=== PATIENT | female | born 1935 | race Two or more races ===

== ENCOUNTER 2022-12-01 | Inpatient (IN) | payer MEDICARE, MEDICAID ==
[~2022-12-01] VITALS: Ht 160 cm; Wt 99.3 kg
[2022-12-03] VITALS (7 sets, daily range): TEMP 98.4; O2SAT 98–99
[2022-12-03] MEDS ORDERED: REMEDY ESSENTIAL ZINC PASTE 113 GM TP PRN (07:15)
[2022-12-03] MEDS ORDERED: POLYVINYL ALCOHOL OPHT DROPS 15 ML BOTTLE EACHEYE PRN (07:15)
[2022-12-03] MEDS ORDERED: MELATONIN 3 MG TABLET PO PRN (07:15)
[2022-12-03] MEDS ORDERED: IPRATROPIUM/ALBUTEROL SULFATE 14.7 GM INHALER INH PRN (07:15)
[2022-12-03] MEDS: IPRATROPIUM/ALBUTEROL SULFATE 3 ML AMPUL.NEB NEB SCH ×3 (07:59→19:15)
[2022-12-03] MEDS: HYDROGEN PEROXIDE 3% 118 ML BOTTLE TP SCH ×2 (07:59→21:08)
[2022-12-03] MEDS: BRINZOLAMIDE EACHEYE SCH ×2 (09:49→17:41)
[2022-12-03] MEDS: FOLIC ACID 1 MG TABLET PO SCH (09:49)
[2022-12-03] MEDS: BRIMONIDINE EACHEYE SCH ×2 (09:49→17:41)
[2022-12-03] MEDS: FERROUS SULFATE 325 MG TABEC PO SCH (09:49)
[2022-12-03] MEDS: TOLTERODINE 1 MG TABLET PO SCH ×2 (09:49→17:41)
[2022-12-03] MEDS: levETIRAcetam 500 MG/5 ML LIQUID UDC PO SCH ×2 (09:50→17:41)
[2022-12-03] MEDS: REMEDY ESSENTIAL ZINC PASTE 113 GM TP SCH ×2 (09:50→21:06)
[2022-12-03] MEDS: VITAMINS A AND D OINT 42 GM TUBE TP SCH ×2 (09:50→21:06)
[2022-12-03] MEDS: MIRALAX 17 GM POWD.PACK PO SCH ×2 (09:50→17:41)
[2022-12-03] MEDS: ASPIRIN 81 MG TAB.CHEW PO SCH (17:41)
[2022-12-03] MEDS: OMEGA-3 FATTY ACIDS/FISH OIL CAPSULE PO SCH (17:41)
[2022-12-03] MEDS: CHOLECALCIFEROL 1,000 UNIT TABLET PO SCH (17:42)
[2022-12-03] MEDS: ATORVASTATIN 20 MG TABLET PO SCH (17:42)
[2022-12-03] MEDS: MULTIVIT, IRON, MIN NO. 8, FA TABLET PO SCH (17:42)
[2022-12-03] MEDS: MAGNESIUM OXIDE 400 MG TABLET PO SCH (17:42)
[2022-12-03] MEDS: LATANOPROST OPHT DROP 2.5 ML BOTTLE EACHEYE SCH (21:06)
[2022-12-04] VITALS (11 sets, daily range): TEMP 98–98.2; O2SAT 97–99
[2022-12-04] MEDS: IPRATROPIUM/ALBUTEROL SULFATE 3 ML AMPUL.NEB NEB SCH ×4 (01:30→19:30)
[2022-12-04] MEDS: LEVOTHYROXINE SODIUM 112 MCG TABLET PO SCH (05:38)
[2022-12-04] MEDS: HYDROGEN PEROXIDE 3% 118 ML BOTTLE TP SCH ×2 (07:31→20:43)
[2022-12-04] MEDS: FOLIC ACID 1 MG TABLET PO SCH (09:40)
[2022-12-04] MEDS: levETIRAcetam 500 MG/5 ML LIQUID UDC PO SCH ×2 (09:40→17:33)
[2022-12-04] MEDS: TOLTERODINE 1 MG TABLET PO SCH ×2 (09:40→17:33)
[2022-12-04] MEDS: MIRALAX 17 GM POWD.PACK PO SCH ×2 (09:40→17:33)
[2022-12-04] MEDS: FERROUS SULFATE 325 MG TABEC PO SCH (09:40)
[2022-12-04] MEDS: BRIMONIDINE EACHEYE SCH ×2 (09:41→17:33)
[2022-12-04] MEDS: VITAMINS A AND D OINT 42 GM TUBE TP SCH ×2 (09:41→21:00)
[2022-12-04] MEDS: REMEDY ESSENTIAL ZINC PASTE 113 GM TP SCH ×2 (09:41→21:00)
[2022-12-04] MEDS: BRINZOLAMIDE EACHEYE SCH ×2 (09:41→17:33)
[2022-12-04] MEDS: ASPIRIN 81 MG TAB.CHEW PO SCH (17:33)
[2022-12-04] MEDS: OMEGA-3 FATTY ACIDS/FISH OIL CAPSULE PO SCH (17:33)
[2022-12-04] MEDS: ATORVASTATIN 20 MG TABLET PO SCH (17:34)
[2022-12-04] MEDS: MULTIVIT, IRON, MIN NO. 8, FA TABLET PO SCH (17:34)
[2022-12-04] MEDS: CHOLECALCIFEROL 1,000 UNIT TABLET PO SCH (17:34)
[2022-12-04] MEDS: MAGNESIUM OXIDE 400 MG TABLET PO SCH (17:34)
[2022-12-04] MEDS: LATANOPROST OPHT DROP 2.5 ML BOTTLE EACHEYE SCH (21:00)
[2022-12-05] VITALS (10 sets, daily range): TEMP 98–98.2; O2SAT 97–99
[2022-12-05] MEDS: IPRATROPIUM/ALBUTEROL SULFATE 3 ML AMPUL.NEB NEB SCH ×4 (01:32→19:09)
[2022-12-05] MEDS: LEVOTHYROXINE SODIUM 112 MCG TABLET PO SCH (06:10)
[2022-12-05] MEDS: HYDROGEN PEROXIDE 3% 118 ML BOTTLE TP SCH ×2 (07:16→21:14)
[2022-12-05] MEDS: TOLTERODINE 1 MG TABLET PO SCH ×2 (09:26→17:05)
[2022-12-05] MEDS: BRIMONIDINE EACHEYE SCH ×2 (09:26→17:00)
[2022-12-05] MEDS: BRINZOLAMIDE EACHEYE SCH ×2 (09:26→17:00)
[2022-12-05] MEDS: FERROUS SULFATE 325 MG TABEC PO SCH (09:26)
[2022-12-05] MEDS: levETIRAcetam 500 MG/5 ML LIQUID UDC PO SCH ×2 (09:27→17:05)
[2022-12-05] MEDS: MIRALAX 17 GM POWD.PACK PO SCH ×2 (09:27→17:06)
[2022-12-05] MEDS: VITAMINS A AND D OINT 42 GM TUBE TP SCH ×2 (09:27→20:28)
[2022-12-05] MEDS: FOLIC ACID 1 MG TABLET PO SCH (09:27)
[2022-12-05] MEDS: REMEDY ESSENTIAL ZINC PASTE 113 GM TP SCH ×2 (09:27→20:28)
[2022-12-05] MEDS: ASPIRIN 81 MG TAB.CHEW PO SCH (17:06)
[2022-12-05] MEDS: OMEGA-3 FATTY ACIDS/FISH OIL CAPSULE PO SCH (17:06)
[2022-12-05] MEDS: ATORVASTATIN 20 MG TABLET PO SCH (17:06)
[2022-12-05] MEDS: CHOLECALCIFEROL 1,000 UNIT TABLET PO SCH (17:07)
[2022-12-05] MEDS: MULTIVIT, IRON, MIN NO. 8, FA TABLET PO SCH (17:07)
[2022-12-05] MEDS: MAGNESIUM OXIDE 400 MG TABLET PO SCH (17:07)
[2022-12-05] MEDS: GUAIFENESIN SUGAR FREE 100 MG/5 ML UDC PO PRN (17:11)
[2022-12-05] MEDS: BENZONATATE 100 MG CAPSULE PO PRN (17:11)
[2022-12-05] MEDS: LATANOPROST OPHT DROP 2.5 ML BOTTLE EACHEYE SCH (20:27)
[2022-12-06] VITALS (11 sets, daily range): TEMP 96.9–97; O2SAT 98–99
[2022-12-06] MEDS: IPRATROPIUM/ALBUTEROL SULFATE 3 ML AMPUL.NEB NEB SCH ×4 (02:22→19:26)
[2022-12-06] MEDS: LEVOTHYROXINE SODIUM 112 MCG TABLET PO SCH (05:51)
[2022-12-06] MEDS: HYDROGEN PEROXIDE 3% 118 ML BOTTLE TP SCH ×2 (07:35→21:00)
[2022-12-06] MEDS: VITAMINS A AND D OINT 42 GM TUBE TP SCH ×2 (09:00→21:36)
[2022-12-06] MEDS: REMEDY ESSENTIAL ZINC PASTE 113 GM TP SCH ×2 (09:00→21:35)
[2022-12-06] MEDS: BRIMONIDINE EACHEYE SCH ×2 (09:50→17:04)
[2022-12-06] MEDS: BRINZOLAMIDE EACHEYE SCH ×2 (09:50→17:04)
[2022-12-06] MEDS: TOLTERODINE 1 MG TABLET PO SCH ×2 (09:52→17:05)
[2022-12-06] MEDS: FERROUS SULFATE 325 MG TABEC PO SCH (09:56)
[2022-12-06] MEDS: FOLIC ACID 1 MG TABLET PO SCH (09:57)
[2022-12-06] MEDS: MIRALAX 17 GM POWD.PACK PO SCH ×2 (09:58→17:06)
[2022-12-06] MEDS: levETIRAcetam 500 MG/5 ML LIQUID UDC PO SCH ×2 (09:58→17:05)
[2022-12-06] MEDS: BENZONATATE 100 MG CAPSULE PO PRN (10:00)
[2022-12-06] MEDS: GUAIFENESIN SUGAR FREE 100 MG/5 ML UDC PO PRN (14:14)
[2022-12-06] MEDS: OMEGA-3 FATTY ACIDS/FISH OIL CAPSULE PO SCH (17:06)
[2022-12-06] MEDS: ASPIRIN 81 MG TAB.CHEW PO SCH (17:06)
[2022-12-06] MEDS: ATORVASTATIN 20 MG TABLET PO SCH (17:07)
[2022-12-06] MEDS: MAGNESIUM OXIDE 400 MG TABLET PO SCH (17:07)
[2022-12-06] MEDS: MULTIVIT, IRON, MIN NO. 8, FA TABLET PO SCH (17:07)
[2022-12-06] MEDS: CHOLECALCIFEROL 1,000 UNIT TABLET PO SCH (17:08)
[2022-12-06] MEDS: HYDROGEN PEROXIDE 3% 118 ML BOTTLE TP PRN (19:27)
[2022-12-06] MEDS: LATANOPROST OPHT DROP 2.5 ML BOTTLE EACHEYE SCH (21:35)
[2022-12-07] VITALS (11 sets, daily range): TEMP 97.6–98.4; O2SAT 98–99
[2022-12-07] MEDS: IPRATROPIUM/ALBUTEROL SULFATE 3 ML AMPUL.NEB NEB SCH ×4 (00:16→19:15)
[2022-12-07] MEDS: LEVOTHYROXINE SODIUM 112 MCG TABLET PO SCH (07:15)
[2022-12-07] MEDS: HYDROGEN PEROXIDE 3% 118 ML BOTTLE TP SCH ×2 (09:00→21:00)
[2022-12-07] MEDS: TOLTERODINE 1 MG TABLET PO SCH ×2 (10:00→17:29)
[2022-12-07] MEDS: MIRALAX 17 GM POWD.PACK PO SCH ×2 (10:00→17:30)
[2022-12-07] MEDS: FERROUS SULFATE 325 MG TABEC PO SCH (10:00)
[2022-12-07] MEDS: FOLIC ACID 1 MG TABLET PO SCH (10:00)
[2022-12-07] MEDS: levETIRAcetam 500 MG/5 ML LIQUID UDC PO SCH ×2 (10:00→17:29)
[2022-12-07] MEDS: VITAMINS A AND D OINT 42 GM TUBE TP SCH ×2 (10:00→20:49)
[2022-12-07] MEDS: REMEDY ESSENTIAL ZINC PASTE 113 GM TP SCH ×2 (10:00→20:49)
[2022-12-07] MEDS: BRINZOLAMIDE EACHEYE SCH ×2 (10:00→17:29)
[2022-12-07] MEDS: GUAIFENESIN SUGAR FREE 100 MG/5 ML UDC PO PRN ×2 (10:00→17:33)
[2022-12-07] MEDS: BRIMONIDINE EACHEYE SCH ×2 (10:00→17:29)
[2022-12-07] MEDS: OMEGA-3 FATTY ACIDS/FISH OIL CAPSULE PO SCH (17:30)
[2022-12-07] MEDS: ASPIRIN 81 MG TAB.CHEW PO SCH (17:30)
[2022-12-07] MEDS: ATORVASTATIN 20 MG TABLET PO SCH (17:32)
[2022-12-07] MEDS: CHOLECALCIFEROL 1,000 UNIT TABLET PO SCH (17:32)
[2022-12-07] MEDS: MAGNESIUM OXIDE 400 MG TABLET PO SCH (17:32)
[2022-12-07] MEDS: MULTIVIT, IRON, MIN NO. 8, FA TABLET PO SCH (17:32)
[2022-12-07] MEDS: BENZONATATE 100 MG CAPSULE PO PRN (17:33)
[2022-12-07] MEDS: LATANOPROST OPHT DROP 2.5 ML BOTTLE EACHEYE SCH (20:49)
[2022-12-08] VITALS (11 sets, daily range): TEMP 98.2–98.5; O2SAT 98–99
[2022-12-08] MEDS: IPRATROPIUM/ALBUTEROL SULFATE 3 ML AMPUL.NEB NEB SCH ×4 (00:45→19:30)
[2022-12-08] MEDS: LEVOTHYROXINE SODIUM 112 MCG TABLET PO SCH (05:05)
[2022-12-08] MEDS: HYDROGEN PEROXIDE 3% 118 ML BOTTLE TP SCH ×2 (08:13→21:50)
[2022-12-08] MEDS: BRINZOLAMIDE EACHEYE SCH ×2 (09:24→16:25)
[2022-12-08] MEDS: BRIMONIDINE EACHEYE SCH ×2 (09:24→16:25)
[2022-12-08] MEDS: TOLTERODINE 1 MG TABLET PO SCH ×2 (09:24→16:25)
[2022-12-08] MEDS: REMEDY ESSENTIAL ZINC PASTE 113 GM TP SCH ×2 (09:26→21:00)
[2022-12-08] MEDS: levETIRAcetam 500 MG/5 ML LIQUID UDC PO SCH ×2 (09:26→16:25)
[2022-12-08] MEDS: VITAMINS A AND D OINT 42 GM TUBE TP SCH ×2 (09:26→21:00)
[2022-12-08] MEDS: FOLIC ACID 1 MG TABLET PO SCH (09:26)
[2022-12-08] MEDS: MIRALAX 17 GM POWD.PACK PO SCH ×2 (09:26→16:25)
[2022-12-08] MEDS: FERROUS SULFATE 325 MG TABEC PO SCH (09:34)
[2022-12-08] MEDS: BENZONATATE 100 MG CAPSULE PO PRN (16:40)
[2022-12-08] MEDS: GUAIFENESIN SUGAR FREE 100 MG/5 ML UDC PO PRN (16:40)
[2022-12-08] MEDS: ATORVASTATIN 20 MG TABLET PO SCH (17:07)
[2022-12-08] MEDS: CHOLECALCIFEROL 1,000 UNIT TABLET PO SCH (17:07)
[2022-12-08] MEDS: ASPIRIN 81 MG TAB.CHEW PO SCH (17:07)
[2022-12-08] MEDS: MULTIVIT, IRON, MIN NO. 8, FA TABLET PO SCH (17:07)
[2022-12-08] MEDS: MAGNESIUM OXIDE 400 MG TABLET PO SCH (17:07)
[2022-12-08] MEDS: OMEGA-3 FATTY ACIDS/FISH OIL CAPSULE PO SCH (17:07)
[2022-12-08] MEDS: LATANOPROST OPHT DROP 2.5 ML BOTTLE EACHEYE SCH (21:00)
[2022-12-09] VITALS (11 sets, daily range): TEMP 97.9–98.7; O2SAT 98–99
[2022-12-09] MEDS: IPRATROPIUM/ALBUTEROL SULFATE 3 ML AMPUL.NEB NEB SCH ×4 (01:15→19:09)
[2022-12-09] MEDS: LEVOTHYROXINE SODIUM 112 MCG TABLET PO SCH (05:31)
[2022-12-09 07:52] LABS: BASOPHILS % (AUTO) 0.4 % (0.0-2.0); EOSINOPHILS # (AUTO) 0.1 K/uL (0.0-0.7); EOSINOPHILS % (AUTO) 2.2 % (0.0-7.0); HEMATOCRIT 32.5 % (31.2-41.9); HEMOGLOBIN 10.6 g/dL (10.9-14.3); LYMPHOCYTES # (AUTO) 1.3 K/uL (0.8-4.8); LYMPHOCYTES % (AUTO) 22.8 % (20.5-51.5); MEAN CORPUSCULAR HEMOGLOBIN 29.3 uug (24.7-32.8); MEAN CORPUSCULAR HGB CONC 33 g/dL (32.3-35.6); MEAN CORPUSCULAR VOLUME 90.1 fL (75.5-95.3); MONOCYTES # (AUTO) 0.6 K/uL (0.1-1.30); MONOCYTES % (AUTO) 11.1 % (0.0-11.0); NEUTROPHILS # (AUTO) 3.6 K/uL (1.8-8.9); NEUTROPHILS % (AUTO) 63.5 % (38.5-71.5); PLATELET COUNT (AUTO) 225 K/uL (179-408); RED CELL DISTRIBUTION WIDTH 15.2 % (12.3-17.7); WHITE BLOOD COUNT (AUTO) 5.7 K/uL (3.8-11.8)
[2022-12-09 08:06] LABS: CALCIUM 8.6 mg/dL (8.5-10.1); CREATININE 0.6 mg/dL (0.6-1.3); MAGNESIUM 1.8 mg/dL (1.8-2.4); PHOSPHOROUS 4.3 mg/dL (2.5-4.9); POTASSIUM 4.4 mmol/L (3.5-5.1)
[2022-12-09 08:08] LABS: DIFFERENTIAL COMMENT 1
[2022-12-09] MEDS: HYDROGEN PEROXIDE 3% 118 ML BOTTLE TP SCH ×2 (08:30→20:54)
[2022-12-09] MEDS: REMEDY ESSENTIAL ZINC PASTE 113 GM TP SCH ×2 (09:00→21:00)
[2022-12-09] MEDS: TOLTERODINE 1 MG TABLET PO SCH ×2 (09:00→16:33)
[2022-12-09] MEDS: FERROUS SULFATE 325 MG TABEC PO SCH (09:00)
[2022-12-09] MEDS: BRIMONIDINE EACHEYE SCH ×2 (09:00→16:33)
[2022-12-09] MEDS: BRINZOLAMIDE EACHEYE SCH ×2 (09:00→16:33)
[2022-12-09] MEDS: levETIRAcetam 500 MG/5 ML LIQUID UDC PO SCH ×2 (09:00→16:33)
[2022-12-09] MEDS: FOLIC ACID 1 MG TABLET PO SCH (09:00)
[2022-12-09] MEDS: MIRALAX 17 GM POWD.PACK PO SCH ×2 (09:00→16:33)
[2022-12-09] MEDS: VITAMINS A AND D OINT 42 GM TUBE TP SCH ×2 (09:00→21:00)
[2022-12-09] MEDS: ASPIRIN 81 MG TAB.CHEW PO SCH (16:33)
[2022-12-09] MEDS: BENZONATATE 100 MG CAPSULE PO PRN (16:34)
[2022-12-09] MEDS: GUAIFENESIN SUGAR FREE 100 MG/5 ML UDC PO PRN (16:34)
[2022-12-09] MEDS: OMEGA-3 FATTY ACIDS/FISH OIL CAPSULE PO SCH (17:02)
[2022-12-09] MEDS: MAGNESIUM OXIDE 400 MG TABLET PO SCH (17:02)
[2022-12-09] MEDS: ATORVASTATIN 20 MG TABLET PO SCH (17:02)
[2022-12-09] MEDS: MULTIVIT, IRON, MIN NO. 8, FA TABLET PO SCH (17:02)
[2022-12-09] MEDS: CHOLECALCIFEROL 1,000 UNIT TABLET PO SCH (17:03)
[2022-12-09] MEDS: LATANOPROST OPHT DROP 2.5 ML BOTTLE EACHEYE SCH (21:00)
[2022-12-10] VITALS (10 sets, daily range): TEMP 97.7–97.8; O2SAT 98–99
[2022-12-10] MEDS: IPRATROPIUM/ALBUTEROL SULFATE 3 ML AMPUL.NEB NEB SCH ×4 (01:04→19:05)
[2022-12-10] MEDS: LEVOTHYROXINE SODIUM 112 MCG TABLET PO SCH ×2 (06:20→06:51)
[2022-12-10] MEDS: HYDROGEN PEROXIDE 3% 118 ML BOTTLE TP SCH ×2 (07:55→21:52)
[2022-12-10] MEDS: levETIRAcetam 500 MG/5 ML LIQUID UDC PO SCH ×2 (08:51→17:08)
[2022-12-10] MEDS: FOLIC ACID 1 MG TABLET PO SCH (08:51)
[2022-12-10] MEDS: FERROUS SULFATE 325 MG TABEC PO SCH (08:51)
[2022-12-10] MEDS: BRINZOLAMIDE EACHEYE SCH ×2 (08:51→17:06)
[2022-12-10] MEDS: TOLTERODINE 1 MG TABLET PO SCH ×2 (08:51→17:07)
[2022-12-10] MEDS: BRIMONIDINE EACHEYE SCH ×2 (08:51→17:06)
[2022-12-10] MEDS: MIRALAX 17 GM POWD.PACK PO SCH ×2 (08:51→17:07)
[2022-12-10] MEDS: GUAIFENESIN SUGAR FREE 100 MG/5 ML UDC PO PRN (08:52)
[2022-12-10] MEDS: BENZONATATE 100 MG CAPSULE PO PRN (08:52)
[2022-12-10] MEDS: REMEDY ESSENTIAL ZINC PASTE 113 GM TP SCH ×2 (08:52→21:03)
[2022-12-10] MEDS: VITAMINS A AND D OINT 42 GM TUBE TP SCH ×2 (08:52→21:03)
[2022-12-10] MEDS: ATORVASTATIN 20 MG TABLET PO SCH (17:07)
[2022-12-10] MEDS: MAGNESIUM OXIDE 400 MG TABLET PO SCH (17:08)
[2022-12-10] MEDS: ASPIRIN 81 MG TAB.CHEW PO SCH (17:08)
[2022-12-10] MEDS: OMEGA-3 FATTY ACIDS/FISH OIL CAPSULE PO SCH (17:08)
[2022-12-10] MEDS: MULTIVIT, IRON, MIN NO. 8, FA TABLET PO SCH (17:10)
[2022-12-10] MEDS: CHOLECALCIFEROL 1,000 UNIT TABLET PO SCH (17:11)
[2022-12-10] MEDS: LATANOPROST OPHT DROP 2.5 ML BOTTLE EACHEYE SCH (21:02)
[2022-12-11] VITALS (10 sets, daily range): TEMP 97.8; O2SAT 98–99
[2022-12-11] MEDS: IPRATROPIUM/ALBUTEROL SULFATE 3 ML AMPUL.NEB NEB SCH ×4 (01:07→19:22)
[2022-12-11] MEDS: HYDROGEN PEROXIDE 3% 118 ML BOTTLE TP SCH ×2 (08:42→19:22)
[2022-12-11] MEDS: BRIMONIDINE EACHEYE SCH ×2 (09:04→17:25)
[2022-12-11] MEDS: BRINZOLAMIDE EACHEYE SCH ×2 (09:04→17:25)
[2022-12-11] MEDS: TOLTERODINE 1 MG TABLET PO SCH ×2 (09:04→17:25)
[2022-12-11] MEDS: FERROUS SULFATE 325 MG TABEC PO SCH (09:05)
[2022-12-11] MEDS: FOLIC ACID 1 MG TABLET PO SCH (09:05)
[2022-12-11] MEDS: MIRALAX 17 GM POWD.PACK PO SCH ×2 (09:06→17:25)
[2022-12-11] MEDS: levETIRAcetam 500 MG/5 ML LIQUID UDC PO SCH ×2 (09:06→17:25)
[2022-12-11] MEDS: REMEDY ESSENTIAL ZINC PASTE 113 GM TP SCH ×2 (09:06→20:55)
[2022-12-11] MEDS: VITAMINS A AND D OINT 42 GM TUBE TP SCH ×2 (09:06→20:55)
[2022-12-11] MEDS: GUAIFENESIN SUGAR FREE 100 MG/5 ML UDC PO PRN (17:24)
[2022-12-11] MEDS: BENZONATATE 100 MG CAPSULE PO PRN (17:24)
[2022-12-11] MEDS: ASPIRIN 81 MG TAB.CHEW PO SCH (17:25)
[2022-12-11] MEDS: ATORVASTATIN 20 MG TABLET PO SCH (17:26)
[2022-12-11] MEDS: OMEGA-3 FATTY ACIDS/FISH OIL CAPSULE PO SCH (17:26)
[2022-12-11] MEDS: MAGNESIUM OXIDE 400 MG TABLET PO SCH (17:27)
[2022-12-11] MEDS: CHOLECALCIFEROL 1,000 UNIT TABLET PO SCH (17:27)
[2022-12-11] MEDS: MULTIVIT, IRON, MIN NO. 8, FA TABLET PO SCH (17:27)
[2022-12-11] MEDS: LATANOPROST OPHT DROP 2.5 ML BOTTLE EACHEYE SCH (20:55)
[2022-12-12] VITALS (10 sets, daily range): TEMP 97.5–98; O2SAT 98–99
[2022-12-12] MEDS: IPRATROPIUM/ALBUTEROL SULFATE 3 ML AMPUL.NEB NEB SCH ×4 (01:34→19:17)
[2022-12-12] MEDS: LEVOTHYROXINE SODIUM 112 MCG TABLET PO SCH (05:33)
[2022-12-12] MEDS: HYDROGEN PEROXIDE 3% 118 ML BOTTLE TP SCH ×2 (09:12→21:00)
[2022-12-12] MEDS: BRIMONIDINE EACHEYE SCH ×2 (09:44→17:20)
[2022-12-12] MEDS: TOLTERODINE 1 MG TABLET PO SCH ×2 (09:44→17:20)
[2022-12-12] MEDS: BRINZOLAMIDE EACHEYE SCH ×2 (09:44→17:20)
[2022-12-12] MEDS: FOLIC ACID 1 MG TABLET PO SCH (09:45)
[2022-12-12] MEDS: FERROUS SULFATE 325 MG TABEC PO SCH (09:45)
[2022-12-12] MEDS: levETIRAcetam 500 MG/5 ML LIQUID UDC PO SCH ×2 (09:46→17:20)
[2022-12-12] MEDS: VITAMINS A AND D OINT 42 GM TUBE TP SCH ×2 (09:47→21:03)
[2022-12-12] MEDS: MIRALAX 17 GM POWD.PACK PO SCH ×2 (09:47→17:20)
[2022-12-12] MEDS: REMEDY ESSENTIAL ZINC PASTE 113 GM TP SCH ×2 (09:47→21:03)
[2022-12-12] MEDS: MAGNESIUM OXIDE 400 MG TABLET PO SCH (17:20)
[2022-12-12] MEDS: ATORVASTATIN 20 MG TABLET PO SCH (17:20)
[2022-12-12] MEDS: CHOLECALCIFEROL 1,000 UNIT TABLET PO SCH (17:20)
[2022-12-12] MEDS: OMEGA-3 FATTY ACIDS/FISH OIL CAPSULE PO SCH (17:20)
[2022-12-12] MEDS: ASPIRIN 81 MG TAB.CHEW PO SCH (17:20)
[2022-12-12] MEDS: MULTIVIT, IRON, MIN NO. 8, FA TABLET PO SCH (17:20)
[2022-12-12] MEDS: GUAIFENESIN SUGAR FREE 100 MG/5 ML UDC PO PRN (17:36)
[2022-12-12] MEDS: LATANOPROST OPHT DROP 2.5 ML BOTTLE EACHEYE SCH (21:03)
[2022-12-13] VITALS (10 sets, daily range): TEMP 97.2–98.5; O2SAT 98–99
[2022-12-13] MEDS: IPRATROPIUM/ALBUTEROL SULFATE 3 ML AMPUL.NEB NEB SCH ×4 (01:24→19:10)
[2022-12-13] MEDS: LEVOTHYROXINE SODIUM 112 MCG TABLET PO SCH (05:52)
[2022-12-13] MEDS: HYDROGEN PEROXIDE 3% 118 ML BOTTLE TP SCH ×2 (09:52→19:10)
[2022-12-13] MEDS: levETIRAcetam 500 MG/5 ML LIQUID UDC PO SCH ×2 (09:53→17:57)
[2022-12-13] MEDS: REMEDY ESSENTIAL ZINC PASTE 113 GM TP SCH ×2 (09:53→20:57)
[2022-12-13] MEDS: MIRALAX 17 GM POWD.PACK PO SCH ×2 (09:53→17:57)
[2022-12-13] MEDS: VITAMINS A AND D OINT 42 GM TUBE TP SCH ×2 (09:53→20:57)
[2022-12-13] MEDS: BRINZOLAMIDE EACHEYE SCH ×2 (09:53→17:57)
[2022-12-13] MEDS: FOLIC ACID 1 MG TABLET PO SCH (09:53)
[2022-12-13] MEDS: FERROUS SULFATE 325 MG TABEC PO SCH (09:53)
[2022-12-13] MEDS: TOLTERODINE 1 MG TABLET PO SCH ×2 (09:53→17:57)
[2022-12-13] MEDS: BRIMONIDINE EACHEYE SCH ×2 (09:53→17:57)
[2022-12-13] MEDS: GUAIFENESIN SUGAR FREE 100 MG/5 ML UDC PO PRN ×2 (09:53→17:58)
[2022-12-13] MEDS: BENZONATATE 100 MG CAPSULE PO PRN ×2 (13:41→17:58)
[2022-12-13] MEDS: OMEGA-3 FATTY ACIDS/FISH OIL CAPSULE PO SCH (17:57)
[2022-12-13] MEDS: MAGNESIUM OXIDE 400 MG TABLET PO SCH (17:57)
[2022-12-13] MEDS: MULTIVIT, IRON, MIN NO. 8, FA TABLET PO SCH (17:57)
[2022-12-13] MEDS: ATORVASTATIN 20 MG TABLET PO SCH (17:57)
[2022-12-13] MEDS: CHOLECALCIFEROL 1,000 UNIT TABLET PO SCH (17:57)
[2022-12-13] MEDS: ASPIRIN 81 MG TAB.CHEW PO SCH (17:57)
[2022-12-13] MEDS: LATANOPROST OPHT DROP 2.5 ML BOTTLE EACHEYE SCH (20:56)
[2022-12-14] VITALS (10 sets, daily range): TEMP 97.7–97.8; O2SAT 97–99
[2022-12-14] MEDS: IPRATROPIUM/ALBUTEROL SULFATE 3 ML AMPUL.NEB NEB SCH ×4 (00:37→19:11)
[2022-12-14] MEDS: LEVOTHYROXINE SODIUM 112 MCG TABLET PO SCH (05:21)
[2022-12-14] MEDS: HYDROGEN PEROXIDE 3% 118 ML BOTTLE TP SCH ×2 (07:44→19:11)
[2022-12-14] MEDS: BRINZOLAMIDE EACHEYE SCH ×2 (09:35→18:00)
[2022-12-14] MEDS: FERROUS SULFATE 325 MG TABEC PO SCH (09:35)
[2022-12-14] MEDS: FOLIC ACID 1 MG TABLET PO SCH (09:35)
[2022-12-14] MEDS: BRIMONIDINE EACHEYE SCH ×2 (09:35→18:00)
[2022-12-14] MEDS: TOLTERODINE 1 MG TABLET PO SCH ×2 (09:35→18:00)
[2022-12-14] MEDS: REMEDY ESSENTIAL ZINC PASTE 113 GM TP SCH ×2 (09:36→20:56)
[2022-12-14] MEDS: MIRALAX 17 GM POWD.PACK PO SCH ×2 (09:36→18:00)
[2022-12-14] MEDS: VITAMINS A AND D OINT 42 GM TUBE TP SCH ×2 (09:36→20:57)
[2022-12-14] MEDS: levETIRAcetam 500 MG/5 ML LIQUID UDC PO SCH ×2 (09:36→18:00)
[2022-12-14] MEDS: GUAIFENESIN SUGAR FREE 100 MG/5 ML UDC PO PRN ×2 (09:36→18:29)
[2022-12-14] MEDS: ATORVASTATIN 20 MG TABLET PO SCH (18:24)
[2022-12-14] MEDS: ASPIRIN 81 MG TAB.CHEW PO SCH (18:24)
[2022-12-14] MEDS: CHOLECALCIFEROL 1,000 UNIT TABLET PO SCH (18:24)
[2022-12-14] MEDS: MULTIVIT, IRON, MIN NO. 8, FA TABLET PO SCH (18:24)
[2022-12-14] MEDS: MAGNESIUM OXIDE 400 MG TABLET PO SCH (18:24)
[2022-12-14] MEDS: OMEGA-3 FATTY ACIDS/FISH OIL CAPSULE PO SCH (18:24)
[2022-12-14] MEDS: LATANOPROST OPHT DROP 2.5 ML BOTTLE EACHEYE SCH (20:56)
[2022-12-15] VITALS (10 sets, daily range): TEMP 97.7–98.8; O2SAT 98–99
[2022-12-15] MEDS: IPRATROPIUM/ALBUTEROL SULFATE 3 ML AMPUL.NEB NEB SCH ×4 (00:30→19:12)
[2022-12-15] MEDS: LEVOTHYROXINE SODIUM 112 MCG TABLET PO SCH (05:36)
[2022-12-15] MEDS: HYDROGEN PEROXIDE 3% 118 ML BOTTLE TP SCH ×2 (07:37→19:12)
[2022-12-15] MEDS: TOLTERODINE 1 MG TABLET PO SCH ×2 (09:28→16:56)
[2022-12-15] MEDS: BRINZOLAMIDE EACHEYE SCH ×2 (09:28→16:53)
[2022-12-15] MEDS: FERROUS SULFATE 325 MG TABEC PO SCH (09:28)
[2022-12-15] MEDS: FOLIC ACID 1 MG TABLET PO SCH (09:28)
[2022-12-15] MEDS: VITAMINS A AND D OINT 42 GM TUBE TP SCH ×2 (09:28→21:04)
[2022-12-15] MEDS: levETIRAcetam 500 MG/5 ML LIQUID UDC PO SCH ×2 (09:28→16:56)
[2022-12-15] MEDS: REMEDY ESSENTIAL ZINC PASTE 113 GM TP SCH ×2 (09:28→21:04)
[2022-12-15] MEDS: BRIMONIDINE EACHEYE SCH ×2 (09:28→16:53)
[2022-12-15] MEDS: MIRALAX 17 GM POWD.PACK PO SCH ×2 (09:28→16:56)
[2022-12-15] MEDS: BENZONATATE 100 MG CAPSULE PO PRN ×2 (09:30→16:59)
[2022-12-15] MEDS: GUAIFENESIN SUGAR FREE 100 MG/5 ML UDC PO PRN ×2 (09:30→16:59)
[2022-12-15] MEDS: MAGNESIUM OXIDE 400 MG TABLET PO SCH (17:06)
[2022-12-15] MEDS: OMEGA-3 FATTY ACIDS/FISH OIL CAPSULE PO SCH (17:06)
[2022-12-15] MEDS: ATORVASTATIN 20 MG TABLET PO SCH (17:06)
[2022-12-15] MEDS: ASPIRIN 81 MG TAB.CHEW PO SCH (17:06)
[2022-12-15] MEDS: CHOLECALCIFEROL 1,000 UNIT TABLET PO SCH (17:07)
[2022-12-15] MEDS: MULTIVIT, IRON, MIN NO. 8, FA TABLET PO SCH (17:07)
[2022-12-15] MEDS: LATANOPROST OPHT DROP 2.5 ML BOTTLE EACHEYE SCH (21:04)
[2022-12-16] VITALS (10 sets, daily range): TEMP 97.8–98.4; O2SAT 98–99
[2022-12-16] MEDS: IPRATROPIUM/ALBUTEROL SULFATE 3 ML AMPUL.NEB NEB SCH ×5 (00:30→19:20)
[2022-12-16] MEDS: LEVOTHYROXINE SODIUM 112 MCG TABLET PO SCH (05:48)
[2022-12-16] MEDS: HYDROGEN PEROXIDE 3% 118 ML BOTTLE TP SCH ×2 (07:17→21:00)
[2022-12-16] MEDS: VITAMINS A AND D OINT 42 GM TUBE TP SCH ×2 (09:25→21:00)
[2022-12-16] MEDS: BRINZOLAMIDE EACHEYE SCH ×2 (09:25→17:00)
[2022-12-16] MEDS: TOLTERODINE 1 MG TABLET PO SCH ×2 (09:25→17:00)
[2022-12-16] MEDS: FOLIC ACID 1 MG TABLET PO SCH (09:25)
[2022-12-16] MEDS: REMEDY ESSENTIAL ZINC PASTE 113 GM TP SCH ×2 (09:25→21:00)
[2022-12-16] MEDS: BRIMONIDINE EACHEYE SCH ×2 (09:25→17:00)
[2022-12-16] MEDS: FERROUS SULFATE 325 MG TABEC PO SCH (09:25)
[2022-12-16] MEDS: MIRALAX 17 GM POWD.PACK PO SCH ×2 (09:25→17:00)
[2022-12-16] MEDS: levETIRAcetam 500 MG/5 ML LIQUID UDC PO SCH ×2 (09:25→17:00)
[2022-12-16] MEDS: MAGNESIUM OXIDE 400 MG TABLET PO SCH (18:10)
[2022-12-16] MEDS: ASPIRIN 81 MG TAB.CHEW PO SCH (18:10)
[2022-12-16] MEDS: OMEGA-3 FATTY ACIDS/FISH OIL CAPSULE PO SCH (18:10)
[2022-12-16] MEDS: MULTIVIT, IRON, MIN NO. 8, FA TABLET PO SCH (18:10)
[2022-12-16] MEDS: ATORVASTATIN 20 MG TABLET PO SCH (18:11)
[2022-12-16] MEDS: CHOLECALCIFEROL 1,000 UNIT TABLET PO SCH (18:11)
[2022-12-16] MEDS: LATANOPROST OPHT DROP 2.5 ML BOTTLE EACHEYE SCH (21:00)
[2022-12-17] VITALS (10 sets, daily range): TEMP 97.7–97.9; O2SAT 97–99
[2022-12-17] MEDS: IPRATROPIUM/ALBUTEROL SULFATE 3 ML AMPUL.NEB NEB SCH ×4 (00:35→19:29)
[2022-12-17] MEDS: LEVOTHYROXINE SODIUM 112 MCG TABLET PO SCH (06:36)
[2022-12-17] MEDS: HYDROGEN PEROXIDE 3% 118 ML BOTTLE TP SCH ×2 (07:25→20:37)
[2022-12-17] MEDS: VITAMINS A AND D OINT 42 GM TUBE TP SCH ×2 (09:18→20:47)
[2022-12-17] MEDS: BRINZOLAMIDE EACHEYE SCH ×2 (09:18→17:41)
[2022-12-17] MEDS: MIRALAX 17 GM POWD.PACK PO SCH ×2 (09:18→17:41)
[2022-12-17] MEDS: REMEDY ESSENTIAL ZINC PASTE 113 GM TP SCH ×2 (09:18→20:47)
[2022-12-17] MEDS: FERROUS SULFATE 325 MG TABEC PO SCH (09:18)
[2022-12-17] MEDS: BRIMONIDINE EACHEYE SCH ×2 (09:18→17:41)
[2022-12-17] MEDS: FOLIC ACID 1 MG TABLET PO SCH (09:18)
[2022-12-17] MEDS: TOLTERODINE 1 MG TABLET PO SCH ×2 (09:18→17:41)
[2022-12-17] MEDS: levETIRAcetam 500 MG/5 ML LIQUID UDC PO SCH ×2 (09:18→17:41)
[2022-12-17] MEDS: ASPIRIN 81 MG TAB.CHEW PO SCH (17:41)
[2022-12-17] MEDS: ATORVASTATIN 20 MG TABLET PO SCH (17:41)
[2022-12-17] MEDS: MULTIVIT, IRON, MIN NO. 8, FA TABLET PO SCH (17:41)
[2022-12-17] MEDS: CHOLECALCIFEROL 1,000 UNIT TABLET PO SCH (17:41)
[2022-12-17] MEDS: MAGNESIUM OXIDE 400 MG TABLET PO SCH (17:41)
[2022-12-17] MEDS: OMEGA-3 FATTY ACIDS/FISH OIL CAPSULE PO SCH (17:41)
[2022-12-17] MEDS: BENZONATATE 100 MG CAPSULE PO PRN (17:42)
[2022-12-17] MEDS: LATANOPROST OPHT DROP 2.5 ML BOTTLE EACHEYE SCH (20:47)
[2022-12-18] VITALS (10 sets, daily range): TEMP 97.8–97.9; O2SAT 97–99
[2022-12-18] MEDS: IPRATROPIUM/ALBUTEROL SULFATE 3 ML AMPUL.NEB NEB SCH ×4 (01:11→19:04)
[2022-12-18] MEDS: LEVOTHYROXINE SODIUM 112 MCG TABLET PO SCH (06:30)
[2022-12-18] MEDS: HYDROGEN PEROXIDE 3% 118 ML BOTTLE TP SCH ×2 (07:22→20:49)
[2022-12-18] MEDS: BRIMONIDINE EACHEYE SCH ×2 (09:18→17:24)
[2022-12-18] MEDS: BRINZOLAMIDE EACHEYE SCH ×2 (09:18→17:24)
[2022-12-18] MEDS: FERROUS SULFATE 325 MG TABEC PO SCH (09:19)
[2022-12-18] MEDS: FOLIC ACID 1 MG TABLET PO SCH (09:19)
[2022-12-18] MEDS: MIRALAX 17 GM POWD.PACK PO SCH ×2 (09:19→17:25)
[2022-12-18] MEDS: TOLTERODINE 1 MG TABLET PO SCH ×2 (09:19→17:25)
[2022-12-18] MEDS: levETIRAcetam 500 MG/5 ML LIQUID UDC PO SCH ×2 (09:19→17:25)
[2022-12-18] MEDS: REMEDY ESSENTIAL ZINC PASTE 113 GM TP SCH ×2 (09:19→21:04)
[2022-12-18] MEDS: VITAMINS A AND D OINT 42 GM TUBE TP SCH ×2 (09:19→21:04)
[2022-12-18] MEDS: OMEGA-3 FATTY ACIDS/FISH OIL CAPSULE PO SCH (17:25)
[2022-12-18] MEDS: ASPIRIN 81 MG TAB.CHEW PO SCH (17:25)
[2022-12-18] MEDS: ATORVASTATIN 20 MG TABLET PO SCH (17:26)
[2022-12-18] MEDS: MAGNESIUM OXIDE 400 MG TABLET PO SCH (17:26)
[2022-12-18] MEDS: MULTIVIT, IRON, MIN NO. 8, FA TABLET PO SCH (17:28)
[2022-12-18] MEDS: CHOLECALCIFEROL 1,000 UNIT TABLET PO SCH (17:28)
[2022-12-18] MEDS: LATANOPROST OPHT DROP 2.5 ML BOTTLE EACHEYE SCH (21:04)
[2022-12-19] VITALS (10 sets, daily range): TEMP 97.7–97.8; O2SAT 97–99
[2022-12-19] MEDS: IPRATROPIUM/ALBUTEROL SULFATE 3 ML AMPUL.NEB NEB SCH ×4 (01:04→19:11)
[2022-12-19] MEDS: LEVOTHYROXINE SODIUM 112 MCG TABLET PO SCH (05:46)
[2022-12-19] MEDS: HYDROGEN PEROXIDE 3% 118 ML BOTTLE TP SCH ×2 (07:31→19:11)
[2022-12-19] MEDS: FERROUS SULFATE 325 MG TABEC PO SCH (08:58)
[2022-12-19] MEDS: REMEDY ESSENTIAL ZINC PASTE 113 GM TP SCH ×2 (08:58→21:34)
[2022-12-19] MEDS: MIRALAX 17 GM POWD.PACK PO SCH ×2 (08:58→17:53)
[2022-12-19] MEDS: levETIRAcetam 500 MG/5 ML LIQUID UDC PO SCH ×2 (08:58→17:53)
[2022-12-19] MEDS: BRINZOLAMIDE EACHEYE SCH ×2 (08:58→17:53)
[2022-12-19] MEDS: FOLIC ACID 1 MG TABLET PO SCH (08:58)
[2022-12-19] MEDS: BRIMONIDINE EACHEYE SCH ×2 (08:58→17:53)
[2022-12-19] MEDS: VITAMINS A AND D OINT 42 GM TUBE TP SCH ×2 (08:58→21:34)
[2022-12-19] MEDS: TOLTERODINE 1 MG TABLET PO SCH ×2 (08:58→17:53)
[2022-12-19] MEDS: ATORVASTATIN 20 MG TABLET PO SCH (17:53)
[2022-12-19] MEDS: MAGNESIUM OXIDE 400 MG TABLET PO SCH (17:53)
[2022-12-19] MEDS: ASPIRIN 81 MG TAB.CHEW PO SCH (17:53)
[2022-12-19] MEDS: OMEGA-3 FATTY ACIDS/FISH OIL CAPSULE PO SCH (17:53)
[2022-12-19] MEDS: CHOLECALCIFEROL 1,000 UNIT TABLET PO SCH (17:54)
[2022-12-19] MEDS: MULTIVIT, IRON, MIN NO. 8, FA TABLET PO SCH (17:54)
[2022-12-19] MEDS: LATANOPROST OPHT DROP 2.5 ML BOTTLE EACHEYE SCH (21:34)
[2022-12-20] VITALS (11 sets, daily range): TEMP 97.4–98.1; O2SAT 97–99
[2022-12-20] MEDS: IPRATROPIUM/ALBUTEROL SULFATE 3 ML AMPUL.NEB NEB SCH ×4 (00:30→19:15)
[2022-12-20] MEDS: BENZONATATE 100 MG CAPSULE PO PRN ×2 (01:25→17:59)
[2022-12-20] MEDS: LEVOTHYROXINE SODIUM 112 MCG TABLET PO SCH (05:56)
[2022-12-20] MEDS: HYDROGEN PEROXIDE 3% 118 ML BOTTLE TP SCH ×2 (07:16→19:15)
[2022-12-20] MEDS: BRIMONIDINE EACHEYE SCH ×2 (09:36→17:58)
[2022-12-20] MEDS: FOLIC ACID 1 MG TABLET PO SCH (09:36)
[2022-12-20] MEDS: FERROUS SULFATE 325 MG TABEC PO SCH (09:36)
[2022-12-20] MEDS: BRINZOLAMIDE EACHEYE SCH ×2 (09:36→17:58)
[2022-12-20] MEDS: TOLTERODINE 1 MG TABLET PO SCH ×2 (09:36→17:58)
[2022-12-20] MEDS: levETIRAcetam 500 MG/5 ML LIQUID UDC PO SCH ×2 (09:36→17:58)
[2022-12-20] MEDS: MIRALAX 17 GM POWD.PACK PO SCH ×2 (09:37→17:58)
[2022-12-20] MEDS: REMEDY ESSENTIAL ZINC PASTE 113 GM TP SCH ×2 (09:38→21:09)
[2022-12-20] MEDS: VITAMINS A AND D OINT 42 GM TUBE TP SCH ×2 (09:40→21:10)
[2022-12-20] MEDS: ASPIRIN 81 MG TAB.CHEW PO SCH (17:58)
[2022-12-20] MEDS: ATORVASTATIN 20 MG TABLET PO SCH (17:59)
[2022-12-20] MEDS: MULTIVIT, IRON, MIN NO. 8, FA TABLET PO SCH (17:59)
[2022-12-20] MEDS: OMEGA-3 FATTY ACIDS/FISH OIL CAPSULE PO SCH (17:59)
[2022-12-20] MEDS: MAGNESIUM OXIDE 400 MG TABLET PO SCH (17:59)
[2022-12-20] MEDS: CHOLECALCIFEROL 1,000 UNIT TABLET PO SCH (17:59)
[2022-12-20] MEDS: LATANOPROST OPHT DROP 2.5 ML BOTTLE EACHEYE SCH (21:08)
[2022-12-21] VITALS (10 sets, daily range): TEMP 98–98.4; O2SAT 97–99
[2022-12-21] MEDS: IPRATROPIUM/ALBUTEROL SULFATE 3 ML AMPUL.NEB NEB SCH ×4 (01:30→19:09)
[2022-12-21] MEDS: LEVOTHYROXINE SODIUM 112 MCG TABLET PO SCH (06:25)
[2022-12-21] MEDS: HYDROGEN PEROXIDE 3% 118 ML BOTTLE TP SCH ×2 (08:22→19:09)
[2022-12-21] MEDS: FERROUS SULFATE 325 MG TABEC PO SCH (09:23)
[2022-12-21] MEDS: BRIMONIDINE EACHEYE SCH ×2 (09:23→17:28)
[2022-12-21] MEDS: BRINZOLAMIDE EACHEYE SCH ×2 (09:23→17:28)
[2022-12-21] MEDS: FOLIC ACID 1 MG TABLET PO SCH (09:23)
[2022-12-21] MEDS: TOLTERODINE 1 MG TABLET PO SCH ×2 (09:23→17:29)
[2022-12-21] MEDS: levETIRAcetam 500 MG/5 ML LIQUID UDC PO SCH ×2 (09:24→17:30)
[2022-12-21] MEDS: VITAMINS A AND D OINT 42 GM TUBE TP SCH ×2 (09:25→20:52)
[2022-12-21] MEDS: REMEDY ESSENTIAL ZINC PASTE 113 GM TP SCH ×2 (09:25→20:52)
[2022-12-21] MEDS: MIRALAX 17 GM POWD.PACK PO SCH ×2 (09:25→17:30)
[2022-12-21] MEDS: BENZONATATE 100 MG CAPSULE PO PRN (09:30)
[2022-12-21] MEDS: GUAIFENESIN SUGAR FREE 100 MG/5 ML UDC PO PRN (09:34)
[2022-12-21] MEDS: ASPIRIN 81 MG TAB.CHEW PO SCH (17:30)
[2022-12-21] MEDS: OMEGA-3 FATTY ACIDS/FISH OIL CAPSULE PO SCH (17:31)
[2022-12-21] MEDS: ATORVASTATIN 20 MG TABLET PO SCH (17:31)
[2022-12-21] MEDS: MAGNESIUM OXIDE 400 MG TABLET PO SCH (17:31)
[2022-12-21] MEDS: MULTIVIT, IRON, MIN NO. 8, FA TABLET PO SCH (17:32)
[2022-12-21] MEDS: CHOLECALCIFEROL 1,000 UNIT TABLET PO SCH (17:33)
[2022-12-21] MEDS: LATANOPROST OPHT DROP 2.5 ML BOTTLE EACHEYE SCH (20:58)
[2022-12-22] VITALS (10 sets, daily range): TEMP 98–98.4; O2SAT 97–99
[2022-12-22] MEDS: IPRATROPIUM/ALBUTEROL SULFATE 3 ML AMPUL.NEB NEB SCH ×4 (01:53→19:02)
[2022-12-22] MEDS: LEVOTHYROXINE SODIUM 112 MCG TABLET PO SCH (06:30)
[2022-12-22] MEDS: FOLIC ACID 1 MG TABLET PO SCH (09:00)
[2022-12-22] MEDS: levETIRAcetam 500 MG/5 ML LIQUID UDC PO SCH ×2 (09:00→17:54)
[2022-12-22] MEDS: REMEDY ESSENTIAL ZINC PASTE 113 GM TP SCH ×2 (09:00→20:44)
[2022-12-22] MEDS: BRINZOLAMIDE EACHEYE SCH ×2 (09:00→17:53)
[2022-12-22] MEDS: TOLTERODINE 1 MG TABLET PO SCH ×2 (09:00→17:54)
[2022-12-22] MEDS: FERROUS SULFATE 325 MG TABEC PO SCH (09:00)
[2022-12-22] MEDS: BRIMONIDINE EACHEYE SCH ×2 (09:00→17:53)
[2022-12-22] MEDS: MIRALAX 17 GM POWD.PACK PO SCH ×2 (09:00→17:54)
[2022-12-22] MEDS: HYDROGEN PEROXIDE 3% 118 ML BOTTLE TP SCH ×2 (09:12→19:02)
[2022-12-22] MEDS: VITAMINS A AND D OINT 42 GM TUBE TP SCH ×2 (10:00→20:44)
[2022-12-22] MEDS: ASPIRIN 81 MG TAB.CHEW PO SCH (17:55)
[2022-12-22] MEDS: OMEGA-3 FATTY ACIDS/FISH OIL CAPSULE PO SCH (17:55)
[2022-12-22] MEDS: ATORVASTATIN 20 MG TABLET PO SCH (17:56)
[2022-12-22] MEDS: MAGNESIUM OXIDE 400 MG TABLET PO SCH (17:56)
[2022-12-22] MEDS: MULTIVIT, IRON, MIN NO. 8, FA TABLET PO SCH (17:56)
[2022-12-22] MEDS: CHOLECALCIFEROL 1,000 UNIT TABLET PO SCH (17:56)
[2022-12-22] MEDS: BENZONATATE 100 MG CAPSULE PO PRN (18:00)
[2022-12-22] MEDS: GUAIFENESIN SUGAR FREE 100 MG/5 ML UDC PO PRN (18:00)
[2022-12-22] MEDS: LATANOPROST OPHT DROP 2.5 ML BOTTLE EACHEYE SCH (20:44)
[2022-12-23] VITALS (10 sets, daily range): TEMP 97.9–98.6; O2SAT 97–99
[2022-12-23] MEDS: IPRATROPIUM/ALBUTEROL SULFATE 3 ML AMPUL.NEB NEB SCH ×4 (01:30→19:15)
[2022-12-23] MEDS: LEVOTHYROXINE SODIUM 112 MCG TABLET PO SCH (05:41)
[2022-12-23] MEDS: HYDROGEN PEROXIDE 3% 118 ML BOTTLE TP SCH ×2 (08:20→21:36)
[2022-12-23] MEDS: FOLIC ACID 1 MG TABLET PO SCH (09:23)
[2022-12-23] MEDS: BRINZOLAMIDE EACHEYE SCH ×2 (09:23→17:19)
[2022-12-23] MEDS: FERROUS SULFATE 325 MG TABEC PO SCH (09:23)
[2022-12-23] MEDS: TOLTERODINE 1 MG TABLET PO SCH ×2 (09:23→17:19)
[2022-12-23] MEDS: BRIMONIDINE EACHEYE SCH ×2 (09:23→17:19)
[2022-12-23] MEDS: MIRALAX 17 GM POWD.PACK PO SCH ×2 (09:24→17:20)
[2022-12-23] MEDS: levETIRAcetam 500 MG/5 ML LIQUID UDC PO SCH ×2 (09:24→17:19)
[2022-12-23] MEDS: REMEDY ESSENTIAL ZINC PASTE 113 GM TP SCH ×2 (09:24→21:56)
[2022-12-23] MEDS: VITAMINS A AND D OINT 42 GM TUBE TP SCH ×2 (09:24→21:56)
[2022-12-23] MEDS: GUAIFENESIN SUGAR FREE 100 MG/5 ML UDC PO PRN ×2 (09:25→17:21)
[2022-12-23] MEDS: BENZONATATE 100 MG CAPSULE PO PRN ×2 (09:25→17:21)
[2022-12-23] MEDS: OMEGA-3 FATTY ACIDS/FISH OIL CAPSULE PO SCH (17:20)
[2022-12-23] MEDS: MAGNESIUM OXIDE 400 MG TABLET PO SCH (17:20)
[2022-12-23] MEDS: ATORVASTATIN 20 MG TABLET PO SCH (17:20)
[2022-12-23] MEDS: ASPIRIN 81 MG TAB.CHEW PO SCH (17:20)
[2022-12-23] MEDS: CHOLECALCIFEROL 1,000 UNIT TABLET PO SCH (17:21)
[2022-12-23] MEDS: MULTIVIT, IRON, MIN NO. 8, FA TABLET PO SCH (17:21)
[2022-12-23] MEDS: LATANOPROST OPHT DROP 2.5 ML BOTTLE EACHEYE SCH (21:56)
[2022-12-24] VITALS (10 sets, daily range): TEMP 97.7–98.6; O2SAT 97–99
[2022-12-24] MEDS: IPRATROPIUM/ALBUTEROL SULFATE 3 ML AMPUL.NEB NEB SCH ×4 (00:50→19:15)
[2022-12-24] MEDS: LEVOTHYROXINE SODIUM 112 MCG TABLET PO SCH (05:34)
[2022-12-24] MEDS: HYDROGEN PEROXIDE 3% 118 ML BOTTLE TP SCH ×2 (07:25→19:16)
[2022-12-24] MEDS: BRINZOLAMIDE EACHEYE SCH ×2 (09:08→17:19)
[2022-12-24] MEDS: BRIMONIDINE EACHEYE SCH ×2 (09:08→17:19)
[2022-12-24] MEDS: FERROUS SULFATE 325 MG TABEC PO SCH (09:09)
[2022-12-24] MEDS: TOLTERODINE 1 MG TABLET PO SCH ×2 (09:09→17:19)
[2022-12-24] MEDS: MIRALAX 17 GM POWD.PACK PO SCH ×2 (09:10→17:19)
[2022-12-24] MEDS: levETIRAcetam 500 MG/5 ML LIQUID UDC PO SCH ×2 (09:10→17:19)
[2022-12-24] MEDS: FOLIC ACID 1 MG TABLET PO SCH (09:10)
[2022-12-24] MEDS: REMEDY ESSENTIAL ZINC PASTE 113 GM TP SCH ×2 (09:11→21:03)
[2022-12-24] MEDS: VITAMINS A AND D OINT 42 GM TUBE TP SCH ×2 (09:11→21:03)
[2022-12-24] MEDS: GUAIFENESIN SUGAR FREE 100 MG/5 ML UDC PO PRN (09:22)
[2022-12-24] MEDS: BENZONATATE 100 MG CAPSULE PO PRN (09:22)
[2022-12-24] MEDS: CHOLECALCIFEROL 1,000 UNIT TABLET PO SCH (17:19)
[2022-12-24] MEDS: ATORVASTATIN 20 MG TABLET PO SCH (17:19)
[2022-12-24] MEDS: OMEGA-3 FATTY ACIDS/FISH OIL CAPSULE PO SCH (17:19)
[2022-12-24] MEDS: MULTIVIT, IRON, MIN NO. 8, FA TABLET PO SCH (17:19)
[2022-12-24] MEDS: ASPIRIN 81 MG TAB.CHEW PO SCH (17:19)
[2022-12-24] MEDS: MAGNESIUM OXIDE 400 MG TABLET PO SCH (17:19)
[2022-12-24] MEDS: LATANOPROST OPHT DROP 2.5 ML BOTTLE EACHEYE SCH (21:02)
[2022-12-25] VITALS (10 sets, daily range): TEMP 97–97.5; O2SAT 97–99
[2022-12-25] MEDS: IPRATROPIUM/ALBUTEROL SULFATE 3 ML AMPUL.NEB NEB SCH ×4 (00:45→19:03)
[2022-12-25] MEDS: LEVOTHYROXINE SODIUM 112 MCG TABLET PO SCH (06:13)
[2022-12-25] MEDS: HYDROGEN PEROXIDE 3% 118 ML BOTTLE TP SCH ×2 (08:52→20:56)
[2022-12-25] MEDS: FOLIC ACID 1 MG TABLET PO SCH (09:04)
[2022-12-25] MEDS: levETIRAcetam 500 MG/5 ML LIQUID UDC PO SCH ×2 (09:04→17:23)
[2022-12-25] MEDS: BRINZOLAMIDE EACHEYE SCH ×2 (09:04→17:23)
[2022-12-25] MEDS: TOLTERODINE 1 MG TABLET PO SCH ×2 (09:04→17:23)
[2022-12-25] MEDS: BRIMONIDINE EACHEYE SCH ×2 (09:04→17:23)
[2022-12-25] MEDS: FERROUS SULFATE 325 MG TABEC PO SCH (09:04)
[2022-12-25] MEDS: MIRALAX 17 GM POWD.PACK PO SCH ×2 (09:05→17:23)
[2022-12-25] MEDS: VITAMINS A AND D OINT 42 GM TUBE TP SCH ×2 (09:05→20:53)
[2022-12-25] MEDS: REMEDY ESSENTIAL ZINC PASTE 113 GM TP SCH ×2 (09:05→20:53)
[2022-12-25] MEDS: BENZONATATE 100 MG CAPSULE PO PRN ×2 (11:00→18:07)
[2022-12-25] MEDS: GUAIFENESIN SUGAR FREE 100 MG/5 ML UDC PO PRN ×2 (11:00→18:07)
[2022-12-25] MEDS: ATORVASTATIN 20 MG TABLET PO SCH (17:24)
[2022-12-25] MEDS: MAGNESIUM OXIDE 400 MG TABLET PO SCH (17:24)
[2022-12-25] MEDS: OMEGA-3 FATTY ACIDS/FISH OIL CAPSULE PO SCH (17:24)
[2022-12-25] MEDS: ASPIRIN 81 MG TAB.CHEW PO SCH (17:24)
[2022-12-25] MEDS: CHOLECALCIFEROL 1,000 UNIT TABLET PO SCH (17:24)
[2022-12-25] MEDS: MULTIVIT, IRON, MIN NO. 8, FA TABLET PO SCH (17:24)
[2022-12-25] MEDS: LATANOPROST OPHT DROP 2.5 ML BOTTLE EACHEYE SCH (20:53)
[2022-12-26] VITALS (10 sets, daily range): TEMP 98–98.1; O2SAT 98–99
[2022-12-26] MEDS: IPRATROPIUM/ALBUTEROL SULFATE 3 ML AMPUL.NEB NEB SCH ×4 (01:43→19:14)
[2022-12-26] MEDS: LEVOTHYROXINE SODIUM 112 MCG TABLET PO SCH (06:01)
[2022-12-26] MEDS: HYDROGEN PEROXIDE 3% 118 ML BOTTLE TP SCH ×2 (09:00→19:14)
[2022-12-26] MEDS: BRINZOLAMIDE EACHEYE SCH ×2 (09:47→17:23)
[2022-12-26] MEDS: TOLTERODINE 1 MG TABLET PO SCH ×2 (09:47→17:23)
[2022-12-26] MEDS: BRIMONIDINE EACHEYE SCH ×2 (09:47→17:23)
[2022-12-26] MEDS: levETIRAcetam 500 MG/5 ML LIQUID UDC PO SCH ×2 (09:48→17:24)
[2022-12-26] MEDS: FERROUS SULFATE 325 MG TABEC PO SCH (09:48)
[2022-12-26] MEDS: FOLIC ACID 1 MG TABLET PO SCH (09:48)
[2022-12-26] MEDS: REMEDY ESSENTIAL ZINC PASTE 113 GM TP SCH ×2 (09:49→21:15)
[2022-12-26] MEDS: VITAMINS A AND D OINT 42 GM TUBE TP SCH ×2 (09:49→21:15)
[2022-12-26] MEDS: MIRALAX 17 GM POWD.PACK PO SCH ×2 (09:49→17:00)
[2022-12-26] MEDS: BENZONATATE 100 MG CAPSULE PO PRN ×2 (09:50→18:28)
[2022-12-26] MEDS: GUAIFENESIN SUGAR FREE 100 MG/5 ML UDC PO PRN ×2 (09:50→18:28)
[2022-12-26] MEDS: ASPIRIN 81 MG TAB.CHEW PO SCH (17:24)
[2022-12-26] MEDS: MAGNESIUM OXIDE 400 MG TABLET PO SCH (17:25)
[2022-12-26] MEDS: OMEGA-3 FATTY ACIDS/FISH OIL CAPSULE PO SCH (17:25)
[2022-12-26] MEDS: MULTIVIT, IRON, MIN NO. 8, FA TABLET PO SCH (17:25)
[2022-12-26] MEDS: ATORVASTATIN 20 MG TABLET PO SCH (17:25)
[2022-12-26] MEDS: CHOLECALCIFEROL 1,000 UNIT TABLET PO SCH (17:26)
[2022-12-26] MEDS: LATANOPROST OPHT DROP 2.5 ML BOTTLE EACHEYE SCH (21:15)
[2022-12-27] VITALS (10 sets, daily range): TEMP 97.7–98; O2SAT 97–100
[2022-12-27] MEDS: IPRATROPIUM/ALBUTEROL SULFATE 3 ML AMPUL.NEB NEB SCH ×4 (00:33→19:22)
[2022-12-27] MEDS: LEVOTHYROXINE SODIUM 112 MCG TABLET PO SCH (05:31)
[2022-12-27] MEDS: TOLTERODINE 1 MG TABLET PO SCH ×2 (08:46→17:25)
[2022-12-27] MEDS: BRINZOLAMIDE EACHEYE SCH ×2 (08:46→17:25)
[2022-12-27] MEDS: BRIMONIDINE EACHEYE SCH ×2 (08:46→17:25)
[2022-12-27] MEDS: levETIRAcetam 500 MG/5 ML LIQUID UDC PO SCH ×2 (08:47→17:25)
[2022-12-27] MEDS: FERROUS SULFATE 325 MG TABEC PO SCH (08:47)
[2022-12-27] MEDS: FOLIC ACID 1 MG TABLET PO SCH (08:47)
[2022-12-27] MEDS: BENZONATATE 100 MG CAPSULE PO PRN ×2 (08:48→18:19)
[2022-12-27] MEDS: MIRALAX 17 GM POWD.PACK PO SCH ×2 (08:48→17:26)
[2022-12-27] MEDS: GUAIFENESIN SUGAR FREE 100 MG/5 ML UDC PO PRN ×2 (08:48→18:19)
[2022-12-27] MEDS: VITAMINS A AND D OINT 42 GM TUBE TP SCH ×2 (09:00→21:00)
[2022-12-27] MEDS: REMEDY ESSENTIAL ZINC PASTE 113 GM TP SCH ×2 (09:00→21:00)
[2022-12-27] MEDS: HYDROGEN PEROXIDE 3% 118 ML BOTTLE TP SCH ×2 (09:17→19:23)
[2022-12-27] MEDS: ASPIRIN 81 MG TAB.CHEW PO SCH (17:26)
[2022-12-27] MEDS: OMEGA-3 FATTY ACIDS/FISH OIL CAPSULE PO SCH (17:27)
[2022-12-27] MEDS: MULTIVIT, IRON, MIN NO. 8, FA TABLET PO SCH (17:27)
[2022-12-27] MEDS: MAGNESIUM OXIDE 400 MG TABLET PO SCH (17:27)
[2022-12-27] MEDS: ATORVASTATIN 20 MG TABLET PO SCH (17:27)
[2022-12-27] MEDS: CHOLECALCIFEROL 1,000 UNIT TABLET PO SCH (17:28)
[2022-12-27] MEDS: LATANOPROST OPHT DROP 2.5 ML BOTTLE EACHEYE SCH (21:00)
[2022-12-28] VITALS (10 sets, daily range): TEMP 97.5; O2SAT 98–99
[2022-12-28] MEDS: IPRATROPIUM/ALBUTEROL SULFATE 3 ML AMPUL.NEB NEB SCH ×4 (00:30→19:10)
[2022-12-28] MEDS: LEVOTHYROXINE SODIUM 112 MCG TABLET PO SCH (05:32)
[2022-12-28] MEDS: HYDROGEN PEROXIDE 3% 118 ML BOTTLE TP SCH ×2 (08:37→19:10)
[2022-12-28] MEDS: BRINZOLAMIDE EACHEYE SCH ×2 (08:59→17:58)
[2022-12-28] MEDS: TOLTERODINE 1 MG TABLET PO SCH ×2 (08:59→17:59)
[2022-12-28] MEDS: BRIMONIDINE EACHEYE SCH ×2 (08:59→17:58)
[2022-12-28] MEDS: FOLIC ACID 1 MG TABLET PO SCH (09:00)
[2022-12-28] MEDS: levETIRAcetam 500 MG/5 ML LIQUID UDC PO SCH ×2 (09:00→17:59)
[2022-12-28] MEDS: FERROUS SULFATE 325 MG TABEC PO SCH (09:00)
[2022-12-28] MEDS: GUAIFENESIN SUGAR FREE 100 MG/5 ML UDC PO PRN ×2 (09:01→18:01)
[2022-12-28] MEDS: BENZONATATE 100 MG CAPSULE PO PRN ×2 (09:01→18:01)
[2022-12-28] MEDS: REMEDY ESSENTIAL ZINC PASTE 113 GM TP SCH ×2 (09:01→21:12)
[2022-12-28] MEDS: VITAMINS A AND D OINT 42 GM TUBE TP SCH ×2 (09:01→21:12)
[2022-12-28] MEDS: MIRALAX 17 GM POWD.PACK PO SCH ×2 (09:01→17:00)
[2022-12-28] MEDS: ATORVASTATIN 20 MG TABLET PO SCH (18:00)
[2022-12-28] MEDS: OMEGA-3 FATTY ACIDS/FISH OIL CAPSULE PO SCH (18:00)
[2022-12-28] MEDS: ASPIRIN 81 MG TAB.CHEW PO SCH (18:00)
[2022-12-28] MEDS: MAGNESIUM OXIDE 400 MG TABLET PO SCH (18:00)
[2022-12-28] MEDS: MULTIVIT, IRON, MIN NO. 8, FA TABLET PO SCH (18:00)
[2022-12-28] MEDS: CHOLECALCIFEROL 1,000 UNIT TABLET PO SCH (18:01)
[2022-12-28] MEDS: LATANOPROST OPHT DROP 2.5 ML BOTTLE EACHEYE SCH (21:12)
[2022-12-29] VITALS (10 sets, daily range): TEMP 97.6–98.5; O2SAT 98–99
[2022-12-29] MEDS: IPRATROPIUM/ALBUTEROL SULFATE 3 ML AMPUL.NEB NEB SCH ×4 (00:30→19:10)
[2022-12-29] MEDS: LEVOTHYROXINE SODIUM 112 MCG TABLET PO SCH (05:41)
[2022-12-29] MEDS: HYDROGEN PEROXIDE 3% 118 ML BOTTLE TP SCH ×2 (06:23→19:10)
[2022-12-29] MEDS: BRINZOLAMIDE EACHEYE SCH ×2 (09:31→16:49)
[2022-12-29] MEDS: BRIMONIDINE EACHEYE SCH ×2 (09:31→16:49)
[2022-12-29] MEDS: FERROUS SULFATE 325 MG TABEC PO SCH (09:32)
[2022-12-29] MEDS: TOLTERODINE 1 MG TABLET PO SCH ×2 (09:32→16:49)
[2022-12-29] MEDS: FOLIC ACID 1 MG TABLET PO SCH (09:32)
[2022-12-29] MEDS: levETIRAcetam 500 MG/5 ML LIQUID UDC PO SCH ×2 (09:32→16:49)
[2022-12-29] MEDS: MIRALAX 17 GM POWD.PACK PO SCH ×2 (09:32→16:49)
[2022-12-29] MEDS: REMEDY ESSENTIAL ZINC PASTE 113 GM TP SCH ×2 (09:33→21:26)
[2022-12-29] MEDS: VITAMINS A AND D OINT 42 GM TUBE TP SCH ×2 (09:33→21:26)
[2022-12-29] MEDS: CHOLECALCIFEROL 1,000 UNIT TABLET PO SCH (17:17)
[2022-12-29] MEDS: OMEGA-3 FATTY ACIDS/FISH OIL CAPSULE PO SCH (17:17)
[2022-12-29] MEDS: MAGNESIUM OXIDE 400 MG TABLET PO SCH (17:17)
[2022-12-29] MEDS: ATORVASTATIN 20 MG TABLET PO SCH (17:17)
[2022-12-29] MEDS: MULTIVIT, IRON, MIN NO. 8, FA TABLET PO SCH (17:17)
[2022-12-29] MEDS: ASPIRIN 81 MG TAB.CHEW PO SCH (17:17)
[2022-12-29] MEDS: LATANOPROST OPHT DROP 2.5 ML BOTTLE EACHEYE SCH (21:26)
[2022-12-30] VITALS (10 sets, daily range): TEMP 98.5–98.7; O2SAT 96–99
[2022-12-30] MEDS: IPRATROPIUM/ALBUTEROL SULFATE 3 ML AMPUL.NEB NEB SCH ×4 (00:30→19:20)
[2022-12-30] MEDS: LEVOTHYROXINE SODIUM 112 MCG TABLET PO SCH (05:33)
[2022-12-30] MEDS: HYDROGEN PEROXIDE 3% 118 ML BOTTLE TP SCH ×2 (09:00→19:20)
[2022-12-30] MEDS: BRIMONIDINE EACHEYE SCH ×2 (09:03→17:35)
[2022-12-30] MEDS: BRINZOLAMIDE EACHEYE SCH ×2 (09:03→17:35)
[2022-12-30] MEDS: TOLTERODINE 1 MG TABLET PO SCH ×2 (09:03→17:35)
[2022-12-30] MEDS: FERROUS SULFATE 325 MG TABEC PO SCH (09:03)
[2022-12-30] MEDS: FOLIC ACID 1 MG TABLET PO SCH (09:03)
[2022-12-30] MEDS: levETIRAcetam 500 MG/5 ML LIQUID UDC PO SCH ×2 (09:05→17:35)
[2022-12-30] MEDS: VITAMINS A AND D OINT 42 GM TUBE TP SCH ×2 (09:05→21:18)
[2022-12-30] MEDS: REMEDY ESSENTIAL ZINC PASTE 113 GM TP SCH ×2 (09:05→21:18)
[2022-12-30] MEDS: MIRALAX 17 GM POWD.PACK PO SCH ×2 (09:05→17:35)
[2022-12-30] MEDS: BENZONATATE 100 MG CAPSULE PO PRN ×2 (09:06→17:35)
[2022-12-30] MEDS: GUAIFENESIN SUGAR FREE 100 MG/5 ML UDC PO PRN ×2 (09:06→17:35)
[2022-12-30] MEDS: MULTIVIT, IRON, MIN NO. 8, FA TABLET PO SCH (17:35)
[2022-12-30] MEDS: OMEGA-3 FATTY ACIDS/FISH OIL CAPSULE PO SCH (17:35)
[2022-12-30] MEDS: MAGNESIUM OXIDE 400 MG TABLET PO SCH (17:35)
[2022-12-30] MEDS: ASPIRIN 81 MG TAB.CHEW PO SCH (17:35)
[2022-12-30] MEDS: CHOLECALCIFEROL 1,000 UNIT TABLET PO SCH (17:35)
[2022-12-30] MEDS: ATORVASTATIN 20 MG TABLET PO SCH (17:35)
[2022-12-30] MEDS: LATANOPROST OPHT DROP 2.5 ML BOTTLE EACHEYE SCH (21:18)
[2022-12-31] VITALS (10 sets, daily range): TEMP 98.5–98.6; O2SAT 97–99
[2022-12-31] MEDS: IPRATROPIUM/ALBUTEROL SULFATE 3 ML AMPUL.NEB NEB SCH ×4 (00:33→19:16)
[2022-12-31] MEDS: LEVOTHYROXINE SODIUM 112 MCG TABLET PO SCH (05:52)
[2022-12-31] MEDS: HYDROGEN PEROXIDE 3% 118 ML BOTTLE TP SCH ×2 (07:24→20:24)
[2022-12-31] MEDS: BENZONATATE 100 MG CAPSULE PO PRN ×2 (09:30→17:01)
[2022-12-31] MEDS: GUAIFENESIN SUGAR FREE 100 MG/5 ML UDC PO PRN ×2 (09:30→17:01)
[2022-12-31] MEDS: FERROUS SULFATE 325 MG TABEC PO SCH (09:44)
[2022-12-31] MEDS: BRIMONIDINE EACHEYE SCH ×2 (09:44→17:00)
[2022-12-31] MEDS: TOLTERODINE 1 MG TABLET PO SCH ×2 (09:44→17:00)
[2022-12-31] MEDS: BRINZOLAMIDE EACHEYE SCH ×2 (09:44→17:00)
[2022-12-31] MEDS: MIRALAX 17 GM POWD.PACK PO SCH ×2 (09:45→17:00)
[2022-12-31] MEDS: REMEDY ESSENTIAL ZINC PASTE 113 GM TP SCH ×2 (09:45→20:26)
[2022-12-31] MEDS: FOLIC ACID 1 MG TABLET PO SCH (09:45)
[2022-12-31] MEDS: VITAMINS A AND D OINT 42 GM TUBE TP SCH ×2 (09:45→20:26)
[2022-12-31] MEDS: levETIRAcetam 500 MG/5 ML LIQUID UDC PO SCH ×2 (09:45→17:00)
[2022-12-31] MEDS: ATORVASTATIN 20 MG TABLET PO SCH (17:00)
[2022-12-31] MEDS: ASPIRIN 81 MG TAB.CHEW PO SCH (17:00)
[2022-12-31] MEDS: MULTIVIT, IRON, MIN NO. 8, FA TABLET PO SCH (17:00)
[2022-12-31] MEDS: MAGNESIUM OXIDE 400 MG TABLET PO SCH (17:00)
[2022-12-31] MEDS: CHOLECALCIFEROL 1,000 UNIT TABLET PO SCH (17:00)
[2022-12-31] MEDS: OMEGA-3 FATTY ACIDS/FISH OIL CAPSULE PO SCH (17:00)
[2022-12-31] MEDS: LATANOPROST OPHT DROP 2.5 ML BOTTLE EACHEYE SCH (20:25)
[2023-01-01] VITALS (9 sets, daily range): TEMP 97.8; O2SAT 96–99
[2023-01-01] MEDS: IPRATROPIUM/ALBUTEROL SULFATE 3 ML AMPUL.NEB NEB SCH ×4 (00:40→19:11)
[2023-01-01] MEDS: LEVOTHYROXINE SODIUM 112 MCG TABLET PO SCH (05:55)
[2023-01-01] MEDS: HYDROGEN PEROXIDE 3% 118 ML BOTTLE TP SCH ×2 (08:10→21:31)
[2023-01-01] MEDS: VITAMINS A AND D OINT 42 GM TUBE TP SCH ×2 (08:24→21:24)
[2023-01-01] MEDS: BENZONATATE 100 MG CAPSULE PO PRN ×2 (08:24→17:01)
[2023-01-01] MEDS: MIRALAX 17 GM POWD.PACK PO SCH ×2 (08:24→17:01)
[2023-01-01] MEDS: BRINZOLAMIDE EACHEYE SCH ×2 (08:24→17:01)
[2023-01-01] MEDS: TOLTERODINE 1 MG TABLET PO SCH ×2 (08:24→17:01)
[2023-01-01] MEDS: GUAIFENESIN SUGAR FREE 100 MG/5 ML UDC PO PRN ×2 (08:24→17:01)
[2023-01-01] MEDS: REMEDY ESSENTIAL ZINC PASTE 113 GM TP SCH ×2 (08:24→21:24)
[2023-01-01] MEDS: FERROUS SULFATE 325 MG TABEC PO SCH (08:24)
[2023-01-01] MEDS: levETIRAcetam 500 MG/5 ML LIQUID UDC PO SCH ×2 (08:24→17:01)
[2023-01-01] MEDS: FOLIC ACID 1 MG TABLET PO SCH (08:24)
[2023-01-01] MEDS: BRIMONIDINE EACHEYE SCH ×2 (08:24→17:01)
[2023-01-01] MEDS: ASPIRIN 81 MG TAB.CHEW PO SCH (17:01)
[2023-01-01] MEDS: OMEGA-3 FATTY ACIDS/FISH OIL CAPSULE PO SCH (17:01)
[2023-01-01] MEDS: MAGNESIUM OXIDE 400 MG TABLET PO SCH (17:01)
[2023-01-01] MEDS: CHOLECALCIFEROL 1,000 UNIT TABLET PO SCH (17:01)
[2023-01-01] MEDS: ATORVASTATIN 20 MG TABLET PO SCH (17:01)
[2023-01-01] MEDS: MULTIVIT, IRON, MIN NO. 8, FA TABLET PO SCH (17:01)
[2023-01-01] MEDS: LATANOPROST OPHT DROP 2.5 ML BOTTLE EACHEYE SCH (21:24)
[2023-01-02] VITALS (10 sets, daily range): TEMP 97.8–98.7; O2SAT 97–99
[2023-01-02] MEDS: IPRATROPIUM/ALBUTEROL SULFATE 3 ML AMPUL.NEB NEB SCH ×4 (01:51→19:09)
[2023-01-02] MEDS: LEVOTHYROXINE SODIUM 112 MCG TABLET PO SCH (05:55)
[2023-01-02 07:32] LABS: BASOPHILS % (AUTO) 0.5 % (0.0-2.0); EOSINOPHILS # (AUTO) 0.1 K/uL (0.0-0.7); EOSINOPHILS % (AUTO) 1.7 % (0.0-7.0); HEMATOCRIT 33.5 % (31.2-41.9); HEMOGLOBIN 11.2 g/dL (10.9-14.3); LYMPHOCYTES # (AUTO) 1.9 K/uL (0.8-4.8); LYMPHOCYTES % (AUTO) 31.3 % (20.5-51.5); MEAN CORPUSCULAR HEMOGLOBIN 29.7 uug (24.7-32.8); MEAN CORPUSCULAR HGB CONC 33 g/dL (32.3-35.6); MEAN CORPUSCULAR VOLUME 88.9 fL (75.5-95.3); MONOCYTES # (AUTO) 0.7 K/uL (0.1-1.30); MONOCYTES % (AUTO) 11.3 % (0.0-11.0); NEUTROPHILS # (AUTO) 3.4 K/uL (1.8-8.9); NEUTROPHILS % (AUTO) 55.2 % (38.5-71.5); PLATELET COUNT (AUTO) 195 K/uL (179-408); RED BLOOD CELL COUNT(AUTO) 3.77 MIL/uL (3.63-4.92); RED CELL DISTRIBUTION WIDTH 15.2 % (12.3-17.7); WHITE BLOOD COUNT (AUTO) 6.2 K/uL (3.8-11.8)
[2023-01-02 07:50] LABS: DIFFERENTIAL COMMENT 1
[2023-01-02 08:11] LABS: CALCIUM 8.5 mg/dL (8.5-10.1); CREATININE 0.7 mg/dL (0.6-1.3); MAGNESIUM 1.8 mg/dL (1.8-2.4); PHOSPHOROUS 4.2 mg/dL (2.5-4.9)
[2023-01-02] MEDS: BRINZOLAMIDE EACHEYE SCH ×2 (08:43→16:48)
[2023-01-02] MEDS: BRIMONIDINE EACHEYE SCH ×2 (08:43→16:48)
[2023-01-02] MEDS: levETIRAcetam 500 MG/5 ML LIQUID UDC PO SCH ×2 (08:44→16:49)
[2023-01-02] MEDS: TOLTERODINE 1 MG TABLET PO SCH ×2 (08:44→16:49)
[2023-01-02] MEDS: FOLIC ACID 1 MG TABLET PO SCH (08:44)
[2023-01-02] MEDS: FERROUS SULFATE 325 MG TABEC PO SCH (08:44)
[2023-01-02] MEDS: REMEDY ESSENTIAL ZINC PASTE 113 GM TP SCH ×2 (08:47→20:18)
[2023-01-02] MEDS: VITAMINS A AND D OINT 42 GM TUBE TP SCH ×2 (08:47→20:19)
[2023-01-02] MEDS: MIRALAX 17 GM POWD.PACK PO SCH ×2 (08:47→16:50)
[2023-01-02] MEDS: BENZONATATE 100 MG CAPSULE PO PRN (08:48)
[2023-01-02] MEDS: HYDROGEN PEROXIDE 3% 118 ML BOTTLE TP SCH ×2 (09:00→19:09)
[2023-01-02] MEDS: ASPIRIN 81 MG TAB.CHEW PO SCH (17:16)
[2023-01-02] MEDS: MAGNESIUM OXIDE 400 MG TABLET PO SCH (17:16)
[2023-01-02] MEDS: OMEGA-3 FATTY ACIDS/FISH OIL CAPSULE PO SCH (17:16)
[2023-01-02] MEDS: ATORVASTATIN 20 MG TABLET PO SCH (17:16)
[2023-01-02] MEDS: MULTIVIT, IRON, MIN NO. 8, FA TABLET PO SCH (17:16)
[2023-01-02] MEDS: CHOLECALCIFEROL 1,000 UNIT TABLET PO SCH (17:16)
[2023-01-02] MEDS: LATANOPROST OPHT DROP 2.5 ML BOTTLE EACHEYE SCH (20:18)
[2023-01-03] VITALS (10 sets, daily range): TEMP 97.7–98; O2SAT 97–99
[2023-01-03] MEDS: IPRATROPIUM/ALBUTEROL SULFATE 3 ML AMPUL.NEB NEB SCH ×4 (00:30→19:05)
[2023-01-03] MEDS: LEVOTHYROXINE SODIUM 112 MCG TABLET PO SCH (05:48)
[2023-01-03] MEDS: HYDROGEN PEROXIDE 3% 118 ML BOTTLE TP SCH ×2 (07:15→21:20)
[2023-01-03] MEDS: levETIRAcetam 500 MG/5 ML LIQUID UDC PO SCH ×2 (09:12→16:34)
[2023-01-03] MEDS: FERROUS SULFATE 325 MG TABEC PO SCH (09:12)
[2023-01-03] MEDS: BRIMONIDINE EACHEYE SCH ×2 (09:12→16:33)
[2023-01-03] MEDS: MIRALAX 17 GM POWD.PACK PO SCH ×2 (09:12→16:34)
[2023-01-03] MEDS: FOLIC ACID 1 MG TABLET PO SCH (09:12)
[2023-01-03] MEDS: BRINZOLAMIDE EACHEYE SCH ×2 (09:12→16:33)
[2023-01-03] MEDS: TOLTERODINE 1 MG TABLET PO SCH ×2 (09:12→16:33)
[2023-01-03] MEDS: VITAMINS A AND D OINT 42 GM TUBE TP SCH ×2 (09:13→20:18)
[2023-01-03] MEDS: REMEDY ESSENTIAL ZINC PASTE 113 GM TP SCH ×2 (09:13→20:17)
[2023-01-03] MEDS: BENZONATATE 100 MG CAPSULE PO PRN (09:14)
[2023-01-03] MEDS: GUAIFENESIN SUGAR FREE 100 MG/5 ML UDC PO PRN (16:35)
[2023-01-03] MEDS: OMEGA-3 FATTY ACIDS/FISH OIL CAPSULE PO SCH (17:13)
[2023-01-03] MEDS: CHOLECALCIFEROL 1,000 UNIT TABLET PO SCH (17:13)
[2023-01-03] MEDS: MULTIVIT, IRON, MIN NO. 8, FA TABLET PO SCH (17:13)
[2023-01-03] MEDS: MAGNESIUM OXIDE 400 MG TABLET PO SCH (17:13)
[2023-01-03] MEDS: ASPIRIN 81 MG TAB.CHEW PO SCH (17:13)
[2023-01-03] MEDS: ATORVASTATIN 20 MG TABLET PO SCH (17:13)
[2023-01-03] MEDS: LATANOPROST OPHT DROP 2.5 ML BOTTLE EACHEYE SCH (20:17)
[2023-01-04] VITALS (10 sets, daily range): TEMP 97.7–98.1; O2SAT 96–99
[2023-01-04] MEDS: IPRATROPIUM/ALBUTEROL SULFATE 3 ML AMPUL.NEB NEB SCH ×4 (01:09→19:15)
[2023-01-04] MEDS: LEVOTHYROXINE SODIUM 112 MCG TABLET PO SCH (05:33)
[2023-01-04] MEDS: HYDROGEN PEROXIDE 3% 118 ML BOTTLE TP SCH ×2 (08:22→19:00)
[2023-01-04] MEDS: BRINZOLAMIDE EACHEYE SCH ×2 (09:32→17:00)
[2023-01-04] MEDS: BRIMONIDINE EACHEYE SCH ×2 (09:32→17:00)
[2023-01-04] MEDS: FERROUS SULFATE 325 MG TABEC PO SCH (09:37)
[2023-01-04] MEDS: TOLTERODINE 1 MG TABLET PO SCH ×2 (09:37→17:00)
[2023-01-04] MEDS: FOLIC ACID 1 MG TABLET PO SCH (09:37)
[2023-01-04] MEDS: MIRALAX 17 GM POWD.PACK PO SCH ×2 (09:38→17:00)
[2023-01-04] MEDS: levETIRAcetam 500 MG/5 ML LIQUID UDC PO SCH ×2 (09:38→17:00)
[2023-01-04] MEDS: VITAMINS A AND D OINT 42 GM TUBE TP SCH ×2 (09:39→20:31)
[2023-01-04] MEDS: REMEDY ESSENTIAL ZINC PASTE 113 GM TP SCH ×2 (09:39→20:31)
[2023-01-04] MEDS: GUAIFENESIN SUGAR FREE 100 MG/5 ML UDC PO PRN ×2 (09:39→18:22)
[2023-01-04] MEDS: BENZONATATE 100 MG CAPSULE PO PRN ×2 (09:40→18:23)
[2023-01-04] MEDS: ASPIRIN 81 MG TAB.CHEW PO SCH (18:18)
[2023-01-04] MEDS: MAGNESIUM OXIDE 400 MG TABLET PO SCH (18:19)
[2023-01-04] MEDS: ATORVASTATIN 20 MG TABLET PO SCH (18:19)
[2023-01-04] MEDS: OMEGA-3 FATTY ACIDS/FISH OIL CAPSULE PO SCH (18:19)
[2023-01-04] MEDS: MULTIVIT, IRON, MIN NO. 8, FA TABLET PO SCH (18:19)
[2023-01-04] MEDS: CHOLECALCIFEROL 1,000 UNIT TABLET PO SCH (18:20)
[2023-01-04] MEDS: LATANOPROST OPHT DROP 2.5 ML BOTTLE EACHEYE SCH (20:31)
[2023-01-05] VITALS (10 sets, daily range): TEMP 98.6; O2SAT 98–99
[2023-01-05] MEDS: IPRATROPIUM/ALBUTEROL SULFATE 3 ML AMPUL.NEB NEB SCH ×4 (01:08→19:15)
[2023-01-05] MEDS: LEVOTHYROXINE SODIUM 112 MCG TABLET PO SCH (06:11)
[2023-01-05] MEDS: HYDROGEN PEROXIDE 3% 118 ML BOTTLE TP SCH ×2 (08:27→21:01)
[2023-01-05] MEDS: BRIMONIDINE EACHEYE SCH ×2 (09:16→17:50)
[2023-01-05] MEDS: TOLTERODINE 1 MG TABLET PO SCH ×2 (09:16→17:50)
[2023-01-05] MEDS: BRINZOLAMIDE EACHEYE SCH ×2 (09:16→17:50)
[2023-01-05] MEDS: FERROUS SULFATE 325 MG TABEC PO SCH (09:17)
[2023-01-05] MEDS: FOLIC ACID 1 MG TABLET PO SCH (09:19)
[2023-01-05] MEDS: levETIRAcetam 500 MG/5 ML LIQUID UDC PO SCH ×2 (09:19→17:50)
[2023-01-05] MEDS: MIRALAX 17 GM POWD.PACK PO SCH ×2 (09:19→17:51)
[2023-01-05] MEDS: REMEDY ESSENTIAL ZINC PASTE 113 GM TP SCH ×2 (09:20→20:59)
[2023-01-05] MEDS: VITAMINS A AND D OINT 42 GM TUBE TP SCH ×2 (09:20→20:59)
[2023-01-05] MEDS: BENZONATATE 100 MG CAPSULE PO PRN (09:23)
[2023-01-05] MEDS: GUAIFENESIN SUGAR FREE 100 MG/5 ML UDC PO PRN (09:23)
[2023-01-05] MEDS: ASPIRIN 81 MG TAB.CHEW PO SCH (17:51)
[2023-01-05] MEDS: ATORVASTATIN 20 MG TABLET PO SCH (17:52)
[2023-01-05] MEDS: OMEGA-3 FATTY ACIDS/FISH OIL CAPSULE PO SCH (17:52)
[2023-01-05] MEDS: MAGNESIUM OXIDE 400 MG TABLET PO SCH (17:52)
[2023-01-05] MEDS: MULTIVIT, IRON, MIN NO. 8, FA TABLET PO SCH (17:53)
[2023-01-05] MEDS: CHOLECALCIFEROL 1,000 UNIT TABLET PO SCH (17:53)
[2023-01-05] MEDS: LATANOPROST OPHT DROP 2.5 ML BOTTLE EACHEYE SCH (20:59)
[2023-01-06] VITALS (10 sets, daily range): TEMP 97.7–98.8; O2SAT 98–99
[2023-01-06] MEDS: IPRATROPIUM/ALBUTEROL SULFATE 3 ML AMPUL.NEB NEB SCH ×4 (01:19→19:23)
[2023-01-06] MEDS: LEVOTHYROXINE SODIUM 112 MCG TABLET PO SCH (05:59)
[2023-01-06 07:49] LABS: BASOPHILS % (AUTO) 0.5 % (0.0-2.0); EOSINOPHILS # (AUTO) 0.1 K/uL (0.0-0.7); HEMATOCRIT 29.6 % (31.2-41.9); HEMOGLOBIN 9.7 g/dL (10.9-14.3); LYMPHOCYTES # (AUTO) 1.3 K/uL (0.8-4.8); LYMPHOCYTES % (AUTO) 22.4 % (20.5-51.5); MEAN CORPUSCULAR HEMOGLOBIN 29.5 uug (24.7-32.8); MEAN CORPUSCULAR HGB CONC 33 g/dL (32.3-35.6); MONOCYTES # (AUTO) 0.7 K/uL (0.1-1.30); MONOCYTES % (AUTO) 11.7 % (0.0-11.0); NEUTROPHILS # (AUTO) 3.7 K/uL (1.8-8.9); NEUTROPHILS % (AUTO) 63.4 % (38.5-71.5); PLATELET COUNT (AUTO) 197 K/uL (179-408); RED BLOOD CELL COUNT(AUTO) 3.29 MIL/uL (3.63-4.92); RED CELL DISTRIBUTION WIDTH 14.9 % (12.3-17.7); WHITE BLOOD COUNT (AUTO) 5.9 K/uL (3.8-11.8)
[2023-01-06] MEDS: HYDROGEN PEROXIDE 3% 118 ML BOTTLE TP SCH ×2 (08:03→21:30)
[2023-01-06 08:04] LABS: DIFFERENTIAL COMMENT 1
[2023-01-06 08:06] LABS: CALCIUM 8.3 mg/dL (8.5-10.1); CREATININE 0.7 mg/dL (0.6-1.3); MAGNESIUM 1.8 mg/dL (1.8-2.4); PHOSPHOROUS 4.5 mg/dL (2.5-4.9)
[2023-01-06] MEDS: FERROUS SULFATE 325 MG TABEC PO SCH (09:07)
[2023-01-06] MEDS: MIRALAX 17 GM POWD.PACK PO SCH ×2 (09:07→17:01)
[2023-01-06] MEDS: REMEDY ESSENTIAL ZINC PASTE 113 GM TP SCH ×2 (09:07→21:53)
[2023-01-06] MEDS: BRINZOLAMIDE EACHEYE SCH ×2 (09:07→17:01)
[2023-01-06] MEDS: BRIMONIDINE EACHEYE SCH ×2 (09:07→17:01)
[2023-01-06] MEDS: levETIRAcetam 500 MG/5 ML LIQUID UDC PO SCH ×2 (09:07→17:01)
[2023-01-06] MEDS: FOLIC ACID 1 MG TABLET PO SCH (09:07)
[2023-01-06] MEDS: TOLTERODINE 1 MG TABLET PO SCH ×2 (09:07→17:01)
[2023-01-06] MEDS: BENZONATATE 100 MG CAPSULE PO PRN ×2 (09:08→17:04)
[2023-01-06] MEDS: VITAMINS A AND D OINT 42 GM TUBE TP SCH ×2 (09:08→21:53)
[2023-01-06] MEDS: MAGNESIUM OXIDE 400 MG TABLET PO SCH (17:02)
[2023-01-06] MEDS: ASPIRIN 81 MG TAB.CHEW PO SCH (17:02)
[2023-01-06] MEDS: ATORVASTATIN 20 MG TABLET PO SCH (17:02)
[2023-01-06] MEDS: OMEGA-3 FATTY ACIDS/FISH OIL CAPSULE PO SCH (17:02)
[2023-01-06] MEDS: MULTIVIT, IRON, MIN NO. 8, FA TABLET PO SCH (17:02)
[2023-01-06] MEDS: CHOLECALCIFEROL 1,000 UNIT TABLET PO SCH (17:03)
[2023-01-06] MEDS: GUAIFENESIN SUGAR FREE 100 MG/5 ML UDC PO PRN (17:04)
[2023-01-06] MEDS: LATANOPROST OPHT DROP 2.5 ML BOTTLE EACHEYE SCH (21:53)
[2023-01-07] VITALS (10 sets, daily range): TEMP 98–98.6; O2SAT 98–99
[2023-01-07] MEDS: IPRATROPIUM/ALBUTEROL SULFATE 3 ML AMPUL.NEB NEB SCH ×4 (01:38→19:12)
[2023-01-07] MEDS: LEVOTHYROXINE SODIUM 112 MCG TABLET PO SCH (05:29)
[2023-01-07] MEDS: HYDROGEN PEROXIDE 3% 118 ML BOTTLE TP SCH ×2 (08:06→19:12)
[2023-01-07] MEDS: GUAIFENESIN SUGAR FREE 100 MG/5 ML UDC PO PRN (09:30)
[2023-01-07] MEDS: BENZONATATE 100 MG CAPSULE PO PRN (09:30)
[2023-01-07] MEDS: BRIMONIDINE EACHEYE SCH ×2 (09:37→16:57)
[2023-01-07] MEDS: BRINZOLAMIDE EACHEYE SCH ×2 (09:37→16:57)
[2023-01-07] MEDS: TOLTERODINE 1 MG TABLET PO SCH ×2 (09:39→16:57)
[2023-01-07] MEDS: FERROUS SULFATE 325 MG TABEC PO SCH (09:39)
[2023-01-07] MEDS: FOLIC ACID 1 MG TABLET PO SCH (09:39)
[2023-01-07] MEDS: levETIRAcetam 500 MG/5 ML LIQUID UDC PO SCH ×2 (09:40→16:57)
[2023-01-07] MEDS: REMEDY ESSENTIAL ZINC PASTE 113 GM TP SCH ×2 (09:40→20:43)
[2023-01-07] MEDS: MIRALAX 17 GM POWD.PACK PO SCH ×2 (09:40→16:57)
[2023-01-07] MEDS: VITAMINS A AND D OINT 42 GM TUBE TP SCH ×2 (09:40→20:43)
[2023-01-07] MEDS: MAGNESIUM OXIDE 400 MG TABLET PO SCH (16:57)
[2023-01-07] MEDS: OMEGA-3 FATTY ACIDS/FISH OIL CAPSULE PO SCH (16:57)
[2023-01-07] MEDS: CHOLECALCIFEROL 1,000 UNIT TABLET PO SCH (16:57)
[2023-01-07] MEDS: ATORVASTATIN 20 MG TABLET PO SCH (16:57)
[2023-01-07] MEDS: MULTIVIT, IRON, MIN NO. 8, FA TABLET PO SCH (16:57)
[2023-01-07] MEDS: ASPIRIN 81 MG TAB.CHEW PO SCH (16:57)
[2023-01-07] MEDS: LATANOPROST OPHT DROP 2.5 ML BOTTLE EACHEYE SCH (20:45)
[2023-01-08] VITALS (10 sets, daily range): TEMP 97.6–98.1; O2SAT 98–99
[2023-01-08] MEDS: IPRATROPIUM/ALBUTEROL SULFATE 3 ML AMPUL.NEB NEB SCH ×4 (00:31→19:19)
[2023-01-08] MEDS: LEVOTHYROXINE SODIUM 112 MCG TABLET PO SCH (05:29)
[2023-01-08] MEDS: HYDROGEN PEROXIDE 3% 118 ML BOTTLE TP SCH ×2 (07:25→19:19)
[2023-01-08] MEDS: BRIMONIDINE EACHEYE SCH ×2 (09:42→16:31)
[2023-01-08] MEDS: BRINZOLAMIDE EACHEYE SCH ×2 (09:42→16:31)
[2023-01-08] MEDS: FOLIC ACID 1 MG TABLET PO SCH (09:42)
[2023-01-08] MEDS: TOLTERODINE 1 MG TABLET PO SCH ×2 (09:42→16:31)
[2023-01-08] MEDS: FERROUS SULFATE 325 MG TABEC PO SCH (09:42)
[2023-01-08] MEDS: MIRALAX 17 GM POWD.PACK PO SCH ×2 (09:43→16:31)
[2023-01-08] MEDS: levETIRAcetam 500 MG/5 ML LIQUID UDC PO SCH ×2 (09:43→16:31)
[2023-01-08] MEDS: REMEDY ESSENTIAL ZINC PASTE 113 GM TP SCH ×2 (09:44→21:26)
[2023-01-08] MEDS: VITAMINS A AND D OINT 42 GM TUBE TP SCH ×2 (09:44→21:26)
[2023-01-08] MEDS: ASPIRIN 81 MG TAB.CHEW PO SCH (17:01)
[2023-01-08] MEDS: OMEGA-3 FATTY ACIDS/FISH OIL CAPSULE PO SCH (17:02)
[2023-01-08] MEDS: MAGNESIUM OXIDE 400 MG TABLET PO SCH (17:02)
[2023-01-08] MEDS: MULTIVIT, IRON, MIN NO. 8, FA TABLET PO SCH (17:02)
[2023-01-08] MEDS: ATORVASTATIN 20 MG TABLET PO SCH (17:02)
[2023-01-08] MEDS: CHOLECALCIFEROL 1,000 UNIT TABLET PO SCH (17:02)
[2023-01-08] MEDS: LATANOPROST OPHT DROP 2.5 ML BOTTLE EACHEYE SCH (20:54)
[2023-01-09] VITALS (11 sets, daily range): TEMP 97.6–98.2; O2SAT 98–99
[2023-01-09] MEDS: IPRATROPIUM/ALBUTEROL SULFATE 3 ML AMPUL.NEB NEB SCH ×4 (01:56→19:19)
[2023-01-09] MEDS: LEVOTHYROXINE SODIUM 112 MCG TABLET PO SCH (06:03)
[2023-01-09] MEDS: HYDROGEN PEROXIDE 3% 118 ML BOTTLE TP SCH ×2 (07:30→20:50)
[2023-01-09] MEDS: BRINZOLAMIDE EACHEYE SCH ×2 (09:32→16:43)
[2023-01-09] MEDS: BRIMONIDINE EACHEYE SCH ×2 (09:32→16:43)
[2023-01-09] MEDS: levETIRAcetam 500 MG/5 ML LIQUID UDC PO SCH ×2 (09:34→16:45)
[2023-01-09] MEDS: TOLTERODINE 1 MG TABLET PO SCH ×2 (09:34→16:45)
[2023-01-09] MEDS: FERROUS SULFATE 325 MG TABEC PO SCH (09:34)
[2023-01-09] MEDS: FOLIC ACID 1 MG TABLET PO SCH (09:34)
[2023-01-09] MEDS: MIRALAX 17 GM POWD.PACK PO SCH ×2 (09:35→16:45)
[2023-01-09] MEDS: REMEDY ESSENTIAL ZINC PASTE 113 GM TP SCH ×2 (09:36→20:34)
[2023-01-09] MEDS: VITAMINS A AND D OINT 42 GM TUBE TP SCH ×2 (09:36→20:34)
[2023-01-09] MEDS: BENZONATATE 100 MG CAPSULE PO PRN ×2 (10:02→17:25)
[2023-01-09] MEDS: ATORVASTATIN 20 MG TABLET PO SCH (17:25)
[2023-01-09] MEDS: MAGNESIUM OXIDE 400 MG TABLET PO SCH (17:25)
[2023-01-09] MEDS: MULTIVIT, IRON, MIN NO. 8, FA TABLET PO SCH (17:25)
[2023-01-09] MEDS: CHOLECALCIFEROL 1,000 UNIT TABLET PO SCH (17:25)
[2023-01-09] MEDS: OMEGA-3 FATTY ACIDS/FISH OIL CAPSULE PO SCH (17:25)
[2023-01-09] MEDS: ASPIRIN 81 MG TAB.CHEW PO SCH (17:25)
[2023-01-09] MEDS: LATANOPROST OPHT DROP 2.5 ML BOTTLE EACHEYE SCH (20:34)
[2023-01-10] VITALS (12 sets, daily range): TEMP 97.6–98; O2SAT 98–99
[2023-01-10] MEDS: IPRATROPIUM/ALBUTEROL SULFATE 3 ML AMPUL.NEB NEB SCH ×4 (00:51→19:16)
[2023-01-10] MEDS: LEVOTHYROXINE SODIUM 112 MCG TABLET PO SCH (05:43)
[2023-01-10] MEDS: HYDROGEN PEROXIDE 3% 118 ML BOTTLE TP SCH ×2 (09:00→19:16)
[2023-01-10] MEDS: BRIMONIDINE EACHEYE SCH ×2 (09:12→17:53)
[2023-01-10] MEDS: FERROUS SULFATE 325 MG TABEC PO SCH (09:12)
[2023-01-10] MEDS: BRINZOLAMIDE EACHEYE SCH ×2 (09:12→17:53)
[2023-01-10] MEDS: TOLTERODINE 1 MG TABLET PO SCH ×2 (09:12→17:53)
[2023-01-10] MEDS: VITAMINS A AND D OINT 42 GM TUBE TP SCH ×2 (09:13→20:52)
[2023-01-10] MEDS: FOLIC ACID 1 MG TABLET PO SCH (09:13)
[2023-01-10] MEDS: levETIRAcetam 500 MG/5 ML LIQUID UDC PO SCH ×2 (09:13→17:53)
[2023-01-10] MEDS: MIRALAX 17 GM POWD.PACK PO SCH ×2 (09:13→17:53)
[2023-01-10] MEDS: REMEDY ESSENTIAL ZINC PASTE 113 GM TP SCH ×2 (09:13→20:51)
[2023-01-10] MEDS: BENZONATATE 100 MG CAPSULE PO PRN (09:13)
[2023-01-10] MEDS: GUAIFENESIN SUGAR FREE 100 MG/5 ML UDC PO PRN (09:13)
[2023-01-10] MEDS: MULTIVIT, IRON, MIN NO. 8, FA TABLET PO SCH (17:53)
[2023-01-10] MEDS: MAGNESIUM OXIDE 400 MG TABLET PO SCH (17:53)
[2023-01-10] MEDS: CHOLECALCIFEROL 1,000 UNIT TABLET PO SCH (17:53)
[2023-01-10] MEDS: ASPIRIN 81 MG TAB.CHEW PO SCH (17:53)
[2023-01-10] MEDS: OMEGA-3 FATTY ACIDS/FISH OIL CAPSULE PO SCH (17:53)
[2023-01-10] MEDS: ATORVASTATIN 20 MG TABLET PO SCH (17:53)
[2023-01-10] MEDS ORDERED: BUDESONIDE 0.5 MG/2 ML NEBU NEB SCH (19:30)
[2023-01-10] MEDS: BUDESONIDE 0.5 MG/2 ML NEBU NEB SCH (19:49)
[2023-01-10] MEDS: LATANOPROST OPHT DROP 2.5 ML BOTTLE EACHEYE SCH (20:51)
[2023-01-11] VITALS (11 sets, daily range): TEMP 97.5–97.8; O2SAT 98–99
[2023-01-11] MEDS: IPRATROPIUM/ALBUTEROL SULFATE 3 ML AMPUL.NEB NEB SCH ×4 (00:30→19:10)
[2023-01-11] MEDS: LEVOTHYROXINE SODIUM 112 MCG TABLET PO SCH (06:01)
[2023-01-11] MEDS: BUDESONIDE 0.5 MG/2 ML NEBU NEB SCH ×2 (08:03→19:46)
[2023-01-11] MEDS: HYDROGEN PEROXIDE 3% 118 ML BOTTLE TP SCH ×3 (09:00→19:46)
[2023-01-11] MEDS: BRINZOLAMIDE EACHEYE SCH ×2 (09:39→17:04)
[2023-01-11] MEDS: levETIRAcetam 500 MG/5 ML LIQUID UDC PO SCH ×2 (09:39→17:04)
[2023-01-11] MEDS: TOLTERODINE 1 MG TABLET PO SCH ×2 (09:39→17:04)
[2023-01-11] MEDS: FERROUS SULFATE 325 MG TABEC PO SCH (09:39)
[2023-01-11] MEDS: MIRALAX 17 GM POWD.PACK PO SCH ×2 (09:39→17:04)
[2023-01-11] MEDS: BRIMONIDINE EACHEYE SCH ×2 (09:39→17:04)
[2023-01-11] MEDS: FOLIC ACID 1 MG TABLET PO SCH (09:39)
[2023-01-11] MEDS: REMEDY ESSENTIAL ZINC PASTE 113 GM TP SCH ×2 (09:40→21:21)
[2023-01-11] MEDS: GUAIFENESIN SUGAR FREE 100 MG/5 ML UDC PO PRN ×2 (09:40→17:06)
[2023-01-11] MEDS: BENZONATATE 100 MG CAPSULE PO PRN ×2 (09:40→17:06)
[2023-01-11] MEDS: VITAMINS A AND D OINT 42 GM TUBE TP SCH ×2 (09:40→21:22)
[2023-01-11] MEDS: ASPIRIN 81 MG TAB.CHEW PO SCH (17:04)
[2023-01-11] MEDS: MAGNESIUM OXIDE 400 MG TABLET PO SCH (17:05)
[2023-01-11] MEDS: ATORVASTATIN 20 MG TABLET PO SCH (17:05)
[2023-01-11] MEDS: OMEGA-3 FATTY ACIDS/FISH OIL CAPSULE PO SCH (17:05)
[2023-01-11] MEDS: CHOLECALCIFEROL 1,000 UNIT TABLET PO SCH (17:06)
[2023-01-11] MEDS: MULTIVIT, IRON, MIN NO. 8, FA TABLET PO SCH (17:06)
[2023-01-11] MEDS: LATANOPROST OPHT DROP 2.5 ML BOTTLE EACHEYE SCH (21:21)
[2023-01-12] VITALS (10 sets, daily range): TEMP 97.9–98.4; O2SAT 98–99
[2023-01-12] MEDS: IPRATROPIUM/ALBUTEROL SULFATE 3 ML AMPUL.NEB NEB SCH ×4 (00:31→19:10)
[2023-01-12] MEDS: LEVOTHYROXINE SODIUM 112 MCG TABLET PO SCH (05:52)
[2023-01-12] MEDS: BUDESONIDE 0.5 MG/2 ML NEBU NEB SCH ×2 (07:55→19:51)
[2023-01-12] MEDS: BRINZOLAMIDE EACHEYE SCH ×2 (09:27→16:31)
[2023-01-12] MEDS: BRIMONIDINE EACHEYE SCH ×2 (09:27→16:31)
[2023-01-12] MEDS: TOLTERODINE 1 MG TABLET PO SCH ×2 (09:27→16:31)
[2023-01-12] MEDS: FOLIC ACID 1 MG TABLET PO SCH (09:28)
[2023-01-12] MEDS: MIRALAX 17 GM POWD.PACK PO SCH ×2 (09:28→16:32)
[2023-01-12] MEDS: levETIRAcetam 500 MG/5 ML LIQUID UDC PO SCH ×2 (09:28→16:32)
[2023-01-12] MEDS: FERROUS SULFATE 325 MG TABEC PO SCH (09:28)
[2023-01-12] MEDS: VITAMINS A AND D OINT 42 GM TUBE TP SCH ×2 (09:29→21:09)
[2023-01-12] MEDS: REMEDY ESSENTIAL ZINC PASTE 113 GM TP SCH ×2 (09:29→21:09)
[2023-01-12] MEDS: GUAIFENESIN SUGAR FREE 100 MG/5 ML UDC PO PRN (09:30)
[2023-01-12] MEDS: BENZONATATE 100 MG CAPSULE PO PRN (09:30)
[2023-01-12] MEDS: OMEGA-3 FATTY ACIDS/FISH OIL CAPSULE PO SCH (17:21)
[2023-01-12] MEDS: MULTIVIT, IRON, MIN NO. 8, FA TABLET PO SCH (17:21)
[2023-01-12] MEDS: CHOLECALCIFEROL 1,000 UNIT TABLET PO SCH (17:21)
[2023-01-12] MEDS: ASPIRIN 81 MG TAB.CHEW PO SCH (17:21)
[2023-01-12] MEDS: ATORVASTATIN 20 MG TABLET PO SCH (17:21)
[2023-01-12] MEDS: MAGNESIUM OXIDE 400 MG TABLET PO SCH (17:21)
[2023-01-12] MEDS: HYDROGEN PEROXIDE 3% 118 ML BOTTLE TP SCH (19:10)
[2023-01-12] MEDS: LATANOPROST OPHT DROP 2.5 ML BOTTLE EACHEYE SCH (21:08)
[2023-01-13] VITALS (10 sets, daily range): TEMP 98.6–98.8; O2SAT 98–99
[2023-01-13] MEDS: IPRATROPIUM/ALBUTEROL SULFATE 3 ML AMPUL.NEB NEB SCH ×4 (00:30→19:03)
[2023-01-13] MEDS: LEVOTHYROXINE SODIUM 112 MCG TABLET PO SCH (06:38)
[2023-01-13] MEDS: BUDESONIDE 0.5 MG/2 ML NEBU NEB SCH ×2 (08:30→19:30)
[2023-01-13] MEDS: TOLTERODINE 1 MG TABLET PO SCH ×2 (08:44→16:29)
[2023-01-13] MEDS: BRINZOLAMIDE EACHEYE SCH ×2 (08:44→16:29)
[2023-01-13] MEDS: BRIMONIDINE EACHEYE SCH ×2 (08:44→16:29)
[2023-01-13] MEDS: FERROUS SULFATE 325 MG TABEC PO SCH (08:45)
[2023-01-13] MEDS: levETIRAcetam 500 MG/5 ML LIQUID UDC PO SCH ×2 (08:45→16:29)
[2023-01-13] MEDS: FOLIC ACID 1 MG TABLET PO SCH (08:45)
[2023-01-13] MEDS: GUAIFENESIN SUGAR FREE 100 MG/5 ML UDC PO PRN (08:46)
[2023-01-13] MEDS: REMEDY ESSENTIAL ZINC PASTE 113 GM TP SCH ×2 (08:46→21:01)
[2023-01-13] MEDS: BENZONATATE 100 MG CAPSULE PO PRN (08:46)
[2023-01-13] MEDS: MIRALAX 17 GM POWD.PACK PO SCH ×2 (08:46→16:29)
[2023-01-13] MEDS: VITAMINS A AND D OINT 42 GM TUBE TP SCH ×2 (08:46→21:01)
[2023-01-13] MEDS: HYDROGEN PEROXIDE 3% 118 ML BOTTLE TP SCH ×2 (09:13→20:57)
[2023-01-13] MEDS: OMEGA-3 FATTY ACIDS/FISH OIL CAPSULE PO SCH (17:02)
[2023-01-13] MEDS: CHOLECALCIFEROL 1,000 UNIT TABLET PO SCH (17:02)
[2023-01-13] MEDS: MAGNESIUM OXIDE 400 MG TABLET PO SCH (17:02)
[2023-01-13] MEDS: MULTIVIT, IRON, MIN NO. 8, FA TABLET PO SCH (17:02)
[2023-01-13] MEDS: ASPIRIN 81 MG TAB.CHEW PO SCH (17:02)
[2023-01-13] MEDS: ATORVASTATIN 20 MG TABLET PO SCH (17:02)
[2023-01-13] MEDS: LATANOPROST OPHT DROP 2.5 ML BOTTLE EACHEYE SCH (21:01)
[2023-01-14] VITALS (10 sets, daily range): TEMP 98–98.4; O2SAT 97–99
[2023-01-14] MEDS: IPRATROPIUM/ALBUTEROL SULFATE 3 ML AMPUL.NEB NEB SCH ×4 (01:29→19:07)
[2023-01-14] MEDS: BUDESONIDE 0.5 MG/2 ML NEBU NEB SCH ×2 (01:33→19:07)
[2023-01-14] MEDS: LEVOTHYROXINE SODIUM 112 MCG TABLET PO SCH (05:32)
[2023-01-14] MEDS: HYDROGEN PEROXIDE 3% 118 ML BOTTLE TP SCH ×2 (08:15→19:19)
[2023-01-14] MEDS: TOLTERODINE 1 MG TABLET PO SCH ×2 (08:50→17:06)
[2023-01-14] MEDS: BRIMONIDINE EACHEYE SCH ×2 (08:50→17:06)
[2023-01-14] MEDS: FERROUS SULFATE 325 MG TABEC PO SCH (08:50)
[2023-01-14] MEDS: BRINZOLAMIDE EACHEYE SCH ×2 (08:50→17:06)
[2023-01-14] MEDS: levETIRAcetam 500 MG/5 ML LIQUID UDC PO SCH ×2 (08:51→17:06)
[2023-01-14] MEDS: FOLIC ACID 1 MG TABLET PO SCH (08:51)
[2023-01-14] MEDS: MIRALAX 17 GM POWD.PACK PO SCH ×2 (08:51→17:06)
[2023-01-14] MEDS: VITAMINS A AND D OINT 42 GM TUBE TP SCH ×2 (08:52→20:26)
[2023-01-14] MEDS: REMEDY ESSENTIAL ZINC PASTE 113 GM TP SCH ×2 (08:52→20:25)
[2023-01-14] MEDS: GUAIFENESIN SUGAR FREE 100 MG/5 ML UDC PO PRN ×2 (09:00→17:07)
[2023-01-14] MEDS: BENZONATATE 100 MG CAPSULE PO PRN ×2 (09:00→17:07)
[2023-01-14] MEDS: ASPIRIN 81 MG TAB.CHEW PO SCH (17:06)
[2023-01-14] MEDS: OMEGA-3 FATTY ACIDS/FISH OIL CAPSULE PO SCH (17:06)
[2023-01-14] MEDS: MAGNESIUM OXIDE 400 MG TABLET PO SCH (17:07)
[2023-01-14] MEDS: ATORVASTATIN 20 MG TABLET PO SCH (17:07)
[2023-01-14] MEDS: CHOLECALCIFEROL 1,000 UNIT TABLET PO SCH (17:07)
[2023-01-14] MEDS: MULTIVIT, IRON, MIN NO. 8, FA TABLET PO SCH (17:07)
[2023-01-14] MEDS: LATANOPROST OPHT DROP 2.5 ML BOTTLE EACHEYE SCH (20:25)
[2023-01-15] VITALS (11 sets, daily range): TEMP 98.2–98.5; O2SAT 97–99
[2023-01-15] MEDS: IPRATROPIUM/ALBUTEROL SULFATE 3 ML AMPUL.NEB NEB SCH ×4 (00:49→19:10)
[2023-01-15] MEDS: LEVOTHYROXINE SODIUM 112 MCG TABLET PO SCH (05:35)
[2023-01-15] MEDS: BUDESONIDE 0.5 MG/2 ML NEBU NEB SCH ×2 (07:34→19:48)
[2023-01-15] MEDS: HYDROGEN PEROXIDE 3% 118 ML BOTTLE TP SCH ×2 (08:14→19:10)
[2023-01-15] MEDS: BRIMONIDINE EACHEYE SCH ×2 (08:39→17:00)
[2023-01-15] MEDS: BRINZOLAMIDE EACHEYE SCH ×2 (08:39→17:00)
[2023-01-15] MEDS: FERROUS SULFATE 325 MG TABEC PO SCH (08:40)
[2023-01-15] MEDS: FOLIC ACID 1 MG TABLET PO SCH (08:40)
[2023-01-15] MEDS: TOLTERODINE 1 MG TABLET PO SCH ×2 (08:40→17:00)
[2023-01-15] MEDS: VITAMINS A AND D OINT 42 GM TUBE TP SCH ×2 (08:41→20:52)
[2023-01-15] MEDS: MIRALAX 17 GM POWD.PACK PO SCH ×2 (08:41→17:00)
[2023-01-15] MEDS: levETIRAcetam 500 MG/5 ML LIQUID UDC PO SCH ×2 (08:41→17:00)
[2023-01-15] MEDS: REMEDY ESSENTIAL ZINC PASTE 113 GM TP SCH ×2 (08:41→20:52)
[2023-01-15] MEDS: GUAIFENESIN SUGAR FREE 100 MG/5 ML UDC PO PRN (08:42)
[2023-01-15] MEDS: BENZONATATE 100 MG CAPSULE PO PRN (08:42)
[2023-01-15] MEDS: OMEGA-3 FATTY ACIDS/FISH OIL CAPSULE PO SCH (18:33)
[2023-01-15] MEDS: MAGNESIUM OXIDE 400 MG TABLET PO SCH (18:33)
[2023-01-15] MEDS: MULTIVIT, IRON, MIN NO. 8, FA TABLET PO SCH (18:33)
[2023-01-15] MEDS: CHOLECALCIFEROL 1,000 UNIT TABLET PO SCH (18:33)
[2023-01-15] MEDS: ATORVASTATIN 20 MG TABLET PO SCH (18:33)
[2023-01-15] MEDS: ASPIRIN 81 MG TAB.CHEW PO SCH (18:33)
[2023-01-15] MEDS: LATANOPROST OPHT DROP 2.5 ML BOTTLE EACHEYE SCH (20:52)
[2023-01-16] VITALS (12 sets, daily range): TEMP 98.2–98.3; O2SAT 97–99
[2023-01-16] MEDS: IPRATROPIUM/ALBUTEROL SULFATE 3 ML AMPUL.NEB NEB SCH ×4 (00:30→19:15)
[2023-01-16] MEDS: LEVOTHYROXINE SODIUM 112 MCG TABLET PO SCH (06:05)
[2023-01-16] MEDS: HYDROGEN PEROXIDE 3% 118 ML BOTTLE TP SCH ×2 (07:10→19:15)
[2023-01-16] MEDS: BUDESONIDE 0.5 MG/2 ML NEBU NEB SCH ×2 (07:10→19:53)
[2023-01-16] MEDS: BRIMONIDINE EACHEYE SCH ×2 (09:33→17:13)
[2023-01-16] MEDS: BRINZOLAMIDE EACHEYE SCH ×2 (09:33→17:13)
[2023-01-16] MEDS: TOLTERODINE 1 MG TABLET PO SCH ×2 (09:33→17:13)
[2023-01-16] MEDS: MIRALAX 17 GM POWD.PACK PO SCH ×2 (09:34→17:14)
[2023-01-16] MEDS: FOLIC ACID 1 MG TABLET PO SCH (09:34)
[2023-01-16] MEDS: levETIRAcetam 500 MG/5 ML LIQUID UDC PO SCH ×2 (09:34→17:13)
[2023-01-16] MEDS: FERROUS SULFATE 325 MG TABEC PO SCH (09:34)
[2023-01-16] MEDS: REMEDY ESSENTIAL ZINC PASTE 113 GM TP SCH ×2 (09:35→20:52)
[2023-01-16] MEDS: VITAMINS A AND D OINT 42 GM TUBE TP SCH ×2 (09:36→20:52)
[2023-01-16] MEDS: BENZONATATE 100 MG CAPSULE PO PRN ×2 (09:41→17:19)
[2023-01-16] MEDS: GUAIFENESIN SUGAR FREE 100 MG/5 ML UDC PO PRN ×2 (09:41→17:18)
[2023-01-16] MEDS: ASPIRIN 81 MG TAB.CHEW PO SCH (17:14)
[2023-01-16] MEDS: ATORVASTATIN 20 MG TABLET PO SCH (17:14)
[2023-01-16] MEDS: OMEGA-3 FATTY ACIDS/FISH OIL CAPSULE PO SCH (17:14)
[2023-01-16] MEDS: MAGNESIUM OXIDE 400 MG TABLET PO SCH (17:15)
[2023-01-16] MEDS: MULTIVIT, IRON, MIN NO. 8, FA TABLET PO SCH (17:15)
[2023-01-16] MEDS: CHOLECALCIFEROL 1,000 UNIT TABLET PO SCH (17:16)
[2023-01-16] MEDS: LATANOPROST OPHT DROP 2.5 ML BOTTLE EACHEYE SCH (20:52)
[2023-01-17] VITALS (10 sets, daily range): TEMP 98; O2SAT 97–99
[2023-01-17] MEDS: IPRATROPIUM/ALBUTEROL SULFATE 3 ML AMPUL.NEB NEB SCH ×4 (00:32→20:09)
[2023-01-17] MEDS: LEVOTHYROXINE SODIUM 112 MCG TABLET PO SCH (05:32)
[2023-01-17] MEDS: BUDESONIDE 0.5 MG/2 ML NEBU NEB SCH ×2 (07:38→20:09)
[2023-01-17] MEDS: HYDROGEN PEROXIDE 3% 118 ML BOTTLE TP SCH ×2 (09:07→20:17)
[2023-01-17] MEDS: FERROUS SULFATE 325 MG TABEC PO SCH (09:31)
[2023-01-17] MEDS: TOLTERODINE 1 MG TABLET PO SCH ×2 (09:31→17:52)
[2023-01-17] MEDS: BRINZOLAMIDE EACHEYE SCH ×2 (09:31→17:52)
[2023-01-17] MEDS: BRIMONIDINE EACHEYE SCH ×2 (09:31→17:52)
[2023-01-17] MEDS: MIRALAX 17 GM POWD.PACK PO SCH ×2 (09:32→17:52)
[2023-01-17] MEDS: FOLIC ACID 1 MG TABLET PO SCH (09:32)
[2023-01-17] MEDS: REMEDY ESSENTIAL ZINC PASTE 113 GM TP SCH ×2 (09:32→21:15)
[2023-01-17] MEDS: levETIRAcetam 500 MG/5 ML LIQUID UDC PO SCH ×2 (09:32→17:52)
[2023-01-17] MEDS: VITAMINS A AND D OINT 42 GM TUBE TP SCH ×2 (09:32→21:15)
[2023-01-17] MEDS: BENZONATATE 100 MG CAPSULE PO PRN ×2 (09:35→17:54)
[2023-01-17] MEDS: GUAIFENESIN SUGAR FREE 100 MG/5 ML UDC PO PRN ×2 (09:35→17:54)
[2023-01-17] MEDS: OMEGA-3 FATTY ACIDS/FISH OIL CAPSULE PO SCH (17:53)
[2023-01-17] MEDS: MAGNESIUM OXIDE 400 MG TABLET PO SCH (17:53)
[2023-01-17] MEDS: ASPIRIN 81 MG TAB.CHEW PO SCH (17:53)
[2023-01-17] MEDS: ATORVASTATIN 20 MG TABLET PO SCH (17:53)
[2023-01-17] MEDS: CHOLECALCIFEROL 1,000 UNIT TABLET PO SCH (17:54)
[2023-01-17] MEDS: MULTIVIT, IRON, MIN NO. 8, FA TABLET PO SCH (17:54)
[2023-01-17] MEDS: LATANOPROST OPHT DROP 2.5 ML BOTTLE EACHEYE SCH (21:15)
[2023-01-18] VITALS (10 sets, daily range): TEMP 97.5–98.2; O2SAT 97–99
[2023-01-18] MEDS: IPRATROPIUM/ALBUTEROL SULFATE 3 ML AMPUL.NEB NEB SCH ×4 (01:30→19:30)
[2023-01-18] MEDS: LEVOTHYROXINE SODIUM 112 MCG TABLET PO SCH (05:50)
[2023-01-18] MEDS: BUDESONIDE 0.5 MG/2 ML NEBU NEB SCH ×2 (07:53→19:30)
[2023-01-18] MEDS: HYDROGEN PEROXIDE 3% 118 ML BOTTLE TP SCH ×2 (08:18→20:46)
[2023-01-18] MEDS: TOLTERODINE 1 MG TABLET PO SCH ×2 (09:35→18:00)
[2023-01-18] MEDS: levETIRAcetam 500 MG/5 ML LIQUID UDC PO SCH ×2 (09:35→18:00)
[2023-01-18] MEDS: FERROUS SULFATE 325 MG TABEC PO SCH (09:35)
[2023-01-18] MEDS: BRINZOLAMIDE EACHEYE SCH ×2 (09:35→18:00)
[2023-01-18] MEDS: FOLIC ACID 1 MG TABLET PO SCH (09:35)
[2023-01-18] MEDS: BRIMONIDINE EACHEYE SCH ×2 (09:35→18:00)
[2023-01-18] MEDS: MIRALAX 17 GM POWD.PACK PO SCH ×2 (09:36→18:00)
[2023-01-18] MEDS: REMEDY ESSENTIAL ZINC PASTE 113 GM TP SCH ×2 (09:36→20:52)
[2023-01-18] MEDS: BENZONATATE 100 MG CAPSULE PO PRN ×2 (09:36→18:05)
[2023-01-18] MEDS: GUAIFENESIN SUGAR FREE 100 MG/5 ML UDC PO PRN ×2 (09:36→18:05)
[2023-01-18] MEDS: VITAMINS A AND D OINT 42 GM TUBE TP SCH ×2 (09:36→20:52)
[2023-01-18] MEDS: ATORVASTATIN 20 MG TABLET PO SCH (18:02)
[2023-01-18] MEDS: OMEGA-3 FATTY ACIDS/FISH OIL CAPSULE PO SCH (18:02)
[2023-01-18] MEDS: CHOLECALCIFEROL 1,000 UNIT TABLET PO SCH (18:02)
[2023-01-18] MEDS: ASPIRIN 81 MG TAB.CHEW PO SCH (18:02)
[2023-01-18] MEDS: MULTIVIT, IRON, MIN NO. 8, FA TABLET PO SCH (18:02)
[2023-01-18] MEDS: MAGNESIUM OXIDE 400 MG TABLET PO SCH (18:02)
[2023-01-18] MEDS: LATANOPROST OPHT DROP 2.5 ML BOTTLE EACHEYE SCH (20:52)
[2023-01-19] VITALS (10 sets, daily range): TEMP 98–99.2; O2SAT 98–99
[2023-01-19] MEDS: IPRATROPIUM/ALBUTEROL SULFATE 3 ML AMPUL.NEB NEB SCH ×4 (01:53→19:15)
[2023-01-19] MEDS: LEVOTHYROXINE SODIUM 112 MCG TABLET PO SCH (05:25)
[2023-01-19] MEDS: BUDESONIDE 0.5 MG/2 ML NEBU NEB SCH ×2 (07:34→19:15)
[2023-01-19] MEDS: HYDROGEN PEROXIDE 3% 118 ML BOTTLE TP SCH ×2 (08:24→19:15)
[2023-01-19] MEDS: TOLTERODINE 1 MG TABLET PO SCH ×2 (09:33→17:34)
[2023-01-19] MEDS: MIRALAX 17 GM POWD.PACK PO SCH ×2 (09:33→17:35)
[2023-01-19] MEDS: BRINZOLAMIDE EACHEYE SCH ×2 (09:33→17:34)
[2023-01-19] MEDS: FOLIC ACID 1 MG TABLET PO SCH (09:33)
[2023-01-19] MEDS: levETIRAcetam 500 MG/5 ML LIQUID UDC PO SCH ×2 (09:33→17:34)
[2023-01-19] MEDS: FERROUS SULFATE 325 MG TABEC PO SCH (09:33)
[2023-01-19] MEDS: BRIMONIDINE EACHEYE SCH ×2 (09:33→17:34)
[2023-01-19] MEDS: GUAIFENESIN SUGAR FREE 100 MG/5 ML UDC PO PRN (09:34)
[2023-01-19] MEDS: BENZONATATE 100 MG CAPSULE PO PRN (09:34)
[2023-01-19] MEDS: REMEDY ESSENTIAL ZINC PASTE 113 GM TP SCH ×2 (09:34→21:59)
[2023-01-19] MEDS: VITAMINS A AND D OINT 42 GM TUBE TP SCH ×2 (09:34→21:59)
[2023-01-19] MEDS: MULTIVIT, IRON, MIN NO. 8, FA TABLET PO SCH (17:35)
[2023-01-19] MEDS: OMEGA-3 FATTY ACIDS/FISH OIL CAPSULE PO SCH (17:35)
[2023-01-19] MEDS: ATORVASTATIN 20 MG TABLET PO SCH (17:35)
[2023-01-19] MEDS: ASPIRIN 81 MG TAB.CHEW PO SCH (17:35)
[2023-01-19] MEDS: MAGNESIUM OXIDE 400 MG TABLET PO SCH (17:35)
[2023-01-19] MEDS: CHOLECALCIFEROL 1,000 UNIT TABLET PO SCH (17:35)
[2023-01-19] MEDS: LATANOPROST OPHT DROP 2.5 ML BOTTLE EACHEYE SCH (22:00)
[2023-01-20] VITALS (10 sets, daily range): TEMP 98.8–99; O2SAT 98–99
[2023-01-20] MEDS: IPRATROPIUM/ALBUTEROL SULFATE 3 ML AMPUL.NEB NEB SCH ×4 (00:48→19:15)
[2023-01-20] MEDS: LEVOTHYROXINE SODIUM 112 MCG TABLET PO SCH (05:26)
[2023-01-20] MEDS: HYDROGEN PEROXIDE 3% 118 ML BOTTLE TP SCH ×2 (07:51→19:16)
[2023-01-20] MEDS: BUDESONIDE 0.5 MG/2 ML NEBU NEB SCH ×2 (07:51→19:16)
[2023-01-20] MEDS: VITAMINS A AND D OINT 42 GM TUBE TP SCH ×2 (09:38→21:01)
[2023-01-20] MEDS: FERROUS SULFATE 325 MG TABEC PO SCH (09:38)
[2023-01-20] MEDS: levETIRAcetam 500 MG/5 ML LIQUID UDC PO SCH ×2 (09:38→17:47)
[2023-01-20] MEDS: REMEDY ESSENTIAL ZINC PASTE 113 GM TP SCH ×2 (09:38→21:01)
[2023-01-20] MEDS: FOLIC ACID 1 MG TABLET PO SCH (09:38)
[2023-01-20] MEDS: BRIMONIDINE EACHEYE SCH ×2 (09:38→17:47)
[2023-01-20] MEDS: BRINZOLAMIDE EACHEYE SCH ×2 (09:38→17:47)
[2023-01-20] MEDS: TOLTERODINE 1 MG TABLET PO SCH ×2 (09:38→17:47)
[2023-01-20] MEDS: MIRALAX 17 GM POWD.PACK PO SCH ×2 (09:38→17:47)
[2023-01-20] MEDS: MULTIVIT, IRON, MIN NO. 8, FA TABLET PO SCH (17:47)
[2023-01-20] MEDS: ASPIRIN 81 MG TAB.CHEW PO SCH (17:47)
[2023-01-20] MEDS: ATORVASTATIN 20 MG TABLET PO SCH (17:47)
[2023-01-20] MEDS: MAGNESIUM OXIDE 400 MG TABLET PO SCH (17:47)
[2023-01-20] MEDS: OMEGA-3 FATTY ACIDS/FISH OIL CAPSULE PO SCH (17:47)
[2023-01-20] MEDS: BENZONATATE 100 MG CAPSULE PO PRN (17:48)
[2023-01-20] MEDS: CHOLECALCIFEROL 1,000 UNIT TABLET PO SCH (17:48)
[2023-01-20] MEDS: GUAIFENESIN SUGAR FREE 100 MG/5 ML UDC PO PRN (17:48)
[2023-01-20] MEDS: LATANOPROST OPHT DROP 2.5 ML BOTTLE EACHEYE SCH (20:59)
[2023-01-21] VITALS (12 sets, daily range): TEMP 98.2–98.3; O2SAT 98–99
[2023-01-21] MEDS: IPRATROPIUM/ALBUTEROL SULFATE 3 ML AMPUL.NEB NEB SCH ×4 (01:58→19:12)
[2023-01-21] MEDS: LEVOTHYROXINE SODIUM 112 MCG TABLET PO SCH (06:04)
[2023-01-21] MEDS: HYDROGEN PEROXIDE 3% 118 ML BOTTLE TP SCH ×2 (07:39→19:12)
[2023-01-21] MEDS: BUDESONIDE 0.5 MG/2 ML NEBU NEB SCH ×2 (07:39→19:30)
[2023-01-21] MEDS ORDERED: DORZOLAMIDE/TIMOLOL OPHT DROP 10 ML BOTTLE RIGHTEYE SCH (09:00)
[2023-01-21] MEDS: TOLTERODINE 1 MG TABLET PO SCH ×2 (09:06→17:52)
[2023-01-21] MEDS: FERROUS SULFATE 325 MG TABEC PO SCH (09:07)
[2023-01-21] MEDS: FOLIC ACID 1 MG TABLET PO SCH (09:07)
[2023-01-21] MEDS: levETIRAcetam 500 MG/5 ML LIQUID UDC PO SCH ×2 (09:08→17:52)
[2023-01-21] MEDS: MIRALAX 17 GM POWD.PACK PO SCH ×2 (09:08→17:53)
[2023-01-21] MEDS: REMEDY ESSENTIAL ZINC PASTE 113 GM TP SCH ×2 (09:08→20:47)
[2023-01-21] MEDS: VITAMINS A AND D OINT 42 GM TUBE TP SCH ×2 (09:08→20:48)
[2023-01-21] MEDS: GUAIFENESIN SUGAR FREE 100 MG/5 ML UDC PO PRN ×2 (09:19→17:55)
[2023-01-21] MEDS: BENZONATATE 100 MG CAPSULE PO PRN ×2 (09:19→17:55)
[2023-01-21] MEDS: DORZOLAMIDE/TIMOLOL OPHT DROP 10 ML BOTTLE EACHEYE SCH ×2 (09:22→17:52)
[2023-01-21] MEDS: NEOMY/BACITRA/POLYMYXIN B OINT UD PACKET TP SCH ×2 (12:04→20:47)
[2023-01-21] MEDS: OMEGA-3 FATTY ACIDS/FISH OIL CAPSULE PO SCH (17:53)
[2023-01-21] MEDS: ASPIRIN 81 MG TAB.CHEW PO SCH (17:53)
[2023-01-21] MEDS: MAGNESIUM OXIDE 400 MG TABLET PO SCH (17:54)
[2023-01-21] MEDS: ATORVASTATIN 20 MG TABLET PO SCH (17:54)
[2023-01-21] MEDS: CHOLECALCIFEROL 1,000 UNIT TABLET PO SCH (17:54)
[2023-01-21] MEDS: MULTIVIT, IRON, MIN NO. 8, FA TABLET PO SCH (17:54)
[2023-01-21] MEDS: LATANOPROST OPHT DROP 2.5 ML BOTTLE EACHEYE SCH (20:47)
[2023-01-22] VITALS (10 sets, daily range): TEMP 97.6–97.8; O2SAT 98–99
[2023-01-22] MEDS: IPRATROPIUM/ALBUTEROL SULFATE 3 ML AMPUL.NEB NEB SCH ×4 (00:30→19:09)
[2023-01-22] MEDS: LEVOTHYROXINE SODIUM 112 MCG TABLET PO SCH (06:06)
[2023-01-22 06:37] LABS: BASOPHILS % (AUTO) 0.5 % (0.0-2.0); DIFFERENTIAL COMMENT 0; EOSINOPHILS # (AUTO) 0.1 K/uL (0.0-0.7); EOSINOPHILS % (AUTO) 2.7 % (0.0-7.0); HEMATOCRIT 32.9 % (31.2-41.9); HEMOGLOBIN 10.7 g/dL (10.9-14.3); LYMPHOCYTES # (AUTO) 1.5 K/uL (0.8-4.8); LYMPHOCYTES % (AUTO) 30.4 % (20.5-51.5); MEAN CORPUSCULAR HEMOGLOBIN 29.2 uug (24.7-32.8); MEAN CORPUSCULAR HGB CONC 33 g/dL (32.3-35.6); MEAN CORPUSCULAR VOLUME 89.5 fL (75.5-95.3); MONOCYTES # (AUTO) 0.6 K/uL (0.1-1.30); MONOCYTES % (AUTO) 12.9 % (0.0-11.0); NEUTROPHILS # (AUTO) 2.6 K/uL (1.8-8.9); NEUTROPHILS % (AUTO) 53.5 % (38.5-71.5); PLATELET COUNT (AUTO) 214 K/uL (179-408); RED BLOOD CELL COUNT(AUTO) 3.68 MIL/uL (3.63-4.92); RED CELL DISTRIBUTION WIDTH 15.1 % (12.3-17.7); WHITE BLOOD COUNT (AUTO) 4.8 K/uL (3.8-11.8)
[2023-01-22] MEDS: BUDESONIDE 0.5 MG/2 ML NEBU NEB SCH ×2 (07:17→19:09)
[2023-01-22 07:21] LABS: CALCIUM 8.7 mg/dL (8.5-10.1); CREATININE 0.6 mg/dL (0.6-1.3); POTASSIUM 4.2 mmol/L (3.5-5.1)
[2023-01-22] MEDS: HYDROGEN PEROXIDE 3% 118 ML BOTTLE TP SCH ×2 (09:00→19:09)
[2023-01-22] MEDS: DORZOLAMIDE/TIMOLOL OPHT DROP 10 ML BOTTLE EACHEYE SCH ×2 (09:50→16:33)
[2023-01-22] MEDS: TOLTERODINE 1 MG TABLET PO SCH ×2 (09:51→16:34)
[2023-01-22] MEDS: FERROUS SULFATE 325 MG TABEC PO SCH (09:51)
[2023-01-22] MEDS: FOLIC ACID 1 MG TABLET PO SCH (09:52)
[2023-01-22] MEDS: MIRALAX 17 GM POWD.PACK PO SCH ×2 (09:52→16:35)
[2023-01-22] MEDS: levETIRAcetam 500 MG/5 ML LIQUID UDC PO SCH ×2 (09:52→16:35)
[2023-01-22] MEDS: BENZONATATE 100 MG CAPSULE PO PRN (09:53)
[2023-01-22] MEDS: VITAMINS A AND D OINT 42 GM TUBE TP SCH ×2 (09:53→20:57)
[2023-01-22] MEDS: REMEDY ESSENTIAL ZINC PASTE 113 GM TP SCH ×2 (09:53→20:57)
[2023-01-22] MEDS: NEOMY/BACITRA/POLYMYXIN B OINT UD PACKET TP SCH ×2 (09:53→20:57)
[2023-01-22] MEDS: MULTIVIT, IRON, MIN NO. 8, FA TABLET PO SCH (17:23)
[2023-01-22] MEDS: MAGNESIUM OXIDE 400 MG TABLET PO SCH (17:23)
[2023-01-22] MEDS: CHOLECALCIFEROL 1,000 UNIT TABLET PO SCH (17:23)
[2023-01-22] MEDS: OMEGA-3 FATTY ACIDS/FISH OIL CAPSULE PO SCH (17:23)
[2023-01-22] MEDS: ASPIRIN 81 MG TAB.CHEW PO SCH (17:23)
[2023-01-22] MEDS: ATORVASTATIN 20 MG TABLET PO SCH (17:23)
[2023-01-22] MEDS: GUAIFENESIN SUGAR FREE 100 MG/5 ML UDC PO PRN (17:24)
[2023-01-22] MEDS: LATANOPROST OPHT DROP 2.5 ML BOTTLE EACHEYE SCH (20:57)
[2023-01-23] VITALS (9 sets, daily range): TEMP 97.8–98; O2SAT 97–99
[2023-01-23] MEDS: IPRATROPIUM/ALBUTEROL SULFATE 3 ML AMPUL.NEB NEB SCH ×4 (01:23→19:15)
[2023-01-23] MEDS: LEVOTHYROXINE SODIUM 112 MCG TABLET PO SCH (05:45)
[2023-01-23] MEDS: HYDROGEN PEROXIDE 3% 118 ML BOTTLE TP SCH ×2 (07:53→20:49)
[2023-01-23] MEDS: BUDESONIDE 0.5 MG/2 ML NEBU NEB SCH ×2 (07:53→19:15)
[2023-01-23] MEDS: DORZOLAMIDE/TIMOLOL OPHT DROP 10 ML BOTTLE EACHEYE SCH ×2 (09:07→17:29)
[2023-01-23] MEDS: FERROUS SULFATE 325 MG TABEC PO SCH (09:09)
[2023-01-23] MEDS: TOLTERODINE 1 MG TABLET PO SCH ×2 (09:09→17:30)
[2023-01-23] MEDS: levETIRAcetam 500 MG/5 ML LIQUID UDC PO SCH ×2 (09:10→17:30)
[2023-01-23] MEDS: FOLIC ACID 1 MG TABLET PO SCH (09:10)
[2023-01-23] MEDS: NEOMY/BACITRA/POLYMYXIN B OINT UD PACKET TP SCH ×2 (09:11→21:20)
[2023-01-23] MEDS: REMEDY ESSENTIAL ZINC PASTE 113 GM TP SCH ×2 (09:11→21:20)
[2023-01-23] MEDS: VITAMINS A AND D OINT 42 GM TUBE TP SCH ×2 (09:11→21:20)
[2023-01-23] MEDS: MIRALAX 17 GM POWD.PACK PO SCH ×2 (09:11→17:30)
[2023-01-23] MEDS: GUAIFENESIN SUGAR FREE 100 MG/5 ML UDC PO PRN (09:12)
[2023-01-23] MEDS: BENZONATATE 100 MG CAPSULE PO PRN (09:14)
[2023-01-23] MEDS: OMEGA-3 FATTY ACIDS/FISH OIL CAPSULE PO SCH (17:31)
[2023-01-23] MEDS: MAGNESIUM OXIDE 400 MG TABLET PO SCH (17:31)
[2023-01-23] MEDS: ASPIRIN 81 MG TAB.CHEW PO SCH (17:31)
[2023-01-23] MEDS: ATORVASTATIN 20 MG TABLET PO SCH (17:31)
[2023-01-23] MEDS: MULTIVIT, IRON, MIN NO. 8, FA TABLET PO SCH (17:32)
[2023-01-23] MEDS: CHOLECALCIFEROL 1,000 UNIT TABLET PO SCH (17:59)
[2023-01-23] MEDS: LATANOPROST OPHT DROP 2.5 ML BOTTLE EACHEYE SCH (21:20)
[2023-01-24] VITALS (15 sets, daily range): TEMP 97.9–98.1; O2SAT 96–99
[2023-01-24] MEDS: IPRATROPIUM/ALBUTEROL SULFATE 3 ML AMPUL.NEB NEB SCH ×4 (01:24→21:42)
[2023-01-24] MEDS: LEVOTHYROXINE SODIUM 112 MCG TABLET PO SCH (06:27)
[2023-01-24] MEDS: BUDESONIDE 0.5 MG/2 ML NEBU NEB SCH ×2 (07:34→21:42)
[2023-01-24] MEDS: HYDROGEN PEROXIDE 3% 118 ML BOTTLE TP SCH ×2 (08:50→21:43)
[2023-01-24] MEDS: DORZOLAMIDE/TIMOLOL OPHT DROP 10 ML BOTTLE EACHEYE SCH ×2 (09:31→17:14)
[2023-01-24] MEDS: FOLIC ACID 1 MG TABLET PO SCH (09:32)
[2023-01-24] MEDS: levETIRAcetam 500 MG/5 ML LIQUID UDC PO SCH ×2 (09:32→17:14)
[2023-01-24] MEDS: MIRALAX 17 GM POWD.PACK PO SCH ×2 (09:32→17:15)
[2023-01-24] MEDS: TOLTERODINE 1 MG TABLET PO SCH ×2 (09:32→17:14)
[2023-01-24] MEDS: FERROUS SULFATE 325 MG TABEC PO SCH (09:32)
[2023-01-24] MEDS: NEOMY/BACITRA/POLYMYXIN B OINT UD PACKET TP SCH ×2 (09:33→20:31)
[2023-01-24] MEDS: VITAMINS A AND D OINT 42 GM TUBE TP SCH ×2 (09:33→20:32)
[2023-01-24] MEDS: REMEDY ESSENTIAL ZINC PASTE 113 GM TP SCH ×2 (09:33→20:31)
[2023-01-24] MEDS: OMEGA-3 FATTY ACIDS/FISH OIL CAPSULE PO SCH (17:15)
[2023-01-24] MEDS: MAGNESIUM OXIDE 400 MG TABLET PO SCH (17:15)
[2023-01-24] MEDS: MULTIVIT, IRON, MIN NO. 8, FA TABLET PO SCH (17:15)
[2023-01-24] MEDS: ASPIRIN 81 MG TAB.CHEW PO SCH (17:15)
[2023-01-24] MEDS: ATORVASTATIN 20 MG TABLET PO SCH (17:15)
[2023-01-24] MEDS: BENZONATATE 100 MG CAPSULE PO PRN (17:16)
[2023-01-24] MEDS: GUAIFENESIN SUGAR FREE 100 MG/5 ML UDC PO PRN (17:16)
[2023-01-24] MEDS: CHOLECALCIFEROL 1,000 UNIT TABLET PO SCH (17:22)
[2023-01-24] MEDS: LATANOPROST OPHT DROP 2.5 ML BOTTLE EACHEYE SCH (20:31)
[2023-01-25] VITALS (8 sets, daily range): TEMP 97.3–98.1; O2SAT 98–100
[2023-01-25] MEDS: IPRATROPIUM/ALBUTEROL SULFATE 3 ML AMPUL.NEB NEB SCH ×4 (00:42→19:17)
[2023-01-25] MEDS: LEVOTHYROXINE SODIUM 112 MCG TABLET PO SCH (06:45)
[2023-01-25] MEDS: BUDESONIDE 0.5 MG/2 ML NEBU NEB SCH ×2 (08:02→19:17)
[2023-01-25] MEDS: HYDROGEN PEROXIDE 3% 118 ML BOTTLE TP SCH ×2 (08:03→22:06)
[2023-01-25] MEDS: FOLIC ACID 1 MG TABLET PO SCH (09:13)
[2023-01-25] MEDS: FERROUS SULFATE 325 MG TABEC PO SCH (09:13)
[2023-01-25] MEDS: TOLTERODINE 1 MG TABLET PO SCH ×2 (09:13→17:13)
[2023-01-25] MEDS: DORZOLAMIDE/TIMOLOL OPHT DROP 10 ML BOTTLE EACHEYE SCH ×2 (09:13→17:13)
[2023-01-25] MEDS: levETIRAcetam 500 MG/5 ML LIQUID UDC PO SCH ×2 (09:18→17:13)
[2023-01-25] MEDS: MIRALAX 17 GM POWD.PACK PO SCH ×2 (09:19→17:13)
[2023-01-25] MEDS: NEOMY/BACITRA/POLYMYXIN B OINT UD PACKET TP SCH ×2 (09:20→20:58)
[2023-01-25] MEDS: REMEDY ESSENTIAL ZINC PASTE 113 GM TP SCH ×2 (09:20→20:58)
[2023-01-25] MEDS: VITAMINS A AND D OINT 42 GM TUBE TP SCH ×2 (09:20→20:58)
[2023-01-25] MEDS: OMEGA-3 FATTY ACIDS/FISH OIL CAPSULE PO SCH (17:13)
[2023-01-25] MEDS: ASPIRIN 81 MG TAB.CHEW PO SCH (17:13)
[2023-01-25] MEDS: ATORVASTATIN 20 MG TABLET PO SCH (17:13)
[2023-01-25] MEDS: CHOLECALCIFEROL 1,000 UNIT TABLET PO SCH (17:14)
[2023-01-25] MEDS: MULTIVIT, IRON, MIN NO. 8, FA TABLET PO SCH (17:14)
[2023-01-25] MEDS: MAGNESIUM OXIDE 400 MG TABLET PO SCH (17:14)
[2023-01-25] MEDS: LATANOPROST OPHT DROP 2.5 ML BOTTLE EACHEYE SCH (20:57)
[2023-01-26] VITALS (10 sets, daily range): TEMP 98–98.5; O2SAT 98–100
[2023-01-26] MEDS: IPRATROPIUM/ALBUTEROL SULFATE 3 ML AMPUL.NEB NEB SCH ×4 (00:44→19:30)
[2023-01-26] MEDS: LEVOTHYROXINE SODIUM 112 MCG TABLET PO SCH (06:03)
[2023-01-26] MEDS: HYDROGEN PEROXIDE 3% 118 ML BOTTLE TP SCH ×2 (08:09→21:00)
[2023-01-26] MEDS: BUDESONIDE 0.5 MG/2 ML NEBU NEB SCH ×2 (08:09→19:50)
[2023-01-26] MEDS: DORZOLAMIDE/TIMOLOL OPHT DROP 10 ML BOTTLE EACHEYE SCH ×2 (09:16→16:09)
[2023-01-26] MEDS: TOLTERODINE 1 MG TABLET PO SCH ×2 (09:16→16:09)
[2023-01-26] MEDS: FERROUS SULFATE 325 MG TABEC PO SCH (09:17)
[2023-01-26] MEDS: FOLIC ACID 1 MG TABLET PO SCH (09:18)
[2023-01-26] MEDS: levETIRAcetam 500 MG/5 ML LIQUID UDC PO SCH ×2 (09:18→16:09)
[2023-01-26] MEDS: VITAMINS A AND D OINT 42 GM TUBE TP SCH ×2 (09:19→20:53)
[2023-01-26] MEDS: REMEDY ESSENTIAL ZINC PASTE 113 GM TP SCH ×2 (09:19→20:53)
[2023-01-26] MEDS: MIRALAX 17 GM POWD.PACK PO SCH ×2 (09:19→16:09)
[2023-01-26] MEDS: NEOMY/BACITRA/POLYMYXIN B OINT UD PACKET TP SCH ×2 (09:19→20:53)
[2023-01-26] MEDS: OMEGA-3 FATTY ACIDS/FISH OIL CAPSULE PO SCH (17:15)
[2023-01-26] MEDS: ASPIRIN 81 MG TAB.CHEW PO SCH (17:15)
[2023-01-26] MEDS: MULTIVIT, IRON, MIN NO. 8, FA TABLET PO SCH (17:15)
[2023-01-26] MEDS: CHOLECALCIFEROL 1,000 UNIT TABLET PO SCH (17:15)
[2023-01-26] MEDS: ATORVASTATIN 20 MG TABLET PO SCH (17:15)
[2023-01-26] MEDS: MAGNESIUM OXIDE 400 MG TABLET PO SCH (17:15)
[2023-01-26] MEDS: LATANOPROST OPHT DROP 2.5 ML BOTTLE EACHEYE SCH (20:53)
[2023-01-27] VITALS (10 sets, daily range): TEMP 97.7–98; O2SAT 98–99
[2023-01-27] MEDS: IPRATROPIUM/ALBUTEROL SULFATE 3 ML AMPUL.NEB NEB SCH ×4 (01:30→19:11)
[2023-01-27] MEDS: LEVOTHYROXINE SODIUM 112 MCG TABLET PO SCH (05:31)
[2023-01-27] MEDS: BUDESONIDE 0.5 MG/2 ML NEBU NEB SCH ×2 (07:52→19:11)
[2023-01-27] MEDS: HYDROGEN PEROXIDE 3% 118 ML BOTTLE TP SCH ×2 (08:08→19:11)
[2023-01-27] MEDS: DORZOLAMIDE/TIMOLOL OPHT DROP 10 ML BOTTLE EACHEYE SCH ×2 (09:15→16:37)
[2023-01-27] MEDS: TOLTERODINE 1 MG TABLET PO SCH ×2 (09:17→16:39)
[2023-01-27] MEDS: FERROUS SULFATE 325 MG TABEC PO SCH (09:17)
[2023-01-27] MEDS: FOLIC ACID 1 MG TABLET PO SCH (09:17)
[2023-01-27] MEDS: levETIRAcetam 500 MG/5 ML LIQUID UDC PO SCH ×2 (09:17→16:45)
[2023-01-27] MEDS: NEOMY/BACITRA/POLYMYXIN B OINT UD PACKET TP SCH ×2 (09:18→21:11)
[2023-01-27] MEDS: MIRALAX 17 GM POWD.PACK PO SCH ×2 (09:18→16:56)
[2023-01-27] MEDS: REMEDY ESSENTIAL ZINC PASTE 113 GM TP SCH ×2 (09:18→21:11)
[2023-01-27] MEDS: VITAMINS A AND D OINT 42 GM TUBE TP SCH ×2 (09:19→21:11)
[2023-01-27] MEDS: BENZONATATE 100 MG CAPSULE PO PRN ×2 (09:21→17:06)
[2023-01-27] MEDS: GUAIFENESIN SUGAR FREE 100 MG/5 ML UDC PO PRN ×2 (09:21→17:06)
[2023-01-27] MEDS: MULTIVIT, IRON, MIN NO. 8, FA TABLET PO SCH (17:07)
[2023-01-27] MEDS: CHOLECALCIFEROL 1,000 UNIT TABLET PO SCH (17:07)
[2023-01-27] MEDS: MAGNESIUM OXIDE 400 MG TABLET PO SCH (17:08)
[2023-01-27] MEDS: OMEGA-3 FATTY ACIDS/FISH OIL CAPSULE PO SCH (17:09)
[2023-01-27] MEDS: ATORVASTATIN 20 MG TABLET PO SCH (17:09)
[2023-01-27] MEDS: ASPIRIN 81 MG TAB.CHEW PO SCH (17:10)
[2023-01-27] MEDS: LATANOPROST OPHT DROP 2.5 ML BOTTLE EACHEYE SCH (21:11)
[2023-01-28] VITALS (10 sets, daily range): TEMP 97.9–98; O2SAT 98–100
[2023-01-28] MEDS: IPRATROPIUM/ALBUTEROL SULFATE 3 ML AMPUL.NEB NEB SCH ×4 (01:30→19:12)
[2023-01-28] MEDS: LEVOTHYROXINE SODIUM 112 MCG TABLET PO SCH (06:01)
[2023-01-28] MEDS: BUDESONIDE 0.5 MG/2 ML NEBU NEB SCH ×2 (07:34→19:30)
[2023-01-28] MEDS: HYDROGEN PEROXIDE 3% 118 ML BOTTLE TP SCH ×2 (09:38→21:18)
[2023-01-28] MEDS: FOLIC ACID 1 MG TABLET PO SCH (09:46)
[2023-01-28] MEDS: TOLTERODINE 1 MG TABLET PO SCH ×2 (09:46→17:03)
[2023-01-28] MEDS: FERROUS SULFATE 325 MG TABEC PO SCH (09:46)
[2023-01-28] MEDS: VITAMINS A AND D OINT 42 GM TUBE TP SCH ×2 (09:47→21:28)
[2023-01-28] MEDS: NEOMY/BACITRA/POLYMYXIN B OINT UD PACKET TP SCH ×2 (09:47→21:28)
[2023-01-28] MEDS: REMEDY ESSENTIAL ZINC PASTE 113 GM TP SCH ×2 (09:47→21:28)
[2023-01-28] MEDS: MIRALAX 17 GM POWD.PACK PO SCH ×2 (09:47→17:03)
[2023-01-28] MEDS: GUAIFENESIN SUGAR FREE 100 MG/5 ML UDC PO PRN (09:47)
[2023-01-28] MEDS: levETIRAcetam 500 MG/5 ML LIQUID UDC PO SCH ×2 (09:47→17:03)
[2023-01-28] MEDS: BENZONATATE 100 MG CAPSULE PO PRN (09:47)
[2023-01-28] MEDS: DORZOLAMIDE/TIMOLOL OPHT DROP 10 ML BOTTLE EACHEYE SCH ×2 (09:48→17:03)
[2023-01-28] MEDS: MULTIVIT, IRON, MIN NO. 8, FA TABLET PO SCH (17:03)
[2023-01-28] MEDS: CHOLECALCIFEROL 1,000 UNIT TABLET PO SCH (17:03)
[2023-01-28] MEDS: ATORVASTATIN 20 MG TABLET PO SCH (17:03)
[2023-01-28] MEDS: OMEGA-3 FATTY ACIDS/FISH OIL CAPSULE PO SCH (17:03)
[2023-01-28] MEDS: ASPIRIN 81 MG TAB.CHEW PO SCH (17:03)
[2023-01-28] MEDS: MAGNESIUM OXIDE 400 MG TABLET PO SCH (17:03)
[2023-01-28] MEDS: LATANOPROST OPHT DROP 2.5 ML BOTTLE EACHEYE SCH (21:28)
[2023-01-29] VITALS (12 sets, daily range): TEMP 97.9–98; O2SAT 98–100
[2023-01-29] MEDS: IPRATROPIUM/ALBUTEROL SULFATE 3 ML AMPUL.NEB NEB SCH ×4 (01:30→19:26)
[2023-01-29] MEDS: LEVOTHYROXINE SODIUM 112 MCG TABLET PO SCH (06:03)
[2023-01-29] MEDS: BUDESONIDE 0.5 MG/2 ML NEBU NEB SCH ×2 (07:25→20:03)
[2023-01-29] MEDS: HYDROGEN PEROXIDE 3% 118 ML BOTTLE TP SCH ×2 (07:25→19:27)
[2023-01-29] MEDS: TOLTERODINE 1 MG TABLET PO SCH ×2 (09:44→18:03)
[2023-01-29] MEDS: FOLIC ACID 1 MG TABLET PO SCH (09:45)
[2023-01-29] MEDS: FERROUS SULFATE 325 MG TABEC PO SCH (09:45)
[2023-01-29] MEDS: levETIRAcetam 500 MG/5 ML LIQUID UDC PO SCH ×2 (09:45→18:03)
[2023-01-29] MEDS: REMEDY ESSENTIAL ZINC PASTE 113 GM TP SCH ×2 (09:46→20:55)
[2023-01-29] MEDS: VITAMINS A AND D OINT 42 GM TUBE TP SCH ×2 (09:46→20:55)
[2023-01-29] MEDS: MIRALAX 17 GM POWD.PACK PO SCH ×2 (09:46→18:03)
[2023-01-29] MEDS: NEOMY/BACITRA/POLYMYXIN B OINT UD PACKET TP SCH ×2 (09:46→20:55)
[2023-01-29] MEDS: GUAIFENESIN SUGAR FREE 100 MG/5 ML UDC PO PRN ×2 (09:49→18:06)
[2023-01-29] MEDS: BENZONATATE 100 MG CAPSULE PO PRN ×2 (09:49→18:06)
[2023-01-29] MEDS: DORZOLAMIDE/TIMOLOL OPHT DROP 10 ML BOTTLE EACHEYE SCH ×2 (09:55→17:00)
[2023-01-29] MEDS: ATORVASTATIN 20 MG TABLET PO SCH (18:03)
[2023-01-29] MEDS: CHOLECALCIFEROL 1,000 UNIT TABLET PO SCH (18:03)
[2023-01-29] MEDS: MULTIVIT, IRON, MIN NO. 8, FA TABLET PO SCH (18:03)
[2023-01-29] MEDS: MAGNESIUM OXIDE 400 MG TABLET PO SCH (18:03)
[2023-01-29] MEDS: OMEGA-3 FATTY ACIDS/FISH OIL CAPSULE PO SCH (18:03)
[2023-01-29] MEDS: ASPIRIN 81 MG TAB.CHEW PO SCH (18:03)
[2023-01-29] MEDS: LATANOPROST OPHT DROP 2.5 ML BOTTLE EACHEYE SCH (20:55)
[2023-01-30] VITALS (12 sets, daily range): TEMP 97.1–98; O2SAT 98–100
[2023-01-30] MEDS: IPRATROPIUM/ALBUTEROL SULFATE 3 ML AMPUL.NEB NEB SCH ×4 (00:30→19:14)
[2023-01-30] MEDS: LEVOTHYROXINE SODIUM 112 MCG TABLET PO SCH (06:00)
[2023-01-30 06:57] LABS: BASOPHILS % (AUTO) 0.4 % (0.0-2.0); EOSINOPHILS # (AUTO) 0.1 K/uL (0.0-0.7); EOSINOPHILS % (AUTO) 2.5 % (0.0-7.0); HEMATOCRIT 34.6 % (31.2-41.9); HEMOGLOBIN 11.5 g/dL (10.9-14.3); LYMPHOCYTES # (AUTO) 1.5 K/uL (0.8-4.8); MEAN CORPUSCULAR HEMOGLOBIN 29.7 uug (24.7-32.8); MEAN CORPUSCULAR HGB CONC 33 g/dL (32.3-35.6); MEAN CORPUSCULAR VOLUME 89.6 fL (75.5-95.3); MONOCYTES # (AUTO) 0.6 K/uL (0.1-1.30); MONOCYTES % (AUTO) 10.8 % (0.0-11.0); NEUTROPHILS # (AUTO) 3.2 K/uL (1.8-8.9); NEUTROPHILS % (AUTO) 58.3 % (38.5-71.5); PLATELET COUNT (AUTO) 225 K/uL (179-408); RED BLOOD CELL COUNT(AUTO) 3.86 MIL/uL (3.63-4.92); RED CELL DISTRIBUTION WIDTH 15.2 % (12.3-17.7); WHITE BLOOD COUNT (AUTO) 5.5 K/uL (3.8-11.8)
[2023-01-30] MEDS: HYDROGEN PEROXIDE 3% 118 ML BOTTLE TP SCH ×2 (07:17→19:14)
[2023-01-30] MEDS: BUDESONIDE 0.5 MG/2 ML NEBU NEB SCH ×2 (07:17→20:01)
[2023-01-30 07:19] LABS: CALCIUM 8.8 mg/dL (8.5-10.1); CARBON DIOXIDE 35 mmol/L (21-32); CHLORIDE 97 mmol/L (98-107); CREATININE 0.6 mg/dL (0.6-1.3); GLUCOSE 87 mg/dL (74-106); MAGNESIUM 1.8 mg/dL (1.8-2.4); PHOSPHOROUS 4.6 mg/dL (2.5-4.9); SODIUM SERUM 136 mmol/L (136-145); UREA NITROGEN, BLOOD 13 mg/dL (7-18)
[2023-01-30 07:59] LABS: DIFFERENTIAL COMMENT 1
[2023-01-30] MEDS: DORZOLAMIDE/TIMOLOL OPHT DROP 10 ML BOTTLE EACHEYE SCH ×2 (09:22→17:53)
[2023-01-30] MEDS: FOLIC ACID 1 MG TABLET PO SCH (09:23)
[2023-01-30] MEDS: TOLTERODINE 1 MG TABLET PO SCH ×2 (09:23→17:53)
[2023-01-30] MEDS: FERROUS SULFATE 325 MG TABEC PO SCH (09:23)
[2023-01-30] MEDS: levETIRAcetam 500 MG/5 ML LIQUID UDC PO SCH ×2 (09:23→17:55)
[2023-01-30] MEDS: MIRALAX 17 GM POWD.PACK PO SCH ×2 (09:24→17:55)
[2023-01-30] MEDS: NYSTATIN CREAM 30 GM TUBE TOP SCH ×2 (09:26→21:05)
[2023-01-30] MEDS: REMEDY ESSENTIAL ZINC PASTE 113 GM TP SCH ×4 (09:26→21:05)
[2023-01-30] MEDS: VITAMINS A AND D OINT 42 GM TUBE TP SCH ×2 (09:27→21:06)
[2023-01-30] MEDS: BENZONATATE 100 MG CAPSULE PO PRN ×2 (09:29→17:58)
[2023-01-30] MEDS: GUAIFENESIN SUGAR FREE 100 MG/5 ML UDC PO PRN ×2 (09:29→17:58)
[2023-01-30] MEDS: NEOMY/BACITRA/POLYMYXIN B OINT UD PACKET TP SCH ×2 (09:33→21:05)
[2023-01-30] MEDS: ATORVASTATIN 20 MG TABLET PO SCH (17:56)
[2023-01-30] MEDS: MAGNESIUM OXIDE 400 MG TABLET PO SCH (17:56)
[2023-01-30] MEDS: OMEGA-3 FATTY ACIDS/FISH OIL CAPSULE PO SCH (17:56)
[2023-01-30] MEDS: ASPIRIN 81 MG TAB.CHEW PO SCH (17:56)
[2023-01-30] MEDS: CHOLECALCIFEROL 1,000 UNIT TABLET PO SCH (17:57)
[2023-01-30] MEDS: MULTIVIT, IRON, MIN NO. 8, FA TABLET PO SCH (17:57)
[2023-01-30] MEDS: LATANOPROST OPHT DROP 2.5 ML BOTTLE EACHEYE SCH (21:05)
[2023-01-31] VITALS (10 sets, daily range): TEMP 97.6–97.7; O2SAT 98–99
[2023-01-31] MEDS: IPRATROPIUM/ALBUTEROL SULFATE 3 ML AMPUL.NEB NEB SCH ×4 (00:33→19:20)
[2023-01-31] MEDS: LEVOTHYROXINE SODIUM 112 MCG TABLET PO SCH (05:32)
[2023-01-31] MEDS: BUDESONIDE 0.5 MG/2 ML NEBU NEB SCH ×2 (08:22→19:20)
[2023-01-31] MEDS: HYDROGEN PEROXIDE 3% 118 ML BOTTLE TP SCH ×2 (09:08→19:20)
[2023-01-31] MEDS: FERROUS SULFATE 325 MG TABEC PO SCH (09:28)
[2023-01-31] MEDS: DORZOLAMIDE/TIMOLOL OPHT DROP 10 ML BOTTLE EACHEYE SCH ×2 (09:28→17:00)
[2023-01-31] MEDS: TOLTERODINE 1 MG TABLET PO SCH ×2 (09:28→17:00)
[2023-01-31] MEDS: FOLIC ACID 1 MG TABLET PO SCH (09:28)
[2023-01-31] MEDS: levETIRAcetam 500 MG/5 ML LIQUID UDC PO SCH ×2 (09:29→17:00)
[2023-01-31] MEDS: MIRALAX 17 GM POWD.PACK PO SCH ×2 (09:31→17:00)
[2023-01-31] MEDS: NYSTATIN CREAM 30 GM TUBE TOP SCH ×2 (09:31→21:21)
[2023-01-31] MEDS: REMEDY ESSENTIAL ZINC PASTE 113 GM TP SCH ×4 (09:32→21:22)
[2023-01-31] MEDS: NEOMY/BACITRA/POLYMYXIN B OINT UD PACKET TP SCH ×2 (09:32→21:22)
[2023-01-31] MEDS: VITAMINS A AND D OINT 42 GM TUBE TP SCH ×2 (09:33→21:22)
[2023-01-31] MEDS: BENZONATATE 100 MG CAPSULE PO PRN ×2 (09:35→18:15)
[2023-01-31] MEDS: GUAIFENESIN SUGAR FREE 100 MG/5 ML UDC PO PRN ×2 (09:35→18:15)
[2023-01-31] MEDS: ASPIRIN 81 MG TAB.CHEW PO SCH (18:12)
[2023-01-31] MEDS: OMEGA-3 FATTY ACIDS/FISH OIL CAPSULE PO SCH (18:13)
[2023-01-31] MEDS: MAGNESIUM OXIDE 400 MG TABLET PO SCH (18:13)
[2023-01-31] MEDS: ATORVASTATIN 20 MG TABLET PO SCH (18:13)
[2023-01-31] MEDS: CHOLECALCIFEROL 1,000 UNIT TABLET PO SCH (18:14)
[2023-01-31] MEDS: MULTIVIT, IRON, MIN NO. 8, FA TABLET PO SCH (18:14)
[2023-01-31] MEDS: LATANOPROST OPHT DROP 2.5 ML BOTTLE EACHEYE SCH (21:21)
[2023-02-01] VITALS (10 sets, daily range): TEMP 97.9–98.1; O2SAT 97–99
[2023-02-01] MEDS: IPRATROPIUM/ALBUTEROL SULFATE 3 ML AMPUL.NEB NEB SCH ×4 (01:04→19:12)
[2023-02-01] MEDS: LEVOTHYROXINE SODIUM 112 MCG TABLET PO SCH (05:31)
[2023-02-01] MEDS: BUDESONIDE 0.5 MG/2 ML NEBU NEB SCH ×2 (08:04→19:12)
[2023-02-01] MEDS: HYDROGEN PEROXIDE 3% 118 ML BOTTLE TP SCH ×2 (08:04→19:12)
[2023-02-01] MEDS: TOLTERODINE 1 MG TABLET PO SCH ×2 (09:35→17:32)
[2023-02-01] MEDS: DORZOLAMIDE/TIMOLOL OPHT DROP 10 ML BOTTLE EACHEYE SCH ×2 (09:35→17:32)
[2023-02-01] MEDS: FERROUS SULFATE 325 MG TABEC PO SCH (09:35)
[2023-02-01] MEDS: FOLIC ACID 1 MG TABLET PO SCH (09:36)
[2023-02-01] MEDS: levETIRAcetam 500 MG/5 ML LIQUID UDC PO SCH ×2 (09:38→17:33)
[2023-02-01] MEDS: VITAMINS A AND D OINT 42 GM TUBE TP SCH ×2 (09:38→20:50)
[2023-02-01] MEDS: REMEDY ESSENTIAL ZINC PASTE 113 GM TP SCH ×4 (09:38→20:50)
[2023-02-01] MEDS: NEOMY/BACITRA/POLYMYXIN B OINT UD PACKET TP SCH ×2 (09:38→20:50)
[2023-02-01] MEDS: MIRALAX 17 GM POWD.PACK PO SCH ×2 (09:38→17:33)
[2023-02-01] MEDS: NYSTATIN CREAM 30 GM TUBE TOP SCH ×2 (09:38→20:49)
[2023-02-01] MEDS: GUAIFENESIN SUGAR FREE 100 MG/5 ML UDC PO PRN ×2 (09:40→17:36)
[2023-02-01] MEDS: BENZONATATE 100 MG CAPSULE PO PRN ×2 (09:40→17:36)
[2023-02-01] MEDS: ASPIRIN 81 MG TAB.CHEW PO SCH (17:34)
[2023-02-01] MEDS: MAGNESIUM OXIDE 400 MG TABLET PO SCH (17:34)
[2023-02-01] MEDS: MULTIVIT, IRON, MIN NO. 8, FA TABLET PO SCH (17:34)
[2023-02-01] MEDS: CHOLECALCIFEROL 1,000 UNIT TABLET PO SCH (17:34)
[2023-02-01] MEDS: ATORVASTATIN 20 MG TABLET PO SCH (17:34)
[2023-02-01] MEDS: OMEGA-3 FATTY ACIDS/FISH OIL CAPSULE PO SCH (17:34)
[2023-02-01] MEDS: LATANOPROST OPHT DROP 2.5 ML BOTTLE EACHEYE SCH (20:49)
[2023-02-02] VITALS (10 sets, daily range): TEMP 97.5–98.3; O2SAT 98–99
[2023-02-02] MEDS: IPRATROPIUM/ALBUTEROL SULFATE 3 ML AMPUL.NEB NEB SCH ×4 (01:43→19:14)
[2023-02-02] MEDS: LEVOTHYROXINE SODIUM 112 MCG TABLET PO SCH (05:33)
[2023-02-02] MEDS: BUDESONIDE 0.5 MG/2 ML NEBU NEB SCH ×2 (08:20→19:14)
[2023-02-02] MEDS: HYDROGEN PEROXIDE 3% 118 ML BOTTLE TP SCH ×2 (08:20→21:32)
[2023-02-02] MEDS: TOLTERODINE 1 MG TABLET PO SCH ×2 (08:43→17:00)
[2023-02-02] MEDS: FERROUS SULFATE 325 MG TABEC PO SCH (08:43)
[2023-02-02] MEDS: DORZOLAMIDE/TIMOLOL OPHT DROP 10 ML BOTTLE EACHEYE SCH ×2 (08:43→17:00)
[2023-02-02] MEDS: FOLIC ACID 1 MG TABLET PO SCH (08:44)
[2023-02-02] MEDS: levETIRAcetam 500 MG/5 ML LIQUID UDC PO SCH ×2 (08:44→17:00)
[2023-02-02] MEDS: MIRALAX 17 GM POWD.PACK PO SCH ×2 (08:45→17:00)
[2023-02-02] MEDS: NYSTATIN CREAM 30 GM TUBE TOP SCH ×2 (08:45→20:35)
[2023-02-02] MEDS: NEOMY/BACITRA/POLYMYXIN B OINT UD PACKET TP SCH ×2 (08:46→20:35)
[2023-02-02] MEDS: VITAMINS A AND D OINT 42 GM TUBE TP SCH ×2 (08:46→20:35)
[2023-02-02] MEDS: REMEDY ESSENTIAL ZINC PASTE 113 GM TP SCH ×4 (08:46→20:35)
[2023-02-02] MEDS: ATORVASTATIN 20 MG TABLET PO SCH (18:20)
[2023-02-02] MEDS: MAGNESIUM OXIDE 400 MG TABLET PO SCH (18:20)
[2023-02-02] MEDS: ASPIRIN 81 MG TAB.CHEW PO SCH (18:20)
[2023-02-02] MEDS: MULTIVIT, IRON, MIN NO. 8, FA TABLET PO SCH (18:20)
[2023-02-02] MEDS: OMEGA-3 FATTY ACIDS/FISH OIL CAPSULE PO SCH (18:20)
[2023-02-02] MEDS: CHOLECALCIFEROL 1,000 UNIT TABLET PO SCH (18:22)
[2023-02-02] MEDS: LATANOPROST OPHT DROP 2.5 ML BOTTLE EACHEYE SCH (20:35)
[2023-02-03] VITALS (10 sets, daily range): TEMP 97.7–98.6; O2SAT 98–99
[2023-02-03] MEDS: IPRATROPIUM/ALBUTEROL SULFATE 3 ML AMPUL.NEB NEB SCH ×4 (01:02→19:15)
[2023-02-03] MEDS: LEVOTHYROXINE SODIUM 112 MCG TABLET PO SCH (05:36)
[2023-02-03] MEDS: GUAIFENESIN SUGAR FREE 100 MG/5 ML UDC PO PRN (05:38)
[2023-02-03] MEDS: BENZONATATE 100 MG CAPSULE PO PRN ×2 (05:40→18:00)
[2023-02-03] MEDS: BUDESONIDE 0.5 MG/2 ML NEBU NEB SCH ×2 (06:39→19:15)
[2023-02-03] MEDS: HYDROGEN PEROXIDE 3% 118 ML BOTTLE TP SCH ×2 (09:00→19:15)
[2023-02-03] MEDS: DORZOLAMIDE/TIMOLOL OPHT DROP 10 ML BOTTLE EACHEYE SCH ×2 (09:47→17:33)
[2023-02-03] MEDS: TOLTERODINE 1 MG TABLET PO SCH ×2 (09:47→17:33)
[2023-02-03] MEDS: levETIRAcetam 500 MG/5 ML LIQUID UDC PO SCH ×2 (09:47→17:33)
[2023-02-03] MEDS: NEOMY/BACITRA/POLYMYXIN B OINT UD PACKET TP SCH ×2 (09:47→21:09)
[2023-02-03] MEDS: REMEDY ESSENTIAL ZINC PASTE 113 GM TP SCH ×4 (09:47→21:09)
[2023-02-03] MEDS: FOLIC ACID 1 MG TABLET PO SCH (09:47)
[2023-02-03] MEDS: MIRALAX 17 GM POWD.PACK PO SCH ×2 (09:47→17:33)
[2023-02-03] MEDS: NYSTATIN CREAM 30 GM TUBE TOP SCH ×2 (09:47→21:09)
[2023-02-03] MEDS: FERROUS SULFATE 325 MG TABEC PO SCH (09:47)
[2023-02-03] MEDS: VITAMINS A AND D OINT 42 GM TUBE TP SCH ×2 (09:48→21:09)
[2023-02-03] MEDS: ASPIRIN 81 MG TAB.CHEW PO SCH (17:33)
[2023-02-03] MEDS: MULTIVIT, IRON, MIN NO. 8, FA TABLET PO SCH (17:33)
[2023-02-03] MEDS: OMEGA-3 FATTY ACIDS/FISH OIL CAPSULE PO SCH (17:33)
[2023-02-03] MEDS: ATORVASTATIN 20 MG TABLET PO SCH (17:33)
[2023-02-03] MEDS: CHOLECALCIFEROL 1,000 UNIT TABLET PO SCH (17:33)
[2023-02-03] MEDS: MAGNESIUM OXIDE 400 MG TABLET PO SCH (17:33)
[2023-02-03] MEDS: LATANOPROST OPHT DROP 2.5 ML BOTTLE EACHEYE SCH (21:09)
[2023-02-04] VITALS (12 sets, daily range): TEMP 97.9; O2SAT 98–99
[2023-02-04] MEDS: IPRATROPIUM/ALBUTEROL SULFATE 3 ML AMPUL.NEB NEB SCH ×4 (01:08→19:17)
[2023-02-04] MEDS: LEVOTHYROXINE SODIUM 112 MCG TABLET PO SCH (06:31)
[2023-02-04] MEDS: BUDESONIDE 0.5 MG/2 ML NEBU NEB SCH ×2 (07:34→19:52)
[2023-02-04] MEDS: HYDROGEN PEROXIDE 3% 118 ML BOTTLE TP SCH ×2 (07:34→19:17)
[2023-02-04] MEDS: NEOMY/BACITRA/POLYMYXIN B OINT UD PACKET TP SCH ×2 (09:00→20:32)
[2023-02-04] MEDS: TOLTERODINE 1 MG TABLET PO SCH ×2 (09:00→17:00)
[2023-02-04] MEDS: FERROUS SULFATE 325 MG TABEC PO SCH (09:01)
[2023-02-04] MEDS: FOLIC ACID 1 MG TABLET PO SCH (09:01)
[2023-02-04] MEDS: levETIRAcetam 500 MG/5 ML LIQUID UDC PO SCH ×2 (09:01→17:00)
[2023-02-04] MEDS: DORZOLAMIDE/TIMOLOL OPHT DROP 10 ML BOTTLE EACHEYE SCH ×2 (09:04→17:00)
[2023-02-04] MEDS: REMEDY ESSENTIAL ZINC PASTE 113 GM TP SCH ×4 (09:04→20:27)
[2023-02-04] MEDS: MIRALAX 17 GM POWD.PACK PO SCH ×2 (09:04→17:00)
[2023-02-04] MEDS: NYSTATIN CREAM 30 GM TUBE TOP SCH ×2 (09:04→20:34)
[2023-02-04] MEDS: VITAMINS A AND D OINT 42 GM TUBE TP SCH ×2 (09:05→20:32)
[2023-02-04] MEDS: GUAIFENESIN SUGAR FREE 100 MG/5 ML UDC PO PRN ×2 (09:06→17:00)
[2023-02-04] MEDS: BENZONATATE 100 MG CAPSULE PO PRN ×2 (09:06→17:00)
[2023-02-04] MEDS: MAGNESIUM OXIDE 400 MG TABLET PO SCH (17:00)
[2023-02-04] MEDS: ASPIRIN 81 MG TAB.CHEW PO SCH (17:00)
[2023-02-04] MEDS: MULTIVIT, IRON, MIN NO. 8, FA TABLET PO SCH (17:00)
[2023-02-04] MEDS: ATORVASTATIN 20 MG TABLET PO SCH (17:00)
[2023-02-04] MEDS: CHOLECALCIFEROL 1,000 UNIT TABLET PO SCH (17:00)
[2023-02-04] MEDS: OMEGA-3 FATTY ACIDS/FISH OIL CAPSULE PO SCH (17:00)
[2023-02-04] MEDS: LATANOPROST OPHT DROP 2.5 ML BOTTLE EACHEYE SCH (20:23)
[2023-02-05] VITALS (9 sets, daily range): TEMP 98.2; O2SAT 98–99
[2023-02-05] MEDS: IPRATROPIUM/ALBUTEROL SULFATE 3 ML AMPUL.NEB NEB SCH ×4 (00:35→19:13)
[2023-02-05] MEDS: LEVOTHYROXINE SODIUM 112 MCG TABLET PO SCH (05:42)
[2023-02-05] MEDS: BUDESONIDE 0.5 MG/2 ML NEBU NEB SCH ×2 (07:25→19:13)
[2023-02-05] MEDS: HYDROGEN PEROXIDE 3% 118 ML BOTTLE TP SCH ×2 (07:25→19:13)
[2023-02-05] MEDS: NEOMY/BACITRA/POLYMYXIN B OINT UD PACKET TP SCH ×2 (09:00→21:00)
[2023-02-05] MEDS: DORZOLAMIDE/TIMOLOL OPHT DROP 10 ML BOTTLE EACHEYE SCH ×2 (09:00→17:58)
[2023-02-05] MEDS: FERROUS SULFATE 325 MG TABEC PO SCH (09:00)
[2023-02-05] MEDS: VITAMINS A AND D OINT 42 GM TUBE TP SCH ×2 (09:00→21:00)
[2023-02-05] MEDS: FOLIC ACID 1 MG TABLET PO SCH (09:00)
[2023-02-05] MEDS: MIRALAX 17 GM POWD.PACK PO SCH ×2 (09:00→17:58)
[2023-02-05] MEDS: TOLTERODINE 1 MG TABLET PO SCH ×2 (09:00→17:58)
[2023-02-05] MEDS: REMEDY ESSENTIAL ZINC PASTE 113 GM TP SCH ×4 (09:00→21:00)
[2023-02-05] MEDS: NYSTATIN CREAM 30 GM TUBE TOP SCH ×2 (09:00→21:00)
[2023-02-05] MEDS: levETIRAcetam 500 MG/5 ML LIQUID UDC PO SCH ×2 (09:00→17:58)
[2023-02-05] MEDS: GUAIFENESIN SUGAR FREE 100 MG/5 ML UDC PO PRN ×2 (10:15→18:07)
[2023-02-05] MEDS: BENZONATATE 100 MG CAPSULE PO PRN ×2 (10:15→18:07)
[2023-02-05] MEDS: ASPIRIN 81 MG TAB.CHEW PO SCH (18:00)
[2023-02-05] MEDS: OMEGA-3 FATTY ACIDS/FISH OIL CAPSULE PO SCH (18:01)
[2023-02-05] MEDS: MULTIVIT, IRON, MIN NO. 8, FA TABLET PO SCH (18:01)
[2023-02-05] MEDS: ATORVASTATIN 20 MG TABLET PO SCH (18:01)
[2023-02-05] MEDS: MAGNESIUM OXIDE 400 MG TABLET PO SCH (18:01)
[2023-02-05] MEDS: CHOLECALCIFEROL 1,000 UNIT TABLET PO SCH (18:02)
[2023-02-05] MEDS: LATANOPROST OPHT DROP 2.5 ML BOTTLE EACHEYE SCH (21:00)
[2023-02-06] VITALS (14 sets, daily range): TEMP 97.9–98.2; O2SAT 98–99
[2023-02-06] MEDS: IPRATROPIUM/ALBUTEROL SULFATE 3 ML AMPUL.NEB NEB SCH ×4 (01:30→19:12)
[2023-02-06] MEDS: LEVOTHYROXINE SODIUM 112 MCG TABLET PO SCH (07:10)
[2023-02-06] MEDS: BUDESONIDE 0.5 MG/2 ML NEBU NEB SCH ×2 (07:41→19:48)
[2023-02-06] MEDS: HYDROGEN PEROXIDE 3% 118 ML BOTTLE TP SCH ×2 (08:37→19:12)
[2023-02-06] MEDS: VITAMINS A AND D OINT 42 GM TUBE TP SCH ×2 (09:59→20:28)
[2023-02-06] MEDS: REMEDY ESSENTIAL ZINC PASTE 113 GM TP SCH ×4 (09:59→20:28)
[2023-02-06] MEDS: NYSTATIN CREAM 30 GM TUBE TOP SCH ×2 (09:59→20:28)
[2023-02-06] MEDS: MIRALAX 17 GM POWD.PACK PO SCH ×2 (09:59→16:45)
[2023-02-06] MEDS: NEOMY/BACITRA/POLYMYXIN B OINT UD PACKET TP SCH ×2 (09:59→20:28)
[2023-02-06] MEDS: levETIRAcetam 500 MG/5 ML LIQUID UDC PO SCH ×2 (09:59→16:45)
[2023-02-06] MEDS: FERROUS SULFATE 325 MG TABEC PO SCH (09:59)
[2023-02-06] MEDS: DORZOLAMIDE/TIMOLOL OPHT DROP 10 ML BOTTLE EACHEYE SCH ×2 (09:59→16:45)
[2023-02-06] MEDS: TOLTERODINE 1 MG TABLET PO SCH ×2 (09:59→16:45)
[2023-02-06] MEDS: FOLIC ACID 1 MG TABLET PO SCH (09:59)
[2023-02-06] MEDS: BENZONATATE 100 MG CAPSULE PO PRN ×2 (10:08→16:46)
[2023-02-06] MEDS: GUAIFENESIN SUGAR FREE 100 MG/5 ML UDC PO PRN ×2 (10:08→16:46)
[2023-02-06] MEDS: MAGNESIUM OXIDE 400 MG TABLET PO SCH (17:03)
[2023-02-06] MEDS: OMEGA-3 FATTY ACIDS/FISH OIL CAPSULE PO SCH (17:03)
[2023-02-06] MEDS: MULTIVIT, IRON, MIN NO. 8, FA TABLET PO SCH (17:03)
[2023-02-06] MEDS: CHOLECALCIFEROL 1,000 UNIT TABLET PO SCH (17:03)
[2023-02-06] MEDS: ASPIRIN 81 MG TAB.CHEW PO SCH (17:03)
[2023-02-06] MEDS: ATORVASTATIN 20 MG TABLET PO SCH (17:03)
[2023-02-06] MEDS: LATANOPROST OPHT DROP 2.5 ML BOTTLE EACHEYE SCH (20:25)
[2023-02-07] VITALS (14 sets, daily range): TEMP 97.3–97.7; O2SAT 97–99
[2023-02-07] MEDS: IPRATROPIUM/ALBUTEROL SULFATE 3 ML AMPUL.NEB NEB SCH ×4 (00:30→19:11)
[2023-02-07] MEDS: BUDESONIDE 0.5 MG/2 ML NEBU NEB SCH ×2 (06:01→19:52)
[2023-02-07] MEDS: LEVOTHYROXINE SODIUM 112 MCG TABLET PO SCH (06:18)
[2023-02-07] MEDS: HYDROGEN PEROXIDE 3% 118 ML BOTTLE TP SCH ×2 (08:02→19:11)
[2023-02-07] MEDS: DORZOLAMIDE/TIMOLOL OPHT DROP 10 ML BOTTLE EACHEYE SCH ×2 (09:50→17:40)
[2023-02-07] MEDS: TOLTERODINE 1 MG TABLET PO SCH ×2 (09:51→17:40)
[2023-02-07] MEDS: FERROUS SULFATE 325 MG TABEC PO SCH (09:51)
[2023-02-07] MEDS: FOLIC ACID 1 MG TABLET PO SCH (09:52)
[2023-02-07] MEDS: levETIRAcetam 500 MG/5 ML LIQUID UDC PO SCH ×2 (09:52→17:40)
[2023-02-07] MEDS: MIRALAX 17 GM POWD.PACK PO SCH ×2 (09:53→17:41)
[2023-02-07] MEDS: REMEDY ESSENTIAL ZINC PASTE 113 GM TP SCH ×4 (09:54→21:00)
[2023-02-07] MEDS: NEOMY/BACITRA/POLYMYXIN B OINT UD PACKET TP SCH ×2 (09:54→21:00)
[2023-02-07] MEDS: NYSTATIN CREAM 30 GM TUBE TOP SCH ×2 (09:54→21:00)
[2023-02-07] MEDS: VITAMINS A AND D OINT 42 GM TUBE TP SCH ×2 (09:55→21:00)
[2023-02-07] MEDS: ASPIRIN 81 MG TAB.CHEW PO SCH (17:41)
[2023-02-07] MEDS: OMEGA-3 FATTY ACIDS/FISH OIL CAPSULE PO SCH (17:42)
[2023-02-07] MEDS: MAGNESIUM OXIDE 400 MG TABLET PO SCH (17:42)
[2023-02-07] MEDS: MULTIVIT, IRON, MIN NO. 8, FA TABLET PO SCH (17:42)
[2023-02-07] MEDS: ATORVASTATIN 20 MG TABLET PO SCH (17:42)
[2023-02-07] MEDS: CHOLECALCIFEROL 1,000 UNIT TABLET PO SCH (17:42)
[2023-02-07] MEDS: BENZONATATE 100 MG CAPSULE PO PRN (18:09)
[2023-02-07] MEDS: LATANOPROST OPHT DROP 2.5 ML BOTTLE EACHEYE SCH (21:00)
[2023-02-08] VITALS (12 sets, daily range): TEMP 97.6–97.8; O2SAT 98–99
[2023-02-08] MEDS: IPRATROPIUM/ALBUTEROL SULFATE 3 ML AMPUL.NEB NEB SCH ×4 (00:34→19:09)
[2023-02-08] MEDS: LEVOTHYROXINE SODIUM 112 MCG TABLET PO SCH (05:39)
[2023-02-08] MEDS: BUDESONIDE 0.5 MG/2 ML NEBU NEB SCH ×2 (08:03→19:46)
[2023-02-08] MEDS: NEOMY/BACITRA/POLYMYXIN B OINT UD PACKET TP SCH ×2 (09:00→21:45)
[2023-02-08] MEDS: VITAMINS A AND D OINT 42 GM TUBE TP SCH ×2 (09:00→21:45)
[2023-02-08] MEDS: HYDROGEN PEROXIDE 3% 118 ML BOTTLE TP SCH ×2 (09:38→19:09)
[2023-02-08] MEDS: MIRALAX 17 GM POWD.PACK PO SCH ×2 (09:59→17:00)
[2023-02-08] MEDS: levETIRAcetam 500 MG/5 ML LIQUID UDC PO SCH ×2 (09:59→17:00)
[2023-02-08] MEDS: TOLTERODINE 1 MG TABLET PO SCH ×2 (09:59→17:00)
[2023-02-08] MEDS: REMEDY ESSENTIAL ZINC PASTE 113 GM TP SCH ×4 (09:59→21:45)
[2023-02-08] MEDS: FERROUS SULFATE 325 MG TABEC PO SCH (09:59)
[2023-02-08] MEDS: DORZOLAMIDE/TIMOLOL OPHT DROP 10 ML BOTTLE EACHEYE SCH ×2 (09:59→17:00)
[2023-02-08] MEDS: NYSTATIN CREAM 30 GM TUBE TOP SCH ×2 (09:59→21:45)
[2023-02-08] MEDS: FOLIC ACID 1 MG TABLET PO SCH (09:59)
[2023-02-08] MEDS: ASPIRIN 81 MG TAB.CHEW PO SCH (18:23)
[2023-02-08] MEDS: ATORVASTATIN 20 MG TABLET PO SCH (18:23)
[2023-02-08] MEDS: CHOLECALCIFEROL 1,000 UNIT TABLET PO SCH (18:23)
[2023-02-08] MEDS: MULTIVIT, IRON, MIN NO. 8, FA TABLET PO SCH (18:23)
[2023-02-08] MEDS: BENZONATATE 100 MG CAPSULE PO PRN (18:23)
[2023-02-08] MEDS: MAGNESIUM OXIDE 400 MG TABLET PO SCH (18:23)
[2023-02-08] MEDS: OMEGA-3 FATTY ACIDS/FISH OIL CAPSULE PO SCH (18:23)
[2023-02-08] MEDS: GUAIFENESIN SUGAR FREE 100 MG/5 ML UDC PO PRN (18:24)
[2023-02-08] MEDS: LATANOPROST OPHT DROP 2.5 ML BOTTLE EACHEYE SCH (21:44)
[2023-02-09] VITALS (11 sets, daily range): TEMP 98.3–98.5; O2SAT 98–99
[2023-02-09] MEDS: IPRATROPIUM/ALBUTEROL SULFATE 3 ML AMPUL.NEB NEB SCH ×4 (00:30→19:10)
[2023-02-09] MEDS: LEVOTHYROXINE SODIUM 112 MCG TABLET PO SCH (06:03)
[2023-02-09] MEDS: HYDROGEN PEROXIDE 3% 118 ML BOTTLE TP SCH ×2 (07:12→19:10)
[2023-02-09] MEDS: BUDESONIDE 0.5 MG/2 ML NEBU NEB SCH ×3 (07:40→23:51)
[2023-02-09] MEDS: DORZOLAMIDE/TIMOLOL OPHT DROP 10 ML BOTTLE EACHEYE SCH ×2 (09:08→16:35)
[2023-02-09] MEDS: TOLTERODINE 1 MG TABLET PO SCH ×2 (09:09→16:35)
[2023-02-09] MEDS: FERROUS SULFATE 325 MG TABEC PO SCH (09:09)
[2023-02-09] MEDS: FOLIC ACID 1 MG TABLET PO SCH (09:10)
[2023-02-09] MEDS: MIRALAX 17 GM POWD.PACK PO SCH ×2 (09:10→16:36)
[2023-02-09] MEDS: levETIRAcetam 500 MG/5 ML LIQUID UDC PO SCH ×2 (09:10→16:35)
[2023-02-09] MEDS: NYSTATIN CREAM 30 GM TUBE TOP SCH ×2 (09:11→21:09)
[2023-02-09] MEDS: VITAMINS A AND D OINT 42 GM TUBE TP SCH ×2 (09:11→21:09)
[2023-02-09] MEDS: NEOMY/BACITRA/POLYMYXIN B OINT UD PACKET TP SCH ×2 (09:11→21:09)
[2023-02-09] MEDS: REMEDY ESSENTIAL ZINC PASTE 113 GM TP SCH ×4 (09:11→21:09)
[2023-02-09] MEDS: CHOLECALCIFEROL 1,000 UNIT TABLET PO SCH (17:02)
[2023-02-09] MEDS: MAGNESIUM OXIDE 400 MG TABLET PO SCH (17:02)
[2023-02-09] MEDS: ATORVASTATIN 20 MG TABLET PO SCH (17:02)
[2023-02-09] MEDS: OMEGA-3 FATTY ACIDS/FISH OIL CAPSULE PO SCH (17:02)
[2023-02-09] MEDS: ASPIRIN 81 MG TAB.CHEW PO SCH (17:02)
[2023-02-09] MEDS: MULTIVIT, IRON, MIN NO. 8, FA TABLET PO SCH (17:02)
[2023-02-09] MEDS: LATANOPROST OPHT DROP 2.5 ML BOTTLE EACHEYE SCH (21:09)
[2023-02-10] VITALS (11 sets, daily range): TEMP 98.6–98.8; O2SAT 98–99
[2023-02-10] MEDS: IPRATROPIUM/ALBUTEROL SULFATE 3 ML AMPUL.NEB NEB SCH ×4 (00:30→19:22)
[2023-02-10] MEDS: LEVOTHYROXINE SODIUM 112 MCG TABLET PO SCH (05:43)
[2023-02-10] MEDS: BUDESONIDE 0.5 MG/2 ML NEBU NEB SCH ×2 (07:39→19:23)
[2023-02-10] MEDS: HYDROGEN PEROXIDE 3% 118 ML BOTTLE TP SCH ×2 (08:17→21:00)
[2023-02-10] MEDS: DORZOLAMIDE/TIMOLOL OPHT DROP 10 ML BOTTLE EACHEYE SCH ×2 (09:14→16:39)
[2023-02-10] MEDS: TOLTERODINE 1 MG TABLET PO SCH ×2 (09:15→16:39)
[2023-02-10] MEDS: MIRALAX 17 GM POWD.PACK PO SCH ×2 (09:16→16:39)
[2023-02-10] MEDS: FERROUS SULFATE 325 MG TABEC PO SCH (09:16)
[2023-02-10] MEDS: FOLIC ACID 1 MG TABLET PO SCH (09:16)
[2023-02-10] MEDS: levETIRAcetam 500 MG/5 ML LIQUID UDC PO SCH ×2 (09:16→16:39)
[2023-02-10] MEDS: NEOMY/BACITRA/POLYMYXIN B OINT UD PACKET TP SCH ×2 (09:17→20:15)
[2023-02-10] MEDS: VITAMINS A AND D OINT 42 GM TUBE TP SCH ×2 (09:17→20:15)
[2023-02-10] MEDS: REMEDY ESSENTIAL ZINC PASTE 113 GM TP SCH ×4 (09:17→20:15)
[2023-02-10] MEDS: NYSTATIN CREAM 30 GM TUBE TOP SCH ×2 (09:17→20:15)
[2023-02-10] MEDS: GUAIFENESIN SUGAR FREE 100 MG/5 ML UDC PO PRN ×2 (09:17→16:41)
[2023-02-10] MEDS: BENZONATATE 100 MG CAPSULE PO PRN ×2 (09:17→16:41)
[2023-02-10] MEDS: OMEGA-3 FATTY ACIDS/FISH OIL CAPSULE PO SCH (17:05)
[2023-02-10] MEDS: ATORVASTATIN 20 MG TABLET PO SCH (17:05)
[2023-02-10] MEDS: ASPIRIN 81 MG TAB.CHEW PO SCH (17:05)
[2023-02-10] MEDS: CHOLECALCIFEROL 1,000 UNIT TABLET PO SCH (17:06)
[2023-02-10] MEDS: MAGNESIUM OXIDE 400 MG TABLET PO SCH (17:06)
[2023-02-10] MEDS: MULTIVIT, IRON, MIN NO. 8, FA TABLET PO SCH (17:06)
[2023-02-10] MEDS: LATANOPROST OPHT DROP 2.5 ML BOTTLE EACHEYE SCH (20:15)
[2023-02-11] VITALS (10 sets, daily range): TEMP 98–98.3; O2SAT 97–99
[2023-02-11] MEDS: IPRATROPIUM/ALBUTEROL SULFATE 3 ML AMPUL.NEB NEB SCH ×4 (01:07→19:20)
[2023-02-11] MEDS: LEVOTHYROXINE SODIUM 112 MCG TABLET PO SCH (05:52)
[2023-02-11] MEDS: HYDROGEN PEROXIDE 3% 118 ML BOTTLE TP SCH ×2 (08:25→19:20)
[2023-02-11] MEDS: BUDESONIDE 0.5 MG/2 ML NEBU NEB SCH ×2 (08:25→19:20)
[2023-02-11] MEDS: TOLTERODINE 1 MG TABLET PO SCH ×2 (09:36→16:52)
[2023-02-11] MEDS: FERROUS SULFATE 325 MG TABEC PO SCH (09:36)
[2023-02-11] MEDS: DORZOLAMIDE/TIMOLOL OPHT DROP 10 ML BOTTLE EACHEYE SCH ×2 (09:36→16:57)
[2023-02-11] MEDS: MIRALAX 17 GM POWD.PACK PO SCH ×2 (09:37→16:53)
[2023-02-11] MEDS: VITAMINS A AND D OINT 42 GM TUBE TP SCH ×2 (09:37→21:13)
[2023-02-11] MEDS: NYSTATIN CREAM 30 GM TUBE TOP SCH ×2 (09:37→21:13)
[2023-02-11] MEDS: levETIRAcetam 500 MG/5 ML LIQUID UDC PO SCH ×2 (09:37→16:52)
[2023-02-11] MEDS: FOLIC ACID 1 MG TABLET PO SCH (09:37)
[2023-02-11] MEDS: REMEDY ESSENTIAL ZINC PASTE 113 GM TP SCH ×4 (09:37→21:13)
[2023-02-11] MEDS: BENZONATATE 100 MG CAPSULE PO PRN ×2 (09:39→16:55)
[2023-02-11] MEDS: GUAIFENESIN SUGAR FREE 100 MG/5 ML UDC PO PRN ×2 (09:39→16:54)
[2023-02-11] MEDS: MAGNESIUM OXIDE 400 MG TABLET PO SCH (17:02)
[2023-02-11] MEDS: MULTIVIT, IRON, MIN NO. 8, FA TABLET PO SCH (17:02)
[2023-02-11] MEDS: CHOLECALCIFEROL 1,000 UNIT TABLET PO SCH (17:02)
[2023-02-11] MEDS: ATORVASTATIN 20 MG TABLET PO SCH (17:02)
[2023-02-11] MEDS: ASPIRIN 81 MG TAB.CHEW PO SCH (17:02)
[2023-02-11] MEDS: OMEGA-3 FATTY ACIDS/FISH OIL CAPSULE PO SCH (17:02)
[2023-02-11] MEDS: LATANOPROST OPHT DROP 2.5 ML BOTTLE EACHEYE SCH (21:13)
[2023-02-12] VITALS (12 sets, daily range): TEMP 97.8–98; O2SAT 97–99
[2023-02-12] MEDS: IPRATROPIUM/ALBUTEROL SULFATE 3 ML AMPUL.NEB NEB SCH ×4 (01:29→19:10)
[2023-02-12] MEDS: LEVOTHYROXINE SODIUM 112 MCG TABLET PO SCH (05:56)
[2023-02-12] MEDS: BUDESONIDE 0.5 MG/2 ML NEBU NEB SCH ×2 (08:00→19:42)
[2023-02-12] MEDS: DORZOLAMIDE/TIMOLOL OPHT DROP 10 ML BOTTLE EACHEYE SCH ×2 (09:10→16:48)
[2023-02-12] MEDS: TOLTERODINE 1 MG TABLET PO SCH ×2 (09:10→16:50)
[2023-02-12] MEDS: VITAMINS A AND D OINT 42 GM TUBE TP SCH ×2 (09:11→21:18)
[2023-02-12] MEDS: REMEDY ESSENTIAL ZINC PASTE 113 GM TP SCH ×4 (09:11→21:17)
[2023-02-12] MEDS: NYSTATIN CREAM 30 GM TUBE TOP SCH ×2 (09:11→21:17)
[2023-02-12] MEDS: levETIRAcetam 500 MG/5 ML LIQUID UDC PO SCH ×2 (09:11→16:50)
[2023-02-12] MEDS: MIRALAX 17 GM POWD.PACK PO SCH ×2 (09:11→16:51)
[2023-02-12] MEDS: FOLIC ACID 1 MG TABLET PO SCH (09:11)
[2023-02-12] MEDS: FERROUS SULFATE 325 MG TABEC PO SCH (09:11)
[2023-02-12] MEDS: BENZONATATE 100 MG CAPSULE PO PRN (09:12)
[2023-02-12] MEDS: GUAIFENESIN SUGAR FREE 100 MG/5 ML UDC PO PRN (09:12)
[2023-02-12] MEDS: HYDROGEN PEROXIDE 3% 118 ML BOTTLE TP SCH ×2 (09:15→19:10)
[2023-02-12] MEDS: MULTIVIT, IRON, MIN NO. 8, FA TABLET PO SCH (17:01)
[2023-02-12] MEDS: CHOLECALCIFEROL 1,000 UNIT TABLET PO SCH (17:01)
[2023-02-12] MEDS: OMEGA-3 FATTY ACIDS/FISH OIL CAPSULE PO SCH (17:01)
[2023-02-12] MEDS: ATORVASTATIN 20 MG TABLET PO SCH (17:01)
[2023-02-12] MEDS: MAGNESIUM OXIDE 400 MG TABLET PO SCH (17:01)
[2023-02-12] MEDS: ASPIRIN 81 MG TAB.CHEW PO SCH (17:01)
[2023-02-12] MEDS: LATANOPROST OPHT DROP 2.5 ML BOTTLE EACHEYE SCH (21:17)
[2023-02-13] VITALS (11 sets, daily range): TEMP 97.7; O2SAT 97–99
[2023-02-13] MEDS: BENZONATATE 100 MG CAPSULE PO PRN ×3 (00:30→23:00)
[2023-02-13] MEDS: IPRATROPIUM/ALBUTEROL SULFATE 3 ML AMPUL.NEB NEB SCH ×4 (00:32→19:10)
[2023-02-13] MEDS: LEVOTHYROXINE SODIUM 112 MCG TABLET PO SCH (05:51)
[2023-02-13] MEDS: HYDROGEN PEROXIDE 3% 118 ML BOTTLE TP SCH ×2 (07:17→19:10)
[2023-02-13] MEDS: BUDESONIDE 0.5 MG/2 ML NEBU NEB SCH ×2 (07:17→20:11)
[2023-02-13] MEDS: DORZOLAMIDE/TIMOLOL OPHT DROP 10 ML BOTTLE EACHEYE SCH ×2 (09:27→16:34)
[2023-02-13] MEDS: MIRALAX 17 GM POWD.PACK PO SCH ×2 (09:29→16:35)
[2023-02-13] MEDS: FOLIC ACID 1 MG TABLET PO SCH (09:29)
[2023-02-13] MEDS: levETIRAcetam 500 MG/5 ML LIQUID UDC PO SCH ×2 (09:29→16:35)
[2023-02-13] MEDS: TOLTERODINE 1 MG TABLET PO SCH ×2 (09:29→16:35)
[2023-02-13] MEDS: FERROUS SULFATE 325 MG TABEC PO SCH (09:29)
[2023-02-13] MEDS: NYSTATIN CREAM 30 GM TUBE TOP SCH ×2 (09:30→21:20)
[2023-02-13] MEDS: REMEDY ESSENTIAL ZINC PASTE 113 GM TP SCH ×4 (09:31→21:21)
[2023-02-13] MEDS: VITAMINS A AND D OINT 42 GM TUBE TP SCH ×2 (09:31→21:21)
[2023-02-13] MEDS: OMEGA-3 FATTY ACIDS/FISH OIL CAPSULE PO SCH (17:11)
[2023-02-13] MEDS: CHOLECALCIFEROL 1,000 UNIT TABLET PO SCH (17:11)
[2023-02-13] MEDS: ATORVASTATIN 20 MG TABLET PO SCH (17:11)
[2023-02-13] MEDS: MAGNESIUM OXIDE 400 MG TABLET PO SCH (17:11)
[2023-02-13] MEDS: ASPIRIN 81 MG TAB.CHEW PO SCH (17:11)
[2023-02-13] MEDS: MULTIVIT, IRON, MIN NO. 8, FA TABLET PO SCH (17:11)
[2023-02-13] MEDS: LATANOPROST OPHT DROP 2.5 ML BOTTLE EACHEYE SCH (21:20)
[2023-02-14] VITALS (10 sets, daily range): TEMP 97.5–97.9; O2SAT 97–99
[2023-02-14] MEDS: IPRATROPIUM/ALBUTEROL SULFATE 3 ML AMPUL.NEB NEB SCH ×4 (00:30→19:07)
[2023-02-14] MEDS: LEVOTHYROXINE SODIUM 112 MCG TABLET PO SCH (05:46)
[2023-02-14] MEDS: HYDROGEN PEROXIDE 3% 118 ML BOTTLE TP SCH ×2 (07:56→21:04)
[2023-02-14] MEDS: BUDESONIDE 0.5 MG/2 ML NEBU NEB SCH ×2 (07:56→19:07)
[2023-02-14] MEDS: DORZOLAMIDE/TIMOLOL OPHT DROP 10 ML BOTTLE EACHEYE SCH ×2 (09:30→17:23)
[2023-02-14] MEDS: FOLIC ACID 1 MG TABLET PO SCH (09:31)
[2023-02-14] MEDS: TOLTERODINE 1 MG TABLET PO SCH ×2 (09:31→17:23)
[2023-02-14] MEDS: FERROUS SULFATE 325 MG TABEC PO SCH (09:31)
[2023-02-14] MEDS: levETIRAcetam 500 MG/5 ML LIQUID UDC PO SCH ×2 (09:32→17:23)
[2023-02-14] MEDS: MIRALAX 17 GM POWD.PACK PO SCH ×2 (09:33→17:23)
[2023-02-14] MEDS: NYSTATIN CREAM 30 GM TUBE TOP SCH ×2 (09:34→20:52)
[2023-02-14] MEDS: VITAMINS A AND D OINT 42 GM TUBE TP SCH ×2 (09:34→20:53)
[2023-02-14] MEDS: REMEDY ESSENTIAL ZINC PASTE 113 GM TP SCH ×4 (09:34→20:52)
[2023-02-14] MEDS: BENZONATATE 100 MG CAPSULE PO PRN (09:35)
[2023-02-14] MEDS: OMEGA-3 FATTY ACIDS/FISH OIL CAPSULE PO SCH (17:23)
[2023-02-14] MEDS: ATORVASTATIN 20 MG TABLET PO SCH (17:23)
[2023-02-14] MEDS: ASPIRIN 81 MG TAB.CHEW PO SCH (17:23)
[2023-02-14] MEDS: MULTIVIT, IRON, MIN NO. 8, FA TABLET PO SCH (17:23)
[2023-02-14] MEDS: MAGNESIUM OXIDE 400 MG TABLET PO SCH (17:23)
[2023-02-14] MEDS: CHOLECALCIFEROL 1,000 UNIT TABLET PO SCH (17:23)
[2023-02-14] MEDS: LATANOPROST OPHT DROP 2.5 ML BOTTLE EACHEYE SCH (20:52)
[2023-02-15] VITALS (10 sets, daily range): TEMP 98–98.4; O2SAT 97–99
[2023-02-15] MEDS: IPRATROPIUM/ALBUTEROL SULFATE 3 ML AMPUL.NEB NEB SCH ×4 (02:02→19:07)
[2023-02-15] MEDS: LEVOTHYROXINE SODIUM 112 MCG TABLET PO SCH (05:48)
[2023-02-15] MEDS: BUDESONIDE 0.5 MG/2 ML NEBU NEB SCH ×2 (07:39→19:07)
[2023-02-15] MEDS: HYDROGEN PEROXIDE 3% 118 ML BOTTLE TP SCH ×2 (08:34→21:03)
[2023-02-15] MEDS: DORZOLAMIDE/TIMOLOL OPHT DROP 10 ML BOTTLE EACHEYE SCH ×2 (09:21→16:51)
[2023-02-15] MEDS: FERROUS SULFATE 325 MG TABEC PO SCH (09:24)
[2023-02-15] MEDS: TOLTERODINE 1 MG TABLET PO SCH ×2 (09:24→16:51)
[2023-02-15] MEDS: levETIRAcetam 500 MG/5 ML LIQUID UDC PO SCH ×2 (09:24→16:51)
[2023-02-15] MEDS: FOLIC ACID 1 MG TABLET PO SCH (09:24)
[2023-02-15] MEDS: VITAMINS A AND D OINT 42 GM TUBE TP SCH ×2 (09:26→20:59)
[2023-02-15] MEDS: REMEDY ESSENTIAL ZINC PASTE 113 GM TP SCH ×4 (09:26→20:58)
[2023-02-15] MEDS: NYSTATIN CREAM 30 GM TUBE TOP SCH ×2 (09:26→20:58)
[2023-02-15] MEDS: MIRALAX 17 GM POWD.PACK PO SCH ×2 (09:26→16:53)
[2023-02-15] MEDS: BENZONATATE 100 MG CAPSULE PO PRN (16:56)
[2023-02-15] MEDS: ATORVASTATIN 20 MG TABLET PO SCH (17:24)
[2023-02-15] MEDS: MAGNESIUM OXIDE 400 MG TABLET PO SCH (17:24)
[2023-02-15] MEDS: CHOLECALCIFEROL 1,000 UNIT TABLET PO SCH (17:24)
[2023-02-15] MEDS: OMEGA-3 FATTY ACIDS/FISH OIL CAPSULE PO SCH (17:24)
[2023-02-15] MEDS: ASPIRIN 81 MG TAB.CHEW PO SCH (17:24)
[2023-02-15] MEDS: MULTIVIT, IRON, MIN NO. 8, FA TABLET PO SCH (17:24)
[2023-02-15] MEDS: LATANOPROST OPHT DROP 2.5 ML BOTTLE EACHEYE SCH (20:58)
[2023-02-16] VITALS (10 sets, daily range): BP systolic 119; BP diastolic 53; TEMP 98.4–98.8; O2SAT 97–100
[2023-02-16] MEDS: IPRATROPIUM/ALBUTEROL SULFATE 3 ML AMPUL.NEB NEB SCH ×4 (00:54→19:54)
[2023-02-16] MEDS: LEVOTHYROXINE SODIUM 112 MCG TABLET PO SCH (05:36)
[2023-02-16] MEDS: BUDESONIDE 0.5 MG/2 ML NEBU NEB SCH ×2 (07:37→19:56)
[2023-02-16] MEDS: HYDROGEN PEROXIDE 3% 118 ML BOTTLE TP SCH ×2 (08:20→19:55)
[2023-02-16] MEDS: FERROUS SULFATE 325 MG TABEC PO SCH (09:17)
[2023-02-16] MEDS: levETIRAcetam 500 MG/5 ML LIQUID UDC PO SCH ×2 (09:17→17:15)
[2023-02-16] MEDS: BENZONATATE 100 MG CAPSULE PO PRN (09:17)
[2023-02-16] MEDS: GUAIFENESIN SUGAR FREE 100 MG/5 ML UDC PO PRN (09:17)
[2023-02-16] MEDS: MIRALAX 17 GM POWD.PACK PO SCH ×2 (09:17→17:15)
[2023-02-16] MEDS: TOLTERODINE 1 MG TABLET PO SCH ×2 (09:17→17:10)
[2023-02-16] MEDS: FOLIC ACID 1 MG TABLET PO SCH (09:17)
[2023-02-16] MEDS: DORZOLAMIDE/TIMOLOL OPHT DROP 10 ML BOTTLE EACHEYE SCH ×2 (09:17→17:10)
[2023-02-16] MEDS: NYSTATIN CREAM 30 GM TUBE TOP SCH ×2 (09:17→20:18)
[2023-02-16] MEDS: REMEDY ESSENTIAL ZINC PASTE 113 GM TP SCH ×4 (09:17→20:18)
[2023-02-16] MEDS: VITAMINS A AND D OINT 42 GM TUBE TP SCH ×2 (09:17→20:18)
[2023-02-16] MEDS: OMEGA-3 FATTY ACIDS/FISH OIL CAPSULE PO SCH (17:15)
[2023-02-16] MEDS: CHOLECALCIFEROL 1,000 UNIT TABLET PO SCH (17:15)
[2023-02-16] MEDS: MULTIVIT, IRON, MIN NO. 8, FA TABLET PO SCH (17:15)
[2023-02-16] MEDS: ASPIRIN 81 MG TAB.CHEW PO SCH (17:15)
[2023-02-16] MEDS: MAGNESIUM OXIDE 400 MG TABLET PO SCH (17:15)
[2023-02-16] MEDS: ATORVASTATIN 20 MG TABLET PO SCH (17:15)
[2023-02-16] MEDS: LATANOPROST OPHT DROP 2.5 ML BOTTLE EACHEYE SCH (20:17)
[2023-02-17] VITALS (10 sets, daily range): TEMP 97.5–98.2; O2SAT 97–99
[2023-02-17] MEDS: IPRATROPIUM/ALBUTEROL SULFATE 3 ML AMPUL.NEB NEB SCH ×4 (01:12→19:25)
[2023-02-17] MEDS: LEVOTHYROXINE SODIUM 112 MCG TABLET PO SCH (05:35)
[2023-02-17] MEDS: BUDESONIDE 0.5 MG/2 ML NEBU NEB SCH ×2 (07:42→19:25)
[2023-02-17] MEDS: HYDROGEN PEROXIDE 3% 118 ML BOTTLE TP SCH ×2 (08:41→19:25)
[2023-02-17] MEDS: TOLTERODINE 1 MG TABLET PO SCH ×2 (09:21→17:36)
[2023-02-17] MEDS: MIRALAX 17 GM POWD.PACK PO SCH ×2 (09:21→17:37)
[2023-02-17] MEDS: DORZOLAMIDE/TIMOLOL OPHT DROP 10 ML BOTTLE EACHEYE SCH ×2 (09:21→17:36)
[2023-02-17] MEDS: FERROUS SULFATE 325 MG TABEC PO SCH (09:21)
[2023-02-17] MEDS: NYSTATIN CREAM 30 GM TUBE TOP SCH ×2 (09:21→20:49)
[2023-02-17] MEDS: VITAMINS A AND D OINT 42 GM TUBE TP SCH ×2 (09:21→20:49)
[2023-02-17] MEDS: FOLIC ACID 1 MG TABLET PO SCH (09:21)
[2023-02-17] MEDS: REMEDY ESSENTIAL ZINC PASTE 113 GM TP SCH ×4 (09:21→20:49)
[2023-02-17] MEDS: levETIRAcetam 500 MG/5 ML LIQUID UDC PO SCH ×2 (09:21→17:36)
[2023-02-17] MEDS: OMEGA-3 FATTY ACIDS/FISH OIL CAPSULE PO SCH (17:37)
[2023-02-17] MEDS: MAGNESIUM OXIDE 400 MG TABLET PO SCH (17:37)
[2023-02-17] MEDS: ATORVASTATIN 20 MG TABLET PO SCH (17:37)
[2023-02-17] MEDS: MULTIVIT, IRON, MIN NO. 8, FA TABLET PO SCH (17:37)
[2023-02-17] MEDS: CHOLECALCIFEROL 1,000 UNIT TABLET PO SCH (17:37)
[2023-02-17] MEDS: ASPIRIN 81 MG TAB.CHEW PO SCH (17:37)
[2023-02-17] MEDS: LATANOPROST OPHT DROP 2.5 ML BOTTLE EACHEYE SCH (20:49)
[2023-02-18] VITALS (10 sets, daily range): TEMP 97.8–98.2; O2SAT 97–99
[2023-02-18] MEDS: IPRATROPIUM/ALBUTEROL SULFATE 3 ML AMPUL.NEB NEB SCH ×4 (01:39→19:11)
[2023-02-18] MEDS: LEVOTHYROXINE SODIUM 112 MCG TABLET PO SCH (06:08)
[2023-02-18] MEDS: HYDROGEN PEROXIDE 3% 118 ML BOTTLE TP SCH ×2 (08:03→19:11)
[2023-02-18] MEDS: BUDESONIDE 0.5 MG/2 ML NEBU NEB SCH ×2 (08:03→19:11)
[2023-02-18] MEDS: DORZOLAMIDE/TIMOLOL OPHT DROP 10 ML BOTTLE EACHEYE SCH ×2 (09:17→17:25)
[2023-02-18] MEDS: TOLTERODINE 1 MG TABLET PO SCH ×2 (09:18→17:25)
[2023-02-18] MEDS: FERROUS SULFATE 325 MG TABEC PO SCH (09:19)
[2023-02-18] MEDS: FOLIC ACID 1 MG TABLET PO SCH (09:19)
[2023-02-18] MEDS: MIRALAX 17 GM POWD.PACK PO SCH ×2 (09:20→17:26)
[2023-02-18] MEDS: levETIRAcetam 500 MG/5 ML LIQUID UDC PO SCH ×2 (09:20→17:25)
[2023-02-18] MEDS: VITAMINS A AND D OINT 42 GM TUBE TP SCH ×2 (09:21→21:11)
[2023-02-18] MEDS: REMEDY ESSENTIAL ZINC PASTE 113 GM TP SCH ×4 (09:21→21:11)
[2023-02-18] MEDS: GUAIFENESIN SUGAR FREE 100 MG/5 ML UDC PO PRN ×2 (09:21→17:33)
[2023-02-18] MEDS: NYSTATIN CREAM 30 GM TUBE TOP SCH ×2 (09:21→21:11)
[2023-02-18] MEDS: BENZONATATE 100 MG CAPSULE PO PRN (09:22)
[2023-02-18] MEDS: ASPIRIN 81 MG TAB.CHEW PO SCH (17:26)
[2023-02-18] MEDS: OMEGA-3 FATTY ACIDS/FISH OIL CAPSULE PO SCH (17:30)
[2023-02-18] MEDS: MAGNESIUM OXIDE 400 MG TABLET PO SCH (17:30)
[2023-02-18] MEDS: ATORVASTATIN 20 MG TABLET PO SCH (17:30)
[2023-02-18] MEDS: MULTIVIT, IRON, MIN NO. 8, FA TABLET PO SCH (17:31)
[2023-02-18] MEDS: CHOLECALCIFEROL 1,000 UNIT TABLET PO SCH (17:31)
[2023-02-18] MEDS: LATANOPROST OPHT DROP 2.5 ML BOTTLE EACHEYE SCH (21:00)
[2023-02-19] VITALS (10 sets, daily range): TEMP 98.2–98.5; O2SAT 97–99
[2023-02-19] MEDS: IPRATROPIUM/ALBUTEROL SULFATE 3 ML AMPUL.NEB NEB SCH ×4 (01:03→19:00)
[2023-02-19] MEDS: LEVOTHYROXINE SODIUM 112 MCG TABLET PO SCH (06:11)
[2023-02-19] MEDS: BUDESONIDE 0.5 MG/2 ML NEBU NEB SCH ×2 (07:21→19:00)
[2023-02-19] MEDS: HYDROGEN PEROXIDE 3% 118 ML BOTTLE TP SCH ×2 (07:21→19:00)
[2023-02-19] MEDS: REMEDY ESSENTIAL ZINC PASTE 113 GM TP SCH ×4 (09:00→20:48)
[2023-02-19] MEDS: VITAMINS A AND D OINT 42 GM TUBE TP SCH ×2 (09:00→20:48)
[2023-02-19] MEDS: NYSTATIN CREAM 30 GM TUBE TOP SCH ×2 (09:00→20:48)
[2023-02-19] MEDS: DORZOLAMIDE/TIMOLOL OPHT DROP 10 ML BOTTLE EACHEYE SCH ×2 (09:01→17:59)
[2023-02-19] MEDS: FERROUS SULFATE 325 MG TABEC PO SCH (09:02)
[2023-02-19] MEDS: TOLTERODINE 1 MG TABLET PO SCH ×2 (09:02→17:00)
[2023-02-19] MEDS: FOLIC ACID 1 MG TABLET PO SCH (09:03)
[2023-02-19] MEDS: levETIRAcetam 500 MG/5 ML LIQUID UDC PO SCH ×2 (09:03→17:00)
[2023-02-19] MEDS: MIRALAX 17 GM POWD.PACK PO SCH ×2 (09:04→17:00)
[2023-02-19] MEDS: GUAIFENESIN SUGAR FREE 100 MG/5 ML UDC PO PRN ×2 (09:07→18:11)
[2023-02-19] MEDS: BENZONATATE 100 MG CAPSULE PO PRN ×2 (09:07→18:12)
[2023-02-19] MEDS: ASPIRIN 81 MG TAB.CHEW PO SCH (18:04)
[2023-02-19] MEDS: OMEGA-3 FATTY ACIDS/FISH OIL CAPSULE PO SCH (18:05)
[2023-02-19] MEDS: MAGNESIUM OXIDE 400 MG TABLET PO SCH (18:06)
[2023-02-19] MEDS: ATORVASTATIN 20 MG TABLET PO SCH (18:06)
[2023-02-19] MEDS: MULTIVIT, IRON, MIN NO. 8, FA TABLET PO SCH (18:07)
[2023-02-19] MEDS: CHOLECALCIFEROL 1,000 UNIT TABLET PO SCH (18:08)
[2023-02-19] MEDS: LATANOPROST OPHT DROP 2.5 ML BOTTLE EACHEYE SCH (20:47)
[2023-02-20] VITALS (10 sets, daily range): TEMP 97.8–97.9; O2SAT 97–99
[2023-02-20] MEDS: IPRATROPIUM/ALBUTEROL SULFATE 3 ML AMPUL.NEB NEB SCH ×4 (00:57→19:18)
[2023-02-20] MEDS: LEVOTHYROXINE SODIUM 112 MCG TABLET PO SCH (06:17)
[2023-02-20] MEDS: BUDESONIDE 0.5 MG/2 ML NEBU NEB SCH ×2 (07:44→19:18)
[2023-02-20] MEDS: HYDROGEN PEROXIDE 3% 118 ML BOTTLE TP SCH ×2 (08:31→19:18)
[2023-02-20] MEDS: DORZOLAMIDE/TIMOLOL OPHT DROP 10 ML BOTTLE EACHEYE SCH ×2 (09:37→17:00)
[2023-02-20] MEDS: FERROUS SULFATE 325 MG TABEC PO SCH (09:38)
[2023-02-20] MEDS: TOLTERODINE 1 MG TABLET PO SCH ×2 (09:38→17:56)
[2023-02-20] MEDS: levETIRAcetam 500 MG/5 ML LIQUID UDC PO SCH ×2 (09:39→17:58)
[2023-02-20] MEDS: FOLIC ACID 1 MG TABLET PO SCH (09:39)
[2023-02-20] MEDS: REMEDY ESSENTIAL ZINC PASTE 113 GM TP SCH ×2 (09:40→20:57)
[2023-02-20] MEDS: VITAMINS A AND D OINT 42 GM TUBE TP SCH ×2 (09:40→20:57)
[2023-02-20] MEDS: MIRALAX 17 GM POWD.PACK PO SCH ×2 (09:40→17:59)
[2023-02-20] MEDS: GUAIFENESIN SUGAR FREE 100 MG/5 ML UDC PO PRN ×2 (09:41→18:02)
[2023-02-20] MEDS: BENZONATATE 100 MG CAPSULE PO PRN (09:42)
[2023-02-20] MEDS: ASPIRIN 81 MG TAB.CHEW PO SCH (17:59)
[2023-02-20] MEDS: MAGNESIUM OXIDE 400 MG TABLET PO SCH (18:00)
[2023-02-20] MEDS: ATORVASTATIN 20 MG TABLET PO SCH (18:00)
[2023-02-20] MEDS: OMEGA-3 FATTY ACIDS/FISH OIL CAPSULE PO SCH (18:00)
[2023-02-20] MEDS: MULTIVIT, IRON, MIN NO. 8, FA TABLET PO SCH (18:01)
[2023-02-20] MEDS: CHOLECALCIFEROL 1,000 UNIT TABLET PO SCH (18:01)
[2023-02-20] MEDS: LATANOPROST OPHT DROP 2.5 ML BOTTLE EACHEYE SCH (20:56)
[2023-02-21] VITALS (10 sets, daily range): TEMP 97.8; O2SAT 97–99
[2023-02-21] MEDS: IPRATROPIUM/ALBUTEROL SULFATE 3 ML AMPUL.NEB NEB SCH ×4 (00:54→19:10)
[2023-02-21] MEDS: LEVOTHYROXINE SODIUM 112 MCG TABLET PO SCH (06:05)
[2023-02-21] MEDS: HYDROGEN PEROXIDE 3% 118 ML BOTTLE TP SCH ×2 (08:04→21:20)
[2023-02-21] MEDS: BUDESONIDE 0.5 MG/2 ML NEBU NEB SCH ×2 (08:04→19:10)
[2023-02-21] MEDS: DORZOLAMIDE/TIMOLOL OPHT DROP 10 ML BOTTLE EACHEYE SCH ×2 (09:16→17:18)
[2023-02-21] MEDS: TOLTERODINE 1 MG TABLET PO SCH ×2 (09:16→17:21)
[2023-02-21] MEDS: FERROUS SULFATE 325 MG TABEC PO SCH (09:16)
[2023-02-21] MEDS: levETIRAcetam 500 MG/5 ML LIQUID UDC PO SCH ×2 (09:17→17:21)
[2023-02-21] MEDS: FOLIC ACID 1 MG TABLET PO SCH (09:17)
[2023-02-21] MEDS: VITAMINS A AND D OINT 42 GM TUBE TP SCH ×2 (09:18→21:16)
[2023-02-21] MEDS: REMEDY ESSENTIAL ZINC PASTE 113 GM TP SCH ×2 (09:18→21:16)
[2023-02-21] MEDS: MIRALAX 17 GM POWD.PACK PO SCH ×2 (09:18→17:21)
[2023-02-21] MEDS: BENZONATATE 100 MG CAPSULE PO PRN ×2 (09:19→17:50)
[2023-02-21] MEDS: GUAIFENESIN SUGAR FREE 100 MG/5 ML UDC PO PRN ×2 (09:19→17:50)
[2023-02-21] MEDS: ASPIRIN 81 MG TAB.CHEW PO SCH (17:22)
[2023-02-21] MEDS: MAGNESIUM OXIDE 400 MG TABLET PO SCH (17:23)
[2023-02-21] MEDS: ATORVASTATIN 20 MG TABLET PO SCH (17:23)
[2023-02-21] MEDS: CHOLECALCIFEROL 1,000 UNIT TABLET PO SCH (17:24)
[2023-02-21] MEDS: MULTIVIT, IRON, MIN NO. 8, FA TABLET PO SCH (17:24)
[2023-02-21] MEDS: OMEGA-3 FATTY ACIDS/FISH OIL CAPSULE PO SCH (17:27)
[2023-02-21] MEDS: LATANOPROST OPHT DROP 2.5 ML BOTTLE EACHEYE SCH (21:16)
[2023-02-22] VITALS (10 sets, daily range): TEMP 97.7–98.7; O2SAT 97–99
[2023-02-22] MEDS: IPRATROPIUM/ALBUTEROL SULFATE 3 ML AMPUL.NEB NEB SCH ×4 (00:52→18:33)
[2023-02-22] MEDS: LEVOTHYROXINE SODIUM 112 MCG TABLET PO SCH (05:22)
[2023-02-22] MEDS: BUDESONIDE 0.5 MG/2 ML NEBU NEB SCH ×2 (07:46→18:33)
[2023-02-22] MEDS: HYDROGEN PEROXIDE 3% 118 ML BOTTLE TP SCH ×2 (07:46→20:54)
[2023-02-22] MEDS: DORZOLAMIDE/TIMOLOL OPHT DROP 10 ML BOTTLE EACHEYE SCH ×2 (09:21→17:00)
[2023-02-22] MEDS: TOLTERODINE 1 MG TABLET PO SCH ×2 (09:21→17:00)
[2023-02-22] MEDS: FERROUS SULFATE 325 MG TABEC PO SCH (09:22)
[2023-02-22] MEDS: FOLIC ACID 1 MG TABLET PO SCH (09:22)
[2023-02-22] MEDS: levETIRAcetam 500 MG/5 ML LIQUID UDC PO SCH ×2 (09:23→17:00)
[2023-02-22] MEDS: REMEDY ESSENTIAL ZINC PASTE 113 GM TP SCH ×2 (09:24→20:33)
[2023-02-22] MEDS: MIRALAX 17 GM POWD.PACK PO SCH ×2 (09:24→17:00)
[2023-02-22] MEDS: VITAMINS A AND D OINT 42 GM TUBE TP SCH ×2 (09:25→20:32)
[2023-02-22] MEDS: GUAIFENESIN SUGAR FREE 100 MG/5 ML UDC PO PRN ×2 (09:26→18:42)
[2023-02-22] MEDS: BENZONATATE 100 MG CAPSULE PO PRN ×2 (09:27→18:42)
[2023-02-22] MEDS: ASPIRIN 81 MG TAB.CHEW PO SCH (18:03)
[2023-02-22] MEDS: MAGNESIUM OXIDE 400 MG TABLET PO SCH (18:04)
[2023-02-22] MEDS: MULTIVIT, IRON, MIN NO. 8, FA TABLET PO SCH (18:04)
[2023-02-22] MEDS: ATORVASTATIN 20 MG TABLET PO SCH (18:04)
[2023-02-22] MEDS: OMEGA-3 FATTY ACIDS/FISH OIL CAPSULE PO SCH (18:04)
[2023-02-22] MEDS: CHOLECALCIFEROL 1,000 UNIT TABLET PO SCH (18:05)
[2023-02-22] MEDS: LATANOPROST OPHT DROP 2.5 ML BOTTLE EACHEYE SCH (20:32)
[2023-02-23] VITALS (10 sets, daily range): TEMP 97.1–97.6; O2SAT 97–99
[2023-02-23] MEDS: IPRATROPIUM/ALBUTEROL SULFATE 3 ML AMPUL.NEB NEB SCH ×4 (00:35→20:27)
[2023-02-23] MEDS: LEVOTHYROXINE SODIUM 112 MCG TABLET PO SCH (05:53)
[2023-02-23] MEDS: BUDESONIDE 0.5 MG/2 ML NEBU NEB SCH ×2 (07:35→20:27)
[2023-02-23] MEDS: HYDROGEN PEROXIDE 3% 118 ML BOTTLE TP SCH ×2 (07:35→20:27)
[2023-02-23] MEDS: REMEDY ESSENTIAL ZINC PASTE 113 GM TP SCH ×2 (09:38→20:19)
[2023-02-23] MEDS: MIRALAX 17 GM POWD.PACK PO SCH ×2 (09:38→17:24)
[2023-02-23] MEDS: FERROUS SULFATE 325 MG TABEC PO SCH (09:38)
[2023-02-23] MEDS: levETIRAcetam 500 MG/5 ML LIQUID UDC PO SCH ×2 (09:38→17:24)
[2023-02-23] MEDS: DORZOLAMIDE/TIMOLOL OPHT DROP 10 ML BOTTLE EACHEYE SCH ×2 (09:38→17:24)
[2023-02-23] MEDS: VITAMINS A AND D OINT 42 GM TUBE TP SCH ×2 (09:38→20:19)
[2023-02-23] MEDS: FOLIC ACID 1 MG TABLET PO SCH (09:38)
[2023-02-23] MEDS: TOLTERODINE 1 MG TABLET PO SCH ×2 (09:38→17:24)
[2023-02-23] MEDS: MAGNESIUM OXIDE 400 MG TABLET PO SCH (17:24)
[2023-02-23] MEDS: ATORVASTATIN 20 MG TABLET PO SCH (17:24)
[2023-02-23] MEDS: ASPIRIN 81 MG TAB.CHEW PO SCH (17:24)
[2023-02-23] MEDS: CHOLECALCIFEROL 1,000 UNIT TABLET PO SCH (17:24)
[2023-02-23] MEDS: MULTIVIT, IRON, MIN NO. 8, FA TABLET PO SCH (17:24)
[2023-02-23] MEDS: OMEGA-3 FATTY ACIDS/FISH OIL CAPSULE PO SCH (17:24)
[2023-02-23] MEDS: BENZONATATE 100 MG CAPSULE PO PRN (17:57)
[2023-02-23] MEDS: GUAIFENESIN SUGAR FREE 100 MG/5 ML UDC PO PRN (17:57)
[2023-02-23] MEDS: LATANOPROST OPHT DROP 2.5 ML BOTTLE EACHEYE SCH (20:19)
[2023-02-24] VITALS (10 sets, daily range): TEMP 98.1–98.2; O2SAT 98–99
[2023-02-24] MEDS: IPRATROPIUM/ALBUTEROL SULFATE 3 ML AMPUL.NEB NEB SCH ×4 (00:53→19:18)
[2023-02-24] MEDS: LEVOTHYROXINE SODIUM 112 MCG TABLET PO SCH (05:49)
[2023-02-24] MEDS: BUDESONIDE 0.5 MG/2 ML NEBU NEB SCH ×2 (07:44→19:18)
[2023-02-24] MEDS: HYDROGEN PEROXIDE 3% 118 ML BOTTLE TP SCH ×2 (08:19→19:18)
[2023-02-24] MEDS: REMEDY ESSENTIAL ZINC PASTE 113 GM TP SCH ×2 (09:15→20:41)
[2023-02-24] MEDS: FERROUS SULFATE 325 MG TABEC PO SCH (09:15)
[2023-02-24] MEDS: VITAMINS A AND D OINT 42 GM TUBE TP SCH ×2 (09:15→20:41)
[2023-02-24] MEDS: TOLTERODINE 1 MG TABLET PO SCH ×2 (09:15→17:00)
[2023-02-24] MEDS: FOLIC ACID 1 MG TABLET PO SCH (09:15)
[2023-02-24] MEDS: DORZOLAMIDE/TIMOLOL OPHT DROP 10 ML BOTTLE EACHEYE SCH ×2 (09:15→17:00)
[2023-02-24] MEDS: levETIRAcetam 500 MG/5 ML LIQUID UDC PO SCH ×2 (09:15→17:00)
[2023-02-24] MEDS: MIRALAX 17 GM POWD.PACK PO SCH ×2 (09:15→17:00)
[2023-02-24] MEDS: BENZONATATE 100 MG CAPSULE PO PRN (09:42)
[2023-02-24] MEDS: GUAIFENESIN SUGAR FREE 100 MG/5 ML UDC PO PRN (09:42)
[2023-02-24] MEDS: ATORVASTATIN 20 MG TABLET PO SCH (18:11)
[2023-02-24] MEDS: ASPIRIN 81 MG TAB.CHEW PO SCH (18:11)
[2023-02-24] MEDS: OMEGA-3 FATTY ACIDS/FISH OIL CAPSULE PO SCH (18:11)
[2023-02-24] MEDS: MULTIVIT, IRON, MIN NO. 8, FA TABLET PO SCH (18:11)
[2023-02-24] MEDS: CHOLECALCIFEROL 1,000 UNIT TABLET PO SCH (18:11)
[2023-02-24] MEDS: MAGNESIUM OXIDE 400 MG TABLET PO SCH (18:11)
[2023-02-24] MEDS: LATANOPROST OPHT DROP 2.5 ML BOTTLE EACHEYE SCH (20:41)
[2023-02-25] VITALS (10 sets, daily range): TEMP 97.6–98.1; O2SAT 98–99
[2023-02-25] MEDS: IPRATROPIUM/ALBUTEROL SULFATE 3 ML AMPUL.NEB NEB SCH ×4 (00:57→19:17)
[2023-02-25] MEDS: LEVOTHYROXINE SODIUM 112 MCG TABLET PO SCH (05:48)
[2023-02-25] MEDS: BUDESONIDE 0.5 MG/2 ML NEBU NEB SCH ×2 (07:47→19:17)
[2023-02-25] MEDS: HYDROGEN PEROXIDE 3% 118 ML BOTTLE TP SCH ×2 (09:14→19:17)
[2023-02-25] MEDS: VITAMINS A AND D OINT 42 GM TUBE TP SCH ×2 (09:35→21:00)
[2023-02-25] MEDS: DORZOLAMIDE/TIMOLOL OPHT DROP 10 ML BOTTLE EACHEYE SCH ×2 (09:35→17:00)
[2023-02-25] MEDS: REMEDY ESSENTIAL ZINC PASTE 113 GM TP SCH ×2 (09:35→21:00)
[2023-02-25] MEDS: FOLIC ACID 1 MG TABLET PO SCH (09:35)
[2023-02-25] MEDS: FERROUS SULFATE 325 MG TABEC PO SCH (09:35)
[2023-02-25] MEDS: levETIRAcetam 500 MG/5 ML LIQUID UDC PO SCH ×2 (09:35→17:00)
[2023-02-25] MEDS: TOLTERODINE 1 MG TABLET PO SCH ×2 (09:35→17:00)
[2023-02-25] MEDS: MIRALAX 17 GM POWD.PACK PO SCH ×2 (09:35→17:00)
[2023-02-25] MEDS: OMEGA-3 FATTY ACIDS/FISH OIL CAPSULE PO SCH (18:27)
[2023-02-25] MEDS: MULTIVIT, IRON, MIN NO. 8, FA TABLET PO SCH (18:27)
[2023-02-25] MEDS: ATORVASTATIN 20 MG TABLET PO SCH (18:27)
[2023-02-25] MEDS: CHOLECALCIFEROL 1,000 UNIT TABLET PO SCH (18:27)
[2023-02-25] MEDS: ASPIRIN 81 MG TAB.CHEW PO SCH (18:27)
[2023-02-25] MEDS: MAGNESIUM OXIDE 400 MG TABLET PO SCH (18:27)
[2023-02-25] MEDS: LATANOPROST OPHT DROP 2.5 ML BOTTLE EACHEYE SCH (21:00)
[2023-02-26] VITALS (10 sets, daily range): TEMP 98.1–98.3; O2SAT 98–99
[2023-02-26] MEDS: IPRATROPIUM/ALBUTEROL SULFATE 3 ML AMPUL.NEB NEB SCH ×4 (00:47→19:16)
[2023-02-26] MEDS: LEVOTHYROXINE SODIUM 112 MCG TABLET PO SCH (05:30)
[2023-02-26] MEDS: BUDESONIDE 0.5 MG/2 ML NEBU NEB SCH ×2 (07:41→19:16)
[2023-02-26] MEDS: HYDROGEN PEROXIDE 3% 118 ML BOTTLE TP SCH ×2 (08:08→19:16)
[2023-02-26] MEDS: levETIRAcetam 500 MG/5 ML LIQUID UDC PO SCH ×2 (09:36→17:00)
[2023-02-26] MEDS: FERROUS SULFATE 325 MG TABEC PO SCH (09:36)
[2023-02-26] MEDS: FOLIC ACID 1 MG TABLET PO SCH (09:36)
[2023-02-26] MEDS: TOLTERODINE 1 MG TABLET PO SCH ×2 (09:36→17:00)
[2023-02-26] MEDS: DORZOLAMIDE/TIMOLOL OPHT DROP 10 ML BOTTLE EACHEYE SCH ×2 (09:36→17:00)
[2023-02-26] MEDS: REMEDY ESSENTIAL ZINC PASTE 113 GM TP SCH ×2 (09:36→20:43)
[2023-02-26] MEDS: MIRALAX 17 GM POWD.PACK PO SCH ×2 (09:36→17:00)
[2023-02-26] MEDS: VITAMINS A AND D OINT 42 GM TUBE TP SCH ×2 (09:36→20:43)
[2023-02-26] MEDS: MULTIVIT, IRON, MIN NO. 8, FA TABLET PO SCH (18:14)
[2023-02-26] MEDS: ATORVASTATIN 20 MG TABLET PO SCH (18:14)
[2023-02-26] MEDS: ASPIRIN 81 MG TAB.CHEW PO SCH (18:14)
[2023-02-26] MEDS: OMEGA-3 FATTY ACIDS/FISH OIL CAPSULE PO SCH (18:14)
[2023-02-26] MEDS: MAGNESIUM OXIDE 400 MG TABLET PO SCH (18:14)
[2023-02-26] MEDS: CHOLECALCIFEROL 1,000 UNIT TABLET PO SCH (18:15)
[2023-02-26] MEDS: GUAIFENESIN SUGAR FREE 100 MG/5 ML UDC PO PRN (18:23)
[2023-02-26] MEDS: BENZONATATE 100 MG CAPSULE PO PRN (18:23)
[2023-02-26] MEDS: LATANOPROST OPHT DROP 2.5 ML BOTTLE EACHEYE SCH (20:43)
[2023-02-27] VITALS (10 sets, daily range): TEMP 98–98.8; O2SAT 97–99
[2023-02-27] MEDS: IPRATROPIUM/ALBUTEROL SULFATE 3 ML AMPUL.NEB NEB SCH ×4 (01:01→19:13)
[2023-02-27] MEDS: LEVOTHYROXINE SODIUM 112 MCG TABLET PO SCH (05:43)
[2023-02-27] MEDS: BUDESONIDE 0.5 MG/2 ML NEBU NEB SCH ×2 (07:47→19:13)
[2023-02-27] MEDS: HYDROGEN PEROXIDE 3% 118 ML BOTTLE TP SCH ×2 (07:47→19:13)
[2023-02-27] MEDS: TOLTERODINE 1 MG TABLET PO SCH ×2 (09:00→17:12)
[2023-02-27] MEDS: FERROUS SULFATE 325 MG TABEC PO SCH (09:00)
[2023-02-27] MEDS: DORZOLAMIDE/TIMOLOL OPHT DROP 10 ML BOTTLE EACHEYE SCH ×2 (09:00→17:09)
[2023-02-27] MEDS: MIRALAX 17 GM POWD.PACK PO SCH ×2 (09:01→17:12)
[2023-02-27] MEDS: levETIRAcetam 500 MG/5 ML LIQUID UDC PO SCH ×2 (09:01→17:12)
[2023-02-27] MEDS: FOLIC ACID 1 MG TABLET PO SCH (09:01)
[2023-02-27] MEDS: REMEDY ESSENTIAL ZINC PASTE 113 GM TP SCH ×2 (09:02→20:50)
[2023-02-27] MEDS: VITAMINS A AND D OINT 42 GM TUBE TP SCH ×2 (09:02→20:50)
[2023-02-27] MEDS: ATORVASTATIN 20 MG TABLET PO SCH (17:12)
[2023-02-27] MEDS: ASPIRIN 81 MG TAB.CHEW PO SCH (17:12)
[2023-02-27] MEDS: MAGNESIUM OXIDE 400 MG TABLET PO SCH (17:12)
[2023-02-27] MEDS: OMEGA-3 FATTY ACIDS/FISH OIL CAPSULE PO SCH (17:12)
[2023-02-27] MEDS: MULTIVIT, IRON, MIN NO. 8, FA TABLET PO SCH (17:13)
[2023-02-27] MEDS: CHOLECALCIFEROL 1,000 UNIT TABLET PO SCH (17:14)
[2023-02-27] MEDS: BENZONATATE 100 MG CAPSULE PO PRN (17:18)
[2023-02-27] MEDS: LATANOPROST OPHT DROP 2.5 ML BOTTLE EACHEYE SCH (20:50)
[2023-02-28] VITALS (10 sets, daily range): TEMP 97.8–98; O2SAT 97–99
[2023-02-28] MEDS: IPRATROPIUM/ALBUTEROL SULFATE 3 ML AMPUL.NEB NEB SCH ×4 (01:29→19:15)
[2023-02-28] MEDS: LEVOTHYROXINE SODIUM 112 MCG TABLET PO SCH (05:50)
[2023-02-28] MEDS: BUDESONIDE 0.5 MG/2 ML NEBU NEB SCH ×2 (07:41→19:15)
[2023-02-28] MEDS: HYDROGEN PEROXIDE 3% 118 ML BOTTLE TP SCH ×2 (07:41→19:15)
[2023-02-28] MEDS: MIRALAX 17 GM POWD.PACK PO SCH ×2 (09:14→17:46)
[2023-02-28] MEDS: DORZOLAMIDE/TIMOLOL OPHT DROP 10 ML BOTTLE EACHEYE SCH ×2 (09:14→17:43)
[2023-02-28] MEDS: levETIRAcetam 500 MG/5 ML LIQUID UDC PO SCH ×2 (09:14→17:43)
[2023-02-28] MEDS: FOLIC ACID 1 MG TABLET PO SCH (09:14)
[2023-02-28] MEDS: TOLTERODINE 1 MG TABLET PO SCH ×2 (09:14→17:43)
[2023-02-28] MEDS: FERROUS SULFATE 325 MG TABEC PO SCH (09:14)
[2023-02-28] MEDS: VITAMINS A AND D OINT 42 GM TUBE TP SCH ×2 (09:15→20:51)
[2023-02-28] MEDS: REMEDY ESSENTIAL ZINC PASTE 113 GM TP SCH ×2 (09:15→20:51)
[2023-02-28] MEDS: OMEGA-3 FATTY ACIDS/FISH OIL CAPSULE PO SCH (17:48)
[2023-02-28] MEDS: MULTIVIT, IRON, MIN NO. 8, FA TABLET PO SCH (17:48)
[2023-02-28] MEDS: MAGNESIUM OXIDE 400 MG TABLET PO SCH (17:48)
[2023-02-28] MEDS: ATORVASTATIN 20 MG TABLET PO SCH (17:48)
[2023-02-28] MEDS: ASPIRIN 81 MG TAB.CHEW PO SCH (17:48)
[2023-02-28] MEDS: CHOLECALCIFEROL 1,000 UNIT TABLET PO SCH (17:49)
[2023-02-28] MEDS: BENZONATATE 100 MG CAPSULE PO PRN (17:49)
[2023-02-28] MEDS: LATANOPROST OPHT DROP 2.5 ML BOTTLE EACHEYE SCH (20:51)
[2023-03-01] VITALS (10 sets, daily range): TEMP 97.5–97.8; O2SAT 97–99
[2023-03-01] MEDS: IPRATROPIUM/ALBUTEROL SULFATE 3 ML AMPUL.NEB NEB SCH ×4 (01:46→19:16)
[2023-03-01] MEDS: LEVOTHYROXINE SODIUM 112 MCG TABLET PO SCH (05:45)
[2023-03-01] MEDS: HYDROGEN PEROXIDE 3% 118 ML BOTTLE TP SCH ×2 (07:06→19:16)
[2023-03-01] MEDS: BUDESONIDE 0.5 MG/2 ML NEBU NEB SCH ×2 (07:06→19:16)
[2023-03-01] MEDS: DORZOLAMIDE/TIMOLOL OPHT DROP 10 ML BOTTLE EACHEYE SCH ×2 (09:52→17:22)
[2023-03-01] MEDS: TOLTERODINE 1 MG TABLET PO SCH ×2 (09:52→17:22)
[2023-03-01] MEDS: BENZONATATE 100 MG CAPSULE PO PRN ×2 (09:55→18:19)
[2023-03-01] MEDS: REMEDY ESSENTIAL ZINC PASTE 113 GM TP SCH ×2 (09:55→20:50)
[2023-03-01] MEDS: levETIRAcetam 500 MG/5 ML LIQUID UDC PO SCH ×2 (09:55→17:22)
[2023-03-01] MEDS: VITAMINS A AND D OINT 42 GM TUBE TP SCH ×2 (09:55→20:51)
[2023-03-01] MEDS: FOLIC ACID 1 MG TABLET PO SCH (09:55)
[2023-03-01] MEDS: MIRALAX 17 GM POWD.PACK PO SCH ×2 (09:55→17:22)
[2023-03-01] MEDS: FERROUS SULFATE 325 MG TABEC PO SCH (09:55)
[2023-03-01] MEDS: GUAIFENESIN SUGAR FREE 100 MG/5 ML UDC PO PRN (14:00)
[2023-03-01] MEDS: ATORVASTATIN 20 MG TABLET PO SCH (17:22)
[2023-03-01] MEDS: MAGNESIUM OXIDE 400 MG TABLET PO SCH (17:22)
[2023-03-01] MEDS: ASPIRIN 81 MG TAB.CHEW PO SCH (17:22)
[2023-03-01] MEDS: OMEGA-3 FATTY ACIDS/FISH OIL CAPSULE PO SCH (17:22)
[2023-03-01] MEDS: CHOLECALCIFEROL 1,000 UNIT TABLET PO SCH (17:22)
[2023-03-01] MEDS: MULTIVIT, IRON, MIN NO. 8, FA TABLET PO SCH (17:22)
[2023-03-01] MEDS: LATANOPROST OPHT DROP 2.5 ML BOTTLE EACHEYE SCH (20:50)
[2023-03-02] VITALS (10 sets, daily range): TEMP 97.8–97.9; O2SAT 97–99
[2023-03-02] MEDS: IPRATROPIUM/ALBUTEROL SULFATE 3 ML AMPUL.NEB NEB SCH ×4 (01:39→19:12)
[2023-03-02] MEDS: LEVOTHYROXINE SODIUM 112 MCG TABLET PO SCH (05:58)
[2023-03-02] MEDS: HYDROGEN PEROXIDE 3% 118 ML BOTTLE TP SCH ×2 (07:38→19:12)
[2023-03-02] MEDS: BUDESONIDE 0.5 MG/2 ML NEBU NEB SCH ×2 (07:38→19:13)
[2023-03-02] MEDS: TOLTERODINE 1 MG TABLET PO SCH ×2 (09:26→16:27)
[2023-03-02] MEDS: DORZOLAMIDE/TIMOLOL OPHT DROP 10 ML BOTTLE EACHEYE SCH ×2 (09:26→16:27)
[2023-03-02] MEDS: MIRALAX 17 GM POWD.PACK PO SCH ×2 (09:28→16:27)
[2023-03-02] MEDS: FOLIC ACID 1 MG TABLET PO SCH (09:28)
[2023-03-02] MEDS: REMEDY ESSENTIAL ZINC PASTE 113 GM TP SCH ×2 (09:28→20:59)
[2023-03-02] MEDS: levETIRAcetam 500 MG/5 ML LIQUID UDC PO SCH ×2 (09:28→16:27)
[2023-03-02] MEDS: VITAMINS A AND D OINT 42 GM TUBE TP SCH ×2 (09:28→20:59)
[2023-03-02] MEDS: FERROUS SULFATE 325 MG TABEC PO SCH (09:28)
[2023-03-02] MEDS: GUAIFENESIN SUGAR FREE 100 MG/5 ML UDC PO PRN (09:29)
[2023-03-02] MEDS: BENZONATATE 100 MG CAPSULE PO PRN (09:29)
[2023-03-02] MEDS: OMEGA-3 FATTY ACIDS/FISH OIL CAPSULE PO SCH (17:33)
[2023-03-02] MEDS: ATORVASTATIN 20 MG TABLET PO SCH (17:33)
[2023-03-02] MEDS: MULTIVIT, IRON, MIN NO. 8, FA TABLET PO SCH (17:33)
[2023-03-02] MEDS: MAGNESIUM OXIDE 400 MG TABLET PO SCH (17:33)
[2023-03-02] MEDS: CHOLECALCIFEROL 1,000 UNIT TABLET PO SCH (17:33)
[2023-03-02] MEDS: ASPIRIN 81 MG TAB.CHEW PO SCH (17:33)
[2023-03-02] MEDS: LATANOPROST OPHT DROP 2.5 ML BOTTLE EACHEYE SCH (20:58)
[2023-03-03] VITALS (10 sets, daily range): TEMP 98–98.8; O2SAT 97–99
[2023-03-03] MEDS: IPRATROPIUM/ALBUTEROL SULFATE 3 ML AMPUL.NEB NEB SCH ×4 (01:07→19:20)
[2023-03-03] MEDS: LEVOTHYROXINE SODIUM 112 MCG TABLET PO SCH (05:32)
[2023-03-03 07:27] LABS: BASOPHILS % (AUTO) 0.6 % (0.0-2.0); EOSINOPHILS # (AUTO) 0.1 K/uL (0.0-0.7); EOSINOPHILS % (AUTO) 2.2 % (0.0-7.0); HEMATOCRIT 31.6 % (31.2-41.9); HEMOGLOBIN 10.6 g/dL (10.9-14.3); LYMPHOCYTES # (AUTO) 1.4 K/uL (0.8-4.8); LYMPHOCYTES % (AUTO) 26.1 % (20.5-51.5); MEAN CORPUSCULAR HEMOGLOBIN 29.6 uug (24.7-32.8); MEAN CORPUSCULAR HGB CONC 33 g/dL (32.3-35.6); MEAN CORPUSCULAR VOLUME 88.4 fL (75.5-95.3); MONOCYTES # (AUTO) 0.6 K/uL (0.1-1.30); MONOCYTES % (AUTO) 11.4 % (0.0-11.0); NEUTROPHILS # (AUTO) 3.3 K/uL (1.8-8.9); NEUTROPHILS % (AUTO) 59.7 % (38.5-71.5); PLATELET COUNT (AUTO) 206 K/uL (179-408); RED BLOOD CELL COUNT(AUTO) 3.58 MIL/uL (3.63-4.92); RED CELL DISTRIBUTION WIDTH 14.5 % (12.3-17.7); WHITE BLOOD COUNT (AUTO) 5.5 K/uL (3.8-11.8)
[2023-03-03 07:36] LABS: CALCIUM 8.5 mg/dL (8.5-10.1); CARBON DIOXIDE 33 mmol/L (21-32); CHLORIDE 97 mmol/L (98-107); CREATININE 0.6 mg/dL (0.6-1.3); GLUCOSE 88 mg/dL (74-106); MAGNESIUM 1.7 mg/dL (1.8-2.4); PHOSPHOROUS 4.3 mg/dL (2.5-4.9); POTASSIUM 4.1 mmol/L (3.5-5.1); SODIUM SERUM 135 mmol/L (136-145); UREA NITROGEN, BLOOD 16 mg/dL (7-18)
[2023-03-03] MEDS: BUDESONIDE 0.5 MG/2 ML NEBU NEB SCH ×2 (07:48→19:20)
[2023-03-03 08:49] LABS: DIFFERENTIAL COMMENT 1
[2023-03-03] MEDS: HYDROGEN PEROXIDE 3% 118 ML BOTTLE TP SCH ×2 (09:21→19:20)
[2023-03-03] MEDS: FERROUS SULFATE 325 MG TABEC PO SCH (09:46)
[2023-03-03] MEDS: TOLTERODINE 1 MG TABLET PO SCH ×2 (09:46→17:00)
[2023-03-03] MEDS: DORZOLAMIDE/TIMOLOL OPHT DROP 10 ML BOTTLE EACHEYE SCH ×2 (09:46→17:00)
[2023-03-03] MEDS: FOLIC ACID 1 MG TABLET PO SCH (09:47)
[2023-03-03] MEDS: levETIRAcetam 500 MG/5 ML LIQUID UDC PO SCH ×2 (09:48→17:00)
[2023-03-03] MEDS: REMEDY ESSENTIAL ZINC PASTE 113 GM TP SCH ×2 (09:48→21:20)
[2023-03-03] MEDS: VITAMINS A AND D OINT 42 GM TUBE TP SCH ×2 (09:48→21:20)
[2023-03-03] MEDS: MIRALAX 17 GM POWD.PACK PO SCH ×2 (09:48→17:00)
[2023-03-03] MEDS: GUAIFENESIN SUGAR FREE 100 MG/5 ML UDC PO PRN (09:52)
[2023-03-03] MEDS: BENZONATATE 100 MG CAPSULE PO PRN (09:52)
[2023-03-03] MEDS ORDERED: MAGNESIUM OXIDE 400 MG TABLET PO ONE (11:30)
[2023-03-03] MEDS: ASPIRIN 81 MG TAB.CHEW PO SCH (18:17)
[2023-03-03] MEDS: OMEGA-3 FATTY ACIDS/FISH OIL CAPSULE PO SCH (18:18)
[2023-03-03] MEDS: MAGNESIUM OXIDE 400 MG TABLET PO SCH (18:19)
[2023-03-03] MEDS: ATORVASTATIN 20 MG TABLET PO SCH (18:19)
[2023-03-03] MEDS: MULTIVIT, IRON, MIN NO. 8, FA TABLET PO SCH (18:19)
[2023-03-03] MEDS: CHOLECALCIFEROL 1,000 UNIT TABLET PO SCH (18:20)
[2023-03-03] MEDS: LATANOPROST OPHT DROP 2.5 ML BOTTLE EACHEYE SCH (21:20)
[2023-03-04] VITALS (9 sets, daily range): TEMP 98.6; O2SAT 98–99
[2023-03-04] MEDS: IPRATROPIUM/ALBUTEROL SULFATE 3 ML AMPUL.NEB NEB SCH ×4 (01:06→19:15)
[2023-03-04] MEDS: LEVOTHYROXINE SODIUM 112 MCG TABLET PO SCH (05:42)
[2023-03-04] MEDS: BUDESONIDE 0.5 MG/2 ML NEBU NEB SCH ×2 (07:21→19:15)
[2023-03-04] MEDS: HYDROGEN PEROXIDE 3% 118 ML BOTTLE TP SCH ×2 (07:21→19:15)
[2023-03-04] MEDS: GUAIFENESIN SUGAR FREE 100 MG/5 ML UDC PO PRN (09:00)
[2023-03-04] MEDS: BENZONATATE 100 MG CAPSULE PO PRN (09:00)
[2023-03-04] MEDS: TOLTERODINE 1 MG TABLET PO SCH ×2 (09:03→16:46)
[2023-03-04] MEDS: DORZOLAMIDE/TIMOLOL OPHT DROP 10 ML BOTTLE EACHEYE SCH ×2 (09:03→16:46)
[2023-03-04] MEDS: VITAMINS A AND D OINT 42 GM TUBE TP SCH ×2 (09:04→20:26)
[2023-03-04] MEDS: levETIRAcetam 500 MG/5 ML LIQUID UDC PO SCH ×2 (09:04→16:46)
[2023-03-04] MEDS: MIRALAX 17 GM POWD.PACK PO SCH ×2 (09:04→16:46)
[2023-03-04] MEDS: REMEDY ESSENTIAL ZINC PASTE 113 GM TP SCH ×2 (09:04→20:26)
[2023-03-04] MEDS: FERROUS SULFATE 325 MG TABEC PO SCH (09:04)
[2023-03-04] MEDS: FOLIC ACID 1 MG TABLET PO SCH (09:04)
[2023-03-04] MEDS: MAGNESIUM OXIDE 400 MG TABLET PO SCH (17:19)
[2023-03-04] MEDS: ASPIRIN 81 MG TAB.CHEW PO SCH (17:19)
[2023-03-04] MEDS: OMEGA-3 FATTY ACIDS/FISH OIL CAPSULE PO SCH (17:19)
[2023-03-04] MEDS: MULTIVIT, IRON, MIN NO. 8, FA TABLET PO SCH (17:19)
[2023-03-04] MEDS: CHOLECALCIFEROL 1,000 UNIT TABLET PO SCH (17:19)
[2023-03-04] MEDS: ATORVASTATIN 20 MG TABLET PO SCH (17:19)
[2023-03-04] MEDS: LATANOPROST OPHT DROP 2.5 ML BOTTLE EACHEYE SCH (20:23)
[2023-03-05] VITALS (10 sets, daily range): TEMP 97.7–98; O2SAT 97–99
[2023-03-05] MEDS: IPRATROPIUM/ALBUTEROL SULFATE 3 ML AMPUL.NEB NEB SCH ×4 (00:47→19:07)
[2023-03-05] MEDS: LEVOTHYROXINE SODIUM 112 MCG TABLET PO SCH (06:27)
[2023-03-05] MEDS: HYDROGEN PEROXIDE 3% 118 ML BOTTLE TP SCH ×2 (07:31→19:07)
[2023-03-05] MEDS: BUDESONIDE 0.5 MG/2 ML NEBU NEB SCH ×2 (07:31→19:07)
[2023-03-05] MEDS: FERROUS SULFATE 325 MG TABEC PO SCH (09:15)
[2023-03-05] MEDS: DORZOLAMIDE/TIMOLOL OPHT DROP 10 ML BOTTLE EACHEYE SCH ×2 (09:15→17:18)
[2023-03-05] MEDS: FOLIC ACID 1 MG TABLET PO SCH (09:15)
[2023-03-05] MEDS: TOLTERODINE 1 MG TABLET PO SCH ×2 (09:15→17:18)
[2023-03-05] MEDS: MIRALAX 17 GM POWD.PACK PO SCH ×2 (09:16→17:20)
[2023-03-05] MEDS: levETIRAcetam 500 MG/5 ML LIQUID UDC PO SCH ×2 (09:16→17:19)
[2023-03-05] MEDS: BENZONATATE 100 MG CAPSULE PO PRN (09:17)
[2023-03-05] MEDS: GUAIFENESIN SUGAR FREE 100 MG/5 ML UDC PO PRN (09:17)
[2023-03-05] MEDS: REMEDY ESSENTIAL ZINC PASTE 113 GM TP SCH ×2 (09:17→21:29)
[2023-03-05] MEDS: NEOMY/BACITRA/POLYMYXIN B OINT UD PACKET TP SCH ×2 (09:17→21:29)
[2023-03-05] MEDS: VITAMINS A AND D OINT 42 GM TUBE TP SCH ×2 (09:17→21:29)
[2023-03-05] MEDS: ASPIRIN 81 MG TAB.CHEW PO SCH (17:20)
[2023-03-05] MEDS: OMEGA-3 FATTY ACIDS/FISH OIL CAPSULE PO SCH (17:20)
[2023-03-05] MEDS: ATORVASTATIN 20 MG TABLET PO SCH (17:22)
[2023-03-05] MEDS: CHOLECALCIFEROL 1,000 UNIT TABLET PO SCH (17:22)
[2023-03-05] MEDS: MULTIVIT, IRON, MIN NO. 8, FA TABLET PO SCH (17:22)
[2023-03-05] MEDS: MAGNESIUM OXIDE 400 MG TABLET PO SCH (17:22)
[2023-03-05] MEDS: LATANOPROST OPHT DROP 2.5 ML BOTTLE EACHEYE SCH (21:29)
[2023-03-06] VITALS (10 sets, daily range): TEMP 97.4–97.8; O2SAT 97–100
[2023-03-06] MEDS: IPRATROPIUM/ALBUTEROL SULFATE 3 ML AMPUL.NEB NEB SCH ×4 (01:49→19:08)
[2023-03-06] MEDS: LEVOTHYROXINE SODIUM 112 MCG TABLET PO SCH (06:22)
[2023-03-06] MEDS: BUDESONIDE 0.5 MG/2 ML NEBU NEB SCH ×2 (07:44→19:08)
[2023-03-06] MEDS: HYDROGEN PEROXIDE 3% 118 ML BOTTLE TP SCH ×2 (08:01→21:19)
[2023-03-06] MEDS: TOLTERODINE 1 MG TABLET PO SCH ×2 (08:52→16:09)
[2023-03-06] MEDS: FOLIC ACID 1 MG TABLET PO SCH (08:52)
[2023-03-06] MEDS: DORZOLAMIDE/TIMOLOL OPHT DROP 10 ML BOTTLE EACHEYE SCH ×2 (08:52→16:08)
[2023-03-06] MEDS: FERROUS SULFATE 325 MG TABEC PO SCH (08:53)
[2023-03-06] MEDS: NEOMY/BACITRA/POLYMYXIN B OINT UD PACKET TP SCH ×2 (08:55→21:00)
[2023-03-06] MEDS: REMEDY ESSENTIAL ZINC PASTE 113 GM TP SCH ×2 (08:55→21:00)
[2023-03-06] MEDS: VITAMINS A AND D OINT 42 GM TUBE TP SCH ×2 (08:55→21:00)
[2023-03-06] MEDS: MIRALAX 17 GM POWD.PACK PO SCH ×2 (08:56→16:11)
[2023-03-06] MEDS: levETIRAcetam 500 MG/5 ML LIQUID UDC PO SCH ×2 (08:57→16:09)
[2023-03-06] MEDS: BENZONATATE 100 MG CAPSULE PO PRN ×2 (09:28→17:16)
[2023-03-06] MEDS: GUAIFENESIN SUGAR FREE 100 MG/5 ML UDC PO PRN (09:28)
[2023-03-06] MEDS: OMEGA-3 FATTY ACIDS/FISH OIL CAPSULE PO SCH (17:13)
[2023-03-06] MEDS: CHOLECALCIFEROL 1,000 UNIT TABLET PO SCH (17:13)
[2023-03-06] MEDS: MULTIVIT, IRON, MIN NO. 8, FA TABLET PO SCH (17:13)
[2023-03-06] MEDS: ASPIRIN 81 MG TAB.CHEW PO SCH (17:13)
[2023-03-06] MEDS: ATORVASTATIN 20 MG TABLET PO SCH (17:13)
[2023-03-06] MEDS: MAGNESIUM OXIDE 400 MG TABLET PO SCH (17:13)
[2023-03-06] MEDS: LATANOPROST OPHT DROP 2.5 ML BOTTLE EACHEYE SCH (21:00)
[2023-03-07] VITALS (10 sets, daily range): TEMP 97.6–97.8; O2SAT 97–100
[2023-03-07] MEDS: IPRATROPIUM/ALBUTEROL SULFATE 3 ML AMPUL.NEB NEB SCH ×4 (02:29→19:10)
[2023-03-07] MEDS: LEVOTHYROXINE SODIUM 112 MCG TABLET PO SCH (05:52)
[2023-03-07] MEDS: BUDESONIDE 0.5 MG/2 ML NEBU NEB SCH ×2 (07:44→19:10)
[2023-03-07] MEDS: HYDROGEN PEROXIDE 3% 118 ML BOTTLE TP SCH ×2 (08:28→20:57)
[2023-03-07] MEDS: TOLTERODINE 1 MG TABLET PO SCH ×2 (09:09→17:03)
[2023-03-07] MEDS: DORZOLAMIDE/TIMOLOL OPHT DROP 10 ML BOTTLE EACHEYE SCH ×2 (09:09→17:01)
[2023-03-07] MEDS: FOLIC ACID 1 MG TABLET PO SCH (09:10)
[2023-03-07] MEDS: levETIRAcetam 500 MG/5 ML LIQUID UDC PO SCH ×2 (09:11→17:04)
[2023-03-07] MEDS: REMEDY ESSENTIAL ZINC PASTE 113 GM TP SCH ×2 (09:11→21:03)
[2023-03-07] MEDS: NEOMY/BACITRA/POLYMYXIN B OINT UD PACKET TP SCH ×2 (09:11→21:03)
[2023-03-07] MEDS: VITAMINS A AND D OINT 42 GM TUBE TP SCH ×2 (09:12→21:04)
[2023-03-07] MEDS: MIRALAX 17 GM POWD.PACK PO SCH ×2 (09:17→17:06)
[2023-03-07] MEDS: FERROUS SULFATE 325 MG TABEC PO SCH (09:17)
[2023-03-07] MEDS: BENZONATATE 100 MG CAPSULE PO PRN (09:23)
[2023-03-07] MEDS: MULTIVIT, IRON, MIN NO. 8, FA TABLET PO SCH (17:15)
[2023-03-07] MEDS: ATORVASTATIN 20 MG TABLET PO SCH (17:15)
[2023-03-07] MEDS: OMEGA-3 FATTY ACIDS/FISH OIL CAPSULE PO SCH (17:15)
[2023-03-07] MEDS: MAGNESIUM OXIDE 400 MG TABLET PO SCH (17:15)
[2023-03-07] MEDS: ASPIRIN 81 MG TAB.CHEW PO SCH (17:15)
[2023-03-07] MEDS: CHOLECALCIFEROL 1,000 UNIT TABLET PO SCH (17:15)
[2023-03-07] MEDS: LATANOPROST OPHT DROP 2.5 ML BOTTLE EACHEYE SCH (21:03)
[2023-03-08] VITALS (10 sets, daily range): TEMP 98.3–98.7; O2SAT 97–99
[2023-03-08] MEDS: IPRATROPIUM/ALBUTEROL SULFATE 3 ML AMPUL.NEB NEB SCH ×4 (00:50→19:15)
[2023-03-08] MEDS: LEVOTHYROXINE SODIUM 112 MCG TABLET PO SCH (06:07)
[2023-03-08] MEDS: BUDESONIDE 0.5 MG/2 ML NEBU NEB SCH ×2 (07:47→19:15)
[2023-03-08] MEDS: HYDROGEN PEROXIDE 3% 118 ML BOTTLE TP SCH ×2 (07:48→21:02)
[2023-03-08] MEDS: NEOMY/BACITRA/POLYMYXIN B OINT UD PACKET TP SCH ×2 (09:00→21:11)
[2023-03-08] MEDS: FERROUS SULFATE 325 MG TABEC PO SCH (09:14)
[2023-03-08] MEDS: DORZOLAMIDE/TIMOLOL OPHT DROP 10 ML BOTTLE EACHEYE SCH ×2 (09:14→17:34)
[2023-03-08] MEDS: TOLTERODINE 1 MG TABLET PO SCH ×2 (09:14→17:34)
[2023-03-08] MEDS: FOLIC ACID 1 MG TABLET PO SCH (09:14)
[2023-03-08] MEDS: levETIRAcetam 500 MG/5 ML LIQUID UDC PO SCH ×2 (09:15→17:34)
[2023-03-08] MEDS: VITAMINS A AND D OINT 42 GM TUBE TP SCH ×2 (09:16→21:11)
[2023-03-08] MEDS: REMEDY ESSENTIAL ZINC PASTE 113 GM TP SCH ×2 (09:16→21:11)
[2023-03-08] MEDS: MIRALAX 17 GM POWD.PACK PO SCH ×2 (09:16→17:35)
[2023-03-08] MEDS: BENZONATATE 100 MG CAPSULE PO PRN ×2 (09:38→18:18)
[2023-03-08] MEDS: GUAIFENESIN SUGAR FREE 100 MG/5 ML UDC PO PRN ×2 (09:38→18:18)
[2023-03-08] MEDS: ATORVASTATIN 20 MG TABLET PO SCH (17:36)
[2023-03-08] MEDS: ASPIRIN 81 MG TAB.CHEW PO SCH (17:36)
[2023-03-08] MEDS: OMEGA-3 FATTY ACIDS/FISH OIL CAPSULE PO SCH (17:36)
[2023-03-08] MEDS: MAGNESIUM OXIDE 400 MG TABLET PO SCH (17:36)
[2023-03-08] MEDS: CHOLECALCIFEROL 1,000 UNIT TABLET PO SCH (17:38)
[2023-03-08] MEDS: MULTIVIT, IRON, MIN NO. 8, FA TABLET PO SCH (17:38)
[2023-03-08] MEDS: LATANOPROST OPHT DROP 2.5 ML BOTTLE EACHEYE SCH (21:11)
[2023-03-09] VITALS (10 sets, daily range): BP systolic 100; BP diastolic 75; TEMP 97.5–99; O2SAT 97–99
[2023-03-09] MEDS: IPRATROPIUM/ALBUTEROL SULFATE 3 ML AMPUL.NEB NEB SCH ×4 (01:17→19:15)
[2023-03-09] MEDS: LEVOTHYROXINE SODIUM 112 MCG TABLET PO SCH (05:40)
[2023-03-09] MEDS: BUDESONIDE 0.5 MG/2 ML NEBU NEB SCH ×2 (05:52→19:16)
[2023-03-09] MEDS: HYDROGEN PEROXIDE 3% 118 ML BOTTLE TP SCH ×2 (07:40→20:53)
[2023-03-09] MEDS: DORZOLAMIDE/TIMOLOL OPHT DROP 10 ML BOTTLE EACHEYE SCH ×2 (09:47→17:07)
[2023-03-09] MEDS: MIRALAX 17 GM POWD.PACK PO SCH ×2 (09:48→17:07)
[2023-03-09] MEDS: TOLTERODINE 1 MG TABLET PO SCH ×2 (09:48→17:07)
[2023-03-09] MEDS: FERROUS SULFATE 325 MG TABEC PO SCH (09:48)
[2023-03-09] MEDS: FOLIC ACID 1 MG TABLET PO SCH (09:48)
[2023-03-09] MEDS: levETIRAcetam 500 MG/5 ML LIQUID UDC PO SCH ×2 (09:48→17:07)
[2023-03-09] MEDS: NEOMY/BACITRA/POLYMYXIN B OINT UD PACKET TP SCH ×2 (09:48→21:00)
[2023-03-09] MEDS: REMEDY ESSENTIAL ZINC PASTE 113 GM TP SCH ×2 (09:48→21:00)
[2023-03-09] MEDS: VITAMINS A AND D OINT 42 GM TUBE TP SCH ×2 (09:48→21:00)
[2023-03-09] MEDS: GUAIFENESIN SUGAR FREE 100 MG/5 ML UDC PO PRN ×2 (10:20→17:07)
[2023-03-09] MEDS: BENZONATATE 100 MG CAPSULE PO PRN ×2 (10:20→17:07)
[2023-03-09] MEDS: MAGNESIUM OXIDE 400 MG TABLET PO SCH (17:07)
[2023-03-09] MEDS: OMEGA-3 FATTY ACIDS/FISH OIL CAPSULE PO SCH (17:07)
[2023-03-09] MEDS: ASPIRIN 81 MG TAB.CHEW PO SCH (17:07)
[2023-03-09] MEDS: CHOLECALCIFEROL 1,000 UNIT TABLET PO SCH (17:07)
[2023-03-09] MEDS: ATORVASTATIN 20 MG TABLET PO SCH (17:07)
[2023-03-09] MEDS: MULTIVIT, IRON, MIN NO. 8, FA TABLET PO SCH (17:07)
[2023-03-09] MEDS: LATANOPROST OPHT DROP 2.5 ML BOTTLE EACHEYE SCH (21:00)
[2023-03-10] VITALS (10 sets, daily range): TEMP 98–98.8; O2SAT 98–99
[2023-03-10] MEDS: IPRATROPIUM/ALBUTEROL SULFATE 3 ML AMPUL.NEB NEB SCH ×4 (00:35→19:03)
[2023-03-10] MEDS: LEVOTHYROXINE SODIUM 112 MCG TABLET PO SCH (06:06)
[2023-03-10] MEDS: BUDESONIDE 0.5 MG/2 ML NEBU NEB SCH ×2 (07:58→19:03)
[2023-03-10] MEDS: DORZOLAMIDE/TIMOLOL OPHT DROP 10 ML BOTTLE EACHEYE SCH ×2 (09:25→16:33)
[2023-03-10] MEDS: TOLTERODINE 1 MG TABLET PO SCH ×2 (09:25→16:33)
[2023-03-10] MEDS: FERROUS SULFATE 325 MG TABEC PO SCH (09:25)
[2023-03-10] MEDS: FOLIC ACID 1 MG TABLET PO SCH (09:26)
[2023-03-10] MEDS: levETIRAcetam 500 MG/5 ML LIQUID UDC PO SCH ×2 (09:26→16:33)
[2023-03-10] MEDS: NEOMY/BACITRA/POLYMYXIN B OINT UD PACKET TP SCH ×2 (09:28→20:50)
[2023-03-10] MEDS: VITAMINS A AND D OINT 42 GM TUBE TP SCH ×2 (09:28→20:50)
[2023-03-10] MEDS: MIRALAX 17 GM POWD.PACK PO SCH ×2 (09:28→16:34)
[2023-03-10] MEDS: REMEDY ESSENTIAL ZINC PASTE 113 GM TP SCH ×2 (09:28→20:49)
[2023-03-10] MEDS: GUAIFENESIN SUGAR FREE 100 MG/5 ML UDC PO PRN (09:29)
[2023-03-10] MEDS: BENZONATATE 100 MG CAPSULE PO PRN (09:29)
[2023-03-10] MEDS: HYDROGEN PEROXIDE 3% 118 ML BOTTLE TP SCH ×2 (09:47→19:03)
[2023-03-10] MEDS: MAGNESIUM OXIDE 400 MG TABLET PO SCH (17:10)
[2023-03-10] MEDS: CHOLECALCIFEROL 1,000 UNIT TABLET PO SCH (17:10)
[2023-03-10] MEDS: ASPIRIN 81 MG TAB.CHEW PO SCH (17:10)
[2023-03-10] MEDS: ATORVASTATIN 20 MG TABLET PO SCH (17:10)
[2023-03-10] MEDS: OMEGA-3 FATTY ACIDS/FISH OIL CAPSULE PO SCH (17:10)
[2023-03-10] MEDS: MULTIVIT, IRON, MIN NO. 8, FA TABLET PO SCH (17:10)
[2023-03-10] MEDS: LATANOPROST OPHT DROP 2.5 ML BOTTLE EACHEYE SCH (20:49)
[2023-03-11] VITALS (10 sets, daily range): TEMP 97.6–99; O2SAT 96–99
[2023-03-11] MEDS: IPRATROPIUM/ALBUTEROL SULFATE 3 ML AMPUL.NEB NEB SCH ×4 (02:18→19:10)
[2023-03-11] MEDS: LEVOTHYROXINE SODIUM 112 MCG TABLET PO SCH (05:30)
[2023-03-11] MEDS: BUDESONIDE 0.5 MG/2 ML NEBU NEB SCH ×2 (07:29→19:10)
[2023-03-11] MEDS: HYDROGEN PEROXIDE 3% 118 ML BOTTLE TP SCH ×2 (08:06→20:41)
[2023-03-11] MEDS: TOLTERODINE 1 MG TABLET PO SCH ×2 (09:02→16:54)
[2023-03-11] MEDS: DORZOLAMIDE/TIMOLOL OPHT DROP 10 ML BOTTLE EACHEYE SCH ×2 (09:02→16:54)
[2023-03-11] MEDS: FERROUS SULFATE 325 MG TABEC PO SCH (09:03)
[2023-03-11] MEDS: levETIRAcetam 500 MG/5 ML LIQUID UDC PO SCH ×2 (09:04→16:54)
[2023-03-11] MEDS: FOLIC ACID 1 MG TABLET PO SCH (09:04)
[2023-03-11] MEDS: REMEDY ESSENTIAL ZINC PASTE 113 GM TP SCH ×2 (09:05→21:01)
[2023-03-11] MEDS: GUAIFENESIN SUGAR FREE 100 MG/5 ML UDC PO PRN ×2 (09:05→16:58)
[2023-03-11] MEDS: BENZONATATE 100 MG CAPSULE PO PRN ×2 (09:05→16:58)
[2023-03-11] MEDS: MIRALAX 17 GM POWD.PACK PO SCH ×2 (09:05→16:56)
[2023-03-11] MEDS: NEOMY/BACITRA/POLYMYXIN B OINT UD PACKET TP SCH ×2 (09:05→21:01)
[2023-03-11] MEDS: VITAMINS A AND D OINT 42 GM TUBE TP SCH ×2 (09:05→21:01)
[2023-03-11] MEDS: ATORVASTATIN 20 MG TABLET PO SCH (17:18)
[2023-03-11] MEDS: CHOLECALCIFEROL 1,000 UNIT TABLET PO SCH (17:18)
[2023-03-11] MEDS: MAGNESIUM OXIDE 400 MG TABLET PO SCH (17:18)
[2023-03-11] MEDS: OMEGA-3 FATTY ACIDS/FISH OIL CAPSULE PO SCH (17:18)
[2023-03-11] MEDS: MULTIVIT, IRON, MIN NO. 8, FA TABLET PO SCH (17:18)
[2023-03-11] MEDS: ASPIRIN 81 MG TAB.CHEW PO SCH (17:18)
[2023-03-11] MEDS: LATANOPROST OPHT DROP 2.5 ML BOTTLE EACHEYE SCH (21:01)
[2023-03-12] VITALS (10 sets, daily range): TEMP 97.9–98.2; O2SAT 96–99
[2023-03-12] MEDS: IPRATROPIUM/ALBUTEROL SULFATE 3 ML AMPUL.NEB NEB SCH ×4 (01:39→19:06)
[2023-03-12] MEDS: LEVOTHYROXINE SODIUM 112 MCG TABLET PO SCH (05:31)
[2023-03-12] MEDS: BUDESONIDE 0.5 MG/2 ML NEBU NEB SCH ×2 (07:50→19:06)
[2023-03-12] MEDS: HYDROGEN PEROXIDE 3% 118 ML BOTTLE TP SCH ×2 (08:03→19:06)
[2023-03-12] MEDS: DORZOLAMIDE/TIMOLOL OPHT DROP 10 ML BOTTLE EACHEYE SCH ×2 (09:41→17:08)
[2023-03-12] MEDS: FOLIC ACID 1 MG TABLET PO SCH (09:43)
[2023-03-12] MEDS: FERROUS SULFATE 325 MG TABEC PO SCH (09:44)
[2023-03-12] MEDS: TOLTERODINE 1 MG TABLET PO SCH ×2 (09:45→17:10)
[2023-03-12] MEDS: levETIRAcetam 500 MG/5 ML LIQUID UDC PO SCH ×2 (09:47→17:12)
[2023-03-12] MEDS: MIRALAX 17 GM POWD.PACK PO SCH ×2 (09:49→17:12)
[2023-03-12] MEDS: REMEDY ESSENTIAL ZINC PASTE 113 GM TP SCH ×2 (09:49→21:21)
[2023-03-12] MEDS: VITAMINS A AND D OINT 42 GM TUBE TP SCH ×2 (09:50→21:21)
[2023-03-12] MEDS: NEOMY/BACITRA/POLYMYXIN B OINT UD PACKET TP SCH ×2 (09:50→21:21)
[2023-03-12] MEDS: GUAIFENESIN SUGAR FREE 100 MG/5 ML UDC PO PRN ×2 (09:51→17:17)
[2023-03-12] MEDS: BENZONATATE 100 MG CAPSULE PO PRN ×2 (09:51→17:16)
[2023-03-12] MEDS: ASPIRIN 81 MG TAB.CHEW PO SCH (17:13)
[2023-03-12] MEDS: OMEGA-3 FATTY ACIDS/FISH OIL CAPSULE PO SCH (17:14)
[2023-03-12] MEDS: ATORVASTATIN 20 MG TABLET PO SCH (17:14)
[2023-03-12] MEDS: MULTIVIT, IRON, MIN NO. 8, FA TABLET PO SCH (17:15)
[2023-03-12] MEDS: MAGNESIUM OXIDE 400 MG TABLET PO SCH (17:15)
[2023-03-12] MEDS: CHOLECALCIFEROL 1,000 UNIT TABLET PO SCH (17:16)
[2023-03-12] MEDS: LATANOPROST OPHT DROP 2.5 ML BOTTLE EACHEYE SCH (21:21)
[2023-03-13] VITALS (10 sets, daily range): TEMP 98–98.6; O2SAT 97–99
[2023-03-13] MEDS: IPRATROPIUM/ALBUTEROL SULFATE 3 ML AMPUL.NEB NEB SCH ×4 (01:21→19:15)
[2023-03-13] MEDS: LEVOTHYROXINE SODIUM 112 MCG TABLET PO SCH (05:49)
[2023-03-13] MEDS: BUDESONIDE 0.5 MG/2 ML NEBU NEB SCH ×2 (08:03→19:15)
[2023-03-13] MEDS: HYDROGEN PEROXIDE 3% 118 ML BOTTLE TP SCH ×2 (08:03→19:15)
[2023-03-13] MEDS: BENZONATATE 100 MG CAPSULE PO PRN (09:30)
[2023-03-13] MEDS: GUAIFENESIN SUGAR FREE 100 MG/5 ML UDC PO PRN (09:30)
[2023-03-13] MEDS: VITAMINS A AND D OINT 42 GM TUBE TP SCH ×2 (09:55→20:39)
[2023-03-13] MEDS: FERROUS SULFATE 325 MG TABEC PO SCH (09:55)
[2023-03-13] MEDS: DORZOLAMIDE/TIMOLOL OPHT DROP 10 ML BOTTLE EACHEYE SCH ×2 (09:55→17:30)
[2023-03-13] MEDS: REMEDY ESSENTIAL ZINC PASTE 113 GM TP SCH ×2 (09:55→20:39)
[2023-03-13] MEDS: TOLTERODINE 1 MG TABLET PO SCH ×2 (09:55→17:30)
[2023-03-13] MEDS: levETIRAcetam 500 MG/5 ML LIQUID UDC PO SCH ×2 (09:55→17:30)
[2023-03-13] MEDS: MIRALAX 17 GM POWD.PACK PO SCH ×2 (09:55→17:30)
[2023-03-13] MEDS: FOLIC ACID 1 MG TABLET PO SCH (09:55)
[2023-03-13] MEDS: NEOMY/BACITRA/POLYMYXIN B OINT UD PACKET TP SCH ×2 (09:55→20:39)
[2023-03-13] MEDS: ASPIRIN 81 MG TAB.CHEW PO SCH (17:30)
[2023-03-13] MEDS: OMEGA-3 FATTY ACIDS/FISH OIL CAPSULE PO SCH (17:31)
[2023-03-13] MEDS: MAGNESIUM OXIDE 400 MG TABLET PO SCH (17:31)
[2023-03-13] MEDS: CHOLECALCIFEROL 1,000 UNIT TABLET PO SCH (17:31)
[2023-03-13] MEDS: ATORVASTATIN 20 MG TABLET PO SCH (17:31)
[2023-03-13] MEDS: MULTIVIT, IRON, MIN NO. 8, FA TABLET PO SCH (17:31)
[2023-03-13] MEDS: LATANOPROST OPHT DROP 2.5 ML BOTTLE EACHEYE SCH (20:39)
[2023-03-14] VITALS (10 sets, daily range): TEMP 98.3–98.6; O2SAT 98–99
[2023-03-14] MEDS: IPRATROPIUM/ALBUTEROL SULFATE 3 ML AMPUL.NEB NEB SCH ×4 (01:04→19:12)
[2023-03-14] MEDS: LEVOTHYROXINE SODIUM 112 MCG TABLET PO SCH (05:57)
[2023-03-14] MEDS: HYDROGEN PEROXIDE 3% 118 ML BOTTLE TP SCH ×2 (07:01→19:12)
[2023-03-14] MEDS: BUDESONIDE 0.5 MG/2 ML NEBU NEB SCH ×2 (07:01→19:12)
[2023-03-14] MEDS: DORZOLAMIDE/TIMOLOL OPHT DROP 10 ML BOTTLE EACHEYE SCH ×2 (09:56→16:59)
[2023-03-14] MEDS: FOLIC ACID 1 MG TABLET PO SCH (09:56)
[2023-03-14] MEDS: TOLTERODINE 1 MG TABLET PO SCH ×2 (09:56→16:59)
[2023-03-14] MEDS: FERROUS SULFATE 325 MG TABEC PO SCH (09:56)
[2023-03-14] MEDS: levETIRAcetam 500 MG/5 ML LIQUID UDC PO SCH ×2 (09:57→17:00)
[2023-03-14] MEDS: MIRALAX 17 GM POWD.PACK PO SCH ×2 (09:57→17:00)
[2023-03-14] MEDS: REMEDY ESSENTIAL ZINC PASTE 113 GM TP SCH ×2 (09:58→20:25)
[2023-03-14] MEDS: NEOMY/BACITRA/POLYMYXIN B OINT UD PACKET TP SCH ×2 (09:58→20:25)
[2023-03-14] MEDS: VITAMINS A AND D OINT 42 GM TUBE TP SCH ×2 (09:58→20:25)
[2023-03-14] MEDS: BENZONATATE 100 MG CAPSULE PO PRN (09:59)
[2023-03-14] MEDS: MAGNESIUM OXIDE 400 MG TABLET PO SCH (17:00)
[2023-03-14] MEDS: ASPIRIN 81 MG TAB.CHEW PO SCH (17:00)
[2023-03-14] MEDS: OMEGA-3 FATTY ACIDS/FISH OIL CAPSULE PO SCH (17:00)
[2023-03-14] MEDS: ATORVASTATIN 20 MG TABLET PO SCH (17:00)
[2023-03-14] MEDS: CHOLECALCIFEROL 1,000 UNIT TABLET PO SCH (17:00)
[2023-03-14] MEDS: MULTIVIT, IRON, MIN NO. 8, FA TABLET PO SCH (17:00)
[2023-03-14] MEDS: LATANOPROST OPHT DROP 2.5 ML BOTTLE EACHEYE SCH (20:25)
[2023-03-15] VITALS (11 sets, daily range): TEMP 97.8–98.8; O2SAT 97–100
[2023-03-15] MEDS: IPRATROPIUM/ALBUTEROL SULFATE 3 ML AMPUL.NEB NEB SCH ×4 (01:25→19:14)
[2023-03-15] MEDS: LEVOTHYROXINE SODIUM 112 MCG TABLET PO SCH (06:12)
[2023-03-15] MEDS: BUDESONIDE 0.5 MG/2 ML NEBU NEB SCH ×2 (07:40→19:14)
[2023-03-15] MEDS: NEOMY/BACITRA/POLYMYXIN B OINT UD PACKET TP SCH ×2 (09:00→20:51)
[2023-03-15] MEDS: HYDROGEN PEROXIDE 3% 118 ML BOTTLE TP SCH ×2 (09:35→19:14)
[2023-03-15] MEDS: DORZOLAMIDE/TIMOLOL OPHT DROP 10 ML BOTTLE EACHEYE SCH ×2 (09:43→17:55)
[2023-03-15] MEDS: TOLTERODINE 1 MG TABLET PO SCH ×2 (09:44→17:55)
[2023-03-15] MEDS: FERROUS SULFATE 325 MG TABEC PO SCH (09:48)
[2023-03-15] MEDS: levETIRAcetam 500 MG/5 ML LIQUID UDC PO SCH ×2 (09:48→17:55)
[2023-03-15] MEDS: FOLIC ACID 1 MG TABLET PO SCH (09:48)
[2023-03-15] MEDS: REMEDY ESSENTIAL ZINC PASTE 113 GM TP SCH ×2 (09:49→20:51)
[2023-03-15] MEDS: BENZONATATE 100 MG CAPSULE PO PRN ×2 (09:49→17:58)
[2023-03-15] MEDS: GUAIFENESIN SUGAR FREE 100 MG/5 ML UDC PO PRN ×2 (09:49→17:58)
[2023-03-15] MEDS: MIRALAX 17 GM POWD.PACK PO SCH ×2 (09:49→17:56)
[2023-03-15] MEDS: VITAMINS A AND D OINT 42 GM TUBE TP SCH ×2 (09:49→20:51)
[2023-03-15] MEDS: ATORVASTATIN 20 MG TABLET PO SCH (17:56)
[2023-03-15] MEDS: OMEGA-3 FATTY ACIDS/FISH OIL CAPSULE PO SCH (17:56)
[2023-03-15] MEDS: ASPIRIN 81 MG TAB.CHEW PO SCH (17:56)
[2023-03-15] MEDS: CHOLECALCIFEROL 1,000 UNIT TABLET PO SCH (17:57)
[2023-03-15] MEDS: MULTIVIT, IRON, MIN NO. 8, FA TABLET PO SCH (17:57)
[2023-03-15] MEDS: MAGNESIUM OXIDE 400 MG TABLET PO SCH (17:57)
[2023-03-15] MEDS: LATANOPROST OPHT DROP 2.5 ML BOTTLE EACHEYE SCH (20:51)
[2023-03-16] VITALS (11 sets, daily range): TEMP 97.1–98.6; O2SAT 97–100
[2023-03-16] MEDS: IPRATROPIUM/ALBUTEROL SULFATE 3 ML AMPUL.NEB NEB SCH ×4 (01:02→19:03)
[2023-03-16] MEDS: LEVOTHYROXINE SODIUM 112 MCG TABLET PO SCH (06:27)
[2023-03-16] MEDS: BUDESONIDE 0.5 MG/2 ML NEBU NEB SCH ×2 (07:44→19:03)
[2023-03-16] MEDS: HYDROGEN PEROXIDE 3% 118 ML BOTTLE TP SCH ×2 (09:19→19:03)
[2023-03-16] MEDS: DORZOLAMIDE/TIMOLOL OPHT DROP 10 ML BOTTLE EACHEYE SCH ×2 (09:24→16:00)
[2023-03-16] MEDS: TOLTERODINE 1 MG TABLET PO SCH ×2 (09:25→16:00)
[2023-03-16] MEDS: FERROUS SULFATE 325 MG TABEC PO SCH (09:25)
[2023-03-16] MEDS: levETIRAcetam 500 MG/5 ML LIQUID UDC PO SCH ×2 (09:27→16:01)
[2023-03-16] MEDS: FOLIC ACID 1 MG TABLET PO SCH (09:27)
[2023-03-16] MEDS: MIRALAX 17 GM POWD.PACK PO SCH ×2 (09:28→16:01)
[2023-03-16] MEDS: VITAMINS A AND D OINT 42 GM TUBE TP SCH ×2 (09:29→20:12)
[2023-03-16] MEDS: NEOMY/BACITRA/POLYMYXIN B OINT UD PACKET TP SCH ×2 (09:29→20:11)
[2023-03-16] MEDS: REMEDY ESSENTIAL ZINC PASTE 113 GM TP SCH ×2 (09:29→20:11)
[2023-03-16] MEDS: BENZONATATE 100 MG CAPSULE PO PRN (16:03)
[2023-03-16] MEDS: GUAIFENESIN SUGAR FREE 100 MG/5 ML UDC PO PRN (16:03)
[2023-03-16] MEDS: ATORVASTATIN 20 MG TABLET PO SCH (17:05)
[2023-03-16] MEDS: OMEGA-3 FATTY ACIDS/FISH OIL CAPSULE PO SCH (17:05)
[2023-03-16] MEDS: ASPIRIN 81 MG TAB.CHEW PO SCH (17:05)
[2023-03-16] MEDS: MAGNESIUM OXIDE 400 MG TABLET PO SCH (17:06)
[2023-03-16] MEDS: MULTIVIT, IRON, MIN NO. 8, FA TABLET PO SCH (17:06)
[2023-03-16] MEDS: CHOLECALCIFEROL 1,000 UNIT TABLET PO SCH (17:06)
[2023-03-16] MEDS: LATANOPROST OPHT DROP 2.5 ML BOTTLE EACHEYE SCH (20:11)
[2023-03-17] VITALS (9 sets, daily range): TEMP 97.8–98.4; O2SAT 98–100
[2023-03-17] MEDS: IPRATROPIUM/ALBUTEROL SULFATE 3 ML AMPUL.NEB NEB SCH ×4 (01:08→19:10)
[2023-03-17] MEDS: LEVOTHYROXINE SODIUM 112 MCG TABLET PO SCH (05:36)
[2023-03-17] MEDS: HYDROGEN PEROXIDE 3% 118 ML BOTTLE TP SCH ×2 (07:28→19:10)
[2023-03-17] MEDS: BUDESONIDE 0.5 MG/2 ML NEBU NEB SCH ×2 (07:28→19:10)
[2023-03-17] MEDS: MIRALAX 17 GM POWD.PACK PO SCH ×2 (09:00→17:34)
[2023-03-17] MEDS: REMEDY ESSENTIAL ZINC PASTE 113 GM TP SCH ×2 (09:00→21:00)
[2023-03-17] MEDS: TOLTERODINE 1 MG TABLET PO SCH ×2 (09:00→17:36)
[2023-03-17] MEDS: FERROUS SULFATE 325 MG TABEC PO SCH (09:00)
[2023-03-17] MEDS: NEOMY/BACITRA/POLYMYXIN B OINT UD PACKET TP SCH ×2 (09:00→21:00)
[2023-03-17] MEDS: VITAMINS A AND D OINT 42 GM TUBE TP SCH ×2 (09:00→21:00)
[2023-03-17] MEDS: levETIRAcetam 500 MG/5 ML LIQUID UDC PO SCH ×2 (09:00→17:37)
[2023-03-17] MEDS: FOLIC ACID 1 MG TABLET PO SCH (09:00)
[2023-03-17] MEDS: DORZOLAMIDE/TIMOLOL OPHT DROP 10 ML BOTTLE EACHEYE SCH ×2 (09:00→17:33)
[2023-03-17] MEDS: BENZONATATE 100 MG CAPSULE PO PRN ×2 (10:59→17:47)
[2023-03-17] MEDS: GUAIFENESIN SUGAR FREE 100 MG/5 ML UDC PO PRN ×2 (10:59→17:47)
[2023-03-17] MEDS: ASPIRIN 81 MG TAB.CHEW PO SCH (17:38)
[2023-03-17] MEDS: MAGNESIUM OXIDE 400 MG TABLET PO SCH (17:39)
[2023-03-17] MEDS: MULTIVIT, IRON, MIN NO. 8, FA TABLET PO SCH (17:40)
[2023-03-17] MEDS: CHOLECALCIFEROL 1,000 UNIT TABLET PO SCH (17:40)
[2023-03-17] MEDS: ATORVASTATIN 20 MG TABLET PO SCH (17:42)
[2023-03-17] MEDS: OMEGA-3 FATTY ACIDS/FISH OIL CAPSULE PO SCH (17:43)
[2023-03-17] MEDS: LATANOPROST OPHT DROP 2.5 ML BOTTLE EACHEYE SCH (21:00)
[2023-03-18] VITALS (10 sets, daily range): TEMP 97.6–98.6; O2SAT 97–99
[2023-03-18] MEDS: IPRATROPIUM/ALBUTEROL SULFATE 3 ML AMPUL.NEB NEB SCH ×4 (01:17→19:25)
[2023-03-18] MEDS: LEVOTHYROXINE SODIUM 112 MCG TABLET PO SCH (06:16)
[2023-03-18] MEDS: BUDESONIDE 0.5 MG/2 ML NEBU NEB SCH ×2 (07:30→19:25)
[2023-03-18] MEDS: HYDROGEN PEROXIDE 3% 118 ML BOTTLE TP SCH ×2 (08:47→19:25)
[2023-03-18] MEDS: TOLTERODINE 1 MG TABLET PO SCH ×2 (09:52→17:00)
[2023-03-18] MEDS: DORZOLAMIDE/TIMOLOL OPHT DROP 10 ML BOTTLE EACHEYE SCH ×2 (09:52→17:00)
[2023-03-18] MEDS: REMEDY ESSENTIAL ZINC PASTE 113 GM TP SCH ×2 (09:52→21:12)
[2023-03-18] MEDS: FERROUS SULFATE 325 MG TABEC PO SCH (09:52)
[2023-03-18] MEDS: levETIRAcetam 500 MG/5 ML LIQUID UDC PO SCH ×2 (09:52→17:00)
[2023-03-18] MEDS: FOLIC ACID 1 MG TABLET PO SCH (09:52)
[2023-03-18] MEDS: MIRALAX 17 GM POWD.PACK PO SCH ×2 (09:52→17:56)
[2023-03-18] MEDS: NEOMY/BACITRA/POLYMYXIN B OINT UD PACKET TP SCH ×2 (09:53→21:12)
[2023-03-18] MEDS: VITAMINS A AND D OINT 42 GM TUBE TP SCH ×2 (09:53→21:13)
[2023-03-18] MEDS: CHOLECALCIFEROL 1,000 UNIT TABLET PO SCH (17:52)
[2023-03-18] MEDS: MAGNESIUM OXIDE 400 MG TABLET PO SCH (17:53)
[2023-03-18] MEDS: ASPIRIN 81 MG TAB.CHEW PO SCH (17:58)
[2023-03-18] MEDS: OMEGA-3 FATTY ACIDS/FISH OIL CAPSULE PO SCH (17:59)
[2023-03-18] MEDS: ATORVASTATIN 20 MG TABLET PO SCH (18:00)
[2023-03-18] MEDS: MULTIVIT, IRON, MIN NO. 8, FA TABLET PO SCH (18:08)
[2023-03-18] MEDS: BENZONATATE 100 MG CAPSULE PO PRN (18:10)
[2023-03-18] MEDS: GUAIFENESIN SUGAR FREE 100 MG/5 ML UDC PO PRN (18:13)
[2023-03-18] MEDS: LATANOPROST OPHT DROP 2.5 ML BOTTLE EACHEYE SCH (21:12)
[2023-03-19] VITALS (10 sets, daily range): TEMP 97.5–98.3; O2SAT 97–99
[2023-03-19] MEDS: IPRATROPIUM/ALBUTEROL SULFATE 3 ML AMPUL.NEB NEB SCH ×4 (01:18→19:15)
[2023-03-19] MEDS: LEVOTHYROXINE SODIUM 112 MCG TABLET PO SCH (05:48)
[2023-03-19] MEDS: HYDROGEN PEROXIDE 3% 118 ML BOTTLE TP SCH ×2 (07:37→19:15)
[2023-03-19] MEDS: BUDESONIDE 0.5 MG/2 ML NEBU NEB SCH ×2 (07:37→19:15)
[2023-03-19] MEDS: levETIRAcetam 500 MG/5 ML LIQUID UDC PO SCH ×2 (09:00→17:24)
[2023-03-19] MEDS: DORZOLAMIDE/TIMOLOL OPHT DROP 10 ML BOTTLE EACHEYE SCH ×2 (09:00→17:24)
[2023-03-19] MEDS: TOLTERODINE 1 MG TABLET PO SCH ×2 (09:00→17:24)
[2023-03-19] MEDS: REMEDY ESSENTIAL ZINC PASTE 113 GM TP SCH ×2 (09:00→21:13)
[2023-03-19] MEDS: MIRALAX 17 GM POWD.PACK PO SCH ×2 (09:00→17:24)
[2023-03-19] MEDS: FOLIC ACID 1 MG TABLET PO SCH (09:00)
[2023-03-19] MEDS: FERROUS SULFATE 325 MG TABEC PO SCH (09:00)
[2023-03-19] MEDS: VITAMINS A AND D OINT 42 GM TUBE TP SCH ×2 (09:00→21:13)
[2023-03-19] MEDS: BENZONATATE 100 MG CAPSULE PO PRN (16:23)
[2023-03-19] MEDS: MAGNESIUM OXIDE 400 MG TABLET PO SCH (17:24)
[2023-03-19] MEDS: MULTIVIT, IRON, MIN NO. 8, FA TABLET PO SCH (17:24)
[2023-03-19] MEDS: ATORVASTATIN 20 MG TABLET PO SCH (17:24)
[2023-03-19] MEDS: ASPIRIN 81 MG TAB.CHEW PO SCH (17:24)
[2023-03-19] MEDS: OMEGA-3 FATTY ACIDS/FISH OIL CAPSULE PO SCH (17:24)
[2023-03-19] MEDS: CHOLECALCIFEROL 1,000 UNIT TABLET PO SCH (17:24)
[2023-03-19] MEDS: LATANOPROST OPHT DROP 2.5 ML BOTTLE EACHEYE SCH (21:00)
[2023-03-20] VITALS (10 sets, daily range): TEMP 97.8–98.1; O2SAT 97–99
[2023-03-20] MEDS: IPRATROPIUM/ALBUTEROL SULFATE 3 ML AMPUL.NEB NEB SCH ×4 (01:39→19:11)
[2023-03-20] MEDS: LEVOTHYROXINE SODIUM 112 MCG TABLET PO SCH (05:49)
[2023-03-20] MEDS: BUDESONIDE 0.5 MG/2 ML NEBU NEB SCH ×2 (07:57→19:12)
[2023-03-20] MEDS: HYDROGEN PEROXIDE 3% 118 ML BOTTLE TP SCH ×2 (07:57→19:12)
[2023-03-20] MEDS: FERROUS SULFATE 325 MG TABEC PO SCH (09:17)
[2023-03-20] MEDS: DORZOLAMIDE/TIMOLOL OPHT DROP 10 ML BOTTLE EACHEYE SCH ×2 (09:17→16:36)
[2023-03-20] MEDS: TOLTERODINE 1 MG TABLET PO SCH ×2 (09:17→16:38)
[2023-03-20] MEDS: FOLIC ACID 1 MG TABLET PO SCH (09:19)
[2023-03-20] MEDS: MIRALAX 17 GM POWD.PACK PO SCH ×2 (09:19→16:39)
[2023-03-20] MEDS: levETIRAcetam 500 MG/5 ML LIQUID UDC PO SCH ×2 (09:19→16:38)
[2023-03-20] MEDS: BENZONATATE 100 MG CAPSULE PO PRN ×2 (09:20→17:14)
[2023-03-20] MEDS: VITAMINS A AND D OINT 42 GM TUBE TP SCH ×2 (09:20→21:00)
[2023-03-20] MEDS: REMEDY ESSENTIAL ZINC PASTE 113 GM TP SCH ×2 (09:20→21:00)
[2023-03-20] MEDS: GUAIFENESIN SUGAR FREE 100 MG/5 ML UDC PO PRN (09:21)
[2023-03-20] MEDS: ASPIRIN 81 MG TAB.CHEW PO SCH (17:14)
[2023-03-20] MEDS: CHOLECALCIFEROL 1,000 UNIT TABLET PO SCH (17:14)
[2023-03-20] MEDS: MAGNESIUM OXIDE 400 MG TABLET PO SCH (17:14)
[2023-03-20] MEDS: MULTIVIT, IRON, MIN NO. 8, FA TABLET PO SCH (17:14)
[2023-03-20] MEDS: OMEGA-3 FATTY ACIDS/FISH OIL CAPSULE PO SCH (17:14)
[2023-03-20] MEDS: ATORVASTATIN 20 MG TABLET PO SCH (17:14)
[2023-03-20] MEDS: LATANOPROST OPHT DROP 2.5 ML BOTTLE EACHEYE SCH (21:00)
[2023-03-21] VITALS (10 sets, daily range): TEMP 97.4–98.3; O2SAT 98–99
[2023-03-21] MEDS: IPRATROPIUM/ALBUTEROL SULFATE 3 ML AMPUL.NEB NEB SCH ×4 (01:35→19:58)
[2023-03-21] MEDS: LEVOTHYROXINE SODIUM 112 MCG TABLET PO SCH (06:00)
[2023-03-21] MEDS: BUDESONIDE 0.5 MG/2 ML NEBU NEB SCH ×2 (08:04→19:58)
[2023-03-21] MEDS: HYDROGEN PEROXIDE 3% 118 ML BOTTLE TP SCH ×2 (09:24→19:58)
[2023-03-21] MEDS: FOLIC ACID 1 MG TABLET PO SCH (09:27)
[2023-03-21] MEDS: TOLTERODINE 1 MG TABLET PO SCH ×2 (09:27→17:05)
[2023-03-21] MEDS: FERROUS SULFATE 325 MG TABEC PO SCH (09:27)
[2023-03-21] MEDS: MIRALAX 17 GM POWD.PACK PO SCH ×2 (09:27→17:06)
[2023-03-21] MEDS: DORZOLAMIDE/TIMOLOL OPHT DROP 10 ML BOTTLE EACHEYE SCH ×2 (09:27→17:05)
[2023-03-21] MEDS: levETIRAcetam 500 MG/5 ML LIQUID UDC PO SCH ×2 (09:27→17:06)
[2023-03-21] MEDS: REMEDY ESSENTIAL ZINC PASTE 113 GM TP SCH ×2 (09:28→21:01)
[2023-03-21] MEDS: VITAMINS A AND D OINT 42 GM TUBE TP SCH ×2 (09:28→21:01)
[2023-03-21] MEDS: CHOLECALCIFEROL 1,000 UNIT TABLET PO SCH (17:06)
[2023-03-21] MEDS: ATORVASTATIN 20 MG TABLET PO SCH (17:06)
[2023-03-21] MEDS: OMEGA-3 FATTY ACIDS/FISH OIL CAPSULE PO SCH (17:06)
[2023-03-21] MEDS: MAGNESIUM OXIDE 400 MG TABLET PO SCH (17:06)
[2023-03-21] MEDS: MULTIVIT, IRON, MIN NO. 8, FA TABLET PO SCH (17:06)
[2023-03-21] MEDS: ASPIRIN 81 MG TAB.CHEW PO SCH (17:06)
[2023-03-21] MEDS: GUAIFENESIN SUGAR FREE 100 MG/5 ML UDC PO PRN (17:07)
[2023-03-21] MEDS: BENZONATATE 100 MG CAPSULE PO PRN (17:07)
[2023-03-21] MEDS: LATANOPROST OPHT DROP 2.5 ML BOTTLE EACHEYE SCH (21:01)
[2023-03-22] VITALS (10 sets, daily range): TEMP 97.2–97.8; O2SAT 98–99
[2023-03-22] MEDS: IPRATROPIUM/ALBUTEROL SULFATE 3 ML AMPUL.NEB NEB SCH ×4 (01:29→19:10)
[2023-03-22] MEDS: LEVOTHYROXINE SODIUM 112 MCG TABLET PO SCH (05:42)
[2023-03-22] MEDS: BUDESONIDE 0.5 MG/2 ML NEBU NEB SCH ×2 (08:21→19:10)
[2023-03-22] MEDS: HYDROGEN PEROXIDE 3% 118 ML BOTTLE TP SCH ×2 (09:00→20:55)
[2023-03-22] MEDS: REMEDY ESSENTIAL ZINC PASTE 113 GM TP SCH ×2 (09:13→21:00)
[2023-03-22] MEDS: VITAMINS A AND D OINT 42 GM TUBE TP SCH ×2 (09:13→21:00)
[2023-03-22] MEDS: FERROUS SULFATE 325 MG TABEC PO SCH (09:13)
[2023-03-22] MEDS: levETIRAcetam 500 MG/5 ML LIQUID UDC PO SCH ×2 (09:13→17:06)
[2023-03-22] MEDS: MIRALAX 17 GM POWD.PACK PO SCH ×2 (09:13→17:07)
[2023-03-22] MEDS: TOLTERODINE 1 MG TABLET PO SCH ×2 (09:13→17:06)
[2023-03-22] MEDS: DORZOLAMIDE/TIMOLOL OPHT DROP 10 ML BOTTLE EACHEYE SCH ×2 (09:13→17:05)
[2023-03-22] MEDS: FOLIC ACID 1 MG TABLET PO SCH (09:13)
[2023-03-22] MEDS: ASPIRIN 81 MG TAB.CHEW PO SCH (17:09)
[2023-03-22] MEDS: ATORVASTATIN 20 MG TABLET PO SCH (17:10)
[2023-03-22] MEDS: OMEGA-3 FATTY ACIDS/FISH OIL CAPSULE PO SCH (17:10)
[2023-03-22] MEDS: CHOLECALCIFEROL 1,000 UNIT TABLET PO SCH (17:11)
[2023-03-22] MEDS: MULTIVIT, IRON, MIN NO. 8, FA TABLET PO SCH (17:11)
[2023-03-22] MEDS: MAGNESIUM OXIDE 400 MG TABLET PO SCH (17:11)
[2023-03-22] MEDS: GUAIFENESIN SUGAR FREE 100 MG/5 ML UDC PO PRN (17:25)
[2023-03-22] MEDS: BENZONATATE 100 MG CAPSULE PO PRN (17:25)
[2023-03-22] MEDS: LATANOPROST OPHT DROP 2.5 ML BOTTLE EACHEYE SCH (21:00)
[2023-03-23] VITALS (10 sets, daily range): TEMP 98.4–98.8; O2SAT 98–99
[2023-03-23] MEDS: IPRATROPIUM/ALBUTEROL SULFATE 3 ML AMPUL.NEB NEB SCH ×4 (00:30→19:46)
[2023-03-23] MEDS: LEVOTHYROXINE SODIUM 112 MCG TABLET PO SCH (05:40)
[2023-03-23] MEDS: BUDESONIDE 0.5 MG/2 ML NEBU NEB SCH ×2 (07:46→19:47)
[2023-03-23] MEDS: HYDROGEN PEROXIDE 3% 118 ML BOTTLE TP SCH ×2 (07:46→19:47)
[2023-03-23] MEDS: DORZOLAMIDE/TIMOLOL OPHT DROP 10 ML BOTTLE EACHEYE SCH ×2 (09:32→17:07)
[2023-03-23] MEDS: TOLTERODINE 1 MG TABLET PO SCH ×2 (09:33→17:08)
[2023-03-23] MEDS: FERROUS SULFATE 325 MG TABEC PO SCH (09:33)
[2023-03-23] MEDS: levETIRAcetam 500 MG/5 ML LIQUID UDC PO SCH ×2 (09:35→17:09)
[2023-03-23] MEDS: FOLIC ACID 1 MG TABLET PO SCH (09:35)
[2023-03-23] MEDS: MIRALAX 17 GM POWD.PACK PO SCH ×2 (09:35→17:09)
[2023-03-23] MEDS: BENZONATATE 100 MG CAPSULE PO PRN ×2 (09:36→17:13)
[2023-03-23] MEDS: REMEDY ESSENTIAL ZINC PASTE 113 GM TP SCH ×2 (09:36→20:37)
[2023-03-23] MEDS: VITAMINS A AND D OINT 42 GM TUBE TP SCH ×2 (09:36→20:37)
[2023-03-23] MEDS: GUAIFENESIN SUGAR FREE 100 MG/5 ML UDC PO PRN ×2 (09:36→17:13)
[2023-03-23] MEDS: OMEGA-3 FATTY ACIDS/FISH OIL CAPSULE PO SCH (17:11)
[2023-03-23] MEDS: ATORVASTATIN 20 MG TABLET PO SCH (17:11)
[2023-03-23] MEDS: ASPIRIN 81 MG TAB.CHEW PO SCH (17:11)
[2023-03-23] MEDS: MULTIVIT, IRON, MIN NO. 8, FA TABLET PO SCH (17:12)
[2023-03-23] MEDS: MAGNESIUM OXIDE 400 MG TABLET PO SCH (17:12)
[2023-03-23] MEDS: CHOLECALCIFEROL 1,000 UNIT TABLET PO SCH (17:13)
[2023-03-23] MEDS: LATANOPROST OPHT DROP 2.5 ML BOTTLE EACHEYE SCH (20:37)
[2023-03-24] VITALS (10 sets, daily range): TEMP 98.4–98.5; O2SAT 98–99
[2023-03-24] MEDS: IPRATROPIUM/ALBUTEROL SULFATE 3 ML AMPUL.NEB NEB SCH ×4 (01:32→19:05)
[2023-03-24] MEDS: LEVOTHYROXINE SODIUM 112 MCG TABLET PO SCH (05:45)
[2023-03-24] MEDS: BUDESONIDE 0.5 MG/2 ML NEBU NEB SCH ×2 (07:28→19:06)
[2023-03-24] MEDS: HYDROGEN PEROXIDE 3% 118 ML BOTTLE TP SCH ×2 (08:01→21:03)
[2023-03-24] MEDS: DORZOLAMIDE/TIMOLOL OPHT DROP 10 ML BOTTLE EACHEYE SCH ×2 (09:30→18:00)
[2023-03-24] MEDS: FERROUS SULFATE 325 MG TABEC PO SCH (09:30)
[2023-03-24] MEDS: TOLTERODINE 1 MG TABLET PO SCH ×2 (09:30→18:00)
[2023-03-24] MEDS: VITAMINS A AND D OINT 42 GM TUBE TP SCH ×2 (09:31→20:37)
[2023-03-24] MEDS: FOLIC ACID 1 MG TABLET PO SCH (09:31)
[2023-03-24] MEDS: REMEDY ESSENTIAL ZINC PASTE 113 GM TP SCH ×2 (09:31→20:37)
[2023-03-24] MEDS: levETIRAcetam 500 MG/5 ML LIQUID UDC PO SCH ×2 (09:31→18:00)
[2023-03-24] MEDS: MIRALAX 17 GM POWD.PACK PO SCH ×2 (09:31→18:00)
[2023-03-24] MEDS: BENZONATATE 100 MG CAPSULE PO PRN ×2 (09:41→18:12)
[2023-03-24] MEDS: OMEGA-3 FATTY ACIDS/FISH OIL CAPSULE PO SCH (18:08)
[2023-03-24] MEDS: ASPIRIN 81 MG TAB.CHEW PO SCH (18:08)
[2023-03-24] MEDS: ATORVASTATIN 20 MG TABLET PO SCH (18:08)
[2023-03-24] MEDS: MULTIVIT, IRON, MIN NO. 8, FA TABLET PO SCH (18:09)
[2023-03-24] MEDS: MAGNESIUM OXIDE 400 MG TABLET PO SCH (18:09)
[2023-03-24] MEDS: CHOLECALCIFEROL 1,000 UNIT TABLET PO SCH (18:11)
[2023-03-24] MEDS: GUAIFENESIN SUGAR FREE 100 MG/5 ML UDC PO PRN (18:12)
[2023-03-24] MEDS: LATANOPROST OPHT DROP 2.5 ML BOTTLE EACHEYE SCH (20:37)
[2023-03-25] VITALS (10 sets, daily range): TEMP 98–98.1; O2SAT 98–99
[2023-03-25] MEDS: IPRATROPIUM/ALBUTEROL SULFATE 3 ML AMPUL.NEB NEB SCH ×4 (02:13→20:02)
[2023-03-25] MEDS: LEVOTHYROXINE SODIUM 112 MCG TABLET PO SCH (05:32)
[2023-03-25] MEDS: BUDESONIDE 0.5 MG/2 ML NEBU NEB SCH ×2 (07:57→20:02)
[2023-03-25] MEDS: TOLTERODINE 1 MG TABLET PO SCH ×2 (08:35→16:47)
[2023-03-25] MEDS: FERROUS SULFATE 325 MG TABEC PO SCH (08:35)
[2023-03-25] MEDS: DORZOLAMIDE/TIMOLOL OPHT DROP 10 ML BOTTLE EACHEYE SCH ×2 (08:35→16:47)
[2023-03-25] MEDS: levETIRAcetam 500 MG/5 ML LIQUID UDC PO SCH ×2 (08:35→16:47)
[2023-03-25] MEDS: FOLIC ACID 1 MG TABLET PO SCH (08:35)
[2023-03-25] MEDS: MIRALAX 17 GM POWD.PACK PO SCH ×2 (08:35→16:47)
[2023-03-25] MEDS: REMEDY ESSENTIAL ZINC PASTE 113 GM TP SCH ×2 (08:35→21:22)
[2023-03-25] MEDS: BENZONATATE 100 MG CAPSULE PO PRN ×2 (08:36→17:31)
[2023-03-25] MEDS: VITAMINS A AND D OINT 42 GM TUBE TP SCH ×2 (08:36→21:22)
[2023-03-25] MEDS: GUAIFENESIN SUGAR FREE 100 MG/5 ML UDC PO PRN ×2 (08:36→17:31)
[2023-03-25] MEDS: HYDROGEN PEROXIDE 3% 118 ML BOTTLE TP SCH ×2 (09:15→20:02)
[2023-03-25] MEDS: CHOLECALCIFEROL 1,000 UNIT TABLET PO SCH (17:31)
[2023-03-25] MEDS: ASPIRIN 81 MG TAB.CHEW PO SCH (17:31)
[2023-03-25] MEDS: OMEGA-3 FATTY ACIDS/FISH OIL CAPSULE PO SCH (17:31)
[2023-03-25] MEDS: MAGNESIUM OXIDE 400 MG TABLET PO SCH (17:31)
[2023-03-25] MEDS: MULTIVIT, IRON, MIN NO. 8, FA TABLET PO SCH (17:31)
[2023-03-25] MEDS: ATORVASTATIN 20 MG TABLET PO SCH (17:31)
[2023-03-25] MEDS: LATANOPROST OPHT DROP 2.5 ML BOTTLE EACHEYE SCH (21:22)
[2023-03-26] VITALS (10 sets, daily range): TEMP 97.9–98.3; O2SAT 97–99
[2023-03-26] MEDS: IPRATROPIUM/ALBUTEROL SULFATE 3 ML AMPUL.NEB NEB SCH ×4 (01:11→19:21)
[2023-03-26] MEDS: LEVOTHYROXINE SODIUM 112 MCG TABLET PO SCH (05:35)
[2023-03-26] MEDS: BUDESONIDE 0.5 MG/2 ML NEBU NEB SCH ×2 (07:28→19:21)
[2023-03-26] MEDS: HYDROGEN PEROXIDE 3% 118 ML BOTTLE TP SCH ×2 (08:02→19:22)
[2023-03-26] MEDS: DORZOLAMIDE/TIMOLOL OPHT DROP 10 ML BOTTLE EACHEYE SCH ×2 (08:35→17:01)
[2023-03-26] MEDS: FERROUS SULFATE 325 MG TABEC PO SCH (08:35)
[2023-03-26] MEDS: BENZONATATE 100 MG CAPSULE PO PRN ×2 (08:35→17:11)
[2023-03-26] MEDS: FOLIC ACID 1 MG TABLET PO SCH (08:35)
[2023-03-26] MEDS: GUAIFENESIN SUGAR FREE 100 MG/5 ML UDC PO PRN ×2 (08:35→17:11)
[2023-03-26] MEDS: MIRALAX 17 GM POWD.PACK PO SCH ×2 (08:35→17:01)
[2023-03-26] MEDS: VITAMINS A AND D OINT 42 GM TUBE TP SCH ×2 (08:35→21:36)
[2023-03-26] MEDS: levETIRAcetam 500 MG/5 ML LIQUID UDC PO SCH ×2 (08:35→17:01)
[2023-03-26] MEDS: REMEDY ESSENTIAL ZINC PASTE 113 GM TP SCH ×2 (08:35→21:36)
[2023-03-26] MEDS: TOLTERODINE 1 MG TABLET PO SCH ×2 (08:35→17:01)
[2023-03-26] MEDS: OMEGA-3 FATTY ACIDS/FISH OIL CAPSULE PO SCH (17:11)
[2023-03-26] MEDS: MULTIVIT, IRON, MIN NO. 8, FA TABLET PO SCH (17:11)
[2023-03-26] MEDS: MAGNESIUM OXIDE 400 MG TABLET PO SCH (17:11)
[2023-03-26] MEDS: ATORVASTATIN 20 MG TABLET PO SCH (17:11)
[2023-03-26] MEDS: ASPIRIN 81 MG TAB.CHEW PO SCH (17:11)
[2023-03-26] MEDS: CHOLECALCIFEROL 1,000 UNIT TABLET PO SCH (17:11)
[2023-03-26] MEDS: LATANOPROST OPHT DROP 2.5 ML BOTTLE EACHEYE SCH (21:36)
[2023-03-27] VITALS (10 sets, daily range): TEMP 98.4–98.6; O2SAT 97–99
[2023-03-27] MEDS: IPRATROPIUM/ALBUTEROL SULFATE 3 ML AMPUL.NEB NEB SCH ×4 (01:19→19:14)
[2023-03-27] MEDS: LEVOTHYROXINE SODIUM 112 MCG TABLET PO SCH (05:48)
[2023-03-27] MEDS: HYDROGEN PEROXIDE 3% 118 ML BOTTLE TP SCH ×2 (07:38→19:14)
[2023-03-27] MEDS: BUDESONIDE 0.5 MG/2 ML NEBU NEB SCH ×2 (07:38→19:14)
[2023-03-27] MEDS: TOLTERODINE 1 MG TABLET PO SCH ×2 (09:32→17:14)
[2023-03-27] MEDS: FOLIC ACID 1 MG TABLET PO SCH (09:32)
[2023-03-27] MEDS: MIRALAX 17 GM POWD.PACK PO SCH ×2 (09:32→17:15)
[2023-03-27] MEDS: DORZOLAMIDE/TIMOLOL OPHT DROP 10 ML BOTTLE EACHEYE SCH ×2 (09:32→17:14)
[2023-03-27] MEDS: levETIRAcetam 500 MG/5 ML LIQUID UDC PO SCH ×2 (09:32→17:15)
[2023-03-27] MEDS: VITAMINS A AND D OINT 42 GM TUBE TP SCH ×2 (09:33→21:18)
[2023-03-27] MEDS: REMEDY ESSENTIAL ZINC PASTE 113 GM TP SCH ×2 (09:33→21:18)
[2023-03-27] MEDS: FERROUS SULFATE 325 MG TABEC PO SCH (09:35)
[2023-03-27] MEDS: ASPIRIN 81 MG TAB.CHEW PO SCH (17:16)
[2023-03-27] MEDS: ATORVASTATIN 20 MG TABLET PO SCH (17:17)
[2023-03-27] MEDS: OMEGA-3 FATTY ACIDS/FISH OIL CAPSULE PO SCH (17:17)
[2023-03-27] MEDS: MULTIVIT, IRON, MIN NO. 8, FA TABLET PO SCH (17:18)
[2023-03-27] MEDS: MAGNESIUM OXIDE 400 MG TABLET PO SCH (17:18)
[2023-03-27] MEDS: CHOLECALCIFEROL 1,000 UNIT TABLET PO SCH (17:20)
[2023-03-27] MEDS: LATANOPROST OPHT DROP 2.5 ML BOTTLE EACHEYE SCH (21:18)
[2023-03-27] MEDS: BENZONATATE 100 MG CAPSULE PO PRN (22:37)
[2023-03-28] VITALS (10 sets, daily range): TEMP 97.6–98.4; O2SAT 97–99
[2023-03-28] MEDS: IPRATROPIUM/ALBUTEROL SULFATE 3 ML AMPUL.NEB NEB SCH ×4 (01:14→19:20)
[2023-03-28] MEDS: LEVOTHYROXINE SODIUM 112 MCG TABLET PO SCH (05:40)
[2023-03-28] MEDS: BUDESONIDE 0.5 MG/2 ML NEBU NEB SCH ×2 (07:11→19:20)
[2023-03-28] MEDS: HYDROGEN PEROXIDE 3% 118 ML BOTTLE TP SCH ×2 (07:11→19:20)
[2023-03-28] MEDS: DORZOLAMIDE/TIMOLOL OPHT DROP 10 ML BOTTLE EACHEYE SCH ×2 (09:38→17:28)
[2023-03-28] MEDS: levETIRAcetam 500 MG/5 ML LIQUID UDC PO SCH ×2 (09:41→17:29)
[2023-03-28] MEDS: FOLIC ACID 1 MG TABLET PO SCH (09:41)
[2023-03-28] MEDS: TOLTERODINE 1 MG TABLET PO SCH ×2 (09:41→17:29)
[2023-03-28] MEDS: REMEDY ESSENTIAL ZINC PASTE 113 GM TP SCH ×2 (09:42→21:16)
[2023-03-28] MEDS: MIRALAX 17 GM POWD.PACK PO SCH ×2 (09:42→17:29)
[2023-03-28] MEDS: VITAMINS A AND D OINT 42 GM TUBE TP SCH ×2 (09:42→21:18)
[2023-03-28] MEDS: GUAIFENESIN SUGAR FREE 100 MG/5 ML UDC PO PRN ×2 (09:45→17:33)
[2023-03-28] MEDS: BENZONATATE 100 MG CAPSULE PO PRN ×2 (09:45→17:34)
[2023-03-28] MEDS: FERROUS SULFATE 325 MG TABEC PO SCH (09:48)
[2023-03-28] MEDS: OMEGA-3 FATTY ACIDS/FISH OIL CAPSULE PO SCH (17:30)
[2023-03-28] MEDS: ASPIRIN 81 MG TAB.CHEW PO SCH (17:30)
[2023-03-28] MEDS: MAGNESIUM OXIDE 400 MG TABLET PO SCH (17:32)
[2023-03-28] MEDS: MULTIVIT, IRON, MIN NO. 8, FA TABLET PO SCH (17:32)
[2023-03-28] MEDS: ATORVASTATIN 20 MG TABLET PO SCH (17:32)
[2023-03-28] MEDS: CHOLECALCIFEROL 1,000 UNIT TABLET PO SCH (17:33)
[2023-03-28] MEDS: LATANOPROST OPHT DROP 2.5 ML BOTTLE EACHEYE SCH (21:16)
[2023-03-29] VITALS (10 sets, daily range): TEMP 98–98.4; O2SAT 97–99
[2023-03-29] MEDS: IPRATROPIUM/ALBUTEROL SULFATE 3 ML AMPUL.NEB NEB SCH ×4 (01:02→19:26)
[2023-03-29] MEDS: LEVOTHYROXINE SODIUM 112 MCG TABLET PO SCH (05:36)
[2023-03-29] MEDS: BUDESONIDE 0.5 MG/2 ML NEBU NEB SCH ×2 (07:35→19:26)
[2023-03-29] MEDS: HYDROGEN PEROXIDE 3% 118 ML BOTTLE TP SCH ×2 (08:08→19:26)
[2023-03-29] MEDS: DORZOLAMIDE/TIMOLOL OPHT DROP 10 ML BOTTLE EACHEYE SCH ×2 (09:32→17:09)
[2023-03-29] MEDS: FERROUS SULFATE 325 MG TABEC PO SCH (09:33)
[2023-03-29] MEDS: TOLTERODINE 1 MG TABLET PO SCH ×2 (09:33→17:11)
[2023-03-29] MEDS: FOLIC ACID 1 MG TABLET PO SCH (09:34)
[2023-03-29] MEDS: levETIRAcetam 500 MG/5 ML LIQUID UDC PO SCH ×2 (09:34→17:12)
[2023-03-29] MEDS: REMEDY ESSENTIAL ZINC PASTE 113 GM TP SCH ×2 (09:35→21:23)
[2023-03-29] MEDS: MIRALAX 17 GM POWD.PACK PO SCH ×2 (09:35→17:12)
[2023-03-29] MEDS: VITAMINS A AND D OINT 42 GM TUBE TP SCH ×2 (09:36→21:23)
[2023-03-29] MEDS: ASPIRIN 81 MG TAB.CHEW PO SCH (17:12)
[2023-03-29] MEDS: MULTIVIT, IRON, MIN NO. 8, FA TABLET PO SCH (17:13)
[2023-03-29] MEDS: OMEGA-3 FATTY ACIDS/FISH OIL CAPSULE PO SCH (17:13)
[2023-03-29] MEDS: MAGNESIUM OXIDE 400 MG TABLET PO SCH (17:13)
[2023-03-29] MEDS: ATORVASTATIN 20 MG TABLET PO SCH (17:13)
[2023-03-29] MEDS: CHOLECALCIFEROL 1,000 UNIT TABLET PO SCH (17:14)
[2023-03-29] MEDS: LATANOPROST OPHT DROP 2.5 ML BOTTLE EACHEYE SCH (21:23)
[2023-03-30] VITALS (9 sets, daily range): BP systolic 124; BP diastolic 63; TEMP 97.8–98.4; O2SAT 98–100
[2023-03-30] MEDS: IPRATROPIUM/ALBUTEROL SULFATE 3 ML AMPUL.NEB NEB SCH ×4 (01:13→19:14)
[2023-03-30] MEDS: BENZONATATE 100 MG CAPSULE PO PRN ×2 (01:58→17:43)
[2023-03-30] MEDS: LEVOTHYROXINE SODIUM 112 MCG TABLET PO SCH (06:34)
[2023-03-30] MEDS: BUDESONIDE 0.5 MG/2 ML NEBU NEB SCH ×2 (07:29→19:14)
[2023-03-30] MEDS: HYDROGEN PEROXIDE 3% 118 ML BOTTLE TP SCH ×2 (08:17→19:14)
[2023-03-30] MEDS: DORZOLAMIDE/TIMOLOL OPHT DROP 10 ML BOTTLE EACHEYE SCH ×2 (09:11→17:39)
[2023-03-30] MEDS: FERROUS SULFATE 325 MG TABEC PO SCH (09:11)
[2023-03-30] MEDS: TOLTERODINE 1 MG TABLET PO SCH ×2 (09:11→17:40)
[2023-03-30] MEDS: FOLIC ACID 1 MG TABLET PO SCH (09:12)
[2023-03-30] MEDS: levETIRAcetam 500 MG/5 ML LIQUID UDC PO SCH ×2 (09:13→17:40)
[2023-03-30] MEDS: MIRALAX 17 GM POWD.PACK PO SCH ×2 (09:13→17:40)
[2023-03-30] MEDS: VITAMINS A AND D OINT 42 GM TUBE TP SCH ×2 (09:14→20:40)
[2023-03-30] MEDS: REMEDY ESSENTIAL ZINC PASTE 113 GM TP SCH ×2 (09:14→20:40)
[2023-03-30] MEDS: OMEGA-3 FATTY ACIDS/FISH OIL CAPSULE PO SCH (17:41)
[2023-03-30] MEDS: ASPIRIN 81 MG TAB.CHEW PO SCH (17:41)
[2023-03-30] MEDS: ATORVASTATIN 20 MG TABLET PO SCH (17:41)
[2023-03-30] MEDS: MAGNESIUM OXIDE 400 MG TABLET PO SCH (17:42)
[2023-03-30] MEDS: CHOLECALCIFEROL 1,000 UNIT TABLET PO SCH (17:42)
[2023-03-30] MEDS: MULTIVIT, IRON, MIN NO. 8, FA TABLET PO SCH (17:42)
[2023-03-30] MEDS: GUAIFENESIN SUGAR FREE 100 MG/5 ML UDC PO PRN (17:43)
[2023-03-30] MEDS: LATANOPROST OPHT DROP 2.5 ML BOTTLE EACHEYE SCH (20:40)
[2023-03-31] VITALS (10 sets, daily range): TEMP 98.2–98.3; O2SAT 98–99
[2023-03-31] MEDS: IPRATROPIUM/ALBUTEROL SULFATE 3 ML AMPUL.NEB NEB SCH ×4 (01:50→19:21)
[2023-03-31] MEDS: LEVOTHYROXINE SODIUM 112 MCG TABLET PO SCH (05:32)
[2023-03-31] MEDS: BUDESONIDE 0.5 MG/2 ML NEBU NEB SCH ×2 (07:40→19:21)
[2023-03-31] MEDS: HYDROGEN PEROXIDE 3% 118 ML BOTTLE TP SCH ×2 (08:46→19:21)
[2023-03-31] MEDS: FERROUS SULFATE 325 MG TABEC PO SCH (09:11)
[2023-03-31] MEDS: MIRALAX 17 GM POWD.PACK PO SCH ×2 (09:11→16:41)
[2023-03-31] MEDS: TOLTERODINE 1 MG TABLET PO SCH ×2 (09:11→16:41)
[2023-03-31] MEDS: VITAMINS A AND D OINT 42 GM TUBE TP SCH ×2 (09:11→20:08)
[2023-03-31] MEDS: DORZOLAMIDE/TIMOLOL OPHT DROP 10 ML BOTTLE EACHEYE SCH ×2 (09:11→16:41)
[2023-03-31] MEDS: REMEDY ESSENTIAL ZINC PASTE 113 GM TP SCH ×2 (09:11→20:08)
[2023-03-31] MEDS: FOLIC ACID 1 MG TABLET PO SCH (09:11)
[2023-03-31] MEDS: levETIRAcetam 500 MG/5 ML LIQUID UDC PO SCH ×2 (09:11→16:41)
[2023-03-31] MEDS: BENZONATATE 100 MG CAPSULE PO PRN (09:13)
[2023-03-31] MEDS: GUAIFENESIN SUGAR FREE 100 MG/5 ML UDC PO PRN (09:13)
[2023-03-31] MEDS: OMEGA-3 FATTY ACIDS/FISH OIL CAPSULE PO SCH (17:16)
[2023-03-31] MEDS: ASPIRIN 81 MG TAB.CHEW PO SCH (17:16)
[2023-03-31] MEDS: MULTIVIT, IRON, MIN NO. 8, FA TABLET PO SCH (17:16)
[2023-03-31] MEDS: MAGNESIUM OXIDE 400 MG TABLET PO SCH (17:16)
[2023-03-31] MEDS: ATORVASTATIN 20 MG TABLET PO SCH (17:16)
[2023-03-31] MEDS: CHOLECALCIFEROL 1,000 UNIT TABLET PO SCH (17:16)
[2023-03-31] MEDS: LATANOPROST OPHT DROP 2.5 ML BOTTLE EACHEYE SCH (20:08)
[2023-04-01] VITALS (10 sets, daily range): BP systolic 124; BP diastolic 58; TEMP 97.4–98.3; O2SAT 97–100
[2023-04-01] MEDS: IPRATROPIUM/ALBUTEROL SULFATE 3 ML AMPUL.NEB NEB SCH ×4 (01:01→20:14)
[2023-04-01] MEDS: LEVOTHYROXINE SODIUM 112 MCG TABLET PO SCH (05:40)
[2023-04-01] MEDS: BUDESONIDE 0.5 MG/2 ML NEBU NEB SCH ×2 (08:10→20:14)
[2023-04-01] MEDS: HYDROGEN PEROXIDE 3% 118 ML BOTTLE TP SCH ×2 (08:11→18:51)
[2023-04-01] MEDS: DORZOLAMIDE/TIMOLOL OPHT DROP 10 ML BOTTLE EACHEYE SCH ×2 (09:23→16:46)
[2023-04-01] MEDS: FERROUS SULFATE 325 MG TABEC PO SCH (09:23)
[2023-04-01] MEDS: TOLTERODINE 1 MG TABLET PO SCH ×2 (09:23→16:42)
[2023-04-01] MEDS: BENZONATATE 100 MG CAPSULE PO PRN ×2 (09:24→16:44)
[2023-04-01] MEDS: MIRALAX 17 GM POWD.PACK PO SCH ×2 (09:24→16:43)
[2023-04-01] MEDS: levETIRAcetam 500 MG/5 ML LIQUID UDC PO SCH ×2 (09:24→16:43)
[2023-04-01] MEDS: REMEDY ESSENTIAL ZINC PASTE 113 GM TP SCH ×2 (09:24→20:36)
[2023-04-01] MEDS: VITAMINS A AND D OINT 42 GM TUBE TP SCH ×2 (09:24→20:36)
[2023-04-01] MEDS: FOLIC ACID 1 MG TABLET PO SCH (09:24)
[2023-04-01] MEDS: GUAIFENESIN SUGAR FREE 100 MG/5 ML UDC PO PRN ×2 (09:24→16:44)
[2023-04-01] MEDS: CHOLECALCIFEROL 1,000 UNIT TABLET PO SCH (17:13)
[2023-04-01] MEDS: ATORVASTATIN 20 MG TABLET PO SCH (17:13)
[2023-04-01] MEDS: MAGNESIUM OXIDE 400 MG TABLET PO SCH (17:13)
[2023-04-01] MEDS: MULTIVIT, IRON, MIN NO. 8, FA TABLET PO SCH (17:13)
[2023-04-01] MEDS: OMEGA-3 FATTY ACIDS/FISH OIL CAPSULE PO SCH (17:13)
[2023-04-01] MEDS: ASPIRIN 81 MG TAB.CHEW PO SCH (17:13)
[2023-04-01] MEDS: LATANOPROST OPHT DROP 2.5 ML BOTTLE EACHEYE SCH (20:36)
[2023-04-02] VITALS (9 sets, daily range): TEMP 97.8; O2SAT 97–99
[2023-04-02] MEDS: IPRATROPIUM/ALBUTEROL SULFATE 3 ML AMPUL.NEB NEB SCH ×4 (01:31→19:04)
[2023-04-02] MEDS: LEVOTHYROXINE SODIUM 112 MCG TABLET PO SCH (05:43)
[2023-04-02] MEDS: BUDESONIDE 0.5 MG/2 ML NEBU NEB SCH ×2 (07:30→19:04)
[2023-04-02] MEDS: HYDROGEN PEROXIDE 3% 118 ML BOTTLE TP SCH ×2 (09:02→19:04)
[2023-04-02] MEDS: DORZOLAMIDE/TIMOLOL OPHT DROP 10 ML BOTTLE EACHEYE SCH ×2 (09:29→16:46)
[2023-04-02] MEDS: FERROUS SULFATE 325 MG TABEC PO SCH (09:29)
[2023-04-02] MEDS: FOLIC ACID 1 MG TABLET PO SCH (09:29)
[2023-04-02] MEDS: TOLTERODINE 1 MG TABLET PO SCH ×2 (09:29→16:46)
[2023-04-02] MEDS: MIRALAX 17 GM POWD.PACK PO SCH ×2 (09:31→16:48)
[2023-04-02] MEDS: levETIRAcetam 500 MG/5 ML LIQUID UDC PO SCH ×2 (09:31→16:46)
[2023-04-02] MEDS: GUAIFENESIN SUGAR FREE 100 MG/5 ML UDC PO PRN (09:32)
[2023-04-02] MEDS: BENZONATATE 100 MG CAPSULE PO PRN (09:32)
[2023-04-02] MEDS: VITAMINS A AND D OINT 42 GM TUBE TP SCH ×2 (09:33→20:46)
[2023-04-02] MEDS: REMEDY ESSENTIAL ZINC PASTE 113 GM TP SCH ×2 (09:33→20:46)
[2023-04-02] MEDS: MULTIVIT, IRON, MIN NO. 8, FA TABLET PO SCH (17:20)
[2023-04-02] MEDS: ASPIRIN 81 MG TAB.CHEW PO SCH (17:20)
[2023-04-02] MEDS: CHOLECALCIFEROL 1,000 UNIT TABLET PO SCH (17:20)
[2023-04-02] MEDS: ATORVASTATIN 20 MG TABLET PO SCH (17:20)
[2023-04-02] MEDS: MAGNESIUM OXIDE 400 MG TABLET PO SCH (17:20)
[2023-04-02] MEDS: OMEGA-3 FATTY ACIDS/FISH OIL CAPSULE PO SCH (17:20)
[2023-04-02] MEDS: LATANOPROST OPHT DROP 2.5 ML BOTTLE EACHEYE SCH (20:46)
[2023-04-03] VITALS (11 sets, daily range): TEMP 97.7–98; O2SAT 98–99
[2023-04-03] MEDS: IPRATROPIUM/ALBUTEROL SULFATE 3 ML AMPUL.NEB NEB SCH ×4 (01:06→19:08)
[2023-04-03] MEDS: LEVOTHYROXINE SODIUM 112 MCG TABLET PO SCH (05:30)
[2023-04-03] MEDS: BUDESONIDE 0.5 MG/2 ML NEBU NEB SCH ×2 (07:37→19:08)
[2023-04-03] MEDS: HYDROGEN PEROXIDE 3% 118 ML BOTTLE TP SCH ×2 (07:37→19:08)
[2023-04-03] MEDS: TOLTERODINE 1 MG TABLET PO SCH ×2 (09:44→17:00)
[2023-04-03] MEDS: FOLIC ACID 1 MG TABLET PO SCH (09:46)
[2023-04-03] MEDS: levETIRAcetam 500 MG/5 ML LIQUID UDC PO SCH ×2 (09:48→17:01)
[2023-04-03] MEDS: MIRALAX 17 GM POWD.PACK PO SCH ×2 (09:50→17:02)
[2023-04-03] MEDS: REMEDY ESSENTIAL ZINC PASTE 113 GM TP SCH ×2 (09:50→20:09)
[2023-04-03] MEDS: VITAMINS A AND D OINT 42 GM TUBE TP SCH ×2 (09:51→20:09)
[2023-04-03] MEDS: DORZOLAMIDE/TIMOLOL OPHT DROP 10 ML BOTTLE EACHEYE SCH ×2 (09:52→16:59)
[2023-04-03] MEDS: FERROUS SULFATE 325 MG TABEC PO SCH (09:52)
[2023-04-03] MEDS: BENZONATATE 100 MG CAPSULE PO PRN ×2 (09:54→17:06)
[2023-04-03] MEDS: ASPIRIN 81 MG TAB.CHEW PO SCH (17:02)
[2023-04-03] MEDS: OMEGA-3 FATTY ACIDS/FISH OIL CAPSULE PO SCH (17:02)
[2023-04-03] MEDS: MAGNESIUM OXIDE 400 MG TABLET PO SCH (17:03)
[2023-04-03] MEDS: ATORVASTATIN 20 MG TABLET PO SCH (17:03)
[2023-04-03] MEDS: CHOLECALCIFEROL 1,000 UNIT TABLET PO SCH (17:04)
[2023-04-03] MEDS: MULTIVIT, IRON, MIN NO. 8, FA TABLET PO SCH (17:04)
[2023-04-03] MEDS: GUAIFENESIN SUGAR FREE 100 MG/5 ML UDC PO PRN (17:07)
[2023-04-03] MEDS: LATANOPROST OPHT DROP 2.5 ML BOTTLE EACHEYE SCH (20:09)
[2023-04-04] VITALS (10 sets, daily range): TEMP 97.6–97.9; O2SAT 98–99
[2023-04-04] MEDS: IPRATROPIUM/ALBUTEROL SULFATE 3 ML AMPUL.NEB NEB SCH ×4 (01:16→19:17)
[2023-04-04] MEDS: LEVOTHYROXINE SODIUM 112 MCG TABLET PO SCH (05:53)
[2023-04-04] MEDS: BUDESONIDE 0.5 MG/2 ML NEBU NEB SCH ×2 (07:15→19:17)
[2023-04-04] MEDS: HYDROGEN PEROXIDE 3% 118 ML BOTTLE TP SCH ×2 (07:15→19:17)
[2023-04-04] MEDS: DORZOLAMIDE/TIMOLOL OPHT DROP 10 ML BOTTLE EACHEYE SCH ×2 (09:42→16:55)
[2023-04-04] MEDS: TOLTERODINE 1 MG TABLET PO SCH ×2 (09:42→16:57)
[2023-04-04] MEDS: FERROUS SULFATE 325 MG TABEC PO SCH (09:42)
[2023-04-04] MEDS: levETIRAcetam 500 MG/5 ML LIQUID UDC PO SCH ×2 (09:44→16:57)
[2023-04-04] MEDS: MIRALAX 17 GM POWD.PACK PO SCH ×2 (09:44→16:58)
[2023-04-04] MEDS: REMEDY ESSENTIAL ZINC PASTE 113 GM TP SCH ×2 (09:44→20:33)
[2023-04-04] MEDS: FOLIC ACID 1 MG TABLET PO SCH (09:44)
[2023-04-04] MEDS: VITAMINS A AND D OINT 42 GM TUBE TP SCH ×2 (09:44→20:33)
[2023-04-04] MEDS: GUAIFENESIN SUGAR FREE 100 MG/5 ML UDC PO PRN (10:25)
[2023-04-04] MEDS: BENZONATATE 100 MG CAPSULE PO PRN ×2 (10:25→18:08)
[2023-04-04] MEDS: OMEGA-3 FATTY ACIDS/FISH OIL CAPSULE PO SCH (17:00)
[2023-04-04] MEDS: ATORVASTATIN 20 MG TABLET PO SCH (17:00)
[2023-04-04] MEDS: CHOLECALCIFEROL 1,000 UNIT TABLET PO SCH (17:00)
[2023-04-04] MEDS: MULTIVIT, IRON, MIN NO. 8, FA TABLET PO SCH (17:00)
[2023-04-04] MEDS: MAGNESIUM OXIDE 400 MG TABLET PO SCH (17:00)
[2023-04-04] MEDS: ASPIRIN 81 MG TAB.CHEW PO SCH (17:00)
[2023-04-04] MEDS: LATANOPROST OPHT DROP 2.5 ML BOTTLE EACHEYE SCH (20:33)
[2023-04-05] VITALS (10 sets, daily range): TEMP 98; O2SAT 98–99
[2023-04-05] MEDS: IPRATROPIUM/ALBUTEROL SULFATE 3 ML AMPUL.NEB NEB SCH ×4 (01:03→19:01)
[2023-04-05] MEDS: LEVOTHYROXINE SODIUM 112 MCG TABLET PO SCH (06:04)
[2023-04-05] MEDS: BUDESONIDE 0.5 MG/2 ML NEBU NEB SCH ×2 (07:30→19:01)
[2023-04-05] MEDS: HYDROGEN PEROXIDE 3% 118 ML BOTTLE TP SCH ×2 (08:53→19:02)
[2023-04-05] MEDS: DORZOLAMIDE/TIMOLOL OPHT DROP 10 ML BOTTLE EACHEYE SCH ×2 (09:37→16:44)
[2023-04-05] MEDS: TOLTERODINE 1 MG TABLET PO SCH ×2 (09:38→16:44)
[2023-04-05] MEDS: FERROUS SULFATE 325 MG TABEC PO SCH (09:41)
[2023-04-05] MEDS: levETIRAcetam 500 MG/5 ML LIQUID UDC PO SCH ×2 (09:41→16:45)
[2023-04-05] MEDS: FOLIC ACID 1 MG TABLET PO SCH (09:41)
[2023-04-05] MEDS: MIRALAX 17 GM POWD.PACK PO SCH ×2 (09:42→16:45)
[2023-04-05] MEDS: REMEDY ESSENTIAL ZINC PASTE 113 GM TP SCH ×2 (09:42→20:41)
[2023-04-05] MEDS: VITAMINS A AND D OINT 42 GM TUBE TP SCH ×2 (09:42→20:41)
[2023-04-05] MEDS: BENZONATATE 100 MG CAPSULE PO PRN ×2 (09:43→17:27)
[2023-04-05] MEDS: MAGNESIUM OXIDE 400 MG TABLET PO SCH (17:27)
[2023-04-05] MEDS: ATORVASTATIN 20 MG TABLET PO SCH (17:27)
[2023-04-05] MEDS: OMEGA-3 FATTY ACIDS/FISH OIL CAPSULE PO SCH (17:27)
[2023-04-05] MEDS: CHOLECALCIFEROL 1,000 UNIT TABLET PO SCH (17:27)
[2023-04-05] MEDS: ASPIRIN 81 MG TAB.CHEW PO SCH (17:27)
[2023-04-05] MEDS: MULTIVIT, IRON, MIN NO. 8, FA TABLET PO SCH (17:27)
[2023-04-05] MEDS: GUAIFENESIN SUGAR FREE 100 MG/5 ML UDC PO PRN (17:27)
[2023-04-05] MEDS: LATANOPROST OPHT DROP 2.5 ML BOTTLE EACHEYE SCH (20:41)
[2023-04-06] VITALS (10 sets, daily range): TEMP 97.5–98.2; O2SAT 98–99
[2023-04-06] MEDS: IPRATROPIUM/ALBUTEROL SULFATE 3 ML AMPUL.NEB NEB SCH ×4 (01:30→20:00)
[2023-04-06] MEDS: LEVOTHYROXINE SODIUM 112 MCG TABLET PO SCH (06:07)
[2023-04-06] MEDS: HYDROGEN PEROXIDE 3% 118 ML BOTTLE TP SCH ×2 (07:25→21:01)
[2023-04-06] MEDS: BUDESONIDE 0.5 MG/2 ML NEBU NEB SCH ×2 (07:25→20:00)
[2023-04-06] MEDS: DORZOLAMIDE/TIMOLOL OPHT DROP 10 ML BOTTLE EACHEYE SCH ×2 (08:54→17:38)
[2023-04-06] MEDS: TOLTERODINE 1 MG TABLET PO SCH ×2 (08:54→17:38)
[2023-04-06] MEDS: FERROUS SULFATE 325 MG TABEC PO SCH (08:54)
[2023-04-06] MEDS: FOLIC ACID 1 MG TABLET PO SCH (08:54)
[2023-04-06] MEDS: levETIRAcetam 500 MG/5 ML LIQUID UDC PO SCH ×2 (08:55→17:38)
[2023-04-06] MEDS: REMEDY ESSENTIAL ZINC PASTE 113 GM TP SCH ×2 (08:56→20:50)
[2023-04-06] MEDS: MIRALAX 17 GM POWD.PACK PO SCH ×2 (08:56→17:38)
[2023-04-06] MEDS: VITAMINS A AND D OINT 42 GM TUBE TP SCH ×2 (08:56→20:50)
[2023-04-06] MEDS: ASPIRIN 81 MG TAB.CHEW PO SCH (17:38)
[2023-04-06] MEDS: MULTIVIT, IRON, MIN NO. 8, FA TABLET PO SCH (17:39)
[2023-04-06] MEDS: CHOLECALCIFEROL 1,000 UNIT TABLET PO SCH (17:39)
[2023-04-06] MEDS: ATORVASTATIN 20 MG TABLET PO SCH (17:39)
[2023-04-06] MEDS: MAGNESIUM OXIDE 400 MG TABLET PO SCH (17:39)
[2023-04-06] MEDS: OMEGA-3 FATTY ACIDS/FISH OIL CAPSULE PO SCH (17:39)
[2023-04-06] MEDS: NYSTATIN CREAM 30 GM TUBE TP SCH (20:50)
[2023-04-06] MEDS: LATANOPROST OPHT DROP 2.5 ML BOTTLE EACHEYE SCH (20:50)
[2023-04-07] VITALS (10 sets, daily range): TEMP 97.9–98; O2SAT 98–99
[2023-04-07] MEDS: IPRATROPIUM/ALBUTEROL SULFATE 3 ML AMPUL.NEB NEB SCH ×4 (01:45→19:03)
[2023-04-07] MEDS: BENZONATATE 100 MG CAPSULE PO PRN (01:52)
[2023-04-07] MEDS: LEVOTHYROXINE SODIUM 112 MCG TABLET PO SCH (06:13)
[2023-04-07] MEDS: BUDESONIDE 0.5 MG/2 ML NEBU NEB SCH ×2 (07:38→19:03)
[2023-04-07] MEDS: HYDROGEN PEROXIDE 3% 118 ML BOTTLE TP SCH ×2 (09:00→19:03)
[2023-04-07] MEDS: TOLTERODINE 1 MG TABLET PO SCH ×2 (09:46→16:46)
[2023-04-07] MEDS: DORZOLAMIDE/TIMOLOL OPHT DROP 10 ML BOTTLE EACHEYE SCH ×2 (09:46→16:46)
[2023-04-07] MEDS: FOLIC ACID 1 MG TABLET PO SCH (09:47)
[2023-04-07] MEDS: FERROUS SULFATE 325 MG TABEC PO SCH (09:47)
[2023-04-07] MEDS: REMEDY ESSENTIAL ZINC PASTE 113 GM TP SCH ×2 (09:50→20:57)
[2023-04-07] MEDS: levETIRAcetam 500 MG/5 ML LIQUID UDC PO SCH ×2 (09:50→16:46)
[2023-04-07] MEDS: VITAMINS A AND D OINT 42 GM TUBE TP SCH ×2 (09:50→20:57)
[2023-04-07] MEDS: MIRALAX 17 GM POWD.PACK PO SCH ×2 (09:50→16:47)
[2023-04-07] MEDS: NYSTATIN CREAM 30 GM TUBE TP SCH ×2 (09:50→20:57)
[2023-04-07] MEDS: ATORVASTATIN 20 MG TABLET PO SCH (17:48)
[2023-04-07] MEDS: OMEGA-3 FATTY ACIDS/FISH OIL CAPSULE PO SCH (17:48)
[2023-04-07] MEDS: MULTIVIT, IRON, MIN NO. 8, FA TABLET PO SCH (17:48)
[2023-04-07] MEDS: ASPIRIN 81 MG TAB.CHEW PO SCH (17:48)
[2023-04-07] MEDS: MAGNESIUM OXIDE 400 MG TABLET PO SCH (17:48)
[2023-04-07] MEDS: CHOLECALCIFEROL 1,000 UNIT TABLET PO SCH (17:48)
[2023-04-07] MEDS: LATANOPROST OPHT DROP 2.5 ML BOTTLE EACHEYE SCH (20:57)
[2023-04-08] VITALS (11 sets, daily range): TEMP 97.7–98.2; O2SAT 98–99
[2023-04-08] MEDS: IPRATROPIUM/ALBUTEROL SULFATE 3 ML AMPUL.NEB NEB SCH ×4 (00:55→19:13)
[2023-04-08] MEDS: LEVOTHYROXINE SODIUM 112 MCG TABLET PO SCH (06:11)
[2023-04-08] MEDS: BUDESONIDE 0.5 MG/2 ML NEBU NEB SCH ×2 (07:35→19:13)
[2023-04-08] MEDS: HYDROGEN PEROXIDE 3% 118 ML BOTTLE TP SCH ×2 (07:36→19:13)
[2023-04-08] MEDS: DORZOLAMIDE/TIMOLOL OPHT DROP 10 ML BOTTLE EACHEYE SCH ×2 (09:14→17:35)
[2023-04-08] MEDS: FERROUS SULFATE 325 MG TABEC PO SCH (09:15)
[2023-04-08] MEDS: TOLTERODINE 1 MG TABLET PO SCH ×2 (09:15→17:35)
[2023-04-08] MEDS: FOLIC ACID 1 MG TABLET PO SCH (09:15)
[2023-04-08] MEDS: levETIRAcetam 500 MG/5 ML LIQUID UDC PO SCH ×2 (09:16→17:35)
[2023-04-08] MEDS: NYSTATIN CREAM 30 GM TUBE TP SCH ×2 (09:16→20:46)
[2023-04-08] MEDS: MIRALAX 17 GM POWD.PACK PO SCH ×2 (09:16→17:35)
[2023-04-08] MEDS: GUAIFENESIN SUGAR FREE 100 MG/5 ML UDC PO PRN ×2 (09:17→17:36)
[2023-04-08] MEDS: VITAMINS A AND D OINT 42 GM TUBE TP SCH ×2 (09:17→20:46)
[2023-04-08] MEDS: BENZONATATE 100 MG CAPSULE PO PRN ×2 (09:17→17:36)
[2023-04-08] MEDS: REMEDY ESSENTIAL ZINC PASTE 113 GM TP SCH ×2 (09:17→20:46)
[2023-04-08] MEDS: ATORVASTATIN 20 MG TABLET PO SCH (17:35)
[2023-04-08] MEDS: ASPIRIN 81 MG TAB.CHEW PO SCH (17:35)
[2023-04-08] MEDS: MAGNESIUM OXIDE 400 MG TABLET PO SCH (17:35)
[2023-04-08] MEDS: OMEGA-3 FATTY ACIDS/FISH OIL CAPSULE PO SCH (17:35)
[2023-04-08] MEDS: CHOLECALCIFEROL 1,000 UNIT TABLET PO SCH (17:36)
[2023-04-08] MEDS: MULTIVIT, IRON, MIN NO. 8, FA TABLET PO SCH (17:36)
[2023-04-08] MEDS: LATANOPROST OPHT DROP 2.5 ML BOTTLE EACHEYE SCH (20:46)
[2023-04-09] VITALS (10 sets, daily range): TEMP 97.8–98.4; O2SAT 97–99
[2023-04-09] MEDS: IPRATROPIUM/ALBUTEROL SULFATE 3 ML AMPUL.NEB NEB SCH ×4 (01:30→19:12)
[2023-04-09] MEDS: LEVOTHYROXINE SODIUM 112 MCG TABLET PO SCH (05:43)
[2023-04-09 07:00] LABS: BASOPHILS % (AUTO) 0.5 % (0.0-2.0); EOSINOPHILS # (AUTO) 0.2 K/uL (0.0-0.7); EOSINOPHILS % (AUTO) 2.8 % (0.0-7.0); HEMATOCRIT 33.3 % (31.2-41.9); LYMPHOCYTES # (AUTO) 1.5 K/uL (0.8-4.8); LYMPHOCYTES % (AUTO) 26.7 % (20.5-51.5); MEAN CORPUSCULAR HGB CONC 33 g/dL (32.3-35.6); MEAN CORPUSCULAR VOLUME 87.9 fL (75.5-95.3); MONOCYTES # (AUTO) 0.7 K/uL (0.1-1.30); MONOCYTES % (AUTO) 12.8 % (0.0-11.0); NEUTROPHILS # (AUTO) 3.2 K/uL (1.8-8.9); NEUTROPHILS % (AUTO) 57.2 % (38.5-71.5); PLATELET COUNT (AUTO) 198 K/uL (179-408); RED BLOOD CELL COUNT(AUTO) 3.78 MIL/uL (3.63-4.92); RED CELL DISTRIBUTION WIDTH 15.2 % (12.3-17.7); WHITE BLOOD COUNT (AUTO) 5.5 K/uL (3.8-11.8)
[2023-04-09 07:04] LABS: DIFFERENTIAL COMMENT 1
[2023-04-09] MEDS: BUDESONIDE 0.5 MG/2 ML NEBU NEB SCH ×2 (07:26→19:12)
[2023-04-09] MEDS: HYDROGEN PEROXIDE 3% 118 ML BOTTLE TP SCH ×2 (08:09→19:12)
[2023-04-09 08:13] LABS: CALCIUM 8.7 mg/dL (8.5-10.1); CARBON DIOXIDE 32 mmol/L (21-32); CHLORIDE 96 mmol/L (98-107); CREATININE 0.6 mg/dL (0.6-1.3); GLUCOSE 95 mg/dL (74-106); MAGNESIUM 1.8 mg/dL (1.8-2.4); PHOSPHOROUS 4.5 mg/dL (2.5-4.9); SODIUM SERUM 134 mmol/L (136-145); UREA NITROGEN, BLOOD 17 mg/dL (7-18)
[2023-04-09] MEDS: GUAIFENESIN SUGAR FREE 100 MG/5 ML UDC PO PRN ×2 (09:05→17:07)
[2023-04-09] MEDS: DORZOLAMIDE/TIMOLOL OPHT DROP 10 ML BOTTLE EACHEYE SCH ×2 (09:05→17:06)
[2023-04-09] MEDS: BENZONATATE 100 MG CAPSULE PO PRN ×2 (09:05→17:07)
[2023-04-09] MEDS: TOLTERODINE 1 MG TABLET PO SCH ×2 (09:06→17:06)
[2023-04-09] MEDS: FERROUS SULFATE 325 MG TABEC PO SCH (09:06)
[2023-04-09] MEDS: MIRALAX 17 GM POWD.PACK PO SCH ×2 (09:07→17:06)
[2023-04-09] MEDS: NYSTATIN CREAM 30 GM TUBE TP SCH ×2 (09:07→21:20)
[2023-04-09] MEDS: REMEDY ESSENTIAL ZINC PASTE 113 GM TP SCH ×2 (09:07→21:20)
[2023-04-09] MEDS: levETIRAcetam 500 MG/5 ML LIQUID UDC PO SCH ×2 (09:07→17:06)
[2023-04-09] MEDS: VITAMINS A AND D OINT 42 GM TUBE TP SCH ×2 (09:07→21:20)
[2023-04-09] MEDS: FOLIC ACID 1 MG TABLET PO SCH (09:07)
[2023-04-09] MEDS: MULTIVIT, IRON, MIN NO. 8, FA TABLET PO SCH (17:06)
[2023-04-09] MEDS: MAGNESIUM OXIDE 400 MG TABLET PO SCH (17:06)
[2023-04-09] MEDS: OMEGA-3 FATTY ACIDS/FISH OIL CAPSULE PO SCH (17:06)
[2023-04-09] MEDS: CHOLECALCIFEROL 1,000 UNIT TABLET PO SCH (17:06)
[2023-04-09] MEDS: ATORVASTATIN 20 MG TABLET PO SCH (17:06)
[2023-04-09] MEDS: ASPIRIN 81 MG TAB.CHEW PO SCH (17:06)
[2023-04-09] MEDS: LATANOPROST OPHT DROP 2.5 ML BOTTLE EACHEYE SCH (21:21)
[2023-04-10] VITALS (10 sets, daily range): TEMP 98.1–98.8; O2SAT 97–99
[2023-04-10] MEDS: IPRATROPIUM/ALBUTEROL SULFATE 3 ML AMPUL.NEB NEB SCH ×4 (00:31→19:21)
[2023-04-10] MEDS: LEVOTHYROXINE SODIUM 112 MCG TABLET PO SCH (05:27)
[2023-04-10] MEDS: BUDESONIDE 0.5 MG/2 ML NEBU NEB SCH ×2 (07:36→19:21)
[2023-04-10] MEDS: HYDROGEN PEROXIDE 3% 118 ML BOTTLE TP SCH ×2 (07:36→19:21)
[2023-04-10] MEDS: TOLTERODINE 1 MG TABLET PO SCH ×2 (08:54→17:54)
[2023-04-10] MEDS: FOLIC ACID 1 MG TABLET PO SCH (08:54)
[2023-04-10] MEDS: FERROUS SULFATE 325 MG TABEC PO SCH (08:55)
[2023-04-10] MEDS: REMEDY ESSENTIAL ZINC PASTE 113 GM TP SCH ×2 (08:55→20:25)
[2023-04-10] MEDS: NYSTATIN CREAM 30 GM TUBE TP SCH ×2 (08:55→20:25)
[2023-04-10] MEDS: VITAMINS A AND D OINT 42 GM TUBE TP SCH ×2 (08:56→20:26)
[2023-04-10] MEDS: MIRALAX 17 GM POWD.PACK PO SCH ×2 (08:57→17:55)
[2023-04-10] MEDS: BENZONATATE 100 MG CAPSULE PO PRN ×2 (08:57→18:15)
[2023-04-10] MEDS: levETIRAcetam 500 MG/5 ML LIQUID UDC PO SCH ×2 (08:58→17:00)
[2023-04-10] MEDS: GUAIFENESIN SUGAR FREE 100 MG/5 ML UDC PO PRN ×2 (08:58→18:15)
[2023-04-10] MEDS: DORZOLAMIDE/TIMOLOL OPHT DROP 10 ML BOTTLE EACHEYE SCH ×2 (08:59→17:54)
[2023-04-10] MEDS: ATORVASTATIN 20 MG TABLET PO SCH (17:54)
[2023-04-10] MEDS: OMEGA-3 FATTY ACIDS/FISH OIL CAPSULE PO SCH (17:55)
[2023-04-10] MEDS: ASPIRIN 81 MG TAB.CHEW PO SCH (17:55)
[2023-04-10] MEDS: MULTIVIT, IRON, MIN NO. 8, FA TABLET PO SCH (17:56)
[2023-04-10] MEDS: MAGNESIUM OXIDE 400 MG TABLET PO SCH (17:56)
[2023-04-10] MEDS: CHOLECALCIFEROL 1,000 UNIT TABLET PO SCH (17:56)
[2023-04-10] MEDS: LATANOPROST OPHT DROP 2.5 ML BOTTLE EACHEYE SCH (20:21)
[2023-04-11] VITALS (10 sets, daily range): TEMP 98.1; O2SAT 98–99
[2023-04-11] MEDS: IPRATROPIUM/ALBUTEROL SULFATE 3 ML AMPUL.NEB NEB SCH ×4 (01:31→18:59)
[2023-04-11] MEDS: LEVOTHYROXINE SODIUM 112 MCG TABLET PO SCH (06:17)
[2023-04-11] MEDS: BUDESONIDE 0.5 MG/2 ML NEBU NEB SCH ×2 (08:26→18:59)
[2023-04-11] MEDS: HYDROGEN PEROXIDE 3% 118 ML BOTTLE TP SCH ×2 (08:26→18:59)
[2023-04-11] MEDS: levETIRAcetam 500 MG/5 ML LIQUID UDC PO SCH ×2 (09:00→17:35)
[2023-04-11] MEDS: NYSTATIN CREAM 30 GM TUBE TP SCH ×2 (09:00→21:04)
[2023-04-11] MEDS: MIRALAX 17 GM POWD.PACK PO SCH ×2 (09:00→17:35)
[2023-04-11] MEDS: FOLIC ACID 1 MG TABLET PO SCH (09:00)
[2023-04-11] MEDS: FERROUS SULFATE 325 MG TABEC PO SCH (09:00)
[2023-04-11] MEDS: VITAMINS A AND D OINT 42 GM TUBE TP SCH ×2 (09:00→21:04)
[2023-04-11] MEDS: DORZOLAMIDE/TIMOLOL OPHT DROP 10 ML BOTTLE EACHEYE SCH ×2 (09:00→17:35)
[2023-04-11] MEDS: TOLTERODINE 1 MG TABLET PO SCH ×2 (09:00→17:35)
[2023-04-11] MEDS: REMEDY ESSENTIAL ZINC PASTE 113 GM TP SCH ×2 (09:00→21:04)
[2023-04-11] MEDS: OMEGA-3 FATTY ACIDS/FISH OIL CAPSULE PO SCH (17:35)
[2023-04-11] MEDS: MULTIVIT, IRON, MIN NO. 8, FA TABLET PO SCH (17:35)
[2023-04-11] MEDS: BENZONATATE 100 MG CAPSULE PO PRN (17:35)
[2023-04-11] MEDS: MAGNESIUM OXIDE 400 MG TABLET PO SCH (17:35)
[2023-04-11] MEDS: GUAIFENESIN SUGAR FREE 100 MG/5 ML UDC PO PRN (17:35)
[2023-04-11] MEDS: ASPIRIN 81 MG TAB.CHEW PO SCH (17:35)
[2023-04-11] MEDS: CHOLECALCIFEROL 1,000 UNIT TABLET PO SCH (17:35)
[2023-04-11] MEDS: ATORVASTATIN 20 MG TABLET PO SCH (17:35)
[2023-04-11] MEDS: LATANOPROST OPHT DROP 2.5 ML BOTTLE EACHEYE SCH (21:04)
[2023-04-12] VITALS (10 sets, daily range): TEMP 98; O2SAT 98–99
[2023-04-12] MEDS: IPRATROPIUM/ALBUTEROL SULFATE 3 ML AMPUL.NEB NEB SCH ×4 (01:42→19:14)
[2023-04-12] MEDS: BUDESONIDE 0.5 MG/2 ML NEBU NEB SCH ×2 (07:12→19:14)
[2023-04-12] MEDS: LEVOTHYROXINE SODIUM 112 MCG TABLET PO SCH (07:28)
[2023-04-12] MEDS: HYDROGEN PEROXIDE 3% 118 ML BOTTLE TP SCH ×2 (08:21→19:14)
[2023-04-12] MEDS: TOLTERODINE 1 MG TABLET PO SCH ×2 (09:35→17:00)
[2023-04-12] MEDS: DORZOLAMIDE/TIMOLOL OPHT DROP 10 ML BOTTLE EACHEYE SCH ×2 (09:35→17:00)
[2023-04-12] MEDS: FERROUS SULFATE 325 MG TABEC PO SCH (09:36)
[2023-04-12] MEDS: FOLIC ACID 1 MG TABLET PO SCH (09:36)
[2023-04-12] MEDS: REMEDY ESSENTIAL ZINC PASTE 113 GM TP SCH ×2 (09:37→21:00)
[2023-04-12] MEDS: levETIRAcetam 500 MG/5 ML LIQUID UDC PO SCH ×2 (09:37→17:00)
[2023-04-12] MEDS: NYSTATIN CREAM 30 GM TUBE TP SCH ×2 (09:37→21:00)
[2023-04-12] MEDS: MIRALAX 17 GM POWD.PACK PO SCH ×2 (09:37→17:00)
[2023-04-12] MEDS: VITAMINS A AND D OINT 42 GM TUBE TP SCH ×2 (09:38→21:00)
[2023-04-12] MEDS: OMEGA-3 FATTY ACIDS/FISH OIL CAPSULE PO SCH (18:04)
[2023-04-12] MEDS: MULTIVIT, IRON, MIN NO. 8, FA TABLET PO SCH (18:04)
[2023-04-12] MEDS: MAGNESIUM OXIDE 400 MG TABLET PO SCH (18:04)
[2023-04-12] MEDS: ASPIRIN 81 MG TAB.CHEW PO SCH (18:04)
[2023-04-12] MEDS: CHOLECALCIFEROL 1,000 UNIT TABLET PO SCH (18:04)
[2023-04-12] MEDS: ATORVASTATIN 20 MG TABLET PO SCH (18:04)
[2023-04-12] MEDS: LATANOPROST OPHT DROP 2.5 ML BOTTLE EACHEYE SCH (21:00)
[2023-04-13] VITALS (11 sets, daily range): TEMP 97.6–98; O2SAT 98–100
[2023-04-13] MEDS: IPRATROPIUM/ALBUTEROL SULFATE 3 ML AMPUL.NEB NEB SCH ×4 (01:11→19:36)
[2023-04-13] MEDS: LEVOTHYROXINE SODIUM 112 MCG TABLET PO SCH (06:43)
[2023-04-13] MEDS: BUDESONIDE 0.5 MG/2 ML NEBU NEB SCH ×2 (07:57→19:36)
[2023-04-13] MEDS: DORZOLAMIDE/TIMOLOL OPHT DROP 10 ML BOTTLE EACHEYE SCH ×2 (08:06→17:07)
[2023-04-13] MEDS: TOLTERODINE 1 MG TABLET PO SCH ×2 (08:07→17:07)
[2023-04-13] MEDS: FERROUS SULFATE 325 MG TABEC PO SCH (08:07)
[2023-04-13] MEDS: FOLIC ACID 1 MG TABLET PO SCH (08:07)
[2023-04-13] MEDS: levETIRAcetam 500 MG/5 ML LIQUID UDC PO SCH ×2 (08:07→17:07)
[2023-04-13] MEDS: MIRALAX 17 GM POWD.PACK PO SCH ×2 (08:08→17:08)
[2023-04-13] MEDS: VITAMINS A AND D OINT 42 GM TUBE TP SCH ×2 (08:09→20:35)
[2023-04-13] MEDS: NYSTATIN CREAM 30 GM TUBE TP SCH ×2 (08:09→20:35)
[2023-04-13] MEDS: REMEDY ESSENTIAL ZINC PASTE 113 GM TP SCH ×2 (08:09→20:35)
[2023-04-13] MEDS: HYDROGEN PEROXIDE 3% 118 ML BOTTLE TP SCH ×2 (11:21→19:36)
[2023-04-13] MEDS: ATORVASTATIN 20 MG TABLET PO SCH (17:08)
[2023-04-13] MEDS: ASPIRIN 81 MG TAB.CHEW PO SCH (17:08)
[2023-04-13] MEDS: MULTIVIT, IRON, MIN NO. 8, FA TABLET PO SCH (17:08)
[2023-04-13] MEDS: MAGNESIUM OXIDE 400 MG TABLET PO SCH (17:08)
[2023-04-13] MEDS: OMEGA-3 FATTY ACIDS/FISH OIL CAPSULE PO SCH (17:08)
[2023-04-13] MEDS: CHOLECALCIFEROL 1,000 UNIT TABLET PO SCH (17:09)
[2023-04-13] MEDS: GUAIFENESIN SUGAR FREE 100 MG/5 ML UDC PO PRN (17:09)
[2023-04-13] MEDS: BENZONATATE 100 MG CAPSULE PO PRN (17:09)
[2023-04-13] MEDS: LATANOPROST OPHT DROP 2.5 ML BOTTLE EACHEYE SCH (20:35)
[2023-04-14] VITALS (10 sets, daily range): TEMP 98.1–98.4; O2SAT 97–99
[2023-04-14] MEDS: IPRATROPIUM/ALBUTEROL SULFATE 3 ML AMPUL.NEB NEB SCH ×4 (01:46→19:20)
[2023-04-14] MEDS: LEVOTHYROXINE SODIUM 112 MCG TABLET PO SCH (05:30)
[2023-04-14] MEDS: BUDESONIDE 0.5 MG/2 ML NEBU NEB SCH ×2 (07:23→19:20)
[2023-04-14] MEDS: HYDROGEN PEROXIDE 3% 118 ML BOTTLE TP SCH ×2 (07:23→19:20)
[2023-04-14] MEDS: DORZOLAMIDE/TIMOLOL OPHT DROP 10 ML BOTTLE EACHEYE SCH ×2 (09:30→17:00)
[2023-04-14] MEDS: TOLTERODINE 1 MG TABLET PO SCH ×2 (09:30→17:00)
[2023-04-14] MEDS: FOLIC ACID 1 MG TABLET PO SCH (09:31)
[2023-04-14] MEDS: FERROUS SULFATE 325 MG TABEC PO SCH (09:31)
[2023-04-14] MEDS: MIRALAX 17 GM POWD.PACK PO SCH ×2 (09:32→17:00)
[2023-04-14] MEDS: levETIRAcetam 500 MG/5 ML LIQUID UDC PO SCH ×2 (09:32→17:00)
[2023-04-14] MEDS: VITAMINS A AND D OINT 42 GM TUBE TP SCH ×2 (09:33→20:58)
[2023-04-14] MEDS: BENZONATATE 100 MG CAPSULE PO PRN ×2 (09:33→18:29)
[2023-04-14] MEDS: NYSTATIN CREAM 30 GM TUBE TP SCH ×2 (09:33→20:58)
[2023-04-14] MEDS: REMEDY ESSENTIAL ZINC PASTE 113 GM TP SCH ×2 (09:33→20:58)
[2023-04-14] MEDS: GUAIFENESIN SUGAR FREE 100 MG/5 ML UDC PO PRN ×2 (09:34→18:29)
[2023-04-14] MEDS: ASPIRIN 81 MG TAB.CHEW PO SCH (18:26)
[2023-04-14] MEDS: OMEGA-3 FATTY ACIDS/FISH OIL CAPSULE PO SCH (18:27)
[2023-04-14] MEDS: ATORVASTATIN 20 MG TABLET PO SCH (18:27)
[2023-04-14] MEDS: MULTIVIT, IRON, MIN NO. 8, FA TABLET PO SCH (18:27)
[2023-04-14] MEDS: MAGNESIUM OXIDE 400 MG TABLET PO SCH (18:27)
[2023-04-14] MEDS: CHOLECALCIFEROL 1,000 UNIT TABLET PO SCH (18:28)
[2023-04-14] MEDS: LATANOPROST OPHT DROP 2.5 ML BOTTLE EACHEYE SCH (20:58)
[2023-04-15] VITALS (10 sets, daily range): TEMP 98.2–98.4; O2SAT 97–99
[2023-04-15] MEDS: BUDESONIDE 0.5 MG/2 ML NEBU NEB SCH ×2 (00:30→19:15)
[2023-04-15] MEDS: IPRATROPIUM/ALBUTEROL SULFATE 3 ML AMPUL.NEB NEB SCH ×4 (00:37→19:15)
[2023-04-15] MEDS: LEVOTHYROXINE SODIUM 112 MCG TABLET PO SCH (05:36)
[2023-04-15] MEDS: HYDROGEN PEROXIDE 3% 118 ML BOTTLE TP SCH ×2 (07:38→19:16)
[2023-04-15] MEDS: TOLTERODINE 1 MG TABLET PO SCH ×2 (09:25→17:38)
[2023-04-15] MEDS: FERROUS SULFATE 325 MG TABEC PO SCH (09:25)
[2023-04-15] MEDS: DORZOLAMIDE/TIMOLOL OPHT DROP 10 ML BOTTLE EACHEYE SCH ×2 (09:25→17:38)
[2023-04-15] MEDS: FOLIC ACID 1 MG TABLET PO SCH (09:26)
[2023-04-15] MEDS: MIRALAX 17 GM POWD.PACK PO SCH ×2 (09:26→17:38)
[2023-04-15] MEDS: levETIRAcetam 500 MG/5 ML LIQUID UDC PO SCH ×2 (09:26→17:38)
[2023-04-15] MEDS: NYSTATIN CREAM 30 GM TUBE TP SCH ×2 (09:27→21:16)
[2023-04-15] MEDS: REMEDY ESSENTIAL ZINC PASTE 113 GM TP SCH ×2 (09:27→21:16)
[2023-04-15] MEDS: VITAMINS A AND D OINT 42 GM TUBE TP SCH ×2 (09:27→21:17)
[2023-04-15] MEDS: BENZONATATE 100 MG CAPSULE PO PRN ×2 (10:03→17:59)
[2023-04-15] MEDS: GUAIFENESIN SUGAR FREE 100 MG/5 ML UDC PO PRN ×2 (10:03→17:59)
[2023-04-15] MEDS: ASPIRIN 81 MG TAB.CHEW PO SCH (17:39)
[2023-04-15] MEDS: OMEGA-3 FATTY ACIDS/FISH OIL CAPSULE PO SCH (17:40)
[2023-04-15] MEDS: MAGNESIUM OXIDE 400 MG TABLET PO SCH (17:40)
[2023-04-15] MEDS: ATORVASTATIN 20 MG TABLET PO SCH (17:40)
[2023-04-15] MEDS: CHOLECALCIFEROL 1,000 UNIT TABLET PO SCH (17:41)
[2023-04-15] MEDS: MULTIVIT, IRON, MIN NO. 8, FA TABLET PO SCH (17:41)
[2023-04-15] MEDS: LATANOPROST OPHT DROP 2.5 ML BOTTLE EACHEYE SCH (21:16)
[2023-04-16] VITALS (10 sets, daily range): TEMP 97.8–98.3; O2SAT 98–99
[2023-04-16] MEDS: IPRATROPIUM/ALBUTEROL SULFATE 3 ML AMPUL.NEB NEB SCH ×4 (01:14→19:14)
[2023-04-16] MEDS: LEVOTHYROXINE SODIUM 112 MCG TABLET PO SCH (05:46)
[2023-04-16] MEDS: BUDESONIDE 0.5 MG/2 ML NEBU NEB SCH ×2 (07:51→19:14)
[2023-04-16] MEDS: NYSTATIN CREAM 30 GM TUBE TP SCH ×2 (09:00→21:38)
[2023-04-16] MEDS: REMEDY ESSENTIAL ZINC PASTE 113 GM TP SCH ×2 (09:00→21:38)
[2023-04-16] MEDS: VITAMINS A AND D OINT 42 GM TUBE TP SCH ×2 (09:00→21:38)
[2023-04-16] MEDS: HYDROGEN PEROXIDE 3% 118 ML BOTTLE TP SCH ×2 (09:26→19:14)
[2023-04-16] MEDS: TOLTERODINE 1 MG TABLET PO SCH ×2 (09:58→17:05)
[2023-04-16] MEDS: FERROUS SULFATE 325 MG TABEC PO SCH (09:58)
[2023-04-16] MEDS: FOLIC ACID 1 MG TABLET PO SCH (09:58)
[2023-04-16] MEDS: MIRALAX 17 GM POWD.PACK PO SCH ×2 (09:58→17:09)
[2023-04-16] MEDS: DORZOLAMIDE/TIMOLOL OPHT DROP 10 ML BOTTLE EACHEYE SCH ×2 (09:58→17:05)
[2023-04-16] MEDS: levETIRAcetam 500 MG/5 ML LIQUID UDC PO SCH ×2 (09:58→17:07)
[2023-04-16] MEDS: ASPIRIN 81 MG TAB.CHEW PO SCH (17:10)
[2023-04-16] MEDS: OMEGA-3 FATTY ACIDS/FISH OIL CAPSULE PO SCH (17:10)
[2023-04-16] MEDS: ATORVASTATIN 20 MG TABLET PO SCH (17:10)
[2023-04-16] MEDS: CHOLECALCIFEROL 1,000 UNIT TABLET PO SCH (17:11)
[2023-04-16] MEDS: MAGNESIUM OXIDE 400 MG TABLET PO SCH (17:11)
[2023-04-16] MEDS: MULTIVIT, IRON, MIN NO. 8, FA TABLET PO SCH (17:11)
[2023-04-16] MEDS: LATANOPROST OPHT DROP 2.5 ML BOTTLE EACHEYE SCH (21:38)
[2023-04-17] VITALS (10 sets, daily range): TEMP 97.8–98.1; O2SAT 98–99
[2023-04-17] MEDS: IPRATROPIUM/ALBUTEROL SULFATE 3 ML AMPUL.NEB NEB SCH ×4 (01:23→19:13)
[2023-04-17] MEDS: LEVOTHYROXINE SODIUM 112 MCG TABLET PO SCH (05:52)
[2023-04-17] MEDS: BUDESONIDE 0.5 MG/2 ML NEBU NEB SCH ×2 (08:26→19:13)
[2023-04-17] MEDS: HYDROGEN PEROXIDE 3% 118 ML BOTTLE TP SCH ×2 (08:26→19:13)
[2023-04-17] MEDS: NYSTATIN CREAM 30 GM TUBE TP SCH ×2 (09:44→21:17)
[2023-04-17] MEDS: MIRALAX 17 GM POWD.PACK PO SCH ×2 (09:44→17:34)
[2023-04-17] MEDS: VITAMINS A AND D OINT 42 GM TUBE TP SCH ×2 (09:44→21:18)
[2023-04-17] MEDS: GUAIFENESIN SUGAR FREE 100 MG/5 ML UDC PO PRN ×2 (09:44→18:15)
[2023-04-17] MEDS: levETIRAcetam 500 MG/5 ML LIQUID UDC PO SCH ×2 (09:44→17:34)
[2023-04-17] MEDS: FERROUS SULFATE 325 MG TABEC PO SCH (09:44)
[2023-04-17] MEDS: REMEDY ESSENTIAL ZINC PASTE 113 GM TP SCH ×2 (09:44→21:17)
[2023-04-17] MEDS: FOLIC ACID 1 MG TABLET PO SCH (09:44)
[2023-04-17] MEDS: DORZOLAMIDE/TIMOLOL OPHT DROP 10 ML BOTTLE EACHEYE SCH ×2 (09:44→17:33)
[2023-04-17] MEDS: TOLTERODINE 1 MG TABLET PO SCH ×2 (09:44→17:33)
[2023-04-17] MEDS: BENZONATATE 100 MG CAPSULE PO PRN ×2 (09:45→18:15)
[2023-04-17] MEDS: ASPIRIN 81 MG TAB.CHEW PO SCH (17:34)
[2023-04-17] MEDS: ATORVASTATIN 20 MG TABLET PO SCH (17:35)
[2023-04-17] MEDS: MAGNESIUM OXIDE 400 MG TABLET PO SCH (17:35)
[2023-04-17] MEDS: MULTIVIT, IRON, MIN NO. 8, FA TABLET PO SCH (17:35)
[2023-04-17] MEDS: OMEGA-3 FATTY ACIDS/FISH OIL CAPSULE PO SCH (17:35)
[2023-04-17] MEDS: CHOLECALCIFEROL 1,000 UNIT TABLET PO SCH (17:36)
[2023-04-17] MEDS: LATANOPROST OPHT DROP 2.5 ML BOTTLE EACHEYE SCH (21:17)
[2023-04-18] VITALS (10 sets, daily range): TEMP 97.7–97.9; O2SAT 98–99
[2023-04-18] MEDS: IPRATROPIUM/ALBUTEROL SULFATE 3 ML AMPUL.NEB NEB SCH ×4 (01:41→19:30)
[2023-04-18] MEDS: LEVOTHYROXINE SODIUM 112 MCG TABLET PO SCH (06:12)
[2023-04-18] MEDS: BUDESONIDE 0.5 MG/2 ML NEBU NEB SCH ×2 (07:30→19:30)
[2023-04-18] MEDS: HYDROGEN PEROXIDE 3% 118 ML BOTTLE TP SCH ×2 (09:00→21:31)
[2023-04-18] MEDS: NYSTATIN CREAM 30 GM TUBE TP SCH ×2 (09:00→21:00)
[2023-04-18] MEDS: DORZOLAMIDE/TIMOLOL OPHT DROP 10 ML BOTTLE EACHEYE SCH ×2 (09:21→17:49)
[2023-04-18] MEDS: FERROUS SULFATE 325 MG TABEC PO SCH (09:22)
[2023-04-18] MEDS: FOLIC ACID 1 MG TABLET PO SCH (09:22)
[2023-04-18] MEDS: TOLTERODINE 1 MG TABLET PO SCH ×2 (09:22→17:49)
[2023-04-18] MEDS: levETIRAcetam 500 MG/5 ML LIQUID UDC PO SCH ×2 (09:23→17:50)
[2023-04-18] MEDS: MIRALAX 17 GM POWD.PACK PO SCH ×2 (09:23→17:51)
[2023-04-18] MEDS: REMEDY ESSENTIAL ZINC PASTE 113 GM TP SCH ×2 (09:24→21:00)
[2023-04-18] MEDS: GUAIFENESIN SUGAR FREE 100 MG/5 ML UDC PO PRN (09:24)
[2023-04-18] MEDS: VITAMINS A AND D OINT 42 GM TUBE TP SCH ×2 (09:24→20:15)
[2023-04-18] MEDS: BENZONATATE 100 MG CAPSULE PO PRN (09:24)
[2023-04-18] MEDS: ASPIRIN 81 MG TAB.CHEW PO SCH (17:51)
[2023-04-18] MEDS: OMEGA-3 FATTY ACIDS/FISH OIL CAPSULE PO SCH (17:51)
[2023-04-18] MEDS: ATORVASTATIN 20 MG TABLET PO SCH (17:51)
[2023-04-18] MEDS: MAGNESIUM OXIDE 400 MG TABLET PO SCH (17:52)
[2023-04-18] MEDS: MULTIVIT, IRON, MIN NO. 8, FA TABLET PO SCH (17:52)
[2023-04-18] MEDS: CHOLECALCIFEROL 1,000 UNIT TABLET PO SCH (17:53)
[2023-04-18] MEDS: LATANOPROST OPHT DROP 2.5 ML BOTTLE EACHEYE SCH (20:15)
[2023-04-19] VITALS (10 sets, daily range): TEMP 97.7–97.8; O2SAT 98–99
[2023-04-19] MEDS: IPRATROPIUM/ALBUTEROL SULFATE 3 ML AMPUL.NEB NEB SCH ×4 (00:40→19:30)
[2023-04-19] MEDS: LEVOTHYROXINE SODIUM 112 MCG TABLET PO SCH (06:44)
[2023-04-19] MEDS: BUDESONIDE 0.5 MG/2 ML NEBU NEB SCH ×2 (07:39→19:30)
[2023-04-19] MEDS: HYDROGEN PEROXIDE 3% 118 ML BOTTLE TP SCH ×2 (08:46→21:30)
[2023-04-19] MEDS: DORZOLAMIDE/TIMOLOL OPHT DROP 10 ML BOTTLE EACHEYE SCH ×2 (08:50→17:53)
[2023-04-19] MEDS: FERROUS SULFATE 325 MG TABEC PO SCH (08:51)
[2023-04-19] MEDS: TOLTERODINE 1 MG TABLET PO SCH ×2 (08:51→17:53)
[2023-04-19] MEDS: levETIRAcetam 500 MG/5 ML LIQUID UDC PO SCH ×2 (08:52→17:53)
[2023-04-19] MEDS: REMEDY ESSENTIAL ZINC PASTE 113 GM TP SCH ×2 (08:52→21:00)
[2023-04-19] MEDS: MIRALAX 17 GM POWD.PACK PO SCH ×2 (08:52→17:54)
[2023-04-19] MEDS: FOLIC ACID 1 MG TABLET PO SCH (08:52)
[2023-04-19] MEDS: VITAMINS A AND D OINT 42 GM TUBE TP SCH ×2 (08:52→21:00)
[2023-04-19] MEDS: BENZONATATE 100 MG CAPSULE PO PRN ×2 (08:53→17:55)
[2023-04-19] MEDS: GUAIFENESIN SUGAR FREE 100 MG/5 ML UDC PO PRN ×2 (08:53→17:55)
[2023-04-19] MEDS: NYSTATIN CREAM 30 GM TUBE TP SCH ×2 (09:07→21:00)
[2023-04-19] MEDS: ASPIRIN 81 MG TAB.CHEW PO SCH (17:54)
[2023-04-19] MEDS: ATORVASTATIN 20 MG TABLET PO SCH (17:54)
[2023-04-19] MEDS: OMEGA-3 FATTY ACIDS/FISH OIL CAPSULE PO SCH (17:54)
[2023-04-19] MEDS: MULTIVIT, IRON, MIN NO. 8, FA TABLET PO SCH (17:55)
[2023-04-19] MEDS: MAGNESIUM OXIDE 400 MG TABLET PO SCH (17:55)
[2023-04-19] MEDS: CHOLECALCIFEROL 1,000 UNIT TABLET PO SCH (17:55)
[2023-04-19] MEDS: LATANOPROST OPHT DROP 2.5 ML BOTTLE EACHEYE SCH (21:00)
[2023-04-20] VITALS (9 sets, daily range): TEMP 98.2; O2SAT 98–99
[2023-04-20] MEDS: IPRATROPIUM/ALBUTEROL SULFATE 3 ML AMPUL.NEB NEB SCH ×4 (02:25→19:40)
[2023-04-20] MEDS: LEVOTHYROXINE SODIUM 112 MCG TABLET PO SCH (06:13)
[2023-04-20] MEDS: BUDESONIDE 0.5 MG/2 ML NEBU NEB SCH ×2 (08:12→19:40)
[2023-04-20] MEDS: DORZOLAMIDE/TIMOLOL OPHT DROP 10 ML BOTTLE EACHEYE SCH ×2 (08:46→16:42)
[2023-04-20] MEDS: TOLTERODINE 1 MG TABLET PO SCH ×2 (08:46→16:42)
[2023-04-20] MEDS: FERROUS SULFATE 325 MG TABEC PO SCH (08:47)
[2023-04-20] MEDS: FOLIC ACID 1 MG TABLET PO SCH (08:47)
[2023-04-20] MEDS: levETIRAcetam 500 MG/5 ML LIQUID UDC PO SCH ×2 (08:47→16:42)
[2023-04-20] MEDS: MIRALAX 17 GM POWD.PACK PO SCH ×2 (08:48→16:43)
[2023-04-20] MEDS: REMEDY ESSENTIAL ZINC PASTE 113 GM TP SCH ×2 (08:48→20:51)
[2023-04-20] MEDS: VITAMINS A AND D OINT 42 GM TUBE TP SCH ×2 (08:48→20:51)
[2023-04-20] MEDS: NYSTATIN CREAM 30 GM TUBE TP SCH (08:48)
[2023-04-20] MEDS: HYDROGEN PEROXIDE 3% 118 ML BOTTLE TP SCH ×2 (11:21→19:40)
[2023-04-20] MEDS: OMEGA-3 FATTY ACIDS/FISH OIL CAPSULE PO SCH (17:04)
[2023-04-20] MEDS: ATORVASTATIN 20 MG TABLET PO SCH (17:04)
[2023-04-20] MEDS: ASPIRIN 81 MG TAB.CHEW PO SCH (17:04)
[2023-04-20] MEDS: CHOLECALCIFEROL 1,000 UNIT TABLET PO SCH (17:05)
[2023-04-20] MEDS: MAGNESIUM OXIDE 400 MG TABLET PO SCH (17:05)
[2023-04-20] MEDS: MULTIVIT, IRON, MIN NO. 8, FA TABLET PO SCH (17:05)
[2023-04-20] MEDS: LATANOPROST OPHT DROP 2.5 ML BOTTLE EACHEYE SCH (20:51)
[2023-04-21] VITALS (10 sets, daily range): TEMP 97.7–98.3; O2SAT 97–99
[2023-04-21] MEDS: IPRATROPIUM/ALBUTEROL SULFATE 3 ML AMPUL.NEB NEB SCH ×4 (00:35→19:10)
[2023-04-21] MEDS: LEVOTHYROXINE SODIUM 112 MCG TABLET PO SCH (05:50)
[2023-04-21 07:17] LABS: BASOPHILS % (AUTO) 0.4 % (0.0-2.0); EOSINOPHILS # (AUTO) 0.1 K/uL (0.0-0.7); EOSINOPHILS % (AUTO) 2.8 % (0.0-7.0); HEMATOCRIT 32.1 % (31.2-41.9); HEMOGLOBIN 10.7 g/dL (10.9-14.3); LYMPHOCYTES # (AUTO) 1.3 K/uL (0.8-4.8); MEAN CORPUSCULAR HEMOGLOBIN 29.5 uug (24.7-32.8); MEAN CORPUSCULAR HGB CONC 33 g/dL (32.3-35.6); MEAN CORPUSCULAR VOLUME 88.3 fL (75.5-95.3); MONOCYTES # (AUTO) 0.7 K/uL (0.1-1.30); MONOCYTES % (AUTO) 13.1 % (0.0-11.0); NEUTROPHILS % (AUTO) 58.7 % (38.5-71.5); PLATELET COUNT (AUTO) 200 K/uL (179-408); RED BLOOD CELL COUNT(AUTO) 3.64 MIL/uL (3.63-4.92); RED CELL DISTRIBUTION WIDTH 15.5 % (12.3-17.7); WHITE BLOOD COUNT (AUTO) 5.1 K/uL (3.8-11.8)
[2023-04-21 07:27] LABS: DIFFERENTIAL COMMENT 1
[2023-04-21 07:39] LABS: CALCIUM 8.3 mg/dL (8.5-10.1); CREATININE 0.6 mg/dL (0.6-1.3); MAGNESIUM 1.8 mg/dL (1.8-2.4); PHOSPHOROUS 4.3 mg/dL (2.5-4.9); POTASSIUM 4.1 mmol/L (3.5-5.1)
[2023-04-21] MEDS: HYDROGEN PEROXIDE 3% 118 ML BOTTLE TP SCH ×2 (08:26→19:10)
[2023-04-21] MEDS: BUDESONIDE 0.5 MG/2 ML NEBU NEB SCH ×2 (08:26→19:10)
[2023-04-21] MEDS: DORZOLAMIDE/TIMOLOL OPHT DROP 10 ML BOTTLE EACHEYE SCH ×2 (09:25→17:46)
[2023-04-21] MEDS: FERROUS SULFATE 325 MG TABEC PO SCH (09:26)
[2023-04-21] MEDS: TOLTERODINE 1 MG TABLET PO SCH ×2 (09:26→17:46)
[2023-04-21] MEDS: FOLIC ACID 1 MG TABLET PO SCH (09:26)
[2023-04-21] MEDS: levETIRAcetam 500 MG/5 ML LIQUID UDC PO SCH ×2 (09:27→17:47)
[2023-04-21] MEDS: BENZONATATE 100 MG CAPSULE PO PRN ×2 (09:28→17:51)
[2023-04-21] MEDS: VITAMINS A AND D OINT 42 GM TUBE TP SCH ×2 (09:28→21:20)
[2023-04-21] MEDS: MIRALAX 17 GM POWD.PACK PO SCH ×2 (09:28→17:50)
[2023-04-21] MEDS: REMEDY ESSENTIAL ZINC PASTE 113 GM TP SCH ×2 (09:28→21:20)
[2023-04-21] MEDS: ATORVASTATIN 20 MG TABLET PO SCH (17:50)
[2023-04-21] MEDS: OMEGA-3 FATTY ACIDS/FISH OIL CAPSULE PO SCH (17:50)
[2023-04-21] MEDS: ASPIRIN 81 MG TAB.CHEW PO SCH (17:50)
[2023-04-21] MEDS: GUAIFENESIN SUGAR FREE 100 MG/5 ML UDC PO PRN (17:51)
[2023-04-21] MEDS: MAGNESIUM OXIDE 400 MG TABLET PO SCH (17:51)
[2023-04-21] MEDS: MULTIVIT, IRON, MIN NO. 8, FA TABLET PO SCH (17:51)
[2023-04-21] MEDS: CHOLECALCIFEROL 1,000 UNIT TABLET PO SCH (17:51)
[2023-04-21] MEDS: LATANOPROST OPHT DROP 2.5 ML BOTTLE EACHEYE SCH (21:20)
[2023-04-22] VITALS (10 sets, daily range): TEMP 97.8–98.4; O2SAT 98–99
[2023-04-22] MEDS: IPRATROPIUM/ALBUTEROL SULFATE 3 ML AMPUL.NEB NEB SCH ×4 (01:16→19:07)
[2023-04-22] MEDS: LEVOTHYROXINE SODIUM 112 MCG TABLET PO SCH (05:47)
[2023-04-22] MEDS: BUDESONIDE 0.5 MG/2 ML NEBU NEB SCH ×2 (08:00→19:07)
[2023-04-22] MEDS: DORZOLAMIDE/TIMOLOL OPHT DROP 10 ML BOTTLE EACHEYE SCH ×2 (09:05→17:47)
[2023-04-22] MEDS: FERROUS SULFATE 325 MG TABEC PO SCH (09:06)
[2023-04-22] MEDS: TOLTERODINE 1 MG TABLET PO SCH ×2 (09:06→17:47)
[2023-04-22] MEDS: MIRALAX 17 GM POWD.PACK PO SCH ×2 (09:07→17:47)
[2023-04-22] MEDS: levETIRAcetam 500 MG/5 ML LIQUID UDC PO SCH ×2 (09:07→17:47)
[2023-04-22] MEDS: FOLIC ACID 1 MG TABLET PO SCH (09:07)
[2023-04-22] MEDS: BENZONATATE 100 MG CAPSULE PO PRN ×2 (09:08→17:48)
[2023-04-22] MEDS: REMEDY ESSENTIAL ZINC PASTE 113 GM TP SCH ×2 (09:08→21:12)
[2023-04-22] MEDS: VITAMINS A AND D OINT 42 GM TUBE TP SCH ×2 (09:08→21:13)
[2023-04-22] MEDS: HYDROGEN PEROXIDE 3% 118 ML BOTTLE TP SCH ×2 (09:50→21:00)
[2023-04-22] MEDS: MAGNESIUM OXIDE 400 MG TABLET PO SCH (17:47)
[2023-04-22] MEDS: ATORVASTATIN 20 MG TABLET PO SCH (17:47)
[2023-04-22] MEDS: ASPIRIN 81 MG TAB.CHEW PO SCH (17:47)
[2023-04-22] MEDS: OMEGA-3 FATTY ACIDS/FISH OIL CAPSULE PO SCH (17:47)
[2023-04-22] MEDS: CHOLECALCIFEROL 1,000 UNIT TABLET PO SCH (17:48)
[2023-04-22] MEDS: MULTIVIT, IRON, MIN NO. 8, FA TABLET PO SCH (17:48)
[2023-04-22] MEDS: GUAIFENESIN SUGAR FREE 100 MG/5 ML UDC PO PRN (17:49)
[2023-04-22] MEDS: LATANOPROST OPHT DROP 2.5 ML BOTTLE EACHEYE SCH (21:12)
[2023-04-23] VITALS (10 sets, daily range): TEMP 97.5–97.8; O2SAT 97–99
[2023-04-23] MEDS: IPRATROPIUM/ALBUTEROL SULFATE 3 ML AMPUL.NEB NEB SCH ×4 (01:25→19:21)
[2023-04-23] MEDS: LEVOTHYROXINE SODIUM 112 MCG TABLET PO SCH (06:13)
[2023-04-23] MEDS: BUDESONIDE 0.5 MG/2 ML NEBU NEB SCH ×2 (07:12→19:21)
[2023-04-23] MEDS: HYDROGEN PEROXIDE 3% 118 ML BOTTLE TP SCH ×2 (07:12→19:21)
[2023-04-23] MEDS: DORZOLAMIDE/TIMOLOL OPHT DROP 10 ML BOTTLE EACHEYE SCH ×2 (09:10→17:56)
[2023-04-23] MEDS: FERROUS SULFATE 325 MG TABEC PO SCH (09:11)
[2023-04-23] MEDS: TOLTERODINE 1 MG TABLET PO SCH ×2 (09:11→17:56)
[2023-04-23] MEDS: FOLIC ACID 1 MG TABLET PO SCH (09:11)
[2023-04-23] MEDS: levETIRAcetam 500 MG/5 ML LIQUID UDC PO SCH ×2 (09:12→17:56)
[2023-04-23] MEDS: MIRALAX 17 GM POWD.PACK PO SCH ×2 (09:13→17:56)
[2023-04-23] MEDS: REMEDY ESSENTIAL ZINC PASTE 113 GM TP SCH ×2 (09:14→21:22)
[2023-04-23] MEDS: VITAMINS A AND D OINT 42 GM TUBE TP SCH ×2 (09:17→21:22)
[2023-04-23] MEDS: BENZONATATE 100 MG CAPSULE PO PRN ×2 (09:34→17:57)
[2023-04-23] MEDS: GUAIFENESIN SUGAR FREE 100 MG/5 ML UDC PO PRN ×2 (09:34→17:57)
[2023-04-23] MEDS: MULTIVIT, IRON, MIN NO. 8, FA TABLET PO SCH (17:56)
[2023-04-23] MEDS: MAGNESIUM OXIDE 400 MG TABLET PO SCH (17:56)
[2023-04-23] MEDS: CHOLECALCIFEROL 1,000 UNIT TABLET PO SCH (17:56)
[2023-04-23] MEDS: OMEGA-3 FATTY ACIDS/FISH OIL CAPSULE PO SCH (17:56)
[2023-04-23] MEDS: ASPIRIN 81 MG TAB.CHEW PO SCH (17:56)
[2023-04-23] MEDS: ATORVASTATIN 20 MG TABLET PO SCH (17:56)
[2023-04-23] MEDS: LATANOPROST OPHT DROP 2.5 ML BOTTLE EACHEYE SCH (21:22)
[2023-04-24] VITALS (10 sets, daily range): TEMP 98.2–98.4; O2SAT 97–99
[2023-04-24] MEDS: IPRATROPIUM/ALBUTEROL SULFATE 3 ML AMPUL.NEB NEB SCH ×4 (00:58→19:04)
[2023-04-24] MEDS: LEVOTHYROXINE SODIUM 112 MCG TABLET PO SCH (05:37)
[2023-04-24] MEDS: BUDESONIDE 0.5 MG/2 ML NEBU NEB SCH ×2 (07:50→19:04)
[2023-04-24] MEDS: HYDROGEN PEROXIDE 3% 118 ML BOTTLE TP SCH ×2 (07:51→19:04)
[2023-04-24] MEDS: DORZOLAMIDE/TIMOLOL OPHT DROP 10 ML BOTTLE EACHEYE SCH ×2 (09:28→17:59)
[2023-04-24] MEDS: levETIRAcetam 500 MG/5 ML LIQUID UDC PO SCH ×2 (09:29→17:59)
[2023-04-24] MEDS: TOLTERODINE 1 MG TABLET PO SCH ×2 (09:29→17:59)
[2023-04-24] MEDS: VITAMINS A AND D OINT 42 GM TUBE TP SCH ×2 (09:29→20:39)
[2023-04-24] MEDS: MIRALAX 17 GM POWD.PACK PO SCH ×2 (09:29→17:59)
[2023-04-24] MEDS: FOLIC ACID 1 MG TABLET PO SCH (09:29)
[2023-04-24] MEDS: REMEDY ESSENTIAL ZINC PASTE 113 GM TP SCH ×2 (09:29→20:39)
[2023-04-24] MEDS: FERROUS SULFATE 325 MG TABEC PO SCH (09:29)
[2023-04-24] MEDS: ASPIRIN 81 MG TAB.CHEW PO SCH (17:59)
[2023-04-24] MEDS: ATORVASTATIN 20 MG TABLET PO SCH (17:59)
[2023-04-24] MEDS: MULTIVIT, IRON, MIN NO. 8, FA TABLET PO SCH (17:59)
[2023-04-24] MEDS: MAGNESIUM OXIDE 400 MG TABLET PO SCH (17:59)
[2023-04-24] MEDS: CHOLECALCIFEROL 1,000 UNIT TABLET PO SCH (17:59)
[2023-04-24] MEDS: OMEGA-3 FATTY ACIDS/FISH OIL CAPSULE PO SCH (17:59)
[2023-04-24] MEDS: LATANOPROST OPHT DROP 2.5 ML BOTTLE EACHEYE SCH (20:39)
[2023-04-25] VITALS (9 sets, daily range): TEMP 97.2–98.7; O2SAT 97–99
[2023-04-25] MEDS: IPRATROPIUM/ALBUTEROL SULFATE 3 ML AMPUL.NEB NEB SCH ×4 (01:30→19:06)
[2023-04-25] MEDS: LEVOTHYROXINE SODIUM 112 MCG TABLET PO SCH (06:30)
[2023-04-25] MEDS: HYDROGEN PEROXIDE 3% 118 ML BOTTLE TP SCH ×2 (08:07→19:07)
[2023-04-25] MEDS: BUDESONIDE 0.5 MG/2 ML NEBU NEB SCH ×2 (08:07→19:06)
[2023-04-25] MEDS: VITAMINS A AND D OINT 42 GM TUBE TP SCH ×2 (09:00→20:25)
[2023-04-25] MEDS: FOLIC ACID 1 MG TABLET PO SCH (09:29)
[2023-04-25] MEDS: TOLTERODINE 1 MG TABLET PO SCH ×2 (09:29→17:00)
[2023-04-25] MEDS: DORZOLAMIDE/TIMOLOL OPHT DROP 10 ML BOTTLE EACHEYE SCH ×2 (09:29→17:00)
[2023-04-25] MEDS: FERROUS SULFATE 325 MG TABEC PO SCH (09:32)
[2023-04-25] MEDS: levETIRAcetam 500 MG/5 ML LIQUID UDC PO SCH ×2 (09:32→17:00)
[2023-04-25] MEDS: MIRALAX 17 GM POWD.PACK PO SCH ×2 (09:34→17:00)
[2023-04-25] MEDS: REMEDY ESSENTIAL ZINC PASTE 113 GM TP SCH ×2 (09:37→20:25)
[2023-04-25] MEDS: OMEGA-3 FATTY ACIDS/FISH OIL CAPSULE PO SCH (18:06)
[2023-04-25] MEDS: ASPIRIN 81 MG TAB.CHEW PO SCH (18:06)
[2023-04-25] MEDS: MAGNESIUM OXIDE 400 MG TABLET PO SCH (18:07)
[2023-04-25] MEDS: CHOLECALCIFEROL 1,000 UNIT TABLET PO SCH (18:07)
[2023-04-25] MEDS: MULTIVIT, IRON, MIN NO. 8, FA TABLET PO SCH (18:07)
[2023-04-25] MEDS: ATORVASTATIN 20 MG TABLET PO SCH (18:07)
[2023-04-25] MEDS: BENZONATATE 100 MG CAPSULE PO PRN (18:39)
[2023-04-25] MEDS: GUAIFENESIN SUGAR FREE 100 MG/5 ML UDC PO PRN (18:39)
[2023-04-25] MEDS: LATANOPROST OPHT DROP 2.5 ML BOTTLE EACHEYE SCH (20:25)
[2023-04-26] VITALS (10 sets, daily range): TEMP 98.5–98.6; O2SAT 98–99
[2023-04-26] MEDS: IPRATROPIUM/ALBUTEROL SULFATE 3 ML AMPUL.NEB NEB SCH ×4 (01:09→19:17)
[2023-04-26] MEDS: LEVOTHYROXINE SODIUM 112 MCG TABLET PO SCH (06:34)
[2023-04-26] MEDS: BUDESONIDE 0.5 MG/2 ML NEBU NEB SCH ×2 (08:17→19:17)
[2023-04-26] MEDS: REMEDY ESSENTIAL ZINC PASTE 113 GM TP SCH ×2 (09:00→21:28)
[2023-04-26] MEDS: VITAMINS A AND D OINT 42 GM TUBE TP SCH ×2 (09:00→21:28)
[2023-04-26] MEDS: DORZOLAMIDE/TIMOLOL OPHT DROP 10 ML BOTTLE EACHEYE SCH ×2 (09:17→17:55)
[2023-04-26] MEDS: TOLTERODINE 1 MG TABLET PO SCH ×2 (09:17→17:55)
[2023-04-26] MEDS: FERROUS SULFATE 325 MG TABEC PO SCH (09:18)
[2023-04-26] MEDS: MIRALAX 17 GM POWD.PACK PO SCH ×2 (09:19→17:56)
[2023-04-26] MEDS: levETIRAcetam 500 MG/5 ML LIQUID UDC PO SCH ×2 (09:19→17:55)
[2023-04-26] MEDS: FOLIC ACID 1 MG TABLET PO SCH (09:19)
[2023-04-26] MEDS: GUAIFENESIN SUGAR FREE 100 MG/5 ML UDC PO PRN ×2 (09:20→17:58)
[2023-04-26] MEDS: BENZONATATE 100 MG CAPSULE PO PRN ×2 (09:20→17:58)
[2023-04-26] MEDS: HYDROGEN PEROXIDE 3% 118 ML BOTTLE TP SCH ×2 (09:40→21:00)
[2023-04-26] MEDS: OMEGA-3 FATTY ACIDS/FISH OIL CAPSULE PO SCH (17:56)
[2023-04-26] MEDS: ASPIRIN 81 MG TAB.CHEW PO SCH (17:56)
[2023-04-26] MEDS: ATORVASTATIN 20 MG TABLET PO SCH (17:57)
[2023-04-26] MEDS: MAGNESIUM OXIDE 400 MG TABLET PO SCH (17:57)
[2023-04-26] MEDS: MULTIVIT, IRON, MIN NO. 8, FA TABLET PO SCH (17:58)
[2023-04-26] MEDS: CHOLECALCIFEROL 1,000 UNIT TABLET PO SCH (17:58)
[2023-04-26] MEDS: HYDROGEN PEROXIDE 3% 118 ML BOTTLE TP PRN (19:17)
[2023-04-26] MEDS: LATANOPROST OPHT DROP 2.5 ML BOTTLE EACHEYE SCH (21:27)
[2023-04-27] VITALS (12 sets, daily range): TEMP 98–98.8; O2SAT 98–99
[2023-04-27] MEDS: IPRATROPIUM/ALBUTEROL SULFATE 3 ML AMPUL.NEB NEB SCH ×4 (01:02→19:18)
[2023-04-27] MEDS: LEVOTHYROXINE SODIUM 112 MCG TABLET PO SCH (06:03)
[2023-04-27] MEDS: BUDESONIDE 0.5 MG/2 ML NEBU NEB SCH ×2 (07:03→19:19)
[2023-04-27] MEDS: HYDROGEN PEROXIDE 3% 118 ML BOTTLE TP SCH ×2 (08:08→19:19)
[2023-04-27] MEDS: FERROUS SULFATE 325 MG TABEC PO SCH (09:37)
[2023-04-27] MEDS: TOLTERODINE 1 MG TABLET PO SCH ×2 (09:37→17:00)
[2023-04-27] MEDS: DORZOLAMIDE/TIMOLOL OPHT DROP 10 ML BOTTLE EACHEYE SCH ×2 (09:37→17:00)
[2023-04-27] MEDS: levETIRAcetam 500 MG/5 ML LIQUID UDC PO SCH ×2 (09:38→17:00)
[2023-04-27] MEDS: FOLIC ACID 1 MG TABLET PO SCH (09:38)
[2023-04-27] MEDS: VITAMINS A AND D OINT 42 GM TUBE TP SCH ×2 (09:39→21:10)
[2023-04-27] MEDS: MIRALAX 17 GM POWD.PACK PO SCH ×2 (09:39→17:00)
[2023-04-27] MEDS: REMEDY ESSENTIAL ZINC PASTE 113 GM TP SCH ×2 (09:39→20:38)
[2023-04-27] MEDS: OMEGA-3 FATTY ACIDS/FISH OIL CAPSULE PO SCH (18:08)
[2023-04-27] MEDS: ASPIRIN 81 MG TAB.CHEW PO SCH (18:08)
[2023-04-27] MEDS: MAGNESIUM OXIDE 400 MG TABLET PO SCH (18:11)
[2023-04-27] MEDS: ATORVASTATIN 20 MG TABLET PO SCH (18:11)
[2023-04-27] MEDS: CHOLECALCIFEROL 1,000 UNIT TABLET PO SCH (18:13)
[2023-04-27] MEDS: MULTIVIT, IRON, MIN NO. 8, FA TABLET PO SCH (18:13)
[2023-04-27] MEDS: GUAIFENESIN SUGAR FREE 100 MG/5 ML UDC PO PRN (18:15)
[2023-04-27] MEDS: BENZONATATE 100 MG CAPSULE PO PRN (18:15)
[2023-04-27] MEDS: LATANOPROST OPHT DROP 2.5 ML BOTTLE EACHEYE SCH (20:37)
[2023-04-28] VITALS (10 sets, daily range): TEMP 98.2–98.9; O2SAT 98–99
[2023-04-28] MEDS: IPRATROPIUM/ALBUTEROL SULFATE 3 ML AMPUL.NEB NEB SCH ×4 (01:07→19:28)
[2023-04-28] MEDS: LEVOTHYROXINE SODIUM 112 MCG TABLET PO SCH (06:21)
[2023-04-28] MEDS: BUDESONIDE 0.5 MG/2 ML NEBU NEB SCH ×2 (07:33→19:28)
[2023-04-28] MEDS: HYDROGEN PEROXIDE 3% 118 ML BOTTLE TP SCH ×2 (08:08→19:28)
[2023-04-28] MEDS: TOLTERODINE 1 MG TABLET PO SCH ×2 (09:18→16:22)
[2023-04-28] MEDS: FOLIC ACID 1 MG TABLET PO SCH (09:19)
[2023-04-28] MEDS: FERROUS SULFATE 325 MG TABEC PO SCH (09:19)
[2023-04-28] MEDS: MIRALAX 17 GM POWD.PACK PO SCH ×2 (09:20→16:23)
[2023-04-28] MEDS: levETIRAcetam 500 MG/5 ML LIQUID UDC PO SCH ×2 (09:20→16:22)
[2023-04-28] MEDS: REMEDY ESSENTIAL ZINC PASTE 113 GM TP SCH ×2 (09:21→20:56)
[2023-04-28] MEDS: GUAIFENESIN SUGAR FREE 100 MG/5 ML UDC PO PRN (09:23)
[2023-04-28] MEDS: BENZONATATE 100 MG CAPSULE PO PRN (09:24)
[2023-04-28] MEDS: VITAMINS A AND D OINT 42 GM TUBE TP SCH ×2 (09:27→20:56)
[2023-04-28] MEDS: DORZOLAMIDE/TIMOLOL OPHT DROP 10 ML BOTTLE EACHEYE SCH ×2 (09:29→17:10)
[2023-04-28] MEDS: ASPIRIN 81 MG TAB.CHEW PO SCH (17:11)
[2023-04-28] MEDS: ATORVASTATIN 20 MG TABLET PO SCH (17:12)
[2023-04-28] MEDS: OMEGA-3 FATTY ACIDS/FISH OIL CAPSULE PO SCH (17:12)
[2023-04-28] MEDS: MULTIVIT, IRON, MIN NO. 8, FA TABLET PO SCH (17:13)
[2023-04-28] MEDS: MAGNESIUM OXIDE 400 MG TABLET PO SCH (17:13)
[2023-04-28] MEDS: CHOLECALCIFEROL 1,000 UNIT TABLET PO SCH (17:14)
[2023-04-28] MEDS: LATANOPROST OPHT DROP 2.5 ML BOTTLE EACHEYE SCH (20:56)
[2023-04-29] VITALS (10 sets, daily range): TEMP 97.7–97.9; O2SAT 97–99
[2023-04-29] MEDS: IPRATROPIUM/ALBUTEROL SULFATE 3 ML AMPUL.NEB NEB SCH ×4 (00:46→19:27)
[2023-04-29] MEDS: LEVOTHYROXINE SODIUM 112 MCG TABLET PO SCH (06:41)
[2023-04-29] MEDS: HYDROGEN PEROXIDE 3% 118 ML BOTTLE TP SCH ×2 (07:48→19:20)
[2023-04-29] MEDS: BUDESONIDE 0.5 MG/2 ML NEBU NEB SCH ×2 (07:48→19:27)
[2023-04-29] MEDS: REMEDY ESSENTIAL ZINC PASTE 113 GM TP SCH ×2 (09:00→20:37)
[2023-04-29] MEDS: VITAMINS A AND D OINT 42 GM TUBE TP SCH ×2 (09:00→20:37)
[2023-04-29] MEDS: MIRALAX 17 GM POWD.PACK PO SCH ×2 (09:00→17:44)
[2023-04-29] MEDS: FERROUS SULFATE 325 MG TABEC PO SCH (09:00)
[2023-04-29] MEDS: levETIRAcetam 500 MG/5 ML LIQUID UDC PO SCH ×2 (09:00→17:44)
[2023-04-29] MEDS: DORZOLAMIDE/TIMOLOL OPHT DROP 10 ML BOTTLE EACHEYE SCH ×2 (09:57→17:41)
[2023-04-29] MEDS: FOLIC ACID 1 MG TABLET PO SCH (09:58)
[2023-04-29] MEDS: TOLTERODINE 1 MG TABLET PO SCH ×2 (09:59→17:43)
[2023-04-29] MEDS: BENZONATATE 100 MG CAPSULE PO PRN ×2 (10:13→18:05)
[2023-04-29] MEDS: GUAIFENESIN SUGAR FREE 100 MG/5 ML UDC PO PRN ×2 (10:14→18:08)
[2023-04-29] MEDS: ASPIRIN 81 MG TAB.CHEW PO SCH (17:45)
[2023-04-29] MEDS: OMEGA-3 FATTY ACIDS/FISH OIL CAPSULE PO SCH (17:47)
[2023-04-29] MEDS: MAGNESIUM OXIDE 400 MG TABLET PO SCH (17:49)
[2023-04-29] MEDS: ATORVASTATIN 20 MG TABLET PO SCH (17:49)
[2023-04-29] MEDS: CHOLECALCIFEROL 1,000 UNIT TABLET PO SCH (17:55)
[2023-04-29] MEDS: MULTIVIT, IRON, MIN NO. 8, FA TABLET PO SCH (18:01)
[2023-04-29] MEDS: LATANOPROST OPHT DROP 2.5 ML BOTTLE EACHEYE SCH (20:37)
[2023-04-30] VITALS (10 sets, daily range): TEMP 97–97.6; O2SAT 98–99
[2023-04-30] MEDS: IPRATROPIUM/ALBUTEROL SULFATE 3 ML AMPUL.NEB NEB SCH ×4 (01:01→19:20)
[2023-04-30] MEDS: LEVOTHYROXINE SODIUM 112 MCG TABLET PO SCH (06:10)
[2023-04-30] MEDS: HYDROGEN PEROXIDE 3% 118 ML BOTTLE TP SCH ×2 (07:22→19:20)
[2023-04-30] MEDS: BUDESONIDE 0.5 MG/2 ML NEBU NEB SCH ×2 (07:22→19:20)
[2023-04-30] MEDS: DORZOLAMIDE/TIMOLOL OPHT DROP 10 ML BOTTLE EACHEYE SCH ×2 (09:44→17:59)
[2023-04-30] MEDS: FERROUS SULFATE 325 MG TABEC PO SCH (09:45)
[2023-04-30] MEDS: FOLIC ACID 1 MG TABLET PO SCH (09:46)
[2023-04-30] MEDS: levETIRAcetam 500 MG/5 ML LIQUID UDC PO SCH ×2 (09:46→17:59)
[2023-04-30] MEDS: MIRALAX 17 GM POWD.PACK PO SCH ×2 (09:47→17:59)
[2023-04-30] MEDS: REMEDY ESSENTIAL ZINC PASTE 113 GM TP SCH ×2 (09:47→20:57)
[2023-04-30] MEDS: VITAMINS A AND D OINT 42 GM TUBE TP SCH ×2 (09:47→20:57)
[2023-04-30] MEDS: GUAIFENESIN SUGAR FREE 100 MG/5 ML UDC PO PRN ×2 (09:49→18:09)
[2023-04-30] MEDS: BENZONATATE 100 MG CAPSULE PO PRN ×2 (09:49→18:08)
[2023-04-30] MEDS: TOLTERODINE 1 MG TABLET PO SCH ×2 (09:52→17:59)
[2023-04-30] MEDS: ASPIRIN 81 MG TAB.CHEW PO SCH (18:02)
[2023-04-30] MEDS: MAGNESIUM OXIDE 400 MG TABLET PO SCH (18:05)
[2023-04-30] MEDS: ATORVASTATIN 20 MG TABLET PO SCH (18:05)
[2023-04-30] MEDS: OMEGA-3 FATTY ACIDS/FISH OIL CAPSULE PO SCH (18:05)
[2023-04-30] MEDS: MULTIVIT, IRON, MIN NO. 8, FA TABLET PO SCH (18:06)
[2023-04-30] MEDS: CHOLECALCIFEROL 1,000 UNIT TABLET PO SCH (18:07)
[2023-04-30] MEDS: LATANOPROST OPHT DROP 2.5 ML BOTTLE EACHEYE SCH (20:57)
[2023-05-01] VITALS (10 sets, daily range): TEMP 98; O2SAT 98–99
[2023-05-01] MEDS: IPRATROPIUM/ALBUTEROL SULFATE 3 ML AMPUL.NEB NEB SCH ×4 (00:30→19:27)
[2023-05-01] MEDS: LEVOTHYROXINE SODIUM 112 MCG TABLET PO SCH (05:51)
[2023-05-01] MEDS: BUDESONIDE 0.5 MG/2 ML NEBU NEB SCH ×2 (07:48→19:27)
[2023-05-01] MEDS: DORZOLAMIDE/TIMOLOL OPHT DROP 10 ML BOTTLE EACHEYE SCH ×2 (09:26→17:02)
[2023-05-01] MEDS: TOLTERODINE 1 MG TABLET PO SCH ×2 (09:27→17:03)
[2023-05-01] MEDS: FERROUS SULFATE 325 MG TABEC PO SCH (09:29)
[2023-05-01] MEDS: FOLIC ACID 1 MG TABLET PO SCH (09:29)
[2023-05-01] MEDS: levETIRAcetam 500 MG/5 ML LIQUID UDC PO SCH ×2 (09:31→17:03)
[2023-05-01] MEDS: MIRALAX 17 GM POWD.PACK PO SCH ×2 (09:32→17:03)
[2023-05-01] MEDS: REMEDY ESSENTIAL ZINC PASTE 113 GM TP SCH ×2 (09:33→20:38)
[2023-05-01] MEDS: BENZONATATE 100 MG CAPSULE PO PRN ×2 (09:34→17:08)
[2023-05-01] MEDS: GUAIFENESIN SUGAR FREE 100 MG/5 ML UDC PO PRN ×2 (09:34→17:08)
[2023-05-01] MEDS: VITAMINS A AND D OINT 42 GM TUBE TP SCH ×2 (09:37→20:38)
[2023-05-01] MEDS: HYDROGEN PEROXIDE 3% 118 ML BOTTLE TP SCH ×2 (09:42→19:27)
[2023-05-01] MEDS: OMEGA-3 FATTY ACIDS/FISH OIL CAPSULE PO SCH (17:04)
[2023-05-01] MEDS: ASPIRIN 81 MG TAB.CHEW PO SCH (17:04)
[2023-05-01] MEDS: MAGNESIUM OXIDE 400 MG TABLET PO SCH (17:05)
[2023-05-01] MEDS: ATORVASTATIN 20 MG TABLET PO SCH (17:05)
[2023-05-01] MEDS: MULTIVIT, IRON, MIN NO. 8, FA TABLET PO SCH (17:05)
[2023-05-01] MEDS: CHOLECALCIFEROL 1,000 UNIT TABLET PO SCH (17:06)
[2023-05-01] MEDS: LATANOPROST OPHT DROP 2.5 ML BOTTLE EACHEYE SCH (20:38)
[2023-05-02] VITALS (10 sets, daily range): TEMP 98.3–98.4; O2SAT 99
[2023-05-02] MEDS: IPRATROPIUM/ALBUTEROL SULFATE 3 ML AMPUL.NEB NEB SCH ×4 (00:37→19:07)
[2023-05-02] MEDS: BENZONATATE 100 MG CAPSULE PO PRN ×2 (02:00→09:25)
[2023-05-02] MEDS: LEVOTHYROXINE SODIUM 112 MCG TABLET PO SCH (06:17)
[2023-05-02] MEDS: BUDESONIDE 0.5 MG/2 ML NEBU NEB SCH ×2 (07:34→19:07)
[2023-05-02] MEDS: TOLTERODINE 1 MG TABLET PO SCH ×2 (08:47→17:43)
[2023-05-02] MEDS: FOLIC ACID 1 MG TABLET PO SCH (08:47)
[2023-05-02] MEDS: levETIRAcetam 500 MG/5 ML LIQUID UDC PO SCH ×2 (08:51→17:39)
[2023-05-02] MEDS: FERROUS SULFATE 325 MG TABEC PO SCH (08:51)
[2023-05-02] MEDS: REMEDY ESSENTIAL ZINC PASTE 113 GM TP SCH ×2 (08:52→20:45)
[2023-05-02] MEDS: VITAMINS A AND D OINT 42 GM TUBE TP SCH ×2 (08:52→20:45)
[2023-05-02] MEDS: MIRALAX 17 GM POWD.PACK PO SCH ×2 (08:52→17:30)
[2023-05-02] MEDS: HYDROGEN PEROXIDE 3% 118 ML BOTTLE TP SCH ×2 (08:52→19:07)
[2023-05-02] MEDS: DORZOLAMIDE/TIMOLOL OPHT DROP 10 ML BOTTLE EACHEYE SCH ×2 (08:53→17:30)
[2023-05-02] MEDS: GUAIFENESIN SUGAR FREE 100 MG/5 ML UDC PO PRN (09:25)
[2023-05-02] MEDS: ASPIRIN 81 MG TAB.CHEW PO SCH (17:33)
[2023-05-02] MEDS: OMEGA-3 FATTY ACIDS/FISH OIL CAPSULE PO SCH (17:39)
[2023-05-02] MEDS: MULTIVIT, IRON, MIN NO. 8, FA TABLET PO SCH (17:42)
[2023-05-02] MEDS: MAGNESIUM OXIDE 400 MG TABLET PO SCH (17:42)
[2023-05-02] MEDS: ATORVASTATIN 20 MG TABLET PO SCH (17:42)
[2023-05-02] MEDS: CHOLECALCIFEROL 1,000 UNIT TABLET PO SCH (17:43)
[2023-05-02] MEDS: LATANOPROST OPHT DROP 2.5 ML BOTTLE EACHEYE SCH (20:45)
[2023-05-03] VITALS (10 sets, daily range): TEMP 98; O2SAT 98–99
[2023-05-03] MEDS: IPRATROPIUM/ALBUTEROL SULFATE 3 ML AMPUL.NEB NEB SCH ×4 (01:02→19:05)
[2023-05-03] MEDS: LEVOTHYROXINE SODIUM 112 MCG TABLET PO SCH (05:36)
[2023-05-03] MEDS: HYDROGEN PEROXIDE 3% 118 ML BOTTLE TP SCH ×2 (07:33→19:05)
[2023-05-03] MEDS: BUDESONIDE 0.5 MG/2 ML NEBU NEB SCH ×2 (07:33→19:05)
[2023-05-03] MEDS: DORZOLAMIDE/TIMOLOL OPHT DROP 10 ML BOTTLE EACHEYE SCH ×2 (08:21→17:00)
[2023-05-03] MEDS: TOLTERODINE 1 MG TABLET PO SCH ×2 (08:22→17:00)
[2023-05-03] MEDS: FOLIC ACID 1 MG TABLET PO SCH (08:23)
[2023-05-03] MEDS: FERROUS SULFATE 325 MG TABEC PO SCH (08:26)
[2023-05-03] MEDS: levETIRAcetam 500 MG/5 ML LIQUID UDC PO SCH ×2 (08:27→17:00)
[2023-05-03] MEDS: VITAMINS A AND D OINT 42 GM TUBE TP SCH ×2 (08:29→20:29)
[2023-05-03] MEDS: REMEDY ESSENTIAL ZINC PASTE 113 GM TP SCH ×2 (08:29→20:29)
[2023-05-03] MEDS: MIRALAX 17 GM POWD.PACK PO SCH ×2 (08:29→17:00)
[2023-05-03] MEDS: BENZONATATE 100 MG CAPSULE PO PRN ×2 (08:33→18:08)
[2023-05-03] MEDS: GUAIFENESIN SUGAR FREE 100 MG/5 ML UDC PO PRN ×2 (08:35→18:08)
[2023-05-03] MEDS: ASPIRIN 81 MG TAB.CHEW PO SCH (18:01)
[2023-05-03] MEDS: OMEGA-3 FATTY ACIDS/FISH OIL CAPSULE PO SCH (18:02)
[2023-05-03] MEDS: ATORVASTATIN 20 MG TABLET PO SCH (18:02)
[2023-05-03] MEDS: MAGNESIUM OXIDE 400 MG TABLET PO SCH (18:04)
[2023-05-03] MEDS: MULTIVIT, IRON, MIN NO. 8, FA TABLET PO SCH (18:05)
[2023-05-03] MEDS: CHOLECALCIFEROL 1,000 UNIT TABLET PO SCH (18:05)
[2023-05-03] MEDS: LATANOPROST OPHT DROP 2.5 ML BOTTLE EACHEYE SCH (20:28)
[2023-05-04] VITALS (10 sets, daily range): TEMP 98.2–99; O2SAT 98–99
[2023-05-04] MEDS: IPRATROPIUM/ALBUTEROL SULFATE 3 ML AMPUL.NEB NEB SCH ×4 (00:40→19:36)
[2023-05-04] MEDS: LEVOTHYROXINE SODIUM 112 MCG TABLET PO SCH (05:58)
[2023-05-04] MEDS: BUDESONIDE 0.5 MG/2 ML NEBU NEB SCH ×2 (07:51→19:36)
[2023-05-04] MEDS: HYDROGEN PEROXIDE 3% 118 ML BOTTLE TP SCH ×2 (07:51→19:36)
[2023-05-04] MEDS: DORZOLAMIDE/TIMOLOL OPHT DROP 10 ML BOTTLE EACHEYE SCH ×2 (08:41→16:33)
[2023-05-04] MEDS: FOLIC ACID 1 MG TABLET PO SCH (08:51)
[2023-05-04] MEDS: TOLTERODINE 1 MG TABLET PO SCH ×2 (08:51→16:33)
[2023-05-04] MEDS: FERROUS SULFATE 325 MG TABEC PO SCH (08:51)
[2023-05-04] MEDS: levETIRAcetam 500 MG/5 ML LIQUID UDC PO SCH ×2 (08:53→16:34)
[2023-05-04] MEDS: MIRALAX 17 GM POWD.PACK PO SCH ×2 (08:54→16:34)
[2023-05-04] MEDS: REMEDY ESSENTIAL ZINC PASTE 113 GM TP SCH ×2 (08:54→21:56)
[2023-05-04] MEDS: VITAMINS A AND D OINT 42 GM TUBE TP SCH ×2 (08:55→21:56)
[2023-05-04] MEDS: BENZONATATE 100 MG CAPSULE PO PRN ×2 (08:56→16:35)
[2023-05-04] MEDS: GUAIFENESIN SUGAR FREE 100 MG/5 ML UDC PO PRN ×2 (08:57→16:37)
[2023-05-04] MEDS: ASPIRIN 81 MG TAB.CHEW PO SCH (17:09)
[2023-05-04] MEDS: ATORVASTATIN 20 MG TABLET PO SCH (17:10)
[2023-05-04] MEDS: OMEGA-3 FATTY ACIDS/FISH OIL CAPSULE PO SCH (17:10)
[2023-05-04] MEDS: MAGNESIUM OXIDE 400 MG TABLET PO SCH (17:10)
[2023-05-04] MEDS: MULTIVIT, IRON, MIN NO. 8, FA TABLET PO SCH (17:11)
[2023-05-04] MEDS: CHOLECALCIFEROL 1,000 UNIT TABLET PO SCH (17:11)
[2023-05-04] MEDS: LATANOPROST OPHT DROP 2.5 ML BOTTLE EACHEYE SCH (21:56)
[2023-05-05] VITALS (10 sets, daily range): TEMP 98–98.5; O2SAT 98–99
[2023-05-05] MEDS: IPRATROPIUM/ALBUTEROL SULFATE 3 ML AMPUL.NEB NEB SCH ×4 (00:39→19:12)
[2023-05-05] MEDS: LEVOTHYROXINE SODIUM 112 MCG TABLET PO SCH (06:26)
[2023-05-05 06:55] LABS: BASOPHILS % (AUTO) 0.5 % (0.0-2.0); EOSINOPHILS # (AUTO) 0.2 K/uL (0.0-0.7); EOSINOPHILS % (AUTO) 3.1 % (0.0-7.0); HEMATOCRIT 31.1 % (31.2-41.9); HEMOGLOBIN 10.4 g/dL (10.9-14.3); LYMPHOCYTES # (AUTO) 1.5 K/uL (0.8-4.8); LYMPHOCYTES % (AUTO) 28.1 % (20.5-51.5); MEAN CORPUSCULAR HEMOGLOBIN 29.4 uug (24.7-32.8); MEAN CORPUSCULAR HGB CONC 34 g/dL (32.3-35.6); MEAN CORPUSCULAR VOLUME 87.8 fL (75.5-95.3); MONOCYTES # (AUTO) 0.6 K/uL (0.1-1.30); MONOCYTES % (AUTO) 12.1 % (0.0-11.0); NEUTROPHILS % (AUTO) 56.2 % (38.5-71.5); PLATELET COUNT (AUTO) 206 K/uL (179-408); RED BLOOD CELL COUNT(AUTO) 3.54 MIL/uL (3.63-4.92); RED CELL DISTRIBUTION WIDTH 15.1 % (12.3-17.7); WHITE BLOOD COUNT (AUTO) 5.3 K/uL (3.8-11.8)
[2023-05-05 07:07] LABS: DIFFERENTIAL COMMENT 1
[2023-05-05 07:19] LABS: CALCIUM 8.4 mg/dL (8.5-10.1); CREATININE 0.6 mg/dL (0.6-1.3); MAGNESIUM 1.9 mg/dL (1.8-2.4); PHOSPHOROUS 4.2 mg/dL (2.5-4.9)
[2023-05-05] MEDS: BUDESONIDE 0.5 MG/2 ML NEBU NEB SCH ×2 (07:22→19:12)
[2023-05-05] MEDS: HYDROGEN PEROXIDE 3% 118 ML BOTTLE TP SCH ×2 (08:10→19:12)
[2023-05-05] MEDS: TOLTERODINE 1 MG TABLET PO SCH ×2 (09:43→17:41)
[2023-05-05] MEDS: DORZOLAMIDE/TIMOLOL OPHT DROP 10 ML BOTTLE EACHEYE SCH ×2 (09:43→17:40)
[2023-05-05] MEDS: VITAMINS A AND D OINT 42 GM TUBE TP SCH ×2 (09:44→21:56)
[2023-05-05] MEDS: REMEDY ESSENTIAL ZINC PASTE 113 GM TP SCH ×2 (09:44→21:56)
[2023-05-05] MEDS: FOLIC ACID 1 MG TABLET PO SCH (09:44)
[2023-05-05] MEDS: levETIRAcetam 500 MG/5 ML LIQUID UDC PO SCH ×2 (09:45→17:42)
[2023-05-05] MEDS: FERROUS SULFATE 325 MG TABEC PO SCH (09:49)
[2023-05-05] MEDS: MIRALAX 17 GM POWD.PACK PO SCH ×2 (09:49→17:46)
[2023-05-05] MEDS: GUAIFENESIN SUGAR FREE 100 MG/5 ML UDC PO PRN ×2 (09:51→17:47)
[2023-05-05] MEDS: BENZONATATE 100 MG CAPSULE PO PRN ×2 (09:52→17:48)
[2023-05-05] MEDS: ATORVASTATIN 20 MG TABLET PO SCH (17:41)
[2023-05-05] MEDS: ASPIRIN 81 MG TAB.CHEW PO SCH (17:43)
[2023-05-05] MEDS: OMEGA-3 FATTY ACIDS/FISH OIL CAPSULE PO SCH (17:43)
[2023-05-05] MEDS: MULTIVIT, IRON, MIN NO. 8, FA TABLET PO SCH (17:44)
[2023-05-05] MEDS: MAGNESIUM OXIDE 400 MG TABLET PO SCH (17:45)
[2023-05-05] MEDS: CHOLECALCIFEROL 1,000 UNIT TABLET PO SCH (17:46)
[2023-05-05] MEDS: LATANOPROST OPHT DROP 2.5 ML BOTTLE EACHEYE SCH (21:56)
[2023-05-06] VITALS (10 sets, daily range): TEMP 97.8–98.9; O2SAT 98–99
[2023-05-06] MEDS: IPRATROPIUM/ALBUTEROL SULFATE 3 ML AMPUL.NEB NEB SCH ×4 (01:31→19:22)
[2023-05-06] MEDS: LEVOTHYROXINE SODIUM 112 MCG TABLET PO SCH (05:35)
[2023-05-06] MEDS: BUDESONIDE 0.5 MG/2 ML NEBU NEB SCH ×2 (08:08→19:22)
[2023-05-06] MEDS: HYDROGEN PEROXIDE 3% 118 ML BOTTLE TP SCH ×2 (08:08→19:22)
[2023-05-06] MEDS: DORZOLAMIDE/TIMOLOL OPHT DROP 10 ML BOTTLE EACHEYE SCH ×2 (08:52→17:02)
[2023-05-06] MEDS: FOLIC ACID 1 MG TABLET PO SCH (08:53)
[2023-05-06] MEDS: MIRALAX 17 GM POWD.PACK PO SCH ×2 (08:53→17:02)
[2023-05-06] MEDS: TOLTERODINE 1 MG TABLET PO SCH ×2 (08:53→17:02)
[2023-05-06] MEDS: FERROUS SULFATE 325 MG TABEC PO SCH (08:53)
[2023-05-06] MEDS: levETIRAcetam 500 MG/5 ML LIQUID UDC PO SCH ×2 (08:53→17:02)
[2023-05-06] MEDS: REMEDY ESSENTIAL ZINC PASTE 113 GM TP SCH ×2 (08:54→20:58)
[2023-05-06] MEDS: VITAMINS A AND D OINT 42 GM TUBE TP SCH ×2 (08:54→21:00)
[2023-05-06] MEDS: BENZONATATE 100 MG CAPSULE PO PRN ×2 (09:00→17:02)
[2023-05-06] MEDS: GUAIFENESIN SUGAR FREE 100 MG/5 ML UDC PO PRN ×2 (09:00→17:02)
[2023-05-06] MEDS: ASPIRIN 81 MG TAB.CHEW PO SCH (17:02)
[2023-05-06] MEDS: MULTIVIT, IRON, MIN NO. 8, FA TABLET PO SCH (17:02)
[2023-05-06] MEDS: MAGNESIUM OXIDE 400 MG TABLET PO SCH (17:02)
[2023-05-06] MEDS: CHOLECALCIFEROL 1,000 UNIT TABLET PO SCH (17:02)
[2023-05-06] MEDS: OMEGA-3 FATTY ACIDS/FISH OIL CAPSULE PO SCH (17:02)
[2023-05-06] MEDS: ATORVASTATIN 20 MG TABLET PO SCH (17:02)
[2023-05-06] MEDS: LATANOPROST OPHT DROP 2.5 ML BOTTLE EACHEYE SCH (20:58)
[2023-05-07] VITALS (10 sets, daily range): TEMP 97.6–98; O2SAT 98–99
[2023-05-07] MEDS: IPRATROPIUM/ALBUTEROL SULFATE 3 ML AMPUL.NEB NEB SCH ×4 (01:13→19:10)
[2023-05-07] MEDS: LEVOTHYROXINE SODIUM 112 MCG TABLET PO SCH (05:50)
[2023-05-07] MEDS: BUDESONIDE 0.5 MG/2 ML NEBU NEB SCH ×2 (07:36→19:10)
[2023-05-07] MEDS: HYDROGEN PEROXIDE 3% 118 ML BOTTLE TP SCH ×2 (08:13→19:10)
[2023-05-07] MEDS: DORZOLAMIDE/TIMOLOL OPHT DROP 10 ML BOTTLE EACHEYE SCH ×2 (09:24→16:48)
[2023-05-07] MEDS: MIRALAX 17 GM POWD.PACK PO SCH ×2 (09:25→16:50)
[2023-05-07] MEDS: FOLIC ACID 1 MG TABLET PO SCH (09:25)
[2023-05-07] MEDS: levETIRAcetam 500 MG/5 ML LIQUID UDC PO SCH ×2 (09:25→16:50)
[2023-05-07] MEDS: FERROUS SULFATE 325 MG TABEC PO SCH (09:25)
[2023-05-07] MEDS: REMEDY ESSENTIAL ZINC PASTE 113 GM TP SCH ×2 (09:25→21:33)
[2023-05-07] MEDS: VITAMINS A AND D OINT 42 GM TUBE TP SCH ×2 (09:25→21:33)
[2023-05-07] MEDS: TOLTERODINE 1 MG TABLET PO SCH ×2 (09:25→16:50)
[2023-05-07] MEDS: BENZONATATE 100 MG CAPSULE PO PRN ×2 (09:26→17:01)
[2023-05-07] MEDS: GUAIFENESIN SUGAR FREE 100 MG/5 ML UDC PO PRN ×2 (09:26→17:01)
[2023-05-07] MEDS: OMEGA-3 FATTY ACIDS/FISH OIL CAPSULE PO SCH (17:00)
[2023-05-07] MEDS: ATORVASTATIN 20 MG TABLET PO SCH (17:00)
[2023-05-07] MEDS: ASPIRIN 81 MG TAB.CHEW PO SCH (17:00)
[2023-05-07] MEDS: MAGNESIUM OXIDE 400 MG TABLET PO SCH (17:00)
[2023-05-07] MEDS: CHOLECALCIFEROL 1,000 UNIT TABLET PO SCH (17:01)
[2023-05-07] MEDS: MULTIVIT, IRON, MIN NO. 8, FA TABLET PO SCH (17:01)
[2023-05-07] MEDS: LATANOPROST OPHT DROP 2.5 ML BOTTLE EACHEYE SCH (21:32)
[2023-05-08] VITALS (10 sets, daily range): TEMP 97.9–98; O2SAT 98–99
[2023-05-08] MEDS: IPRATROPIUM/ALBUTEROL SULFATE 3 ML AMPUL.NEB NEB SCH ×4 (00:47→19:19)
[2023-05-08] MEDS: LEVOTHYROXINE SODIUM 112 MCG TABLET PO SCH (05:52)
[2023-05-08] MEDS: HYDROGEN PEROXIDE 3% 118 ML BOTTLE TP SCH ×2 (07:59→21:21)
[2023-05-08] MEDS: BUDESONIDE 0.5 MG/2 ML NEBU NEB SCH ×2 (07:59→19:19)
[2023-05-08] MEDS: DORZOLAMIDE/TIMOLOL OPHT DROP 10 ML BOTTLE EACHEYE SCH ×2 (08:58→17:25)
[2023-05-08] MEDS: FERROUS SULFATE 325 MG TABEC PO SCH (08:58)
[2023-05-08] MEDS: TOLTERODINE 1 MG TABLET PO SCH ×2 (08:58→17:25)
[2023-05-08] MEDS: FOLIC ACID 1 MG TABLET PO SCH (08:59)
[2023-05-08] MEDS: levETIRAcetam 500 MG/5 ML LIQUID UDC PO SCH ×2 (08:59→17:25)
[2023-05-08] MEDS: VITAMINS A AND D OINT 42 GM TUBE TP SCH ×2 (09:00→21:17)
[2023-05-08] MEDS: REMEDY ESSENTIAL ZINC PASTE 113 GM TP SCH ×2 (09:00→21:17)
[2023-05-08] MEDS: MIRALAX 17 GM POWD.PACK PO SCH ×2 (09:00→17:26)
[2023-05-08] MEDS: ASPIRIN 81 MG TAB.CHEW PO SCH (17:27)
[2023-05-08] MEDS: OMEGA-3 FATTY ACIDS/FISH OIL CAPSULE PO SCH (17:27)
[2023-05-08] MEDS: ATORVASTATIN 20 MG TABLET PO SCH (17:28)
[2023-05-08] MEDS: MULTIVIT, IRON, MIN NO. 8, FA TABLET PO SCH (17:29)
[2023-05-08] MEDS: MAGNESIUM OXIDE 400 MG TABLET PO SCH (17:29)
[2023-05-08] MEDS: BENZONATATE 100 MG CAPSULE PO PRN (17:30)
[2023-05-08] MEDS: CHOLECALCIFEROL 1,000 UNIT TABLET PO SCH (17:30)
[2023-05-08] MEDS: GUAIFENESIN SUGAR FREE 100 MG/5 ML UDC PO PRN (17:30)
[2023-05-08] MEDS: LATANOPROST OPHT DROP 2.5 ML BOTTLE EACHEYE SCH (21:17)
[2023-05-09] VITALS (10 sets, daily range): TEMP 97.8–98.8; O2SAT 97–99
[2023-05-09] MEDS: IPRATROPIUM/ALBUTEROL SULFATE 3 ML AMPUL.NEB NEB SCH ×4 (01:05→20:26)
[2023-05-09] MEDS: LEVOTHYROXINE SODIUM 112 MCG TABLET PO SCH (05:40)
[2023-05-09] MEDS: BUDESONIDE 0.5 MG/2 ML NEBU NEB SCH ×2 (07:42→20:26)
[2023-05-09] MEDS: HYDROGEN PEROXIDE 3% 118 ML BOTTLE TP SCH ×2 (07:42→20:26)
[2023-05-09] MEDS: FERROUS SULFATE 325 MG TABEC PO SCH (09:03)
[2023-05-09] MEDS: TOLTERODINE 1 MG TABLET PO SCH ×2 (09:03→16:18)
[2023-05-09] MEDS: FOLIC ACID 1 MG TABLET PO SCH (09:03)
[2023-05-09] MEDS: levETIRAcetam 500 MG/5 ML LIQUID UDC PO SCH ×2 (09:04→16:18)
[2023-05-09] MEDS: VITAMINS A AND D OINT 42 GM TUBE TP SCH ×2 (09:05→21:00)
[2023-05-09] MEDS: REMEDY ESSENTIAL ZINC PASTE 113 GM TP SCH ×2 (09:05→21:00)
[2023-05-09] MEDS: MIRALAX 17 GM POWD.PACK PO SCH ×2 (09:05→16:18)
[2023-05-09] MEDS: DORZOLAMIDE/TIMOLOL OPHT DROP 10 ML BOTTLE EACHEYE SCH ×2 (09:06→16:18)
[2023-05-09] MEDS: GUAIFENESIN SUGAR FREE 100 MG/5 ML UDC PO PRN ×2 (09:54→16:21)
[2023-05-09] MEDS: BENZONATATE 100 MG CAPSULE PO PRN (16:23)
[2023-05-09] MEDS: CHOLECALCIFEROL 1,000 UNIT TABLET PO SCH (17:11)
[2023-05-09] MEDS: ASPIRIN 81 MG TAB.CHEW PO SCH (17:11)
[2023-05-09] MEDS: ATORVASTATIN 20 MG TABLET PO SCH (17:11)
[2023-05-09] MEDS: MAGNESIUM OXIDE 400 MG TABLET PO SCH (17:11)
[2023-05-09] MEDS: MULTIVIT, IRON, MIN NO. 8, FA TABLET PO SCH (17:11)
[2023-05-09] MEDS: OMEGA-3 FATTY ACIDS/FISH OIL CAPSULE PO SCH (17:11)
[2023-05-09] MEDS: LATANOPROST OPHT DROP 2.5 ML BOTTLE EACHEYE SCH (20:59)
[2023-05-10] VITALS (10 sets, daily range): TEMP 98–98.7; O2SAT 97–99
[2023-05-10] MEDS: IPRATROPIUM/ALBUTEROL SULFATE 3 ML AMPUL.NEB NEB SCH ×4 (01:00→19:16)
[2023-05-10] MEDS: LEVOTHYROXINE SODIUM 112 MCG TABLET PO SCH (04:28)
[2023-05-10] MEDS: BUDESONIDE 0.5 MG/2 ML NEBU NEB SCH ×2 (07:28→19:16)
[2023-05-10] MEDS: HYDROGEN PEROXIDE 3% 118 ML BOTTLE TP SCH ×2 (07:28→19:16)
[2023-05-10] MEDS: REMEDY ESSENTIAL ZINC PASTE 113 GM TP SCH ×2 (09:29→21:16)
[2023-05-10] MEDS: levETIRAcetam 500 MG/5 ML LIQUID UDC PO SCH ×2 (09:29→17:38)
[2023-05-10] MEDS: FOLIC ACID 1 MG TABLET PO SCH (09:29)
[2023-05-10] MEDS: FERROUS SULFATE 325 MG TABEC PO SCH (09:29)
[2023-05-10] MEDS: DORZOLAMIDE/TIMOLOL OPHT DROP 10 ML BOTTLE EACHEYE SCH ×2 (09:29→17:38)
[2023-05-10] MEDS: VITAMINS A AND D OINT 42 GM TUBE TP SCH ×2 (09:29→21:16)
[2023-05-10] MEDS: TOLTERODINE 1 MG TABLET PO SCH ×2 (09:29→17:38)
[2023-05-10] MEDS: MIRALAX 17 GM POWD.PACK PO SCH ×2 (09:29→17:38)
[2023-05-10] MEDS: BENZONATATE 100 MG CAPSULE PO PRN (09:30)
[2023-05-10] MEDS: GUAIFENESIN SUGAR FREE 100 MG/5 ML UDC PO PRN (09:30)
[2023-05-10] MEDS: ASPIRIN 81 MG TAB.CHEW PO SCH (17:38)
[2023-05-10] MEDS: ATORVASTATIN 20 MG TABLET PO SCH (17:39)
[2023-05-10] MEDS: MULTIVIT, IRON, MIN NO. 8, FA TABLET PO SCH (17:39)
[2023-05-10] MEDS: OMEGA-3 FATTY ACIDS/FISH OIL CAPSULE PO SCH (17:39)
[2023-05-10] MEDS: MAGNESIUM OXIDE 400 MG TABLET PO SCH (17:39)
[2023-05-10] MEDS: CHOLECALCIFEROL 1,000 UNIT TABLET PO SCH (17:39)
[2023-05-10] MEDS: LATANOPROST OPHT DROP 2.5 ML BOTTLE EACHEYE SCH (21:04)
[2023-05-11] VITALS (10 sets, daily range): TEMP 98.4–98.8; O2SAT 97–99
[2023-05-11] MEDS: IPRATROPIUM/ALBUTEROL SULFATE 3 ML AMPUL.NEB NEB SCH ×4 (01:30→19:21)
[2023-05-11] MEDS: LEVOTHYROXINE SODIUM 112 MCG TABLET PO SCH (04:43)
[2023-05-11] MEDS: BUDESONIDE 0.5 MG/2 ML NEBU NEB SCH ×2 (07:28→19:21)
[2023-05-11] MEDS: HYDROGEN PEROXIDE 3% 118 ML BOTTLE TP SCH ×2 (08:04→21:00)
[2023-05-11] MEDS: BENZONATATE 100 MG CAPSULE PO PRN ×2 (09:10→17:54)
[2023-05-11] MEDS: GUAIFENESIN SUGAR FREE 100 MG/5 ML UDC PO PRN ×2 (09:10→17:54)
[2023-05-11] MEDS: MIRALAX 17 GM POWD.PACK PO SCH ×2 (09:16→17:54)
[2023-05-11] MEDS: FERROUS SULFATE 325 MG TABEC PO SCH (09:16)
[2023-05-11] MEDS: VITAMINS A AND D OINT 42 GM TUBE TP SCH ×2 (09:16→21:06)
[2023-05-11] MEDS: FOLIC ACID 1 MG TABLET PO SCH (09:16)
[2023-05-11] MEDS: REMEDY ESSENTIAL ZINC PASTE 113 GM TP SCH ×2 (09:16→21:06)
[2023-05-11] MEDS: DORZOLAMIDE/TIMOLOL OPHT DROP 10 ML BOTTLE EACHEYE SCH ×2 (09:16→17:53)
[2023-05-11] MEDS: TOLTERODINE 1 MG TABLET PO SCH ×2 (09:16→17:54)
[2023-05-11] MEDS: levETIRAcetam 500 MG/5 ML LIQUID UDC PO SCH ×2 (09:16→17:54)
[2023-05-11] MEDS: OMEGA-3 FATTY ACIDS/FISH OIL CAPSULE PO SCH (17:54)
[2023-05-11] MEDS: CHOLECALCIFEROL 1,000 UNIT TABLET PO SCH (17:54)
[2023-05-11] MEDS: ATORVASTATIN 20 MG TABLET PO SCH (17:54)
[2023-05-11] MEDS: MAGNESIUM OXIDE 400 MG TABLET PO SCH (17:54)
[2023-05-11] MEDS: ASPIRIN 81 MG TAB.CHEW PO SCH (17:54)
[2023-05-11] MEDS: MULTIVIT, IRON, MIN NO. 8, FA TABLET PO SCH (17:54)
[2023-05-11] MEDS: LATANOPROST OPHT DROP 2.5 ML BOTTLE EACHEYE SCH (21:06)
[2023-05-12] VITALS (10 sets, daily range): TEMP 97.9–98.3; O2SAT 98–99
[2023-05-12] MEDS: IPRATROPIUM/ALBUTEROL SULFATE 3 ML AMPUL.NEB NEB SCH ×4 (01:15→19:35)
[2023-05-12] MEDS: LEVOTHYROXINE SODIUM 112 MCG TABLET PO SCH (05:32)
[2023-05-12] MEDS: HYDROGEN PEROXIDE 3% 118 ML BOTTLE TP SCH ×2 (07:20→21:00)
[2023-05-12] MEDS: BUDESONIDE 0.5 MG/2 ML NEBU NEB SCH ×2 (07:20→19:36)
[2023-05-12] MEDS: TOLTERODINE 1 MG TABLET PO SCH ×2 (09:47→17:15)
[2023-05-12] MEDS: levETIRAcetam 500 MG/5 ML LIQUID UDC PO SCH ×2 (09:48→17:20)
[2023-05-12] MEDS: FOLIC ACID 1 MG TABLET PO SCH (09:48)
[2023-05-12] MEDS: FERROUS SULFATE 325 MG TABEC PO SCH (09:48)
[2023-05-12] MEDS: VITAMINS A AND D OINT 42 GM TUBE TP SCH ×2 (09:49→20:44)
[2023-05-12] MEDS: MIRALAX 17 GM POWD.PACK PO SCH ×2 (09:49→17:17)
[2023-05-12] MEDS: REMEDY ESSENTIAL ZINC PASTE 113 GM TP SCH ×2 (09:49→20:44)
[2023-05-12] MEDS: GUAIFENESIN SUGAR FREE 100 MG/5 ML UDC PO PRN ×2 (09:51→17:43)
[2023-05-12] MEDS: DORZOLAMIDE/TIMOLOL OPHT DROP 10 ML BOTTLE EACHEYE SCH ×2 (09:51→17:14)
[2023-05-12] MEDS: BENZONATATE 100 MG CAPSULE PO PRN ×2 (09:51→17:43)
[2023-05-12] MEDS: ATORVASTATIN 20 MG TABLET PO SCH (17:15)
[2023-05-12] MEDS: OMEGA-3 FATTY ACIDS/FISH OIL CAPSULE PO SCH (17:16)
[2023-05-12] MEDS: ASPIRIN 81 MG TAB.CHEW PO SCH (17:16)
[2023-05-12] MEDS: MAGNESIUM OXIDE 400 MG TABLET PO SCH (17:17)
[2023-05-12] MEDS: CHOLECALCIFEROL 1,000 UNIT TABLET PO SCH (17:18)
[2023-05-12] MEDS: MULTIVIT, IRON, MIN NO. 8, FA TABLET PO SCH (17:18)
[2023-05-12] MEDS: LATANOPROST OPHT DROP 2.5 ML BOTTLE EACHEYE SCH (20:44)
[2023-05-13] VITALS (10 sets, daily range): TEMP 97.6–98.4; O2SAT 97–99
[2023-05-13] MEDS: IPRATROPIUM/ALBUTEROL SULFATE 3 ML AMPUL.NEB NEB SCH ×4 (01:42→19:16)
[2023-05-13] MEDS: LEVOTHYROXINE SODIUM 112 MCG TABLET PO SCH (05:49)
[2023-05-13] MEDS: BUDESONIDE 0.5 MG/2 ML NEBU NEB SCH ×2 (07:47→19:17)
[2023-05-13] MEDS: HYDROGEN PEROXIDE 3% 118 ML BOTTLE TP SCH ×2 (07:47→19:17)
[2023-05-13] MEDS: DORZOLAMIDE/TIMOLOL OPHT DROP 10 ML BOTTLE EACHEYE SCH ×2 (09:47→17:02)
[2023-05-13] MEDS: TOLTERODINE 1 MG TABLET PO SCH ×2 (09:48→17:02)
[2023-05-13] MEDS: FERROUS SULFATE 325 MG TABEC PO SCH (09:51)
[2023-05-13] MEDS: FOLIC ACID 1 MG TABLET PO SCH (09:51)
[2023-05-13] MEDS: levETIRAcetam 500 MG/5 ML LIQUID UDC PO SCH ×2 (09:51→17:02)
[2023-05-13] MEDS: MIRALAX 17 GM POWD.PACK PO SCH ×2 (09:52→17:02)
[2023-05-13] MEDS: VITAMINS A AND D OINT 42 GM TUBE TP SCH ×2 (09:53→20:59)
[2023-05-13] MEDS: REMEDY ESSENTIAL ZINC PASTE 113 GM TP SCH ×2 (09:53→20:59)
[2023-05-13] MEDS: BENZONATATE 100 MG CAPSULE PO PRN ×2 (09:53→17:02)
[2023-05-13] MEDS: GUAIFENESIN SUGAR FREE 100 MG/5 ML UDC PO PRN ×2 (09:53→17:04)
[2023-05-13] MEDS: CHOLECALCIFEROL 1,000 UNIT TABLET PO SCH (17:02)
[2023-05-13] MEDS: MULTIVIT, IRON, MIN NO. 8, FA TABLET PO SCH (17:02)
[2023-05-13] MEDS: OMEGA-3 FATTY ACIDS/FISH OIL CAPSULE PO SCH (17:02)
[2023-05-13] MEDS: ASPIRIN 81 MG TAB.CHEW PO SCH (17:02)
[2023-05-13] MEDS: ATORVASTATIN 20 MG TABLET PO SCH (17:02)
[2023-05-13] MEDS: MAGNESIUM OXIDE 400 MG TABLET PO SCH (17:02)
[2023-05-13] MEDS: LATANOPROST OPHT DROP 2.5 ML BOTTLE EACHEYE SCH (20:59)
[2023-05-14] VITALS (9 sets, daily range): TEMP 97.9; O2SAT 97–99
[2023-05-14] MEDS: IPRATROPIUM/ALBUTEROL SULFATE 3 ML AMPUL.NEB NEB SCH ×4 (00:49→19:19)
[2023-05-14] MEDS: LEVOTHYROXINE SODIUM 112 MCG TABLET PO SCH (06:14)
[2023-05-14] MEDS: HYDROGEN PEROXIDE 3% 118 ML BOTTLE TP SCH ×2 (07:58→19:19)
[2023-05-14] MEDS: BUDESONIDE 0.5 MG/2 ML NEBU NEB SCH ×2 (07:58→19:19)
[2023-05-14] MEDS: DORZOLAMIDE/TIMOLOL OPHT DROP 10 ML BOTTLE EACHEYE SCH ×2 (09:00→17:39)
[2023-05-14] MEDS: FOLIC ACID 1 MG TABLET PO SCH (09:23)
[2023-05-14] MEDS: FERROUS SULFATE 325 MG TABEC PO SCH (09:23)
[2023-05-14] MEDS: TOLTERODINE 1 MG TABLET PO SCH ×2 (09:23→17:32)
[2023-05-14] MEDS: levETIRAcetam 500 MG/5 ML LIQUID UDC PO SCH ×2 (09:24→17:32)
[2023-05-14] MEDS: MIRALAX 17 GM POWD.PACK PO SCH ×2 (09:24→17:32)
[2023-05-14] MEDS: REMEDY ESSENTIAL ZINC PASTE 113 GM TP SCH ×2 (09:25→20:52)
[2023-05-14] MEDS: VITAMINS A AND D OINT 42 GM TUBE TP SCH ×2 (09:25→20:52)
[2023-05-14] MEDS: MAGNESIUM OXIDE 400 MG TABLET PO SCH (17:32)
[2023-05-14] MEDS: OMEGA-3 FATTY ACIDS/FISH OIL CAPSULE PO SCH (17:32)
[2023-05-14] MEDS: ASPIRIN 81 MG TAB.CHEW PO SCH (17:32)
[2023-05-14] MEDS: MULTIVIT, IRON, MIN NO. 8, FA TABLET PO SCH (17:33)
[2023-05-14] MEDS: CHOLECALCIFEROL 1,000 UNIT TABLET PO SCH (17:33)
[2023-05-14] MEDS: BENZONATATE 100 MG CAPSULE PO PRN (17:34)
[2023-05-14] MEDS: ATORVASTATIN 20 MG TABLET PO SCH (17:36)
[2023-05-14] MEDS: LATANOPROST OPHT DROP 2.5 ML BOTTLE EACHEYE SCH (20:52)
[2023-05-15] VITALS (10 sets, daily range): TEMP 97.9–98; O2SAT 97–99
[2023-05-15] MEDS: IPRATROPIUM/ALBUTEROL SULFATE 3 ML AMPUL.NEB NEB SCH ×4 (01:31→20:27)
[2023-05-15] MEDS: LEVOTHYROXINE SODIUM 112 MCG TABLET PO SCH (05:30)
[2023-05-15] MEDS: BUDESONIDE 0.5 MG/2 ML NEBU NEB SCH ×2 (07:10→20:27)
[2023-05-15] MEDS: DORZOLAMIDE/TIMOLOL OPHT DROP 10 ML BOTTLE EACHEYE SCH ×2 (09:40→17:14)
[2023-05-15] MEDS: TOLTERODINE 1 MG TABLET PO SCH ×2 (09:41→17:14)
[2023-05-15] MEDS: FOLIC ACID 1 MG TABLET PO SCH (09:42)
[2023-05-15] MEDS: FERROUS SULFATE 325 MG TABEC PO SCH (09:42)
[2023-05-15] MEDS: levETIRAcetam 500 MG/5 ML LIQUID UDC PO SCH ×2 (09:43→17:14)
[2023-05-15] MEDS: VITAMINS A AND D OINT 42 GM TUBE TP SCH ×2 (09:44→20:46)
[2023-05-15] MEDS: REMEDY ESSENTIAL ZINC PASTE 113 GM TP SCH ×2 (09:44→20:46)
[2023-05-15] MEDS: MIRALAX 17 GM POWD.PACK PO SCH ×2 (09:44→17:14)
[2023-05-15] MEDS: HYDROGEN PEROXIDE 3% 118 ML BOTTLE TP SCH ×2 (09:47→20:27)
[2023-05-15] MEDS: ATORVASTATIN 20 MG TABLET PO SCH (17:14)
[2023-05-15] MEDS: OMEGA-3 FATTY ACIDS/FISH OIL CAPSULE PO SCH (17:14)
[2023-05-15] MEDS: ASPIRIN 81 MG TAB.CHEW PO SCH (17:14)
[2023-05-15] MEDS: CHOLECALCIFEROL 1,000 UNIT TABLET PO SCH (17:15)
[2023-05-15] MEDS: MAGNESIUM OXIDE 400 MG TABLET PO SCH (17:15)
[2023-05-15] MEDS: BENZONATATE 100 MG CAPSULE PO PRN (17:15)
[2023-05-15] MEDS: GUAIFENESIN SUGAR FREE 100 MG/5 ML UDC PO PRN (17:15)
[2023-05-15] MEDS: MULTIVIT, IRON, MIN NO. 8, FA TABLET PO SCH (17:15)
[2023-05-15] MEDS: LATANOPROST OPHT DROP 2.5 ML BOTTLE EACHEYE SCH (20:46)
[2023-05-16] VITALS (10 sets, daily range): TEMP 98.6–98.7; O2SAT 98–99
[2023-05-16] MEDS: IPRATROPIUM/ALBUTEROL SULFATE 3 ML AMPUL.NEB NEB SCH ×4 (00:57→19:17)
[2023-05-16] MEDS: LEVOTHYROXINE SODIUM 112 MCG TABLET PO SCH (05:55)
[2023-05-16] MEDS: BUDESONIDE 0.5 MG/2 ML NEBU NEB SCH ×2 (07:43→19:17)
[2023-05-16] MEDS: HYDROGEN PEROXIDE 3% 118 ML BOTTLE TP SCH ×2 (07:43→19:17)
[2023-05-16] MEDS: DORZOLAMIDE/TIMOLOL OPHT DROP 10 ML BOTTLE EACHEYE SCH ×2 (08:48→17:00)
[2023-05-16] MEDS: FOLIC ACID 1 MG TABLET PO SCH (08:49)
[2023-05-16] MEDS: TOLTERODINE 1 MG TABLET PO SCH ×2 (08:49→17:00)
[2023-05-16] MEDS: FERROUS SULFATE 325 MG TABEC PO SCH (08:50)
[2023-05-16] MEDS: levETIRAcetam 500 MG/5 ML LIQUID UDC PO SCH ×2 (08:51→17:00)
[2023-05-16] MEDS: VITAMINS A AND D OINT 42 GM TUBE TP SCH ×2 (08:53→21:00)
[2023-05-16] MEDS: REMEDY ESSENTIAL ZINC PASTE 113 GM TP SCH ×2 (08:53→21:00)
[2023-05-16] MEDS: BENZONATATE 100 MG CAPSULE PO PRN ×2 (08:54→18:39)
[2023-05-16] MEDS: GUAIFENESIN SUGAR FREE 100 MG/5 ML UDC PO PRN (08:55)
[2023-05-16] MEDS: MIRALAX 17 GM POWD.PACK PO SCH ×2 (09:00→17:00)
[2023-05-16] MEDS: OMEGA-3 FATTY ACIDS/FISH OIL CAPSULE PO SCH (18:35)
[2023-05-16] MEDS: ASPIRIN 81 MG TAB.CHEW PO SCH (18:35)
[2023-05-16] MEDS: CHOLECALCIFEROL 1,000 UNIT TABLET PO SCH (18:36)
[2023-05-16] MEDS: MULTIVIT, IRON, MIN NO. 8, FA TABLET PO SCH (18:36)
[2023-05-16] MEDS: MAGNESIUM OXIDE 400 MG TABLET PO SCH (18:36)
[2023-05-16] MEDS: ATORVASTATIN 20 MG TABLET PO SCH (18:36)
[2023-05-16] MEDS: LATANOPROST OPHT DROP 2.5 ML BOTTLE EACHEYE SCH (21:00)
[2023-05-17] VITALS (10 sets, daily range): TEMP 97.7–98; O2SAT 98–99
[2023-05-17] MEDS: IPRATROPIUM/ALBUTEROL SULFATE 3 ML AMPUL.NEB NEB SCH ×5 (00:47→19:32)
[2023-05-17] MEDS: LEVOTHYROXINE SODIUM 112 MCG TABLET PO SCH (05:53)
[2023-05-17] MEDS: BUDESONIDE 0.5 MG/2 ML NEBU NEB SCH ×3 (07:29→19:32)
[2023-05-17] MEDS: HYDROGEN PEROXIDE 3% 118 ML BOTTLE TP SCH ×3 (07:29→20:39)
[2023-05-17] MEDS: DORZOLAMIDE/TIMOLOL OPHT DROP 10 ML BOTTLE EACHEYE SCH ×2 (09:32→17:59)
[2023-05-17] MEDS: TOLTERODINE 1 MG TABLET PO SCH ×2 (09:33→17:59)
[2023-05-17] MEDS: FERROUS SULFATE 325 MG TABEC PO SCH (09:33)
[2023-05-17] MEDS: FOLIC ACID 1 MG TABLET PO SCH (09:33)
[2023-05-17] MEDS: levETIRAcetam 500 MG/5 ML LIQUID UDC PO SCH ×2 (09:34→17:59)
[2023-05-17] MEDS: REMEDY ESSENTIAL ZINC PASTE 113 GM TP SCH ×2 (09:34→20:50)
[2023-05-17] MEDS: MIRALAX 17 GM POWD.PACK PO SCH ×2 (09:34→17:00)
[2023-05-17] MEDS: VITAMINS A AND D OINT 42 GM TUBE TP SCH ×2 (09:35→20:50)
[2023-05-17] MEDS: BENZONATATE 100 MG CAPSULE PO PRN ×2 (09:36→18:06)
[2023-05-17] MEDS: GUAIFENESIN SUGAR FREE 100 MG/5 ML UDC PO PRN ×2 (09:36→18:06)
[2023-05-17] MEDS: OMEGA-3 FATTY ACIDS/FISH OIL CAPSULE PO SCH (18:00)
[2023-05-17] MEDS: ASPIRIN 81 MG TAB.CHEW PO SCH (18:00)
[2023-05-17] MEDS: ATORVASTATIN 20 MG TABLET PO SCH (18:01)
[2023-05-17] MEDS: MULTIVIT, IRON, MIN NO. 8, FA TABLET PO SCH (18:01)
[2023-05-17] MEDS: MAGNESIUM OXIDE 400 MG TABLET PO SCH (18:01)
[2023-05-17] MEDS: CHOLECALCIFEROL 1,000 UNIT TABLET PO SCH (18:02)
[2023-05-17] MEDS: LATANOPROST OPHT DROP 2.5 ML BOTTLE EACHEYE SCH (20:50)
[2023-05-18] VITALS (10 sets, daily range): TEMP 97.5–98.8; O2SAT 98–99
[2023-05-18] MEDS: IPRATROPIUM/ALBUTEROL SULFATE 3 ML AMPUL.NEB NEB SCH ×4 (00:40→19:15)
[2023-05-18] MEDS: LEVOTHYROXINE SODIUM 112 MCG TABLET PO SCH (06:06)
[2023-05-18] MEDS: BUDESONIDE 0.5 MG/2 ML NEBU NEB SCH ×2 (07:22→19:15)
[2023-05-18] MEDS: HYDROGEN PEROXIDE 3% 118 ML BOTTLE TP SCH ×2 (09:00→19:15)
[2023-05-18] MEDS: FERROUS SULFATE 325 MG TABEC PO SCH (09:20)
[2023-05-18] MEDS: DORZOLAMIDE/TIMOLOL OPHT DROP 10 ML BOTTLE EACHEYE SCH ×2 (09:20→16:37)
[2023-05-18] MEDS: TOLTERODINE 1 MG TABLET PO SCH ×2 (09:20→16:37)
[2023-05-18] MEDS: FOLIC ACID 1 MG TABLET PO SCH (09:20)
[2023-05-18] MEDS: levETIRAcetam 500 MG/5 ML LIQUID UDC PO SCH ×2 (09:21→16:37)
[2023-05-18] MEDS: REMEDY ESSENTIAL ZINC PASTE 113 GM TP SCH ×2 (09:21→21:20)
[2023-05-18] MEDS: VITAMINS A AND D OINT 42 GM TUBE TP SCH ×2 (09:21→21:20)
[2023-05-18] MEDS: MIRALAX 17 GM POWD.PACK PO SCH ×2 (09:21→16:37)
[2023-05-18] MEDS: MULTIVIT, IRON, MIN NO. 8, FA TABLET PO SCH (17:31)
[2023-05-18] MEDS: OMEGA-3 FATTY ACIDS/FISH OIL CAPSULE PO SCH (17:31)
[2023-05-18] MEDS: ATORVASTATIN 20 MG TABLET PO SCH (17:31)
[2023-05-18] MEDS: ASPIRIN 81 MG TAB.CHEW PO SCH (17:31)
[2023-05-18] MEDS: CHOLECALCIFEROL 1,000 UNIT TABLET PO SCH (17:31)
[2023-05-18] MEDS: MAGNESIUM OXIDE 400 MG TABLET PO SCH (17:31)
[2023-05-18] MEDS: LATANOPROST OPHT DROP 2.5 ML BOTTLE EACHEYE SCH (21:20)
[2023-05-19] VITALS (10 sets, daily range): TEMP 97.9–98.5; O2SAT 97–99
[2023-05-19] MEDS: IPRATROPIUM/ALBUTEROL SULFATE 3 ML AMPUL.NEB NEB SCH ×4 (00:54→19:25)
[2023-05-19] MEDS: LEVOTHYROXINE SODIUM 112 MCG TABLET PO SCH (05:51)
[2023-05-19] MEDS: BUDESONIDE 0.5 MG/2 ML NEBU NEB SCH ×2 (08:07→19:25)
[2023-05-19] MEDS: HYDROGEN PEROXIDE 3% 118 ML BOTTLE TP SCH ×2 (08:07→19:25)
[2023-05-19] MEDS: FERROUS SULFATE 325 MG TABEC PO SCH (09:17)
[2023-05-19] MEDS: DORZOLAMIDE/TIMOLOL OPHT DROP 10 ML BOTTLE EACHEYE SCH ×2 (09:17→17:35)
[2023-05-19] MEDS: TOLTERODINE 1 MG TABLET PO SCH ×2 (09:17→17:35)
[2023-05-19] MEDS: MIRALAX 17 GM POWD.PACK PO SCH ×2 (09:18→17:35)
[2023-05-19] MEDS: FOLIC ACID 1 MG TABLET PO SCH (09:18)
[2023-05-19] MEDS: levETIRAcetam 500 MG/5 ML LIQUID UDC PO SCH ×2 (09:18→17:35)
[2023-05-19] MEDS: REMEDY ESSENTIAL ZINC PASTE 113 GM TP SCH ×2 (09:18→20:43)
[2023-05-19] MEDS: VITAMINS A AND D OINT 42 GM TUBE TP SCH ×2 (09:19→20:43)
[2023-05-19] MEDS: ASPIRIN 81 MG TAB.CHEW PO SCH (17:35)
[2023-05-19] MEDS: MAGNESIUM OXIDE 400 MG TABLET PO SCH (17:35)
[2023-05-19] MEDS: OMEGA-3 FATTY ACIDS/FISH OIL CAPSULE PO SCH (17:35)
[2023-05-19] MEDS: MULTIVIT, IRON, MIN NO. 8, FA TABLET PO SCH (17:35)
[2023-05-19] MEDS: ATORVASTATIN 20 MG TABLET PO SCH (17:35)
[2023-05-19] MEDS: CHOLECALCIFEROL 1,000 UNIT TABLET PO SCH (17:35)
[2023-05-19] MEDS: LATANOPROST OPHT DROP 2.5 ML BOTTLE EACHEYE SCH (20:43)
[2023-05-20] VITALS (10 sets, daily range): TEMP 97.7–98; O2SAT 98–99
[2023-05-20] MEDS: IPRATROPIUM/ALBUTEROL SULFATE 3 ML AMPUL.NEB NEB SCH ×4 (01:27→19:07)
[2023-05-20] MEDS: LEVOTHYROXINE SODIUM 112 MCG TABLET PO SCH (05:43)
[2023-05-20] MEDS: TOLTERODINE 1 MG TABLET PO SCH ×2 (08:26→16:46)
[2023-05-20] MEDS: DORZOLAMIDE/TIMOLOL OPHT DROP 10 ML BOTTLE EACHEYE SCH ×2 (08:26→16:46)
[2023-05-20] MEDS: HYDROGEN PEROXIDE 3% 118 ML BOTTLE TP SCH ×2 (08:27→19:07)
[2023-05-20] MEDS: FERROUS SULFATE 325 MG TABEC PO SCH (08:27)
[2023-05-20] MEDS: BUDESONIDE 0.5 MG/2 ML NEBU NEB SCH ×2 (08:27→19:07)
[2023-05-20] MEDS: levETIRAcetam 500 MG/5 ML LIQUID UDC PO SCH ×2 (08:29→16:46)
[2023-05-20] MEDS: FOLIC ACID 1 MG TABLET PO SCH (08:29)
[2023-05-20] MEDS: MIRALAX 17 GM POWD.PACK PO SCH ×2 (08:30→16:46)
[2023-05-20] MEDS: GUAIFENESIN SUGAR FREE 100 MG/5 ML UDC PO PRN ×2 (08:30→16:46)
[2023-05-20] MEDS: VITAMINS A AND D OINT 42 GM TUBE TP SCH ×2 (08:30→21:35)
[2023-05-20] MEDS: REMEDY ESSENTIAL ZINC PASTE 113 GM TP SCH ×2 (08:30→21:35)
[2023-05-20] MEDS: BENZONATATE 100 MG CAPSULE PO PRN (16:46)
[2023-05-20] MEDS: CHOLECALCIFEROL 1,000 UNIT TABLET PO SCH (17:44)
[2023-05-20] MEDS: MAGNESIUM OXIDE 400 MG TABLET PO SCH (17:44)
[2023-05-20] MEDS: OMEGA-3 FATTY ACIDS/FISH OIL CAPSULE PO SCH (17:44)
[2023-05-20] MEDS: ASPIRIN 81 MG TAB.CHEW PO SCH (17:44)
[2023-05-20] MEDS: ATORVASTATIN 20 MG TABLET PO SCH (17:44)
[2023-05-20] MEDS: MULTIVIT, IRON, MIN NO. 8, FA TABLET PO SCH (17:44)
[2023-05-20] MEDS: LATANOPROST OPHT DROP 2.5 ML BOTTLE EACHEYE SCH (21:34)
[2023-05-21] VITALS (10 sets, daily range): TEMP 97.6–98.6; O2SAT 97–99
[2023-05-21] MEDS: IPRATROPIUM/ALBUTEROL SULFATE 3 ML AMPUL.NEB NEB SCH ×4 (01:11→19:21)
[2023-05-21] MEDS: LEVOTHYROXINE SODIUM 112 MCG TABLET PO SCH (06:10)
[2023-05-21] MEDS: BUDESONIDE 0.5 MG/2 ML NEBU NEB SCH ×2 (07:38→19:21)
[2023-05-21] MEDS: HYDROGEN PEROXIDE 3% 118 ML BOTTLE TP SCH ×2 (07:38→19:21)
[2023-05-21] MEDS: DORZOLAMIDE/TIMOLOL OPHT DROP 10 ML BOTTLE EACHEYE SCH ×2 (09:20→16:56)
[2023-05-21] MEDS: TOLTERODINE 1 MG TABLET PO SCH ×2 (09:21→16:57)
[2023-05-21] MEDS: levETIRAcetam 500 MG/5 ML LIQUID UDC PO SCH ×2 (09:22→16:57)
[2023-05-21] MEDS: FOLIC ACID 1 MG TABLET PO SCH (09:22)
[2023-05-21] MEDS: FERROUS SULFATE 325 MG TABEC PO SCH (09:22)
[2023-05-21] MEDS: MIRALAX 17 GM POWD.PACK PO SCH ×2 (09:23→16:58)
[2023-05-21] MEDS: VITAMINS A AND D OINT 42 GM TUBE TP SCH ×2 (09:23→21:32)
[2023-05-21] MEDS: REMEDY ESSENTIAL ZINC PASTE 113 GM TP SCH ×2 (09:23→21:31)
[2023-05-21] MEDS: GUAIFENESIN SUGAR FREE 100 MG/5 ML UDC PO PRN (09:24)
[2023-05-21] MEDS: BENZONATATE 100 MG CAPSULE PO PRN (17:20)
[2023-05-21] MEDS: ATORVASTATIN 20 MG TABLET PO SCH (17:20)
[2023-05-21] MEDS: OMEGA-3 FATTY ACIDS/FISH OIL CAPSULE PO SCH (17:20)
[2023-05-21] MEDS: CHOLECALCIFEROL 1,000 UNIT TABLET PO SCH (17:20)
[2023-05-21] MEDS: MAGNESIUM OXIDE 400 MG TABLET PO SCH (17:20)
[2023-05-21] MEDS: MULTIVIT, IRON, MIN NO. 8, FA TABLET PO SCH (17:20)
[2023-05-21] MEDS: ASPIRIN 81 MG TAB.CHEW PO SCH (17:20)
[2023-05-21] MEDS: LATANOPROST OPHT DROP 2.5 ML BOTTLE EACHEYE SCH (21:31)
[2023-05-22] VITALS (10 sets, daily range): TEMP 97.7–98.1; O2SAT 97–99
[2023-05-22] MEDS: IPRATROPIUM/ALBUTEROL SULFATE 3 ML AMPUL.NEB NEB SCH ×4 (01:25→19:13)
[2023-05-22] MEDS: LEVOTHYROXINE SODIUM 112 MCG TABLET PO SCH (05:37)
[2023-05-22] MEDS: BUDESONIDE 0.5 MG/2 ML NEBU NEB SCH ×2 (07:06→19:13)
[2023-05-22] MEDS: HYDROGEN PEROXIDE 3% 118 ML BOTTLE TP SCH ×2 (07:06→19:13)
[2023-05-22] MEDS: FOLIC ACID 1 MG TABLET PO SCH (09:56)
[2023-05-22] MEDS: levETIRAcetam 500 MG/5 ML LIQUID UDC PO SCH ×2 (09:56→17:00)
[2023-05-22] MEDS: FERROUS SULFATE 325 MG TABEC PO SCH (09:56)
[2023-05-22] MEDS: REMEDY ESSENTIAL ZINC PASTE 113 GM TP SCH ×2 (09:56→21:18)
[2023-05-22] MEDS: TOLTERODINE 1 MG TABLET PO SCH ×2 (09:56→17:00)
[2023-05-22] MEDS: DORZOLAMIDE/TIMOLOL OPHT DROP 10 ML BOTTLE EACHEYE SCH ×2 (09:56→17:00)
[2023-05-22] MEDS: MIRALAX 17 GM POWD.PACK PO SCH ×2 (09:56→17:00)
[2023-05-22] MEDS: VITAMINS A AND D OINT 42 GM TUBE TP SCH ×2 (09:57→21:18)
[2023-05-22] MEDS: ATORVASTATIN 20 MG TABLET PO SCH (18:34)
[2023-05-22] MEDS: ASPIRIN 81 MG TAB.CHEW PO SCH (18:34)
[2023-05-22] MEDS: OMEGA-3 FATTY ACIDS/FISH OIL CAPSULE PO SCH (18:34)
[2023-05-22] MEDS: CHOLECALCIFEROL 1,000 UNIT TABLET PO SCH (18:34)
[2023-05-22] MEDS: MULTIVIT, IRON, MIN NO. 8, FA TABLET PO SCH (18:34)
[2023-05-22] MEDS: MAGNESIUM OXIDE 400 MG TABLET PO SCH (18:34)
[2023-05-22] MEDS: LATANOPROST OPHT DROP 2.5 ML BOTTLE EACHEYE SCH (21:18)
[2023-05-23] VITALS (10 sets, daily range): TEMP 97.7–98.4; O2SAT 97–99
[2023-05-23] MEDS: IPRATROPIUM/ALBUTEROL SULFATE 3 ML AMPUL.NEB NEB SCH ×4 (00:41→19:03)
[2023-05-23] MEDS: LEVOTHYROXINE SODIUM 112 MCG TABLET PO SCH (06:13)
[2023-05-23] MEDS: BUDESONIDE 0.5 MG/2 ML NEBU NEB SCH ×2 (07:25→19:03)
[2023-05-23] MEDS: HYDROGEN PEROXIDE 3% 118 ML BOTTLE TP SCH ×2 (07:25→19:04)
[2023-05-23] MEDS: VITAMINS A AND D OINT 42 GM TUBE TP SCH ×2 (09:00→20:28)
[2023-05-23] MEDS: FOLIC ACID 1 MG TABLET PO SCH (09:00)
[2023-05-23] MEDS: DORZOLAMIDE/TIMOLOL OPHT DROP 10 ML BOTTLE EACHEYE SCH ×2 (09:40→17:00)
[2023-05-23] MEDS: TOLTERODINE 1 MG TABLET PO SCH ×2 (09:41→17:00)
[2023-05-23] MEDS: FERROUS SULFATE 325 MG TABEC PO SCH (09:42)
[2023-05-23] MEDS: levETIRAcetam 500 MG/5 ML LIQUID UDC PO SCH ×2 (09:42→17:00)
[2023-05-23] MEDS: MIRALAX 17 GM POWD.PACK PO SCH ×2 (09:43→17:00)
[2023-05-23] MEDS: REMEDY ESSENTIAL ZINC PASTE 113 GM TP SCH ×2 (09:44→20:28)
[2023-05-23] MEDS: BENZONATATE 100 MG CAPSULE PO PRN ×2 (09:44→18:07)
[2023-05-23] MEDS: GUAIFENESIN SUGAR FREE 100 MG/5 ML UDC PO PRN ×2 (09:44→18:07)
[2023-05-23] MEDS: ASPIRIN 81 MG TAB.CHEW PO SCH (18:05)
[2023-05-23] MEDS: OMEGA-3 FATTY ACIDS/FISH OIL CAPSULE PO SCH (18:05)
[2023-05-23] MEDS: ATORVASTATIN 20 MG TABLET PO SCH (18:06)
[2023-05-23] MEDS: MULTIVIT, IRON, MIN NO. 8, FA TABLET PO SCH (18:06)
[2023-05-23] MEDS: MAGNESIUM OXIDE 400 MG TABLET PO SCH (18:06)
[2023-05-23] MEDS: CHOLECALCIFEROL 1,000 UNIT TABLET PO SCH (18:06)
[2023-05-23] MEDS: LATANOPROST OPHT DROP 2.5 ML BOTTLE EACHEYE SCH (20:28)
[2023-05-24] VITALS (10 sets, daily range): TEMP 97.8–98.5; O2SAT 97–99
[2023-05-24] MEDS: IPRATROPIUM/ALBUTEROL SULFATE 3 ML AMPUL.NEB NEB SCH ×4 (00:38→19:20)
[2023-05-24] MEDS: LEVOTHYROXINE SODIUM 112 MCG TABLET PO SCH (06:08)
[2023-05-24] MEDS: BUDESONIDE 0.5 MG/2 ML NEBU NEB SCH ×2 (07:41→19:20)
[2023-05-24] MEDS: VITAMINS A AND D OINT 42 GM TUBE TP SCH ×2 (09:00→20:27)
[2023-05-24] MEDS: REMEDY ESSENTIAL ZINC PASTE 113 GM TP SCH ×2 (09:00→20:27)
[2023-05-24] MEDS: DORZOLAMIDE/TIMOLOL OPHT DROP 10 ML BOTTLE EACHEYE SCH ×2 (09:46→17:55)
[2023-05-24] MEDS: TOLTERODINE 1 MG TABLET PO SCH ×2 (09:46→17:55)
[2023-05-24] MEDS: levETIRAcetam 500 MG/5 ML LIQUID UDC PO SCH ×2 (09:47→17:55)
[2023-05-24] MEDS: FERROUS SULFATE 325 MG TABEC PO SCH (09:47)
[2023-05-24] MEDS: FOLIC ACID 1 MG TABLET PO SCH (09:47)
[2023-05-24] MEDS: MIRALAX 17 GM POWD.PACK PO SCH ×2 (09:47→17:55)
[2023-05-24] MEDS: HYDROGEN PEROXIDE 3% 118 ML BOTTLE TP SCH ×2 (09:50→21:25)
[2023-05-24] MEDS: GUAIFENESIN SUGAR FREE 100 MG/5 ML UDC PO PRN (09:51)
[2023-05-24] MEDS: BENZONATATE 100 MG CAPSULE PO PRN (09:51)
[2023-05-24] MEDS: CHOLECALCIFEROL 1,000 UNIT TABLET PO SCH (17:55)
[2023-05-24] MEDS: ASPIRIN 81 MG TAB.CHEW PO SCH (17:55)
[2023-05-24] MEDS: MAGNESIUM OXIDE 400 MG TABLET PO SCH (17:55)
[2023-05-24] MEDS: ATORVASTATIN 20 MG TABLET PO SCH (17:55)
[2023-05-24] MEDS: MULTIVIT, IRON, MIN NO. 8, FA TABLET PO SCH (17:55)
[2023-05-24] MEDS: OMEGA-3 FATTY ACIDS/FISH OIL CAPSULE PO SCH (17:55)
[2023-05-24] MEDS: LATANOPROST OPHT DROP 2.5 ML BOTTLE EACHEYE SCH (20:27)
[2023-05-25] VITALS (10 sets, daily range): TEMP 97.7–98.5; O2SAT 97–99
[2023-05-25] MEDS: IPRATROPIUM/ALBUTEROL SULFATE 3 ML AMPUL.NEB NEB SCH ×4 (00:48→19:05)
[2023-05-25] MEDS: LEVOTHYROXINE SODIUM 112 MCG TABLET PO SCH (07:10)
[2023-05-25] MEDS: BUDESONIDE 0.5 MG/2 ML NEBU NEB SCH ×2 (07:21→19:05)
[2023-05-25] MEDS: HYDROGEN PEROXIDE 3% 118 ML BOTTLE TP SCH ×2 (07:23→21:00)
[2023-05-25] MEDS: DORZOLAMIDE/TIMOLOL OPHT DROP 10 ML BOTTLE EACHEYE SCH ×2 (08:59→17:11)
[2023-05-25] MEDS: TOLTERODINE 1 MG TABLET PO SCH ×2 (08:59→17:11)
[2023-05-25] MEDS: FERROUS SULFATE 325 MG TABEC PO SCH (09:00)
[2023-05-25] MEDS: FOLIC ACID 1 MG TABLET PO SCH (09:00)
[2023-05-25] MEDS: MIRALAX 17 GM POWD.PACK PO SCH ×2 (09:01→17:11)
[2023-05-25] MEDS: REMEDY ESSENTIAL ZINC PASTE 113 GM TP SCH ×2 (09:01→21:32)
[2023-05-25] MEDS: levETIRAcetam 500 MG/5 ML LIQUID UDC PO SCH ×2 (09:01→17:11)
[2023-05-25] MEDS: BENZONATATE 100 MG CAPSULE PO PRN ×2 (09:01→18:31)
[2023-05-25] MEDS: GUAIFENESIN SUGAR FREE 100 MG/5 ML UDC PO PRN ×2 (09:01→18:31)
[2023-05-25] MEDS: VITAMINS A AND D OINT 42 GM TUBE TP SCH ×2 (09:01→21:32)
[2023-05-25] MEDS: ASPIRIN 81 MG TAB.CHEW PO SCH (17:11)
[2023-05-25] MEDS: MAGNESIUM OXIDE 400 MG TABLET PO SCH (17:11)
[2023-05-25] MEDS: ATORVASTATIN 20 MG TABLET PO SCH (17:11)
[2023-05-25] MEDS: OMEGA-3 FATTY ACIDS/FISH OIL CAPSULE PO SCH (17:11)
[2023-05-25] MEDS: MULTIVIT, IRON, MIN NO. 8, FA TABLET PO SCH (17:11)
[2023-05-25] MEDS: CHOLECALCIFEROL 1,000 UNIT TABLET PO SCH (17:11)
[2023-05-25] MEDS: LATANOPROST OPHT DROP 2.5 ML BOTTLE EACHEYE SCH (21:32)
[2023-05-26] VITALS (12 sets, daily range): TEMP 97.9–98; O2SAT 97–99
[2023-05-26] MEDS: IPRATROPIUM/ALBUTEROL SULFATE 3 ML AMPUL.NEB NEB SCH ×4 (01:39→19:01)
[2023-05-26] MEDS: LEVOTHYROXINE SODIUM 112 MCG TABLET PO SCH (05:46)
[2023-05-26] MEDS: BUDESONIDE 0.5 MG/2 ML NEBU NEB SCH ×2 (07:52→19:01)
[2023-05-26] MEDS: HYDROGEN PEROXIDE 3% 118 ML BOTTLE TP SCH ×2 (08:17→19:01)
[2023-05-26] MEDS: TOLTERODINE 1 MG TABLET PO SCH ×2 (09:20→17:16)
[2023-05-26] MEDS: FOLIC ACID 1 MG TABLET PO SCH (09:20)
[2023-05-26] MEDS: FERROUS SULFATE 325 MG TABEC PO SCH (09:20)
[2023-05-26] MEDS: DORZOLAMIDE/TIMOLOL OPHT DROP 10 ML BOTTLE EACHEYE SCH ×2 (09:20→17:15)
[2023-05-26] MEDS: REMEDY ESSENTIAL ZINC PASTE 113 GM TP SCH ×2 (09:21→21:29)
[2023-05-26] MEDS: MIRALAX 17 GM POWD.PACK PO SCH ×2 (09:21→17:16)
[2023-05-26] MEDS: levETIRAcetam 500 MG/5 ML LIQUID UDC PO SCH ×2 (09:21→17:16)
[2023-05-26] MEDS: VITAMINS A AND D OINT 42 GM TUBE TP SCH ×2 (09:21→21:29)
[2023-05-26] MEDS: GUAIFENESIN SUGAR FREE 100 MG/5 ML UDC PO PRN ×2 (09:22→17:25)
[2023-05-26] MEDS: BENZONATATE 100 MG CAPSULE PO PRN ×2 (09:23→17:25)
[2023-05-26] MEDS: ASPIRIN 81 MG TAB.CHEW PO SCH (17:17)
[2023-05-26] MEDS: OMEGA-3 FATTY ACIDS/FISH OIL CAPSULE PO SCH (17:17)
[2023-05-26] MEDS: CHOLECALCIFEROL 1,000 UNIT TABLET PO SCH (17:18)
[2023-05-26] MEDS: MULTIVIT, IRON, MIN NO. 8, FA TABLET PO SCH (17:18)
[2023-05-26] MEDS: ATORVASTATIN 20 MG TABLET PO SCH (17:18)
[2023-05-26] MEDS: MAGNESIUM OXIDE 400 MG TABLET PO SCH (17:18)
[2023-05-26] MEDS: LATANOPROST OPHT DROP 2.5 ML BOTTLE EACHEYE SCH (21:29)
[2023-05-27] VITALS (10 sets, daily range): TEMP 97.8–98; O2SAT 97–99
[2023-05-27] MEDS: IPRATROPIUM/ALBUTEROL SULFATE 3 ML AMPUL.NEB NEB SCH ×4 (01:51→19:20)
[2023-05-27] MEDS: LEVOTHYROXINE SODIUM 112 MCG TABLET PO SCH (05:51)
[2023-05-27] MEDS: HYDROGEN PEROXIDE 3% 118 ML BOTTLE TP SCH ×2 (07:39→19:20)
[2023-05-27] MEDS: BUDESONIDE 0.5 MG/2 ML NEBU NEB SCH ×2 (07:39→19:20)
[2023-05-27] MEDS: TOLTERODINE 1 MG TABLET PO SCH ×2 (09:21→16:46)
[2023-05-27] MEDS: DORZOLAMIDE/TIMOLOL OPHT DROP 10 ML BOTTLE EACHEYE SCH ×2 (09:21→16:46)
[2023-05-27] MEDS: FOLIC ACID 1 MG TABLET PO SCH (09:22)
[2023-05-27] MEDS: MIRALAX 17 GM POWD.PACK PO SCH ×2 (09:22→16:46)
[2023-05-27] MEDS: levETIRAcetam 500 MG/5 ML LIQUID UDC PO SCH ×2 (09:22→16:46)
[2023-05-27] MEDS: FERROUS SULFATE 325 MG TABEC PO SCH (09:22)
[2023-05-27] MEDS: VITAMINS A AND D OINT 42 GM TUBE TP SCH ×2 (09:23→21:55)
[2023-05-27] MEDS: REMEDY ESSENTIAL ZINC PASTE 113 GM TP SCH ×2 (09:23→21:55)
[2023-05-27] MEDS: BENZONATATE 100 MG CAPSULE PO PRN ×2 (09:25→16:52)
[2023-05-27] MEDS: GUAIFENESIN SUGAR FREE 100 MG/5 ML UDC PO PRN ×2 (09:25→16:52)
[2023-05-27] MEDS: OMEGA-3 FATTY ACIDS/FISH OIL CAPSULE PO SCH (17:13)
[2023-05-27] MEDS: MAGNESIUM OXIDE 400 MG TABLET PO SCH (17:13)
[2023-05-27] MEDS: ATORVASTATIN 20 MG TABLET PO SCH (17:13)
[2023-05-27] MEDS: ASPIRIN 81 MG TAB.CHEW PO SCH (17:13)
[2023-05-27] MEDS: CHOLECALCIFEROL 1,000 UNIT TABLET PO SCH (17:14)
[2023-05-27] MEDS: MULTIVIT, IRON, MIN NO. 8, FA TABLET PO SCH (17:14)
[2023-05-27] MEDS: LATANOPROST OPHT DROP 2.5 ML BOTTLE EACHEYE SCH (21:55)
[2023-05-28] VITALS (10 sets, daily range): TEMP 97.9; O2SAT 98–99
[2023-05-28] MEDS: IPRATROPIUM/ALBUTEROL SULFATE 3 ML AMPUL.NEB NEB SCH ×4 (00:30→19:12)
[2023-05-28] MEDS: LEVOTHYROXINE SODIUM 112 MCG TABLET PO SCH (06:04)
[2023-05-28] MEDS: BUDESONIDE 0.5 MG/2 ML NEBU NEB SCH ×2 (07:54→19:13)
[2023-05-28] MEDS: HYDROGEN PEROXIDE 3% 118 ML BOTTLE TP SCH ×2 (08:26→19:13)
[2023-05-28] MEDS: TOLTERODINE 1 MG TABLET PO SCH ×2 (09:19→16:48)
[2023-05-28] MEDS: FOLIC ACID 1 MG TABLET PO SCH (09:19)
[2023-05-28] MEDS: levETIRAcetam 500 MG/5 ML LIQUID UDC PO SCH ×2 (09:19→16:48)
[2023-05-28] MEDS: REMEDY ESSENTIAL ZINC PASTE 113 GM TP SCH ×2 (09:20→21:30)
[2023-05-28] MEDS: MIRALAX 17 GM POWD.PACK PO SCH ×2 (09:20→16:48)
[2023-05-28] MEDS: VITAMINS A AND D OINT 42 GM TUBE TP SCH ×2 (09:21→21:30)
[2023-05-28] MEDS: FERROUS SULFATE 325 MG TABEC PO SCH (09:21)
[2023-05-28] MEDS: BENZONATATE 100 MG CAPSULE PO PRN (09:24)
[2023-05-28] MEDS: DORZOLAMIDE/TIMOLOL OPHT DROP 10 ML BOTTLE EACHEYE SCH ×2 (09:25→16:48)
[2023-05-28] MEDS: CHOLECALCIFEROL 1,000 UNIT TABLET PO SCH (18:01)
[2023-05-28] MEDS: ASPIRIN 81 MG TAB.CHEW PO SCH (18:01)
[2023-05-28] MEDS: ATORVASTATIN 20 MG TABLET PO SCH (18:01)
[2023-05-28] MEDS: MULTIVIT, IRON, MIN NO. 8, FA TABLET PO SCH (18:01)
[2023-05-28] MEDS: MAGNESIUM OXIDE 400 MG TABLET PO SCH (18:01)
[2023-05-28] MEDS: OMEGA-3 FATTY ACIDS/FISH OIL CAPSULE PO SCH (18:01)
[2023-05-28] MEDS: LATANOPROST OPHT DROP 2.5 ML BOTTLE EACHEYE SCH (21:30)
[2023-05-29] VITALS (10 sets, daily range): TEMP 97.6–98; O2SAT 98–99
[2023-05-29] MEDS: BENZONATATE 100 MG CAPSULE PO PRN ×3 (01:00→17:52)
[2023-05-29] MEDS: IPRATROPIUM/ALBUTEROL SULFATE 3 ML AMPUL.NEB NEB SCH ×4 (01:24→19:13)
[2023-05-29] MEDS: LEVOTHYROXINE SODIUM 112 MCG TABLET PO SCH (05:49)
[2023-05-29] MEDS: BUDESONIDE 0.5 MG/2 ML NEBU NEB SCH ×2 (07:50→19:13)
[2023-05-29] MEDS: HYDROGEN PEROXIDE 3% 118 ML BOTTLE TP SCH ×2 (07:50→19:13)
[2023-05-29] MEDS: DORZOLAMIDE/TIMOLOL OPHT DROP 10 ML BOTTLE EACHEYE SCH ×2 (09:22→17:46)
[2023-05-29] MEDS: FERROUS SULFATE 325 MG TABEC PO SCH (09:22)
[2023-05-29] MEDS: TOLTERODINE 1 MG TABLET PO SCH ×2 (09:22→17:46)
[2023-05-29] MEDS: FOLIC ACID 1 MG TABLET PO SCH (09:22)
[2023-05-29] MEDS: levETIRAcetam 500 MG/5 ML LIQUID UDC PO SCH ×2 (09:23→17:46)
[2023-05-29] MEDS: VITAMINS A AND D OINT 42 GM TUBE TP SCH ×2 (09:23→21:50)
[2023-05-29] MEDS: REMEDY ESSENTIAL ZINC PASTE 113 GM TP SCH ×2 (09:23→21:50)
[2023-05-29] MEDS: MIRALAX 17 GM POWD.PACK PO SCH ×2 (09:23→17:46)
[2023-05-29] MEDS: MAGNESIUM OXIDE 400 MG TABLET PO SCH (17:47)
[2023-05-29] MEDS: OMEGA-3 FATTY ACIDS/FISH OIL CAPSULE PO SCH (17:47)
[2023-05-29] MEDS: ATORVASTATIN 20 MG TABLET PO SCH (17:47)
[2023-05-29] MEDS: ASPIRIN 81 MG TAB.CHEW PO SCH (17:47)
[2023-05-29] MEDS: CHOLECALCIFEROL 1,000 UNIT TABLET PO SCH (17:48)
[2023-05-29] MEDS: MULTIVIT, IRON, MIN NO. 8, FA TABLET PO SCH (17:48)
[2023-05-29] MEDS: LATANOPROST OPHT DROP 2.5 ML BOTTLE EACHEYE SCH (21:49)
[2023-05-30] VITALS (10 sets, daily range): TEMP 97.8–98.1; O2SAT 97–99
[2023-05-30] MEDS: IPRATROPIUM/ALBUTEROL SULFATE 3 ML AMPUL.NEB NEB SCH ×4 (01:31→19:02)
[2023-05-30] MEDS: LEVOTHYROXINE SODIUM 112 MCG TABLET PO SCH (06:03)
[2023-05-30] MEDS: BUDESONIDE 0.5 MG/2 ML NEBU NEB SCH ×2 (07:29→19:02)
[2023-05-30] MEDS: HYDROGEN PEROXIDE 3% 118 ML BOTTLE TP SCH ×2 (07:33→19:02)
[2023-05-30] MEDS: TOLTERODINE 1 MG TABLET PO SCH ×2 (09:10→17:45)
[2023-05-30] MEDS: FERROUS SULFATE 325 MG TABEC PO SCH (09:10)
[2023-05-30] MEDS: DORZOLAMIDE/TIMOLOL OPHT DROP 10 ML BOTTLE EACHEYE SCH ×2 (09:10→17:45)
[2023-05-30] MEDS: MIRALAX 17 GM POWD.PACK PO SCH ×2 (09:11→17:46)
[2023-05-30] MEDS: VITAMINS A AND D OINT 42 GM TUBE TP SCH ×2 (09:11→21:00)
[2023-05-30] MEDS: levETIRAcetam 500 MG/5 ML LIQUID UDC PO SCH ×2 (09:11→17:46)
[2023-05-30] MEDS: REMEDY ESSENTIAL ZINC PASTE 113 GM TP SCH ×2 (09:11→21:00)
[2023-05-30] MEDS: FOLIC ACID 1 MG TABLET PO SCH (09:11)
[2023-05-30] MEDS: OMEGA-3 FATTY ACIDS/FISH OIL CAPSULE PO SCH (17:46)
[2023-05-30] MEDS: MAGNESIUM OXIDE 400 MG TABLET PO SCH (17:46)
[2023-05-30] MEDS: ATORVASTATIN 20 MG TABLET PO SCH (17:46)
[2023-05-30] MEDS: ASPIRIN 81 MG TAB.CHEW PO SCH (17:46)
[2023-05-30] MEDS: CHOLECALCIFEROL 1,000 UNIT TABLET PO SCH (17:47)
[2023-05-30] MEDS: MULTIVIT, IRON, MIN NO. 8, FA TABLET PO SCH (17:47)
[2023-05-30] MEDS: LATANOPROST OPHT DROP 2.5 ML BOTTLE EACHEYE SCH (21:00)
[2023-05-31] VITALS (10 sets, daily range): TEMP 98.5–98.7; O2SAT 98–99
[2023-05-31] MEDS: IPRATROPIUM/ALBUTEROL SULFATE 3 ML AMPUL.NEB NEB SCH ×4 (00:33→19:15)
[2023-05-31] MEDS: LEVOTHYROXINE SODIUM 112 MCG TABLET PO SCH (05:12)
[2023-05-31] MEDS: BUDESONIDE 0.5 MG/2 ML NEBU NEB SCH ×2 (07:30→19:15)
[2023-05-31] MEDS: HYDROGEN PEROXIDE 3% 118 ML BOTTLE TP SCH ×2 (07:30→19:15)
[2023-05-31] MEDS: TOLTERODINE 1 MG TABLET PO SCH ×2 (09:31→16:14)
[2023-05-31] MEDS: FERROUS SULFATE 325 MG TABEC PO SCH (09:31)
[2023-05-31] MEDS: DORZOLAMIDE/TIMOLOL OPHT DROP 10 ML BOTTLE EACHEYE SCH ×2 (09:31→16:14)
[2023-05-31] MEDS: FOLIC ACID 1 MG TABLET PO SCH (09:32)
[2023-05-31] MEDS: levETIRAcetam 500 MG/5 ML LIQUID UDC PO SCH ×2 (09:32→16:16)
[2023-05-31] MEDS: REMEDY ESSENTIAL ZINC PASTE 113 GM TP SCH ×2 (09:33→21:45)
[2023-05-31] MEDS: MIRALAX 17 GM POWD.PACK PO SCH ×2 (09:33→16:20)
[2023-05-31] MEDS: VITAMINS A AND D OINT 42 GM TUBE TP SCH ×2 (09:33→21:45)
[2023-05-31] MEDS: GUAIFENESIN SUGAR FREE 100 MG/5 ML UDC PO PRN (16:22)
[2023-05-31] MEDS: BENZONATATE 100 MG CAPSULE PO PRN (16:22)
[2023-05-31] MEDS: MAGNESIUM OXIDE 400 MG TABLET PO SCH (17:52)
[2023-05-31] MEDS: MULTIVIT, IRON, MIN NO. 8, FA TABLET PO SCH (17:52)
[2023-05-31] MEDS: CHOLECALCIFEROL 1,000 UNIT TABLET PO SCH (17:52)
[2023-05-31] MEDS: ATORVASTATIN 20 MG TABLET PO SCH (17:52)
[2023-05-31] MEDS: ASPIRIN 81 MG TAB.CHEW PO SCH (17:52)
[2023-05-31] MEDS: OMEGA-3 FATTY ACIDS/FISH OIL CAPSULE PO SCH (17:52)
[2023-05-31] MEDS: LATANOPROST OPHT DROP 2.5 ML BOTTLE EACHEYE SCH (21:44)
[2023-06-01] VITALS (10 sets, daily range): TEMP 97.8; O2SAT 98–99
[2023-06-01] MEDS: IPRATROPIUM/ALBUTEROL SULFATE 3 ML AMPUL.NEB NEB SCH ×4 (00:34→19:14)
[2023-06-01] MEDS: LEVOTHYROXINE SODIUM 112 MCG TABLET PO SCH (05:04)
[2023-06-01] MEDS: BUDESONIDE 0.5 MG/2 ML NEBU NEB SCH ×2 (08:17→19:14)
[2023-06-01] MEDS: HYDROGEN PEROXIDE 3% 118 ML BOTTLE TP SCH ×2 (08:17→19:14)
[2023-06-01] MEDS: FERROUS SULFATE 325 MG TABEC PO SCH (09:07)
[2023-06-01] MEDS: DORZOLAMIDE/TIMOLOL OPHT DROP 10 ML BOTTLE EACHEYE SCH ×2 (09:07→17:00)
[2023-06-01] MEDS: levETIRAcetam 500 MG/5 ML LIQUID UDC PO SCH ×2 (09:07→17:00)
[2023-06-01] MEDS: FOLIC ACID 1 MG TABLET PO SCH (09:07)
[2023-06-01] MEDS: TOLTERODINE 1 MG TABLET PO SCH ×2 (09:07→17:00)
[2023-06-01] MEDS: VITAMINS A AND D OINT 42 GM TUBE TP SCH ×2 (09:07→21:39)
[2023-06-01] MEDS: MIRALAX 17 GM POWD.PACK PO SCH ×2 (09:07→17:00)
[2023-06-01] MEDS: REMEDY ESSENTIAL ZINC PASTE 113 GM TP SCH ×2 (09:07→21:38)
[2023-06-01] MEDS: ASPIRIN 81 MG TAB.CHEW PO SCH (17:00)
[2023-06-01] MEDS: GUAIFENESIN SUGAR FREE 100 MG/5 ML UDC PO PRN (17:01)
[2023-06-01] MEDS: OMEGA-3 FATTY ACIDS/FISH OIL CAPSULE PO SCH (17:01)
[2023-06-01] MEDS: MAGNESIUM OXIDE 400 MG TABLET PO SCH (17:01)
[2023-06-01] MEDS: ATORVASTATIN 20 MG TABLET PO SCH (17:01)
[2023-06-01] MEDS: BENZONATATE 100 MG CAPSULE PO PRN (17:01)
[2023-06-01] MEDS: CHOLECALCIFEROL 1,000 UNIT TABLET PO SCH (17:01)
[2023-06-01] MEDS: MULTIVIT, IRON, MIN NO. 8, FA TABLET PO SCH (17:01)
[2023-06-01] MEDS: LATANOPROST OPHT DROP 2.5 ML BOTTLE EACHEYE SCH (21:00)
[2023-06-02] VITALS (10 sets, daily range): TEMP 98.1–98.4; O2SAT 98–99
[2023-06-02] MEDS: IPRATROPIUM/ALBUTEROL SULFATE 3 ML AMPUL.NEB NEB SCH ×4 (00:31→19:41)
[2023-06-02] MEDS: LEVOTHYROXINE SODIUM 112 MCG TABLET PO SCH (06:00)
[2023-06-02] MEDS: BUDESONIDE 0.5 MG/2 ML NEBU NEB SCH ×2 (07:33→19:41)
[2023-06-02 07:34] LABS: BASOPHILS % (AUTO) 0.4 % (0.0-2.0); EOSINOPHILS # (AUTO) 0.1 K/uL (0.0-0.7); EOSINOPHILS % (AUTO) 2.8 % (0.0-7.0); HEMATOCRIT 31.9 % (31.2-41.9); HEMOGLOBIN 10.7 g/dL (10.9-14.3); LYMPHOCYTES # (AUTO) 1.2 K/uL (0.8-4.8); LYMPHOCYTES % (AUTO) 26.3 % (20.5-51.5); MEAN CORPUSCULAR HEMOGLOBIN 29.6 uug (24.7-32.8); MEAN CORPUSCULAR HGB CONC 34 g/dL (32.3-35.6); MEAN CORPUSCULAR VOLUME 88.2 fL (75.5-95.3); MONOCYTES # (AUTO) 0.5 K/uL (0.1-1.30); MONOCYTES % (AUTO) 11.5 % (0.0-11.0); NEUTROPHILS # (AUTO) 2.8 K/uL (1.8-8.9); PLATELET COUNT (AUTO) 203 K/uL (179-408); RED BLOOD CELL COUNT(AUTO) 3.62 MIL/uL (3.63-4.92); WHITE BLOOD COUNT (AUTO) 4.7 K/uL (3.8-11.8)
[2023-06-02 07:37] LABS: CALCIUM 8.3 mg/dL (8.5-10.1); CREATININE 0.6 mg/dL (0.6-1.3); MAGNESIUM 1.9 mg/dL (1.8-2.4); PHOSPHOROUS 4.3 mg/dL (2.5-4.9); POTASSIUM 4.7 mmol/L (3.5-5.1)
[2023-06-02 07:58] LABS: DIFFERENTIAL COMMENT 1
[2023-06-02] MEDS: HYDROGEN PEROXIDE 3% 118 ML BOTTLE TP SCH ×2 (08:07→20:53)
[2023-06-02] MEDS: DORZOLAMIDE/TIMOLOL OPHT DROP 10 ML BOTTLE EACHEYE SCH ×2 (09:19→17:45)
[2023-06-02] MEDS: TOLTERODINE 1 MG TABLET PO SCH ×2 (09:20→17:45)
[2023-06-02] MEDS: BENZONATATE 100 MG CAPSULE PO PRN ×2 (09:21→17:46)
[2023-06-02] MEDS: VITAMINS A AND D OINT 42 GM TUBE TP SCH ×2 (09:21→20:54)
[2023-06-02] MEDS: FERROUS SULFATE 325 MG TABEC PO SCH (09:21)
[2023-06-02] MEDS: FOLIC ACID 1 MG TABLET PO SCH (09:21)
[2023-06-02] MEDS: levETIRAcetam 500 MG/5 ML LIQUID UDC PO SCH ×2 (09:21→17:45)
[2023-06-02] MEDS: REMEDY ESSENTIAL ZINC PASTE 113 GM TP SCH ×2 (09:21→20:53)
[2023-06-02] MEDS: MIRALAX 17 GM POWD.PACK PO SCH ×2 (09:21→17:45)
[2023-06-02] MEDS: GUAIFENESIN SUGAR FREE 100 MG/5 ML UDC PO PRN ×2 (09:22→17:46)
[2023-06-02] MEDS: ASPIRIN 81 MG TAB.CHEW PO SCH (17:45)
[2023-06-02] MEDS: ATORVASTATIN 20 MG TABLET PO SCH (17:45)
[2023-06-02] MEDS: MULTIVIT, IRON, MIN NO. 8, FA TABLET PO SCH (17:45)
[2023-06-02] MEDS: CHOLECALCIFEROL 1,000 UNIT TABLET PO SCH (17:45)
[2023-06-02] MEDS: OMEGA-3 FATTY ACIDS/FISH OIL CAPSULE PO SCH (17:45)
[2023-06-02] MEDS: MAGNESIUM OXIDE 400 MG TABLET PO SCH (17:45)
[2023-06-02] MEDS: LATANOPROST OPHT DROP 2.5 ML BOTTLE EACHEYE SCH (20:53)
[2023-06-03] VITALS (9 sets, daily range): TEMP 98–98.1; O2SAT 98–99
[2023-06-03] MEDS: IPRATROPIUM/ALBUTEROL SULFATE 3 ML AMPUL.NEB NEB SCH ×4 (01:15→19:04)
[2023-06-03] MEDS: LEVOTHYROXINE SODIUM 112 MCG TABLET PO SCH (05:40)
[2023-06-03] MEDS: BUDESONIDE 0.5 MG/2 ML NEBU NEB SCH ×2 (07:27→19:04)
[2023-06-03] MEDS: HYDROGEN PEROXIDE 3% 118 ML BOTTLE TP SCH ×2 (08:07→19:04)
[2023-06-03] MEDS: TOLTERODINE 1 MG TABLET PO SCH ×2 (08:46→17:14)
[2023-06-03] MEDS: DORZOLAMIDE/TIMOLOL OPHT DROP 10 ML BOTTLE EACHEYE SCH ×2 (08:46→17:14)
[2023-06-03] MEDS: FOLIC ACID 1 MG TABLET PO SCH (08:46)
[2023-06-03] MEDS: FERROUS SULFATE 325 MG TABEC PO SCH (08:46)
[2023-06-03] MEDS: MIRALAX 17 GM POWD.PACK PO SCH ×2 (08:48→17:15)
[2023-06-03] MEDS: levETIRAcetam 500 MG/5 ML LIQUID UDC PO SCH ×2 (08:48→17:15)
[2023-06-03] MEDS: GUAIFENESIN SUGAR FREE 100 MG/5 ML UDC PO PRN ×2 (08:48→17:20)
[2023-06-03] MEDS: REMEDY ESSENTIAL ZINC PASTE 113 GM TP SCH ×2 (08:48→20:42)
[2023-06-03] MEDS: VITAMINS A AND D OINT 42 GM TUBE TP SCH ×2 (08:48→20:42)
[2023-06-03] MEDS: BENZONATATE 100 MG CAPSULE PO PRN ×2 (08:48→17:20)
[2023-06-03] MEDS: ASPIRIN 81 MG TAB.CHEW PO SCH (17:16)
[2023-06-03] MEDS: OMEGA-3 FATTY ACIDS/FISH OIL CAPSULE PO SCH (17:17)
[2023-06-03] MEDS: ATORVASTATIN 20 MG TABLET PO SCH (17:17)
[2023-06-03] MEDS: MULTIVIT, IRON, MIN NO. 8, FA TABLET PO SCH (17:18)
[2023-06-03] MEDS: CHOLECALCIFEROL 1,000 UNIT TABLET PO SCH (17:18)
[2023-06-03] MEDS: MAGNESIUM OXIDE 400 MG TABLET PO SCH (17:18)
[2023-06-03] MEDS: LATANOPROST OPHT DROP 2.5 ML BOTTLE EACHEYE SCH (20:42)
[2023-06-04] VITALS (10 sets, daily range): TEMP 98.1–98.4; O2SAT 98–99
[2023-06-04] MEDS: IPRATROPIUM/ALBUTEROL SULFATE 3 ML AMPUL.NEB NEB SCH ×4 (00:30→19:06)
[2023-06-04] MEDS: LEVOTHYROXINE SODIUM 112 MCG TABLET PO SCH (06:51)
[2023-06-04] MEDS: BUDESONIDE 0.5 MG/2 ML NEBU NEB SCH ×2 (07:56→19:06)
[2023-06-04] MEDS: HYDROGEN PEROXIDE 3% 118 ML BOTTLE TP SCH ×2 (08:08→19:06)
[2023-06-04] MEDS: VITAMINS A AND D OINT 42 GM TUBE TP SCH ×2 (09:00→20:11)
[2023-06-04] MEDS: DORZOLAMIDE/TIMOLOL OPHT DROP 10 ML BOTTLE EACHEYE SCH ×2 (09:13→17:00)
[2023-06-04] MEDS: FOLIC ACID 1 MG TABLET PO SCH (09:14)
[2023-06-04] MEDS: TOLTERODINE 1 MG TABLET PO SCH ×2 (09:14→17:00)
[2023-06-04] MEDS: FERROUS SULFATE 325 MG TABEC PO SCH (09:14)
[2023-06-04] MEDS: levETIRAcetam 500 MG/5 ML LIQUID UDC PO SCH ×2 (09:14→17:00)
[2023-06-04] MEDS: MIRALAX 17 GM POWD.PACK PO SCH ×2 (09:15→17:00)
[2023-06-04] MEDS: GUAIFENESIN SUGAR FREE 100 MG/5 ML UDC PO PRN ×2 (09:16→18:05)
[2023-06-04] MEDS: BENZONATATE 100 MG CAPSULE PO PRN ×2 (09:16→18:05)
[2023-06-04] MEDS: REMEDY ESSENTIAL ZINC PASTE 113 GM TP SCH ×2 (09:16→20:11)
[2023-06-04] MEDS: ASPIRIN 81 MG TAB.CHEW PO SCH (18:02)
[2023-06-04] MEDS: OMEGA-3 FATTY ACIDS/FISH OIL CAPSULE PO SCH (18:04)
[2023-06-04] MEDS: ATORVASTATIN 20 MG TABLET PO SCH (18:04)
[2023-06-04] MEDS: MAGNESIUM OXIDE 400 MG TABLET PO SCH (18:04)
[2023-06-04] MEDS: MULTIVIT, IRON, MIN NO. 8, FA TABLET PO SCH (18:05)
[2023-06-04] MEDS: CHOLECALCIFEROL 1,000 UNIT TABLET PO SCH (18:05)
[2023-06-04] MEDS: LATANOPROST OPHT DROP 2.5 ML BOTTLE EACHEYE SCH (20:11)
[2023-06-05] VITALS (10 sets, daily range): TEMP 97.9–98.3; O2SAT 98–99
[2023-06-05] MEDS: IPRATROPIUM/ALBUTEROL SULFATE 3 ML AMPUL.NEB NEB SCH ×4 (00:31→19:25)
[2023-06-05] MEDS: LEVOTHYROXINE SODIUM 112 MCG TABLET PO SCH (05:32)
[2023-06-05] MEDS: HYDROGEN PEROXIDE 3% 118 ML BOTTLE TP SCH ×2 (07:59→21:43)
[2023-06-05] MEDS: BUDESONIDE 0.5 MG/2 ML NEBU NEB SCH ×2 (07:59→19:25)
[2023-06-05] MEDS: VITAMINS A AND D OINT 42 GM TUBE TP SCH ×2 (09:00→21:03)
[2023-06-05] MEDS: REMEDY ESSENTIAL ZINC PASTE 113 GM TP SCH ×2 (09:00→21:03)
[2023-06-05] MEDS: DORZOLAMIDE/TIMOLOL OPHT DROP 10 ML BOTTLE EACHEYE SCH ×2 (09:18→17:46)
[2023-06-05] MEDS: TOLTERODINE 1 MG TABLET PO SCH ×2 (09:18→17:46)
[2023-06-05] MEDS: levETIRAcetam 500 MG/5 ML LIQUID UDC PO SCH ×2 (09:19→17:47)
[2023-06-05] MEDS: FOLIC ACID 1 MG TABLET PO SCH (09:19)
[2023-06-05] MEDS: FERROUS SULFATE 325 MG TABEC PO SCH (09:19)
[2023-06-05] MEDS: MIRALAX 17 GM POWD.PACK PO SCH ×2 (09:21→17:48)
[2023-06-05] MEDS: GUAIFENESIN SUGAR FREE 100 MG/5 ML UDC PO PRN ×2 (09:22→17:49)
[2023-06-05] MEDS: BENZONATATE 100 MG CAPSULE PO PRN ×2 (09:22→17:49)
[2023-06-05] MEDS: CHOLECALCIFEROL 1,000 UNIT TABLET PO SCH (17:48)
[2023-06-05] MEDS: ATORVASTATIN 20 MG TABLET PO SCH (17:48)
[2023-06-05] MEDS: OMEGA-3 FATTY ACIDS/FISH OIL CAPSULE PO SCH (17:48)
[2023-06-05] MEDS: MAGNESIUM OXIDE 400 MG TABLET PO SCH (17:48)
[2023-06-05] MEDS: MULTIVIT, IRON, MIN NO. 8, FA TABLET PO SCH (17:48)
[2023-06-05] MEDS: ASPIRIN 81 MG TAB.CHEW PO SCH (17:48)
[2023-06-05] MEDS: LATANOPROST OPHT DROP 2.5 ML BOTTLE EACHEYE SCH (21:03)
[2023-06-06] VITALS (10 sets, daily range): TEMP 97.3–98.7; O2SAT 97–99
[2023-06-06] MEDS: IPRATROPIUM/ALBUTEROL SULFATE 3 ML AMPUL.NEB NEB SCH ×4 (01:20→19:40)
[2023-06-06] MEDS: LEVOTHYROXINE SODIUM 112 MCG TABLET PO SCH (06:30)
[2023-06-06] MEDS: HYDROGEN PEROXIDE 3% 118 ML BOTTLE TP SCH ×2 (07:35→19:40)
[2023-06-06] MEDS: BUDESONIDE 0.5 MG/2 ML NEBU NEB SCH ×2 (07:35→19:40)
[2023-06-06] MEDS: DORZOLAMIDE/TIMOLOL OPHT DROP 10 ML BOTTLE EACHEYE SCH ×2 (09:49→17:51)
[2023-06-06] MEDS: TOLTERODINE 1 MG TABLET PO SCH ×2 (09:49→17:51)
[2023-06-06] MEDS: FERROUS SULFATE 325 MG TABEC PO SCH (09:50)
[2023-06-06] MEDS: FOLIC ACID 1 MG TABLET PO SCH (09:51)
[2023-06-06] MEDS: levETIRAcetam 500 MG/5 ML LIQUID UDC PO SCH ×2 (09:51→17:51)
[2023-06-06] MEDS: REMEDY ESSENTIAL ZINC PASTE 113 GM TP SCH ×2 (09:53→21:14)
[2023-06-06] MEDS: MIRALAX 17 GM POWD.PACK PO SCH ×2 (09:53→17:51)
[2023-06-06] MEDS: VITAMINS A AND D OINT 42 GM TUBE TP SCH ×2 (09:53→21:14)
[2023-06-06] MEDS: GUAIFENESIN SUGAR FREE 100 MG/5 ML UDC PO PRN (09:55)
[2023-06-06] MEDS: BENZONATATE 100 MG CAPSULE PO PRN (09:55)
[2023-06-06] MEDS: ASPIRIN 81 MG TAB.CHEW PO SCH (17:51)
[2023-06-06] MEDS: CHOLECALCIFEROL 1,000 UNIT TABLET PO SCH (17:51)
[2023-06-06] MEDS: OMEGA-3 FATTY ACIDS/FISH OIL CAPSULE PO SCH (17:51)
[2023-06-06] MEDS: ATORVASTATIN 20 MG TABLET PO SCH (17:51)
[2023-06-06] MEDS: MAGNESIUM OXIDE 400 MG TABLET PO SCH (17:51)
[2023-06-06] MEDS: MULTIVIT, IRON, MIN NO. 8, FA TABLET PO SCH (17:51)
[2023-06-06] MEDS: LATANOPROST OPHT DROP 2.5 ML BOTTLE EACHEYE SCH (21:14)
[2023-06-07] VITALS (10 sets, daily range): TEMP 97.9–98; O2SAT 98–99
[2023-06-07] MEDS: IPRATROPIUM/ALBUTEROL SULFATE 3 ML AMPUL.NEB NEB SCH ×4 (01:09→19:17)
[2023-06-07] MEDS: LEVOTHYROXINE SODIUM 112 MCG TABLET PO SCH (05:47)
[2023-06-07] MEDS: BUDESONIDE 0.5 MG/2 ML NEBU NEB SCH ×2 (07:44→19:17)
[2023-06-07] MEDS: HYDROGEN PEROXIDE 3% 118 ML BOTTLE TP SCH ×2 (08:13→19:17)
[2023-06-07] MEDS: DORZOLAMIDE/TIMOLOL OPHT DROP 10 ML BOTTLE EACHEYE SCH ×2 (09:04→17:23)
[2023-06-07] MEDS: TOLTERODINE 1 MG TABLET PO SCH ×2 (09:04→17:23)
[2023-06-07] MEDS: FOLIC ACID 1 MG TABLET PO SCH (09:05)
[2023-06-07] MEDS: FERROUS SULFATE 325 MG TABEC PO SCH (09:05)
[2023-06-07] MEDS: GUAIFENESIN SUGAR FREE 100 MG/5 ML UDC PO PRN (09:14)
[2023-06-07] MEDS: REMEDY ESSENTIAL ZINC PASTE 113 GM TP SCH ×2 (09:14→20:38)
[2023-06-07] MEDS: VITAMINS A AND D OINT 42 GM TUBE TP SCH ×2 (09:14→20:38)
[2023-06-07] MEDS: MIRALAX 17 GM POWD.PACK PO SCH ×2 (09:14→17:23)
[2023-06-07] MEDS: BENZONATATE 100 MG CAPSULE PO PRN (09:14)
[2023-06-07] MEDS: levETIRAcetam 500 MG/5 ML LIQUID UDC PO SCH ×2 (09:14→17:23)
[2023-06-07] MEDS: CHOLECALCIFEROL 1,000 UNIT TABLET PO SCH (17:23)
[2023-06-07] MEDS: MAGNESIUM OXIDE 400 MG TABLET PO SCH (17:23)
[2023-06-07] MEDS: OMEGA-3 FATTY ACIDS/FISH OIL CAPSULE PO SCH (17:23)
[2023-06-07] MEDS: ATORVASTATIN 20 MG TABLET PO SCH (17:23)
[2023-06-07] MEDS: MULTIVIT, IRON, MIN NO. 8, FA TABLET PO SCH (17:23)
[2023-06-07] MEDS: ASPIRIN 81 MG TAB.CHEW PO SCH (17:23)
[2023-06-07] MEDS: LATANOPROST OPHT DROP 2.5 ML BOTTLE EACHEYE SCH (20:38)
[2023-06-08] VITALS (10 sets, daily range): TEMP 97.8–98.3; O2SAT 98–99
[2023-06-08] MEDS: IPRATROPIUM/ALBUTEROL SULFATE 3 ML AMPUL.NEB NEB SCH ×4 (01:29→19:42)
[2023-06-08] MEDS: LEVOTHYROXINE SODIUM 112 MCG TABLET PO SCH (05:32)
[2023-06-08] MEDS: BUDESONIDE 0.5 MG/2 ML NEBU NEB SCH ×2 (07:52→19:42)
[2023-06-08] MEDS: HYDROGEN PEROXIDE 3% 118 ML BOTTLE TP SCH ×2 (08:33→19:42)
[2023-06-08] MEDS: DORZOLAMIDE/TIMOLOL OPHT DROP 10 ML BOTTLE EACHEYE SCH ×2 (09:13→17:09)
[2023-06-08] MEDS: FERROUS SULFATE 325 MG TABEC PO SCH (09:14)
[2023-06-08] MEDS: FOLIC ACID 1 MG TABLET PO SCH (09:14)
[2023-06-08] MEDS: TOLTERODINE 1 MG TABLET PO SCH ×2 (09:14→17:09)
[2023-06-08] MEDS: MIRALAX 17 GM POWD.PACK PO SCH ×2 (09:16→17:09)
[2023-06-08] MEDS: REMEDY ESSENTIAL ZINC PASTE 113 GM TP SCH ×2 (09:16→20:48)
[2023-06-08] MEDS: levETIRAcetam 500 MG/5 ML LIQUID UDC PO SCH ×2 (09:16→17:09)
[2023-06-08] MEDS: VITAMINS A AND D OINT 42 GM TUBE TP SCH ×2 (09:17→20:48)
[2023-06-08] MEDS: BENZONATATE 100 MG CAPSULE PO PRN ×2 (09:17→17:09)
[2023-06-08] MEDS: GUAIFENESIN SUGAR FREE 100 MG/5 ML UDC PO PRN ×2 (09:17→17:09)
[2023-06-08] MEDS: MULTIVIT, IRON, MIN NO. 8, FA TABLET PO SCH (17:09)
[2023-06-08] MEDS: ATORVASTATIN 20 MG TABLET PO SCH (17:09)
[2023-06-08] MEDS: MAGNESIUM OXIDE 400 MG TABLET PO SCH (17:09)
[2023-06-08] MEDS: OMEGA-3 FATTY ACIDS/FISH OIL CAPSULE PO SCH (17:09)
[2023-06-08] MEDS: ASPIRIN 81 MG TAB.CHEW PO SCH (17:09)
[2023-06-08] MEDS: CHOLECALCIFEROL 1,000 UNIT TABLET PO SCH (17:09)
[2023-06-08] MEDS: LATANOPROST OPHT DROP 2.5 ML BOTTLE EACHEYE SCH (20:48)
[2023-06-09] VITALS (10 sets, daily range): TEMP 97.5–98.3; O2SAT 98–99
[2023-06-09] MEDS: IPRATROPIUM/ALBUTEROL SULFATE 3 ML AMPUL.NEB NEB SCH ×4 (01:18→19:15)
[2023-06-09] MEDS: LEVOTHYROXINE SODIUM 112 MCG TABLET PO SCH (06:09)
[2023-06-09] MEDS: BUDESONIDE 0.5 MG/2 ML NEBU NEB SCH ×2 (07:19→19:15)
[2023-06-09] MEDS: HYDROGEN PEROXIDE 3% 118 ML BOTTLE TP SCH ×2 (07:20→20:49)
[2023-06-09] MEDS: DORZOLAMIDE/TIMOLOL OPHT DROP 10 ML BOTTLE EACHEYE SCH ×2 (08:46→17:00)
[2023-06-09] MEDS: TOLTERODINE 1 MG TABLET PO SCH ×2 (08:47→17:00)
[2023-06-09] MEDS: FOLIC ACID 1 MG TABLET PO SCH (08:47)
[2023-06-09] MEDS: FERROUS SULFATE 325 MG TABEC PO SCH (08:47)
[2023-06-09] MEDS: MIRALAX 17 GM POWD.PACK PO SCH ×2 (08:48→17:00)
[2023-06-09] MEDS: levETIRAcetam 500 MG/5 ML LIQUID UDC PO SCH ×2 (08:48→17:00)
[2023-06-09] MEDS: BENZONATATE 100 MG CAPSULE PO PRN (08:49)
[2023-06-09] MEDS: VITAMINS A AND D OINT 42 GM TUBE TP SCH ×2 (08:49→20:20)
[2023-06-09] MEDS: GUAIFENESIN SUGAR FREE 100 MG/5 ML UDC PO PRN (08:49)
[2023-06-09] MEDS: REMEDY ESSENTIAL ZINC PASTE 113 GM TP SCH ×2 (08:49→20:20)
[2023-06-09] MEDS: ASPIRIN 81 MG TAB.CHEW PO SCH (18:18)
[2023-06-09] MEDS: ATORVASTATIN 20 MG TABLET PO SCH (18:18)
[2023-06-09] MEDS: OMEGA-3 FATTY ACIDS/FISH OIL CAPSULE PO SCH (18:18)
[2023-06-09] MEDS: MAGNESIUM OXIDE 400 MG TABLET PO SCH (18:19)
[2023-06-09] MEDS: CHOLECALCIFEROL 1,000 UNIT TABLET PO SCH (18:19)
[2023-06-09] MEDS: MULTIVIT, IRON, MIN NO. 8, FA TABLET PO SCH (18:19)
[2023-06-09] MEDS: LATANOPROST OPHT DROP 2.5 ML BOTTLE EACHEYE SCH (20:20)
[2023-06-10] VITALS (10 sets, daily range): TEMP 97.7–97.8; O2SAT 98–99
[2023-06-10] MEDS: IPRATROPIUM/ALBUTEROL SULFATE 3 ML AMPUL.NEB NEB SCH ×4 (01:15→19:04)
[2023-06-10] MEDS: LEVOTHYROXINE SODIUM 112 MCG TABLET PO SCH (06:32)
[2023-06-10] MEDS: BUDESONIDE 0.5 MG/2 ML NEBU NEB SCH ×2 (07:31→19:05)
[2023-06-10] MEDS: HYDROGEN PEROXIDE 3% 118 ML BOTTLE TP SCH ×2 (07:31→19:04)
[2023-06-10] MEDS: DORZOLAMIDE/TIMOLOL OPHT DROP 10 ML BOTTLE EACHEYE SCH ×2 (08:40→17:08)
[2023-06-10] MEDS: FOLIC ACID 1 MG TABLET PO SCH (08:41)
[2023-06-10] MEDS: TOLTERODINE 1 MG TABLET PO SCH ×2 (08:41→17:08)
[2023-06-10] MEDS: levETIRAcetam 500 MG/5 ML LIQUID UDC PO SCH ×2 (08:41→17:08)
[2023-06-10] MEDS: FERROUS SULFATE 325 MG TABEC PO SCH (08:41)
[2023-06-10] MEDS: VITAMINS A AND D OINT 42 GM TUBE TP SCH ×2 (08:43→21:12)
[2023-06-10] MEDS: REMEDY ESSENTIAL ZINC PASTE 113 GM TP SCH ×2 (08:43→21:12)
[2023-06-10] MEDS: MIRALAX 17 GM POWD.PACK PO SCH ×2 (08:43→17:08)
[2023-06-10] MEDS: ASPIRIN 81 MG TAB.CHEW PO SCH (17:08)
[2023-06-10] MEDS: OMEGA-3 FATTY ACIDS/FISH OIL CAPSULE PO SCH (17:09)
[2023-06-10] MEDS: ATORVASTATIN 20 MG TABLET PO SCH (17:09)
[2023-06-10] MEDS: MAGNESIUM OXIDE 400 MG TABLET PO SCH (17:09)
[2023-06-10] MEDS: CHOLECALCIFEROL 1,000 UNIT TABLET PO SCH (17:09)
[2023-06-10] MEDS: MULTIVIT, IRON, MIN NO. 8, FA TABLET PO SCH (17:09)
[2023-06-10] MEDS: GUAIFENESIN SUGAR FREE 100 MG/5 ML UDC PO PRN (17:10)
[2023-06-10] MEDS: BENZONATATE 100 MG CAPSULE PO PRN (17:10)
[2023-06-10] MEDS: LATANOPROST OPHT DROP 2.5 ML BOTTLE EACHEYE SCH (21:12)
[2023-06-11] VITALS (10 sets, daily range): TEMP 97.6–98.5; O2SAT 98–99
[2023-06-11] MEDS: IPRATROPIUM/ALBUTEROL SULFATE 3 ML AMPUL.NEB NEB SCH ×4 (00:34→19:04)
[2023-06-11] MEDS: LEVOTHYROXINE SODIUM 112 MCG TABLET PO SCH (06:30)
[2023-06-11] MEDS: BUDESONIDE 0.5 MG/2 ML NEBU NEB SCH ×2 (07:06→19:04)
[2023-06-11] MEDS: HYDROGEN PEROXIDE 3% 118 ML BOTTLE TP SCH ×2 (07:06→19:06)
[2023-06-11] MEDS: FOLIC ACID 1 MG TABLET PO SCH (09:04)
[2023-06-11] MEDS: FERROUS SULFATE 325 MG TABEC PO SCH (09:04)
[2023-06-11] MEDS: levETIRAcetam 500 MG/5 ML LIQUID UDC PO SCH ×2 (09:04→17:02)
[2023-06-11] MEDS: TOLTERODINE 1 MG TABLET PO SCH ×2 (09:04→17:02)
[2023-06-11] MEDS: DORZOLAMIDE/TIMOLOL OPHT DROP 10 ML BOTTLE EACHEYE SCH ×2 (09:04→17:02)
[2023-06-11] MEDS: MIRALAX 17 GM POWD.PACK PO SCH ×2 (09:04→17:02)
[2023-06-11] MEDS: VITAMINS A AND D OINT 42 GM TUBE TP SCH ×2 (09:05→21:01)
[2023-06-11] MEDS: REMEDY ESSENTIAL ZINC PASTE 113 GM TP SCH ×2 (09:05→21:01)
[2023-06-11] MEDS: GUAIFENESIN SUGAR FREE 100 MG/5 ML UDC PO PRN (17:02)
[2023-06-11] MEDS: MULTIVIT, IRON, MIN NO. 8, FA TABLET PO SCH (17:02)
[2023-06-11] MEDS: OMEGA-3 FATTY ACIDS/FISH OIL CAPSULE PO SCH (17:02)
[2023-06-11] MEDS: ATORVASTATIN 20 MG TABLET PO SCH (17:02)
[2023-06-11] MEDS: ASPIRIN 81 MG TAB.CHEW PO SCH (17:02)
[2023-06-11] MEDS: BENZONATATE 100 MG CAPSULE PO PRN (17:02)
[2023-06-11] MEDS: CHOLECALCIFEROL 1,000 UNIT TABLET PO SCH (17:02)
[2023-06-11] MEDS: MAGNESIUM OXIDE 400 MG TABLET PO SCH (17:02)
[2023-06-11] MEDS: LATANOPROST OPHT DROP 2.5 ML BOTTLE EACHEYE SCH (21:01)
[2023-06-12] VITALS (10 sets, daily range): TEMP 97.5–98.3; O2SAT 98–99
[2023-06-12] MEDS: IPRATROPIUM/ALBUTEROL SULFATE 3 ML AMPUL.NEB NEB SCH ×4 (01:38→19:07)
[2023-06-12] MEDS: LEVOTHYROXINE SODIUM 112 MCG TABLET PO SCH (06:16)
[2023-06-12] MEDS: BUDESONIDE 0.5 MG/2 ML NEBU NEB SCH ×2 (07:02→19:07)
[2023-06-12] MEDS: DORZOLAMIDE/TIMOLOL OPHT DROP 10 ML BOTTLE EACHEYE SCH ×2 (08:40→17:14)
[2023-06-12] MEDS: BENZONATATE 100 MG CAPSULE PO PRN ×2 (08:41→17:17)
[2023-06-12] MEDS: MIRALAX 17 GM POWD.PACK PO SCH ×2 (08:41→17:15)
[2023-06-12] MEDS: levETIRAcetam 500 MG/5 ML LIQUID UDC PO SCH ×2 (08:41→17:15)
[2023-06-12] MEDS: VITAMINS A AND D OINT 42 GM TUBE TP SCH ×2 (08:41→20:55)
[2023-06-12] MEDS: TOLTERODINE 1 MG TABLET PO SCH ×2 (08:41→17:15)
[2023-06-12] MEDS: FOLIC ACID 1 MG TABLET PO SCH (08:41)
[2023-06-12] MEDS: REMEDY ESSENTIAL ZINC PASTE 113 GM TP SCH ×2 (08:41→20:55)
[2023-06-12] MEDS: GUAIFENESIN SUGAR FREE 100 MG/5 ML UDC PO PRN ×2 (08:41→17:17)
[2023-06-12] MEDS: FERROUS SULFATE 325 MG TABEC PO SCH (08:41)
[2023-06-12] MEDS: HYDROGEN PEROXIDE 3% 118 ML BOTTLE TP SCH ×2 (09:00→19:07)
[2023-06-12] MEDS: CHOLECALCIFEROL 1,000 UNIT TABLET PO SCH (17:15)
[2023-06-12] MEDS: OMEGA-3 FATTY ACIDS/FISH OIL CAPSULE PO SCH (17:15)
[2023-06-12] MEDS: MULTIVIT, IRON, MIN NO. 8, FA TABLET PO SCH (17:15)
[2023-06-12] MEDS: ASPIRIN 81 MG TAB.CHEW PO SCH (17:15)
[2023-06-12] MEDS: MAGNESIUM OXIDE 400 MG TABLET PO SCH (17:15)
[2023-06-12] MEDS: ATORVASTATIN 20 MG TABLET PO SCH (17:15)
[2023-06-12] MEDS: LATANOPROST OPHT DROP 2.5 ML BOTTLE EACHEYE SCH (20:55)
[2023-06-13] VITALS (10 sets, daily range): TEMP 97.6–98.2; O2SAT 97–99
[2023-06-13] MEDS: IPRATROPIUM/ALBUTEROL SULFATE 3 ML AMPUL.NEB NEB SCH ×4 (01:30→19:11)
[2023-06-13] MEDS: LEVOTHYROXINE SODIUM 112 MCG TABLET PO SCH (05:45)
[2023-06-13] MEDS: BUDESONIDE 0.5 MG/2 ML NEBU NEB SCH ×2 (07:15→19:11)
[2023-06-13] MEDS: HYDROGEN PEROXIDE 3% 118 ML BOTTLE TP SCH ×2 (07:16→19:11)
[2023-06-13] MEDS: TOLTERODINE 1 MG TABLET PO SCH ×2 (09:40→17:26)
[2023-06-13] MEDS: DORZOLAMIDE/TIMOLOL OPHT DROP 10 ML BOTTLE EACHEYE SCH ×2 (09:40→17:26)
[2023-06-13] MEDS: FERROUS SULFATE 325 MG TABEC PO SCH (09:40)
[2023-06-13] MEDS: MIRALAX 17 GM POWD.PACK PO SCH ×2 (09:41→17:27)
[2023-06-13] MEDS: FOLIC ACID 1 MG TABLET PO SCH (09:41)
[2023-06-13] MEDS: levETIRAcetam 500 MG/5 ML LIQUID UDC PO SCH ×2 (09:41→17:26)
[2023-06-13] MEDS: VITAMINS A AND D OINT 42 GM TUBE TP SCH ×2 (09:42→21:18)
[2023-06-13] MEDS: REMEDY ESSENTIAL ZINC PASTE 113 GM TP SCH ×2 (09:42→21:18)
[2023-06-13] MEDS: BENZONATATE 100 MG CAPSULE PO PRN ×2 (09:44→17:29)
[2023-06-13] MEDS: GUAIFENESIN SUGAR FREE 100 MG/5 ML UDC PO PRN ×2 (09:44→17:29)
[2023-06-13] MEDS: MAGNESIUM OXIDE 400 MG TABLET PO SCH (17:28)
[2023-06-13] MEDS: ATORVASTATIN 20 MG TABLET PO SCH (17:28)
[2023-06-13] MEDS: OMEGA-3 FATTY ACIDS/FISH OIL CAPSULE PO SCH (17:28)
[2023-06-13] MEDS: MULTIVIT, IRON, MIN NO. 8, FA TABLET PO SCH (17:28)
[2023-06-13] MEDS: ASPIRIN 81 MG TAB.CHEW PO SCH (17:28)
[2023-06-13] MEDS: CHOLECALCIFEROL 1,000 UNIT TABLET PO SCH (17:29)
[2023-06-13] MEDS: LATANOPROST OPHT DROP 2.5 ML BOTTLE EACHEYE SCH (21:17)
[2023-06-14] VITALS (10 sets, daily range): TEMP 98.5–98.8; O2SAT 97–99
[2023-06-14] MEDS: IPRATROPIUM/ALBUTEROL SULFATE 3 ML AMPUL.NEB NEB SCH ×4 (00:31→19:05)
[2023-06-14] MEDS: LEVOTHYROXINE SODIUM 112 MCG TABLET PO SCH (05:40)
[2023-06-14] MEDS: BUDESONIDE 0.5 MG/2 ML NEBU NEB SCH ×2 (07:30→19:05)
[2023-06-14] MEDS: HYDROGEN PEROXIDE 3% 118 ML BOTTLE TP SCH ×2 (09:00→19:05)
[2023-06-14] MEDS: TOLTERODINE 1 MG TABLET PO SCH ×2 (09:51→17:40)
[2023-06-14] MEDS: DORZOLAMIDE/TIMOLOL OPHT DROP 10 ML BOTTLE EACHEYE SCH ×2 (09:51→17:40)
[2023-06-14] MEDS: FERROUS SULFATE 325 MG TABEC PO SCH (09:51)
[2023-06-14] MEDS: levETIRAcetam 500 MG/5 ML LIQUID UDC PO SCH ×2 (09:51→17:40)
[2023-06-14] MEDS: MIRALAX 17 GM POWD.PACK PO SCH ×2 (09:51→17:40)
[2023-06-14] MEDS: FOLIC ACID 1 MG TABLET PO SCH (09:51)
[2023-06-14] MEDS: GUAIFENESIN SUGAR FREE 100 MG/5 ML UDC PO PRN ×2 (09:52→17:53)
[2023-06-14] MEDS: REMEDY ESSENTIAL ZINC PASTE 113 GM TP SCH ×2 (09:52→21:09)
[2023-06-14] MEDS: VITAMINS A AND D OINT 42 GM TUBE TP SCH ×2 (09:52→21:09)
[2023-06-14] MEDS: BENZONATATE 100 MG CAPSULE PO PRN ×2 (09:52→17:53)
[2023-06-14] MEDS: MAGNESIUM OXIDE 400 MG TABLET PO SCH (17:52)
[2023-06-14] MEDS: ATORVASTATIN 20 MG TABLET PO SCH (17:52)
[2023-06-14] MEDS: OMEGA-3 FATTY ACIDS/FISH OIL CAPSULE PO SCH (17:52)
[2023-06-14] MEDS: ASPIRIN 81 MG TAB.CHEW PO SCH (17:52)
[2023-06-14] MEDS: CHOLECALCIFEROL 1,000 UNIT TABLET PO SCH (17:53)
[2023-06-14] MEDS: MULTIVIT, IRON, MIN NO. 8, FA TABLET PO SCH (17:53)
[2023-06-14] MEDS: LATANOPROST OPHT DROP 2.5 ML BOTTLE EACHEYE SCH (21:09)
[2023-06-15] VITALS (10 sets, daily range): TEMP 98.1–98.6; O2SAT 97–99
[2023-06-15] MEDS: IPRATROPIUM/ALBUTEROL SULFATE 3 ML AMPUL.NEB NEB SCH ×4 (00:34→19:02)
[2023-06-15] MEDS: LEVOTHYROXINE SODIUM 112 MCG TABLET PO SCH (05:57)
[2023-06-15] MEDS: BUDESONIDE 0.5 MG/2 ML NEBU NEB SCH ×2 (07:30→19:02)
[2023-06-15] MEDS: HYDROGEN PEROXIDE 3% 118 ML BOTTLE TP SCH ×2 (08:10→19:02)
[2023-06-15] MEDS: DORZOLAMIDE/TIMOLOL OPHT DROP 10 ML BOTTLE EACHEYE SCH ×2 (09:11→17:02)
[2023-06-15] MEDS: TOLTERODINE 1 MG TABLET PO SCH ×2 (09:11→17:03)
[2023-06-15] MEDS: FOLIC ACID 1 MG TABLET PO SCH (09:12)
[2023-06-15] MEDS: FERROUS SULFATE 325 MG TABEC PO SCH (09:12)
[2023-06-15] MEDS: levETIRAcetam 500 MG/5 ML LIQUID UDC PO SCH ×2 (09:12→17:03)
[2023-06-15] MEDS: MIRALAX 17 GM POWD.PACK PO SCH ×2 (09:13→17:03)
[2023-06-15] MEDS: VITAMINS A AND D OINT 42 GM TUBE TP SCH ×2 (09:14→20:36)
[2023-06-15] MEDS: REMEDY ESSENTIAL ZINC PASTE 113 GM TP SCH ×2 (09:14→20:36)
[2023-06-15] MEDS: MAGNESIUM OXIDE 400 MG TABLET PO SCH (17:03)
[2023-06-15] MEDS: CHOLECALCIFEROL 1,000 UNIT TABLET PO SCH (17:03)
[2023-06-15] MEDS: ATORVASTATIN 20 MG TABLET PO SCH (17:03)
[2023-06-15] MEDS: OMEGA-3 FATTY ACIDS/FISH OIL CAPSULE PO SCH (17:03)
[2023-06-15] MEDS: MULTIVIT, IRON, MIN NO. 8, FA TABLET PO SCH (17:03)
[2023-06-15] MEDS: ASPIRIN 81 MG TAB.CHEW PO SCH (17:03)
[2023-06-15] MEDS: LATANOPROST OPHT DROP 2.5 ML BOTTLE EACHEYE SCH (20:36)
[2023-06-16] VITALS (10 sets, daily range): TEMP 98.5–98.7; O2SAT 97–99
[2023-06-16] MEDS: IPRATROPIUM/ALBUTEROL SULFATE 3 ML AMPUL.NEB NEB SCH ×4 (00:31→19:30)
[2023-06-16] MEDS: LEVOTHYROXINE SODIUM 112 MCG TABLET PO SCH (06:14)
[2023-06-16] MEDS: BUDESONIDE 0.5 MG/2 ML NEBU NEB SCH ×2 (07:14→19:30)
[2023-06-16] MEDS: HYDROGEN PEROXIDE 3% 118 ML BOTTLE TP SCH ×2 (07:14→21:50)
[2023-06-16] MEDS: FERROUS SULFATE 325 MG TABEC PO SCH (09:55)
[2023-06-16] MEDS: MIRALAX 17 GM POWD.PACK PO SCH ×2 (09:55→16:47)
[2023-06-16] MEDS: TOLTERODINE 1 MG TABLET PO SCH ×2 (09:55→16:47)
[2023-06-16] MEDS: levETIRAcetam 500 MG/5 ML LIQUID UDC PO SCH ×2 (09:55→16:47)
[2023-06-16] MEDS: FOLIC ACID 1 MG TABLET PO SCH (09:55)
[2023-06-16] MEDS: DORZOLAMIDE/TIMOLOL OPHT DROP 10 ML BOTTLE EACHEYE SCH ×2 (09:55→16:47)
[2023-06-16] MEDS: REMEDY ESSENTIAL ZINC PASTE 113 GM TP SCH ×2 (09:56→20:49)
[2023-06-16] MEDS: VITAMINS A AND D OINT 42 GM TUBE TP SCH ×2 (09:57→20:49)
[2023-06-16] MEDS: ATORVASTATIN 20 MG TABLET PO SCH (17:06)
[2023-06-16] MEDS: CHOLECALCIFEROL 1,000 UNIT TABLET PO SCH (17:06)
[2023-06-16] MEDS: MAGNESIUM OXIDE 400 MG TABLET PO SCH (17:06)
[2023-06-16] MEDS: OMEGA-3 FATTY ACIDS/FISH OIL CAPSULE PO SCH (17:06)
[2023-06-16] MEDS: MULTIVIT, IRON, MIN NO. 8, FA TABLET PO SCH (17:06)
[2023-06-16] MEDS: ASPIRIN 81 MG TAB.CHEW PO SCH (17:06)
[2023-06-16] MEDS: LATANOPROST OPHT DROP 2.5 ML BOTTLE EACHEYE SCH (20:49)
[2023-06-17] VITALS (10 sets, daily range): TEMP 97.4–98.9; O2SAT 97–99
[2023-06-17] MEDS: IPRATROPIUM/ALBUTEROL SULFATE 3 ML AMPUL.NEB NEB SCH ×4 (01:11→19:04)
[2023-06-17] MEDS: LEVOTHYROXINE SODIUM 112 MCG TABLET PO SCH (06:37)
[2023-06-17] MEDS: BUDESONIDE 0.5 MG/2 ML NEBU NEB SCH ×2 (07:30→19:04)
[2023-06-17] MEDS: HYDROGEN PEROXIDE 3% 118 ML BOTTLE TP SCH ×2 (07:33→19:04)
[2023-06-17] MEDS: MIRALAX 17 GM POWD.PACK PO SCH ×2 (09:45→16:59)
[2023-06-17] MEDS: DORZOLAMIDE/TIMOLOL OPHT DROP 10 ML BOTTLE EACHEYE SCH ×2 (09:45→16:59)
[2023-06-17] MEDS: FERROUS SULFATE 325 MG TABEC PO SCH (09:45)
[2023-06-17] MEDS: FOLIC ACID 1 MG TABLET PO SCH (09:45)
[2023-06-17] MEDS: TOLTERODINE 1 MG TABLET PO SCH ×2 (09:45→16:59)
[2023-06-17] MEDS: REMEDY ESSENTIAL ZINC PASTE 113 GM TP SCH ×2 (09:45→20:54)
[2023-06-17] MEDS: levETIRAcetam 500 MG/5 ML LIQUID UDC PO SCH ×2 (09:45→16:59)
[2023-06-17] MEDS: VITAMINS A AND D OINT 42 GM TUBE TP SCH ×2 (09:45→20:54)
[2023-06-17] MEDS: OMEGA-3 FATTY ACIDS/FISH OIL CAPSULE PO SCH (17:00)
[2023-06-17] MEDS: ATORVASTATIN 20 MG TABLET PO SCH (17:00)
[2023-06-17] MEDS: MULTIVIT, IRON, MIN NO. 8, FA TABLET PO SCH (17:00)
[2023-06-17] MEDS: ASPIRIN 81 MG TAB.CHEW PO SCH (17:00)
[2023-06-17] MEDS: MAGNESIUM OXIDE 400 MG TABLET PO SCH (17:00)
[2023-06-17] MEDS: CHOLECALCIFEROL 1,000 UNIT TABLET PO SCH (17:00)
[2023-06-17] MEDS: LATANOPROST OPHT DROP 2.5 ML BOTTLE EACHEYE SCH (20:53)
[2023-06-18] VITALS (10 sets, daily range): TEMP 98.6–98.8; O2SAT 98–99
[2023-06-18] MEDS: IPRATROPIUM/ALBUTEROL SULFATE 3 ML AMPUL.NEB NEB SCH ×4 (00:30→19:13)
[2023-06-18] MEDS: LEVOTHYROXINE SODIUM 112 MCG TABLET PO SCH (05:51)
[2023-06-18] MEDS: BUDESONIDE 0.5 MG/2 ML NEBU NEB SCH ×2 (07:30→19:13)
[2023-06-18] MEDS: HYDROGEN PEROXIDE 3% 118 ML BOTTLE TP SCH ×2 (07:30→19:14)
[2023-06-18] MEDS: TOLTERODINE 1 MG TABLET PO SCH ×2 (09:28→17:00)
[2023-06-18] MEDS: DORZOLAMIDE/TIMOLOL OPHT DROP 10 ML BOTTLE EACHEYE SCH ×2 (09:28→17:00)
[2023-06-18] MEDS: levETIRAcetam 500 MG/5 ML LIQUID UDC PO SCH ×2 (09:28→17:00)
[2023-06-18] MEDS: FOLIC ACID 1 MG TABLET PO SCH (09:28)
[2023-06-18] MEDS: FERROUS SULFATE 325 MG TABEC PO SCH (09:28)
[2023-06-18] MEDS: MIRALAX 17 GM POWD.PACK PO SCH ×2 (09:29→17:00)
[2023-06-18] MEDS: REMEDY ESSENTIAL ZINC PASTE 113 GM TP SCH ×2 (09:29→21:37)
[2023-06-18] MEDS: VITAMINS A AND D OINT 42 GM TUBE TP SCH ×2 (09:29→21:37)
[2023-06-18] MEDS: GUAIFENESIN SUGAR FREE 100 MG/5 ML UDC PO PRN ×2 (09:35→18:09)
[2023-06-18] MEDS: BENZONATATE 100 MG CAPSULE PO PRN ×2 (09:35→18:09)
[2023-06-18] MEDS: CHOLECALCIFEROL 1,000 UNIT TABLET PO SCH (18:09)
[2023-06-18] MEDS: MULTIVIT, IRON, MIN NO. 8, FA TABLET PO SCH (18:09)
[2023-06-18] MEDS: ASPIRIN 81 MG TAB.CHEW PO SCH (18:09)
[2023-06-18] MEDS: ATORVASTATIN 20 MG TABLET PO SCH (18:09)
[2023-06-18] MEDS: OMEGA-3 FATTY ACIDS/FISH OIL CAPSULE PO SCH (18:09)
[2023-06-18] MEDS: MAGNESIUM OXIDE 400 MG TABLET PO SCH (18:09)
[2023-06-18] MEDS: LATANOPROST OPHT DROP 2.5 ML BOTTLE EACHEYE SCH (21:37)
[2023-06-19] VITALS (10 sets, daily range): TEMP 97.2–98.6; O2SAT 98–99
[2023-06-19] MEDS: IPRATROPIUM/ALBUTEROL SULFATE 3 ML AMPUL.NEB NEB SCH ×4 (00:33→19:11)
[2023-06-19] MEDS: LEVOTHYROXINE SODIUM 112 MCG TABLET PO SCH (05:54)
[2023-06-19] MEDS: HYDROGEN PEROXIDE 3% 118 ML BOTTLE TP SCH ×2 (07:19→19:11)
[2023-06-19] MEDS: BUDESONIDE 0.5 MG/2 ML NEBU NEB SCH ×3 (07:19→19:30)
[2023-06-19] MEDS: DORZOLAMIDE/TIMOLOL OPHT DROP 10 ML BOTTLE EACHEYE SCH ×2 (09:29→17:00)
[2023-06-19] MEDS: levETIRAcetam 500 MG/5 ML LIQUID UDC PO SCH ×2 (09:29→17:00)
[2023-06-19] MEDS: TOLTERODINE 1 MG TABLET PO SCH ×2 (09:29→17:00)
[2023-06-19] MEDS: FOLIC ACID 1 MG TABLET PO SCH (09:29)
[2023-06-19] MEDS: FERROUS SULFATE 325 MG TABEC PO SCH (09:29)
[2023-06-19] MEDS: REMEDY ESSENTIAL ZINC PASTE 113 GM TP SCH ×2 (09:30→21:45)
[2023-06-19] MEDS: MIRALAX 17 GM POWD.PACK PO SCH ×2 (09:30→17:00)
[2023-06-19] MEDS: VITAMINS A AND D OINT 42 GM TUBE TP SCH ×2 (09:30→21:45)
[2023-06-19] MEDS: BENZONATATE 100 MG CAPSULE PO PRN (09:34)
[2023-06-19] MEDS: GUAIFENESIN SUGAR FREE 100 MG/5 ML UDC PO PRN (09:34)
[2023-06-19] MEDS: MULTIVIT, IRON, MIN NO. 8, FA TABLET PO SCH (18:05)
[2023-06-19] MEDS: ASPIRIN 81 MG TAB.CHEW PO SCH (18:05)
[2023-06-19] MEDS: MAGNESIUM OXIDE 400 MG TABLET PO SCH (18:05)
[2023-06-19] MEDS: OMEGA-3 FATTY ACIDS/FISH OIL CAPSULE PO SCH (18:05)
[2023-06-19] MEDS: ATORVASTATIN 20 MG TABLET PO SCH (18:05)
[2023-06-19] MEDS: CHOLECALCIFEROL 1,000 UNIT TABLET PO SCH (18:05)
[2023-06-19] MEDS: LATANOPROST OPHT DROP 2.5 ML BOTTLE EACHEYE SCH (21:45)
[2023-06-20] VITALS (9 sets, daily range): TEMP 97.8–97.9; O2SAT 98–99
[2023-06-20] MEDS: IPRATROPIUM/ALBUTEROL SULFATE 3 ML AMPUL.NEB NEB SCH ×4 (00:30→19:21)
[2023-06-20] MEDS: LEVOTHYROXINE SODIUM 112 MCG TABLET PO SCH (05:34)
[2023-06-20] MEDS: BUDESONIDE 0.5 MG/2 ML NEBU NEB SCH ×3 (07:30→19:37)
[2023-06-20] MEDS: VITAMINS A AND D OINT 42 GM TUBE TP SCH ×2 (09:00→20:18)
[2023-06-20] MEDS: HYDROGEN PEROXIDE 3% 118 ML BOTTLE TP SCH ×2 (09:00→19:21)
[2023-06-20] MEDS: levETIRAcetam 500 MG/5 ML LIQUID UDC PO SCH ×2 (09:00→17:00)
[2023-06-20] MEDS: TOLTERODINE 1 MG TABLET PO SCH ×2 (09:00→17:00)
[2023-06-20] MEDS: REMEDY ESSENTIAL ZINC PASTE 113 GM TP SCH ×2 (09:00→20:18)
[2023-06-20] MEDS: FOLIC ACID 1 MG TABLET PO SCH (09:00)
[2023-06-20] MEDS: MIRALAX 17 GM POWD.PACK PO SCH ×2 (09:00→17:00)
[2023-06-20] MEDS: FERROUS SULFATE 325 MG TABEC PO SCH (09:00)
[2023-06-20] MEDS: DORZOLAMIDE/TIMOLOL OPHT DROP 10 ML BOTTLE EACHEYE SCH ×2 (09:00→17:00)
[2023-06-20] MEDS: ASPIRIN 81 MG TAB.CHEW PO SCH (18:04)
[2023-06-20] MEDS: ATORVASTATIN 20 MG TABLET PO SCH (18:05)
[2023-06-20] MEDS: MAGNESIUM OXIDE 400 MG TABLET PO SCH (18:05)
[2023-06-20] MEDS: OMEGA-3 FATTY ACIDS/FISH OIL CAPSULE PO SCH (18:05)
[2023-06-20] MEDS: CHOLECALCIFEROL 1,000 UNIT TABLET PO SCH (18:05)
[2023-06-20] MEDS: MULTIVIT, IRON, MIN NO. 8, FA TABLET PO SCH (18:08)
[2023-06-20] MEDS: GUAIFENESIN SUGAR FREE 100 MG/5 ML UDC PO PRN (18:17)
[2023-06-20] MEDS: BENZONATATE 100 MG CAPSULE PO PRN (18:17)
[2023-06-20] MEDS: LATANOPROST OPHT DROP 2.5 ML BOTTLE EACHEYE SCH (20:21)
[2023-06-21] VITALS (11 sets, daily range): TEMP 98.5–98.8; O2SAT 98–99
[2023-06-21] MEDS: IPRATROPIUM/ALBUTEROL SULFATE 3 ML AMPUL.NEB NEB SCH ×4 (01:37→19:10)
[2023-06-21] MEDS: LEVOTHYROXINE SODIUM 112 MCG TABLET PO SCH (05:26)
[2023-06-21] MEDS: BUDESONIDE 0.5 MG/2 ML NEBU NEB SCH ×2 (07:41→19:10)
[2023-06-21] MEDS: TOLTERODINE 1 MG TABLET PO SCH ×2 (09:02→17:00)
[2023-06-21] MEDS: DORZOLAMIDE/TIMOLOL OPHT DROP 10 ML BOTTLE EACHEYE SCH ×2 (09:02→17:00)
[2023-06-21] MEDS: FERROUS SULFATE 325 MG TABEC PO SCH (09:02)
[2023-06-21] MEDS: FOLIC ACID 1 MG TABLET PO SCH (09:03)
[2023-06-21] MEDS: levETIRAcetam 500 MG/5 ML LIQUID UDC PO SCH ×2 (09:04→17:00)
[2023-06-21] MEDS: MIRALAX 17 GM POWD.PACK PO SCH ×2 (09:04→17:00)
[2023-06-21] MEDS: VITAMINS A AND D OINT 42 GM TUBE TP SCH ×2 (09:05→21:00)
[2023-06-21] MEDS: REMEDY ESSENTIAL ZINC PASTE 113 GM TP SCH ×2 (09:05→21:00)
[2023-06-21] MEDS: HYDROGEN PEROXIDE 3% 118 ML BOTTLE TP SCH ×2 (09:20→19:10)
[2023-06-21] MEDS: ASPIRIN 81 MG TAB.CHEW PO SCH (18:12)
[2023-06-21] MEDS: OMEGA-3 FATTY ACIDS/FISH OIL CAPSULE PO SCH (18:12)
[2023-06-21] MEDS: MAGNESIUM OXIDE 400 MG TABLET PO SCH (18:12)
[2023-06-21] MEDS: MULTIVIT, IRON, MIN NO. 8, FA TABLET PO SCH (18:12)
[2023-06-21] MEDS: ATORVASTATIN 20 MG TABLET PO SCH (18:12)
[2023-06-21] MEDS: CHOLECALCIFEROL 1,000 UNIT TABLET PO SCH (18:13)
[2023-06-21] MEDS: GUAIFENESIN SUGAR FREE 100 MG/5 ML UDC PO PRN (18:14)
[2023-06-21] MEDS: BENZONATATE 100 MG CAPSULE PO PRN (18:14)
[2023-06-21] MEDS: LATANOPROST OPHT DROP 2.5 ML BOTTLE EACHEYE SCH (21:00)
[2023-06-22] VITALS (10 sets, daily range): TEMP 98.7–99.2; O2SAT 99
[2023-06-22] MEDS: IPRATROPIUM/ALBUTEROL SULFATE 3 ML AMPUL.NEB NEB SCH ×4 (01:48→20:20)
[2023-06-22] MEDS: LEVOTHYROXINE SODIUM 112 MCG TABLET PO SCH (05:44)
[2023-06-22] MEDS: BUDESONIDE 0.5 MG/2 ML NEBU NEB SCH ×2 (07:16→20:20)
[2023-06-22] MEDS: HYDROGEN PEROXIDE 3% 118 ML BOTTLE TP SCH ×2 (08:42→20:20)
[2023-06-22] MEDS: FERROUS SULFATE 325 MG TABEC PO SCH (09:02)
[2023-06-22] MEDS: FOLIC ACID 1 MG TABLET PO SCH (09:02)
[2023-06-22] MEDS: levETIRAcetam 500 MG/5 ML LIQUID UDC PO SCH ×2 (09:02→16:36)
[2023-06-22] MEDS: TOLTERODINE 1 MG TABLET PO SCH ×2 (09:02→16:32)
[2023-06-22] MEDS: DORZOLAMIDE/TIMOLOL OPHT DROP 10 ML BOTTLE EACHEYE SCH ×2 (09:02→16:32)
[2023-06-22] MEDS: REMEDY ESSENTIAL ZINC PASTE 113 GM TP SCH ×2 (09:03→20:49)
[2023-06-22] MEDS: MIRALAX 17 GM POWD.PACK PO SCH ×2 (09:03→16:36)
[2023-06-22] MEDS: VITAMINS A AND D OINT 42 GM TUBE TP SCH ×2 (09:03→20:49)
[2023-06-22] MEDS: GUAIFENESIN SUGAR FREE 100 MG/5 ML UDC PO PRN ×2 (09:16→16:44)
[2023-06-22] MEDS: BENZONATATE 100 MG CAPSULE PO PRN ×2 (09:16→16:44)
[2023-06-22] MEDS: CHOLECALCIFEROL 1,000 UNIT TABLET PO SCH (18:07)
[2023-06-22] MEDS: MULTIVIT, IRON, MIN NO. 8, FA TABLET PO SCH (18:07)
[2023-06-22] MEDS: OMEGA-3 FATTY ACIDS/FISH OIL CAPSULE PO SCH (18:07)
[2023-06-22] MEDS: MAGNESIUM OXIDE 400 MG TABLET PO SCH (18:07)
[2023-06-22] MEDS: ATORVASTATIN 20 MG TABLET PO SCH (18:07)
[2023-06-22] MEDS: ASPIRIN 81 MG TAB.CHEW PO SCH (18:07)
[2023-06-22] MEDS: LATANOPROST OPHT DROP 2.5 ML BOTTLE EACHEYE SCH (20:49)
[2023-06-23] VITALS (10 sets, daily range): TEMP 98.8; O2SAT 99
[2023-06-23] MEDS: IPRATROPIUM/ALBUTEROL SULFATE 3 ML AMPUL.NEB NEB SCH ×4 (01:41→19:12)
[2023-06-23] MEDS: LEVOTHYROXINE SODIUM 112 MCG TABLET PO SCH (05:47)
[2023-06-23] MEDS: BUDESONIDE 0.5 MG/2 ML NEBU NEB SCH ×2 (07:43→19:12)
[2023-06-23] MEDS: HYDROGEN PEROXIDE 3% 118 ML BOTTLE TP SCH ×2 (07:44→19:12)
[2023-06-23] MEDS: VITAMINS A AND D OINT 42 GM TUBE TP SCH ×2 (09:24→21:52)
[2023-06-23] MEDS: REMEDY ESSENTIAL ZINC PASTE 113 GM TP SCH ×2 (09:24→21:52)
[2023-06-23] MEDS: levETIRAcetam 500 MG/5 ML LIQUID UDC PO SCH ×2 (09:24→17:07)
[2023-06-23] MEDS: MIRALAX 17 GM POWD.PACK PO SCH ×2 (09:24→17:07)
[2023-06-23] MEDS: DORZOLAMIDE/TIMOLOL OPHT DROP 10 ML BOTTLE EACHEYE SCH ×2 (09:24→17:07)
[2023-06-23] MEDS: FOLIC ACID 1 MG TABLET PO SCH (09:24)
[2023-06-23] MEDS: FERROUS SULFATE 325 MG TABEC PO SCH (09:24)
[2023-06-23] MEDS: TOLTERODINE 1 MG TABLET PO SCH ×2 (09:24→17:07)
[2023-06-23] MEDS: CHOLECALCIFEROL 1,000 UNIT TABLET PO SCH (17:07)
[2023-06-23] MEDS: MULTIVIT, IRON, MIN NO. 8, FA TABLET PO SCH (17:07)
[2023-06-23] MEDS: OMEGA-3 FATTY ACIDS/FISH OIL CAPSULE PO SCH (17:07)
[2023-06-23] MEDS: ASPIRIN 81 MG TAB.CHEW PO SCH (17:07)
[2023-06-23] MEDS: MAGNESIUM OXIDE 400 MG TABLET PO SCH (17:07)
[2023-06-23] MEDS: ATORVASTATIN 20 MG TABLET PO SCH (17:07)
[2023-06-23] MEDS: LATANOPROST OPHT DROP 2.5 ML BOTTLE EACHEYE SCH (21:54)
[2023-06-24] VITALS (11 sets, daily range): BP systolic 111; BP diastolic 60; TEMP 98.4–98.9; O2SAT 97–100
[2023-06-24] MEDS: IPRATROPIUM/ALBUTEROL SULFATE 3 ML AMPUL.NEB NEB SCH ×4 (02:11→19:22)
[2023-06-24] MEDS: LEVOTHYROXINE SODIUM 112 MCG TABLET PO SCH (06:16)
[2023-06-24] MEDS: HYDROGEN PEROXIDE 3% 118 ML BOTTLE TP SCH ×2 (07:48→19:22)
[2023-06-24] MEDS: BUDESONIDE 0.5 MG/2 ML NEBU NEB SCH ×2 (07:48→19:22)
[2023-06-24] MEDS: levETIRAcetam 500 MG/5 ML LIQUID UDC PO SCH ×2 (09:16→17:10)
[2023-06-24] MEDS: FERROUS SULFATE 325 MG TABEC PO SCH (09:16)
[2023-06-24] MEDS: TOLTERODINE 1 MG TABLET PO SCH ×2 (09:16→17:10)
[2023-06-24] MEDS: DORZOLAMIDE/TIMOLOL OPHT DROP 10 ML BOTTLE EACHEYE SCH ×2 (09:16→17:10)
[2023-06-24] MEDS: FOLIC ACID 1 MG TABLET PO SCH (09:16)
[2023-06-24] MEDS: MIRALAX 17 GM POWD.PACK PO SCH ×2 (09:18→17:12)
[2023-06-24] MEDS: REMEDY ESSENTIAL ZINC PASTE 113 GM TP SCH ×2 (09:18→20:51)
[2023-06-24] MEDS: VITAMINS A AND D OINT 42 GM TUBE TP SCH ×2 (09:18→20:51)
[2023-06-24] MEDS: GUAIFENESIN SUGAR FREE 100 MG/5 ML UDC PO PRN ×2 (09:44→17:15)
[2023-06-24] MEDS: BENZONATATE 100 MG CAPSULE PO PRN ×2 (09:44→17:15)
[2023-06-24] MEDS: ACETAMINOPHEN 325 MG TABLET-SA PATIENTS-PAIN ONLY PO PRN ×2 (09:44→17:16)
[2023-06-24] MEDS: ASPIRIN 81 MG TAB.CHEW PO SCH (17:12)
[2023-06-24] MEDS: OMEGA-3 FATTY ACIDS/FISH OIL CAPSULE PO SCH (17:12)
[2023-06-24] MEDS: MAGNESIUM OXIDE 400 MG TABLET PO SCH (17:13)
[2023-06-24] MEDS: ATORVASTATIN 20 MG TABLET PO SCH (17:13)
[2023-06-24] MEDS: MULTIVIT, IRON, MIN NO. 8, FA TABLET PO SCH (17:13)
[2023-06-24] MEDS: CHOLECALCIFEROL 1,000 UNIT TABLET PO SCH (17:14)
[2023-06-24] MEDS: LATANOPROST OPHT DROP 2.5 ML BOTTLE EACHEYE SCH (20:51)
[2023-06-25] VITALS (9 sets, daily range): TEMP 98.5–98.7; O2SAT 96–99
[2023-06-25] MEDS: IPRATROPIUM/ALBUTEROL SULFATE 3 ML AMPUL.NEB NEB SCH ×4 (00:57→19:04)
[2023-06-25] MEDS: LEVOTHYROXINE SODIUM 112 MCG TABLET PO SCH (06:32)
[2023-06-25] MEDS: BUDESONIDE 0.5 MG/2 ML NEBU NEB SCH ×2 (07:19→19:04)
[2023-06-25] MEDS: HYDROGEN PEROXIDE 3% 118 ML BOTTLE TP SCH ×2 (07:26→20:53)
[2023-06-25] MEDS: ACETAMINOPHEN 325 MG TABLET-SA PATIENTS-PAIN ONLY PO PRN ×2 (09:36→17:06)
[2023-06-25] MEDS: FOLIC ACID 1 MG TABLET PO SCH (09:37)
[2023-06-25] MEDS: REMEDY ESSENTIAL ZINC PASTE 113 GM TP SCH ×2 (09:37→21:10)
[2023-06-25] MEDS: GUAIFENESIN SUGAR FREE 100 MG/5 ML UDC PO PRN ×2 (09:37→17:03)
[2023-06-25] MEDS: BENZONATATE 100 MG CAPSULE PO PRN ×2 (09:37→17:03)
[2023-06-25] MEDS: levETIRAcetam 500 MG/5 ML LIQUID UDC PO SCH ×2 (09:37→16:56)
[2023-06-25] MEDS: FERROUS SULFATE 325 MG TABEC PO SCH (09:37)
[2023-06-25] MEDS: VITAMINS A AND D OINT 42 GM TUBE TP SCH ×2 (09:37→21:10)
[2023-06-25] MEDS: TOLTERODINE 1 MG TABLET PO SCH ×2 (09:37→16:56)
[2023-06-25] MEDS: DORZOLAMIDE/TIMOLOL OPHT DROP 10 ML BOTTLE EACHEYE SCH ×2 (09:37→16:56)
[2023-06-25] MEDS: MIRALAX 17 GM POWD.PACK PO SCH ×2 (09:37→16:57)
[2023-06-25] MEDS: ASPIRIN 81 MG TAB.CHEW PO SCH (18:11)
[2023-06-25] MEDS: MULTIVIT, IRON, MIN NO. 8, FA TABLET PO SCH (18:11)
[2023-06-25] MEDS: MAGNESIUM OXIDE 400 MG TABLET PO SCH (18:11)
[2023-06-25] MEDS: OMEGA-3 FATTY ACIDS/FISH OIL CAPSULE PO SCH (18:11)
[2023-06-25] MEDS: CHOLECALCIFEROL 1,000 UNIT TABLET PO SCH (18:11)
[2023-06-25] MEDS: ATORVASTATIN 20 MG TABLET PO SCH (18:11)
[2023-06-25] MEDS: LATANOPROST OPHT DROP 2.5 ML BOTTLE EACHEYE SCH (21:10)
[2023-06-26] VITALS (8 sets, daily range): TEMP 98.3; O2SAT 98–99
[2023-06-26] MEDS: IPRATROPIUM/ALBUTEROL SULFATE 3 ML AMPUL.NEB NEB SCH ×4 (01:09→19:30)
[2023-06-26] MEDS: LEVOTHYROXINE SODIUM 112 MCG TABLET PO SCH (05:50)
[2023-06-26] MEDS: BUDESONIDE 0.5 MG/2 ML NEBU NEB SCH ×2 (07:51→19:30)
[2023-06-26] MEDS: HYDROGEN PEROXIDE 3% 118 ML BOTTLE TP SCH ×2 (07:51→21:00)
[2023-06-26] MEDS: REMEDY ESSENTIAL ZINC PASTE 113 GM TP SCH ×2 (09:00→21:00)
[2023-06-26] MEDS: MIRALAX 17 GM POWD.PACK PO SCH ×2 (09:00→17:29)
[2023-06-26] MEDS: VITAMINS A AND D OINT 42 GM TUBE TP SCH ×2 (09:00→21:00)
[2023-06-26] MEDS: TOLTERODINE 1 MG TABLET PO SCH ×2 (09:00→17:22)
[2023-06-26] MEDS: FOLIC ACID 1 MG TABLET PO SCH (09:00)
[2023-06-26] MEDS: FERROUS SULFATE 325 MG TABEC PO SCH (09:00)
[2023-06-26] MEDS: DORZOLAMIDE/TIMOLOL OPHT DROP 10 ML BOTTLE EACHEYE SCH ×2 (09:00→17:22)
[2023-06-26] MEDS: levETIRAcetam 500 MG/5 ML LIQUID UDC PO SCH ×2 (09:00→17:23)
[2023-06-26] MEDS: GUAIFENESIN SUGAR FREE 100 MG/5 ML UDC PO PRN ×2 (10:12→17:35)
[2023-06-26] MEDS: BENZONATATE 100 MG CAPSULE PO PRN ×2 (10:12→17:36)
[2023-06-26] MEDS: ACETAMINOPHEN 325 MG TABLET-SA PATIENTS-PAIN ONLY PO PRN ×2 (10:23→17:43)
[2023-06-26] MEDS: ASPIRIN 81 MG TAB.CHEW PO SCH (17:32)
[2023-06-26] MEDS: OMEGA-3 FATTY ACIDS/FISH OIL CAPSULE PO SCH (17:32)
[2023-06-26] MEDS: ATORVASTATIN 20 MG TABLET PO SCH (17:33)
[2023-06-26] MEDS: MAGNESIUM OXIDE 400 MG TABLET PO SCH (17:34)
[2023-06-26] MEDS: MULTIVIT, IRON, MIN NO. 8, FA TABLET PO SCH (17:34)
[2023-06-26] MEDS: CHOLECALCIFEROL 1,000 UNIT TABLET PO SCH (17:34)
[2023-06-26] MEDS: LATANOPROST OPHT DROP 2.5 ML BOTTLE EACHEYE SCH (21:00)
[2023-06-27] VITALS (11 sets, daily range): TEMP 98.3–98.5; O2SAT 96–99
[2023-06-27] MEDS: IPRATROPIUM/ALBUTEROL SULFATE 3 ML AMPUL.NEB NEB SCH ×4 (01:01→21:34)
[2023-06-27] MEDS: LEVOTHYROXINE SODIUM 112 MCG TABLET PO SCH (06:25)
[2023-06-27] MEDS: BUDESONIDE 0.5 MG/2 ML NEBU NEB SCH ×2 (08:14→21:35)
[2023-06-27] MEDS: HYDROGEN PEROXIDE 3% 118 ML BOTTLE TP SCH ×2 (08:14→21:35)
[2023-06-27] MEDS: VITAMINS A AND D OINT 42 GM TUBE TP SCH ×2 (09:00→21:00)
[2023-06-27] MEDS: MIRALAX 17 GM POWD.PACK PO SCH ×2 (09:00→17:22)
[2023-06-27] MEDS: FOLIC ACID 1 MG TABLET PO SCH (09:00)
[2023-06-27] MEDS: REMEDY ESSENTIAL ZINC PASTE 113 GM TP SCH ×2 (09:00→21:00)
[2023-06-27] MEDS: TOLTERODINE 1 MG TABLET PO SCH ×2 (09:00→17:20)
[2023-06-27] MEDS: levETIRAcetam 500 MG/5 ML LIQUID UDC PO SCH ×2 (09:00→17:21)
[2023-06-27] MEDS: DORZOLAMIDE/TIMOLOL OPHT DROP 10 ML BOTTLE EACHEYE SCH ×2 (09:00→17:17)
[2023-06-27] MEDS: FERROUS SULFATE 325 MG TABEC PO SCH (09:00)
[2023-06-27] MEDS: BENZONATATE 100 MG CAPSULE PO PRN ×2 (10:05→17:20)
[2023-06-27] MEDS: GUAIFENESIN SUGAR FREE 100 MG/5 ML UDC PO PRN ×2 (10:06→17:20)
[2023-06-27] MEDS: ATORVASTATIN 20 MG TABLET PO SCH (17:20)
[2023-06-27] MEDS: OMEGA-3 FATTY ACIDS/FISH OIL CAPSULE PO SCH (17:23)
[2023-06-27] MEDS: ASPIRIN 81 MG TAB.CHEW PO SCH (17:23)
[2023-06-27] MEDS: MAGNESIUM OXIDE 400 MG TABLET PO SCH (17:24)
[2023-06-27] MEDS: MULTIVIT, IRON, MIN NO. 8, FA TABLET PO SCH (17:24)
[2023-06-27] MEDS: CHOLECALCIFEROL 1,000 UNIT TABLET PO SCH (17:25)
[2023-06-27] MEDS: LATANOPROST OPHT DROP 2.5 ML BOTTLE EACHEYE SCH (21:00)
[2023-06-28] VITALS (11 sets, daily range): TEMP 97.4–98.1; O2SAT 96–99
[2023-06-28] MEDS: IPRATROPIUM/ALBUTEROL SULFATE 3 ML AMPUL.NEB NEB SCH ×4 (01:20→20:20)
[2023-06-28] MEDS: LEVOTHYROXINE SODIUM 112 MCG TABLET PO SCH (06:52)
[2023-06-28] MEDS: BUDESONIDE 0.5 MG/2 ML NEBU NEB SCH ×2 (07:52→20:20)
[2023-06-28] MEDS: HYDROGEN PEROXIDE 3% 118 ML BOTTLE TP SCH ×2 (07:52→22:27)
[2023-06-28] MEDS: DORZOLAMIDE/TIMOLOL OPHT DROP 10 ML BOTTLE EACHEYE SCH ×2 (09:54→17:31)
[2023-06-28] MEDS: FOLIC ACID 1 MG TABLET PO SCH (09:57)
[2023-06-28] MEDS: levETIRAcetam 500 MG/5 ML LIQUID UDC PO SCH ×2 (09:57→17:31)
[2023-06-28] MEDS: FERROUS SULFATE 325 MG TABEC PO SCH (09:57)
[2023-06-28] MEDS: TOLTERODINE 1 MG TABLET PO SCH ×2 (09:57→17:31)
[2023-06-28] MEDS: MIRALAX 17 GM POWD.PACK PO SCH ×2 (09:59→17:33)
[2023-06-28] MEDS: REMEDY ESSENTIAL ZINC PASTE 113 GM TP SCH ×2 (09:59→21:41)
[2023-06-28] MEDS: VITAMINS A AND D OINT 42 GM TUBE TP SCH ×2 (09:59→21:41)
[2023-06-28] MEDS: OMEGA-3 FATTY ACIDS/FISH OIL CAPSULE PO SCH (17:33)
[2023-06-28] MEDS: ASPIRIN 81 MG TAB.CHEW PO SCH (17:33)
[2023-06-28] MEDS: MULTIVIT, IRON, MIN NO. 8, FA TABLET PO SCH (17:34)
[2023-06-28] MEDS: ATORVASTATIN 20 MG TABLET PO SCH (17:34)
[2023-06-28] MEDS: MAGNESIUM OXIDE 400 MG TABLET PO SCH (17:34)
[2023-06-28] MEDS: CHOLECALCIFEROL 1,000 UNIT TABLET PO SCH (17:34)
[2023-06-28] MEDS: BENZONATATE 100 MG CAPSULE PO PRN (17:35)
[2023-06-28] MEDS: GUAIFENESIN SUGAR FREE 100 MG/5 ML UDC PO PRN (17:35)
[2023-06-28] MEDS: LATANOPROST OPHT DROP 2.5 ML BOTTLE EACHEYE SCH (21:41)
[2023-06-29] VITALS (11 sets, daily range): TEMP 97.4–98; O2SAT 98–99
[2023-06-29] MEDS: IPRATROPIUM/ALBUTEROL SULFATE 3 ML AMPUL.NEB NEB SCH ×4 (02:11→20:02)
[2023-06-29] MEDS: LEVOTHYROXINE SODIUM 112 MCG TABLET PO SCH (06:31)
[2023-06-29] MEDS: BUDESONIDE 0.5 MG/2 ML NEBU NEB SCH ×2 (08:27→20:02)
[2023-06-29] MEDS: HYDROGEN PEROXIDE 3% 118 ML BOTTLE TP SCH ×2 (08:34→20:02)
[2023-06-29] MEDS: DORZOLAMIDE/TIMOLOL OPHT DROP 10 ML BOTTLE EACHEYE SCH ×2 (09:38→17:16)
[2023-06-29] MEDS: FOLIC ACID 1 MG TABLET PO SCH (09:39)
[2023-06-29] MEDS: levETIRAcetam 500 MG/5 ML LIQUID UDC PO SCH ×2 (09:39→17:16)
[2023-06-29] MEDS: TOLTERODINE 1 MG TABLET PO SCH ×2 (09:39→17:14)
[2023-06-29] MEDS: REMEDY ESSENTIAL ZINC PASTE 113 GM TP SCH ×2 (09:40→20:12)
[2023-06-29] MEDS: VITAMINS A AND D OINT 42 GM TUBE TP SCH ×2 (09:40→20:12)
[2023-06-29] MEDS: MIRALAX 17 GM POWD.PACK PO SCH ×2 (09:40→17:14)
[2023-06-29] MEDS: BENZONATATE 100 MG CAPSULE PO PRN ×2 (09:41→17:15)
[2023-06-29] MEDS: GUAIFENESIN SUGAR FREE 100 MG/5 ML UDC PO PRN ×2 (09:41→17:15)
[2023-06-29] MEDS: FERROUS SULFATE 325 MG TABEC PO SCH (09:43)
[2023-06-29] MEDS: CHOLECALCIFEROL 1,000 UNIT TABLET PO SCH (17:14)
[2023-06-29] MEDS: MAGNESIUM OXIDE 400 MG TABLET PO SCH (17:14)
[2023-06-29] MEDS: ASPIRIN 81 MG TAB.CHEW PO SCH (17:14)
[2023-06-29] MEDS: MULTIVIT, IRON, MIN NO. 8, FA TABLET PO SCH (17:14)
[2023-06-29] MEDS: OMEGA-3 FATTY ACIDS/FISH OIL CAPSULE PO SCH (17:14)
[2023-06-29] MEDS: ATORVASTATIN 20 MG TABLET PO SCH (17:14)
[2023-06-29] MEDS: LATANOPROST OPHT DROP 2.5 ML BOTTLE EACHEYE SCH (20:12)
[2023-06-30] VITALS (9 sets, daily range): TEMP 97.4–98.5; O2SAT 97–99
[2023-06-30] MEDS: IPRATROPIUM/ALBUTEROL SULFATE 3 ML AMPUL.NEB NEB SCH ×4 (00:34→19:04)
[2023-06-30] MEDS: LEVOTHYROXINE SODIUM 112 MCG TABLET PO SCH (06:24)
[2023-06-30] MEDS: BUDESONIDE 0.5 MG/2 ML NEBU NEB SCH ×2 (07:21→23:19)
[2023-06-30] MEDS: HYDROGEN PEROXIDE 3% 118 ML BOTTLE TP SCH ×2 (07:21→23:19)
[2023-06-30] MEDS: FOLIC ACID 1 MG TABLET PO SCH (09:35)
[2023-06-30] MEDS: TOLTERODINE 1 MG TABLET PO SCH ×2 (09:35→17:09)
[2023-06-30] MEDS: FERROUS SULFATE 325 MG TABEC PO SCH (09:36)
[2023-06-30] MEDS: levETIRAcetam 500 MG/5 ML LIQUID UDC PO SCH ×2 (09:37→17:17)
[2023-06-30] MEDS: MIRALAX 17 GM POWD.PACK PO SCH ×2 (09:37→17:21)
[2023-06-30] MEDS: VITAMINS A AND D OINT 42 GM TUBE TP SCH ×2 (09:39→21:47)
[2023-06-30] MEDS: REMEDY ESSENTIAL ZINC PASTE 113 GM TP SCH ×2 (09:39→21:47)
[2023-06-30] MEDS: GUAIFENESIN SUGAR FREE 100 MG/5 ML UDC PO PRN ×2 (09:40→17:23)
[2023-06-30] MEDS: BENZONATATE 100 MG CAPSULE PO PRN ×2 (09:40→17:23)
[2023-06-30] MEDS: DORZOLAMIDE/TIMOLOL OPHT DROP 10 ML BOTTLE EACHEYE SCH ×2 (09:47→17:00)
[2023-06-30] MEDS: OMEGA-3 FATTY ACIDS/FISH OIL CAPSULE PO SCH (17:21)
[2023-06-30] MEDS: ASPIRIN 81 MG TAB.CHEW PO SCH (17:21)
[2023-06-30] MEDS: ATORVASTATIN 20 MG TABLET PO SCH (17:22)
[2023-06-30] MEDS: CHOLECALCIFEROL 1,000 UNIT TABLET PO SCH (17:23)
[2023-06-30] MEDS: MULTIVIT, IRON, MIN NO. 8, FA TABLET PO SCH (17:23)
[2023-06-30] MEDS: MAGNESIUM OXIDE 400 MG TABLET PO SCH (17:23)
[2023-06-30] MEDS: LATANOPROST OPHT DROP 2.5 ML BOTTLE EACHEYE SCH (21:47)
[2023-07-01] VITALS (10 sets, daily range): TEMP 97.9–98.4; O2SAT 96–99
[2023-07-01] MEDS: IPRATROPIUM/ALBUTEROL SULFATE 3 ML AMPUL.NEB NEB SCH ×4 (01:37→19:40)
[2023-07-01] MEDS: LEVOTHYROXINE SODIUM 112 MCG TABLET PO SCH (06:11)
[2023-07-01] MEDS: HYDROGEN PEROXIDE 3% 118 ML BOTTLE TP SCH ×2 (07:26→20:38)
[2023-07-01] MEDS: BUDESONIDE 0.5 MG/2 ML NEBU NEB SCH ×2 (07:26→19:40)
[2023-07-01] MEDS: FERROUS SULFATE 325 MG TABEC PO SCH (09:35)
[2023-07-01] MEDS: DORZOLAMIDE/TIMOLOL OPHT DROP 10 ML BOTTLE EACHEYE SCH ×2 (09:35→16:29)
[2023-07-01] MEDS: TOLTERODINE 1 MG TABLET PO SCH ×2 (09:35→16:30)
[2023-07-01] MEDS: levETIRAcetam 500 MG/5 ML LIQUID UDC PO SCH ×2 (09:36→16:31)
[2023-07-01] MEDS: FOLIC ACID 1 MG TABLET PO SCH (09:36)
[2023-07-01] MEDS: VITAMINS A AND D OINT 42 GM TUBE TP SCH ×2 (09:40→20:19)
[2023-07-01] MEDS: REMEDY ESSENTIAL ZINC PASTE 113 GM TP SCH ×2 (09:40→20:19)
[2023-07-01] MEDS: MIRALAX 17 GM POWD.PACK PO SCH ×2 (09:40→16:32)
[2023-07-01] MEDS: BENZONATATE 100 MG CAPSULE PO PRN (09:48)
[2023-07-01] MEDS: GUAIFENESIN SUGAR FREE 100 MG/5 ML UDC PO PRN (16:33)
[2023-07-01] MEDS: MAGNESIUM OXIDE 400 MG TABLET PO SCH (17:13)
[2023-07-01] MEDS: OMEGA-3 FATTY ACIDS/FISH OIL CAPSULE PO SCH (17:13)
[2023-07-01] MEDS: MULTIVIT, IRON, MIN NO. 8, FA TABLET PO SCH (17:13)
[2023-07-01] MEDS: CHOLECALCIFEROL 1,000 UNIT TABLET PO SCH (17:13)
[2023-07-01] MEDS: ASPIRIN 81 MG TAB.CHEW PO SCH (17:13)
[2023-07-01] MEDS: ATORVASTATIN 20 MG TABLET PO SCH (17:13)
[2023-07-01] MEDS: LATANOPROST OPHT DROP 2.5 ML BOTTLE EACHEYE SCH (20:19)
[2023-07-02] VITALS (10 sets, daily range): TEMP 98.4–98.8; O2SAT 97–99
[2023-07-02] MEDS: IPRATROPIUM/ALBUTEROL SULFATE 3 ML AMPUL.NEB NEB SCH ×4 (00:30→19:10)
[2023-07-02] MEDS: LEVOTHYROXINE SODIUM 112 MCG TABLET PO SCH (06:18)
[2023-07-02] MEDS: BUDESONIDE 0.5 MG/2 ML NEBU NEB SCH ×2 (07:21→19:10)
[2023-07-02] MEDS: HYDROGEN PEROXIDE 3% 118 ML BOTTLE TP SCH ×2 (07:44→19:10)
[2023-07-02] MEDS: FERROUS SULFATE 325 MG TABEC PO SCH (09:49)
[2023-07-02] MEDS: FOLIC ACID 1 MG TABLET PO SCH (09:49)
[2023-07-02] MEDS: DORZOLAMIDE/TIMOLOL OPHT DROP 10 ML BOTTLE EACHEYE SCH ×2 (09:49→16:41)
[2023-07-02] MEDS: levETIRAcetam 500 MG/5 ML LIQUID UDC PO SCH ×2 (09:49→16:41)
[2023-07-02] MEDS: TOLTERODINE 1 MG TABLET PO SCH ×2 (09:49→16:41)
[2023-07-02] MEDS: MIRALAX 17 GM POWD.PACK PO SCH ×2 (09:49→16:41)
[2023-07-02] MEDS: VITAMINS A AND D OINT 42 GM TUBE TP SCH ×2 (09:50→21:42)
[2023-07-02] MEDS: REMEDY ESSENTIAL ZINC PASTE 113 GM TP SCH ×2 (09:50→21:42)
[2023-07-02] MEDS: GUAIFENESIN SUGAR FREE 100 MG/5 ML UDC PO PRN (16:44)
[2023-07-02] MEDS: ATORVASTATIN 20 MG TABLET PO SCH (17:41)
[2023-07-02] MEDS: MAGNESIUM OXIDE 400 MG TABLET PO SCH (17:41)
[2023-07-02] MEDS: OMEGA-3 FATTY ACIDS/FISH OIL CAPSULE PO SCH (17:41)
[2023-07-02] MEDS: CHOLECALCIFEROL 1,000 UNIT TABLET PO SCH (17:41)
[2023-07-02] MEDS: MULTIVIT, IRON, MIN NO. 8, FA TABLET PO SCH (17:41)
[2023-07-02] MEDS: ASPIRIN 81 MG TAB.CHEW PO SCH (17:41)
[2023-07-02] MEDS: BENZONATATE 100 MG CAPSULE PO PRN (17:42)
[2023-07-02] MEDS: LATANOPROST OPHT DROP 2.5 ML BOTTLE EACHEYE SCH (21:42)
[2023-07-03] VITALS (10 sets, daily range): TEMP 97.9; O2SAT 97–99
[2023-07-03] MEDS: IPRATROPIUM/ALBUTEROL SULFATE 3 ML AMPUL.NEB NEB SCH ×4 (00:33→19:19)
[2023-07-03] MEDS: LEVOTHYROXINE SODIUM 112 MCG TABLET PO SCH (06:33)
[2023-07-03] MEDS: HYDROGEN PEROXIDE 3% 118 ML BOTTLE TP SCH ×2 (07:48→19:19)
[2023-07-03] MEDS: BUDESONIDE 0.5 MG/2 ML NEBU NEB SCH ×2 (07:48→19:19)
[2023-07-03] MEDS: REMEDY ESSENTIAL ZINC PASTE 113 GM TP SCH ×2 (09:00→21:16)
[2023-07-03] MEDS: DORZOLAMIDE/TIMOLOL OPHT DROP 10 ML BOTTLE EACHEYE SCH ×2 (09:00→17:42)
[2023-07-03] MEDS: levETIRAcetam 500 MG/5 ML LIQUID UDC PO SCH ×2 (09:00→17:42)
[2023-07-03] MEDS: FOLIC ACID 1 MG TABLET PO SCH (09:00)
[2023-07-03] MEDS: MIRALAX 17 GM POWD.PACK PO SCH ×2 (09:00→17:42)
[2023-07-03] MEDS: TOLTERODINE 1 MG TABLET PO SCH ×2 (09:00→17:42)
[2023-07-03] MEDS: VITAMINS A AND D OINT 42 GM TUBE TP SCH ×2 (09:00→21:16)
[2023-07-03] MEDS: FERROUS SULFATE 325 MG TABEC PO SCH (09:00)
[2023-07-03] MEDS: MAGNESIUM OXIDE 400 MG TABLET PO SCH (17:42)
[2023-07-03] MEDS: ASPIRIN 81 MG TAB.CHEW PO SCH (17:42)
[2023-07-03] MEDS: OMEGA-3 FATTY ACIDS/FISH OIL CAPSULE PO SCH (17:42)
[2023-07-03] MEDS: ATORVASTATIN 20 MG TABLET PO SCH (17:42)
[2023-07-03] MEDS: MULTIVIT, IRON, MIN NO. 8, FA TABLET PO SCH (17:43)
[2023-07-03] MEDS: CHOLECALCIFEROL 1,000 UNIT TABLET PO SCH (17:43)
[2023-07-03] MEDS: LATANOPROST OPHT DROP 2.5 ML BOTTLE EACHEYE SCH (21:16)
[2023-07-04] VITALS (10 sets, daily range): TEMP 97.6–98.1; O2SAT 97–99
[2023-07-04] MEDS: IPRATROPIUM/ALBUTEROL SULFATE 3 ML AMPUL.NEB NEB SCH ×4 (00:31→19:20)
[2023-07-04] MEDS: LEVOTHYROXINE SODIUM 112 MCG TABLET PO SCH (06:03)
[2023-07-04] MEDS: BUDESONIDE 0.5 MG/2 ML NEBU NEB SCH ×2 (07:45→19:20)
[2023-07-04] MEDS: HYDROGEN PEROXIDE 3% 118 ML BOTTLE TP SCH ×2 (07:46→21:02)
[2023-07-04] MEDS: TOLTERODINE 1 MG TABLET PO SCH ×2 (09:08→17:19)
[2023-07-04] MEDS: FERROUS SULFATE 325 MG TABEC PO SCH (09:08)
[2023-07-04] MEDS: DORZOLAMIDE/TIMOLOL OPHT DROP 10 ML BOTTLE EACHEYE SCH ×2 (09:08→17:19)
[2023-07-04] MEDS: FOLIC ACID 1 MG TABLET PO SCH (09:09)
[2023-07-04] MEDS: MIRALAX 17 GM POWD.PACK PO SCH ×2 (09:10→17:19)
[2023-07-04] MEDS: VITAMINS A AND D OINT 42 GM TUBE TP SCH ×2 (09:10→20:41)
[2023-07-04] MEDS: levETIRAcetam 500 MG/5 ML LIQUID UDC PO SCH ×2 (09:10→17:19)
[2023-07-04] MEDS: REMEDY ESSENTIAL ZINC PASTE 113 GM TP SCH ×2 (09:10→20:41)
[2023-07-04] MEDS: ASPIRIN 81 MG TAB.CHEW PO SCH (17:19)
[2023-07-04] MEDS: MAGNESIUM OXIDE 400 MG TABLET PO SCH (17:19)
[2023-07-04] MEDS: ATORVASTATIN 20 MG TABLET PO SCH (17:19)
[2023-07-04] MEDS: MULTIVIT, IRON, MIN NO. 8, FA TABLET PO SCH (17:19)
[2023-07-04] MEDS: OMEGA-3 FATTY ACIDS/FISH OIL CAPSULE PO SCH (17:19)
[2023-07-04] MEDS: CHOLECALCIFEROL 1,000 UNIT TABLET PO SCH (17:19)
[2023-07-04] MEDS: GUAIFENESIN SUGAR FREE 100 MG/5 ML UDC PO PRN (18:00)
[2023-07-04] MEDS: BENZONATATE 100 MG CAPSULE PO PRN (18:00)
[2023-07-04] MEDS: LATANOPROST OPHT DROP 2.5 ML BOTTLE EACHEYE SCH (20:41)
[2023-07-05] VITALS (10 sets, daily range): TEMP 97.9–98; O2SAT 97–99
[2023-07-05] MEDS: IPRATROPIUM/ALBUTEROL SULFATE 3 ML AMPUL.NEB NEB SCH ×4 (01:14→19:20)
[2023-07-05] MEDS: LEVOTHYROXINE SODIUM 112 MCG TABLET PO SCH (05:43)
[2023-07-05] MEDS: BUDESONIDE 0.5 MG/2 ML NEBU NEB SCH ×2 (07:09→19:20)
[2023-07-05] MEDS: HYDROGEN PEROXIDE 3% 118 ML BOTTLE TP SCH ×2 (08:53→19:20)
[2023-07-05] MEDS: REMEDY ESSENTIAL ZINC PASTE 113 GM TP SCH ×2 (09:00→21:28)
[2023-07-05] MEDS: FERROUS SULFATE 325 MG TABEC PO SCH (09:00)
[2023-07-05] MEDS: levETIRAcetam 500 MG/5 ML LIQUID UDC PO SCH ×2 (09:00→17:22)
[2023-07-05] MEDS: TOLTERODINE 1 MG TABLET PO SCH ×2 (09:00→17:22)
[2023-07-05] MEDS: FOLIC ACID 1 MG TABLET PO SCH (09:00)
[2023-07-05] MEDS: VITAMINS A AND D OINT 42 GM TUBE TP SCH ×2 (09:00→21:28)
[2023-07-05] MEDS: DORZOLAMIDE/TIMOLOL OPHT DROP 10 ML BOTTLE EACHEYE SCH ×2 (09:00→17:20)
[2023-07-05] MEDS: MIRALAX 17 GM POWD.PACK PO SCH ×2 (09:00→17:23)
[2023-07-05] MEDS: BENZONATATE 100 MG CAPSULE PO PRN ×2 (10:10→17:26)
[2023-07-05] MEDS: GUAIFENESIN SUGAR FREE 100 MG/5 ML UDC PO PRN ×2 (10:10→17:26)
[2023-07-05] MEDS: ASPIRIN 81 MG TAB.CHEW PO SCH (17:24)
[2023-07-05] MEDS: OMEGA-3 FATTY ACIDS/FISH OIL CAPSULE PO SCH (17:24)
[2023-07-05] MEDS: ATORVASTATIN 20 MG TABLET PO SCH (17:24)
[2023-07-05] MEDS: MAGNESIUM OXIDE 400 MG TABLET PO SCH (17:25)
[2023-07-05] MEDS: MULTIVIT, IRON, MIN NO. 8, FA TABLET PO SCH (17:25)
[2023-07-05] MEDS: CHOLECALCIFEROL 1,000 UNIT TABLET PO SCH (17:25)
[2023-07-05] MEDS: LATANOPROST OPHT DROP 2.5 ML BOTTLE EACHEYE SCH (21:28)
[2023-07-06] VITALS (9 sets, daily range): TEMP 98.6; O2SAT 98–99
[2023-07-06] MEDS: IPRATROPIUM/ALBUTEROL SULFATE 3 ML AMPUL.NEB NEB SCH ×4 (00:30→19:11)
[2023-07-06] MEDS: LEVOTHYROXINE SODIUM 112 MCG TABLET PO SCH (05:55)
[2023-07-06] MEDS: BUDESONIDE 0.5 MG/2 ML NEBU NEB SCH ×2 (07:23→19:11)
[2023-07-06] MEDS: HYDROGEN PEROXIDE 3% 118 ML BOTTLE TP SCH ×2 (08:56→19:22)
[2023-07-06] MEDS: DORZOLAMIDE/TIMOLOL OPHT DROP 10 ML BOTTLE EACHEYE SCH ×2 (09:45→17:39)
[2023-07-06] MEDS: TOLTERODINE 1 MG TABLET PO SCH ×2 (09:45→17:40)
[2023-07-06] MEDS: FOLIC ACID 1 MG TABLET PO SCH (09:46)
[2023-07-06] MEDS: FERROUS SULFATE 325 MG TABEC PO SCH (09:46)
[2023-07-06] MEDS: MIRALAX 17 GM POWD.PACK PO SCH ×2 (09:47→17:41)
[2023-07-06] MEDS: levETIRAcetam 500 MG/5 ML LIQUID UDC PO SCH ×2 (09:47→17:40)
[2023-07-06] MEDS: REMEDY ESSENTIAL ZINC PASTE 113 GM TP SCH ×2 (09:48→20:29)
[2023-07-06] MEDS: VITAMINS A AND D 5 GM UD PKT TP SCH ×2 (09:48→20:29)
[2023-07-06] MEDS: GUAIFENESIN SUGAR FREE 100 MG/5 ML UDC PO PRN ×2 (09:48→17:44)
[2023-07-06] MEDS: BENZONATATE 100 MG CAPSULE PO PRN ×2 (09:49→17:44)
[2023-07-06] MEDS: ASPIRIN 81 MG TAB.CHEW PO SCH (17:41)
[2023-07-06] MEDS: OMEGA-3 FATTY ACIDS/FISH OIL CAPSULE PO SCH (17:41)
[2023-07-06] MEDS: ATORVASTATIN 20 MG TABLET PO SCH (17:42)
[2023-07-06] MEDS: MAGNESIUM OXIDE 400 MG TABLET PO SCH (17:42)
[2023-07-06] MEDS: CHOLECALCIFEROL 1,000 UNIT TABLET PO SCH (17:43)
[2023-07-06] MEDS: MULTIVIT, IRON, MIN NO. 8, FA TABLET PO SCH (17:43)
[2023-07-06] MEDS: LATANOPROST OPHT DROP 2.5 ML BOTTLE EACHEYE SCH (20:29)
[2023-07-07] VITALS (10 sets, daily range): TEMP 98–98.1; O2SAT 98–99
[2023-07-07] MEDS: IPRATROPIUM/ALBUTEROL SULFATE 3 ML AMPUL.NEB NEB SCH ×4 (01:20→19:18)
[2023-07-07] MEDS: LEVOTHYROXINE SODIUM 112 MCG TABLET PO SCH (05:46)
[2023-07-07 06:41] LABS: BASOPHILS % (AUTO) 0.8 % (0.0-2.0); EOSINOPHILS # (AUTO) 0.1 K/uL (0.0-0.7); EOSINOPHILS % (AUTO) 2.8 % (0.0-7.0); LYMPHOCYTES # (AUTO) 1.3 K/uL (0.8-4.8); MEAN CORPUSCULAR HEMOGLOBIN 29.3 uug (24.7-32.8); MEAN CORPUSCULAR HGB CONC 33 g/dL (32.3-35.6); MEAN CORPUSCULAR VOLUME 88.1 fL (75.5-95.3); MONOCYTES # (AUTO) 0.7 K/uL (0.1-1.30); MONOCYTES % (AUTO) 12.5 % (0.0-11.0); NEUTROPHILS # (AUTO) 3.1 K/uL (1.8-8.9); NEUTROPHILS % (AUTO) 58.9 % (38.5-71.5); PLATELET COUNT (AUTO) 227 K/uL (179-408); RED BLOOD CELL COUNT(AUTO) 3.75 MIL/uL (3.63-4.92); RED CELL DISTRIBUTION WIDTH 14.9 % (12.3-17.7); WHITE BLOOD COUNT (AUTO) 5.2 K/uL (3.8-11.8)
[2023-07-07 06:50] LABS: DIFFERENTIAL COMMENT 1
[2023-07-07 07:04] LABS: CALCIUM 8.5 mg/dL (8.5-10.1); CARBON DIOXIDE 35 mmol/L (21-32); CHLORIDE 98 mmol/L (98-107); CREATININE 0.7 mg/dL (0.6-1.3); GLUCOSE 103 mg/dL (74-106); MAGNESIUM 1.9 mg/dL (1.8-2.4); PHOSPHOROUS 4.3 mg/dL (2.5-4.9); POTASSIUM 4.4 mmol/L (3.5-5.1); SODIUM SERUM 135 mmol/L (136-145); UREA NITROGEN, BLOOD 12 mg/dL (7-18)
[2023-07-07] MEDS: HYDROGEN PEROXIDE 3% 118 ML BOTTLE TP SCH ×2 (08:06→21:33)
[2023-07-07] MEDS: BUDESONIDE 0.5 MG/2 ML NEBU NEB SCH ×2 (08:06→19:18)
[2023-07-07] MEDS: FERROUS SULFATE 325 MG TABEC PO SCH (09:37)
[2023-07-07] MEDS: TOLTERODINE 1 MG TABLET PO SCH ×2 (09:37→16:57)
[2023-07-07] MEDS: DORZOLAMIDE/TIMOLOL OPHT DROP 10 ML BOTTLE EACHEYE SCH ×2 (09:37→16:57)
[2023-07-07] MEDS: FOLIC ACID 1 MG TABLET PO SCH (09:38)
[2023-07-07] MEDS: levETIRAcetam 500 MG/5 ML LIQUID UDC PO SCH ×2 (09:38→16:59)
[2023-07-07] MEDS: MIRALAX 17 GM POWD.PACK PO SCH ×2 (09:39→17:05)
[2023-07-07] MEDS: BENZONATATE 100 MG CAPSULE PO PRN ×2 (09:41→17:10)
[2023-07-07] MEDS: VITAMINS A AND D 5 GM UD PKT TP SCH ×2 (09:41→20:28)
[2023-07-07] MEDS: REMEDY ESSENTIAL ZINC PASTE 113 GM TP SCH ×2 (09:41→20:28)
[2023-07-07] MEDS: GUAIFENESIN SUGAR FREE 100 MG/5 ML UDC PO PRN ×2 (09:42→17:10)
[2023-07-07] MEDS: ATORVASTATIN 20 MG TABLET PO SCH (17:05)
[2023-07-07] MEDS: ASPIRIN 81 MG TAB.CHEW PO SCH (17:05)
[2023-07-07] MEDS: OMEGA-3 FATTY ACIDS/FISH OIL CAPSULE PO SCH (17:05)
[2023-07-07] MEDS: CHOLECALCIFEROL 1,000 UNIT TABLET PO SCH (17:07)
[2023-07-07] MEDS: MULTIVIT, IRON, MIN NO. 8, FA TABLET PO SCH (17:07)
[2023-07-07] MEDS: MAGNESIUM OXIDE 400 MG TABLET PO SCH (17:07)
[2023-07-07] MEDS: LATANOPROST OPHT DROP 2.5 ML BOTTLE EACHEYE SCH (20:28)
[2023-07-08] VITALS (11 sets, daily range): TEMP 97.6–97.9; O2SAT 97–99
[2023-07-08] MEDS: IPRATROPIUM/ALBUTEROL SULFATE 3 ML AMPUL.NEB NEB SCH ×4 (01:47→19:03)
[2023-07-08] MEDS: LEVOTHYROXINE SODIUM 112 MCG TABLET PO SCH (05:58)
[2023-07-08] MEDS: BUDESONIDE 0.5 MG/2 ML NEBU NEB SCH ×2 (08:13→19:03)
[2023-07-08] MEDS: HYDROGEN PEROXIDE 3% 118 ML BOTTLE TP SCH ×2 (08:13→19:03)
[2023-07-08] MEDS: DORZOLAMIDE/TIMOLOL OPHT DROP 10 ML BOTTLE EACHEYE SCH ×2 (09:02→17:42)
[2023-07-08] MEDS: TOLTERODINE 1 MG TABLET PO SCH ×2 (09:03→17:42)
[2023-07-08] MEDS: FOLIC ACID 1 MG TABLET PO SCH (09:03)
[2023-07-08] MEDS: FERROUS SULFATE 325 MG TABEC PO SCH (09:03)
[2023-07-08] MEDS: levETIRAcetam 500 MG/5 ML LIQUID UDC PO SCH ×2 (09:05→17:43)
[2023-07-08] MEDS: MIRALAX 17 GM POWD.PACK PO SCH ×2 (09:06→17:44)
[2023-07-08] MEDS: REMEDY ESSENTIAL ZINC PASTE 113 GM TP SCH ×2 (09:07→21:22)
[2023-07-08] MEDS: VITAMINS A AND D 5 GM UD PKT TP SCH ×2 (09:07→21:22)
[2023-07-08] MEDS: GUAIFENESIN SUGAR FREE 100 MG/5 ML UDC PO PRN ×2 (09:09→17:49)
[2023-07-08] MEDS: ATORVASTATIN 20 MG TABLET PO SCH (17:43)
[2023-07-08] MEDS: MAGNESIUM OXIDE 400 MG TABLET PO SCH (17:45)
[2023-07-08] MEDS: ASPIRIN 81 MG TAB.CHEW PO SCH (17:45)
[2023-07-08] MEDS: OMEGA-3 FATTY ACIDS/FISH OIL CAPSULE PO SCH (17:45)
[2023-07-08] MEDS: MULTIVIT, IRON, MIN NO. 8, FA TABLET PO SCH (17:46)
[2023-07-08] MEDS: BENZONATATE 100 MG CAPSULE PO PRN (17:48)
[2023-07-08] MEDS: CHOLECALCIFEROL 1,000 UNIT TABLET PO SCH (17:48)
[2023-07-08] MEDS: LATANOPROST OPHT DROP 2.5 ML BOTTLE EACHEYE SCH (21:22)
[2023-07-09] VITALS (11 sets, daily range): TEMP 97.9–98.4; O2SAT 99
[2023-07-09] MEDS: IPRATROPIUM/ALBUTEROL SULFATE 3 ML AMPUL.NEB NEB SCH ×4 (01:16→19:03)
[2023-07-09] MEDS: LEVOTHYROXINE SODIUM 112 MCG TABLET PO SCH (05:47)
[2023-07-09] MEDS: HYDROGEN PEROXIDE 3% 118 ML BOTTLE TP SCH ×2 (07:25→20:42)
[2023-07-09] MEDS: BUDESONIDE 0.5 MG/2 ML NEBU NEB SCH ×2 (07:25→19:03)
[2023-07-09] MEDS: DORZOLAMIDE/TIMOLOL OPHT DROP 10 ML BOTTLE EACHEYE SCH ×2 (08:49→16:28)
[2023-07-09] MEDS: FERROUS SULFATE 325 MG TABEC PO SCH (08:49)
[2023-07-09] MEDS: TOLTERODINE 1 MG TABLET PO SCH ×2 (08:49→16:31)
[2023-07-09] MEDS: levETIRAcetam 500 MG/5 ML LIQUID UDC PO SCH ×2 (08:50→16:33)
[2023-07-09] MEDS: FOLIC ACID 1 MG TABLET PO SCH (08:50)
[2023-07-09] MEDS: REMEDY ESSENTIAL ZINC PASTE 113 GM TP SCH ×2 (08:51→21:15)
[2023-07-09] MEDS: VITAMINS A AND D 5 GM UD PKT TP SCH ×2 (08:51→21:15)
[2023-07-09] MEDS: MIRALAX 17 GM POWD.PACK PO SCH ×2 (08:51→16:34)
[2023-07-09] MEDS: ATORVASTATIN 20 MG TABLET PO SCH (17:10)
[2023-07-09] MEDS: BENZONATATE 100 MG CAPSULE PO PRN (17:10)
[2023-07-09] MEDS: CHOLECALCIFEROL 1,000 UNIT TABLET PO SCH (17:10)
[2023-07-09] MEDS: MULTIVIT, IRON, MIN NO. 8, FA TABLET PO SCH (17:10)
[2023-07-09] MEDS: GUAIFENESIN SUGAR FREE 100 MG/5 ML UDC PO PRN (17:10)
[2023-07-09] MEDS: MAGNESIUM OXIDE 400 MG TABLET PO SCH (17:10)
[2023-07-09] MEDS: ASPIRIN 81 MG TAB.CHEW PO SCH (17:10)
[2023-07-09] MEDS: OMEGA-3 FATTY ACIDS/FISH OIL CAPSULE PO SCH (17:10)
[2023-07-09] MEDS: LATANOPROST OPHT DROP 2.5 ML BOTTLE EACHEYE SCH (21:15)
[2023-07-10] VITALS (10 sets, daily range): TEMP 97.4–98.4; O2SAT 98–99
[2023-07-10] MEDS: IPRATROPIUM/ALBUTEROL SULFATE 3 ML AMPUL.NEB NEB SCH ×4 (01:30→19:05)
[2023-07-10] MEDS: LEVOTHYROXINE SODIUM 112 MCG TABLET PO SCH (05:59)
[2023-07-10] MEDS: BUDESONIDE 0.5 MG/2 ML NEBU NEB SCH ×2 (07:30→19:05)
[2023-07-10] MEDS: HYDROGEN PEROXIDE 3% 118 ML BOTTLE TP SCH ×2 (08:37→21:04)
[2023-07-10] MEDS: DORZOLAMIDE/TIMOLOL OPHT DROP 10 ML BOTTLE EACHEYE SCH ×2 (09:41→17:40)
[2023-07-10] MEDS: TOLTERODINE 1 MG TABLET PO SCH ×2 (09:41→17:40)
[2023-07-10] MEDS: FOLIC ACID 1 MG TABLET PO SCH (09:42)
[2023-07-10] MEDS: levETIRAcetam 500 MG/5 ML LIQUID UDC PO SCH ×2 (09:43→17:40)
[2023-07-10] MEDS: MIRALAX 17 GM POWD.PACK PO SCH ×2 (09:43→17:41)
[2023-07-10] MEDS: FERROUS SULFATE 325 MG TABEC PO SCH (09:43)
[2023-07-10] MEDS: REMEDY ESSENTIAL ZINC PASTE 113 GM TP SCH ×2 (09:45→21:42)
[2023-07-10] MEDS: BENZONATATE 100 MG CAPSULE PO PRN ×2 (09:45→17:45)
[2023-07-10] MEDS: VITAMINS A AND D 5 GM UD PKT TP SCH ×2 (09:45→21:42)
[2023-07-10] MEDS: GUAIFENESIN SUGAR FREE 100 MG/5 ML UDC PO PRN ×2 (09:46→17:46)
[2023-07-10] MEDS: ASPIRIN 81 MG TAB.CHEW PO SCH (17:42)
[2023-07-10] MEDS: OMEGA-3 FATTY ACIDS/FISH OIL CAPSULE PO SCH (17:43)
[2023-07-10] MEDS: MAGNESIUM OXIDE 400 MG TABLET PO SCH (17:43)
[2023-07-10] MEDS: ATORVASTATIN 20 MG TABLET PO SCH (17:43)
[2023-07-10] MEDS: CHOLECALCIFEROL 1,000 UNIT TABLET PO SCH (17:44)
[2023-07-10] MEDS: MULTIVIT, IRON, MIN NO. 8, FA TABLET PO SCH (17:44)
[2023-07-10] MEDS: LATANOPROST OPHT DROP 2.5 ML BOTTLE EACHEYE SCH (21:42)
[2023-07-11] VITALS (10 sets, daily range): TEMP 97.8–98.3; O2SAT 98–99
[2023-07-11] MEDS: IPRATROPIUM/ALBUTEROL SULFATE 3 ML AMPUL.NEB NEB SCH ×4 (01:01→19:18)
[2023-07-11] MEDS: LEVOTHYROXINE SODIUM 112 MCG TABLET PO SCH (06:42)
[2023-07-11] MEDS: BUDESONIDE 0.5 MG/2 ML NEBU NEB SCH ×2 (07:29→19:18)
[2023-07-11] MEDS: HYDROGEN PEROXIDE 3% 118 ML BOTTLE TP SCH ×2 (07:29→19:18)
[2023-07-11] MEDS: DORZOLAMIDE/TIMOLOL OPHT DROP 10 ML BOTTLE EACHEYE SCH ×2 (08:49→17:27)
[2023-07-11] MEDS: FERROUS SULFATE 325 MG TABEC PO SCH (08:50)
[2023-07-11] MEDS: FOLIC ACID 1 MG TABLET PO SCH (08:50)
[2023-07-11] MEDS: TOLTERODINE 1 MG TABLET PO SCH ×2 (08:50→17:27)
[2023-07-11] MEDS: MIRALAX 17 GM POWD.PACK PO SCH ×2 (08:51→17:27)
[2023-07-11] MEDS: levETIRAcetam 500 MG/5 ML LIQUID UDC PO SCH ×2 (08:51→17:27)
[2023-07-11] MEDS: REMEDY ESSENTIAL ZINC PASTE 113 GM TP SCH ×2 (08:52→21:59)
[2023-07-11] MEDS: VITAMINS A AND D 5 GM UD PKT TP SCH ×2 (08:53→21:59)
[2023-07-11] MEDS: OMEGA-3 FATTY ACIDS/FISH OIL CAPSULE PO SCH (17:27)
[2023-07-11] MEDS: ATORVASTATIN 20 MG TABLET PO SCH (17:27)
[2023-07-11] MEDS: ASPIRIN 81 MG TAB.CHEW PO SCH (17:27)
[2023-07-11] MEDS: GUAIFENESIN SUGAR FREE 100 MG/5 ML UDC PO PRN (17:28)
[2023-07-11] MEDS: CHOLECALCIFEROL 1,000 UNIT TABLET PO SCH (17:28)
[2023-07-11] MEDS: MULTIVIT, IRON, MIN NO. 8, FA TABLET PO SCH (17:28)
[2023-07-11] MEDS: MAGNESIUM OXIDE 400 MG TABLET PO SCH (17:28)
[2023-07-11] MEDS: BENZONATATE 100 MG CAPSULE PO PRN (17:28)
[2023-07-11] MEDS: LATANOPROST OPHT DROP 2.5 ML BOTTLE EACHEYE SCH (21:59)
[2023-07-12] VITALS (10 sets, daily range): TEMP 98–98.5; O2SAT 98–99
[2023-07-12] MEDS: IPRATROPIUM/ALBUTEROL SULFATE 3 ML AMPUL.NEB NEB SCH ×4 (00:30→19:13)
[2023-07-12] MEDS: LEVOTHYROXINE SODIUM 112 MCG TABLET PO SCH (05:52)
[2023-07-12] MEDS: BUDESONIDE 0.5 MG/2 ML NEBU NEB SCH ×2 (07:12→19:13)
[2023-07-12] MEDS: HYDROGEN PEROXIDE 3% 118 ML BOTTLE TP SCH ×2 (07:13→19:13)
[2023-07-12] MEDS: DORZOLAMIDE/TIMOLOL OPHT DROP 10 ML BOTTLE EACHEYE SCH ×2 (09:28→17:05)
[2023-07-12] MEDS: TOLTERODINE 1 MG TABLET PO SCH ×2 (09:30→17:05)
[2023-07-12] MEDS: FOLIC ACID 1 MG TABLET PO SCH (09:30)
[2023-07-12] MEDS: levETIRAcetam 500 MG/5 ML LIQUID UDC PO SCH ×2 (09:30→17:05)
[2023-07-12] MEDS: FERROUS SULFATE 325 MG TABEC PO SCH (09:30)
[2023-07-12] MEDS: MIRALAX 17 GM POWD.PACK PO SCH ×2 (09:31→17:05)
[2023-07-12] MEDS: VITAMINS A AND D 5 GM UD PKT TP SCH ×2 (09:31→21:00)
[2023-07-12] MEDS: REMEDY ESSENTIAL ZINC PASTE 113 GM TP SCH ×2 (09:31→21:00)
[2023-07-12] MEDS: GUAIFENESIN SUGAR FREE 100 MG/5 ML UDC PO PRN ×2 (09:32→17:05)
[2023-07-12] MEDS: BENZONATATE 100 MG CAPSULE PO PRN ×2 (09:32→17:05)
[2023-07-12] MEDS: CHOLECALCIFEROL 1,000 UNIT TABLET PO SCH (17:05)
[2023-07-12] MEDS: ASPIRIN 81 MG TAB.CHEW PO SCH (17:05)
[2023-07-12] MEDS: OMEGA-3 FATTY ACIDS/FISH OIL CAPSULE PO SCH (17:05)
[2023-07-12] MEDS: ATORVASTATIN 20 MG TABLET PO SCH (17:05)
[2023-07-12] MEDS: MULTIVIT, IRON, MIN NO. 8, FA TABLET PO SCH (17:05)
[2023-07-12] MEDS: MAGNESIUM OXIDE 400 MG TABLET PO SCH (17:05)
[2023-07-12] MEDS: LATANOPROST OPHT DROP 2.5 ML BOTTLE EACHEYE SCH (21:00)
[2023-07-13] VITALS (10 sets, daily range): TEMP 98–98.1; O2SAT 97–99
[2023-07-13] MEDS: IPRATROPIUM/ALBUTEROL SULFATE 3 ML AMPUL.NEB NEB SCH ×4 (00:46→19:18)
[2023-07-13] MEDS: LEVOTHYROXINE SODIUM 112 MCG TABLET PO SCH (05:37)
[2023-07-13] MEDS: HYDROGEN PEROXIDE 3% 118 ML BOTTLE TP SCH ×2 (07:37→19:18)
[2023-07-13] MEDS: BUDESONIDE 0.5 MG/2 ML NEBU NEB SCH ×2 (07:37→19:18)
[2023-07-13] MEDS: FOLIC ACID 1 MG TABLET PO SCH (09:14)
[2023-07-13] MEDS: levETIRAcetam 500 MG/5 ML LIQUID UDC PO SCH ×2 (09:14→17:24)
[2023-07-13] MEDS: FERROUS SULFATE 325 MG TABEC PO SCH (09:14)
[2023-07-13] MEDS: DORZOLAMIDE/TIMOLOL OPHT DROP 10 ML BOTTLE EACHEYE SCH ×2 (09:14→17:24)
[2023-07-13] MEDS: TOLTERODINE 1 MG TABLET PO SCH ×2 (09:14→17:24)
[2023-07-13] MEDS: MIRALAX 17 GM POWD.PACK PO SCH ×2 (09:16→17:24)
[2023-07-13] MEDS: REMEDY ESSENTIAL ZINC PASTE 113 GM TP SCH ×2 (09:16→21:52)
[2023-07-13] MEDS: VITAMINS A AND D 5 GM UD PKT TP SCH ×2 (09:16→21:53)
[2023-07-13] MEDS: BENZONATATE 100 MG CAPSULE PO PRN ×2 (09:17→17:24)
[2023-07-13] MEDS: GUAIFENESIN SUGAR FREE 100 MG/5 ML UDC PO PRN ×2 (09:17→17:24)
[2023-07-13] MEDS: CHOLECALCIFEROL 1,000 UNIT TABLET PO SCH (17:24)
[2023-07-13] MEDS: ATORVASTATIN 20 MG TABLET PO SCH (17:24)
[2023-07-13] MEDS: MAGNESIUM OXIDE 400 MG TABLET PO SCH (17:24)
[2023-07-13] MEDS: OMEGA-3 FATTY ACIDS/FISH OIL CAPSULE PO SCH (17:24)
[2023-07-13] MEDS: ASPIRIN 81 MG TAB.CHEW PO SCH (17:24)
[2023-07-13] MEDS: MULTIVIT, IRON, MIN NO. 8, FA TABLET PO SCH (17:24)
[2023-07-13] MEDS: LATANOPROST OPHT DROP 2.5 ML BOTTLE EACHEYE SCH (21:52)
[2023-07-14] VITALS (10 sets, daily range): TEMP 97.8–98.8; O2SAT 97–99
[2023-07-14] MEDS: IPRATROPIUM/ALBUTEROL SULFATE 3 ML AMPUL.NEB NEB SCH ×4 (00:34→19:13)
[2023-07-14] MEDS: LEVOTHYROXINE SODIUM 112 MCG TABLET PO SCH (06:50)
[2023-07-14] MEDS: BUDESONIDE 0.5 MG/2 ML NEBU NEB SCH ×2 (07:31→19:13)
[2023-07-14] MEDS: HYDROGEN PEROXIDE 3% 118 ML BOTTLE TP SCH ×2 (08:07→19:32)
[2023-07-14] MEDS: DORZOLAMIDE/TIMOLOL OPHT DROP 10 ML BOTTLE EACHEYE SCH ×2 (09:45→17:00)
[2023-07-14] MEDS: FOLIC ACID 1 MG TABLET PO SCH (09:47)
[2023-07-14] MEDS: TOLTERODINE 1 MG TABLET PO SCH ×2 (09:47→17:00)
[2023-07-14] MEDS: FERROUS SULFATE 325 MG TABEC PO SCH (09:47)
[2023-07-14] MEDS: levETIRAcetam 500 MG/5 ML LIQUID UDC PO SCH ×2 (09:48→17:00)
[2023-07-14] MEDS: MIRALAX 17 GM POWD.PACK PO SCH ×2 (09:48→17:00)
[2023-07-14] MEDS: BENZONATATE 100 MG CAPSULE PO PRN ×2 (09:49→18:04)
[2023-07-14] MEDS: GUAIFENESIN SUGAR FREE 100 MG/5 ML UDC PO PRN ×2 (09:49→18:04)
[2023-07-14] MEDS: REMEDY ESSENTIAL ZINC PASTE 113 GM TP SCH ×2 (10:00→20:55)
[2023-07-14] MEDS: VITAMINS A AND D 5 GM UD PKT TP SCH ×2 (10:00→20:55)
[2023-07-14] MEDS: ASPIRIN 81 MG TAB.CHEW PO SCH (18:01)
[2023-07-14] MEDS: OMEGA-3 FATTY ACIDS/FISH OIL CAPSULE PO SCH (18:02)
[2023-07-14] MEDS: ATORVASTATIN 20 MG TABLET PO SCH (18:02)
[2023-07-14] MEDS: CHOLECALCIFEROL 1,000 UNIT TABLET PO SCH (18:04)
[2023-07-14] MEDS: MAGNESIUM OXIDE 400 MG TABLET PO SCH (18:04)
[2023-07-14] MEDS: MULTIVIT, IRON, MIN NO. 8, FA TABLET PO SCH (18:04)
[2023-07-14] MEDS: LATANOPROST OPHT DROP 2.5 ML BOTTLE EACHEYE SCH (20:55)
[2023-07-15] VITALS (11 sets, daily range): TEMP 97.5–98; O2SAT 97–99
[2023-07-15] MEDS: IPRATROPIUM/ALBUTEROL SULFATE 3 ML AMPUL.NEB NEB SCH ×4 (00:49→19:38)
[2023-07-15] MEDS: LEVOTHYROXINE SODIUM 112 MCG TABLET PO SCH (06:42)
[2023-07-15] MEDS: HYDROGEN PEROXIDE 3% 118 ML BOTTLE TP SCH ×2 (07:14→19:38)
[2023-07-15] MEDS: BUDESONIDE 0.5 MG/2 ML NEBU NEB SCH ×2 (07:14→19:38)
[2023-07-15] MEDS: REMEDY ESSENTIAL ZINC PASTE 113 GM TP SCH ×2 (09:00→21:00)
[2023-07-15] MEDS: DORZOLAMIDE/TIMOLOL OPHT DROP 10 ML BOTTLE EACHEYE SCH ×2 (09:00→16:48)
[2023-07-15] MEDS: VITAMINS A AND D 5 GM UD PKT TP SCH ×2 (09:00→21:00)
[2023-07-15] MEDS: FOLIC ACID 1 MG TABLET PO SCH (09:00)
[2023-07-15] MEDS: MIRALAX 17 GM POWD.PACK PO SCH ×2 (09:00→16:50)
[2023-07-15] MEDS: levETIRAcetam 500 MG/5 ML LIQUID UDC PO SCH ×2 (09:00→16:50)
[2023-07-15] MEDS: FERROUS SULFATE 325 MG TABEC PO SCH (09:00)
[2023-07-15] MEDS: TOLTERODINE 1 MG TABLET PO SCH ×2 (09:00→16:49)
[2023-07-15] MEDS: BENZONATATE 100 MG CAPSULE PO PRN (10:15)
[2023-07-15] MEDS: GUAIFENESIN SUGAR FREE 100 MG/5 ML UDC PO PRN (16:53)
[2023-07-15] MEDS: ATORVASTATIN 20 MG TABLET PO SCH (17:06)
[2023-07-15] MEDS: MULTIVIT, IRON, MIN NO. 8, FA TABLET PO SCH (17:06)
[2023-07-15] MEDS: CHOLECALCIFEROL 1,000 UNIT TABLET PO SCH (17:06)
[2023-07-15] MEDS: OMEGA-3 FATTY ACIDS/FISH OIL CAPSULE PO SCH (17:06)
[2023-07-15] MEDS: ASPIRIN 81 MG TAB.CHEW PO SCH (17:06)
[2023-07-15] MEDS: MAGNESIUM OXIDE 400 MG TABLET PO SCH (17:06)
[2023-07-15] MEDS: LATANOPROST OPHT DROP 2.5 ML BOTTLE EACHEYE SCH (21:00)
[2023-07-16] VITALS (10 sets, daily range): TEMP 98.1–98.5; O2SAT 97–99
[2023-07-16] MEDS: IPRATROPIUM/ALBUTEROL SULFATE 3 ML AMPUL.NEB NEB SCH ×4 (01:10→19:12)
[2023-07-16] MEDS: LEVOTHYROXINE SODIUM 112 MCG TABLET PO SCH (06:14)
[2023-07-16] MEDS: BUDESONIDE 0.5 MG/2 ML NEBU NEB SCH ×2 (07:23→19:12)
[2023-07-16] MEDS: HYDROGEN PEROXIDE 3% 118 ML BOTTLE TP SCH ×2 (09:00→19:12)
[2023-07-16] MEDS: FOLIC ACID 1 MG TABLET PO SCH (09:24)
[2023-07-16] MEDS: TOLTERODINE 1 MG TABLET PO SCH ×2 (09:24→17:14)
[2023-07-16] MEDS: FERROUS SULFATE 325 MG TABEC PO SCH (09:24)
[2023-07-16] MEDS: DORZOLAMIDE/TIMOLOL OPHT DROP 10 ML BOTTLE EACHEYE SCH ×2 (09:24→17:13)
[2023-07-16] MEDS: REMEDY ESSENTIAL ZINC PASTE 113 GM TP SCH ×2 (09:25→20:54)
[2023-07-16] MEDS: MIRALAX 17 GM POWD.PACK PO SCH ×2 (09:25→17:14)
[2023-07-16] MEDS: VITAMINS A AND D 5 GM UD PKT TP SCH ×2 (09:25→20:54)
[2023-07-16] MEDS: levETIRAcetam 500 MG/5 ML LIQUID UDC PO SCH ×2 (09:25→17:14)
[2023-07-16] MEDS: MULTIVIT, IRON, MIN NO. 8, FA TABLET PO SCH (17:14)
[2023-07-16] MEDS: MAGNESIUM OXIDE 400 MG TABLET PO SCH (17:14)
[2023-07-16] MEDS: CHOLECALCIFEROL 1,000 UNIT TABLET PO SCH (17:14)
[2023-07-16] MEDS: OMEGA-3 FATTY ACIDS/FISH OIL CAPSULE PO SCH (17:14)
[2023-07-16] MEDS: ATORVASTATIN 20 MG TABLET PO SCH (17:14)
[2023-07-16] MEDS: ASPIRIN 81 MG TAB.CHEW PO SCH (17:14)
[2023-07-16] MEDS: LATANOPROST OPHT DROP 2.5 ML BOTTLE EACHEYE SCH (20:54)
[2023-07-17] VITALS (10 sets, daily range): TEMP 98–98.1; O2SAT 98–99
[2023-07-17] MEDS: IPRATROPIUM/ALBUTEROL SULFATE 3 ML AMPUL.NEB NEB SCH ×4 (00:57→19:12)
[2023-07-17] MEDS: LEVOTHYROXINE SODIUM 112 MCG TABLET PO SCH (05:51)
[2023-07-17] MEDS: BUDESONIDE 0.5 MG/2 ML NEBU NEB SCH ×2 (08:25→19:12)
[2023-07-17] MEDS: HYDROGEN PEROXIDE 3% 118 ML BOTTLE TP SCH ×2 (08:26→19:12)
[2023-07-17] MEDS: DORZOLAMIDE/TIMOLOL OPHT DROP 10 ML BOTTLE EACHEYE SCH ×2 (09:11→17:13)
[2023-07-17] MEDS: levETIRAcetam 500 MG/5 ML LIQUID UDC PO SCH ×2 (09:13→17:13)
[2023-07-17] MEDS: FOLIC ACID 1 MG TABLET PO SCH (09:13)
[2023-07-17] MEDS: TOLTERODINE 1 MG TABLET PO SCH ×2 (09:13→17:13)
[2023-07-17] MEDS: FERROUS SULFATE 325 MG TABEC PO SCH (09:13)
[2023-07-17] MEDS: VITAMINS A AND D 5 GM UD PKT TP SCH ×2 (09:14→20:04)
[2023-07-17] MEDS: REMEDY ESSENTIAL ZINC PASTE 113 GM TP SCH ×2 (09:14→20:04)
[2023-07-17] MEDS: MIRALAX 17 GM POWD.PACK PO SCH ×2 (09:14→17:14)
[2023-07-17] MEDS: BENZONATATE 100 MG CAPSULE PO PRN (09:15)
[2023-07-17] MEDS: ATORVASTATIN 20 MG TABLET PO SCH (17:15)
[2023-07-17] MEDS: MAGNESIUM OXIDE 400 MG TABLET PO SCH (17:15)
[2023-07-17] MEDS: ASPIRIN 81 MG TAB.CHEW PO SCH (17:15)
[2023-07-17] MEDS: OMEGA-3 FATTY ACIDS/FISH OIL CAPSULE PO SCH (17:15)
[2023-07-17] MEDS: MULTIVIT, IRON, MIN NO. 8, FA TABLET PO SCH (17:15)
[2023-07-17] MEDS: CHOLECALCIFEROL 1,000 UNIT TABLET PO SCH (17:16)
[2023-07-17] MEDS: GUAIFENESIN SUGAR FREE 100 MG/5 ML UDC PO PRN (17:17)
[2023-07-17] MEDS: LATANOPROST OPHT DROP 2.5 ML BOTTLE EACHEYE SCH (20:04)
[2023-07-18] VITALS (10 sets, daily range): TEMP 98–98.1; O2SAT 98–99
[2023-07-18] MEDS: IPRATROPIUM/ALBUTEROL SULFATE 3 ML AMPUL.NEB NEB SCH ×4 (01:23→19:15)
[2023-07-18] MEDS: LEVOTHYROXINE SODIUM 112 MCG TABLET PO SCH (05:58)
[2023-07-18] MEDS: HYDROGEN PEROXIDE 3% 118 ML BOTTLE TP SCH ×2 (07:31→19:15)
[2023-07-18] MEDS: BUDESONIDE 0.5 MG/2 ML NEBU NEB SCH ×2 (07:31→19:15)
[2023-07-18] MEDS: TOLTERODINE 1 MG TABLET PO SCH ×2 (09:15→17:16)
[2023-07-18] MEDS: DORZOLAMIDE/TIMOLOL OPHT DROP 10 ML BOTTLE EACHEYE SCH ×2 (09:15→17:17)
[2023-07-18] MEDS: FOLIC ACID 1 MG TABLET PO SCH (09:16)
[2023-07-18] MEDS: FERROUS SULFATE 325 MG TABEC PO SCH (09:16)
[2023-07-18] MEDS: levETIRAcetam 500 MG/5 ML LIQUID UDC PO SCH ×2 (09:16→17:18)
[2023-07-18] MEDS: MIRALAX 17 GM POWD.PACK PO SCH ×2 (09:19→17:20)
[2023-07-18] MEDS: REMEDY ESSENTIAL ZINC PASTE 113 GM TP SCH ×2 (09:19→20:09)
[2023-07-18] MEDS: VITAMINS A AND D 5 GM UD PKT TP SCH ×2 (09:19→20:09)
[2023-07-18] MEDS: GUAIFENESIN SUGAR FREE 100 MG/5 ML UDC PO PRN ×2 (09:20→17:23)
[2023-07-18] MEDS: BENZONATATE 100 MG CAPSULE PO PRN ×2 (09:21→17:24)
[2023-07-18] MEDS: ASPIRIN 81 MG TAB.CHEW PO SCH (17:20)
[2023-07-18] MEDS: ATORVASTATIN 20 MG TABLET PO SCH (17:21)
[2023-07-18] MEDS: OMEGA-3 FATTY ACIDS/FISH OIL CAPSULE PO SCH (17:21)
[2023-07-18] MEDS: MULTIVIT, IRON, MIN NO. 8, FA TABLET PO SCH (17:22)
[2023-07-18] MEDS: MAGNESIUM OXIDE 400 MG TABLET PO SCH (17:22)
[2023-07-18] MEDS: CHOLECALCIFEROL 1,000 UNIT TABLET PO SCH (17:23)
[2023-07-18] MEDS: LATANOPROST OPHT DROP 2.5 ML BOTTLE EACHEYE SCH (20:09)
[2023-07-19] VITALS (10 sets, daily range): TEMP 97.7–98; O2SAT 98–99
[2023-07-19] MEDS: IPRATROPIUM/ALBUTEROL SULFATE 3 ML AMPUL.NEB NEB SCH ×4 (02:14→19:09)
[2023-07-19] MEDS: LEVOTHYROXINE SODIUM 112 MCG TABLET PO SCH (06:30)
[2023-07-19] MEDS: BUDESONIDE 0.5 MG/2 ML NEBU NEB SCH ×2 (07:13→19:09)
[2023-07-19] MEDS: HYDROGEN PEROXIDE 3% 118 ML BOTTLE TP SCH ×2 (07:13→19:10)
[2023-07-19] MEDS: FOLIC ACID 1 MG TABLET PO SCH (09:07)
[2023-07-19] MEDS: FERROUS SULFATE 325 MG TABEC PO SCH (09:07)
[2023-07-19] MEDS: TOLTERODINE 1 MG TABLET PO SCH ×2 (09:07→17:39)
[2023-07-19] MEDS: levETIRAcetam 500 MG/5 ML LIQUID UDC PO SCH ×2 (09:08→17:39)
[2023-07-19] MEDS: MIRALAX 17 GM POWD.PACK PO SCH ×2 (09:08→17:39)
[2023-07-19] MEDS: GUAIFENESIN SUGAR FREE 100 MG/5 ML UDC PO PRN ×2 (09:09→17:40)
[2023-07-19] MEDS: BENZONATATE 100 MG CAPSULE PO PRN ×2 (09:09→17:40)
[2023-07-19] MEDS: DORZOLAMIDE/TIMOLOL OPHT DROP 10 ML BOTTLE EACHEYE SCH ×2 (09:16→17:39)
[2023-07-19] MEDS: VITAMINS A AND D 5 GM UD PKT TP SCH ×2 (09:17→20:23)
[2023-07-19] MEDS: REMEDY ESSENTIAL ZINC PASTE 113 GM TP SCH ×2 (09:17→20:23)
[2023-07-19] MEDS: MAGNESIUM OXIDE 400 MG TABLET PO SCH (17:40)
[2023-07-19] MEDS: OMEGA-3 FATTY ACIDS/FISH OIL CAPSULE PO SCH (17:40)
[2023-07-19] MEDS: ATORVASTATIN 20 MG TABLET PO SCH (17:40)
[2023-07-19] MEDS: ASPIRIN 81 MG TAB.CHEW PO SCH (17:40)
[2023-07-19] MEDS: CHOLECALCIFEROL 1,000 UNIT TABLET PO SCH (17:40)
[2023-07-19] MEDS: MULTIVIT, IRON, MIN NO. 8, FA TABLET PO SCH (17:40)
[2023-07-19] MEDS: LATANOPROST OPHT DROP 2.5 ML BOTTLE EACHEYE SCH (20:23)
[2023-07-20] VITALS (10 sets, daily range): TEMP 98–98.1; O2SAT 98–99
[2023-07-20] MEDS: IPRATROPIUM/ALBUTEROL SULFATE 3 ML AMPUL.NEB NEB SCH ×4 (01:04→19:32)
[2023-07-20] MEDS: LEVOTHYROXINE SODIUM 112 MCG TABLET PO SCH (06:19)
[2023-07-20] MEDS: BUDESONIDE 0.5 MG/2 ML NEBU NEB SCH ×2 (07:29→19:32)
[2023-07-20] MEDS: HYDROGEN PEROXIDE 3% 118 ML BOTTLE TP SCH ×2 (08:18→21:23)
[2023-07-20] MEDS: TOLTERODINE 1 MG TABLET PO SCH ×2 (09:20→16:06)
[2023-07-20] MEDS: DORZOLAMIDE/TIMOLOL OPHT DROP 10 ML BOTTLE EACHEYE SCH ×2 (09:20→16:06)
[2023-07-20] MEDS: FERROUS SULFATE 325 MG TABEC PO SCH (09:20)
[2023-07-20] MEDS: REMEDY ESSENTIAL ZINC PASTE 113 GM TP SCH ×2 (09:21→21:17)
[2023-07-20] MEDS: VITAMINS A AND D 5 GM UD PKT TP SCH ×2 (09:21→21:17)
[2023-07-20] MEDS: FOLIC ACID 1 MG TABLET PO SCH (09:21)
[2023-07-20] MEDS: MIRALAX 17 GM POWD.PACK PO SCH ×2 (09:21→16:07)
[2023-07-20] MEDS: levETIRAcetam 500 MG/5 ML LIQUID UDC PO SCH ×2 (09:21→16:06)
[2023-07-20] MEDS: BENZONATATE 100 MG CAPSULE PO PRN ×2 (09:22→16:09)
[2023-07-20] MEDS: GUAIFENESIN SUGAR FREE 100 MG/5 ML UDC PO PRN ×2 (09:22→16:09)
[2023-07-20] MEDS: MAGNESIUM OXIDE 400 MG TABLET PO SCH (17:53)
[2023-07-20] MEDS: OMEGA-3 FATTY ACIDS/FISH OIL CAPSULE PO SCH (17:53)
[2023-07-20] MEDS: CHOLECALCIFEROL 1,000 UNIT TABLET PO SCH (17:53)
[2023-07-20] MEDS: MULTIVIT, IRON, MIN NO. 8, FA TABLET PO SCH (17:53)
[2023-07-20] MEDS: ATORVASTATIN 20 MG TABLET PO SCH (17:53)
[2023-07-20] MEDS: ASPIRIN 81 MG TAB.CHEW PO SCH (17:53)
[2023-07-20] MEDS: LATANOPROST OPHT DROP 2.5 ML BOTTLE EACHEYE SCH (21:17)
[2023-07-21] VITALS (9 sets, daily range): TEMP 98; O2SAT 97–99
[2023-07-21] MEDS: IPRATROPIUM/ALBUTEROL SULFATE 3 ML AMPUL.NEB NEB SCH ×4 (01:30→19:05)
[2023-07-21] MEDS: LEVOTHYROXINE SODIUM 112 MCG TABLET PO SCH (05:47)
[2023-07-21 07:26] LABS: BASOPHILS % (AUTO) 0.7 % (0.0-2.0); EOSINOPHILS # (AUTO) 0.2 K/uL (0.0-0.7); HEMATOCRIT 33.5 % (31.2-41.9); HEMOGLOBIN 10.9 g/dL (10.9-14.3); LYMPHOCYTES # (AUTO) 1.3 K/uL (0.8-4.8); LYMPHOCYTES % (AUTO) 25.5 % (20.5-51.5); MEAN CORPUSCULAR HGB CONC 33 g/dL (32.3-35.6); MEAN CORPUSCULAR VOLUME 89.2 fL (75.5-95.3); MONOCYTES # (AUTO) 0.7 K/uL (0.1-1.30); MONOCYTES % (AUTO) 12.7 % (0.0-11.0); NEUTROPHILS % (AUTO) 58.1 % (38.5-71.5); PLATELET COUNT (AUTO) 184 K/uL (179-408); RED BLOOD CELL COUNT(AUTO) 3.75 MIL/uL (3.63-4.92); RED CELL DISTRIBUTION WIDTH 15.1 % (12.3-17.7); WHITE BLOOD COUNT (AUTO) 5.2 K/uL (3.8-11.8)
[2023-07-21 07:33] LABS: DIFFERENTIAL COMMENT 1
[2023-07-21 07:45] LABS: CALCIUM 8.4 mg/dL (8.5-10.1); CARBON DIOXIDE 34 mmol/L (21-32); CHLORIDE 98 mmol/L (98-107); CREATININE 0.6 mg/dL (0.6-1.3); GLUCOSE 95 mg/dL (74-106); MAGNESIUM 1.9 mg/dL (1.8-2.4); PHOSPHOROUS 4.1 mg/dL (2.5-4.9); POTASSIUM 4.2 mmol/L (3.5-5.1); SODIUM SERUM 135 mmol/L (136-145); UREA NITROGEN, BLOOD 14 mg/dL (7-18)
[2023-07-21] MEDS: BUDESONIDE 0.5 MG/2 ML NEBU NEB SCH ×2 (07:47→19:05)
[2023-07-21] MEDS: FOLIC ACID 1 MG TABLET PO SCH (09:27)
[2023-07-21] MEDS: levETIRAcetam 500 MG/5 ML LIQUID UDC PO SCH ×2 (09:27→17:02)
[2023-07-21] MEDS: TOLTERODINE 1 MG TABLET PO SCH ×2 (09:27→17:02)
[2023-07-21] MEDS: DORZOLAMIDE/TIMOLOL OPHT DROP 10 ML BOTTLE EACHEYE SCH ×2 (09:27→17:02)
[2023-07-21] MEDS: MIRALAX 17 GM POWD.PACK PO SCH ×2 (09:28→17:02)
[2023-07-21] MEDS: REMEDY ESSENTIAL ZINC PASTE 113 GM TP SCH ×2 (09:29→21:23)
[2023-07-21] MEDS: VITAMINS A AND D 5 GM UD PKT TP SCH ×2 (09:29→21:23)
[2023-07-21] MEDS: HYDROGEN PEROXIDE 3% 118 ML BOTTLE TP SCH ×2 (09:29→19:06)
[2023-07-21] MEDS: FERROUS SULFATE 325 MG TABEC PO SCH (09:30)
[2023-07-21] MEDS: BENZONATATE 100 MG CAPSULE PO PRN ×2 (09:30→17:12)
[2023-07-21] MEDS: GUAIFENESIN SUGAR FREE 100 MG/5 ML UDC PO PRN ×2 (09:31→17:12)
[2023-07-21] MEDS: ASPIRIN 81 MG TAB.CHEW PO SCH (17:02)
[2023-07-21] MEDS: CHOLECALCIFEROL 1,000 UNIT TABLET PO SCH (17:02)
[2023-07-21] MEDS: MULTIVIT, IRON, MIN NO. 8, FA TABLET PO SCH (17:02)
[2023-07-21] MEDS: ATORVASTATIN 20 MG TABLET PO SCH (17:02)
[2023-07-21] MEDS: OMEGA-3 FATTY ACIDS/FISH OIL CAPSULE PO SCH (17:02)
[2023-07-21] MEDS: MAGNESIUM OXIDE 400 MG TABLET PO SCH (17:02)
[2023-07-21] MEDS: LATANOPROST OPHT DROP 2.5 ML BOTTLE EACHEYE SCH (21:23)
[2023-07-22] VITALS (11 sets, daily range): TEMP 97.3–97.8; O2SAT 98–99
[2023-07-22] MEDS: IPRATROPIUM/ALBUTEROL SULFATE 3 ML AMPUL.NEB NEB SCH ×4 (01:39→19:15)
[2023-07-22] MEDS: LEVOTHYROXINE SODIUM 112 MCG TABLET PO SCH (05:31)
[2023-07-22] MEDS: HYDROGEN PEROXIDE 3% 118 ML BOTTLE TP SCH ×2 (08:14→19:15)
[2023-07-22] MEDS: BUDESONIDE 0.5 MG/2 ML NEBU NEB SCH ×2 (08:14→19:15)
[2023-07-22] MEDS: DORZOLAMIDE/TIMOLOL OPHT DROP 10 ML BOTTLE EACHEYE SCH ×2 (08:53→17:10)
[2023-07-22] MEDS: TOLTERODINE 1 MG TABLET PO SCH ×2 (08:53→17:13)
[2023-07-22] MEDS: FERROUS SULFATE 325 MG TABEC PO SCH (08:54)
[2023-07-22] MEDS: FOLIC ACID 1 MG TABLET PO SCH (08:54)
[2023-07-22] MEDS: MIRALAX 17 GM POWD.PACK PO SCH ×2 (08:56→17:13)
[2023-07-22] MEDS: REMEDY ESSENTIAL ZINC PASTE 113 GM TP SCH ×2 (08:56→21:00)
[2023-07-22] MEDS: VITAMINS A AND D 5 GM UD PKT TP SCH ×2 (08:56→21:00)
[2023-07-22] MEDS: levETIRAcetam 500 MG/5 ML LIQUID UDC PO SCH ×2 (08:56→17:13)
[2023-07-22] MEDS: MULTIVIT, IRON, MIN NO. 8, FA TABLET PO SCH (17:13)
[2023-07-22] MEDS: MAGNESIUM OXIDE 400 MG TABLET PO SCH (17:13)
[2023-07-22] MEDS: ASPIRIN 81 MG TAB.CHEW PO SCH (17:13)
[2023-07-22] MEDS: CHOLECALCIFEROL 1,000 UNIT TABLET PO SCH (17:13)
[2023-07-22] MEDS: GUAIFENESIN SUGAR FREE 100 MG/5 ML UDC PO PRN (17:13)
[2023-07-22] MEDS: BENZONATATE 100 MG CAPSULE PO PRN (17:13)
[2023-07-22] MEDS: ATORVASTATIN 20 MG TABLET PO SCH (17:13)
[2023-07-22] MEDS: OMEGA-3 FATTY ACIDS/FISH OIL CAPSULE PO SCH (17:13)
[2023-07-22] MEDS: LATANOPROST OPHT DROP 2.5 ML BOTTLE EACHEYE SCH (21:00)
[2023-07-23] VITALS (10 sets, daily range): TEMP 97.7–97.8; O2SAT 98–99
[2023-07-23] MEDS: IPRATROPIUM/ALBUTEROL SULFATE 3 ML AMPUL.NEB NEB SCH ×4 (01:17→19:13)
[2023-07-23] MEDS: LEVOTHYROXINE SODIUM 112 MCG TABLET PO SCH (05:54)
[2023-07-23] MEDS: HYDROGEN PEROXIDE 3% 118 ML BOTTLE TP SCH ×2 (07:28→21:39)
[2023-07-23] MEDS: BUDESONIDE 0.5 MG/2 ML NEBU NEB SCH ×2 (07:28→19:36)
[2023-07-23] MEDS: VITAMINS A AND D 5 GM UD PKT TP SCH ×2 (09:00→21:28)
[2023-07-23] MEDS: TOLTERODINE 1 MG TABLET PO SCH ×2 (09:03→17:23)
[2023-07-23] MEDS: DORZOLAMIDE/TIMOLOL OPHT DROP 10 ML BOTTLE EACHEYE SCH ×2 (09:03→17:23)
[2023-07-23] MEDS: FOLIC ACID 1 MG TABLET PO SCH (09:04)
[2023-07-23] MEDS: FERROUS SULFATE 325 MG TABEC PO SCH (09:04)
[2023-07-23] MEDS: levETIRAcetam 500 MG/5 ML LIQUID UDC PO SCH ×2 (09:05→17:23)
[2023-07-23] MEDS: MIRALAX 17 GM POWD.PACK PO SCH ×2 (09:05→17:23)
[2023-07-23] MEDS: GUAIFENESIN SUGAR FREE 100 MG/5 ML UDC PO PRN ×2 (09:06→17:23)
[2023-07-23] MEDS: BENZONATATE 100 MG CAPSULE PO PRN ×2 (09:06→17:23)
[2023-07-23] MEDS: REMEDY ESSENTIAL ZINC PASTE 113 GM TP SCH ×2 (09:06→21:28)
[2023-07-23] MEDS: MULTIVIT, IRON, MIN NO. 8, FA TABLET PO SCH (17:23)
[2023-07-23] MEDS: OMEGA-3 FATTY ACIDS/FISH OIL CAPSULE PO SCH (17:23)
[2023-07-23] MEDS: ATORVASTATIN 20 MG TABLET PO SCH (17:23)
[2023-07-23] MEDS: ASPIRIN 81 MG TAB.CHEW PO SCH (17:23)
[2023-07-23] MEDS: CHOLECALCIFEROL 1,000 UNIT TABLET PO SCH (17:23)
[2023-07-23] MEDS: MAGNESIUM OXIDE 400 MG TABLET PO SCH (17:23)
[2023-07-23] MEDS: LATANOPROST OPHT DROP 2.5 ML BOTTLE EACHEYE SCH (21:28)
[2023-07-24] VITALS (10 sets, daily range): TEMP 96.8–97.5; O2SAT 97–99
[2023-07-24] MEDS: IPRATROPIUM/ALBUTEROL SULFATE 3 ML AMPUL.NEB NEB SCH ×4 (01:22→19:11)
[2023-07-24] MEDS: LEVOTHYROXINE SODIUM 112 MCG TABLET PO SCH (06:16)
[2023-07-24] MEDS: BUDESONIDE 0.5 MG/2 ML NEBU NEB SCH ×2 (07:32→19:11)
[2023-07-24] MEDS: TOLTERODINE 1 MG TABLET PO SCH ×2 (08:48→17:18)
[2023-07-24] MEDS: DORZOLAMIDE/TIMOLOL OPHT DROP 10 ML BOTTLE EACHEYE SCH ×2 (08:48→17:18)
[2023-07-24] MEDS: FERROUS SULFATE 325 MG TABEC PO SCH (08:49)
[2023-07-24] MEDS: FOLIC ACID 1 MG TABLET PO SCH (08:49)
[2023-07-24] MEDS: levETIRAcetam 500 MG/5 ML LIQUID UDC PO SCH ×2 (08:49→17:18)
[2023-07-24] MEDS: MIRALAX 17 GM POWD.PACK PO SCH ×2 (08:50→17:18)
[2023-07-24] MEDS: VITAMINS A AND D 5 GM UD PKT TP SCH ×2 (08:50→21:23)
[2023-07-24] MEDS: REMEDY ESSENTIAL ZINC PASTE 113 GM TP SCH ×2 (08:50→21:23)
[2023-07-24] MEDS: HYDROGEN PEROXIDE 3% 118 ML BOTTLE TP SCH ×2 (09:00→19:11)
[2023-07-24] MEDS: BENZONATATE 100 MG CAPSULE PO PRN ×2 (09:38→22:05)
[2023-07-24] MEDS: GUAIFENESIN SUGAR FREE 100 MG/5 ML UDC PO PRN (09:38)
[2023-07-24] MEDS: ASPIRIN 81 MG TAB.CHEW PO SCH (17:19)
[2023-07-24] MEDS: MAGNESIUM OXIDE 400 MG TABLET PO SCH (17:20)
[2023-07-24] MEDS: ATORVASTATIN 20 MG TABLET PO SCH (17:20)
[2023-07-24] MEDS: OMEGA-3 FATTY ACIDS/FISH OIL CAPSULE PO SCH (17:20)
[2023-07-24] MEDS: CHOLECALCIFEROL 1,000 UNIT TABLET PO SCH (17:21)
[2023-07-24] MEDS: MULTIVIT, IRON, MIN NO. 8, FA TABLET PO SCH (17:21)
[2023-07-24] MEDS: LATANOPROST OPHT DROP 2.5 ML BOTTLE EACHEYE SCH (21:23)
[2023-07-25] VITALS (10 sets, daily range): TEMP 97.7–97.8; O2SAT 97–99
[2023-07-25] MEDS: IPRATROPIUM/ALBUTEROL SULFATE 3 ML AMPUL.NEB NEB SCH ×4 (02:12→19:20)
[2023-07-25] MEDS: LEVOTHYROXINE SODIUM 112 MCG TABLET PO SCH (06:20)
[2023-07-25] MEDS: BUDESONIDE 0.5 MG/2 ML NEBU NEB SCH ×2 (08:19→19:20)
[2023-07-25] MEDS: HYDROGEN PEROXIDE 3% 118 ML BOTTLE TP SCH ×2 (08:19→19:20)
[2023-07-25] MEDS: TOLTERODINE 1 MG TABLET PO SCH ×2 (08:36→17:21)
[2023-07-25] MEDS: FOLIC ACID 1 MG TABLET PO SCH (08:36)
[2023-07-25] MEDS: levETIRAcetam 500 MG/5 ML LIQUID UDC PO SCH ×2 (08:36→17:21)
[2023-07-25] MEDS: DORZOLAMIDE/TIMOLOL OPHT DROP 10 ML BOTTLE EACHEYE SCH ×2 (08:36→17:21)
[2023-07-25] MEDS: FERROUS SULFATE 325 MG TABEC PO SCH (08:36)
[2023-07-25] MEDS: REMEDY ESSENTIAL ZINC PASTE 113 GM TP SCH ×2 (08:37→20:06)
[2023-07-25] MEDS: MIRALAX 17 GM POWD.PACK PO SCH ×2 (08:37→17:21)
[2023-07-25] MEDS: VITAMINS A AND D 5 GM UD PKT TP SCH ×2 (08:37→20:06)
[2023-07-25] MEDS: ATORVASTATIN 20 MG TABLET PO SCH (17:21)
[2023-07-25] MEDS: ASPIRIN 81 MG TAB.CHEW PO SCH (17:21)
[2023-07-25] MEDS: BENZONATATE 100 MG CAPSULE PO PRN (17:21)
[2023-07-25] MEDS: GUAIFENESIN SUGAR FREE 100 MG/5 ML UDC PO PRN (17:21)
[2023-07-25] MEDS: CHOLECALCIFEROL 1,000 UNIT TABLET PO SCH (17:21)
[2023-07-25] MEDS: MULTIVIT, IRON, MIN NO. 8, FA TABLET PO SCH (17:21)
[2023-07-25] MEDS: MAGNESIUM OXIDE 400 MG TABLET PO SCH (17:21)
[2023-07-25] MEDS: OMEGA-3 FATTY ACIDS/FISH OIL CAPSULE PO SCH (17:21)
[2023-07-25] MEDS: LATANOPROST OPHT DROP 2.5 ML BOTTLE EACHEYE SCH (20:06)
[2023-07-26] VITALS (10 sets, daily range): TEMP 97.4–97.8; O2SAT 97–99
[2023-07-26] MEDS: IPRATROPIUM/ALBUTEROL SULFATE 3 ML AMPUL.NEB NEB SCH ×4 (01:07→19:07)
[2023-07-26] MEDS: LEVOTHYROXINE SODIUM 112 MCG TABLET PO SCH (06:40)
[2023-07-26] MEDS: BUDESONIDE 0.5 MG/2 ML NEBU NEB SCH ×2 (07:30→19:07)
[2023-07-26] MEDS: HYDROGEN PEROXIDE 3% 118 ML BOTTLE TP SCH ×2 (09:00→19:08)
[2023-07-26] MEDS: DORZOLAMIDE/TIMOLOL OPHT DROP 10 ML BOTTLE EACHEYE SCH ×2 (09:10→17:11)
[2023-07-26] MEDS: TOLTERODINE 1 MG TABLET PO SCH ×2 (09:11→17:11)
[2023-07-26] MEDS: FERROUS SULFATE 325 MG TABEC PO SCH (09:12)
[2023-07-26] MEDS: FOLIC ACID 1 MG TABLET PO SCH (09:12)
[2023-07-26] MEDS: levETIRAcetam 500 MG/5 ML LIQUID UDC PO SCH ×2 (09:13→17:11)
[2023-07-26] MEDS: MIRALAX 17 GM POWD.PACK PO SCH ×2 (09:13→17:12)
[2023-07-26] MEDS: GUAIFENESIN SUGAR FREE 100 MG/5 ML UDC PO PRN ×2 (09:14→17:17)
[2023-07-26] MEDS: BENZONATATE 100 MG CAPSULE PO PRN ×2 (09:14→17:17)
[2023-07-26] MEDS: VITAMINS A AND D 5 GM UD PKT TP SCH ×2 (09:14→21:36)
[2023-07-26] MEDS: REMEDY ESSENTIAL ZINC PASTE 113 GM TP SCH ×2 (09:14→21:36)
[2023-07-26] MEDS: ASPIRIN 81 MG TAB.CHEW PO SCH (17:12)
[2023-07-26] MEDS: OMEGA-3 FATTY ACIDS/FISH OIL CAPSULE PO SCH (17:12)
[2023-07-26] MEDS: MAGNESIUM OXIDE 400 MG TABLET PO SCH (17:12)
[2023-07-26] MEDS: ATORVASTATIN 20 MG TABLET PO SCH (17:12)
[2023-07-26] MEDS: MULTIVIT, IRON, MIN NO. 8, FA TABLET PO SCH (17:14)
[2023-07-26] MEDS: CHOLECALCIFEROL 1,000 UNIT TABLET PO SCH (17:15)
[2023-07-26] MEDS: LATANOPROST OPHT DROP 2.5 ML BOTTLE EACHEYE SCH (21:36)
[2023-07-27] VITALS (10 sets, daily range): TEMP 97.6–98.3; O2SAT 98–99
[2023-07-27] MEDS: IPRATROPIUM/ALBUTEROL SULFATE 3 ML AMPUL.NEB NEB SCH ×4 (00:31→19:03)
[2023-07-27] MEDS: LEVOTHYROXINE SODIUM 112 MCG TABLET PO SCH (06:08)
[2023-07-27] MEDS: HYDROGEN PEROXIDE 3% 118 ML BOTTLE TP SCH ×2 (07:19→19:03)
[2023-07-27] MEDS: BUDESONIDE 0.5 MG/2 ML NEBU NEB SCH ×2 (07:19→19:03)
[2023-07-27] MEDS: VITAMINS A AND D 5 GM UD PKT TP SCH ×2 (09:45→21:51)
[2023-07-27] MEDS: FERROUS SULFATE 325 MG TABEC PO SCH (09:45)
[2023-07-27] MEDS: levETIRAcetam 500 MG/5 ML LIQUID UDC PO SCH ×2 (09:45→17:08)
[2023-07-27] MEDS: MIRALAX 17 GM POWD.PACK PO SCH ×2 (09:45→17:08)
[2023-07-27] MEDS: FOLIC ACID 1 MG TABLET PO SCH (09:45)
[2023-07-27] MEDS: REMEDY ESSENTIAL ZINC PASTE 113 GM TP SCH ×2 (09:45→21:51)
[2023-07-27] MEDS: TOLTERODINE 1 MG TABLET PO SCH ×2 (09:45→17:08)
[2023-07-27] MEDS: DORZOLAMIDE/TIMOLOL OPHT DROP 10 ML BOTTLE EACHEYE SCH ×2 (09:45→17:08)
[2023-07-27] MEDS: MULTIVIT, IRON, MIN NO. 8, FA TABLET PO SCH (17:08)
[2023-07-27] MEDS: MAGNESIUM OXIDE 400 MG TABLET PO SCH (17:08)
[2023-07-27] MEDS: CHOLECALCIFEROL 1,000 UNIT TABLET PO SCH (17:08)
[2023-07-27] MEDS: BENZONATATE 100 MG CAPSULE PO PRN (17:08)
[2023-07-27] MEDS: OMEGA-3 FATTY ACIDS/FISH OIL CAPSULE PO SCH (17:08)
[2023-07-27] MEDS: GUAIFENESIN SUGAR FREE 100 MG/5 ML UDC PO PRN (17:08)
[2023-07-27] MEDS: ASPIRIN 81 MG TAB.CHEW PO SCH (17:08)
[2023-07-27] MEDS: ATORVASTATIN 20 MG TABLET PO SCH (17:08)
[2023-07-27] MEDS: LATANOPROST OPHT DROP 2.5 ML BOTTLE EACHEYE SCH (21:51)
[2023-07-28] VITALS (10 sets, daily range): TEMP 97.7–98.7; O2SAT 98–99
[2023-07-28] MEDS: IPRATROPIUM/ALBUTEROL SULFATE 3 ML AMPUL.NEB NEB SCH ×4 (00:31→18:58)
[2023-07-28] MEDS: LEVOTHYROXINE SODIUM 112 MCG TABLET PO SCH (05:38)
[2023-07-28] MEDS: BUDESONIDE 0.5 MG/2 ML NEBU NEB SCH ×2 (07:04→18:58)
[2023-07-28] MEDS: HYDROGEN PEROXIDE 3% 118 ML BOTTLE TP SCH ×2 (07:05→18:58)
[2023-07-28] MEDS: DORZOLAMIDE/TIMOLOL OPHT DROP 10 ML BOTTLE EACHEYE SCH ×2 (09:58→17:47)
[2023-07-28] MEDS: levETIRAcetam 500 MG/5 ML LIQUID UDC PO SCH ×2 (09:58→17:47)
[2023-07-28] MEDS: REMEDY ESSENTIAL ZINC PASTE 113 GM TP SCH ×2 (09:58→20:11)
[2023-07-28] MEDS: FERROUS SULFATE 325 MG TABEC PO SCH (09:58)
[2023-07-28] MEDS: TOLTERODINE 1 MG TABLET PO SCH ×2 (09:58→17:47)
[2023-07-28] MEDS: MIRALAX 17 GM POWD.PACK PO SCH ×2 (09:58→17:47)
[2023-07-28] MEDS: VITAMINS A AND D 5 GM UD PKT TP SCH ×2 (09:58→20:11)
[2023-07-28] MEDS: FOLIC ACID 1 MG TABLET PO SCH (09:58)
[2023-07-28] MEDS: BENZONATATE 100 MG CAPSULE PO PRN ×2 (09:59→17:52)
[2023-07-28] MEDS: GUAIFENESIN SUGAR FREE 100 MG/5 ML UDC PO PRN ×2 (09:59→17:52)
[2023-07-28] MEDS: OMEGA-3 FATTY ACIDS/FISH OIL CAPSULE PO SCH (17:48)
[2023-07-28] MEDS: ASPIRIN 81 MG TAB.CHEW PO SCH (17:48)
[2023-07-28] MEDS: ATORVASTATIN 20 MG TABLET PO SCH (17:49)
[2023-07-28] MEDS: MAGNESIUM OXIDE 400 MG TABLET PO SCH (17:49)
[2023-07-28] MEDS: CHOLECALCIFEROL 1,000 UNIT TABLET PO SCH (17:49)
[2023-07-28] MEDS: MULTIVIT, IRON, MIN NO. 8, FA TABLET PO SCH (17:49)
[2023-07-28] MEDS: LATANOPROST OPHT DROP 2.5 ML BOTTLE EACHEYE SCH (20:11)
[2023-07-29] VITALS (10 sets, daily range): TEMP 98.2–98.4; O2SAT 96–99
[2023-07-29] MEDS: IPRATROPIUM/ALBUTEROL SULFATE 3 ML AMPUL.NEB NEB SCH ×4 (01:21→19:08)
[2023-07-29] MEDS: LEVOTHYROXINE SODIUM 112 MCG TABLET PO SCH (05:34)
[2023-07-29] MEDS: BUDESONIDE 0.5 MG/2 ML NEBU NEB SCH ×2 (07:09→19:08)
[2023-07-29] MEDS: HYDROGEN PEROXIDE 3% 118 ML BOTTLE TP SCH ×2 (07:09→19:08)
[2023-07-29] MEDS: DORZOLAMIDE/TIMOLOL OPHT DROP 10 ML BOTTLE EACHEYE SCH ×2 (09:11→17:33)
[2023-07-29] MEDS: FOLIC ACID 1 MG TABLET PO SCH (09:13)
[2023-07-29] MEDS: TOLTERODINE 1 MG TABLET PO SCH ×2 (09:14→17:33)
[2023-07-29] MEDS: FERROUS SULFATE 325 MG TABEC PO SCH (09:14)
[2023-07-29] MEDS: levETIRAcetam 500 MG/5 ML LIQUID UDC PO SCH ×2 (09:15→17:34)
[2023-07-29] MEDS: REMEDY ESSENTIAL ZINC PASTE 113 GM TP SCH ×2 (09:15→21:09)
[2023-07-29] MEDS: VITAMINS A AND D 5 GM UD PKT TP SCH ×2 (09:15→21:09)
[2023-07-29] MEDS: MIRALAX 17 GM POWD.PACK PO SCH ×2 (09:15→17:35)
[2023-07-29] MEDS: BENZONATATE 100 MG CAPSULE PO PRN ×2 (09:16→17:49)
[2023-07-29] MEDS: GUAIFENESIN SUGAR FREE 100 MG/5 ML UDC PO PRN ×2 (09:17→17:48)
[2023-07-29] MEDS: ATORVASTATIN 20 MG TABLET PO SCH (17:33)
[2023-07-29] MEDS: ASPIRIN 81 MG TAB.CHEW PO SCH (17:36)
[2023-07-29] MEDS: MAGNESIUM OXIDE 400 MG TABLET PO SCH (17:37)
[2023-07-29] MEDS: OMEGA-3 FATTY ACIDS/FISH OIL CAPSULE PO SCH (17:37)
[2023-07-29] MEDS: MULTIVIT, IRON, MIN NO. 8, FA TABLET PO SCH (17:38)
[2023-07-29] MEDS: CHOLECALCIFEROL 1,000 UNIT TABLET PO SCH (18:01)
[2023-07-29] MEDS: LATANOPROST OPHT DROP 2.5 ML BOTTLE EACHEYE SCH (21:09)
[2023-07-30] VITALS (11 sets, daily range): TEMP 97.6–98.2; O2SAT 96–99
[2023-07-30] MEDS: IPRATROPIUM/ALBUTEROL SULFATE 3 ML AMPUL.NEB NEB SCH ×4 (01:05→20:43)
[2023-07-30] MEDS: LEVOTHYROXINE SODIUM 112 MCG TABLET PO SCH (06:16)
[2023-07-30] MEDS: BUDESONIDE 0.5 MG/2 ML NEBU NEB SCH ×2 (07:31→20:44)
[2023-07-30] MEDS: HYDROGEN PEROXIDE 3% 118 ML BOTTLE TP SCH ×2 (08:50→21:06)
[2023-07-30] MEDS: DORZOLAMIDE/TIMOLOL OPHT DROP 10 ML BOTTLE EACHEYE SCH ×2 (09:09→16:49)
[2023-07-30] MEDS: TOLTERODINE 1 MG TABLET PO SCH ×2 (09:11→16:49)
[2023-07-30] MEDS: FOLIC ACID 1 MG TABLET PO SCH (09:11)
[2023-07-30] MEDS: levETIRAcetam 500 MG/5 ML LIQUID UDC PO SCH ×2 (09:12→16:49)
[2023-07-30] MEDS: FERROUS SULFATE 325 MG TABEC PO SCH (09:12)
[2023-07-30] MEDS: MIRALAX 17 GM POWD.PACK PO SCH ×2 (09:12→16:50)
[2023-07-30] MEDS: REMEDY ESSENTIAL ZINC PASTE 113 GM TP SCH ×2 (09:13→20:53)
[2023-07-30] MEDS: VITAMINS A AND D 5 GM UD PKT TP SCH ×2 (09:13→20:53)
[2023-07-30] MEDS: BENZONATATE 100 MG CAPSULE PO PRN ×2 (09:14→18:27)
[2023-07-30] MEDS: GUAIFENESIN SUGAR FREE 100 MG/5 ML UDC PO PRN ×2 (09:14→18:27)
[2023-07-30] MEDS: MAGNESIUM OXIDE 400 MG TABLET PO SCH (18:26)
[2023-07-30] MEDS: ATORVASTATIN 20 MG TABLET PO SCH (18:26)
[2023-07-30] MEDS: ASPIRIN 81 MG TAB.CHEW PO SCH (18:26)
[2023-07-30] MEDS: OMEGA-3 FATTY ACIDS/FISH OIL CAPSULE PO SCH (18:26)
[2023-07-30] MEDS: MULTIVIT, IRON, MIN NO. 8, FA TABLET PO SCH (18:26)
[2023-07-30] MEDS: CHOLECALCIFEROL 1,000 UNIT TABLET PO SCH (18:27)
[2023-07-30] MEDS: LATANOPROST OPHT DROP 2.5 ML BOTTLE EACHEYE SCH (20:53)
[2023-07-31] VITALS (10 sets, daily range): BP systolic 115; BP diastolic 53; TEMP 98–98.6; O2SAT 98–99
[2023-07-31] MEDS: IPRATROPIUM/ALBUTEROL SULFATE 3 ML AMPUL.NEB NEB SCH ×4 (00:29→19:15)
[2023-07-31] MEDS: LEVOTHYROXINE SODIUM 112 MCG TABLET PO SCH (06:30)
[2023-07-31] MEDS: HYDROGEN PEROXIDE 3% 118 ML BOTTLE TP SCH ×2 (08:11→19:15)
[2023-07-31] MEDS: BUDESONIDE 0.5 MG/2 ML NEBU NEB SCH ×2 (08:11→19:15)
[2023-07-31] MEDS: levETIRAcetam 500 MG/5 ML LIQUID UDC PO SCH ×2 (09:00→17:00)
[2023-07-31] MEDS: VITAMINS A AND D 5 GM UD PKT TP SCH ×2 (09:00→21:12)
[2023-07-31] MEDS: REMEDY ESSENTIAL ZINC PASTE 113 GM TP SCH ×2 (09:00→21:12)
[2023-07-31] MEDS: TOLTERODINE 1 MG TABLET PO SCH ×2 (09:00→17:00)
[2023-07-31] MEDS: FOLIC ACID 1 MG TABLET PO SCH (09:00)
[2023-07-31] MEDS: FERROUS SULFATE 325 MG TABEC PO SCH (09:00)
[2023-07-31] MEDS: DORZOLAMIDE/TIMOLOL OPHT DROP 10 ML BOTTLE EACHEYE SCH ×2 (09:00→17:00)
[2023-07-31] MEDS: MIRALAX 17 GM POWD.PACK PO SCH ×2 (09:00→17:00)
[2023-07-31] MEDS: MULTIVIT, IRON, MIN NO. 8, FA TABLET PO SCH (18:15)
[2023-07-31] MEDS: BENZONATATE 100 MG CAPSULE PO PRN (18:15)
[2023-07-31] MEDS: OMEGA-3 FATTY ACIDS/FISH OIL CAPSULE PO SCH (18:15)
[2023-07-31] MEDS: ASPIRIN 81 MG TAB.CHEW PO SCH (18:15)
[2023-07-31] MEDS: ATORVASTATIN 20 MG TABLET PO SCH (18:15)
[2023-07-31] MEDS: GUAIFENESIN SUGAR FREE 100 MG/5 ML UDC PO PRN (18:15)
[2023-07-31] MEDS: CHOLECALCIFEROL 1,000 UNIT TABLET PO SCH (18:15)
[2023-07-31] MEDS: MAGNESIUM OXIDE 400 MG TABLET PO SCH (18:15)
[2023-07-31] MEDS: LATANOPROST OPHT DROP 2.5 ML BOTTLE EACHEYE SCH (21:12)
[2023-08-01] VITALS (10 sets, daily range): TEMP 97.6–97.8; O2SAT 96–99
[2023-08-01] MEDS: IPRATROPIUM/ALBUTEROL SULFATE 3 ML AMPUL.NEB NEB SCH ×4 (01:07→19:28)
[2023-08-01] MEDS: LEVOTHYROXINE SODIUM 112 MCG TABLET PO SCH (05:55)
[2023-08-01] MEDS: BUDESONIDE 0.5 MG/2 ML NEBU NEB SCH ×2 (07:30→19:28)
[2023-08-01] MEDS: HYDROGEN PEROXIDE 3% 118 ML BOTTLE TP SCH ×2 (08:34→19:28)
[2023-08-01] MEDS: FOLIC ACID 1 MG TABLET PO SCH (09:38)
[2023-08-01] MEDS: levETIRAcetam 500 MG/5 ML LIQUID UDC PO SCH ×2 (09:38→16:51)
[2023-08-01] MEDS: TOLTERODINE 1 MG TABLET PO SCH ×2 (09:38→16:51)
[2023-08-01] MEDS: MIRALAX 17 GM POWD.PACK PO SCH ×2 (09:38→16:53)
[2023-08-01] MEDS: DORZOLAMIDE/TIMOLOL OPHT DROP 10 ML BOTTLE EACHEYE SCH ×2 (09:38→16:51)
[2023-08-01] MEDS: FERROUS SULFATE 325 MG TABEC PO SCH (09:38)
[2023-08-01] MEDS: VITAMINS A AND D 5 GM UD PKT TP SCH ×2 (09:39→20:45)
[2023-08-01] MEDS: REMEDY ESSENTIAL ZINC PASTE 113 GM TP SCH ×2 (09:39→20:45)
[2023-08-01] MEDS: BENZONATATE 100 MG CAPSULE PO PRN (09:40)
[2023-08-01] MEDS: GUAIFENESIN SUGAR FREE 100 MG/5 ML UDC PO PRN (09:40)
[2023-08-01] MEDS: CHOLECALCIFEROL 1,000 UNIT TABLET PO SCH (17:00)
[2023-08-01] MEDS: ATORVASTATIN 20 MG TABLET PO SCH (17:00)
[2023-08-01] MEDS: ASPIRIN 81 MG TAB.CHEW PO SCH (17:00)
[2023-08-01] MEDS: OMEGA-3 FATTY ACIDS/FISH OIL CAPSULE PO SCH (17:00)
[2023-08-01] MEDS: MAGNESIUM OXIDE 400 MG TABLET PO SCH (17:00)
[2023-08-01] MEDS: MULTIVIT, IRON, MIN NO. 8, FA TABLET PO SCH (17:00)
[2023-08-01] MEDS: LATANOPROST OPHT DROP 2.5 ML BOTTLE EACHEYE SCH (20:45)
[2023-08-02] VITALS (9 sets, daily range): TEMP 97.1–98.8; O2SAT 97–99
[2023-08-02] MEDS: IPRATROPIUM/ALBUTEROL SULFATE 3 ML AMPUL.NEB NEB SCH ×4 (01:18→19:39)
[2023-08-02] MEDS: LEVOTHYROXINE SODIUM 112 MCG TABLET PO SCH (06:42)
[2023-08-02] MEDS: BUDESONIDE 0.5 MG/2 ML NEBU NEB SCH ×2 (07:16→19:39)
[2023-08-02] MEDS: HYDROGEN PEROXIDE 3% 118 ML BOTTLE TP SCH ×2 (07:16→19:39)
[2023-08-02] MEDS: DORZOLAMIDE/TIMOLOL OPHT DROP 10 ML BOTTLE EACHEYE SCH ×2 (09:29→16:25)
[2023-08-02] MEDS: TOLTERODINE 1 MG TABLET PO SCH ×2 (09:30→16:26)
[2023-08-02] MEDS: FERROUS SULFATE 325 MG TABEC PO SCH (09:31)
[2023-08-02] MEDS: MIRALAX 17 GM POWD.PACK PO SCH ×2 (09:32→16:27)
[2023-08-02] MEDS: levETIRAcetam 500 MG/5 ML LIQUID UDC PO SCH ×2 (09:32→16:26)
[2023-08-02] MEDS: FOLIC ACID 1 MG TABLET PO SCH (09:32)
[2023-08-02] MEDS: REMEDY ESSENTIAL ZINC PASTE 113 GM TP SCH ×2 (09:32→20:14)
[2023-08-02] MEDS: VITAMINS A AND D 5 GM UD PKT TP SCH ×2 (09:32→20:14)
[2023-08-02] MEDS: MAGNESIUM OXIDE 400 MG TABLET PO SCH (17:07)
[2023-08-02] MEDS: MULTIVIT, IRON, MIN NO. 8, FA TABLET PO SCH (17:07)
[2023-08-02] MEDS: ATORVASTATIN 20 MG TABLET PO SCH (17:07)
[2023-08-02] MEDS: CHOLECALCIFEROL 1,000 UNIT TABLET PO SCH (17:07)
[2023-08-02] MEDS: OMEGA-3 FATTY ACIDS/FISH OIL CAPSULE PO SCH (17:07)
[2023-08-02] MEDS: ASPIRIN 81 MG TAB.CHEW PO SCH (17:07)
[2023-08-02] MEDS: LATANOPROST OPHT DROP 2.5 ML BOTTLE EACHEYE SCH (20:14)
[2023-08-03] VITALS (10 sets, daily range): TEMP 97.7–98; O2SAT 98–99
[2023-08-03] MEDS: IPRATROPIUM/ALBUTEROL SULFATE 3 ML AMPUL.NEB NEB SCH ×4 (01:20→19:09)
[2023-08-03] MEDS: LEVOTHYROXINE SODIUM 112 MCG TABLET PO SCH (05:34)
[2023-08-03] MEDS: BUDESONIDE 0.5 MG/2 ML NEBU NEB SCH ×2 (07:18→19:09)
[2023-08-03] MEDS: HYDROGEN PEROXIDE 3% 118 ML BOTTLE TP SCH ×2 (08:03→19:09)
[2023-08-03] MEDS: TOLTERODINE 1 MG TABLET PO SCH ×2 (08:52→17:04)
[2023-08-03] MEDS: FERROUS SULFATE 325 MG TABEC PO SCH (08:52)
[2023-08-03] MEDS: DORZOLAMIDE/TIMOLOL OPHT DROP 10 ML BOTTLE EACHEYE SCH ×2 (08:52→17:04)
[2023-08-03] MEDS: REMEDY ESSENTIAL ZINC PASTE 113 GM TP SCH ×2 (08:53→20:35)
[2023-08-03] MEDS: VITAMINS A AND D 5 GM UD PKT TP SCH ×2 (08:53→20:35)
[2023-08-03] MEDS: FOLIC ACID 1 MG TABLET PO SCH (08:53)
[2023-08-03] MEDS: MIRALAX 17 GM POWD.PACK PO SCH ×2 (08:53→17:04)
[2023-08-03] MEDS: levETIRAcetam 500 MG/5 ML LIQUID UDC PO SCH ×2 (08:53→17:04)
[2023-08-03] MEDS: GUAIFENESIN SUGAR FREE 100 MG/5 ML UDC PO PRN (08:54)
[2023-08-03] MEDS: BENZONATATE 100 MG CAPSULE PO PRN (08:54)
[2023-08-03] MEDS: ASPIRIN 81 MG TAB.CHEW PO SCH (17:04)
[2023-08-03] MEDS: ATORVASTATIN 20 MG TABLET PO SCH (17:04)
[2023-08-03] MEDS: OMEGA-3 FATTY ACIDS/FISH OIL CAPSULE PO SCH (17:04)
[2023-08-03] MEDS: MULTIVIT, IRON, MIN NO. 8, FA TABLET PO SCH (17:05)
[2023-08-03] MEDS: MAGNESIUM OXIDE 400 MG TABLET PO SCH (17:05)
[2023-08-03] MEDS: CHOLECALCIFEROL 1,000 UNIT TABLET PO SCH (17:05)
[2023-08-03] MEDS: LATANOPROST OPHT DROP 2.5 ML BOTTLE EACHEYE SCH (20:35)
[2023-08-04] VITALS (10 sets, daily range): TEMP 97.7–98.9; O2SAT 98–99
[2023-08-04] MEDS: IPRATROPIUM/ALBUTEROL SULFATE 3 ML AMPUL.NEB NEB SCH ×4 (01:24→19:04)
[2023-08-04] MEDS: LEVOTHYROXINE SODIUM 112 MCG TABLET PO SCH (06:01)
[2023-08-04] MEDS: HYDROGEN PEROXIDE 3% 118 ML BOTTLE TP SCH ×2 (07:08→19:04)
[2023-08-04] MEDS: BUDESONIDE 0.5 MG/2 ML NEBU NEB SCH ×2 (07:08→19:04)
[2023-08-04] MEDS: DORZOLAMIDE/TIMOLOL OPHT DROP 10 ML BOTTLE EACHEYE SCH ×2 (09:28→17:27)
[2023-08-04] MEDS: levETIRAcetam 500 MG/5 ML LIQUID UDC PO SCH ×2 (09:29→17:29)
[2023-08-04] MEDS: FERROUS SULFATE 325 MG TABEC PO SCH (09:29)
[2023-08-04] MEDS: FOLIC ACID 1 MG TABLET PO SCH (09:29)
[2023-08-04] MEDS: MIRALAX 17 GM POWD.PACK PO SCH ×2 (09:31→17:29)
[2023-08-04] MEDS: REMEDY ESSENTIAL ZINC PASTE 113 GM TP SCH ×2 (09:31→20:40)
[2023-08-04] MEDS: VITAMINS A AND D 5 GM UD PKT TP SCH ×2 (09:31→20:40)
[2023-08-04] MEDS: GUAIFENESIN SUGAR FREE 100 MG/5 ML UDC PO PRN ×2 (09:32→17:33)
[2023-08-04] MEDS: BENZONATATE 100 MG CAPSULE PO PRN ×2 (09:32→17:32)
[2023-08-04] MEDS: TOLTERODINE 1 MG TABLET PO SCH ×2 (09:33→17:28)
[2023-08-04] MEDS: ASPIRIN 81 MG TAB.CHEW PO SCH (17:30)
[2023-08-04] MEDS: ATORVASTATIN 20 MG TABLET PO SCH (17:30)
[2023-08-04] MEDS: MAGNESIUM OXIDE 400 MG TABLET PO SCH (17:30)
[2023-08-04] MEDS: OMEGA-3 FATTY ACIDS/FISH OIL CAPSULE PO SCH (17:30)
[2023-08-04] MEDS: CHOLECALCIFEROL 1,000 UNIT TABLET PO SCH (17:31)
[2023-08-04] MEDS: MULTIVIT, IRON, MIN NO. 8, FA TABLET PO SCH (17:31)
[2023-08-04] MEDS: LATANOPROST OPHT DROP 2.5 ML BOTTLE EACHEYE SCH (20:40)
[2023-08-05] VITALS (11 sets, daily range): TEMP 97.7–98.2; O2SAT 98–99
[2023-08-05] MEDS: IPRATROPIUM/ALBUTEROL SULFATE 3 ML AMPUL.NEB NEB SCH ×4 (01:09→19:07)
[2023-08-05] MEDS: LEVOTHYROXINE SODIUM 112 MCG TABLET PO SCH (06:05)
[2023-08-05] MEDS: REMEDY ESSENTIAL ZINC PASTE 113 GM TP SCH ×2 (08:11→21:00)
[2023-08-05] MEDS: BUDESONIDE 0.5 MG/2 ML NEBU NEB SCH ×2 (08:11→19:07)
[2023-08-05] MEDS: HYDROGEN PEROXIDE 3% 118 ML BOTTLE TP SCH ×2 (09:14→19:07)
[2023-08-05] MEDS: TOLTERODINE 1 MG TABLET PO SCH ×2 (09:28→16:56)
[2023-08-05] MEDS: DORZOLAMIDE/TIMOLOL OPHT DROP 10 ML BOTTLE EACHEYE SCH ×2 (09:28→16:56)
[2023-08-05] MEDS: FERROUS SULFATE 325 MG TABEC PO SCH (09:29)
[2023-08-05] MEDS: FOLIC ACID 1 MG TABLET PO SCH (09:29)
[2023-08-05] MEDS: BENZONATATE 100 MG CAPSULE PO PRN ×2 (09:31→17:01)
[2023-08-05] MEDS: VITAMINS A AND D 5 GM UD PKT TP SCH ×2 (09:31→21:00)
[2023-08-05] MEDS: levETIRAcetam 500 MG/5 ML LIQUID UDC PO SCH ×2 (09:31→16:57)
[2023-08-05] MEDS: GUAIFENESIN SUGAR FREE 100 MG/5 ML UDC PO PRN ×2 (09:31→17:01)
[2023-08-05] MEDS: MIRALAX 17 GM POWD.PACK PO SCH ×2 (09:31→16:58)
[2023-08-05] MEDS: OMEGA-3 FATTY ACIDS/FISH OIL CAPSULE PO SCH (17:06)
[2023-08-05] MEDS: ASPIRIN 81 MG TAB.CHEW PO SCH (17:06)
[2023-08-05] MEDS: MULTIVIT, IRON, MIN NO. 8, FA TABLET PO SCH (17:07)
[2023-08-05] MEDS: ATORVASTATIN 20 MG TABLET PO SCH (17:07)
[2023-08-05] MEDS: MAGNESIUM OXIDE 400 MG TABLET PO SCH (17:07)
[2023-08-05] MEDS: CHOLECALCIFEROL 1,000 UNIT TABLET PO SCH (17:07)
[2023-08-05] MEDS: LATANOPROST OPHT DROP 2.5 ML BOTTLE EACHEYE SCH (20:53)
[2023-08-06] VITALS (10 sets, daily range): TEMP 97.8–98.4; O2SAT 97–99
[2023-08-06] MEDS: IPRATROPIUM/ALBUTEROL SULFATE 3 ML AMPUL.NEB NEB SCH ×4 (00:30→19:15)
[2023-08-06] MEDS: LEVOTHYROXINE SODIUM 112 MCG TABLET PO SCH (06:38)
[2023-08-06] MEDS: BUDESONIDE 0.5 MG/2 ML NEBU NEB SCH ×2 (07:19→19:15)
[2023-08-06] MEDS: HYDROGEN PEROXIDE 3% 118 ML BOTTLE TP SCH ×2 (07:19→19:15)
[2023-08-06] MEDS: DORZOLAMIDE/TIMOLOL OPHT DROP 10 ML BOTTLE EACHEYE SCH ×2 (09:32→17:05)
[2023-08-06] MEDS: FOLIC ACID 1 MG TABLET PO SCH (09:32)
[2023-08-06] MEDS: TOLTERODINE 1 MG TABLET PO SCH ×2 (09:34→17:05)
[2023-08-06] MEDS: FERROUS SULFATE 325 MG TABEC PO SCH (09:34)
[2023-08-06] MEDS: MIRALAX 17 GM POWD.PACK PO SCH ×2 (09:34→17:08)
[2023-08-06] MEDS: levETIRAcetam 500 MG/5 ML LIQUID UDC PO SCH ×2 (09:34→17:06)
[2023-08-06] MEDS: VITAMINS A AND D 5 GM UD PKT TP SCH ×2 (09:35→21:00)
[2023-08-06] MEDS: REMEDY ESSENTIAL ZINC PASTE 113 GM TP SCH ×2 (09:35→21:00)
[2023-08-06] MEDS: GUAIFENESIN SUGAR FREE 100 MG/5 ML UDC PO PRN ×2 (09:37→17:14)
[2023-08-06] MEDS: BENZONATATE 100 MG CAPSULE PO PRN ×2 (09:37→17:14)
[2023-08-06] MEDS: OMEGA-3 FATTY ACIDS/FISH OIL CAPSULE PO SCH (17:09)
[2023-08-06] MEDS: ASPIRIN 81 MG TAB.CHEW PO SCH (17:09)
[2023-08-06] MEDS: ATORVASTATIN 20 MG TABLET PO SCH (17:12)
[2023-08-06] MEDS: CHOLECALCIFEROL 1,000 UNIT TABLET PO SCH (17:13)
[2023-08-06] MEDS: MULTIVIT, IRON, MIN NO. 8, FA TABLET PO SCH (17:13)
[2023-08-06] MEDS: MAGNESIUM OXIDE 400 MG TABLET PO SCH (17:13)
[2023-08-06] MEDS: LATANOPROST OPHT DROP 2.5 ML BOTTLE EACHEYE SCH (21:00)
[2023-08-07] VITALS (11 sets, daily range): TEMP 97.7–98.2; O2SAT 98–99
[2023-08-07] MEDS: IPRATROPIUM/ALBUTEROL SULFATE 3 ML AMPUL.NEB NEB SCH ×4 (01:24→19:26)
[2023-08-07] MEDS: LEVOTHYROXINE SODIUM 112 MCG TABLET PO SCH (06:40)
[2023-08-07] MEDS: BUDESONIDE 0.5 MG/2 ML NEBU NEB SCH ×2 (07:55→19:26)
[2023-08-07] MEDS: HYDROGEN PEROXIDE 3% 118 ML BOTTLE TP SCH ×2 (07:55→19:26)
[2023-08-07] MEDS: DORZOLAMIDE/TIMOLOL OPHT DROP 10 ML BOTTLE EACHEYE SCH ×2 (08:48→17:50)
[2023-08-07] MEDS: FOLIC ACID 1 MG TABLET PO SCH (08:50)
[2023-08-07] MEDS: FERROUS SULFATE 325 MG TABEC PO SCH (08:50)
[2023-08-07] MEDS: levETIRAcetam 500 MG/5 ML LIQUID UDC PO SCH ×2 (08:50→17:52)
[2023-08-07] MEDS: TOLTERODINE 1 MG TABLET PO SCH ×2 (08:50→17:51)
[2023-08-07] MEDS: MIRALAX 17 GM POWD.PACK PO SCH ×2 (08:52→17:52)
[2023-08-07] MEDS: VITAMINS A AND D 5 GM UD PKT TP SCH ×2 (08:53→20:13)
[2023-08-07] MEDS: BENZONATATE 100 MG CAPSULE PO PRN ×2 (08:53→17:55)
[2023-08-07] MEDS: REMEDY ESSENTIAL ZINC PASTE 113 GM TP SCH ×2 (08:53→20:13)
[2023-08-07] MEDS: GUAIFENESIN SUGAR FREE 100 MG/5 ML UDC PO PRN ×2 (08:54→17:55)
[2023-08-07] MEDS: ATORVASTATIN 20 MG TABLET PO SCH (17:51)
[2023-08-07] MEDS: ASPIRIN 81 MG TAB.CHEW PO SCH (17:53)
[2023-08-07] MEDS: OMEGA-3 FATTY ACIDS/FISH OIL CAPSULE PO SCH (17:53)
[2023-08-07] MEDS: MAGNESIUM OXIDE 400 MG TABLET PO SCH (17:54)
[2023-08-07] MEDS: MULTIVIT, IRON, MIN NO. 8, FA TABLET PO SCH (17:54)
[2023-08-07] MEDS: CHOLECALCIFEROL 1,000 UNIT TABLET PO SCH (17:55)
[2023-08-07] MEDS: LATANOPROST OPHT DROP 2.5 ML BOTTLE EACHEYE SCH (20:13)
[2023-08-08] VITALS (10 sets, daily range): TEMP 97.9–98.4; O2SAT 97–99
[2023-08-08] MEDS: IPRATROPIUM/ALBUTEROL SULFATE 3 ML AMPUL.NEB NEB SCH ×4 (01:06→19:05)
[2023-08-08] MEDS: LEVOTHYROXINE SODIUM 112 MCG TABLET PO SCH (06:25)
[2023-08-08] MEDS: HYDROGEN PEROXIDE 3% 118 ML BOTTLE TP SCH ×2 (07:42→21:18)
[2023-08-08] MEDS: BUDESONIDE 0.5 MG/2 ML NEBU NEB SCH ×2 (07:42→19:05)
[2023-08-08] MEDS: DORZOLAMIDE/TIMOLOL OPHT DROP 10 ML BOTTLE EACHEYE SCH ×2 (09:49→17:45)
[2023-08-08] MEDS: TOLTERODINE 1 MG TABLET PO SCH ×2 (09:49→17:45)
[2023-08-08] MEDS: FOLIC ACID 1 MG TABLET PO SCH (09:49)
[2023-08-08] MEDS: FERROUS SULFATE 325 MG TABEC PO SCH (09:49)
[2023-08-08] MEDS: MIRALAX 17 GM POWD.PACK PO SCH ×2 (09:50→17:46)
[2023-08-08] MEDS: levETIRAcetam 500 MG/5 ML LIQUID UDC PO SCH ×2 (09:50→17:45)
[2023-08-08] MEDS: BENZONATATE 100 MG CAPSULE PO PRN ×2 (09:51→17:49)
[2023-08-08] MEDS: GUAIFENESIN SUGAR FREE 100 MG/5 ML UDC PO PRN ×2 (09:51→17:50)
[2023-08-08] MEDS: REMEDY ESSENTIAL ZINC PASTE 113 GM TP SCH ×2 (09:51→21:00)
[2023-08-08] MEDS: VITAMINS A AND D 5 GM UD PKT TP SCH ×2 (09:51→21:00)
[2023-08-08] MEDS: ASPIRIN 81 MG TAB.CHEW PO SCH (17:46)
[2023-08-08] MEDS: ATORVASTATIN 20 MG TABLET PO SCH (17:47)
[2023-08-08] MEDS: OMEGA-3 FATTY ACIDS/FISH OIL CAPSULE PO SCH (17:47)
[2023-08-08] MEDS: MAGNESIUM OXIDE 400 MG TABLET PO SCH (17:47)
[2023-08-08] MEDS: MULTIVIT, IRON, MIN NO. 8, FA TABLET PO SCH (17:48)
[2023-08-08] MEDS: CHOLECALCIFEROL 1,000 UNIT TABLET PO SCH (17:49)
[2023-08-08] MEDS: LATANOPROST OPHT DROP 2.5 ML BOTTLE EACHEYE SCH (21:00)
[2023-08-09] VITALS (11 sets, daily range): TEMP 98–98.2; O2SAT 98–99
[2023-08-09] MEDS: IPRATROPIUM/ALBUTEROL SULFATE 3 ML AMPUL.NEB NEB SCH ×4 (01:47→19:16)
[2023-08-09] MEDS: LEVOTHYROXINE SODIUM 112 MCG TABLET PO SCH (06:24)
[2023-08-09] MEDS: BUDESONIDE 0.5 MG/2 ML NEBU NEB SCH ×2 (07:35→19:17)
[2023-08-09] MEDS: HYDROGEN PEROXIDE 3% 118 ML BOTTLE TP SCH ×2 (07:35→19:17)
[2023-08-09] MEDS: DORZOLAMIDE/TIMOLOL OPHT DROP 10 ML BOTTLE EACHEYE SCH ×2 (08:47→17:02)
[2023-08-09] MEDS: FERROUS SULFATE 325 MG TABEC PO SCH (08:48)
[2023-08-09] MEDS: levETIRAcetam 500 MG/5 ML LIQUID UDC PO SCH ×2 (08:48→17:02)
[2023-08-09] MEDS: TOLTERODINE 1 MG TABLET PO SCH ×2 (08:48→17:02)
[2023-08-09] MEDS: FOLIC ACID 1 MG TABLET PO SCH (08:48)
[2023-08-09] MEDS: VITAMINS A AND D 5 GM UD PKT TP SCH ×2 (08:49→20:15)
[2023-08-09] MEDS: REMEDY ESSENTIAL ZINC PASTE 113 GM TP SCH ×2 (08:49→20:15)
[2023-08-09] MEDS: MIRALAX 17 GM POWD.PACK PO SCH ×2 (08:49→17:02)
[2023-08-09] MEDS: MULTIVIT, IRON, MIN NO. 8, FA TABLET PO SCH (17:02)
[2023-08-09] MEDS: ASPIRIN 81 MG TAB.CHEW PO SCH (17:02)
[2023-08-09] MEDS: CHOLECALCIFEROL 1,000 UNIT TABLET PO SCH (17:02)
[2023-08-09] MEDS: OMEGA-3 FATTY ACIDS/FISH OIL CAPSULE PO SCH (17:02)
[2023-08-09] MEDS: BENZONATATE 100 MG CAPSULE PO PRN (17:02)
[2023-08-09] MEDS: ATORVASTATIN 20 MG TABLET PO SCH (17:02)
[2023-08-09] MEDS: GUAIFENESIN SUGAR FREE 100 MG/5 ML UDC PO PRN (17:02)
[2023-08-09] MEDS: MAGNESIUM OXIDE 400 MG TABLET PO SCH (17:02)
[2023-08-09] MEDS: LATANOPROST OPHT DROP 2.5 ML BOTTLE EACHEYE SCH (20:15)
[2023-08-10] VITALS (9 sets, daily range): TEMP 98.3; O2SAT 97–99
[2023-08-10] MEDS: IPRATROPIUM/ALBUTEROL SULFATE 3 ML AMPUL.NEB NEB SCH ×4 (01:18→19:02)
[2023-08-10] MEDS: LEVOTHYROXINE SODIUM 112 MCG TABLET PO SCH (05:35)
[2023-08-10] MEDS: BUDESONIDE 0.5 MG/2 ML NEBU NEB SCH ×2 (07:08→19:02)
[2023-08-10] MEDS: TOLTERODINE 1 MG TABLET PO SCH ×2 (08:54→17:45)
[2023-08-10] MEDS: DORZOLAMIDE/TIMOLOL OPHT DROP 10 ML BOTTLE EACHEYE SCH ×2 (08:54→17:45)
[2023-08-10] MEDS: levETIRAcetam 500 MG/5 ML LIQUID UDC PO SCH ×2 (08:57→17:45)
[2023-08-10] MEDS: FOLIC ACID 1 MG TABLET PO SCH (08:57)
[2023-08-10] MEDS: FERROUS SULFATE 325 MG TABEC PO SCH (08:57)
[2023-08-10] MEDS: MIRALAX 17 GM POWD.PACK PO SCH ×2 (08:57→17:45)
[2023-08-10] MEDS: BENZONATATE 100 MG CAPSULE PO PRN ×2 (08:59→18:24)
[2023-08-10] MEDS: REMEDY ESSENTIAL ZINC PASTE 113 GM TP SCH ×2 (08:59→20:03)
[2023-08-10] MEDS: GUAIFENESIN SUGAR FREE 100 MG/5 ML UDC PO PRN ×2 (08:59→18:24)
[2023-08-10] MEDS: VITAMINS A AND D 5 GM UD PKT TP SCH ×2 (08:59→20:03)
[2023-08-10] MEDS: HYDROGEN PEROXIDE 3% 118 ML BOTTLE TP SCH ×2 (09:21→19:03)
[2023-08-10] MEDS: MAGNESIUM OXIDE 400 MG TABLET PO SCH (17:45)
[2023-08-10] MEDS: ATORVASTATIN 20 MG TABLET PO SCH (17:45)
[2023-08-10] MEDS: CHOLECALCIFEROL 1,000 UNIT TABLET PO SCH (17:45)
[2023-08-10] MEDS: MULTIVIT, IRON, MIN NO. 8, FA TABLET PO SCH (17:45)
[2023-08-10] MEDS: OMEGA-3 FATTY ACIDS/FISH OIL CAPSULE PO SCH (17:45)
[2023-08-10] MEDS: ASPIRIN 81 MG TAB.CHEW PO SCH (17:45)
[2023-08-10] MEDS: LATANOPROST OPHT DROP 2.5 ML BOTTLE EACHEYE SCH (20:03)
[2023-08-11] VITALS (11 sets, daily range): TEMP 97.7–98.3; O2SAT 98–99
[2023-08-11] MEDS: IPRATROPIUM/ALBUTEROL SULFATE 3 ML AMPUL.NEB NEB SCH ×4 (00:30→18:47)
[2023-08-11] MEDS: LEVOTHYROXINE SODIUM 112 MCG TABLET PO SCH (05:58)
[2023-08-11 07:12] LABS: BASOPHILS % (AUTO) 0.7 % (0.0-2.0); EOSINOPHILS # (AUTO) 0.2 K/uL (0.0-0.7); EOSINOPHILS % (AUTO) 3.5 % (0.0-7.0); HEMATOCRIT 33.8 % (31.2-41.9); HEMOGLOBIN 11.3 g/dL (10.9-14.3); LYMPHOCYTES # (AUTO) 1.4 K/uL (0.8-4.8); LYMPHOCYTES % (AUTO) 27.8 % (20.5-51.5); MEAN CORPUSCULAR HEMOGLOBIN 29.4 uug (24.7-32.8); MEAN CORPUSCULAR HGB CONC 34 g/dL (32.3-35.6); MEAN CORPUSCULAR VOLUME 87.8 fL (75.5-95.3); MONOCYTES # (AUTO) 0.6 K/uL (0.1-1.30); MONOCYTES % (AUTO) 12.3 % (0.0-11.0); NEUTROPHILS # (AUTO) 2.8 K/uL (1.8-8.9); NEUTROPHILS % (AUTO) 55.7 % (38.5-71.5); PLATELET COUNT (AUTO) 211 K/uL (179-408); RED BLOOD CELL COUNT(AUTO) 3.85 MIL/uL (3.63-4.92); RED CELL DISTRIBUTION WIDTH 15.2 % (12.3-17.7); WHITE BLOOD COUNT (AUTO) 5.1 K/uL (3.8-11.8)
[2023-08-11 07:29] LABS: DIFFERENTIAL COMMENT 1
[2023-08-11] MEDS: HYDROGEN PEROXIDE 3% 118 ML BOTTLE TP SCH ×2 (07:43→18:47)
[2023-08-11] MEDS: BUDESONIDE 0.5 MG/2 ML NEBU NEB SCH ×2 (07:43→18:47)
[2023-08-11 07:57] LABS: CALCIUM 9.3 mg/dL (8.5-10.1); CARBON DIOXIDE 35 mmol/L (21-32); CHLORIDE 97 mmol/L (98-107); CREATININE 0.6 mg/dL (0.6-1.3); GLUCOSE 97 mg/dL (74-106); PHOSPHOROUS 4.3 mg/dL (2.5-4.9); POTASSIUM 4.1 mmol/L (3.5-5.1); SODIUM SERUM 136 mmol/L (136-145); UREA NITROGEN, BLOOD 13 mg/dL (7-18)
[2023-08-11] MEDS: FERROUS SULFATE 325 MG TABEC PO SCH (09:57)
[2023-08-11] MEDS: TOLTERODINE 1 MG TABLET PO SCH ×2 (09:57→17:44)
[2023-08-11] MEDS: FOLIC ACID 1 MG TABLET PO SCH (09:57)
[2023-08-11] MEDS: levETIRAcetam 500 MG/5 ML LIQUID UDC PO SCH ×2 (09:57→17:46)
[2023-08-11] MEDS: DORZOLAMIDE/TIMOLOL OPHT DROP 10 ML BOTTLE EACHEYE SCH ×2 (09:57→17:42)
[2023-08-11] MEDS: REMEDY ESSENTIAL ZINC PASTE 113 GM TP SCH ×2 (09:58→20:50)
[2023-08-11] MEDS: BENZONATATE 100 MG CAPSULE PO PRN ×2 (09:58→17:50)
[2023-08-11] MEDS: MIRALAX 17 GM POWD.PACK PO SCH ×2 (09:58→17:46)
[2023-08-11] MEDS: VITAMINS A AND D 5 GM UD PKT TP SCH ×2 (09:58→20:50)
[2023-08-11] MEDS: GUAIFENESIN SUGAR FREE 100 MG/5 ML UDC PO PRN ×2 (09:58→17:51)
[2023-08-11] MEDS: OMEGA-3 FATTY ACIDS/FISH OIL CAPSULE PO SCH (17:47)
[2023-08-11] MEDS: ASPIRIN 81 MG TAB.CHEW PO SCH (17:47)
[2023-08-11] MEDS: ATORVASTATIN 20 MG TABLET PO SCH (17:48)
[2023-08-11] MEDS: MAGNESIUM OXIDE 400 MG TABLET PO SCH (17:49)
[2023-08-11] MEDS: MULTIVIT, IRON, MIN NO. 8, FA TABLET PO SCH (17:50)
[2023-08-11] MEDS: CHOLECALCIFEROL 1,000 UNIT TABLET PO SCH (17:50)
[2023-08-11] MEDS: LATANOPROST OPHT DROP 2.5 ML BOTTLE EACHEYE SCH (20:50)
[2023-08-12] VITALS (10 sets, daily range): TEMP 97.8–98.3; O2SAT 96–99
[2023-08-12] MEDS: IPRATROPIUM/ALBUTEROL SULFATE 3 ML AMPUL.NEB NEB SCH ×4 (01:35→19:14)
[2023-08-12] MEDS: LEVOTHYROXINE SODIUM 112 MCG TABLET PO SCH (06:01)
[2023-08-12] MEDS: BUDESONIDE 0.5 MG/2 ML NEBU NEB SCH ×2 (07:31→19:14)
[2023-08-12] MEDS: HYDROGEN PEROXIDE 3% 118 ML BOTTLE TP SCH ×2 (07:31→19:14)
[2023-08-12] MEDS: DORZOLAMIDE/TIMOLOL OPHT DROP 10 ML BOTTLE EACHEYE SCH ×2 (09:12→16:38)
[2023-08-12] MEDS: TOLTERODINE 1 MG TABLET PO SCH ×2 (09:12→16:38)
[2023-08-12] MEDS: FOLIC ACID 1 MG TABLET PO SCH (09:13)
[2023-08-12] MEDS: levETIRAcetam 500 MG/5 ML LIQUID UDC PO SCH ×2 (09:13→16:39)
[2023-08-12] MEDS: FERROUS SULFATE 325 MG TABEC PO SCH (09:13)
[2023-08-12] MEDS: VITAMINS A AND D 5 GM UD PKT TP SCH ×2 (09:14→21:23)
[2023-08-12] MEDS: BENZONATATE 100 MG CAPSULE PO PRN ×2 (09:14→17:10)
[2023-08-12] MEDS: MIRALAX 17 GM POWD.PACK PO SCH ×2 (09:14→16:40)
[2023-08-12] MEDS: REMEDY ESSENTIAL ZINC PASTE 113 GM TP SCH ×2 (09:14→21:23)
[2023-08-12] MEDS: GUAIFENESIN SUGAR FREE 100 MG/5 ML UDC PO PRN ×2 (09:15→17:11)
[2023-08-12] MEDS: MULTIVIT, IRON, MIN NO. 8, FA TABLET PO SCH (17:10)
[2023-08-12] MEDS: ASPIRIN 81 MG TAB.CHEW PO SCH (17:10)
[2023-08-12] MEDS: ATORVASTATIN 20 MG TABLET PO SCH (17:10)
[2023-08-12] MEDS: OMEGA-3 FATTY ACIDS/FISH OIL CAPSULE PO SCH (17:10)
[2023-08-12] MEDS: MAGNESIUM OXIDE 400 MG TABLET PO SCH (17:10)
[2023-08-12] MEDS: CHOLECALCIFEROL 1,000 UNIT TABLET PO SCH (17:10)
[2023-08-12] MEDS: LATANOPROST OPHT DROP 2.5 ML BOTTLE EACHEYE SCH (21:23)
[2023-08-13] VITALS (10 sets, daily range): TEMP 97.6–98.2; O2SAT 97–99
[2023-08-13] MEDS: IPRATROPIUM/ALBUTEROL SULFATE 3 ML AMPUL.NEB NEB SCH ×4 (02:21→19:08)
[2023-08-13] MEDS: LEVOTHYROXINE SODIUM 112 MCG TABLET PO SCH (06:07)
[2023-08-13] MEDS: BUDESONIDE 0.5 MG/2 ML NEBU NEB SCH ×2 (07:39→19:09)
[2023-08-13] MEDS: HYDROGEN PEROXIDE 3% 118 ML BOTTLE TP SCH ×2 (08:17→19:09)
[2023-08-13] MEDS: DORZOLAMIDE/TIMOLOL OPHT DROP 10 ML BOTTLE EACHEYE SCH ×2 (09:41→17:06)
[2023-08-13] MEDS: FOLIC ACID 1 MG TABLET PO SCH (09:43)
[2023-08-13] MEDS: TOLTERODINE 1 MG TABLET PO SCH ×2 (09:43→17:06)
[2023-08-13] MEDS: FERROUS SULFATE 325 MG TABEC PO SCH (09:43)
[2023-08-13] MEDS: levETIRAcetam 500 MG/5 ML LIQUID UDC PO SCH ×2 (09:43→17:11)
[2023-08-13] MEDS: MIRALAX 17 GM POWD.PACK PO SCH ×2 (09:44→17:12)
[2023-08-13] MEDS: REMEDY ESSENTIAL ZINC PASTE 113 GM TP SCH ×2 (09:45→21:03)
[2023-08-13] MEDS: BENZONATATE 100 MG CAPSULE PO PRN ×2 (09:45→17:16)
[2023-08-13] MEDS: VITAMINS A AND D 5 GM UD PKT TP SCH ×2 (09:45→21:03)
[2023-08-13] MEDS: GUAIFENESIN SUGAR FREE 100 MG/5 ML UDC PO PRN ×2 (09:45→17:16)
[2023-08-13] MEDS: ASPIRIN 81 MG TAB.CHEW PO SCH (17:13)
[2023-08-13] MEDS: ATORVASTATIN 20 MG TABLET PO SCH (17:13)
[2023-08-13] MEDS: OMEGA-3 FATTY ACIDS/FISH OIL CAPSULE PO SCH (17:13)
[2023-08-13] MEDS: MAGNESIUM OXIDE 400 MG TABLET PO SCH (17:13)
[2023-08-13] MEDS: MULTIVIT, IRON, MIN NO. 8, FA TABLET PO SCH (17:14)
[2023-08-13] MEDS: CHOLECALCIFEROL 1,000 UNIT TABLET PO SCH (17:14)
[2023-08-13] MEDS: LATANOPROST OPHT DROP 2.5 ML BOTTLE EACHEYE SCH (21:03)
[2023-08-14] VITALS (10 sets, daily range): TEMP 97.4–98.8; O2SAT 97–99
[2023-08-14] MEDS: IPRATROPIUM/ALBUTEROL SULFATE 3 ML AMPUL.NEB NEB SCH ×4 (00:43→19:05)
[2023-08-14] MEDS: BENZONATATE 100 MG CAPSULE PO PRN ×3 (01:00→17:20)
[2023-08-14] MEDS: LEVOTHYROXINE SODIUM 112 MCG TABLET PO SCH (06:03)
[2023-08-14] MEDS: BUDESONIDE 0.5 MG/2 ML NEBU NEB SCH ×2 (07:18→19:05)
[2023-08-14] MEDS: HYDROGEN PEROXIDE 3% 118 ML BOTTLE TP SCH ×2 (07:18→19:05)
[2023-08-14] MEDS: DORZOLAMIDE/TIMOLOL OPHT DROP 10 ML BOTTLE EACHEYE SCH ×2 (08:50→17:11)
[2023-08-14] MEDS: FOLIC ACID 1 MG TABLET PO SCH (08:51)
[2023-08-14] MEDS: MIRALAX 17 GM POWD.PACK PO SCH ×2 (08:51→17:11)
[2023-08-14] MEDS: FERROUS SULFATE 325 MG TABEC PO SCH (08:51)
[2023-08-14] MEDS: TOLTERODINE 1 MG TABLET PO SCH ×2 (08:51→17:11)
[2023-08-14] MEDS: levETIRAcetam 500 MG/5 ML LIQUID UDC PO SCH ×2 (08:51→17:11)
[2023-08-14] MEDS: REMEDY ESSENTIAL ZINC PASTE 113 GM TP SCH ×2 (08:52→21:20)
[2023-08-14] MEDS: VITAMINS A AND D 5 GM UD PKT TP SCH ×2 (08:52→21:20)
[2023-08-14] MEDS: GUAIFENESIN SUGAR FREE 100 MG/5 ML UDC PO PRN ×2 (08:53→17:20)
[2023-08-14] MEDS: ASPIRIN 81 MG TAB.CHEW PO SCH (17:12)
[2023-08-14] MEDS: OMEGA-3 FATTY ACIDS/FISH OIL CAPSULE PO SCH (17:12)
[2023-08-14] MEDS: ATORVASTATIN 20 MG TABLET PO SCH (17:13)
[2023-08-14] MEDS: MAGNESIUM OXIDE 400 MG TABLET PO SCH (17:13)
[2023-08-14] MEDS: MULTIVIT, IRON, MIN NO. 8, FA TABLET PO SCH (17:14)
[2023-08-14] MEDS: CHOLECALCIFEROL 1,000 UNIT TABLET PO SCH (17:14)
[2023-08-14] MEDS: LATANOPROST OPHT DROP 2.5 ML BOTTLE EACHEYE SCH (21:19)
[2023-08-15] VITALS (10 sets, daily range): TEMP 97.6–98.2; O2SAT 97–99
[2023-08-15] MEDS: IPRATROPIUM/ALBUTEROL SULFATE 3 ML AMPUL.NEB NEB SCH ×4 (00:34→19:10)
[2023-08-15] MEDS: LEVOTHYROXINE SODIUM 112 MCG TABLET PO SCH (05:34)
[2023-08-15] MEDS: HYDROGEN PEROXIDE 3% 118 ML BOTTLE TP SCH ×2 (07:56→19:10)
[2023-08-15] MEDS: BUDESONIDE 0.5 MG/2 ML NEBU NEB SCH ×2 (07:56→19:10)
[2023-08-15] MEDS: DORZOLAMIDE/TIMOLOL OPHT DROP 10 ML BOTTLE EACHEYE SCH ×2 (08:07→17:25)
[2023-08-15] MEDS: TOLTERODINE 1 MG TABLET PO SCH ×2 (08:09→17:25)
[2023-08-15] MEDS: FOLIC ACID 1 MG TABLET PO SCH (08:10)
[2023-08-15] MEDS: FERROUS SULFATE 325 MG TABEC PO SCH (08:10)
[2023-08-15] MEDS: MIRALAX 17 GM POWD.PACK PO SCH ×2 (08:12→17:25)
[2023-08-15] MEDS: levETIRAcetam 500 MG/5 ML LIQUID UDC PO SCH ×2 (08:12→17:25)
[2023-08-15] MEDS: VITAMINS A AND D 5 GM UD PKT TP SCH ×2 (08:13→21:31)
[2023-08-15] MEDS: REMEDY ESSENTIAL ZINC PASTE 113 GM TP SCH ×2 (08:13→21:31)
[2023-08-15] MEDS: BENZONATATE 100 MG CAPSULE PO PRN ×2 (08:14→17:25)
[2023-08-15] MEDS: GUAIFENESIN SUGAR FREE 100 MG/5 ML UDC PO PRN ×2 (08:14→17:25)
[2023-08-15] MEDS: MAGNESIUM OXIDE 400 MG TABLET PO SCH (17:25)
[2023-08-15] MEDS: OMEGA-3 FATTY ACIDS/FISH OIL CAPSULE PO SCH (17:25)
[2023-08-15] MEDS: ATORVASTATIN 20 MG TABLET PO SCH (17:25)
[2023-08-15] MEDS: ASPIRIN 81 MG TAB.CHEW PO SCH (17:25)
[2023-08-15] MEDS: CHOLECALCIFEROL 1,000 UNIT TABLET PO SCH (17:25)
[2023-08-15] MEDS: MULTIVIT, IRON, MIN NO. 8, FA TABLET PO SCH (17:25)
[2023-08-15] MEDS: LATANOPROST OPHT DROP 2.5 ML BOTTLE EACHEYE SCH (21:31)
[2023-08-16] VITALS (10 sets, daily range): TEMP 97.4–98.7; O2SAT 97–99
[2023-08-16] MEDS: IPRATROPIUM/ALBUTEROL SULFATE 3 ML AMPUL.NEB NEB SCH ×4 (01:06→19:17)
[2023-08-16] MEDS: LEVOTHYROXINE SODIUM 112 MCG TABLET PO SCH (06:14)
[2023-08-16] MEDS: HYDROGEN PEROXIDE 3% 118 ML BOTTLE TP SCH ×2 (07:08→23:00)
[2023-08-16] MEDS: BUDESONIDE 0.5 MG/2 ML NEBU NEB SCH ×2 (07:08→19:17)
[2023-08-16] MEDS: TOLTERODINE 1 MG TABLET PO SCH ×2 (09:09→17:00)
[2023-08-16] MEDS: DORZOLAMIDE/TIMOLOL OPHT DROP 10 ML BOTTLE EACHEYE SCH ×2 (09:09→17:00)
[2023-08-16] MEDS: FERROUS SULFATE 325 MG TABEC PO SCH (09:10)
[2023-08-16] MEDS: FOLIC ACID 1 MG TABLET PO SCH (09:11)
[2023-08-16] MEDS: levETIRAcetam 500 MG/5 ML LIQUID UDC PO SCH ×2 (09:11→17:00)
[2023-08-16] MEDS: MIRALAX 17 GM POWD.PACK PO SCH ×2 (09:12→17:00)
[2023-08-16] MEDS: VITAMINS A AND D 5 GM UD PKT TP SCH ×2 (09:12→20:36)
[2023-08-16] MEDS: REMEDY ESSENTIAL ZINC PASTE 113 GM TP SCH ×2 (09:12→20:36)
[2023-08-16] MEDS: BENZONATATE 100 MG CAPSULE PO PRN ×2 (09:13→18:10)
[2023-08-16] MEDS: GUAIFENESIN SUGAR FREE 100 MG/5 ML UDC PO PRN ×2 (09:13→18:10)
[2023-08-16] MEDS: MULTIVIT, IRON, MIN NO. 8, FA TABLET PO SCH (18:10)
[2023-08-16] MEDS: CHOLECALCIFEROL 1,000 UNIT TABLET PO SCH (18:10)
[2023-08-16] MEDS: MAGNESIUM OXIDE 400 MG TABLET PO SCH (18:10)
[2023-08-16] MEDS: OMEGA-3 FATTY ACIDS/FISH OIL CAPSULE PO SCH (18:10)
[2023-08-16] MEDS: ASPIRIN 81 MG TAB.CHEW PO SCH (18:10)
[2023-08-16] MEDS: ATORVASTATIN 20 MG TABLET PO SCH (18:11)
[2023-08-16] MEDS: LATANOPROST OPHT DROP 2.5 ML BOTTLE EACHEYE SCH (20:36)
[2023-08-17] VITALS (10 sets, daily range): TEMP 97.5–97.7; O2SAT 96–99
[2023-08-17] MEDS: IPRATROPIUM/ALBUTEROL SULFATE 3 ML AMPUL.NEB NEB SCH ×4 (01:18→19:07)
[2023-08-17] MEDS: LEVOTHYROXINE SODIUM 112 MCG TABLET PO SCH (06:43)
[2023-08-17] MEDS: HYDROGEN PEROXIDE 3% 118 ML BOTTLE TP SCH ×2 (07:12→19:07)
[2023-08-17] MEDS: BUDESONIDE 0.5 MG/2 ML NEBU NEB SCH ×2 (07:12→19:07)
[2023-08-17] MEDS: TOLTERODINE 1 MG TABLET PO SCH ×2 (09:36→17:00)
[2023-08-17] MEDS: DORZOLAMIDE/TIMOLOL OPHT DROP 10 ML BOTTLE EACHEYE SCH ×2 (09:36→17:00)
[2023-08-17] MEDS: FERROUS SULFATE 325 MG TABEC PO SCH (09:37)
[2023-08-17] MEDS: FOLIC ACID 1 MG TABLET PO SCH (09:37)
[2023-08-17] MEDS: levETIRAcetam 500 MG/5 ML LIQUID UDC PO SCH ×2 (09:38→17:00)
[2023-08-17] MEDS: REMEDY ESSENTIAL ZINC PASTE 113 GM TP SCH ×2 (09:39→20:56)
[2023-08-17] MEDS: VITAMINS A AND D 5 GM UD PKT TP SCH ×2 (09:39→20:56)
[2023-08-17] MEDS: MIRALAX 17 GM POWD.PACK PO SCH ×2 (09:39→17:00)
[2023-08-17] MEDS: BENZONATATE 100 MG CAPSULE PO PRN (10:09)
[2023-08-17] MEDS: GUAIFENESIN SUGAR FREE 100 MG/5 ML UDC PO PRN (10:09)
[2023-08-17] MEDS: MAGNESIUM OXIDE 400 MG TABLET PO SCH (18:16)
[2023-08-17] MEDS: MULTIVIT, IRON, MIN NO. 8, FA TABLET PO SCH (18:16)
[2023-08-17] MEDS: CHOLECALCIFEROL 1,000 UNIT TABLET PO SCH (18:16)
[2023-08-17] MEDS: OMEGA-3 FATTY ACIDS/FISH OIL CAPSULE PO SCH (18:16)
[2023-08-17] MEDS: ASPIRIN 81 MG TAB.CHEW PO SCH (18:16)
[2023-08-17] MEDS: ATORVASTATIN 20 MG TABLET PO SCH (18:16)
[2023-08-17] MEDS: LATANOPROST OPHT DROP 2.5 ML BOTTLE EACHEYE SCH (20:56)
[2023-08-18] VITALS (10 sets, daily range): TEMP 97.3–97.8; O2SAT 97–99
[2023-08-18] MEDS: IPRATROPIUM/ALBUTEROL SULFATE 3 ML AMPUL.NEB NEB SCH ×4 (01:14→19:07)
[2023-08-18] MEDS: LEVOTHYROXINE SODIUM 112 MCG TABLET PO SCH (06:38)
[2023-08-18] MEDS: BUDESONIDE 0.5 MG/2 ML NEBU NEB SCH ×2 (07:38→19:07)
[2023-08-18] MEDS: HYDROGEN PEROXIDE 3% 118 ML BOTTLE TP SCH ×2 (08:02→19:08)
[2023-08-18] MEDS: TOLTERODINE 1 MG TABLET PO SCH ×2 (09:49→17:57)
[2023-08-18] MEDS: REMEDY ESSENTIAL ZINC PASTE 113 GM TP SCH ×2 (09:49→21:31)
[2023-08-18] MEDS: levETIRAcetam 500 MG/5 ML LIQUID UDC PO SCH ×2 (09:49→17:00)
[2023-08-18] MEDS: FOLIC ACID 1 MG TABLET PO SCH (09:49)
[2023-08-18] MEDS: VITAMINS A AND D 5 GM UD PKT TP SCH ×2 (09:49→21:31)
[2023-08-18] MEDS: MIRALAX 17 GM POWD.PACK PO SCH ×2 (09:49→17:00)
[2023-08-18] MEDS: DORZOLAMIDE/TIMOLOL OPHT DROP 10 ML BOTTLE EACHEYE SCH ×2 (09:49→17:57)
[2023-08-18] MEDS: FERROUS SULFATE 325 MG TABEC PO SCH (09:49)
[2023-08-18] MEDS: BENZONATATE 100 MG CAPSULE PO PRN ×2 (10:27→18:06)
[2023-08-18] MEDS: GUAIFENESIN SUGAR FREE 100 MG/5 ML UDC PO PRN ×2 (10:27→18:07)
[2023-08-18] MEDS: OMEGA-3 FATTY ACIDS/FISH OIL CAPSULE PO SCH (18:03)
[2023-08-18] MEDS: ASPIRIN 81 MG TAB.CHEW PO SCH (18:03)
[2023-08-18] MEDS: ATORVASTATIN 20 MG TABLET PO SCH (18:04)
[2023-08-18] MEDS: MAGNESIUM OXIDE 400 MG TABLET PO SCH (18:05)
[2023-08-18] MEDS: CHOLECALCIFEROL 1,000 UNIT TABLET PO SCH (18:05)
[2023-08-18] MEDS: MULTIVIT, IRON, MIN NO. 8, FA TABLET PO SCH (18:06)
[2023-08-18] MEDS: LATANOPROST OPHT DROP 2.5 ML BOTTLE EACHEYE SCH (21:31)
[2023-08-19] VITALS (10 sets, daily range): TEMP 97.5–97.6; O2SAT 97–99
[2023-08-19] MEDS: IPRATROPIUM/ALBUTEROL SULFATE 3 ML AMPUL.NEB NEB SCH ×4 (01:27→19:09)
[2023-08-19] MEDS: LEVOTHYROXINE SODIUM 112 MCG TABLET PO SCH (05:52)
[2023-08-19] MEDS: HYDROGEN PEROXIDE 3% 118 ML BOTTLE TP SCH ×2 (07:10→19:09)
[2023-08-19] MEDS: BUDESONIDE 0.5 MG/2 ML NEBU NEB SCH ×2 (07:10→19:09)
[2023-08-19] MEDS: TOLTERODINE 1 MG TABLET PO SCH ×2 (09:10→16:38)
[2023-08-19] MEDS: DORZOLAMIDE/TIMOLOL OPHT DROP 10 ML BOTTLE EACHEYE SCH ×2 (09:10→16:38)
[2023-08-19] MEDS: FOLIC ACID 1 MG TABLET PO SCH (09:11)
[2023-08-19] MEDS: FERROUS SULFATE 325 MG TABEC PO SCH (09:11)
[2023-08-19] MEDS: levETIRAcetam 500 MG/5 ML LIQUID UDC PO SCH ×2 (09:11→16:38)
[2023-08-19] MEDS: REMEDY ESSENTIAL ZINC PASTE 113 GM TP SCH ×2 (09:13→21:12)
[2023-08-19] MEDS: MIRALAX 17 GM POWD.PACK PO SCH ×2 (09:13→16:38)
[2023-08-19] MEDS: VITAMINS A AND D 5 GM UD PKT TP SCH ×2 (09:13→21:12)
[2023-08-19] MEDS: GUAIFENESIN SUGAR FREE 100 MG/5 ML UDC PO PRN ×2 (09:20→17:11)
[2023-08-19] MEDS: BENZONATATE 100 MG CAPSULE PO PRN ×2 (09:20→17:10)
[2023-08-19] MEDS: ATORVASTATIN 20 MG TABLET PO SCH (17:09)
[2023-08-19] MEDS: CHOLECALCIFEROL 1,000 UNIT TABLET PO SCH (17:09)
[2023-08-19] MEDS: MAGNESIUM OXIDE 400 MG TABLET PO SCH (17:09)
[2023-08-19] MEDS: MULTIVIT, IRON, MIN NO. 8, FA TABLET PO SCH (17:09)
[2023-08-19] MEDS: OMEGA-3 FATTY ACIDS/FISH OIL CAPSULE PO SCH (17:09)
[2023-08-19] MEDS: ASPIRIN 81 MG TAB.CHEW PO SCH (17:09)
[2023-08-19] MEDS: LATANOPROST OPHT DROP 2.5 ML BOTTLE EACHEYE SCH (21:12)
[2023-08-20] VITALS (10 sets, daily range): TEMP 98–98.6; O2SAT 97–99
[2023-08-20] MEDS: IPRATROPIUM/ALBUTEROL SULFATE 3 ML AMPUL.NEB NEB SCH ×4 (01:01→19:05)
[2023-08-20] MEDS: LEVOTHYROXINE SODIUM 112 MCG TABLET PO SCH (06:02)
[2023-08-20] MEDS: HYDROGEN PEROXIDE 3% 118 ML BOTTLE TP SCH ×2 (07:23→19:05)
[2023-08-20] MEDS: BUDESONIDE 0.5 MG/2 ML NEBU NEB SCH ×2 (07:23→19:05)
[2023-08-20] MEDS: TOLTERODINE 1 MG TABLET PO SCH ×2 (09:15→17:00)
[2023-08-20] MEDS: DORZOLAMIDE/TIMOLOL OPHT DROP 10 ML BOTTLE EACHEYE SCH ×2 (09:15→17:00)
[2023-08-20] MEDS: FERROUS SULFATE 325 MG TABEC PO SCH (09:17)
[2023-08-20] MEDS: FOLIC ACID 1 MG TABLET PO SCH (09:18)
[2023-08-20] MEDS: MIRALAX 17 GM POWD.PACK PO SCH ×2 (09:20→17:00)
[2023-08-20] MEDS: BENZONATATE 100 MG CAPSULE PO PRN ×2 (09:20→18:05)
[2023-08-20] MEDS: GUAIFENESIN SUGAR FREE 100 MG/5 ML UDC PO PRN ×2 (09:20→18:05)
[2023-08-20] MEDS: REMEDY ESSENTIAL ZINC PASTE 113 GM TP SCH ×2 (09:20→21:19)
[2023-08-20] MEDS: VITAMINS A AND D 5 GM UD PKT TP SCH ×2 (09:20→21:19)
[2023-08-20] MEDS: levETIRAcetam 500 MG/5 ML LIQUID UDC PO SCH ×2 (09:20→17:00)
[2023-08-20] MEDS: ACETAMINOPHEN 325 MG TABLET-SA PATIENTS-PAIN ONLY PO PRN (09:34)
[2023-08-20] MEDS: ATORVASTATIN 20 MG TABLET PO SCH (18:03)
[2023-08-20] MEDS: OMEGA-3 FATTY ACIDS/FISH OIL CAPSULE PO SCH (18:03)
[2023-08-20] MEDS: ASPIRIN 81 MG TAB.CHEW PO SCH (18:03)
[2023-08-20] MEDS: MAGNESIUM OXIDE 400 MG TABLET PO SCH (18:03)
[2023-08-20] MEDS: CHOLECALCIFEROL 1,000 UNIT TABLET PO SCH (18:04)
[2023-08-20] MEDS: MULTIVIT, IRON, MIN NO. 8, FA TABLET PO SCH (18:04)
[2023-08-20] MEDS: LATANOPROST OPHT DROP 2.5 ML BOTTLE EACHEYE SCH (21:19)
[2023-08-21] VITALS (10 sets, daily range): TEMP 97.6–97.7; O2SAT 97–99
[2023-08-21] MEDS: IPRATROPIUM/ALBUTEROL SULFATE 3 ML AMPUL.NEB NEB SCH ×4 (00:32→19:25)
[2023-08-21] MEDS: LEVOTHYROXINE SODIUM 112 MCG TABLET PO SCH (05:47)
[2023-08-21] MEDS: BUDESONIDE 0.5 MG/2 ML NEBU NEB SCH ×2 (07:13→19:25)
[2023-08-21] MEDS: HYDROGEN PEROXIDE 3% 118 ML BOTTLE TP SCH ×2 (07:13→19:25)
[2023-08-21] MEDS: DORZOLAMIDE/TIMOLOL OPHT DROP 10 ML BOTTLE EACHEYE SCH ×2 (09:08→17:11)
[2023-08-21] MEDS: FERROUS SULFATE 325 MG TABEC PO SCH (09:09)
[2023-08-21] MEDS: FOLIC ACID 1 MG TABLET PO SCH (09:09)
[2023-08-21] MEDS: levETIRAcetam 500 MG/5 ML LIQUID UDC PO SCH ×2 (09:09→17:13)
[2023-08-21] MEDS: TOLTERODINE 1 MG TABLET PO SCH ×2 (09:09→17:11)
[2023-08-21] MEDS: REMEDY ESSENTIAL ZINC PASTE 113 GM TP SCH ×2 (09:11→21:34)
[2023-08-21] MEDS: MIRALAX 17 GM POWD.PACK PO SCH ×2 (09:11→17:13)
[2023-08-21] MEDS: VITAMINS A AND D 5 GM UD PKT TP SCH ×2 (09:11→21:34)
[2023-08-21] MEDS: GUAIFENESIN SUGAR FREE 100 MG/5 ML UDC PO PRN ×2 (09:12→17:18)
[2023-08-21] MEDS: BENZONATATE 100 MG CAPSULE PO PRN ×2 (09:12→17:18)
[2023-08-21] MEDS: ASPIRIN 81 MG TAB.CHEW PO SCH (17:13)
[2023-08-21] MEDS: ATORVASTATIN 20 MG TABLET PO SCH (17:14)
[2023-08-21] MEDS: MAGNESIUM OXIDE 400 MG TABLET PO SCH (17:14)
[2023-08-21] MEDS: OMEGA-3 FATTY ACIDS/FISH OIL CAPSULE PO SCH (17:14)
[2023-08-21] MEDS: MULTIVIT, IRON, MIN NO. 8, FA TABLET PO SCH (17:15)
[2023-08-21] MEDS: CHOLECALCIFEROL 1,000 UNIT TABLET PO SCH (17:17)
[2023-08-21] MEDS: LATANOPROST OPHT DROP 2.5 ML BOTTLE EACHEYE SCH (21:34)
[2023-08-22] VITALS (10 sets, daily range): TEMP 97.2–98.2; O2SAT 97–99
[2023-08-22] MEDS: IPRATROPIUM/ALBUTEROL SULFATE 3 ML AMPUL.NEB NEB SCH ×4 (01:09→19:07)
[2023-08-22] MEDS: BENZONATATE 100 MG CAPSULE PO PRN ×2 (03:00→16:40)
[2023-08-22] MEDS: LEVOTHYROXINE SODIUM 112 MCG TABLET PO SCH (05:59)
[2023-08-22] MEDS: BUDESONIDE 0.5 MG/2 ML NEBU NEB SCH ×2 (07:07→19:07)
[2023-08-22] MEDS: HYDROGEN PEROXIDE 3% 118 ML BOTTLE TP SCH ×2 (07:07→19:07)
[2023-08-22] MEDS: DORZOLAMIDE/TIMOLOL OPHT DROP 10 ML BOTTLE EACHEYE SCH ×2 (09:10→16:34)
[2023-08-22] MEDS: TOLTERODINE 1 MG TABLET PO SCH ×2 (09:11→16:35)
[2023-08-22] MEDS: levETIRAcetam 500 MG/5 ML LIQUID UDC PO SCH ×2 (09:12→16:36)
[2023-08-22] MEDS: FOLIC ACID 1 MG TABLET PO SCH (09:12)
[2023-08-22] MEDS: FERROUS SULFATE 325 MG TABEC PO SCH (09:12)
[2023-08-22] MEDS: VITAMINS A AND D 5 GM UD PKT TP SCH ×2 (09:13→21:06)
[2023-08-22] MEDS: REMEDY ESSENTIAL ZINC PASTE 113 GM TP SCH ×2 (09:13→21:06)
[2023-08-22] MEDS: MIRALAX 17 GM POWD.PACK PO SCH ×2 (09:13→16:36)
[2023-08-22] MEDS: MULTIVIT, IRON, MIN NO. 8, FA TABLET PO SCH (17:24)
[2023-08-22] MEDS: ASPIRIN 81 MG TAB.CHEW PO SCH (17:24)
[2023-08-22] MEDS: ATORVASTATIN 20 MG TABLET PO SCH (17:24)
[2023-08-22] MEDS: CHOLECALCIFEROL 1,000 UNIT TABLET PO SCH (17:24)
[2023-08-22] MEDS: MAGNESIUM OXIDE 400 MG TABLET PO SCH (17:24)
[2023-08-22] MEDS: OMEGA-3 FATTY ACIDS/FISH OIL CAPSULE PO SCH (17:24)
[2023-08-22] MEDS: LATANOPROST OPHT DROP 2.5 ML BOTTLE EACHEYE SCH (21:06)
[2023-08-23] VITALS (10 sets, daily range): TEMP 97.5–98.3; O2SAT 98–99
[2023-08-23] MEDS: IPRATROPIUM/ALBUTEROL SULFATE 3 ML AMPUL.NEB NEB SCH ×4 (00:31→19:04)
[2023-08-23] MEDS: ACETAMINOPHEN 325 MG TABLET-SA PATIENTS-PAIN ONLY PO PRN ×3 (01:58→06:08)
[2023-08-23] MEDS: LEVOTHYROXINE SODIUM 112 MCG TABLET PO SCH ×2 (05:49→06:07)
[2023-08-23] MEDS: ACETAMINOPHEN 325 MG TABLET-SA PATIENTS-FEVER ONLY PO PRN ×3 (05:52→06:09)
[2023-08-23] MEDS: BUDESONIDE 0.5 MG/2 ML NEBU NEB SCH ×2 (07:55→19:04)
[2023-08-23] MEDS: HYDROGEN PEROXIDE 3% 118 ML BOTTLE TP SCH ×2 (07:56→19:04)
[2023-08-23] MEDS: FERROUS SULFATE 325 MG TABEC PO SCH (09:52)
[2023-08-23] MEDS: MIRALAX 17 GM POWD.PACK PO SCH ×2 (09:52→17:20)
[2023-08-23] MEDS: FOLIC ACID 1 MG TABLET PO SCH (09:52)
[2023-08-23] MEDS: VITAMINS A AND D 5 GM UD PKT TP SCH ×2 (09:52→21:19)
[2023-08-23] MEDS: TOLTERODINE 1 MG TABLET PO SCH ×2 (09:52→17:20)
[2023-08-23] MEDS: levETIRAcetam 500 MG/5 ML LIQUID UDC PO SCH ×2 (09:52→17:20)
[2023-08-23] MEDS: DORZOLAMIDE/TIMOLOL OPHT DROP 10 ML BOTTLE EACHEYE SCH ×2 (09:52→17:20)
[2023-08-23] MEDS: REMEDY ESSENTIAL ZINC PASTE 113 GM TP SCH ×2 (09:52→21:19)
[2023-08-23] MEDS: BENZONATATE 100 MG CAPSULE PO PRN (09:53)
[2023-08-23] MEDS: GUAIFENESIN SUGAR FREE 100 MG/5 ML UDC PO PRN (09:53)
[2023-08-23] MEDS: OMEGA-3 FATTY ACIDS/FISH OIL CAPSULE PO SCH (17:20)
[2023-08-23] MEDS: MULTIVIT, IRON, MIN NO. 8, FA TABLET PO SCH (17:20)
[2023-08-23] MEDS: ASPIRIN 81 MG TAB.CHEW PO SCH (17:20)
[2023-08-23] MEDS: MAGNESIUM OXIDE 400 MG TABLET PO SCH (17:20)
[2023-08-23] MEDS: ATORVASTATIN 20 MG TABLET PO SCH (17:20)
[2023-08-23] MEDS: CHOLECALCIFEROL 1,000 UNIT TABLET PO SCH (17:21)
[2023-08-23] MEDS: LATANOPROST OPHT DROP 2.5 ML BOTTLE EACHEYE SCH (21:18)
[2023-08-24] VITALS (11 sets, daily range): TEMP 97.8–97.9; O2SAT 98–99
[2023-08-24] MEDS: IPRATROPIUM/ALBUTEROL SULFATE 3 ML AMPUL.NEB NEB SCH ×4 (00:31→19:05)
[2023-08-24] MEDS: LEVOTHYROXINE SODIUM 112 MCG TABLET PO SCH (05:42)
[2023-08-24] MEDS: BUDESONIDE 0.5 MG/2 ML NEBU NEB SCH ×2 (07:30→19:05)
[2023-08-24] MEDS: HYDROGEN PEROXIDE 3% 118 ML BOTTLE TP SCH ×2 (08:30→19:05)
[2023-08-24] MEDS: DORZOLAMIDE/TIMOLOL OPHT DROP 10 ML BOTTLE EACHEYE SCH ×2 (09:39→16:34)
[2023-08-24] MEDS: FERROUS SULFATE 325 MG TABEC PO SCH (09:39)
[2023-08-24] MEDS: FOLIC ACID 1 MG TABLET PO SCH (09:39)
[2023-08-24] MEDS: TOLTERODINE 1 MG TABLET PO SCH ×2 (09:39→16:34)
[2023-08-24] MEDS: levETIRAcetam 500 MG/5 ML LIQUID UDC PO SCH ×2 (09:40→16:34)
[2023-08-24] MEDS: VITAMINS A AND D 5 GM UD PKT TP SCH ×2 (09:40→20:26)
[2023-08-24] MEDS: REMEDY ESSENTIAL ZINC PASTE 113 GM TP SCH ×2 (09:40→20:26)
[2023-08-24] MEDS: MIRALAX 17 GM POWD.PACK PO SCH ×2 (09:40→16:34)
[2023-08-24] MEDS: OMEGA-3 FATTY ACIDS/FISH OIL CAPSULE PO SCH (17:33)
[2023-08-24] MEDS: MAGNESIUM OXIDE 400 MG TABLET PO SCH (17:33)
[2023-08-24] MEDS: MULTIVIT, IRON, MIN NO. 8, FA TABLET PO SCH (17:33)
[2023-08-24] MEDS: CHOLECALCIFEROL 1,000 UNIT TABLET PO SCH (17:33)
[2023-08-24] MEDS: ASPIRIN 81 MG TAB.CHEW PO SCH (17:33)
[2023-08-24] MEDS: ATORVASTATIN 20 MG TABLET PO SCH (17:33)
[2023-08-24] MEDS: LATANOPROST OPHT DROP 2.5 ML BOTTLE EACHEYE SCH (20:26)
[2023-08-25] VITALS (11 sets, daily range): TEMP 97.2–98.8; O2SAT 98–99
[2023-08-25] MEDS: IPRATROPIUM/ALBUTEROL SULFATE 3 ML AMPUL.NEB NEB SCH ×4 (00:31→19:16)
[2023-08-25] MEDS: LEVOTHYROXINE SODIUM 112 MCG TABLET PO SCH (05:30)
[2023-08-25] MEDS: BUDESONIDE 0.5 MG/2 ML NEBU NEB SCH ×2 (07:40→19:17)
[2023-08-25] MEDS: HYDROGEN PEROXIDE 3% 118 ML BOTTLE TP SCH ×2 (09:00→19:17)
[2023-08-25] MEDS: REMEDY ESSENTIAL ZINC PASTE 113 GM TP SCH ×2 (09:53→20:50)
[2023-08-25] MEDS: TOLTERODINE 1 MG TABLET PO SCH ×2 (09:53→17:19)
[2023-08-25] MEDS: levETIRAcetam 500 MG/5 ML LIQUID UDC PO SCH ×2 (09:53→17:19)
[2023-08-25] MEDS: DORZOLAMIDE/TIMOLOL OPHT DROP 10 ML BOTTLE EACHEYE SCH ×2 (09:53→17:19)
[2023-08-25] MEDS: VITAMINS A AND D 5 GM UD PKT TP SCH ×2 (09:53→20:50)
[2023-08-25] MEDS: MIRALAX 17 GM POWD.PACK PO SCH ×2 (09:53→17:19)
[2023-08-25] MEDS: FERROUS SULFATE 325 MG TABEC PO SCH (09:53)
[2023-08-25] MEDS: FOLIC ACID 1 MG TABLET PO SCH (09:53)
[2023-08-25] MEDS: BENZONATATE 100 MG CAPSULE PO PRN (10:05)
[2023-08-25] MEDS: GUAIFENESIN SUGAR FREE 100 MG/5 ML UDC PO PRN (10:05)
[2023-08-25] MEDS: ACETAMINOPHEN 325 MG TABLET-SA PATIENTS-PAIN ONLY PO PRN (10:07)
[2023-08-25] MEDS: OMEGA-3 FATTY ACIDS/FISH OIL CAPSULE PO SCH (17:19)
[2023-08-25] MEDS: CHOLECALCIFEROL 1,000 UNIT TABLET PO SCH (17:19)
[2023-08-25] MEDS: ASPIRIN 81 MG TAB.CHEW PO SCH (17:19)
[2023-08-25] MEDS: MULTIVIT, IRON, MIN NO. 8, FA TABLET PO SCH (17:19)
[2023-08-25] MEDS: ATORVASTATIN 20 MG TABLET PO SCH (17:19)
[2023-08-25] MEDS: MAGNESIUM OXIDE 400 MG TABLET PO SCH (17:19)
[2023-08-25] MEDS: LATANOPROST OPHT DROP 2.5 ML BOTTLE EACHEYE SCH (20:50)
[2023-08-26] VITALS (12 sets, daily range): TEMP 98.3–98.6; O2SAT 98–99
[2023-08-26] MEDS: IPRATROPIUM/ALBUTEROL SULFATE 3 ML AMPUL.NEB NEB SCH ×4 (01:21→19:08)
[2023-08-26] MEDS: LEVOTHYROXINE SODIUM 112 MCG TABLET PO SCH (05:33)
[2023-08-26] MEDS: BUDESONIDE 0.5 MG/2 ML NEBU NEB SCH ×2 (07:30→19:08)
[2023-08-26] MEDS: DORZOLAMIDE/TIMOLOL OPHT DROP 10 ML BOTTLE EACHEYE SCH ×2 (09:43→16:54)
[2023-08-26] MEDS: TOLTERODINE 1 MG TABLET PO SCH ×2 (09:43→16:54)
[2023-08-26] MEDS: FOLIC ACID 1 MG TABLET PO SCH (09:44)
[2023-08-26] MEDS: levETIRAcetam 500 MG/5 ML LIQUID UDC PO SCH ×2 (09:45→16:55)
[2023-08-26] MEDS: MIRALAX 17 GM POWD.PACK PO SCH ×2 (09:45→16:55)
[2023-08-26] MEDS: REMEDY ESSENTIAL ZINC PASTE 113 GM TP SCH ×2 (09:46→20:24)
[2023-08-26] MEDS: GUAIFENESIN SUGAR FREE 100 MG/5 ML UDC PO PRN ×2 (09:46→17:01)
[2023-08-26] MEDS: VITAMINS A AND D 5 GM UD PKT TP SCH ×2 (09:46→20:24)
[2023-08-26] MEDS: BENZONATATE 100 MG CAPSULE PO PRN ×2 (09:46→17:01)
[2023-08-26] MEDS: FERROUS SULFATE 325 MG TABEC PO SCH (09:47)
[2023-08-26] MEDS: HYDROGEN PEROXIDE 3% 118 ML BOTTLE TP SCH ×2 (09:54→19:08)
[2023-08-26] MEDS: OMEGA-3 FATTY ACIDS/FISH OIL CAPSULE PO SCH (17:08)
[2023-08-26] MEDS: MAGNESIUM OXIDE 400 MG TABLET PO SCH (17:08)
[2023-08-26] MEDS: MULTIVIT, IRON, MIN NO. 8, FA TABLET PO SCH (17:08)
[2023-08-26] MEDS: ATORVASTATIN 20 MG TABLET PO SCH (17:08)
[2023-08-26] MEDS: CHOLECALCIFEROL 1,000 UNIT TABLET PO SCH (17:08)
[2023-08-26] MEDS: ASPIRIN 81 MG TAB.CHEW PO SCH (17:08)
[2023-08-26] MEDS: LATANOPROST OPHT DROP 2.5 ML BOTTLE EACHEYE SCH (20:24)
[2023-08-27] VITALS (10 sets, daily range): TEMP 97.6–98.1; O2SAT 97–99
[2023-08-27] MEDS: IPRATROPIUM/ALBUTEROL SULFATE 3 ML AMPUL.NEB NEB SCH ×4 (01:37→19:08)
[2023-08-27] MEDS: LEVOTHYROXINE SODIUM 112 MCG TABLET PO SCH (05:31)
[2023-08-27] MEDS: BUDESONIDE 0.5 MG/2 ML NEBU NEB SCH ×2 (07:41→19:08)
[2023-08-27] MEDS: HYDROGEN PEROXIDE 3% 118 ML BOTTLE TP SCH ×2 (08:03→19:08)
[2023-08-27] MEDS: DORZOLAMIDE/TIMOLOL OPHT DROP 10 ML BOTTLE EACHEYE SCH ×2 (09:13→17:55)
[2023-08-27] MEDS: TOLTERODINE 1 MG TABLET PO SCH ×2 (09:15→17:55)
[2023-08-27] MEDS: FERROUS SULFATE 325 MG TABEC PO SCH (09:15)
[2023-08-27] MEDS: levETIRAcetam 500 MG/5 ML LIQUID UDC PO SCH ×2 (09:16→17:55)
[2023-08-27] MEDS: FOLIC ACID 1 MG TABLET PO SCH (09:16)
[2023-08-27] MEDS: MIRALAX 17 GM POWD.PACK PO SCH ×2 (09:17→17:55)
[2023-08-27] MEDS: VITAMINS A AND D 5 GM UD PKT TP SCH ×2 (09:17→20:35)
[2023-08-27] MEDS: REMEDY ESSENTIAL ZINC PASTE 113 GM TP SCH ×2 (09:17→20:35)
[2023-08-27] MEDS: BENZONATATE 100 MG CAPSULE PO PRN ×2 (09:21→17:58)
[2023-08-27] MEDS: GUAIFENESIN SUGAR FREE 100 MG/5 ML UDC PO PRN ×2 (09:21→17:58)
[2023-08-27] MEDS: OMEGA-3 FATTY ACIDS/FISH OIL CAPSULE PO SCH (17:55)
[2023-08-27] MEDS: ASPIRIN 81 MG TAB.CHEW PO SCH (17:55)
[2023-08-27] MEDS: ATORVASTATIN 20 MG TABLET PO SCH (17:57)
[2023-08-27] MEDS: MAGNESIUM OXIDE 400 MG TABLET PO SCH (17:57)
[2023-08-27] MEDS: CHOLECALCIFEROL 1,000 UNIT TABLET PO SCH (17:58)
[2023-08-27] MEDS: MULTIVIT, IRON, MIN NO. 8, FA TABLET PO SCH (17:58)
[2023-08-27] MEDS: LATANOPROST OPHT DROP 2.5 ML BOTTLE EACHEYE SCH (20:35)
[2023-08-28] VITALS (11 sets, daily range): TEMP 97.8–98; O2SAT 98–99
[2023-08-28] MEDS: IPRATROPIUM/ALBUTEROL SULFATE 3 ML AMPUL.NEB NEB SCH ×4 (00:31→19:31)
[2023-08-28] MEDS: LEVOTHYROXINE SODIUM 112 MCG TABLET PO SCH ×3 (05:59→06:04)
[2023-08-28] MEDS: BUDESONIDE 0.5 MG/2 ML NEBU NEB SCH ×2 (07:30→19:31)
[2023-08-28] MEDS: DORZOLAMIDE/TIMOLOL OPHT DROP 10 ML BOTTLE EACHEYE SCH ×2 (08:29→17:07)
[2023-08-28] MEDS: TOLTERODINE 1 MG TABLET PO SCH ×2 (08:29→17:07)
[2023-08-28] MEDS: FOLIC ACID 1 MG TABLET PO SCH (08:31)
[2023-08-28] MEDS: FERROUS SULFATE 325 MG TABEC PO SCH (08:31)
[2023-08-28] MEDS: levETIRAcetam 500 MG/5 ML LIQUID UDC PO SCH ×2 (08:33→17:07)
[2023-08-28] MEDS: MIRALAX 17 GM POWD.PACK PO SCH ×2 (08:38→17:07)
[2023-08-28] MEDS: VITAMINS A AND D 5 GM UD PKT TP SCH ×2 (08:39→20:17)
[2023-08-28] MEDS: REMEDY ESSENTIAL ZINC PASTE 113 GM TP SCH ×2 (08:39→20:17)
[2023-08-28] MEDS: BENZONATATE 100 MG CAPSULE PO PRN (08:41)
[2023-08-28] MEDS: GUAIFENESIN SUGAR FREE 100 MG/5 ML UDC PO PRN (08:41)
[2023-08-28] MEDS: HYDROGEN PEROXIDE 3% 118 ML BOTTLE TP SCH ×2 (09:00→19:31)
[2023-08-28] MEDS ORDERED: INFLUENZA VACCINE 2023-2024 0.5 ML DISP.SYRIN IM ONE (13:00)
[2023-08-28] MEDS: ATORVASTATIN 20 MG TABLET PO SCH (17:07)
[2023-08-28] MEDS: MULTIVIT, IRON, MIN NO. 8, FA TABLET PO SCH (17:07)
[2023-08-28] MEDS: MAGNESIUM OXIDE 400 MG TABLET PO SCH (17:07)
[2023-08-28] MEDS: OMEGA-3 FATTY ACIDS/FISH OIL CAPSULE PO SCH (17:07)
[2023-08-28] MEDS: ASPIRIN 81 MG TAB.CHEW PO SCH (17:07)
[2023-08-28] MEDS: CHOLECALCIFEROL 1,000 UNIT TABLET PO SCH (17:07)
[2023-08-28] MEDS: LATANOPROST OPHT DROP 2.5 ML BOTTLE EACHEYE SCH (20:17)
[2023-08-29] VITALS (9 sets, daily range): TEMP 97.6–98.2; O2SAT 97–99
[2023-08-29] MEDS: IPRATROPIUM/ALBUTEROL SULFATE 3 ML AMPUL.NEB NEB SCH ×4 (01:35→19:10)
[2023-08-29] MEDS: LEVOTHYROXINE SODIUM 112 MCG TABLET PO SCH (05:52)
[2023-08-29] MEDS: BUDESONIDE 0.5 MG/2 ML NEBU NEB SCH ×2 (07:30→19:11)
[2023-08-29] MEDS: HYDROGEN PEROXIDE 3% 118 ML BOTTLE TP SCH ×2 (08:52→19:11)
[2023-08-29] MEDS: DORZOLAMIDE/TIMOLOL OPHT DROP 10 ML BOTTLE EACHEYE SCH ×2 (09:28→17:34)
[2023-08-29] MEDS: FERROUS SULFATE 325 MG TABEC PO SCH (09:28)
[2023-08-29] MEDS: levETIRAcetam 500 MG/5 ML LIQUID UDC PO SCH ×2 (09:28→17:34)
[2023-08-29] MEDS: FOLIC ACID 1 MG TABLET PO SCH (09:28)
[2023-08-29] MEDS: MIRALAX 17 GM POWD.PACK PO SCH ×2 (09:28→17:34)
[2023-08-29] MEDS: VITAMINS A AND D 5 GM UD PKT TP SCH ×2 (09:28→20:40)
[2023-08-29] MEDS: TOLTERODINE 1 MG TABLET PO SCH ×2 (09:28→17:34)
[2023-08-29] MEDS: REMEDY ESSENTIAL ZINC PASTE 113 GM TP SCH ×2 (09:28→20:40)
[2023-08-29] MEDS: MULTIVIT, IRON, MIN NO. 8, FA TABLET PO SCH (17:34)
[2023-08-29] MEDS: ASPIRIN 81 MG TAB.CHEW PO SCH (17:34)
[2023-08-29] MEDS: ATORVASTATIN 20 MG TABLET PO SCH (17:34)
[2023-08-29] MEDS: MAGNESIUM OXIDE 400 MG TABLET PO SCH (17:34)
[2023-08-29] MEDS: OMEGA-3 FATTY ACIDS/FISH OIL CAPSULE PO SCH (17:34)
[2023-08-29] MEDS: CHOLECALCIFEROL 1,000 UNIT TABLET PO SCH (17:34)
[2023-08-29] MEDS: LATANOPROST OPHT DROP 2.5 ML BOTTLE EACHEYE SCH (20:40)
[2023-08-30] VITALS (10 sets, daily range): TEMP 97.8; O2SAT 97–99
[2023-08-30] MEDS: IPRATROPIUM/ALBUTEROL SULFATE 3 ML AMPUL.NEB NEB SCH ×4 (01:52→19:28)
[2023-08-30] MEDS: LEVOTHYROXINE SODIUM 112 MCG TABLET PO SCH (05:40)
[2023-08-30] MEDS: BUDESONIDE 0.5 MG/2 ML NEBU NEB SCH ×2 (07:33→19:28)
[2023-08-30] MEDS: DORZOLAMIDE/TIMOLOL OPHT DROP 10 ML BOTTLE EACHEYE SCH ×2 (08:54→17:00)
[2023-08-30] MEDS: FERROUS SULFATE 325 MG TABEC PO SCH (08:54)
[2023-08-30] MEDS: TOLTERODINE 1 MG TABLET PO SCH ×2 (08:54→17:00)
[2023-08-30] MEDS: levETIRAcetam 500 MG/5 ML LIQUID UDC PO SCH ×2 (08:54→17:00)
[2023-08-30] MEDS: FOLIC ACID 1 MG TABLET PO SCH (08:54)
[2023-08-30] MEDS: REMEDY ESSENTIAL ZINC PASTE 113 GM TP SCH ×2 (08:55→20:24)
[2023-08-30] MEDS: MIRALAX 17 GM POWD.PACK PO SCH ×2 (08:55→17:00)
[2023-08-30] MEDS: VITAMINS A AND D 5 GM UD PKT TP SCH ×2 (08:55→20:24)
[2023-08-30] MEDS: HYDROGEN PEROXIDE 3% 118 ML BOTTLE TP SCH ×2 (09:00→19:28)
[2023-08-30] MEDS: ATORVASTATIN 20 MG TABLET PO SCH (18:06)
[2023-08-30] MEDS: CHOLECALCIFEROL 1,000 UNIT TABLET PO SCH (18:06)
[2023-08-30] MEDS: MULTIVIT, IRON, MIN NO. 8, FA TABLET PO SCH (18:06)
[2023-08-30] MEDS: OMEGA-3 FATTY ACIDS/FISH OIL CAPSULE PO SCH (18:06)
[2023-08-30] MEDS: ASPIRIN 81 MG TAB.CHEW PO SCH (18:06)
[2023-08-30] MEDS: MAGNESIUM OXIDE 400 MG TABLET PO SCH (18:06)
[2023-08-30] MEDS: LATANOPROST OPHT DROP 2.5 ML BOTTLE EACHEYE SCH (20:24)
[2023-08-31] VITALS (10 sets, daily range): TEMP 97.7–97.8; O2SAT 98–99
[2023-08-31] MEDS: IPRATROPIUM/ALBUTEROL SULFATE 3 ML AMPUL.NEB NEB SCH ×4 (01:31→19:18)
[2023-08-31] MEDS: LEVOTHYROXINE SODIUM 112 MCG TABLET PO SCH (06:18)
[2023-08-31] MEDS: BUDESONIDE 0.5 MG/2 ML NEBU NEB SCH ×2 (07:19→19:18)
[2023-08-31] MEDS: HYDROGEN PEROXIDE 3% 118 ML BOTTLE TP SCH ×2 (07:19→19:18)
[2023-08-31] MEDS: DORZOLAMIDE/TIMOLOL OPHT DROP 10 ML BOTTLE EACHEYE SCH ×2 (09:03→17:13)
[2023-08-31] MEDS: REMEDY ESSENTIAL ZINC PASTE 113 GM TP SCH ×2 (09:04→20:24)
[2023-08-31] MEDS: TOLTERODINE 1 MG TABLET PO SCH ×2 (09:04→17:13)
[2023-08-31] MEDS: MIRALAX 17 GM POWD.PACK PO SCH ×2 (09:04→17:15)
[2023-08-31] MEDS: levETIRAcetam 500 MG/5 ML LIQUID UDC PO SCH ×2 (09:04→17:13)
[2023-08-31] MEDS: VITAMINS A AND D 5 GM UD PKT TP SCH ×2 (09:04→20:24)
[2023-08-31] MEDS: FERROUS SULFATE 325 MG TABEC PO SCH (09:04)
[2023-08-31] MEDS: FOLIC ACID 1 MG TABLET PO SCH (09:04)
[2023-08-31] MEDS: ASPIRIN 81 MG TAB.CHEW PO SCH (17:15)
[2023-08-31] MEDS: OMEGA-3 FATTY ACIDS/FISH OIL CAPSULE PO SCH (17:16)
[2023-08-31] MEDS: MAGNESIUM OXIDE 400 MG TABLET PO SCH (17:16)
[2023-08-31] MEDS: ATORVASTATIN 20 MG TABLET PO SCH (17:16)
[2023-08-31] MEDS: MULTIVIT, IRON, MIN NO. 8, FA TABLET PO SCH (17:17)
[2023-08-31] MEDS: CHOLECALCIFEROL 1,000 UNIT TABLET PO SCH (17:17)
[2023-08-31] MEDS: LATANOPROST OPHT DROP 2.5 ML BOTTLE EACHEYE SCH (20:24)
[2023-09-01] VITALS (10 sets, daily range): TEMP 97.6–98.8; O2SAT 98–99
[2023-09-01] MEDS: IPRATROPIUM/ALBUTEROL SULFATE 3 ML AMPUL.NEB NEB SCH ×4 (01:40→19:32)
[2023-09-01] MEDS: LEVOTHYROXINE SODIUM 112 MCG TABLET PO SCH (06:17)
[2023-09-01] MEDS: BUDESONIDE 0.5 MG/2 ML NEBU NEB SCH ×2 (07:30→19:32)
[2023-09-01] MEDS: HYDROGEN PEROXIDE 3% 118 ML BOTTLE TP SCH ×2 (08:55→19:32)
[2023-09-01] MEDS: FERROUS SULFATE 325 MG TABEC PO SCH (09:04)
[2023-09-01] MEDS: DORZOLAMIDE/TIMOLOL OPHT DROP 10 ML BOTTLE EACHEYE SCH ×2 (09:04→17:29)
[2023-09-01] MEDS: TOLTERODINE 1 MG TABLET PO SCH ×2 (09:04→17:29)
[2023-09-01] MEDS: levETIRAcetam 500 MG/5 ML LIQUID UDC PO SCH ×2 (09:05→17:29)
[2023-09-01] MEDS: FOLIC ACID 1 MG TABLET PO SCH (09:05)
[2023-09-01] MEDS: VITAMINS A AND D 5 GM UD PKT TP SCH ×2 (09:06→20:38)
[2023-09-01] MEDS: GUAIFENESIN SUGAR FREE 100 MG/5 ML UDC PO PRN ×2 (09:06→17:29)
[2023-09-01] MEDS: MIRALAX 17 GM POWD.PACK PO SCH ×2 (09:06→17:29)
[2023-09-01] MEDS: REMEDY ESSENTIAL ZINC PASTE 113 GM TP SCH ×2 (09:06→20:38)
[2023-09-01] MEDS: BENZONATATE 100 MG CAPSULE PO PRN ×2 (09:07→17:29)
[2023-09-01] MEDS: ASPIRIN 81 MG TAB.CHEW PO SCH (17:29)
[2023-09-01] MEDS: MAGNESIUM OXIDE 400 MG TABLET PO SCH (17:29)
[2023-09-01] MEDS: CHOLECALCIFEROL 1,000 UNIT TABLET PO SCH (17:29)
[2023-09-01] MEDS: MULTIVIT, IRON, MIN NO. 8, FA TABLET PO SCH (17:29)
[2023-09-01] MEDS: ATORVASTATIN 20 MG TABLET PO SCH (17:29)
[2023-09-01] MEDS: OMEGA-3 FATTY ACIDS/FISH OIL CAPSULE PO SCH (17:29)
[2023-09-01] MEDS: LATANOPROST OPHT DROP 2.5 ML BOTTLE EACHEYE SCH (20:38)
[2023-09-02] VITALS (11 sets, daily range): TEMP 97.6–97.8; O2SAT 98–99
[2023-09-02] MEDS: IPRATROPIUM/ALBUTEROL SULFATE 3 ML AMPUL.NEB NEB SCH ×4 (01:43→19:17)
[2023-09-02] MEDS: LEVOTHYROXINE SODIUM 112 MCG TABLET PO SCH (05:40)
[2023-09-02] MEDS: BUDESONIDE 0.5 MG/2 ML NEBU NEB SCH ×2 (07:56→19:17)
[2023-09-02] MEDS: HYDROGEN PEROXIDE 3% 118 ML BOTTLE TP SCH ×2 (07:56→19:17)
[2023-09-02] MEDS: FERROUS SULFATE 325 MG TABEC PO SCH (09:21)
[2023-09-02] MEDS: TOLTERODINE 1 MG TABLET PO SCH ×2 (09:21→17:06)
[2023-09-02] MEDS: DORZOLAMIDE/TIMOLOL OPHT DROP 10 ML BOTTLE EACHEYE SCH ×2 (09:21→16:26)
[2023-09-02] MEDS: FOLIC ACID 1 MG TABLET PO SCH (09:22)
[2023-09-02] MEDS: MIRALAX 17 GM POWD.PACK PO SCH ×2 (09:23→16:28)
[2023-09-02] MEDS: REMEDY ESSENTIAL ZINC PASTE 113 GM TP SCH ×2 (09:23→21:39)
[2023-09-02] MEDS: VITAMINS A AND D 5 GM UD PKT TP SCH ×2 (09:23→21:39)
[2023-09-02] MEDS: levETIRAcetam 500 MG/5 ML LIQUID UDC PO SCH ×2 (09:23→16:27)
[2023-09-02] MEDS: GUAIFENESIN SUGAR FREE 100 MG/5 ML UDC PO PRN (09:25)
[2023-09-02] MEDS: BENZONATATE 100 MG CAPSULE PO PRN ×2 (09:25→23:00)
[2023-09-02] MEDS: MAGNESIUM OXIDE 400 MG TABLET PO SCH (17:06)
[2023-09-02] MEDS: OMEGA-3 FATTY ACIDS/FISH OIL CAPSULE PO SCH (17:06)
[2023-09-02] MEDS: MULTIVIT, IRON, MIN NO. 8, FA TABLET PO SCH (17:06)
[2023-09-02] MEDS: ATORVASTATIN 20 MG TABLET PO SCH (17:06)
[2023-09-02] MEDS: ASPIRIN 81 MG TAB.CHEW PO SCH (17:06)
[2023-09-02] MEDS: CHOLECALCIFEROL 1,000 UNIT TABLET PO SCH (17:06)
[2023-09-02] MEDS: LATANOPROST OPHT DROP 2.5 ML BOTTLE EACHEYE SCH (21:39)
[2023-09-03] VITALS (10 sets, daily range): TEMP 97.6–97.8; O2SAT 98–100
[2023-09-03] MEDS: IPRATROPIUM/ALBUTEROL SULFATE 3 ML AMPUL.NEB NEB SCH ×4 (01:04→19:02)
[2023-09-03] MEDS: LEVOTHYROXINE SODIUM 112 MCG TABLET PO SCH (06:07)
[2023-09-03] MEDS: HYDROGEN PEROXIDE 3% 118 ML BOTTLE TP SCH (07:28)
[2023-09-03] MEDS: BUDESONIDE 0.5 MG/2 ML NEBU NEB SCH ×2 (07:28→19:02)
[2023-09-03] MEDS: FOLIC ACID 1 MG TABLET PO SCH (08:29)
[2023-09-03] MEDS: FERROUS SULFATE 325 MG TABEC PO SCH (08:29)
[2023-09-03] MEDS: TOLTERODINE 1 MG TABLET PO SCH ×2 (08:29→17:47)
[2023-09-03] MEDS: DORZOLAMIDE/TIMOLOL OPHT DROP 10 ML BOTTLE EACHEYE SCH ×2 (08:29→17:47)
[2023-09-03] MEDS: levETIRAcetam 500 MG/5 ML LIQUID UDC PO SCH ×2 (08:30→17:47)
[2023-09-03] MEDS: BENZONATATE 100 MG CAPSULE PO PRN ×2 (08:30→17:47)
[2023-09-03] MEDS: MIRALAX 17 GM POWD.PACK PO SCH ×2 (08:30→17:47)
[2023-09-03] MEDS: VITAMINS A AND D 5 GM UD PKT TP SCH ×2 (08:30→21:24)
[2023-09-03] MEDS: REMEDY ESSENTIAL ZINC PASTE 113 GM TP SCH ×2 (08:30→21:24)
[2023-09-03] MEDS: GUAIFENESIN SUGAR FREE 100 MG/5 ML UDC PO PRN ×2 (08:30→17:47)
[2023-09-03] MEDS: CHOLECALCIFEROL 1,000 UNIT TABLET PO SCH (17:47)
[2023-09-03] MEDS: MULTIVIT, IRON, MIN NO. 8, FA TABLET PO SCH (17:47)
[2023-09-03] MEDS: MAGNESIUM OXIDE 400 MG TABLET PO SCH (17:47)
[2023-09-03] MEDS: ASPIRIN 81 MG TAB.CHEW PO SCH (17:47)
[2023-09-03] MEDS: OMEGA-3 FATTY ACIDS/FISH OIL CAPSULE PO SCH (17:47)
[2023-09-03] MEDS: ATORVASTATIN 20 MG TABLET PO SCH (17:47)
[2023-09-03] MEDS: HYDROGEN PEROXIDE 3% 118 ML BOTTLE TP PRN (19:03)
[2023-09-03] MEDS: LATANOPROST OPHT DROP 2.5 ML BOTTLE EACHEYE SCH (21:24)
[2023-09-04] VITALS (11 sets, daily range): TEMP 97.1–97.7; O2SAT 98–99
[2023-09-04] MEDS: IPRATROPIUM/ALBUTEROL SULFATE 3 ML AMPUL.NEB NEB SCH ×4 (01:33→19:08)
[2023-09-04] MEDS: HYDROGEN PEROXIDE 3% 118 ML BOTTLE TP SCH ×3 (01:33→19:08)
[2023-09-04] MEDS: LEVOTHYROXINE SODIUM 112 MCG TABLET PO SCH (05:41)
[2023-09-04] MEDS: BUDESONIDE 0.5 MG/2 ML NEBU NEB SCH ×2 (08:08→19:08)
[2023-09-04] MEDS: DORZOLAMIDE/TIMOLOL OPHT DROP 10 ML BOTTLE EACHEYE SCH ×2 (09:49→17:00)
[2023-09-04] MEDS: FOLIC ACID 1 MG TABLET PO SCH (09:49)
[2023-09-04] MEDS: FERROUS SULFATE 325 MG TABEC PO SCH (09:49)
[2023-09-04] MEDS: TOLTERODINE 1 MG TABLET PO SCH ×2 (09:49→17:00)
[2023-09-04] MEDS: levETIRAcetam 500 MG/5 ML LIQUID UDC PO SCH ×2 (09:49→17:00)
[2023-09-04] MEDS: VITAMINS A AND D 5 GM UD PKT TP SCH ×2 (09:50→21:13)
[2023-09-04] MEDS: REMEDY ESSENTIAL ZINC PASTE 113 GM TP SCH ×2 (09:50→21:14)
[2023-09-04] MEDS: MIRALAX 17 GM POWD.PACK PO SCH ×2 (09:50→17:00)
[2023-09-04] MEDS: BENZONATATE 100 MG CAPSULE PO PRN (09:50)
[2023-09-04] MEDS: GUAIFENESIN SUGAR FREE 100 MG/5 ML UDC PO PRN (09:50)
[2023-09-04] MEDS: CHOLECALCIFEROL 1,000 UNIT TABLET PO SCH (18:43)
[2023-09-04] MEDS: ATORVASTATIN 20 MG TABLET PO SCH (18:43)
[2023-09-04] MEDS: MULTIVIT, IRON, MIN NO. 8, FA TABLET PO SCH (18:43)
[2023-09-04] MEDS: MAGNESIUM OXIDE 400 MG TABLET PO SCH (18:43)
[2023-09-04] MEDS: OMEGA-3 FATTY ACIDS/FISH OIL CAPSULE PO SCH (18:43)
[2023-09-04] MEDS: ASPIRIN 81 MG TAB.CHEW PO SCH (18:44)
[2023-09-04] MEDS: LATANOPROST OPHT DROP 2.5 ML BOTTLE EACHEYE SCH ×2 (21:00→21:14)
[2023-09-05] VITALS (13 sets, daily range): TEMP 97.3–97.8; O2SAT 98–99
[2023-09-05] MEDS: IPRATROPIUM/ALBUTEROL SULFATE 3 ML AMPUL.NEB NEB SCH ×4 (01:10→19:11)
[2023-09-05] MEDS: LEVOTHYROXINE SODIUM 112 MCG TABLET PO SCH (05:42)
[2023-09-05] MEDS: BUDESONIDE 0.5 MG/2 ML NEBU NEB SCH ×2 (07:22→19:11)
[2023-09-05] MEDS: HYDROGEN PEROXIDE 3% 118 ML BOTTLE TP SCH ×2 (07:22→19:11)
[2023-09-05] MEDS: DORZOLAMIDE/TIMOLOL OPHT DROP 10 ML BOTTLE EACHEYE SCH ×2 (09:43→16:39)
[2023-09-05] MEDS: TOLTERODINE 1 MG TABLET PO SCH ×2 (09:44→16:40)
[2023-09-05] MEDS: FERROUS SULFATE 325 MG TABEC PO SCH (09:45)
[2023-09-05] MEDS: FOLIC ACID 1 MG TABLET PO SCH (09:45)
[2023-09-05] MEDS: levETIRAcetam 500 MG/5 ML LIQUID UDC PO SCH ×2 (09:45→16:40)
[2023-09-05] MEDS: MIRALAX 17 GM POWD.PACK PO SCH ×2 (09:46→16:40)
[2023-09-05] MEDS: REMEDY ESSENTIAL ZINC PASTE 113 GM TP SCH ×2 (09:47→20:04)
[2023-09-05] MEDS: VITAMINS A AND D 5 GM UD PKT TP SCH ×2 (09:47→20:05)
[2023-09-05] MEDS: BENZONATATE 100 MG CAPSULE PO PRN ×2 (09:47→16:43)
[2023-09-05] MEDS: GUAIFENESIN SUGAR FREE 100 MG/5 ML UDC PO PRN (16:44)
[2023-09-05] MEDS: ASPIRIN 81 MG TAB.CHEW PO SCH (17:01)
[2023-09-05] MEDS: MULTIVIT, IRON, MIN NO. 8, FA TABLET PO SCH (17:01)
[2023-09-05] MEDS: MAGNESIUM OXIDE 400 MG TABLET PO SCH (17:01)
[2023-09-05] MEDS: OMEGA-3 FATTY ACIDS/FISH OIL CAPSULE PO SCH (17:01)
[2023-09-05] MEDS: ATORVASTATIN 20 MG TABLET PO SCH (17:01)
[2023-09-05] MEDS: CHOLECALCIFEROL 1,000 UNIT TABLET PO SCH (17:01)
[2023-09-05] MEDS: LATANOPROST OPHT DROP 2.5 ML BOTTLE EACHEYE SCH (20:04)
[2023-09-06] VITALS (10 sets, daily range): TEMP 97.7–97.8; O2SAT 98–99
[2023-09-06] MEDS: IPRATROPIUM/ALBUTEROL SULFATE 3 ML AMPUL.NEB NEB SCH ×4 (00:32→19:09)
[2023-09-06] MEDS: LEVOTHYROXINE SODIUM 112 MCG TABLET PO SCH (06:31)
[2023-09-06] MEDS: BUDESONIDE 0.5 MG/2 ML NEBU NEB SCH ×2 (07:26→19:09)
[2023-09-06] MEDS: HYDROGEN PEROXIDE 3% 118 ML BOTTLE TP SCH ×2 (07:27→19:10)
[2023-09-06] MEDS: FERROUS SULFATE 325 MG TABEC PO SCH (09:53)
[2023-09-06] MEDS: DORZOLAMIDE/TIMOLOL OPHT DROP 10 ML BOTTLE EACHEYE SCH ×2 (09:53→17:24)
[2023-09-06] MEDS: FOLIC ACID 1 MG TABLET PO SCH (09:54)
[2023-09-06] MEDS: levETIRAcetam 500 MG/5 ML LIQUID UDC PO SCH ×2 (09:54→17:24)
[2023-09-06] MEDS: MIRALAX 17 GM POWD.PACK PO SCH ×2 (09:55→17:24)
[2023-09-06] MEDS: BENZONATATE 100 MG CAPSULE PO PRN ×2 (09:58→17:25)
[2023-09-06] MEDS: GUAIFENESIN SUGAR FREE 100 MG/5 ML UDC PO PRN ×2 (09:58→17:25)
[2023-09-06] MEDS: REMEDY ESSENTIAL ZINC PASTE 113 GM TP SCH ×2 (09:58→20:56)
[2023-09-06] MEDS: VITAMINS A AND D 5 GM UD PKT TP SCH ×2 (09:58→20:56)
[2023-09-06] MEDS: TOLTERODINE 1 MG TABLET PO SCH ×2 (09:59→17:24)
[2023-09-06] MEDS: ASPIRIN 81 MG TAB.CHEW PO SCH (17:24)
[2023-09-06] MEDS: ATORVASTATIN 20 MG TABLET PO SCH (17:25)
[2023-09-06] MEDS: CHOLECALCIFEROL 1,000 UNIT TABLET PO SCH (17:25)
[2023-09-06] MEDS: MULTIVIT, IRON, MIN NO. 8, FA TABLET PO SCH (17:25)
[2023-09-06] MEDS: OMEGA-3 FATTY ACIDS/FISH OIL CAPSULE PO SCH (17:25)
[2023-09-06] MEDS: MAGNESIUM OXIDE 400 MG TABLET PO SCH (17:25)
[2023-09-06] MEDS: LATANOPROST OPHT DROP 2.5 ML BOTTLE EACHEYE SCH (20:56)
[2023-09-07] VITALS (11 sets, daily range): TEMP 98.2–98.6; O2SAT 98–99
[2023-09-07] MEDS: IPRATROPIUM/ALBUTEROL SULFATE 3 ML AMPUL.NEB NEB SCH ×4 (00:35→19:35)
[2023-09-07] MEDS: LEVOTHYROXINE SODIUM 112 MCG TABLET PO SCH (06:19)
[2023-09-07] MEDS: HYDROGEN PEROXIDE 3% 118 ML BOTTLE TP SCH ×2 (07:40→19:35)
[2023-09-07] MEDS: BUDESONIDE 0.5 MG/2 ML NEBU NEB SCH ×2 (07:40→19:35)
[2023-09-07] MEDS: DORZOLAMIDE/TIMOLOL OPHT DROP 10 ML BOTTLE EACHEYE SCH ×2 (09:37→17:05)
[2023-09-07] MEDS: FERROUS SULFATE 325 MG TABEC PO SCH (09:37)
[2023-09-07] MEDS: TOLTERODINE 1 MG TABLET PO SCH ×2 (09:37→17:05)
[2023-09-07] MEDS: MIRALAX 17 GM POWD.PACK PO SCH ×2 (09:38→17:06)
[2023-09-07] MEDS: levETIRAcetam 500 MG/5 ML LIQUID UDC PO SCH ×2 (09:38→17:05)
[2023-09-07] MEDS: REMEDY ESSENTIAL ZINC PASTE 113 GM TP SCH ×2 (09:38→21:14)
[2023-09-07] MEDS: VITAMINS A AND D 5 GM UD PKT TP SCH ×2 (09:38→21:14)
[2023-09-07] MEDS: FOLIC ACID 1 MG TABLET PO SCH (09:38)
[2023-09-07] MEDS: BENZONATATE 100 MG CAPSULE PO PRN ×2 (09:39→17:07)
[2023-09-07] MEDS: GUAIFENESIN SUGAR FREE 100 MG/5 ML UDC PO PRN ×2 (09:39→17:07)
[2023-09-07] MEDS: CHOLECALCIFEROL 1,000 UNIT TABLET PO SCH (17:06)
[2023-09-07] MEDS: OMEGA-3 FATTY ACIDS/FISH OIL CAPSULE PO SCH (17:06)
[2023-09-07] MEDS: MULTIVIT, IRON, MIN NO. 8, FA TABLET PO SCH (17:06)
[2023-09-07] MEDS: ATORVASTATIN 20 MG TABLET PO SCH (17:06)
[2023-09-07] MEDS: ASPIRIN 81 MG TAB.CHEW PO SCH (17:06)
[2023-09-07] MEDS: MAGNESIUM OXIDE 400 MG TABLET PO SCH (17:06)
[2023-09-07] MEDS: LATANOPROST OPHT DROP 2.5 ML BOTTLE EACHEYE SCH (20:01)
[2023-09-08] VITALS (12 sets, daily range): TEMP 97.6–97.8; O2SAT 97–99
[2023-09-08] MEDS: IPRATROPIUM/ALBUTEROL SULFATE 3 ML AMPUL.NEB NEB SCH ×4 (00:31→19:14)
[2023-09-08] MEDS: LEVOTHYROXINE SODIUM 112 MCG TABLET PO SCH (05:42)
[2023-09-08] MEDS: BUDESONIDE 0.5 MG/2 ML NEBU NEB SCH ×2 (07:51→19:14)
[2023-09-08] MEDS: MIRALAX 17 GM POWD.PACK PO SCH ×2 (09:00→17:38)
[2023-09-08] MEDS: VITAMINS A AND D 5 GM UD PKT TP SCH ×2 (09:00→21:41)
[2023-09-08] MEDS: levETIRAcetam 500 MG/5 ML LIQUID UDC PO SCH ×2 (09:00→17:38)
[2023-09-08] MEDS: REMEDY ESSENTIAL ZINC PASTE 113 GM TP SCH ×2 (09:00→21:41)
[2023-09-08] MEDS: FOLIC ACID 1 MG TABLET PO SCH (09:00)
[2023-09-08] MEDS: TOLTERODINE 1 MG TABLET PO SCH ×2 (09:00→17:38)
[2023-09-08] MEDS: HYDROGEN PEROXIDE 3% 118 ML BOTTLE TP SCH ×2 (09:25→19:14)
[2023-09-08] MEDS: DORZOLAMIDE/TIMOLOL OPHT DROP 10 ML BOTTLE EACHEYE SCH ×2 (10:00→17:37)
[2023-09-08] MEDS: FERROUS SULFATE 325 MG TABEC PO SCH (10:00)
[2023-09-08] MEDS: GUAIFENESIN SUGAR FREE 100 MG/5 ML UDC PO PRN (11:39)
[2023-09-08] MEDS: MULTIVIT, IRON, MIN NO. 8, FA TABLET PO SCH (17:45)
[2023-09-08] MEDS: ASPIRIN 81 MG TAB.CHEW PO SCH (17:45)
[2023-09-08] MEDS: ATORVASTATIN 20 MG TABLET PO SCH (17:45)
[2023-09-08] MEDS: MAGNESIUM OXIDE 400 MG TABLET PO SCH (17:45)
[2023-09-08] MEDS: OMEGA-3 FATTY ACIDS/FISH OIL CAPSULE PO SCH (17:45)
[2023-09-08] MEDS: CHOLECALCIFEROL 1,000 UNIT TABLET PO SCH (17:46)
[2023-09-08] MEDS: LATANOPROST OPHT DROP 2.5 ML BOTTLE EACHEYE SCH (21:41)
[2023-09-09] VITALS (11 sets, daily range): TEMP 97.6–98.6; O2SAT 98–99
[2023-09-09] MEDS: IPRATROPIUM/ALBUTEROL SULFATE 3 ML AMPUL.NEB NEB SCH ×4 (01:36→19:10)
[2023-09-09] MEDS: LEVOTHYROXINE SODIUM 112 MCG TABLET PO SCH (06:16)
[2023-09-09 07:17] LABS: BASOPHILS % (AUTO) 0.3 % (0.0-2.0); DIFFERENTIAL COMMENT 0; EOSINOPHILS # (AUTO) 0.2 K/uL (0.0-0.7); EOSINOPHILS % (AUTO) 4.3 % (0.0-7.0); HEMATOCRIT 33.3 % (31.2-41.9); HEMOGLOBIN 11.1 g/dL (10.9-14.3); LYMPHOCYTES # (AUTO) 1.3 K/uL (0.8-4.8); LYMPHOCYTES % (AUTO) 23.7 % (20.5-51.5); MEAN CORPUSCULAR HEMOGLOBIN 29.4 uug (24.7-32.8); MEAN CORPUSCULAR HGB CONC 33 g/dL (32.3-35.6); MEAN CORPUSCULAR VOLUME 88.5 fL (75.5-95.3); MONOCYTES # (AUTO) 0.7 K/uL (0.1-1.30); MONOCYTES % (AUTO) 12.2 % (0.0-11.0); NEUTROPHILS # (AUTO) 3.3 K/uL (1.8-8.9); NEUTROPHILS % (AUTO) 59.5 % (38.5-71.5); PLATELET COUNT (AUTO) 209 K/uL (179-408); RED BLOOD CELL COUNT(AUTO) 3.76 MIL/uL (3.63-4.92); RED CELL DISTRIBUTION WIDTH 15.3 % (12.3-17.7); WHITE BLOOD COUNT (AUTO) 5.5 K/uL (3.8-11.8)
[2023-09-09] MEDS: HYDROGEN PEROXIDE 3% 118 ML BOTTLE TP SCH ×2 (07:36→19:10)
[2023-09-09] MEDS: BUDESONIDE 0.5 MG/2 ML NEBU NEB SCH ×2 (07:36→19:10)
[2023-09-09 07:50] LABS: CALCIUM 8.9 mg/dL (8.5-10.1); CARBON DIOXIDE 35 mmol/L (21-32); CHLORIDE 98 mmol/L (98-107); CREATININE 0.7 mg/dL (0.6-1.3); GLUCOSE 98 mg/dL (74-106); MAGNESIUM 1.9 mg/dL (1.8-2.4); PHOSPHOROUS 4.4 mg/dL (2.5-4.9); POTASSIUM 4.5 mmol/L (3.5-5.1); SODIUM SERUM 134 mmol/L (136-145); UREA NITROGEN, BLOOD 12 mg/dL (7-18)
[2023-09-09] MEDS: GUAIFENESIN SUGAR FREE 100 MG/5 ML UDC PO PRN ×2 (09:41→16:53)
[2023-09-09] MEDS: FERROUS SULFATE 325 MG TABEC PO SCH (09:41)
[2023-09-09] MEDS: FOLIC ACID 1 MG TABLET PO SCH (09:41)
[2023-09-09] MEDS: TOLTERODINE 1 MG TABLET PO SCH ×2 (09:41→16:45)
[2023-09-09] MEDS: BENZONATATE 100 MG CAPSULE PO PRN ×2 (09:42→16:53)
[2023-09-09] MEDS: levETIRAcetam 500 MG/5 ML LIQUID UDC PO SCH ×2 (09:44→16:46)
[2023-09-09] MEDS: MIRALAX 17 GM POWD.PACK PO SCH ×2 (09:45→16:47)
[2023-09-09] MEDS: REMEDY ESSENTIAL ZINC PASTE 113 GM TP SCH ×2 (09:46→21:01)
[2023-09-09] MEDS: VITAMINS A AND D 5 GM UD PKT TP SCH ×2 (09:46→21:01)
[2023-09-09] MEDS: DORZOLAMIDE/TIMOLOL OPHT DROP 10 ML BOTTLE EACHEYE SCH ×2 (09:47→16:45)
[2023-09-09] MEDS: OMEGA-3 FATTY ACIDS/FISH OIL CAPSULE PO SCH (16:48)
[2023-09-09] MEDS: ASPIRIN 81 MG TAB.CHEW PO SCH (16:49)
[2023-09-09] MEDS: ATORVASTATIN 20 MG TABLET PO SCH (16:50)
[2023-09-09] MEDS: MAGNESIUM OXIDE 400 MG TABLET PO SCH (16:51)
[2023-09-09] MEDS: CHOLECALCIFEROL 1,000 UNIT TABLET PO SCH (16:51)
[2023-09-09] MEDS: MULTIVIT, IRON, MIN NO. 8, FA TABLET PO SCH (16:51)
[2023-09-09] MEDS: LATANOPROST OPHT DROP 2.5 ML BOTTLE EACHEYE SCH (21:01)
[2023-09-10] VITALS (10 sets, daily range): TEMP 97.5–97.8; O2SAT 98–99
[2023-09-10] MEDS: IPRATROPIUM/ALBUTEROL SULFATE 3 ML AMPUL.NEB NEB SCH ×4 (01:12→19:04)
[2023-09-10] MEDS: LEVOTHYROXINE SODIUM 112 MCG TABLET PO SCH (05:42)
[2023-09-10] MEDS: BUDESONIDE 0.5 MG/2 ML NEBU NEB SCH ×2 (07:21→19:04)
[2023-09-10] MEDS: HYDROGEN PEROXIDE 3% 118 ML BOTTLE TP SCH ×2 (08:57→20:41)
[2023-09-10] MEDS: TOLTERODINE 1 MG TABLET PO SCH ×2 (09:55→17:11)
[2023-09-10] MEDS: DORZOLAMIDE/TIMOLOL OPHT DROP 10 ML BOTTLE EACHEYE SCH ×2 (09:55→17:13)
[2023-09-10] MEDS: FOLIC ACID 1 MG TABLET PO SCH (09:56)
[2023-09-10] MEDS: FERROUS SULFATE 325 MG TABEC PO SCH (09:56)
[2023-09-10] MEDS: REMEDY ESSENTIAL ZINC PASTE 113 GM TP SCH ×2 (09:58→21:00)
[2023-09-10] MEDS: levETIRAcetam 500 MG/5 ML LIQUID UDC PO SCH ×2 (09:58→16:57)
[2023-09-10] MEDS: VITAMINS A AND D 5 GM UD PKT TP SCH ×2 (09:58→21:00)
[2023-09-10] MEDS: MIRALAX 17 GM POWD.PACK PO SCH ×2 (09:58→16:58)
[2023-09-10] MEDS: BENZONATATE 100 MG CAPSULE PO PRN ×2 (10:05→17:16)
[2023-09-10] MEDS: GUAIFENESIN SUGAR FREE 100 MG/5 ML UDC PO PRN ×2 (10:05→17:16)
[2023-09-10] MEDS: ASPIRIN 81 MG TAB.CHEW PO SCH (17:00)
[2023-09-10] MEDS: OMEGA-3 FATTY ACIDS/FISH OIL CAPSULE PO SCH (17:00)
[2023-09-10] MEDS: ATORVASTATIN 20 MG TABLET PO SCH (17:01)
[2023-09-10] MEDS: MAGNESIUM OXIDE 400 MG TABLET PO SCH (17:02)
[2023-09-10] MEDS: CHOLECALCIFEROL 1,000 UNIT TABLET PO SCH (17:07)
[2023-09-10] MEDS: MULTIVIT, IRON, MIN NO. 8, FA TABLET PO SCH (17:07)
[2023-09-10] MEDS: LATANOPROST OPHT DROP 2.5 ML BOTTLE EACHEYE SCH (21:00)
[2023-09-11] VITALS (9 sets, daily range): TEMP 97.6–97.8; O2SAT 98–100
[2023-09-11] MEDS: IPRATROPIUM/ALBUTEROL SULFATE 3 ML AMPUL.NEB NEB SCH ×4 (01:02→19:09)
[2023-09-11] MEDS: LEVOTHYROXINE SODIUM 112 MCG TABLET PO SCH (05:58)
[2023-09-11] MEDS: BUDESONIDE 0.5 MG/2 ML NEBU NEB SCH ×2 (08:08→19:10)
[2023-09-11] MEDS: HYDROGEN PEROXIDE 3% 118 ML BOTTLE TP SCH ×2 (09:00→19:10)
[2023-09-11] MEDS: REMEDY ESSENTIAL ZINC PASTE 113 GM TP SCH ×2 (09:16→21:04)
[2023-09-11] MEDS: FERROUS SULFATE 325 MG TABEC PO SCH (09:16)
[2023-09-11] MEDS: TOLTERODINE 1 MG TABLET PO SCH ×2 (09:16→17:28)
[2023-09-11] MEDS: VITAMINS A AND D 5 GM UD PKT TP SCH ×2 (09:16→21:04)
[2023-09-11] MEDS: DORZOLAMIDE/TIMOLOL OPHT DROP 10 ML BOTTLE EACHEYE SCH ×2 (09:16→17:28)
[2023-09-11] MEDS: MIRALAX 17 GM POWD.PACK PO SCH ×2 (09:16→17:28)
[2023-09-11] MEDS: FOLIC ACID 1 MG TABLET PO SCH (09:16)
[2023-09-11] MEDS: levETIRAcetam 500 MG/5 ML LIQUID UDC PO SCH ×2 (09:16→17:28)
[2023-09-11] MEDS: BENZONATATE 100 MG CAPSULE PO PRN (09:17)
[2023-09-11] MEDS: GUAIFENESIN SUGAR FREE 100 MG/5 ML UDC PO PRN (09:17)
[2023-09-11] MEDS: OMEGA-3 FATTY ACIDS/FISH OIL CAPSULE PO SCH (17:28)
[2023-09-11] MEDS: MULTIVIT, IRON, MIN NO. 8, FA TABLET PO SCH (17:28)
[2023-09-11] MEDS: CHOLECALCIFEROL 1,000 UNIT TABLET PO SCH (17:28)
[2023-09-11] MEDS: MAGNESIUM OXIDE 400 MG TABLET PO SCH (17:28)
[2023-09-11] MEDS: ATORVASTATIN 20 MG TABLET PO SCH (17:28)
[2023-09-11] MEDS: ASPIRIN 81 MG TAB.CHEW PO SCH (17:28)
[2023-09-11] MEDS: LATANOPROST OPHT DROP 2.5 ML BOTTLE EACHEYE SCH (20:58)
[2023-09-12] VITALS (9 sets, daily range): TEMP 98.1; O2SAT 97–99
[2023-09-12] MEDS: IPRATROPIUM/ALBUTEROL SULFATE 3 ML AMPUL.NEB NEB SCH ×4 (01:47→19:07)
[2023-09-12] MEDS: LEVOTHYROXINE SODIUM 112 MCG TABLET PO SCH (06:29)
[2023-09-12] MEDS: BUDESONIDE 0.5 MG/2 ML NEBU NEB SCH ×2 (07:17→19:07)
[2023-09-12] MEDS: HYDROGEN PEROXIDE 3% 118 ML BOTTLE TP SCH ×2 (07:17→21:25)
[2023-09-12] MEDS: DORZOLAMIDE/TIMOLOL OPHT DROP 10 ML BOTTLE EACHEYE SCH ×2 (09:18→16:15)
[2023-09-12] MEDS: levETIRAcetam 500 MG/5 ML LIQUID UDC PO SCH ×2 (09:20→16:17)
[2023-09-12] MEDS: TOLTERODINE 1 MG TABLET PO SCH ×2 (09:20→16:17)
[2023-09-12] MEDS: MIRALAX 17 GM POWD.PACK PO SCH ×2 (09:20→16:19)
[2023-09-12] MEDS: FERROUS SULFATE 325 MG TABEC PO SCH (09:20)
[2023-09-12] MEDS: FOLIC ACID 1 MG TABLET PO SCH (09:20)
[2023-09-12] MEDS: VITAMINS A AND D 5 GM UD PKT TP SCH ×2 (09:22→21:03)
[2023-09-12] MEDS: REMEDY ESSENTIAL ZINC PASTE 113 GM TP SCH ×2 (09:22→21:03)
[2023-09-12] MEDS: OMEGA-3 FATTY ACIDS/FISH OIL CAPSULE PO SCH (17:25)
[2023-09-12] MEDS: ATORVASTATIN 20 MG TABLET PO SCH (17:25)
[2023-09-12] MEDS: ASPIRIN 81 MG TAB.CHEW PO SCH (17:25)
[2023-09-12] MEDS: MULTIVIT, IRON, MIN NO. 8, FA TABLET PO SCH (17:26)
[2023-09-12] MEDS: CHOLECALCIFEROL 1,000 UNIT TABLET PO SCH (17:26)
[2023-09-12] MEDS: MAGNESIUM OXIDE 400 MG TABLET PO SCH (17:26)
[2023-09-12] MEDS: LATANOPROST OPHT DROP 2.5 ML BOTTLE EACHEYE SCH (21:03)
[2023-09-13] VITALS (10 sets, daily range): TEMP 97.5–98.2; O2SAT 98–99
[2023-09-13] MEDS: IPRATROPIUM/ALBUTEROL SULFATE 3 ML AMPUL.NEB NEB SCH ×4 (02:20→19:10)
[2023-09-13] MEDS: LEVOTHYROXINE SODIUM 112 MCG TABLET PO SCH (05:57)
[2023-09-13] MEDS: BUDESONIDE 0.5 MG/2 ML NEBU NEB SCH ×2 (07:41→19:10)
[2023-09-13] MEDS: HYDROGEN PEROXIDE 3% 118 ML BOTTLE TP SCH ×2 (08:48→19:10)
[2023-09-13] MEDS: DORZOLAMIDE/TIMOLOL OPHT DROP 10 ML BOTTLE EACHEYE SCH ×2 (09:38→16:45)
[2023-09-13] MEDS: TOLTERODINE 1 MG TABLET PO SCH ×2 (09:38→16:46)
[2023-09-13] MEDS: levETIRAcetam 500 MG/5 ML LIQUID UDC PO SCH ×2 (09:38→16:46)
[2023-09-13] MEDS: MIRALAX 17 GM POWD.PACK PO SCH ×2 (09:38→16:48)
[2023-09-13] MEDS: FERROUS SULFATE 325 MG TABEC PO SCH (09:38)
[2023-09-13] MEDS: FOLIC ACID 1 MG TABLET PO SCH (09:38)
[2023-09-13] MEDS: REMEDY ESSENTIAL ZINC PASTE 113 GM TP SCH ×2 (09:39→21:29)
[2023-09-13] MEDS: GUAIFENESIN SUGAR FREE 100 MG/5 ML UDC PO PRN ×2 (09:39→16:50)
[2023-09-13] MEDS: BENZONATATE 100 MG CAPSULE PO PRN (09:39)
[2023-09-13] MEDS: VITAMINS A AND D 5 GM UD PKT TP SCH ×2 (09:39→21:29)
[2023-09-13] MEDS: ASPIRIN 81 MG TAB.CHEW PO SCH (17:51)
[2023-09-13] MEDS: ATORVASTATIN 20 MG TABLET PO SCH (17:51)
[2023-09-13] MEDS: MAGNESIUM OXIDE 400 MG TABLET PO SCH (17:51)
[2023-09-13] MEDS: MULTIVIT, IRON, MIN NO. 8, FA TABLET PO SCH (17:51)
[2023-09-13] MEDS: OMEGA-3 FATTY ACIDS/FISH OIL CAPSULE PO SCH (17:51)
[2023-09-13] MEDS: CHOLECALCIFEROL 1,000 UNIT TABLET PO SCH (17:51)
[2023-09-13] MEDS: LATANOPROST OPHT DROP 2.5 ML BOTTLE EACHEYE SCH (21:28)
[2023-09-14] VITALS (10 sets, daily range): TEMP 97.6–98.1; O2SAT 98–99
[2023-09-14] MEDS: IPRATROPIUM/ALBUTEROL SULFATE 3 ML AMPUL.NEB NEB SCH ×4 (01:29→19:17)
[2023-09-14] MEDS: LEVOTHYROXINE SODIUM 112 MCG TABLET PO SCH (06:16)
[2023-09-14] MEDS: BUDESONIDE 0.5 MG/2 ML NEBU NEB SCH ×2 (08:14→19:17)
[2023-09-14] MEDS: HYDROGEN PEROXIDE 3% 118 ML BOTTLE TP SCH ×2 (08:14→19:17)
[2023-09-14] MEDS: DORZOLAMIDE/TIMOLOL OPHT DROP 10 ML BOTTLE EACHEYE SCH ×2 (09:06→17:04)
[2023-09-14] MEDS: TOLTERODINE 1 MG TABLET PO SCH ×2 (09:07→17:04)
[2023-09-14] MEDS: FOLIC ACID 1 MG TABLET PO SCH (09:07)
[2023-09-14] MEDS: levETIRAcetam 500 MG/5 ML LIQUID UDC PO SCH ×2 (09:07→17:04)
[2023-09-14] MEDS: FERROUS SULFATE 325 MG TABEC PO SCH (09:07)
[2023-09-14] MEDS: BENZONATATE 100 MG CAPSULE PO PRN (09:08)
[2023-09-14] MEDS: GUAIFENESIN SUGAR FREE 100 MG/5 ML UDC PO PRN (09:08)
[2023-09-14] MEDS: REMEDY ESSENTIAL ZINC PASTE 113 GM TP SCH ×2 (09:08→20:22)
[2023-09-14] MEDS: VITAMINS A AND D 5 GM UD PKT TP SCH ×2 (09:08→20:22)
[2023-09-14] MEDS: MIRALAX 17 GM POWD.PACK PO SCH ×2 (09:08→17:04)
[2023-09-14] MEDS: OMEGA-3 FATTY ACIDS/FISH OIL CAPSULE PO SCH (17:04)
[2023-09-14] MEDS: CHOLECALCIFEROL 1,000 UNIT TABLET PO SCH (17:04)
[2023-09-14] MEDS: ASPIRIN 81 MG TAB.CHEW PO SCH (17:04)
[2023-09-14] MEDS: ATORVASTATIN 20 MG TABLET PO SCH (17:04)
[2023-09-14] MEDS: MAGNESIUM OXIDE 400 MG TABLET PO SCH (17:04)
[2023-09-14] MEDS: MULTIVIT, IRON, MIN NO. 8, FA TABLET PO SCH (17:04)
[2023-09-14] MEDS: LATANOPROST OPHT DROP 2.5 ML BOTTLE EACHEYE SCH (20:22)
[2023-09-15] VITALS (10 sets, daily range): TEMP 97.2–97.9; O2SAT 97–99
[2023-09-15] MEDS: IPRATROPIUM/ALBUTEROL SULFATE 3 ML AMPUL.NEB NEB SCH ×4 (01:20→19:07)
[2023-09-15] MEDS: LEVOTHYROXINE SODIUM 112 MCG TABLET PO SCH (06:24)
[2023-09-15] MEDS: BUDESONIDE 0.5 MG/2 ML NEBU NEB SCH ×2 (07:09→19:07)
[2023-09-15] MEDS: HYDROGEN PEROXIDE 3% 118 ML BOTTLE TP SCH ×2 (07:10→19:07)
[2023-09-15] MEDS: DORZOLAMIDE/TIMOLOL OPHT DROP 10 ML BOTTLE EACHEYE SCH ×2 (08:58→16:20)
[2023-09-15] MEDS: TOLTERODINE 1 MG TABLET PO SCH ×2 (08:58→16:20)
[2023-09-15] MEDS: levETIRAcetam 500 MG/5 ML LIQUID UDC PO SCH ×2 (08:59→16:20)
[2023-09-15] MEDS: FERROUS SULFATE 325 MG TABEC PO SCH (08:59)
[2023-09-15] MEDS: FOLIC ACID 1 MG TABLET PO SCH (08:59)
[2023-09-15] MEDS: GUAIFENESIN SUGAR FREE 100 MG/5 ML UDC PO PRN ×2 (09:00→16:22)
[2023-09-15] MEDS: BENZONATATE 100 MG CAPSULE PO PRN ×2 (09:00→16:22)
[2023-09-15] MEDS: REMEDY ESSENTIAL ZINC PASTE 113 GM TP SCH ×2 (09:00→20:11)
[2023-09-15] MEDS: VITAMINS A AND D 5 GM UD PKT TP SCH ×2 (09:00→20:11)
[2023-09-15] MEDS: MIRALAX 17 GM POWD.PACK PO SCH ×2 (09:00→16:21)
[2023-09-15] MEDS: CHOLECALCIFEROL 1,000 UNIT TABLET PO SCH (17:15)
[2023-09-15] MEDS: ATORVASTATIN 20 MG TABLET PO SCH (17:15)
[2023-09-15] MEDS: OMEGA-3 FATTY ACIDS/FISH OIL CAPSULE PO SCH (17:15)
[2023-09-15] MEDS: ASPIRIN 81 MG TAB.CHEW PO SCH (17:15)
[2023-09-15] MEDS: MULTIVIT, IRON, MIN NO. 8, FA TABLET PO SCH (17:15)
[2023-09-15] MEDS: MAGNESIUM OXIDE 400 MG TABLET PO SCH (17:15)
[2023-09-15] MEDS: LATANOPROST OPHT DROP 2.5 ML BOTTLE EACHEYE SCH (20:11)
[2023-09-16] VITALS (10 sets, daily range): TEMP 97.8–97.9; O2SAT 97–99
[2023-09-16] MEDS: IPRATROPIUM/ALBUTEROL SULFATE 3 ML AMPUL.NEB NEB SCH ×4 (01:26→19:12)
[2023-09-16] MEDS: LEVOTHYROXINE SODIUM 112 MCG TABLET PO SCH (06:57)
[2023-09-16] MEDS: HYDROGEN PEROXIDE 3% 118 ML BOTTLE TP SCH ×2 (07:49→19:12)
[2023-09-16] MEDS: BUDESONIDE 0.5 MG/2 ML NEBU NEB SCH ×2 (07:49→19:12)
[2023-09-16] MEDS: FERROUS SULFATE 325 MG TABEC PO SCH (09:26)
[2023-09-16] MEDS: TOLTERODINE 1 MG TABLET PO SCH ×2 (09:26→16:36)
[2023-09-16] MEDS: MIRALAX 17 GM POWD.PACK PO SCH ×2 (09:26→16:36)
[2023-09-16] MEDS: FOLIC ACID 1 MG TABLET PO SCH (09:26)
[2023-09-16] MEDS: VITAMINS A AND D 5 GM UD PKT TP SCH ×2 (09:26→20:52)
[2023-09-16] MEDS: DORZOLAMIDE/TIMOLOL OPHT DROP 10 ML BOTTLE EACHEYE SCH ×2 (09:26→16:36)
[2023-09-16] MEDS: levETIRAcetam 500 MG/5 ML LIQUID UDC PO SCH ×2 (09:26→16:36)
[2023-09-16] MEDS: REMEDY ESSENTIAL ZINC PASTE 113 GM TP SCH ×2 (09:26→20:52)
[2023-09-16] MEDS: GUAIFENESIN SUGAR FREE 100 MG/5 ML UDC PO PRN (09:27)
[2023-09-16] MEDS: BENZONATATE 100 MG CAPSULE PO PRN ×2 (09:27→17:45)
[2023-09-16] MEDS: MAGNESIUM OXIDE 400 MG TABLET PO SCH (17:44)
[2023-09-16] MEDS: CHOLECALCIFEROL 1,000 UNIT TABLET PO SCH (17:44)
[2023-09-16] MEDS: ASPIRIN 81 MG TAB.CHEW PO SCH (17:44)
[2023-09-16] MEDS: ATORVASTATIN 20 MG TABLET PO SCH (17:44)
[2023-09-16] MEDS: MULTIVIT, IRON, MIN NO. 8, FA TABLET PO SCH (17:44)
[2023-09-16] MEDS: OMEGA-3 FATTY ACIDS/FISH OIL CAPSULE PO SCH (17:44)
[2023-09-16] MEDS: LATANOPROST OPHT DROP 2.5 ML BOTTLE EACHEYE SCH (20:52)
[2023-09-17] VITALS (10 sets, daily range): TEMP 97.9–98.1; O2SAT 97–99
[2023-09-17] MEDS: IPRATROPIUM/ALBUTEROL SULFATE 3 ML AMPUL.NEB NEB SCH ×4 (00:53→19:15)
[2023-09-17] MEDS: LEVOTHYROXINE SODIUM 112 MCG TABLET PO SCH (06:34)
[2023-09-17] MEDS: HYDROGEN PEROXIDE 3% 118 ML BOTTLE TP SCH ×2 (08:08→19:15)
[2023-09-17] MEDS: BUDESONIDE 0.5 MG/2 ML NEBU NEB SCH ×2 (08:08→19:15)
[2023-09-17] MEDS: MIRALAX 17 GM POWD.PACK PO SCH ×2 (09:00→16:23)
[2023-09-17] MEDS: levETIRAcetam 500 MG/5 ML LIQUID UDC PO SCH ×2 (09:00→16:23)
[2023-09-17] MEDS: REMEDY ESSENTIAL ZINC PASTE 113 GM TP SCH ×2 (09:00→20:02)
[2023-09-17] MEDS: DORZOLAMIDE/TIMOLOL OPHT DROP 10 ML BOTTLE EACHEYE SCH ×2 (09:00→16:20)
[2023-09-17] MEDS: VITAMINS A AND D 5 GM UD PKT TP SCH ×2 (09:00→20:02)
[2023-09-17] MEDS: FOLIC ACID 1 MG TABLET PO SCH (09:00)
[2023-09-17] MEDS: FERROUS SULFATE 325 MG TABEC PO SCH (09:00)
[2023-09-17] MEDS: TOLTERODINE 1 MG TABLET PO SCH ×2 (09:00→16:23)
[2023-09-17] MEDS: ATORVASTATIN 20 MG TABLET PO SCH (17:30)
[2023-09-17] MEDS: OMEGA-3 FATTY ACIDS/FISH OIL CAPSULE PO SCH (17:30)
[2023-09-17] MEDS: MULTIVIT, IRON, MIN NO. 8, FA TABLET PO SCH (17:30)
[2023-09-17] MEDS: ASPIRIN 81 MG TAB.CHEW PO SCH (17:30)
[2023-09-17] MEDS: MAGNESIUM OXIDE 400 MG TABLET PO SCH (17:30)
[2023-09-17] MEDS: CHOLECALCIFEROL 1,000 UNIT TABLET PO SCH (17:30)
[2023-09-17] MEDS: LATANOPROST OPHT DROP 2.5 ML BOTTLE EACHEYE SCH (20:02)
[2023-09-18] VITALS (10 sets, daily range): TEMP 96.8–98.4; O2SAT 97–99
[2023-09-18] MEDS: IPRATROPIUM/ALBUTEROL SULFATE 3 ML AMPUL.NEB NEB SCH ×4 (01:06→19:23)
[2023-09-18] MEDS: LEVOTHYROXINE SODIUM 112 MCG TABLET PO SCH (05:57)
[2023-09-18] MEDS: BUDESONIDE 0.5 MG/2 ML NEBU NEB SCH ×2 (08:12→19:23)
[2023-09-18] MEDS: DORZOLAMIDE/TIMOLOL OPHT DROP 10 ML BOTTLE EACHEYE SCH ×2 (09:12→17:10)
[2023-09-18] MEDS: levETIRAcetam 500 MG/5 ML LIQUID UDC PO SCH ×2 (09:12→17:10)
[2023-09-18] MEDS: FOLIC ACID 1 MG TABLET PO SCH (09:12)
[2023-09-18] MEDS: TOLTERODINE 1 MG TABLET PO SCH ×2 (09:12→17:10)
[2023-09-18] MEDS: FERROUS SULFATE 325 MG TABEC PO SCH (09:12)
[2023-09-18] MEDS: MIRALAX 17 GM POWD.PACK PO SCH ×2 (09:14→17:10)
[2023-09-18] MEDS: VITAMINS A AND D 5 GM UD PKT TP SCH ×2 (09:14→20:27)
[2023-09-18] MEDS: REMEDY ESSENTIAL ZINC PASTE 113 GM TP SCH ×2 (09:14→20:27)
[2023-09-18] MEDS: HYDROGEN PEROXIDE 3% 118 ML BOTTLE TP SCH ×2 (09:42→19:23)
[2023-09-18] MEDS: ASPIRIN 81 MG TAB.CHEW PO SCH (17:10)
[2023-09-18] MEDS: CHOLECALCIFEROL 1,000 UNIT TABLET PO SCH (17:10)
[2023-09-18] MEDS: MAGNESIUM OXIDE 400 MG TABLET PO SCH (17:10)
[2023-09-18] MEDS: MULTIVIT, IRON, MIN NO. 8, FA TABLET PO SCH (17:10)
[2023-09-18] MEDS: OMEGA-3 FATTY ACIDS/FISH OIL CAPSULE PO SCH (17:10)
[2023-09-18] MEDS: ATORVASTATIN 20 MG TABLET PO SCH (17:10)
[2023-09-18] MEDS: LATANOPROST OPHT DROP 2.5 ML BOTTLE EACHEYE SCH (20:27)
[2023-09-19] VITALS (10 sets, daily range): TEMP 97.6–98.4; O2SAT 98–99
[2023-09-19] MEDS: IPRATROPIUM/ALBUTEROL SULFATE 3 ML AMPUL.NEB NEB SCH ×4 (01:33→19:07)
[2023-09-19] MEDS: LEVOTHYROXINE SODIUM 112 MCG TABLET PO SCH (05:52)
[2023-09-19] MEDS: HYDROGEN PEROXIDE 3% 118 ML BOTTLE TP SCH ×2 (07:20→19:07)
[2023-09-19] MEDS: BUDESONIDE 0.5 MG/2 ML NEBU NEB SCH ×2 (07:20→19:07)
[2023-09-19] MEDS: DORZOLAMIDE/TIMOLOL OPHT DROP 10 ML BOTTLE EACHEYE SCH ×2 (09:32→16:49)
[2023-09-19] MEDS: TOLTERODINE 1 MG TABLET PO SCH ×2 (09:34→16:49)
[2023-09-19] MEDS: FERROUS SULFATE 325 MG TABEC PO SCH (09:34)
[2023-09-19] MEDS: FOLIC ACID 1 MG TABLET PO SCH (09:34)
[2023-09-19] MEDS: REMEDY ESSENTIAL ZINC PASTE 113 GM TP SCH ×2 (09:35→20:51)
[2023-09-19] MEDS: VITAMINS A AND D 5 GM UD PKT TP SCH ×2 (09:35→20:51)
[2023-09-19] MEDS: MIRALAX 17 GM POWD.PACK PO SCH ×2 (09:35→16:49)
[2023-09-19] MEDS: BENZONATATE 100 MG CAPSULE PO PRN (09:35)
[2023-09-19] MEDS: GUAIFENESIN SUGAR FREE 100 MG/5 ML UDC PO PRN ×2 (09:35→17:08)
[2023-09-19] MEDS: levETIRAcetam 500 MG/5 ML LIQUID UDC PO SCH ×2 (09:35→16:49)
[2023-09-19] MEDS: OMEGA-3 FATTY ACIDS/FISH OIL CAPSULE PO SCH (17:07)
[2023-09-19] MEDS: ASPIRIN 81 MG TAB.CHEW PO SCH (17:07)
[2023-09-19] MEDS: CHOLECALCIFEROL 1,000 UNIT TABLET PO SCH (17:08)
[2023-09-19] MEDS: MULTIVIT, IRON, MIN NO. 8, FA TABLET PO SCH (17:08)
[2023-09-19] MEDS: MAGNESIUM OXIDE 400 MG TABLET PO SCH (17:08)
[2023-09-19] MEDS: ATORVASTATIN 20 MG TABLET PO SCH (17:08)
[2023-09-19] MEDS: LATANOPROST OPHT DROP 2.5 ML BOTTLE EACHEYE SCH (20:51)
[2023-09-20] VITALS (10 sets, daily range): TEMP 97.9–98.9; O2SAT 98–99
[2023-09-20] MEDS: IPRATROPIUM/ALBUTEROL SULFATE 3 ML AMPUL.NEB NEB SCH ×4 (00:31→19:32)
[2023-09-20] MEDS: LEVOTHYROXINE SODIUM 112 MCG TABLET PO SCH (05:59)
[2023-09-20] MEDS: BUDESONIDE 0.5 MG/2 ML NEBU NEB SCH ×2 (07:40→19:32)
[2023-09-20] MEDS: HYDROGEN PEROXIDE 3% 118 ML BOTTLE TP SCH ×2 (07:40→19:32)
[2023-09-20] MEDS: DORZOLAMIDE/TIMOLOL OPHT DROP 10 ML BOTTLE EACHEYE SCH ×2 (09:25→17:27)
[2023-09-20] MEDS: FERROUS SULFATE 325 MG TABEC PO SCH (09:25)
[2023-09-20] MEDS: TOLTERODINE 1 MG TABLET PO SCH ×2 (09:25→17:27)
[2023-09-20] MEDS: levETIRAcetam 500 MG/5 ML LIQUID UDC PO SCH ×2 (09:25→17:28)
[2023-09-20] MEDS: VITAMINS A AND D 5 GM UD PKT TP SCH ×2 (09:25→20:23)
[2023-09-20] MEDS: REMEDY ESSENTIAL ZINC PASTE 113 GM TP SCH ×2 (09:25→20:23)
[2023-09-20] MEDS: MIRALAX 17 GM POWD.PACK PO SCH ×2 (09:25→17:28)
[2023-09-20] MEDS: FOLIC ACID 1 MG TABLET PO SCH (09:25)
[2023-09-20] MEDS: GUAIFENESIN SUGAR FREE 100 MG/5 ML UDC PO PRN (09:26)
[2023-09-20] MEDS: BENZONATATE 100 MG CAPSULE PO PRN (09:26)
[2023-09-20] MEDS: MULTIVIT, IRON, MIN NO. 8, FA TABLET PO SCH (17:28)
[2023-09-20] MEDS: CHOLECALCIFEROL 1,000 UNIT TABLET PO SCH (17:28)
[2023-09-20] MEDS: MAGNESIUM OXIDE 400 MG TABLET PO SCH (17:28)
[2023-09-20] MEDS: ATORVASTATIN 20 MG TABLET PO SCH (17:28)
[2023-09-20] MEDS: ASPIRIN 81 MG TAB.CHEW PO SCH (17:28)
[2023-09-20] MEDS: OMEGA-3 FATTY ACIDS/FISH OIL CAPSULE PO SCH (17:28)
[2023-09-20] MEDS: LATANOPROST OPHT DROP 2.5 ML BOTTLE EACHEYE SCH (20:23)
[2023-09-21] VITALS (10 sets, daily range): TEMP 97.1–98.4; O2SAT 97–99
[2023-09-21] MEDS: IPRATROPIUM/ALBUTEROL SULFATE 3 ML AMPUL.NEB NEB SCH ×4 (00:31→19:09)
[2023-09-21] MEDS: LEVOTHYROXINE SODIUM 112 MCG TABLET PO SCH (05:58)
[2023-09-21] MEDS: HYDROGEN PEROXIDE 3% 118 ML BOTTLE TP SCH ×2 (07:23→19:09)
[2023-09-21] MEDS: BUDESONIDE 0.5 MG/2 ML NEBU NEB SCH ×2 (07:23→19:09)
[2023-09-21] MEDS: FERROUS SULFATE 325 MG TABEC PO SCH (09:31)
[2023-09-21] MEDS: MIRALAX 17 GM POWD.PACK PO SCH ×2 (09:31→17:46)
[2023-09-21] MEDS: REMEDY ESSENTIAL ZINC PASTE 113 GM TP SCH ×2 (09:31→20:23)
[2023-09-21] MEDS: VITAMINS A AND D 5 GM UD PKT TP SCH ×2 (09:31→20:23)
[2023-09-21] MEDS: DORZOLAMIDE/TIMOLOL OPHT DROP 10 ML BOTTLE EACHEYE SCH ×2 (09:31→17:45)
[2023-09-21] MEDS: FOLIC ACID 1 MG TABLET PO SCH (09:31)
[2023-09-21] MEDS: levETIRAcetam 500 MG/5 ML LIQUID UDC PO SCH ×2 (09:31→17:46)
[2023-09-21] MEDS: TOLTERODINE 1 MG TABLET PO SCH ×2 (09:31→17:45)
[2023-09-21] MEDS: OMEGA-3 FATTY ACIDS/FISH OIL CAPSULE PO SCH (17:46)
[2023-09-21] MEDS: MULTIVIT, IRON, MIN NO. 8, FA TABLET PO SCH (17:46)
[2023-09-21] MEDS: ATORVASTATIN 20 MG TABLET PO SCH (17:46)
[2023-09-21] MEDS: CHOLECALCIFEROL 1,000 UNIT TABLET PO SCH (17:46)
[2023-09-21] MEDS: MAGNESIUM OXIDE 400 MG TABLET PO SCH (17:46)
[2023-09-21] MEDS: ASPIRIN 81 MG TAB.CHEW PO SCH (17:46)
[2023-09-21] MEDS: LATANOPROST OPHT DROP 2.5 ML BOTTLE EACHEYE SCH (20:23)
[2023-09-22] VITALS (9 sets, daily range): TEMP 98.5; O2SAT 98–99
[2023-09-22] MEDS: IPRATROPIUM/ALBUTEROL SULFATE 3 ML AMPUL.NEB NEB SCH ×4 (00:31→18:57)
[2023-09-22] MEDS: LEVOTHYROXINE SODIUM 112 MCG TABLET PO SCH (05:40)
[2023-09-22] MEDS: BUDESONIDE 0.5 MG/2 ML NEBU NEB SCH ×2 (07:16→18:57)
[2023-09-22] MEDS: HYDROGEN PEROXIDE 3% 118 ML BOTTLE TP SCH ×2 (07:16→18:57)
[2023-09-22] MEDS: FERROUS SULFATE 325 MG TABEC PO SCH (09:39)
[2023-09-22] MEDS: levETIRAcetam 500 MG/5 ML LIQUID UDC PO SCH ×2 (09:39→16:43)
[2023-09-22] MEDS: FOLIC ACID 1 MG TABLET PO SCH (09:39)
[2023-09-22] MEDS: REMEDY ESSENTIAL ZINC PASTE 113 GM TP SCH ×2 (09:39→20:22)
[2023-09-22] MEDS: VITAMINS A AND D 5 GM UD PKT TP SCH ×2 (09:39→20:22)
[2023-09-22] MEDS: TOLTERODINE 1 MG TABLET PO SCH ×2 (09:39→16:36)
[2023-09-22] MEDS: MIRALAX 17 GM POWD.PACK PO SCH ×2 (09:39→16:36)
[2023-09-22] MEDS: DORZOLAMIDE/TIMOLOL OPHT DROP 10 ML BOTTLE EACHEYE SCH ×2 (09:39→16:36)
[2023-09-22] MEDS: BENZONATATE 100 MG CAPSULE PO PRN (09:40)
[2023-09-22] MEDS: ASPIRIN 81 MG TAB.CHEW PO SCH (16:43)
[2023-09-22] MEDS: OMEGA-3 FATTY ACIDS/FISH OIL CAPSULE PO SCH (17:32)
[2023-09-22] MEDS: MAGNESIUM OXIDE 400 MG TABLET PO SCH (17:33)
[2023-09-22] MEDS: ATORVASTATIN 20 MG TABLET PO SCH (17:33)
[2023-09-22] MEDS: CHOLECALCIFEROL 1,000 UNIT TABLET PO SCH (17:33)
[2023-09-22] MEDS: MULTIVIT, IRON, MIN NO. 8, FA TABLET PO SCH (17:33)
[2023-09-22] MEDS: LATANOPROST OPHT DROP 2.5 ML BOTTLE EACHEYE SCH (20:22)
[2023-09-23] VITALS (11 sets, daily range): TEMP 98–99; O2SAT 98–99
[2023-09-23] MEDS: IPRATROPIUM/ALBUTEROL SULFATE 3 ML AMPUL.NEB NEB SCH ×4 (01:20→19:20)
[2023-09-23] MEDS: LEVOTHYROXINE SODIUM 112 MCG TABLET PO SCH (05:31)
[2023-09-23] MEDS: BUDESONIDE 0.5 MG/2 ML NEBU NEB SCH ×2 (08:20→19:20)
[2023-09-23] MEDS: HYDROGEN PEROXIDE 3% 118 ML BOTTLE TP SCH ×2 (08:21→19:20)
[2023-09-23] MEDS: GUAIFENESIN SUGAR FREE 100 MG/5 ML UDC PO PRN ×2 (09:45→17:25)
[2023-09-23] MEDS: FOLIC ACID 1 MG TABLET PO SCH (09:45)
[2023-09-23] MEDS: levETIRAcetam 500 MG/5 ML LIQUID UDC PO SCH ×2 (09:45→17:25)
[2023-09-23] MEDS: TOLTERODINE 1 MG TABLET PO SCH ×2 (09:45→17:25)
[2023-09-23] MEDS: REMEDY ESSENTIAL ZINC PASTE 113 GM TP SCH ×2 (09:45→21:50)
[2023-09-23] MEDS: MIRALAX 17 GM POWD.PACK PO SCH ×2 (09:45→17:25)
[2023-09-23] MEDS: VITAMINS A AND D 5 GM UD PKT TP SCH ×2 (09:45→21:50)
[2023-09-23] MEDS: BENZONATATE 100 MG CAPSULE PO PRN ×2 (09:45→17:25)
[2023-09-23] MEDS: FERROUS SULFATE 325 MG TABEC PO SCH (09:45)
[2023-09-23] MEDS: DORZOLAMIDE/TIMOLOL OPHT DROP 10 ML BOTTLE EACHEYE SCH ×2 (09:45→17:25)
[2023-09-23] MEDS ORDERED: COVID-19 VACC, SPIKEVAX (PHA) 50 MCG/0.5 ML VIAL IM ONE (14:00)
[2023-09-23] MEDS: MAGNESIUM OXIDE 400 MG TABLET PO SCH (17:25)
[2023-09-23] MEDS: ASPIRIN 81 MG TAB.CHEW PO SCH (17:25)
[2023-09-23] MEDS: ATORVASTATIN 20 MG TABLET PO SCH (17:25)
[2023-09-23] MEDS: MULTIVIT, IRON, MIN NO. 8, FA TABLET PO SCH (17:25)
[2023-09-23] MEDS: CHOLECALCIFEROL 1,000 UNIT TABLET PO SCH (17:25)
[2023-09-23] MEDS: OMEGA-3 FATTY ACIDS/FISH OIL CAPSULE PO SCH (17:25)
[2023-09-23] MEDS: LATANOPROST OPHT DROP 2.5 ML BOTTLE EACHEYE SCH (21:49)
[2023-09-23] MEDS: NYSTATIN CREAM 30 GM TUBE TP SCH (21:50)
[2023-09-23] MEDS: TRIAMCINOLONE ACET 0.1% CREAM 15 GM TUBE TP SCH (21:50)
[2023-09-24] VITALS (12 sets, daily range): TEMP 97.9–98.6; O2SAT 98–99
[2023-09-24] MEDS: IPRATROPIUM/ALBUTEROL SULFATE 3 ML AMPUL.NEB NEB SCH ×4 (01:31→19:14)
[2023-09-24] MEDS: LEVOTHYROXINE SODIUM 112 MCG TABLET PO SCH (05:51)
[2023-09-24] MEDS: BUDESONIDE 0.5 MG/2 ML NEBU NEB SCH ×2 (07:27→19:14)
[2023-09-24] MEDS: HYDROGEN PEROXIDE 3% 118 ML BOTTLE TP SCH ×2 (09:00→19:14)
[2023-09-24] MEDS: FERROUS SULFATE 325 MG TABEC PO SCH (09:39)
[2023-09-24] MEDS: levETIRAcetam 500 MG/5 ML LIQUID UDC PO SCH ×2 (09:39→17:24)
[2023-09-24] MEDS: FOLIC ACID 1 MG TABLET PO SCH (09:39)
[2023-09-24] MEDS: DORZOLAMIDE/TIMOLOL OPHT DROP 10 ML BOTTLE EACHEYE SCH ×2 (09:39→17:24)
[2023-09-24] MEDS: MIRALAX 17 GM POWD.PACK PO SCH ×2 (09:39→17:24)
[2023-09-24] MEDS: TOLTERODINE 1 MG TABLET PO SCH ×2 (09:39→17:24)
[2023-09-24] MEDS: TRIAMCINOLONE ACET 0.1% CREAM 15 GM TUBE TP SCH ×2 (09:40→20:50)
[2023-09-24] MEDS: VITAMINS A AND D 5 GM UD PKT TP SCH ×2 (09:40→20:51)
[2023-09-24] MEDS: NYSTATIN CREAM 30 GM TUBE TP SCH ×2 (09:40→20:51)
[2023-09-24] MEDS: REMEDY ESSENTIAL ZINC PASTE 113 GM TP SCH ×2 (09:40→20:51)
[2023-09-24] MEDS: OMEGA-3 FATTY ACIDS/FISH OIL CAPSULE PO SCH (17:24)
[2023-09-24] MEDS: CHOLECALCIFEROL 1,000 UNIT TABLET PO SCH (17:24)
[2023-09-24] MEDS: ATORVASTATIN 20 MG TABLET PO SCH (17:24)
[2023-09-24] MEDS: ASPIRIN 81 MG TAB.CHEW PO SCH (17:24)
[2023-09-24] MEDS: MAGNESIUM OXIDE 400 MG TABLET PO SCH (17:24)
[2023-09-24] MEDS: MULTIVIT, IRON, MIN NO. 8, FA TABLET PO SCH (17:24)
[2023-09-24] MEDS: LATANOPROST OPHT DROP 2.5 ML BOTTLE EACHEYE SCH (20:50)
[2023-09-25] VITALS (13 sets, daily range): TEMP 98–98.8; O2SAT 98–100
[2023-09-25] MEDS: IPRATROPIUM/ALBUTEROL SULFATE 3 ML AMPUL.NEB NEB SCH ×4 (00:42→19:10)
[2023-09-25] MEDS: LEVOTHYROXINE SODIUM 112 MCG TABLET PO SCH (06:58)
[2023-09-25] MEDS: BUDESONIDE 0.5 MG/2 ML NEBU NEB SCH ×2 (08:10→19:10)
[2023-09-25] MEDS: HYDROGEN PEROXIDE 3% 118 ML BOTTLE TP SCH ×2 (08:10→19:10)
[2023-09-25] MEDS: FERROUS SULFATE 325 MG TABEC PO SCH (09:53)
[2023-09-25] MEDS: levETIRAcetam 500 MG/5 ML LIQUID UDC PO SCH ×2 (09:53→16:39)
[2023-09-25] MEDS: TOLTERODINE 1 MG TABLET PO SCH ×2 (09:53→16:39)
[2023-09-25] MEDS: FOLIC ACID 1 MG TABLET PO SCH (09:53)
[2023-09-25] MEDS: DORZOLAMIDE/TIMOLOL OPHT DROP 10 ML BOTTLE EACHEYE SCH ×2 (09:53→16:39)
[2023-09-25] MEDS: NYSTATIN CREAM 30 GM TUBE TP SCH ×2 (09:54→20:23)
[2023-09-25] MEDS: MIRALAX 17 GM POWD.PACK PO SCH ×2 (09:54→16:40)
[2023-09-25] MEDS: VITAMINS A AND D 5 GM UD PKT TP SCH ×2 (09:54→20:23)
[2023-09-25] MEDS: TRIAMCINOLONE ACET 0.1% CREAM 15 GM TUBE TP SCH ×2 (09:54→20:23)
[2023-09-25] MEDS: REMEDY ESSENTIAL ZINC PASTE 113 GM TP SCH ×2 (09:54→20:23)
[2023-09-25] MEDS: GUAIFENESIN SUGAR FREE 100 MG/5 ML UDC PO PRN (16:46)
[2023-09-25] MEDS: BENZONATATE 100 MG CAPSULE PO PRN (17:00)
[2023-09-25] MEDS: ATORVASTATIN 20 MG TABLET PO SCH (17:00)
[2023-09-25] MEDS: ASPIRIN 81 MG TAB.CHEW PO SCH (17:00)
[2023-09-25] MEDS: MULTIVIT, IRON, MIN NO. 8, FA TABLET PO SCH (17:00)
[2023-09-25] MEDS: CHOLECALCIFEROL 1,000 UNIT TABLET PO SCH (17:00)
[2023-09-25] MEDS: OMEGA-3 FATTY ACIDS/FISH OIL CAPSULE PO SCH (17:00)
[2023-09-25] MEDS: MAGNESIUM OXIDE 400 MG TABLET PO SCH (17:00)
[2023-09-25] MEDS: LATANOPROST OPHT DROP 2.5 ML BOTTLE EACHEYE SCH (20:21)
[2023-09-26] VITALS (13 sets, daily range): TEMP 97.2–98.3; O2SAT 96–100
[2023-09-26] MEDS: IPRATROPIUM/ALBUTEROL SULFATE 3 ML AMPUL.NEB NEB SCH ×4 (00:42→19:10)
[2023-09-26] MEDS: LEVOTHYROXINE SODIUM 112 MCG TABLET PO SCH (06:14)
[2023-09-26] MEDS: BUDESONIDE 0.5 MG/2 ML NEBU NEB SCH ×2 (07:30→19:10)
[2023-09-26] MEDS: HYDROGEN PEROXIDE 3% 118 ML BOTTLE TP SCH ×2 (08:35→19:10)
[2023-09-26] MEDS: MIRALAX 17 GM POWD.PACK PO SCH ×2 (09:00→16:42)
[2023-09-26] MEDS: levETIRAcetam 500 MG/5 ML LIQUID UDC PO SCH ×2 (09:00→16:41)
[2023-09-26] MEDS: REMEDY ESSENTIAL ZINC PASTE 113 GM TP SCH ×2 (09:00→21:12)
[2023-09-26] MEDS: NYSTATIN CREAM 30 GM TUBE TP SCH ×2 (09:00→21:12)
[2023-09-26] MEDS: VITAMINS A AND D 5 GM UD PKT TP SCH ×2 (09:00→21:12)
[2023-09-26] MEDS: TRIAMCINOLONE ACET 0.1% CREAM 15 GM TUBE TP SCH ×2 (09:00→21:12)
[2023-09-26] MEDS: FERROUS SULFATE 325 MG TABEC PO SCH (09:00)
[2023-09-26] MEDS: DORZOLAMIDE/TIMOLOL OPHT DROP 10 ML BOTTLE EACHEYE SCH ×2 (09:57→16:44)
[2023-09-26] MEDS: TOLTERODINE 1 MG TABLET PO SCH ×2 (09:57→16:41)
[2023-09-26] MEDS: FOLIC ACID 1 MG TABLET PO SCH (09:58)
[2023-09-26] MEDS: BENZONATATE 100 MG CAPSULE PO PRN (10:16)
[2023-09-26] MEDS: GUAIFENESIN SUGAR FREE 100 MG/5 ML UDC PO PRN (10:17)
[2023-09-26] MEDS: MAGNESIUM OXIDE 400 MG TABLET PO SCH (18:13)
[2023-09-26] MEDS: CHOLECALCIFEROL 1,000 UNIT TABLET PO SCH (18:13)
[2023-09-26] MEDS: OMEGA-3 FATTY ACIDS/FISH OIL CAPSULE PO SCH (18:13)
[2023-09-26] MEDS: ATORVASTATIN 20 MG TABLET PO SCH (18:13)
[2023-09-26] MEDS: ASPIRIN 81 MG TAB.CHEW PO SCH (18:13)
[2023-09-26] MEDS: MULTIVIT, IRON, MIN NO. 8, FA TABLET PO SCH (18:13)
[2023-09-26] MEDS: LATANOPROST OPHT DROP 2.5 ML BOTTLE EACHEYE SCH (21:12)
[2023-09-27] VITALS (10 sets, daily range): TEMP 97.4–98; O2SAT 96–100
[2023-09-27] MEDS: IPRATROPIUM/ALBUTEROL SULFATE 3 ML AMPUL.NEB NEB SCH ×4 (01:34→19:20)
[2023-09-27] MEDS: LEVOTHYROXINE SODIUM 112 MCG TABLET PO SCH (06:05)
[2023-09-27] MEDS: HYDROGEN PEROXIDE 3% 118 ML BOTTLE TP SCH ×2 (07:17→19:20)
[2023-09-27] MEDS: BUDESONIDE 0.5 MG/2 ML NEBU NEB SCH ×2 (07:17→19:20)
[2023-09-27] MEDS: DORZOLAMIDE/TIMOLOL OPHT DROP 10 ML BOTTLE EACHEYE SCH ×2 (09:00→16:21)
[2023-09-27] MEDS: FERROUS SULFATE 325 MG TABEC PO SCH (09:00)
[2023-09-27] MEDS: NYSTATIN CREAM 30 GM TUBE TP SCH ×2 (09:00→21:00)
[2023-09-27] MEDS: MIRALAX 17 GM POWD.PACK PO SCH ×2 (09:00→16:22)
[2023-09-27] MEDS: TRIAMCINOLONE ACET 0.1% CREAM 15 GM TUBE TP SCH ×2 (09:00→21:00)
[2023-09-27] MEDS: VITAMINS A AND D 5 GM UD PKT TP SCH ×2 (09:00→21:00)
[2023-09-27] MEDS: FOLIC ACID 1 MG TABLET PO SCH (09:00)
[2023-09-27] MEDS: REMEDY ESSENTIAL ZINC PASTE 113 GM TP SCH ×2 (09:00→21:00)
[2023-09-27] MEDS: levETIRAcetam 500 MG/5 ML LIQUID UDC PO SCH ×2 (09:00→16:21)
[2023-09-27] MEDS: TOLTERODINE 1 MG TABLET PO SCH ×2 (09:00→16:21)
[2023-09-27] MEDS: BENZONATATE 100 MG CAPSULE PO PRN ×2 (10:13→16:44)
[2023-09-27] MEDS: GUAIFENESIN SUGAR FREE 100 MG/5 ML UDC PO PRN ×2 (10:17→16:44)
[2023-09-27] MEDS: MAGNESIUM OXIDE 400 MG TABLET PO SCH (18:17)
[2023-09-27] MEDS: ASPIRIN 81 MG TAB.CHEW PO SCH (18:17)
[2023-09-27] MEDS: ATORVASTATIN 20 MG TABLET PO SCH (18:17)
[2023-09-27] MEDS: MULTIVIT, IRON, MIN NO. 8, FA TABLET PO SCH (18:17)
[2023-09-27] MEDS: CHOLECALCIFEROL 1,000 UNIT TABLET PO SCH (18:17)
[2023-09-27] MEDS: OMEGA-3 FATTY ACIDS/FISH OIL CAPSULE PO SCH (18:17)
[2023-09-27] MEDS: LATANOPROST OPHT DROP 2.5 ML BOTTLE EACHEYE SCH (21:00)
[2023-09-28] VITALS (10 sets, daily range): TEMP 97.7–98.4; O2SAT 96–100
[2023-09-28] MEDS: IPRATROPIUM/ALBUTEROL SULFATE 3 ML AMPUL.NEB NEB SCH ×4 (01:24→19:07)
[2023-09-28] MEDS: LEVOTHYROXINE SODIUM 112 MCG TABLET PO SCH (06:51)
[2023-09-28] MEDS: BUDESONIDE 0.5 MG/2 ML NEBU NEB SCH ×2 (07:49→19:07)
[2023-09-28] MEDS: HYDROGEN PEROXIDE 3% 118 ML BOTTLE TP SCH ×2 (08:49→19:07)
[2023-09-28] MEDS: FOLIC ACID 1 MG TABLET PO SCH (09:28)
[2023-09-28] MEDS: FERROUS SULFATE 325 MG TABEC PO SCH (09:28)
[2023-09-28] MEDS: DORZOLAMIDE/TIMOLOL OPHT DROP 10 ML BOTTLE EACHEYE SCH ×2 (09:28→16:16)
[2023-09-28] MEDS: TOLTERODINE 1 MG TABLET PO SCH ×2 (09:28→16:16)
[2023-09-28] MEDS: levETIRAcetam 500 MG/5 ML LIQUID UDC PO SCH ×2 (09:28→16:16)
[2023-09-28] MEDS: MIRALAX 17 GM POWD.PACK PO SCH ×2 (09:29→16:16)
[2023-09-28] MEDS: VITAMINS A AND D 5 GM UD PKT TP SCH ×2 (09:29→20:19)
[2023-09-28] MEDS: REMEDY ESSENTIAL ZINC PASTE 113 GM TP SCH ×2 (09:29→20:19)
[2023-09-28] MEDS: TRIAMCINOLONE ACET 0.1% CREAM 15 GM TUBE TP SCH ×2 (09:29→20:19)
[2023-09-28] MEDS: NYSTATIN CREAM 30 GM TUBE TP SCH ×2 (09:29→20:19)
[2023-09-28] MEDS: ATORVASTATIN 20 MG TABLET PO SCH (17:43)
[2023-09-28] MEDS: ASPIRIN 81 MG TAB.CHEW PO SCH (17:43)
[2023-09-28] MEDS: CHOLECALCIFEROL 1,000 UNIT TABLET PO SCH (17:43)
[2023-09-28] MEDS: MULTIVIT, IRON, MIN NO. 8, FA TABLET PO SCH (17:43)
[2023-09-28] MEDS: MAGNESIUM OXIDE 400 MG TABLET PO SCH (17:43)
[2023-09-28] MEDS: OMEGA-3 FATTY ACIDS/FISH OIL CAPSULE PO SCH (17:43)
[2023-09-28] MEDS: LATANOPROST OPHT DROP 2.5 ML BOTTLE EACHEYE SCH (20:19)
[2023-09-29] VITALS (10 sets, daily range): TEMP 97.9–98; O2SAT 96–99
[2023-09-29] MEDS: IPRATROPIUM/ALBUTEROL SULFATE 3 ML AMPUL.NEB NEB SCH ×4 (01:16→19:04)
[2023-09-29] MEDS: LEVOTHYROXINE SODIUM 112 MCG TABLET PO SCH (05:47)
[2023-09-29] MEDS: HYDROGEN PEROXIDE 3% 118 ML BOTTLE TP SCH ×2 (07:18→19:04)
[2023-09-29] MEDS: BUDESONIDE 0.5 MG/2 ML NEBU NEB SCH ×2 (07:18→19:05)
[2023-09-29] MEDS: NYSTATIN CREAM 30 GM TUBE TP SCH ×2 (09:16→21:00)
[2023-09-29] MEDS: VITAMINS A AND D 5 GM UD PKT TP SCH ×2 (09:16→21:00)
[2023-09-29] MEDS: FERROUS SULFATE 325 MG TABEC PO SCH (09:16)
[2023-09-29] MEDS: TRIAMCINOLONE ACET 0.1% CREAM 15 GM TUBE TP SCH ×2 (09:16→21:00)
[2023-09-29] MEDS: levETIRAcetam 500 MG/5 ML LIQUID UDC PO SCH ×2 (09:16→16:59)
[2023-09-29] MEDS: TOLTERODINE 1 MG TABLET PO SCH ×2 (09:16→16:59)
[2023-09-29] MEDS: MIRALAX 17 GM POWD.PACK PO SCH ×2 (09:16→16:59)
[2023-09-29] MEDS: FOLIC ACID 1 MG TABLET PO SCH (09:16)
[2023-09-29] MEDS: DORZOLAMIDE/TIMOLOL OPHT DROP 10 ML BOTTLE EACHEYE SCH ×2 (09:16→16:59)
[2023-09-29] MEDS: REMEDY ESSENTIAL ZINC PASTE 113 GM TP SCH ×2 (09:16→21:00)
[2023-09-29] MEDS: CHOLECALCIFEROL 1,000 UNIT TABLET PO SCH (17:18)
[2023-09-29] MEDS: MULTIVIT, IRON, MIN NO. 8, FA TABLET PO SCH (17:18)
[2023-09-29] MEDS: ASPIRIN 81 MG TAB.CHEW PO SCH (17:18)
[2023-09-29] MEDS: MAGNESIUM OXIDE 400 MG TABLET PO SCH (17:18)
[2023-09-29] MEDS: OMEGA-3 FATTY ACIDS/FISH OIL CAPSULE PO SCH (17:18)
[2023-09-29] MEDS: ATORVASTATIN 20 MG TABLET PO SCH (17:18)
[2023-09-29] MEDS: LATANOPROST OPHT DROP 2.5 ML BOTTLE EACHEYE SCH (21:00)
[2023-09-30] VITALS (10 sets, daily range): TEMP 97.7; O2SAT 96–99
[2023-09-30] MEDS: IPRATROPIUM/ALBUTEROL SULFATE 3 ML AMPUL.NEB NEB SCH ×4 (02:01→19:14)
[2023-09-30] MEDS: LEVOTHYROXINE SODIUM 112 MCG TABLET PO SCH (06:30)
[2023-09-30] MEDS: BUDESONIDE 0.5 MG/2 ML NEBU NEB SCH ×2 (08:03→19:14)
[2023-09-30] MEDS: HYDROGEN PEROXIDE 3% 118 ML BOTTLE TP SCH ×2 (08:03→19:14)
[2023-09-30] MEDS: TOLTERODINE 1 MG TABLET PO SCH ×2 (09:00→17:55)
[2023-09-30] MEDS: DORZOLAMIDE/TIMOLOL OPHT DROP 10 ML BOTTLE EACHEYE SCH ×2 (09:00→17:55)
[2023-09-30] MEDS: REMEDY ESSENTIAL ZINC PASTE 113 GM TP SCH ×2 (09:00→21:21)
[2023-09-30] MEDS: MIRALAX 17 GM POWD.PACK PO SCH ×2 (09:00→17:55)
[2023-09-30] MEDS: FERROUS SULFATE 325 MG TABEC PO SCH (09:00)
[2023-09-30] MEDS: TRIAMCINOLONE ACET 0.1% CREAM 15 GM TUBE TP SCH ×2 (09:00→21:20)
[2023-09-30] MEDS: FOLIC ACID 1 MG TABLET PO SCH (09:00)
[2023-09-30] MEDS: levETIRAcetam 500 MG/5 ML LIQUID UDC PO SCH ×2 (09:00→17:55)
[2023-09-30] MEDS: VITAMINS A AND D 5 GM UD PKT TP SCH ×2 (09:00→21:21)
[2023-09-30] MEDS: NYSTATIN CREAM 30 GM TUBE TP SCH ×2 (09:00→21:21)
[2023-09-30] MEDS: BENZONATATE 100 MG CAPSULE PO PRN (17:55)
[2023-09-30] MEDS: MAGNESIUM OXIDE 400 MG TABLET PO SCH (17:55)
[2023-09-30] MEDS: MULTIVIT, IRON, MIN NO. 8, FA TABLET PO SCH (17:55)
[2023-09-30] MEDS: GUAIFENESIN SUGAR FREE 100 MG/5 ML UDC PO PRN (17:55)
[2023-09-30] MEDS: ATORVASTATIN 20 MG TABLET PO SCH (17:55)
[2023-09-30] MEDS: CHOLECALCIFEROL 1,000 UNIT TABLET PO SCH (17:55)
[2023-09-30] MEDS: OMEGA-3 FATTY ACIDS/FISH OIL CAPSULE PO SCH (17:55)
[2023-09-30] MEDS: ASPIRIN 81 MG TAB.CHEW PO SCH (17:55)
[2023-09-30] MEDS: LATANOPROST OPHT DROP 2.5 ML BOTTLE EACHEYE SCH (21:20)
[2023-10-01] VITALS (10 sets, daily range): TEMP 97.6–98.7; O2SAT 96–99
[2023-10-01] MEDS: IPRATROPIUM/ALBUTEROL SULFATE 3 ML AMPUL.NEB NEB SCH ×4 (00:32→19:20)
[2023-10-01] MEDS: LEVOTHYROXINE SODIUM 112 MCG TABLET PO SCH (05:47)
[2023-10-01] MEDS: BUDESONIDE 0.5 MG/2 ML NEBU NEB SCH ×2 (07:14→19:20)
[2023-10-01] MEDS: TOLTERODINE 1 MG TABLET PO SCH ×2 (08:47→16:34)
[2023-10-01] MEDS: DORZOLAMIDE/TIMOLOL OPHT DROP 10 ML BOTTLE EACHEYE SCH ×2 (08:47→16:34)
[2023-10-01] MEDS: NYSTATIN CREAM 30 GM TUBE TP SCH ×2 (08:48→21:22)
[2023-10-01] MEDS: FERROUS SULFATE 325 MG TABEC PO SCH (08:48)
[2023-10-01] MEDS: levETIRAcetam 500 MG/5 ML LIQUID UDC PO SCH ×2 (08:48→16:34)
[2023-10-01] MEDS: MIRALAX 17 GM POWD.PACK PO SCH ×2 (08:48→16:34)
[2023-10-01] MEDS: VITAMINS A AND D 5 GM UD PKT TP SCH ×2 (08:48→21:22)
[2023-10-01] MEDS: REMEDY ESSENTIAL ZINC PASTE 113 GM TP SCH ×2 (08:48→21:22)
[2023-10-01] MEDS: FOLIC ACID 1 MG TABLET PO SCH (08:48)
[2023-10-01] MEDS: TRIAMCINOLONE ACET 0.1% CREAM 15 GM TUBE TP SCH ×2 (08:48→21:22)
[2023-10-01] MEDS: GUAIFENESIN SUGAR FREE 100 MG/5 ML UDC PO PRN ×2 (08:49→16:35)
[2023-10-01] MEDS: BENZONATATE 100 MG CAPSULE PO PRN ×2 (08:49→16:35)
[2023-10-01] MEDS: HYDROGEN PEROXIDE 3% 118 ML BOTTLE TP SCH ×2 (09:12→19:20)
[2023-10-01] MEDS: ATORVASTATIN 20 MG TABLET PO SCH (17:18)
[2023-10-01] MEDS: OMEGA-3 FATTY ACIDS/FISH OIL CAPSULE PO SCH (17:18)
[2023-10-01] MEDS: ASPIRIN 81 MG TAB.CHEW PO SCH (17:18)
[2023-10-01] MEDS: MAGNESIUM OXIDE 400 MG TABLET PO SCH (17:19)
[2023-10-01] MEDS: CHOLECALCIFEROL 1,000 UNIT TABLET PO SCH (17:19)
[2023-10-01] MEDS: MULTIVIT, IRON, MIN NO. 8, FA TABLET PO SCH (17:19)
[2023-10-01] MEDS: LATANOPROST OPHT DROP 2.5 ML BOTTLE EACHEYE SCH (21:22)
[2023-10-02] VITALS (9 sets, daily range): TEMP 97.1–97.8; O2SAT 97–99
[2023-10-02] MEDS: IPRATROPIUM/ALBUTEROL SULFATE 3 ML AMPUL.NEB NEB SCH ×4 (01:25→19:26)
[2023-10-02] MEDS: LEVOTHYROXINE SODIUM 112 MCG TABLET PO SCH (05:35)
[2023-10-02] MEDS: BUDESONIDE 0.5 MG/2 ML NEBU NEB SCH ×2 (07:26→19:26)
[2023-10-02] MEDS: HYDROGEN PEROXIDE 3% 118 ML BOTTLE TP SCH ×2 (07:27→21:57)
[2023-10-02] MEDS: DORZOLAMIDE/TIMOLOL OPHT DROP 10 ML BOTTLE EACHEYE SCH ×2 (09:09→16:46)
[2023-10-02] MEDS: TOLTERODINE 1 MG TABLET PO SCH ×2 (09:09→16:46)
[2023-10-02] MEDS: FOLIC ACID 1 MG TABLET PO SCH (09:09)
[2023-10-02] MEDS: FERROUS SULFATE 325 MG TABEC PO SCH (09:09)
[2023-10-02] MEDS: TRIAMCINOLONE ACET 0.1% CREAM 15 GM TUBE TP SCH ×2 (09:10→21:01)
[2023-10-02] MEDS: MIRALAX 17 GM POWD.PACK PO SCH ×2 (09:10→16:46)
[2023-10-02] MEDS: levETIRAcetam 500 MG/5 ML LIQUID UDC PO SCH ×2 (09:10→16:46)
[2023-10-02] MEDS: NYSTATIN CREAM 30 GM TUBE TP SCH ×2 (09:12→21:01)
[2023-10-02] MEDS: VITAMINS A AND D 5 GM UD PKT TP SCH ×2 (09:13→21:01)
[2023-10-02] MEDS: REMEDY ESSENTIAL ZINC PASTE 113 GM TP SCH ×2 (09:13→21:01)
[2023-10-02] MEDS: OMEGA-3 FATTY ACIDS/FISH OIL CAPSULE PO SCH (17:07)
[2023-10-02] MEDS: MULTIVIT, IRON, MIN NO. 8, FA TABLET PO SCH (17:07)
[2023-10-02] MEDS: MAGNESIUM OXIDE 400 MG TABLET PO SCH (17:07)
[2023-10-02] MEDS: ASPIRIN 81 MG TAB.CHEW PO SCH (17:07)
[2023-10-02] MEDS: ATORVASTATIN 20 MG TABLET PO SCH (17:07)
[2023-10-02] MEDS: CHOLECALCIFEROL 1,000 UNIT TABLET PO SCH (17:08)
[2023-10-02] MEDS: LATANOPROST OPHT DROP 2.5 ML BOTTLE EACHEYE SCH (21:01)
[2023-10-03] VITALS (10 sets, daily range): TEMP 97.8–98.1; O2SAT 98–99
[2023-10-03] MEDS: IPRATROPIUM/ALBUTEROL SULFATE 3 ML AMPUL.NEB NEB SCH ×4 (01:13→19:07)
[2023-10-03] MEDS: LEVOTHYROXINE SODIUM 112 MCG TABLET PO SCH (05:53)
[2023-10-03] MEDS: BUDESONIDE 0.5 MG/2 ML NEBU NEB SCH ×2 (07:22→19:07)
[2023-10-03] MEDS: HYDROGEN PEROXIDE 3% 118 ML BOTTLE TP SCH ×2 (07:22→19:07)
[2023-10-03] MEDS: TOLTERODINE 1 MG TABLET PO SCH ×2 (08:58→17:26)
[2023-10-03] MEDS: DORZOLAMIDE/TIMOLOL OPHT DROP 10 ML BOTTLE EACHEYE SCH ×2 (08:58→17:26)
[2023-10-03] MEDS: FOLIC ACID 1 MG TABLET PO SCH (08:58)
[2023-10-03] MEDS: FERROUS SULFATE 325 MG TABEC PO SCH (08:58)
[2023-10-03] MEDS: MIRALAX 17 GM POWD.PACK PO SCH ×2 (08:59→17:26)
[2023-10-03] MEDS: levETIRAcetam 500 MG/5 ML LIQUID UDC PO SCH ×2 (08:59→17:26)
[2023-10-03] MEDS: NYSTATIN CREAM 30 GM TUBE TP SCH (08:59)
[2023-10-03] MEDS: TRIAMCINOLONE ACET 0.1% CREAM 15 GM TUBE TP SCH (08:59)
[2023-10-03] MEDS: REMEDY ESSENTIAL ZINC PASTE 113 GM TP SCH ×2 (09:00→21:51)
[2023-10-03] MEDS: VITAMINS A AND D 5 GM UD PKT TP SCH ×2 (09:00→21:51)
[2023-10-03] MEDS: ATORVASTATIN 20 MG TABLET PO SCH (17:26)
[2023-10-03] MEDS: OMEGA-3 FATTY ACIDS/FISH OIL CAPSULE PO SCH (17:26)
[2023-10-03] MEDS: MAGNESIUM OXIDE 400 MG TABLET PO SCH (17:26)
[2023-10-03] MEDS: CHOLECALCIFEROL 1,000 UNIT TABLET PO SCH (17:26)
[2023-10-03] MEDS: ASPIRIN 81 MG TAB.CHEW PO SCH (17:26)
[2023-10-03] MEDS: MULTIVIT, IRON, MIN NO. 8, FA TABLET PO SCH (17:26)
[2023-10-03] MEDS: LATANOPROST OPHT DROP 2.5 ML BOTTLE EACHEYE SCH (21:51)
[2023-10-04] VITALS (10 sets, daily range): TEMP 97.5–98.3; O2SAT 98–99
[2023-10-04] MEDS: IPRATROPIUM/ALBUTEROL SULFATE 3 ML AMPUL.NEB NEB SCH ×4 (00:31→19:07)
[2023-10-04] MEDS: LEVOTHYROXINE SODIUM 112 MCG TABLET PO SCH (06:02)
[2023-10-04] MEDS: HYDROGEN PEROXIDE 3% 118 ML BOTTLE TP SCH ×2 (08:06→19:07)
[2023-10-04] MEDS: BUDESONIDE 0.5 MG/2 ML NEBU NEB SCH ×2 (08:06→19:07)
[2023-10-04] MEDS: FERROUS SULFATE 325 MG TABEC PO SCH (09:31)
[2023-10-04] MEDS: TOLTERODINE 1 MG TABLET PO SCH ×2 (09:31→17:20)
[2023-10-04] MEDS: DORZOLAMIDE/TIMOLOL OPHT DROP 10 ML BOTTLE EACHEYE SCH ×2 (09:31→17:20)
[2023-10-04] MEDS: levETIRAcetam 500 MG/5 ML LIQUID UDC PO SCH ×2 (09:32→17:20)
[2023-10-04] MEDS: FOLIC ACID 1 MG TABLET PO SCH (09:32)
[2023-10-04] MEDS: MIRALAX 17 GM POWD.PACK PO SCH ×2 (09:33→17:21)
[2023-10-04] MEDS: REMEDY ESSENTIAL ZINC PASTE 113 GM TP SCH ×2 (09:33→21:48)
[2023-10-04] MEDS: VITAMINS A AND D 5 GM UD PKT TP SCH ×2 (09:33→21:48)
[2023-10-04] MEDS: BENZONATATE 100 MG CAPSULE PO PRN ×2 (09:34→17:21)
[2023-10-04] MEDS: GUAIFENESIN SUGAR FREE 100 MG/5 ML UDC PO PRN ×2 (09:34→17:21)
[2023-10-04] MEDS: OMEGA-3 FATTY ACIDS/FISH OIL CAPSULE PO SCH (17:21)
[2023-10-04] MEDS: MULTIVIT, IRON, MIN NO. 8, FA TABLET PO SCH (17:21)
[2023-10-04] MEDS: ASPIRIN 81 MG TAB.CHEW PO SCH (17:21)
[2023-10-04] MEDS: CHOLECALCIFEROL 1,000 UNIT TABLET PO SCH (17:21)
[2023-10-04] MEDS: ATORVASTATIN 20 MG TABLET PO SCH (17:21)
[2023-10-04] MEDS: MAGNESIUM OXIDE 400 MG TABLET PO SCH (17:21)
[2023-10-04] MEDS: LATANOPROST OPHT DROP 2.5 ML BOTTLE EACHEYE SCH (21:48)
[2023-10-05] VITALS (10 sets, daily range): TEMP 97–98; O2SAT 98–99
[2023-10-05] MEDS: IPRATROPIUM/ALBUTEROL SULFATE 3 ML AMPUL.NEB NEB SCH ×4 (00:31→19:07)
[2023-10-05] MEDS: LEVOTHYROXINE SODIUM 112 MCG TABLET PO SCH (05:26)
[2023-10-05] MEDS: BUDESONIDE 0.5 MG/2 ML NEBU NEB SCH ×2 (07:20→19:07)
[2023-10-05] MEDS: HYDROGEN PEROXIDE 3% 118 ML BOTTLE TP SCH ×2 (07:20→19:07)
[2023-10-05] MEDS: DORZOLAMIDE/TIMOLOL OPHT DROP 10 ML BOTTLE EACHEYE SCH ×2 (09:15→16:06)
[2023-10-05] MEDS: TOLTERODINE 1 MG TABLET PO SCH ×2 (09:16→16:07)
[2023-10-05] MEDS: FERROUS SULFATE 325 MG TABEC PO SCH (09:17)
[2023-10-05] MEDS: FOLIC ACID 1 MG TABLET PO SCH (09:17)
[2023-10-05] MEDS: levETIRAcetam 500 MG/5 ML LIQUID UDC PO SCH ×2 (09:19→16:08)
[2023-10-05] MEDS: REMEDY ESSENTIAL ZINC PASTE 113 GM TP SCH ×2 (09:20→20:32)
[2023-10-05] MEDS: VITAMINS A AND D 5 GM UD PKT TP SCH ×2 (09:20→20:32)
[2023-10-05] MEDS: MIRALAX 17 GM POWD.PACK PO SCH ×2 (09:20→16:08)
[2023-10-05] MEDS: GUAIFENESIN SUGAR FREE 100 MG/5 ML UDC PO PRN ×2 (09:22→16:11)
[2023-10-05] MEDS: BENZONATATE 100 MG CAPSULE PO PRN ×2 (09:27→16:10)
[2023-10-05] MEDS: CHOLECALCIFEROL 1,000 UNIT TABLET PO SCH (18:10)
[2023-10-05] MEDS: ATORVASTATIN 20 MG TABLET PO SCH (18:10)
[2023-10-05] MEDS: OMEGA-3 FATTY ACIDS/FISH OIL CAPSULE PO SCH (18:10)
[2023-10-05] MEDS: MAGNESIUM OXIDE 400 MG TABLET PO SCH (18:10)
[2023-10-05] MEDS: ASPIRIN 81 MG TAB.CHEW PO SCH (18:10)
[2023-10-05] MEDS: MULTIVIT, IRON, MIN NO. 8, FA TABLET PO SCH (18:10)
[2023-10-05] MEDS: LATANOPROST OPHT DROP 2.5 ML BOTTLE EACHEYE SCH (20:32)
[2023-10-06] VITALS (10 sets, daily range): TEMP 97.8–98; O2SAT 98–99
[2023-10-06] MEDS: IPRATROPIUM/ALBUTEROL SULFATE 3 ML AMPUL.NEB NEB SCH ×4 (00:31→19:17)
[2023-10-06] MEDS: LEVOTHYROXINE SODIUM 112 MCG TABLET PO SCH (06:31)
[2023-10-06] MEDS: BUDESONIDE 0.5 MG/2 ML NEBU NEB SCH ×2 (07:08→19:17)
[2023-10-06] MEDS: HYDROGEN PEROXIDE 3% 118 ML BOTTLE TP SCH ×2 (07:08→21:41)
[2023-10-06 07:20] LABS: BASOPHILS % (AUTO) 0.6 % (0.0-2.0); EOSINOPHILS # (AUTO) 0.2 K/uL (0.0-0.7); EOSINOPHILS % (AUTO) 2.8 % (0.0-7.0); HEMATOCRIT 32.6 % (31.2-41.9); HEMOGLOBIN 10.9 g/dL (10.9-14.3); LYMPHOCYTES # (AUTO) 1.4 K/uL (0.8-4.8); LYMPHOCYTES % (AUTO) 25.2 % (20.5-51.5); MEAN CORPUSCULAR HEMOGLOBIN 29.6 uug (24.7-32.8); MEAN CORPUSCULAR HGB CONC 33 g/dL (32.3-35.6); MEAN CORPUSCULAR VOLUME 88.6 fL (75.5-95.3); MONOCYTES # (AUTO) 0.6 K/uL (0.1-1.30); MONOCYTES % (AUTO) 11.3 % (0.0-11.0); NEUTROPHILS # (AUTO) 3.3 K/uL (1.8-8.9); NEUTROPHILS % (AUTO) 60.1 % (38.5-71.5); PLATELET COUNT (AUTO) 196 K/uL (179-408); RED BLOOD CELL COUNT(AUTO) 3.68 MIL/uL (3.63-4.92); RED CELL DISTRIBUTION WIDTH 15.7 % (12.3-17.7); WHITE BLOOD COUNT (AUTO) 5.5 K/uL (3.8-11.8)
[2023-10-06 07:26] LABS: DIFFERENTIAL COMMENT 1
[2023-10-06 07:29] LABS: CALCIUM 8.6 mg/dL (8.5-10.1); CARBON DIOXIDE 31 mmol/L (21-32); CHLORIDE 100 mmol/L (98-107); CREATININE 0.5 mg/dL (0.6-1.3); GLUCOSE 94 mg/dL (74-106); MAGNESIUM 1.9 mg/dL (1.8-2.4); PHOSPHOROUS 4.3 mg/dL (2.5-4.9); POTASSIUM 4.2 mmol/L (3.5-5.1); SODIUM SERUM 138 mmol/L (136-145); UREA NITROGEN, BLOOD 15 mg/dL (7-18)
[2023-10-06] MEDS: REMEDY ESSENTIAL ZINC PASTE 113 GM TP SCH ×2 (09:34→20:12)
[2023-10-06] MEDS: TOLTERODINE 1 MG TABLET PO SCH ×2 (09:34→16:52)
[2023-10-06] MEDS: levETIRAcetam 500 MG/5 ML LIQUID UDC PO SCH ×2 (09:34→16:52)
[2023-10-06] MEDS: DORZOLAMIDE/TIMOLOL OPHT DROP 10 ML BOTTLE EACHEYE SCH ×2 (09:34→16:52)
[2023-10-06] MEDS: MIRALAX 17 GM POWD.PACK PO SCH ×2 (09:34→16:52)
[2023-10-06] MEDS: VITAMINS A AND D 5 GM UD PKT TP SCH ×2 (09:34→20:12)
[2023-10-06] MEDS: FERROUS SULFATE 325 MG TABEC PO SCH (09:34)
[2023-10-06] MEDS: FOLIC ACID 1 MG TABLET PO SCH (09:34)
[2023-10-06] MEDS: CHOLECALCIFEROL 1,000 UNIT TABLET PO SCH (17:24)
[2023-10-06] MEDS: ASPIRIN 81 MG TAB.CHEW PO SCH (17:24)
[2023-10-06] MEDS: MULTIVIT, IRON, MIN NO. 8, FA TABLET PO SCH (17:24)
[2023-10-06] MEDS: OMEGA-3 FATTY ACIDS/FISH OIL CAPSULE PO SCH (17:24)
[2023-10-06] MEDS: ATORVASTATIN 20 MG TABLET PO SCH (17:24)
[2023-10-06] MEDS: MAGNESIUM OXIDE 400 MG TABLET PO SCH (17:24)
[2023-10-06] MEDS: LATANOPROST OPHT DROP 2.5 ML BOTTLE EACHEYE SCH (20:11)
[2023-10-07] VITALS (9 sets, daily range): TEMP 97.9–98; O2SAT 97–99
[2023-10-07] MEDS: IPRATROPIUM/ALBUTEROL SULFATE 3 ML AMPUL.NEB NEB SCH ×4 (01:33→19:19)
[2023-10-07] MEDS: LEVOTHYROXINE SODIUM 112 MCG TABLET PO SCH (06:39)
[2023-10-07] MEDS: HYDROGEN PEROXIDE 3% 118 ML BOTTLE TP SCH ×2 (07:37→19:19)
[2023-10-07] MEDS: BUDESONIDE 0.5 MG/2 ML NEBU NEB SCH ×2 (07:37→19:19)
[2023-10-07] MEDS: DORZOLAMIDE/TIMOLOL OPHT DROP 10 ML BOTTLE EACHEYE SCH ×2 (09:45→16:36)
[2023-10-07] MEDS: FERROUS SULFATE 325 MG TABEC PO SCH (09:45)
[2023-10-07] MEDS: TOLTERODINE 1 MG TABLET PO SCH ×2 (09:45→16:36)
[2023-10-07] MEDS: BENZONATATE 100 MG CAPSULE PO PRN (09:46)
[2023-10-07] MEDS: levETIRAcetam 500 MG/5 ML LIQUID UDC PO SCH ×2 (09:46→16:36)
[2023-10-07] MEDS: VITAMINS A AND D 5 GM UD PKT TP SCH ×2 (09:46→21:41)
[2023-10-07] MEDS: FOLIC ACID 1 MG TABLET PO SCH (09:46)
[2023-10-07] MEDS: REMEDY ESSENTIAL ZINC PASTE 113 GM TP SCH ×2 (09:46→21:41)
[2023-10-07] MEDS: GUAIFENESIN SUGAR FREE 100 MG/5 ML UDC PO PRN (09:46)
[2023-10-07] MEDS: MIRALAX 17 GM POWD.PACK PO SCH ×2 (09:46→16:36)
[2023-10-07] MEDS: ATORVASTATIN 20 MG TABLET PO SCH (18:25)
[2023-10-07] MEDS: ASPIRIN 81 MG TAB.CHEW PO SCH (18:25)
[2023-10-07] MEDS: OMEGA-3 FATTY ACIDS/FISH OIL CAPSULE PO SCH (18:25)
[2023-10-07] MEDS: CHOLECALCIFEROL 1,000 UNIT TABLET PO SCH (18:26)
[2023-10-07] MEDS: MAGNESIUM OXIDE 400 MG TABLET PO SCH (18:26)
[2023-10-07] MEDS: MULTIVIT, IRON, MIN NO. 8, FA TABLET PO SCH (18:26)
[2023-10-07] MEDS: LATANOPROST OPHT DROP 2.5 ML BOTTLE EACHEYE SCH (21:41)
[2023-10-08] VITALS (10 sets, daily range): TEMP 97.8–98.8; O2SAT 98–99
[2023-10-08] MEDS: IPRATROPIUM/ALBUTEROL SULFATE 3 ML AMPUL.NEB NEB SCH ×4 (01:28→19:30)
[2023-10-08] MEDS: LEVOTHYROXINE SODIUM 112 MCG TABLET PO SCH (05:31)
[2023-10-08] MEDS: BUDESONIDE 0.5 MG/2 ML NEBU NEB SCH ×2 (07:30→19:30)
[2023-10-08] MEDS: HYDROGEN PEROXIDE 3% 118 ML BOTTLE TP SCH ×2 (08:41→20:56)
[2023-10-08] MEDS: FOLIC ACID 1 MG TABLET PO SCH (08:55)
[2023-10-08] MEDS: FERROUS SULFATE 325 MG TABEC PO SCH (08:55)
[2023-10-08] MEDS: TOLTERODINE 1 MG TABLET PO SCH ×2 (08:55→17:13)
[2023-10-08] MEDS: levETIRAcetam 500 MG/5 ML LIQUID UDC PO SCH ×2 (08:56→17:13)
[2023-10-08] MEDS: REMEDY ESSENTIAL ZINC PASTE 113 GM TP SCH ×2 (08:57→21:56)
[2023-10-08] MEDS: MIRALAX 17 GM POWD.PACK PO SCH ×2 (08:57→17:13)
[2023-10-08] MEDS: VITAMINS A AND D 5 GM UD PKT TP SCH ×2 (08:57→21:56)
[2023-10-08] MEDS: DORZOLAMIDE/TIMOLOL OPHT DROP 10 ML BOTTLE EACHEYE SCH ×2 (09:02→17:13)
[2023-10-08] MEDS: MAGNESIUM OXIDE 400 MG TABLET PO SCH (17:13)
[2023-10-08] MEDS: OMEGA-3 FATTY ACIDS/FISH OIL CAPSULE PO SCH (17:13)
[2023-10-08] MEDS: ASPIRIN 81 MG TAB.CHEW PO SCH (17:13)
[2023-10-08] MEDS: ATORVASTATIN 20 MG TABLET PO SCH (17:13)
[2023-10-08] MEDS: MULTIVIT, IRON, MIN NO. 8, FA TABLET PO SCH (17:14)
[2023-10-08] MEDS: CHOLECALCIFEROL 1,000 UNIT TABLET PO SCH (17:14)
[2023-10-08] MEDS: LATANOPROST OPHT DROP 2.5 ML BOTTLE EACHEYE SCH (21:56)
[2023-10-09] VITALS (12 sets, daily range): TEMP 97.8–98; O2SAT 98–99
[2023-10-09] MEDS: IPRATROPIUM/ALBUTEROL SULFATE 3 ML AMPUL.NEB NEB SCH ×4 (01:29→19:09)
[2023-10-09] MEDS: LEVOTHYROXINE SODIUM 112 MCG TABLET PO SCH (05:50)
[2023-10-09] MEDS: BUDESONIDE 0.5 MG/2 ML NEBU NEB SCH ×2 (08:09→19:09)
[2023-10-09] MEDS: HYDROGEN PEROXIDE 3% 118 ML BOTTLE TP SCH ×2 (08:09→19:10)
[2023-10-09] MEDS: TOLTERODINE 1 MG TABLET PO SCH ×2 (09:44→16:43)
[2023-10-09] MEDS: DORZOLAMIDE/TIMOLOL OPHT DROP 10 ML BOTTLE EACHEYE SCH ×2 (09:44→16:43)
[2023-10-09] MEDS: FERROUS SULFATE 325 MG TABEC PO SCH (09:55)
[2023-10-09] MEDS: FOLIC ACID 1 MG TABLET PO SCH (09:55)
[2023-10-09] MEDS: MIRALAX 17 GM POWD.PACK PO SCH ×2 (09:56→16:45)
[2023-10-09] MEDS: levETIRAcetam 500 MG/5 ML LIQUID UDC PO SCH ×2 (09:56→16:45)
[2023-10-09] MEDS: REMEDY ESSENTIAL ZINC PASTE 113 GM TP SCH ×2 (09:57→21:56)
[2023-10-09] MEDS: VITAMINS A AND D 5 GM UD PKT TP SCH ×2 (09:57→21:56)
[2023-10-09] MEDS: ASPIRIN 81 MG TAB.CHEW PO SCH (17:29)
[2023-10-09] MEDS: ATORVASTATIN 20 MG TABLET PO SCH (17:29)
[2023-10-09] MEDS: MAGNESIUM OXIDE 400 MG TABLET PO SCH (17:29)
[2023-10-09] MEDS: OMEGA-3 FATTY ACIDS/FISH OIL CAPSULE PO SCH (17:29)
[2023-10-09] MEDS: MULTIVIT, IRON, MIN NO. 8, FA TABLET PO SCH (17:29)
[2023-10-09] MEDS: CHOLECALCIFEROL 1,000 UNIT TABLET PO SCH (17:30)
[2023-10-09] MEDS: LATANOPROST OPHT DROP 2.5 ML BOTTLE EACHEYE SCH (21:56)
[2023-10-10] VITALS (10 sets, daily range): TEMP 98.1; O2SAT 97–99
[2023-10-10] MEDS: IPRATROPIUM/ALBUTEROL SULFATE 3 ML AMPUL.NEB NEB SCH ×4 (00:30→19:23)
[2023-10-10] MEDS: LEVOTHYROXINE SODIUM 112 MCG TABLET PO SCH (06:05)
[2023-10-10] MEDS: BUDESONIDE 0.5 MG/2 ML NEBU NEB SCH ×2 (07:30→19:23)
[2023-10-10] MEDS: DORZOLAMIDE/TIMOLOL OPHT DROP 10 ML BOTTLE EACHEYE SCH ×2 (09:04→16:15)
[2023-10-10] MEDS: TOLTERODINE 1 MG TABLET PO SCH ×2 (09:04→16:15)
[2023-10-10] MEDS: FERROUS SULFATE 325 MG TABEC PO SCH (09:04)
[2023-10-10] MEDS: FOLIC ACID 1 MG TABLET PO SCH (09:05)
[2023-10-10] MEDS: levETIRAcetam 500 MG/5 ML LIQUID UDC PO SCH ×2 (09:05→16:15)
[2023-10-10] MEDS: BENZONATATE 100 MG CAPSULE PO PRN (09:06)
[2023-10-10] MEDS: VITAMINS A AND D 5 GM UD PKT TP SCH ×2 (09:06→21:59)
[2023-10-10] MEDS: REMEDY ESSENTIAL ZINC PASTE 113 GM TP SCH ×2 (09:06→21:58)
[2023-10-10] MEDS: MIRALAX 17 GM POWD.PACK PO SCH ×2 (09:06→16:15)
[2023-10-10] MEDS: HYDROGEN PEROXIDE 3% 118 ML BOTTLE TP SCH ×2 (09:30→21:30)
[2023-10-10] MEDS: MULTIVIT, IRON, MIN NO. 8, FA TABLET PO SCH (17:01)
[2023-10-10] MEDS: OMEGA-3 FATTY ACIDS/FISH OIL CAPSULE PO SCH (17:01)
[2023-10-10] MEDS: ASPIRIN 81 MG TAB.CHEW PO SCH (17:01)
[2023-10-10] MEDS: MAGNESIUM OXIDE 400 MG TABLET PO SCH (17:01)
[2023-10-10] MEDS: CHOLECALCIFEROL 1,000 UNIT TABLET PO SCH (17:01)
[2023-10-10] MEDS: ATORVASTATIN 20 MG TABLET PO SCH (17:01)
[2023-10-10] MEDS: LATANOPROST OPHT DROP 2.5 ML BOTTLE EACHEYE SCH (21:58)
[2023-10-11] VITALS (10 sets, daily range): TEMP 97.5–98.1; O2SAT 98–99
[2023-10-11] MEDS: IPRATROPIUM/ALBUTEROL SULFATE 3 ML AMPUL.NEB NEB SCH ×4 (01:37→19:17)
[2023-10-11] MEDS: LEVOTHYROXINE SODIUM 112 MCG TABLET PO SCH (05:07)
[2023-10-11] MEDS: BUDESONIDE 0.5 MG/2 ML NEBU NEB SCH ×2 (07:13→19:17)
[2023-10-11] MEDS: HYDROGEN PEROXIDE 3% 118 ML BOTTLE TP SCH ×2 (07:14→19:17)
[2023-10-11] MEDS: REMEDY ESSENTIAL ZINC PASTE 113 GM TP SCH ×2 (09:17→20:46)
[2023-10-11] MEDS: FOLIC ACID 1 MG TABLET PO SCH (09:17)
[2023-10-11] MEDS: DORZOLAMIDE/TIMOLOL OPHT DROP 10 ML BOTTLE EACHEYE SCH ×2 (09:17→16:14)
[2023-10-11] MEDS: levETIRAcetam 500 MG/5 ML LIQUID UDC PO SCH ×2 (09:17→16:15)
[2023-10-11] MEDS: TOLTERODINE 1 MG TABLET PO SCH ×2 (09:17→16:15)
[2023-10-11] MEDS: FERROUS SULFATE 325 MG TABEC PO SCH (09:17)
[2023-10-11] MEDS: VITAMINS A AND D 5 GM UD PKT TP SCH ×2 (09:17→20:46)
[2023-10-11] MEDS: MIRALAX 17 GM POWD.PACK PO SCH ×2 (09:17→16:15)
[2023-10-11] MEDS: BENZONATATE 100 MG CAPSULE PO PRN (16:17)
[2023-10-11] MEDS: GUAIFENESIN SUGAR FREE 100 MG/5 ML UDC PO PRN (16:17)
[2023-10-11] MEDS: ASPIRIN 81 MG TAB.CHEW PO SCH (17:26)
[2023-10-11] MEDS: MULTIVIT, IRON, MIN NO. 8, FA TABLET PO SCH (17:26)
[2023-10-11] MEDS: OMEGA-3 FATTY ACIDS/FISH OIL CAPSULE PO SCH (17:26)
[2023-10-11] MEDS: MAGNESIUM OXIDE 400 MG TABLET PO SCH (17:26)
[2023-10-11] MEDS: ATORVASTATIN 20 MG TABLET PO SCH (17:26)
[2023-10-11] MEDS: CHOLECALCIFEROL 1,000 UNIT TABLET PO SCH (17:26)
[2023-10-11] MEDS: LATANOPROST OPHT DROP 2.5 ML BOTTLE EACHEYE SCH (20:46)
[2023-10-12] VITALS (10 sets, daily range): TEMP 98.1–98.2; O2SAT 98–99
[2023-10-12] MEDS: IPRATROPIUM/ALBUTEROL SULFATE 3 ML AMPUL.NEB NEB SCH ×4 (01:24→19:13)
[2023-10-12] MEDS: LEVOTHYROXINE SODIUM 112 MCG TABLET PO SCH (05:42)
[2023-10-12] MEDS: BUDESONIDE 0.5 MG/2 ML NEBU NEB SCH ×2 (07:30→19:13)
[2023-10-12] MEDS: DORZOLAMIDE/TIMOLOL OPHT DROP 10 ML BOTTLE EACHEYE SCH ×2 (09:12→17:01)
[2023-10-12] MEDS: FOLIC ACID 1 MG TABLET PO SCH (09:13)
[2023-10-12] MEDS: TOLTERODINE 1 MG TABLET PO SCH ×2 (09:13→17:01)
[2023-10-12] MEDS: levETIRAcetam 500 MG/5 ML LIQUID UDC PO SCH ×2 (09:14→17:01)
[2023-10-12] MEDS: MIRALAX 17 GM POWD.PACK PO SCH ×2 (09:17→17:01)
[2023-10-12] MEDS: REMEDY ESSENTIAL ZINC PASTE 113 GM TP SCH ×2 (09:19→21:18)
[2023-10-12] MEDS: VITAMINS A AND D 5 GM UD PKT TP SCH ×2 (09:19→21:18)
[2023-10-12] MEDS: FERROUS SULFATE 325 MG TABEC PO SCH (09:20)
[2023-10-12] MEDS: GUAIFENESIN SUGAR FREE 100 MG/5 ML UDC PO PRN ×2 (09:21→17:01)
[2023-10-12] MEDS: BENZONATATE 100 MG CAPSULE PO PRN ×2 (09:22→17:01)
[2023-10-12] MEDS: HYDROGEN PEROXIDE 3% 118 ML BOTTLE TP SCH ×2 (09:58→21:18)
[2023-10-12] MEDS: ASPIRIN 81 MG TAB.CHEW PO SCH (17:01)
[2023-10-12] MEDS: OMEGA-3 FATTY ACIDS/FISH OIL CAPSULE PO SCH (17:01)
[2023-10-12] MEDS: ATORVASTATIN 20 MG TABLET PO SCH (17:01)
[2023-10-12] MEDS: MULTIVIT, IRON, MIN NO. 8, FA TABLET PO SCH (17:01)
[2023-10-12] MEDS: CHOLECALCIFEROL 1,000 UNIT TABLET PO SCH (17:01)
[2023-10-12] MEDS: MAGNESIUM OXIDE 400 MG TABLET PO SCH (17:01)
[2023-10-12] MEDS: LATANOPROST OPHT DROP 2.5 ML BOTTLE EACHEYE SCH (21:18)
[2023-10-13] VITALS (10 sets, daily range): TEMP 97.5–98.6; O2SAT 98–99
[2023-10-13] MEDS: IPRATROPIUM/ALBUTEROL SULFATE 3 ML AMPUL.NEB NEB SCH ×4 (01:34→19:09)
[2023-10-13] MEDS: LEVOTHYROXINE SODIUM 112 MCG TABLET PO SCH (05:46)
[2023-10-13] MEDS: BUDESONIDE 0.5 MG/2 ML NEBU NEB SCH ×2 (07:44→19:09)
[2023-10-13] MEDS: HYDROGEN PEROXIDE 3% 118 ML BOTTLE TP SCH ×2 (08:25→19:09)
[2023-10-13] MEDS: DORZOLAMIDE/TIMOLOL OPHT DROP 10 ML BOTTLE EACHEYE SCH ×2 (09:48→16:47)
[2023-10-13] MEDS: TOLTERODINE 1 MG TABLET PO SCH ×2 (09:48→16:47)
[2023-10-13] MEDS: levETIRAcetam 500 MG/5 ML LIQUID UDC PO SCH ×2 (09:49→16:47)
[2023-10-13] MEDS: FERROUS SULFATE 325 MG TABEC PO SCH (09:49)
[2023-10-13] MEDS: FOLIC ACID 1 MG TABLET PO SCH (09:49)
[2023-10-13] MEDS: VITAMINS A AND D 5 GM UD PKT TP SCH ×2 (09:50→21:03)
[2023-10-13] MEDS: MIRALAX 17 GM POWD.PACK PO SCH ×2 (09:50→16:48)
[2023-10-13] MEDS: REMEDY ESSENTIAL ZINC PASTE 113 GM TP SCH ×2 (09:50→21:03)
[2023-10-13] MEDS: GUAIFENESIN SUGAR FREE 100 MG/5 ML UDC PO PRN ×2 (09:51→17:00)
[2023-10-13] MEDS: BENZONATATE 100 MG CAPSULE PO PRN ×2 (09:51→17:00)
[2023-10-13] MEDS: CHOLECALCIFEROL 1,000 UNIT TABLET PO SCH (17:00)
[2023-10-13] MEDS: MAGNESIUM OXIDE 400 MG TABLET PO SCH (17:00)
[2023-10-13] MEDS: ASPIRIN 81 MG TAB.CHEW PO SCH (17:00)
[2023-10-13] MEDS: ATORVASTATIN 20 MG TABLET PO SCH (17:00)
[2023-10-13] MEDS: MULTIVIT, IRON, MIN NO. 8, FA TABLET PO SCH (17:00)
[2023-10-13] MEDS: OMEGA-3 FATTY ACIDS/FISH OIL CAPSULE PO SCH (17:07)
[2023-10-13] MEDS: LATANOPROST OPHT DROP 2.5 ML BOTTLE EACHEYE SCH (21:03)
[2023-10-14] VITALS (9 sets, daily range): TEMP 98; O2SAT 98–99
[2023-10-14] MEDS: IPRATROPIUM/ALBUTEROL SULFATE 3 ML AMPUL.NEB NEB SCH ×4 (01:59→19:13)
[2023-10-14] MEDS: LEVOTHYROXINE SODIUM 112 MCG TABLET PO SCH (06:31)
[2023-10-14] MEDS: BUDESONIDE 0.5 MG/2 ML NEBU NEB SCH ×2 (07:30→19:13)
[2023-10-14] MEDS: HYDROGEN PEROXIDE 3% 118 ML BOTTLE TP SCH ×2 (08:46→19:13)
[2023-10-14] MEDS: FERROUS SULFATE 325 MG TABEC PO SCH (09:18)
[2023-10-14] MEDS: TOLTERODINE 1 MG TABLET PO SCH ×2 (09:18→17:00)
[2023-10-14] MEDS: DORZOLAMIDE/TIMOLOL OPHT DROP 10 ML BOTTLE EACHEYE SCH ×2 (09:18→17:00)
[2023-10-14] MEDS: FOLIC ACID 1 MG TABLET PO SCH (09:18)
[2023-10-14] MEDS: levETIRAcetam 500 MG/5 ML LIQUID UDC PO SCH ×2 (09:19→17:00)
[2023-10-14] MEDS: MIRALAX 17 GM POWD.PACK PO SCH ×2 (09:19→17:00)
[2023-10-14] MEDS: BENZONATATE 100 MG CAPSULE PO PRN ×2 (09:20→17:03)
[2023-10-14] MEDS: VITAMINS A AND D 5 GM UD PKT TP SCH ×2 (09:20→21:17)
[2023-10-14] MEDS: GUAIFENESIN SUGAR FREE 100 MG/5 ML UDC PO PRN ×2 (09:20→17:03)
[2023-10-14] MEDS: REMEDY ESSENTIAL ZINC PASTE 113 GM TP SCH ×2 (09:20→21:17)
[2023-10-14] MEDS: MAGNESIUM OXIDE 400 MG TABLET PO SCH (17:00)
[2023-10-14] MEDS: ASPIRIN 81 MG TAB.CHEW PO SCH (17:00)
[2023-10-14] MEDS: OMEGA-3 FATTY ACIDS/FISH OIL CAPSULE PO SCH (17:00)
[2023-10-14] MEDS: ATORVASTATIN 20 MG TABLET PO SCH (17:00)
[2023-10-14] MEDS: MULTIVIT, IRON, MIN NO. 8, FA TABLET PO SCH (17:03)
[2023-10-14] MEDS: CHOLECALCIFEROL 1,000 UNIT TABLET PO SCH (17:03)
[2023-10-14] MEDS: LATANOPROST OPHT DROP 2.5 ML BOTTLE EACHEYE SCH (21:17)
[2023-10-15] VITALS (10 sets, daily range): TEMP 97.5–98; O2SAT 98–99
[2023-10-15] MEDS: IPRATROPIUM/ALBUTEROL SULFATE 3 ML AMPUL.NEB NEB SCH ×4 (00:31→19:19)
[2023-10-15] MEDS: LEVOTHYROXINE SODIUM 112 MCG TABLET PO SCH (06:13)
[2023-10-15] MEDS: BUDESONIDE 0.5 MG/2 ML NEBU NEB SCH ×2 (07:22→19:19)
[2023-10-15] MEDS: HYDROGEN PEROXIDE 3% 118 ML BOTTLE TP SCH ×2 (07:22→19:19)
[2023-10-15] MEDS: TOLTERODINE 1 MG TABLET PO SCH ×2 (09:14→16:37)
[2023-10-15] MEDS: DORZOLAMIDE/TIMOLOL OPHT DROP 10 ML BOTTLE EACHEYE SCH ×2 (09:14→16:37)
[2023-10-15] MEDS: levETIRAcetam 500 MG/5 ML LIQUID UDC PO SCH ×2 (09:15→16:37)
[2023-10-15] MEDS: FOLIC ACID 1 MG TABLET PO SCH (09:15)
[2023-10-15] MEDS: FERROUS SULFATE 325 MG TABEC PO SCH (09:15)
[2023-10-15] MEDS: MIRALAX 17 GM POWD.PACK PO SCH ×2 (09:16→16:38)
[2023-10-15] MEDS: REMEDY ESSENTIAL ZINC PASTE 113 GM TP SCH ×2 (09:17→21:23)
[2023-10-15] MEDS: GUAIFENESIN SUGAR FREE 100 MG/5 ML UDC PO PRN (09:17)
[2023-10-15] MEDS: VITAMINS A AND D 5 GM UD PKT TP SCH ×2 (09:17→21:23)
[2023-10-15] MEDS: BENZONATATE 100 MG CAPSULE PO PRN (09:17)
[2023-10-15] MEDS: OMEGA-3 FATTY ACIDS/FISH OIL CAPSULE PO SCH (18:56)
[2023-10-15] MEDS: ASPIRIN 81 MG TAB.CHEW PO SCH (18:56)
[2023-10-15] MEDS: ATORVASTATIN 20 MG TABLET PO SCH (18:56)
[2023-10-15] MEDS: MULTIVIT, IRON, MIN NO. 8, FA TABLET PO SCH (18:57)
[2023-10-15] MEDS: CHOLECALCIFEROL 1,000 UNIT TABLET PO SCH (18:57)
[2023-10-15] MEDS: MAGNESIUM OXIDE 400 MG TABLET PO SCH (18:57)
[2023-10-15] MEDS: LATANOPROST OPHT DROP 2.5 ML BOTTLE EACHEYE SCH (21:23)
[2023-10-16] VITALS (10 sets, daily range): TEMP 97.8–98.2; O2SAT 98–99
[2023-10-16] MEDS: IPRATROPIUM/ALBUTEROL SULFATE 3 ML AMPUL.NEB NEB SCH ×4 (01:02→19:05)
[2023-10-16] MEDS: LEVOTHYROXINE SODIUM 112 MCG TABLET PO SCH (05:37)
[2023-10-16] MEDS: HYDROGEN PEROXIDE 3% 118 ML BOTTLE TP SCH ×2 (07:17→20:59)
[2023-10-16] MEDS: BUDESONIDE 0.5 MG/2 ML NEBU NEB SCH ×2 (07:17→19:05)
[2023-10-16] MEDS: FERROUS SULFATE 325 MG TABEC PO SCH (09:51)
[2023-10-16] MEDS: TOLTERODINE 1 MG TABLET PO SCH ×2 (09:51→17:00)
[2023-10-16] MEDS: DORZOLAMIDE/TIMOLOL OPHT DROP 10 ML BOTTLE EACHEYE SCH ×2 (09:51→17:00)
[2023-10-16] MEDS: VITAMINS A AND D 5 GM UD PKT TP SCH ×2 (09:52→21:29)
[2023-10-16] MEDS: BENZONATATE 100 MG CAPSULE PO PRN ×2 (09:52→18:15)
[2023-10-16] MEDS: GUAIFENESIN SUGAR FREE 100 MG/5 ML UDC PO PRN ×2 (09:52→18:16)
[2023-10-16] MEDS: levETIRAcetam 500 MG/5 ML LIQUID UDC PO SCH ×2 (09:52→17:00)
[2023-10-16] MEDS: MIRALAX 17 GM POWD.PACK PO SCH ×2 (09:52→17:00)
[2023-10-16] MEDS: REMEDY ESSENTIAL ZINC PASTE 113 GM TP SCH ×2 (09:52→21:29)
[2023-10-16] MEDS: FOLIC ACID 1 MG TABLET PO SCH (09:52)
[2023-10-16] MEDS: MULTIVIT, IRON, MIN NO. 8, FA TABLET PO SCH (18:15)
[2023-10-16] MEDS: CHOLECALCIFEROL 1,000 UNIT TABLET PO SCH (18:15)
[2023-10-16] MEDS: ASPIRIN 81 MG TAB.CHEW PO SCH (18:15)
[2023-10-16] MEDS: OMEGA-3 FATTY ACIDS/FISH OIL CAPSULE PO SCH (18:15)
[2023-10-16] MEDS: MAGNESIUM OXIDE 400 MG TABLET PO SCH (18:15)
[2023-10-16] MEDS: ATORVASTATIN 20 MG TABLET PO SCH (18:15)
[2023-10-16] MEDS: LATANOPROST OPHT DROP 2.5 ML BOTTLE EACHEYE SCH (21:29)
[2023-10-17] VITALS (10 sets, daily range): TEMP 97–98.8; O2SAT 96–99
[2023-10-17] MEDS: IPRATROPIUM/ALBUTEROL SULFATE 3 ML AMPUL.NEB NEB SCH ×4 (01:54→19:10)
[2023-10-17] MEDS: LEVOTHYROXINE SODIUM 112 MCG TABLET PO SCH (05:46)
[2023-10-17] MEDS: BUDESONIDE 0.5 MG/2 ML NEBU NEB SCH ×2 (07:22→19:10)
[2023-10-17] MEDS: HYDROGEN PEROXIDE 3% 118 ML BOTTLE TP SCH ×2 (07:22→19:10)
[2023-10-17] MEDS: REMEDY ESSENTIAL ZINC PASTE 113 GM TP SCH ×2 (09:42→20:40)
[2023-10-17] MEDS: TOLTERODINE 1 MG TABLET PO SCH ×2 (09:42→16:41)
[2023-10-17] MEDS: FOLIC ACID 1 MG TABLET PO SCH (09:42)
[2023-10-17] MEDS: MIRALAX 17 GM POWD.PACK PO SCH ×2 (09:42→16:42)
[2023-10-17] MEDS: levETIRAcetam 500 MG/5 ML LIQUID UDC PO SCH ×2 (09:42→16:41)
[2023-10-17] MEDS: FERROUS SULFATE 325 MG TABEC PO SCH (09:42)
[2023-10-17] MEDS: DORZOLAMIDE/TIMOLOL OPHT DROP 10 ML BOTTLE EACHEYE SCH ×2 (09:42→16:41)
[2023-10-17] MEDS: VITAMINS A AND D 5 GM UD PKT TP SCH ×2 (09:42→20:40)
[2023-10-17] MEDS: GUAIFENESIN SUGAR FREE 100 MG/5 ML UDC PO PRN (16:45)
[2023-10-17] MEDS: BENZONATATE 100 MG CAPSULE PO PRN (16:46)
[2023-10-17] MEDS: MULTIVIT, IRON, MIN NO. 8, FA TABLET PO SCH (18:26)
[2023-10-17] MEDS: MAGNESIUM OXIDE 400 MG TABLET PO SCH (18:26)
[2023-10-17] MEDS: CHOLECALCIFEROL 1,000 UNIT TABLET PO SCH (18:26)
[2023-10-17] MEDS: ATORVASTATIN 20 MG TABLET PO SCH (18:26)
[2023-10-17] MEDS: OMEGA-3 FATTY ACIDS/FISH OIL CAPSULE PO SCH (18:26)
[2023-10-17] MEDS: ASPIRIN 81 MG TAB.CHEW PO SCH (18:26)
[2023-10-17] MEDS: LATANOPROST OPHT DROP 2.5 ML BOTTLE EACHEYE SCH (20:40)
[2023-10-18] VITALS (11 sets, daily range): TEMP 97.4–98.3; O2SAT 98–99
[2023-10-18] MEDS: IPRATROPIUM/ALBUTEROL SULFATE 3 ML AMPUL.NEB NEB SCH ×4 (00:32→19:02)
[2023-10-18] MEDS: LEVOTHYROXINE SODIUM 112 MCG TABLET PO SCH (06:11)
[2023-10-18] MEDS: BUDESONIDE 0.5 MG/2 ML NEBU NEB SCH ×2 (07:30→19:03)
[2023-10-18] MEDS: HYDROGEN PEROXIDE 3% 118 ML BOTTLE TP SCH ×2 (09:58→19:03)
[2023-10-18] MEDS: FERROUS SULFATE 325 MG TABEC PO SCH (10:00)
[2023-10-18] MEDS: FOLIC ACID 1 MG TABLET PO SCH (10:00)
[2023-10-18] MEDS: REMEDY ESSENTIAL ZINC PASTE 113 GM TP SCH ×2 (10:00→21:00)
[2023-10-18] MEDS: levETIRAcetam 500 MG/5 ML LIQUID UDC PO SCH ×2 (10:00→16:22)
[2023-10-18] MEDS: TOLTERODINE 1 MG TABLET PO SCH ×2 (10:00→16:22)
[2023-10-18] MEDS: VITAMINS A AND D 5 GM UD PKT TP SCH ×2 (10:00→21:00)
[2023-10-18] MEDS: MIRALAX 17 GM POWD.PACK PO SCH ×2 (10:00→16:22)
[2023-10-18] MEDS: DORZOLAMIDE/TIMOLOL OPHT DROP 10 ML BOTTLE EACHEYE SCH ×2 (10:00→16:22)
[2023-10-18] MEDS: GUAIFENESIN SUGAR FREE 100 MG/5 ML UDC PO PRN (16:25)
[2023-10-18] MEDS: BENZONATATE 100 MG CAPSULE PO PRN (16:25)
[2023-10-18] MEDS: CHOLECALCIFEROL 1,000 UNIT TABLET PO SCH (18:10)
[2023-10-18] MEDS: ATORVASTATIN 20 MG TABLET PO SCH (18:10)
[2023-10-18] MEDS: MAGNESIUM OXIDE 400 MG TABLET PO SCH (18:10)
[2023-10-18] MEDS: MULTIVIT, IRON, MIN NO. 8, FA TABLET PO SCH (18:10)
[2023-10-18] MEDS: OMEGA-3 FATTY ACIDS/FISH OIL CAPSULE PO SCH (18:10)
[2023-10-18] MEDS: ASPIRIN 81 MG TAB.CHEW PO SCH (18:10)
[2023-10-18] MEDS: LATANOPROST OPHT DROP 2.5 ML BOTTLE EACHEYE SCH (21:00)
[2023-10-19] VITALS (10 sets, daily range): TEMP 97.7–98.2; O2SAT 98–99
[2023-10-19] MEDS: IPRATROPIUM/ALBUTEROL SULFATE 3 ML AMPUL.NEB NEB SCH ×5 (00:33→19:06)
[2023-10-19] MEDS: LEVOTHYROXINE SODIUM 112 MCG TABLET PO SCH (06:23)
[2023-10-19] MEDS: BUDESONIDE 0.5 MG/2 ML NEBU NEB SCH ×2 (07:59→19:06)
[2023-10-19] MEDS: HYDROGEN PEROXIDE 3% 118 ML BOTTLE TP SCH ×2 (07:59→19:06)
[2023-10-19] MEDS: VITAMINS A AND D 5 GM UD PKT TP SCH ×2 (09:41→20:12)
[2023-10-19] MEDS: DORZOLAMIDE/TIMOLOL OPHT DROP 10 ML BOTTLE EACHEYE SCH ×2 (09:41→16:34)
[2023-10-19] MEDS: MIRALAX 17 GM POWD.PACK PO SCH ×2 (09:41→16:34)
[2023-10-19] MEDS: levETIRAcetam 500 MG/5 ML LIQUID UDC PO SCH ×2 (09:41→16:34)
[2023-10-19] MEDS: REMEDY ESSENTIAL ZINC PASTE 113 GM TP SCH ×2 (09:41→20:12)
[2023-10-19] MEDS: TOLTERODINE 1 MG TABLET PO SCH ×2 (09:41→16:34)
[2023-10-19] MEDS: FOLIC ACID 1 MG TABLET PO SCH (09:41)
[2023-10-19] MEDS: FERROUS SULFATE 325 MG TABEC PO SCH (09:41)
[2023-10-19] MEDS: ATORVASTATIN 20 MG TABLET PO SCH (17:23)
[2023-10-19] MEDS: ASPIRIN 81 MG TAB.CHEW PO SCH (17:23)
[2023-10-19] MEDS: OMEGA-3 FATTY ACIDS/FISH OIL CAPSULE PO SCH (17:23)
[2023-10-19] MEDS: MAGNESIUM OXIDE 400 MG TABLET PO SCH (17:23)
[2023-10-19] MEDS: CHOLECALCIFEROL 1,000 UNIT TABLET PO SCH (17:23)
[2023-10-19] MEDS: MULTIVIT, IRON, MIN NO. 8, FA TABLET PO SCH (17:23)
[2023-10-19] MEDS: BENZONATATE 100 MG CAPSULE PO PRN (18:32)
[2023-10-19] MEDS: GUAIFENESIN SUGAR FREE 100 MG/5 ML UDC PO PRN (18:40)
[2023-10-19] MEDS: LATANOPROST OPHT DROP 2.5 ML BOTTLE EACHEYE SCH (20:15)
[2023-10-20] VITALS (10 sets, daily range): TEMP 97.8–98.8; O2SAT 98–99
[2023-10-20] MEDS: IPRATROPIUM/ALBUTEROL SULFATE 3 ML AMPUL.NEB NEB SCH ×4 (01:01→19:13)
[2023-10-20] MEDS: LEVOTHYROXINE SODIUM 112 MCG TABLET PO SCH (05:08)
[2023-10-20] MEDS: HYDROGEN PEROXIDE 3% 118 ML BOTTLE TP SCH ×2 (07:11→19:13)
[2023-10-20] MEDS: BUDESONIDE 0.5 MG/2 ML NEBU NEB SCH ×2 (07:11→19:13)
[2023-10-20] MEDS: FOLIC ACID 1 MG TABLET PO SCH (09:18)
[2023-10-20] MEDS: TOLTERODINE 1 MG TABLET PO SCH ×2 (09:18→17:12)
[2023-10-20] MEDS: DORZOLAMIDE/TIMOLOL OPHT DROP 10 ML BOTTLE EACHEYE SCH ×2 (09:18→17:12)
[2023-10-20] MEDS: levETIRAcetam 500 MG/5 ML LIQUID UDC PO SCH ×2 (09:19→17:12)
[2023-10-20] MEDS: FERROUS SULFATE 325 MG TABEC PO SCH (09:19)
[2023-10-20] MEDS: REMEDY ESSENTIAL ZINC PASTE 113 GM TP SCH ×2 (09:20→20:30)
[2023-10-20] MEDS: VITAMINS A AND D 5 GM UD PKT TP SCH ×2 (09:20→20:30)
[2023-10-20] MEDS: BENZONATATE 100 MG CAPSULE PO PRN ×2 (09:20→17:12)
[2023-10-20] MEDS: MIRALAX 17 GM POWD.PACK PO SCH ×2 (09:20→17:12)
[2023-10-20] MEDS: GUAIFENESIN SUGAR FREE 100 MG/5 ML UDC PO PRN ×2 (09:20→17:12)
[2023-10-20] MEDS: MULTIVIT, IRON, MIN NO. 8, FA TABLET PO SCH (17:12)
[2023-10-20] MEDS: MAGNESIUM OXIDE 400 MG TABLET PO SCH (17:12)
[2023-10-20] MEDS: CHOLECALCIFEROL 1,000 UNIT TABLET PO SCH (17:12)
[2023-10-20] MEDS: ASPIRIN 81 MG TAB.CHEW PO SCH (17:12)
[2023-10-20] MEDS: ATORVASTATIN 20 MG TABLET PO SCH (17:12)
[2023-10-20] MEDS: OMEGA-3 FATTY ACIDS/FISH OIL CAPSULE PO SCH (17:12)
[2023-10-20] MEDS: LATANOPROST OPHT DROP 2.5 ML BOTTLE EACHEYE SCH (20:30)
[2023-10-21] VITALS (10 sets, daily range): TEMP 98–98.4; O2SAT 98–99
[2023-10-21] MEDS: IPRATROPIUM/ALBUTEROL SULFATE 3 ML AMPUL.NEB NEB SCH ×4 (01:02→19:13)
[2023-10-21] MEDS: LEVOTHYROXINE SODIUM 112 MCG TABLET PO SCH (06:01)
[2023-10-21] MEDS: HYDROGEN PEROXIDE 3% 118 ML BOTTLE TP SCH ×2 (08:07→19:13)
[2023-10-21] MEDS: BUDESONIDE 0.5 MG/2 ML NEBU NEB SCH ×2 (08:07→19:13)
[2023-10-21] MEDS: GUAIFENESIN SUGAR FREE 100 MG/5 ML UDC PO PRN ×2 (09:16→17:30)
[2023-10-21] MEDS: TOLTERODINE 1 MG TABLET PO SCH ×2 (09:16→17:29)
[2023-10-21] MEDS: VITAMINS A AND D 5 GM UD PKT TP SCH ×2 (09:16→21:49)
[2023-10-21] MEDS: MIRALAX 17 GM POWD.PACK PO SCH ×2 (09:16→17:29)
[2023-10-21] MEDS: levETIRAcetam 500 MG/5 ML LIQUID UDC PO SCH ×2 (09:16→17:29)
[2023-10-21] MEDS: DORZOLAMIDE/TIMOLOL OPHT DROP 10 ML BOTTLE EACHEYE SCH ×2 (09:16→17:29)
[2023-10-21] MEDS: REMEDY ESSENTIAL ZINC PASTE 113 GM TP SCH ×2 (09:16→21:49)
[2023-10-21] MEDS: FOLIC ACID 1 MG TABLET PO SCH (09:16)
[2023-10-21] MEDS: BENZONATATE 100 MG CAPSULE PO PRN ×2 (09:16→17:30)
[2023-10-21] MEDS: FERROUS SULFATE 325 MG TABEC PO SCH (09:16)
[2023-10-21] MEDS: ATORVASTATIN 20 MG TABLET PO SCH (17:29)
[2023-10-21] MEDS: MULTIVIT, IRON, MIN NO. 8, FA TABLET PO SCH (17:29)
[2023-10-21] MEDS: ASPIRIN 81 MG TAB.CHEW PO SCH (17:29)
[2023-10-21] MEDS: OMEGA-3 FATTY ACIDS/FISH OIL CAPSULE PO SCH (17:29)
[2023-10-21] MEDS: MAGNESIUM OXIDE 400 MG TABLET PO SCH (17:29)
[2023-10-21] MEDS: CHOLECALCIFEROL 1,000 UNIT TABLET PO SCH (17:30)
[2023-10-21] MEDS: LATANOPROST OPHT DROP 2.5 ML BOTTLE EACHEYE SCH (21:49)
[2023-10-22] VITALS (10 sets, daily range): TEMP 97.4–97.8; O2SAT 98–99
[2023-10-22] MEDS: IPRATROPIUM/ALBUTEROL SULFATE 3 ML AMPUL.NEB NEB SCH ×4 (01:13→19:15)
[2023-10-22] MEDS: LEVOTHYROXINE SODIUM 112 MCG TABLET PO SCH (06:04)
[2023-10-22] MEDS: BUDESONIDE 0.5 MG/2 ML NEBU NEB SCH ×2 (08:15→19:15)
[2023-10-22] MEDS: TOLTERODINE 1 MG TABLET PO SCH ×2 (08:31→16:50)
[2023-10-22] MEDS: DORZOLAMIDE/TIMOLOL OPHT DROP 10 ML BOTTLE EACHEYE SCH ×2 (08:31→17:07)
[2023-10-22] MEDS: FERROUS SULFATE 325 MG TABEC PO SCH (08:32)
[2023-10-22] MEDS: FOLIC ACID 1 MG TABLET PO SCH (08:32)
[2023-10-22] MEDS: MIRALAX 17 GM POWD.PACK PO SCH ×2 (08:33→16:51)
[2023-10-22] MEDS: levETIRAcetam 500 MG/5 ML LIQUID UDC PO SCH ×2 (08:33→16:50)
[2023-10-22] MEDS: REMEDY ESSENTIAL ZINC PASTE 113 GM TP SCH ×2 (08:34→21:17)
[2023-10-22] MEDS: VITAMINS A AND D 5 GM UD PKT TP SCH ×2 (08:34→21:17)
[2023-10-22] MEDS: HYDROGEN PEROXIDE 3% 118 ML BOTTLE TP SCH ×2 (09:00→19:15)
[2023-10-22] MEDS: MAGNESIUM OXIDE 400 MG TABLET PO SCH (17:06)
[2023-10-22] MEDS: ASPIRIN 81 MG TAB.CHEW PO SCH (17:06)
[2023-10-22] MEDS: CHOLECALCIFEROL 1,000 UNIT TABLET PO SCH (17:06)
[2023-10-22] MEDS: MULTIVIT, IRON, MIN NO. 8, FA TABLET PO SCH (17:06)
[2023-10-22] MEDS: OMEGA-3 FATTY ACIDS/FISH OIL CAPSULE PO SCH (17:06)
[2023-10-22] MEDS: ATORVASTATIN 20 MG TABLET PO SCH (17:06)
[2023-10-22] MEDS: LATANOPROST OPHT DROP 2.5 ML BOTTLE EACHEYE SCH (21:17)
[2023-10-23] VITALS (10 sets, daily range): TEMP 97.7; O2SAT 98–99
[2023-10-23] MEDS: IPRATROPIUM/ALBUTEROL SULFATE 3 ML AMPUL.NEB NEB SCH ×4 (01:05→19:07)
[2023-10-23] MEDS: LEVOTHYROXINE SODIUM 112 MCG TABLET PO SCH (05:59)
[2023-10-23] MEDS: BUDESONIDE 0.5 MG/2 ML NEBU NEB SCH ×2 (07:31→19:07)
[2023-10-23] MEDS: HYDROGEN PEROXIDE 3% 118 ML BOTTLE TP SCH ×2 (07:31→19:07)
[2023-10-23] MEDS: FOLIC ACID 1 MG TABLET PO SCH (08:35)
[2023-10-23] MEDS: FERROUS SULFATE 325 MG TABEC PO SCH (08:35)
[2023-10-23] MEDS: TOLTERODINE 1 MG TABLET PO SCH ×2 (08:35→17:01)
[2023-10-23] MEDS: MIRALAX 17 GM POWD.PACK PO SCH ×2 (08:36→17:01)
[2023-10-23] MEDS: VITAMINS A AND D 5 GM UD PKT TP SCH ×2 (08:36→20:23)
[2023-10-23] MEDS: levETIRAcetam 500 MG/5 ML LIQUID UDC PO SCH ×2 (08:36→17:01)
[2023-10-23] MEDS: REMEDY ESSENTIAL ZINC PASTE 113 GM TP SCH ×2 (08:36→20:23)
[2023-10-23] MEDS: DORZOLAMIDE/TIMOLOL OPHT DROP 10 ML BOTTLE EACHEYE SCH ×2 (08:40→17:01)
[2023-10-23] MEDS: ATORVASTATIN 20 MG TABLET PO SCH (17:02)
[2023-10-23] MEDS: MULTIVIT, IRON, MIN NO. 8, FA TABLET PO SCH (17:02)
[2023-10-23] MEDS: MAGNESIUM OXIDE 400 MG TABLET PO SCH (17:02)
[2023-10-23] MEDS: OMEGA-3 FATTY ACIDS/FISH OIL CAPSULE PO SCH (17:02)
[2023-10-23] MEDS: CHOLECALCIFEROL 1,000 UNIT TABLET PO SCH (17:02)
[2023-10-23] MEDS: ASPIRIN 81 MG TAB.CHEW PO SCH (17:02)
[2023-10-23] MEDS: LATANOPROST OPHT DROP 2.5 ML BOTTLE EACHEYE SCH (20:23)
[2023-10-24] VITALS (10 sets, daily range): TEMP 98.4; O2SAT 98–99
[2023-10-24] MEDS: IPRATROPIUM/ALBUTEROL SULFATE 3 ML AMPUL.NEB NEB SCH ×4 (00:37→19:21)
[2023-10-24] MEDS: LEVOTHYROXINE SODIUM 112 MCG TABLET PO SCH (05:31)
[2023-10-24] MEDS: BUDESONIDE 0.5 MG/2 ML NEBU NEB SCH ×2 (07:30→19:21)
[2023-10-24] MEDS: HYDROGEN PEROXIDE 3% 118 ML BOTTLE TP SCH ×2 (08:37→19:21)
[2023-10-24] MEDS: levETIRAcetam 500 MG/5 ML LIQUID UDC PO SCH ×2 (09:19→17:28)
[2023-10-24] MEDS: FOLIC ACID 1 MG TABLET PO SCH (09:19)
[2023-10-24] MEDS: FERROUS SULFATE 325 MG TABEC PO SCH (09:19)
[2023-10-24] MEDS: TOLTERODINE 1 MG TABLET PO SCH ×2 (09:19→17:28)
[2023-10-24] MEDS: MIRALAX 17 GM POWD.PACK PO SCH ×2 (09:20→17:28)
[2023-10-24] MEDS: VITAMINS A AND D 5 GM UD PKT TP SCH ×2 (09:21→20:33)
[2023-10-24] MEDS: REMEDY ESSENTIAL ZINC PASTE 113 GM TP SCH ×2 (09:21→20:33)
[2023-10-24] MEDS: DORZOLAMIDE/TIMOLOL OPHT DROP 10 ML BOTTLE EACHEYE SCH ×2 (09:53→17:28)
[2023-10-24] MEDS: MAGNESIUM OXIDE 400 MG TABLET PO SCH (17:28)
[2023-10-24] MEDS: ASPIRIN 81 MG TAB.CHEW PO SCH (17:28)
[2023-10-24] MEDS: MULTIVIT, IRON, MIN NO. 8, FA TABLET PO SCH (17:28)
[2023-10-24] MEDS: OMEGA-3 FATTY ACIDS/FISH OIL CAPSULE PO SCH (17:28)
[2023-10-24] MEDS: CHOLECALCIFEROL 1,000 UNIT TABLET PO SCH (17:28)
[2023-10-24] MEDS: ATORVASTATIN 20 MG TABLET PO SCH (17:28)
[2023-10-24] MEDS: LATANOPROST OPHT DROP 2.5 ML BOTTLE EACHEYE SCH (20:33)
[2023-10-25] VITALS (10 sets, daily range): TEMP 97.2–97.6; O2SAT 98–99
[2023-10-25] MEDS: IPRATROPIUM/ALBUTEROL SULFATE 3 ML AMPUL.NEB NEB SCH ×4 (01:26→19:09)
[2023-10-25] MEDS: LEVOTHYROXINE SODIUM 112 MCG TABLET PO SCH (05:43)
[2023-10-25] MEDS: HYDROGEN PEROXIDE 3% 118 ML BOTTLE TP SCH ×2 (07:24→19:09)
[2023-10-25] MEDS: BUDESONIDE 0.5 MG/2 ML NEBU NEB SCH ×2 (07:24→19:09)
[2023-10-25] MEDS: REMEDY ESSENTIAL ZINC PASTE 113 GM TP SCH ×2 (09:14→20:52)
[2023-10-25] MEDS: MIRALAX 17 GM POWD.PACK PO SCH ×2 (09:14→16:48)
[2023-10-25] MEDS: FERROUS SULFATE 325 MG TABEC PO SCH (09:14)
[2023-10-25] MEDS: BENZONATATE 100 MG CAPSULE PO PRN ×2 (09:14→16:56)
[2023-10-25] MEDS: DORZOLAMIDE/TIMOLOL OPHT DROP 10 ML BOTTLE EACHEYE SCH ×2 (09:14→16:48)
[2023-10-25] MEDS: VITAMINS A AND D 5 GM UD PKT TP SCH ×2 (09:14→20:52)
[2023-10-25] MEDS: FOLIC ACID 1 MG TABLET PO SCH (09:14)
[2023-10-25] MEDS: levETIRAcetam 500 MG/5 ML LIQUID UDC PO SCH ×2 (09:14→16:48)
[2023-10-25] MEDS: TOLTERODINE 1 MG TABLET PO SCH ×2 (09:14→16:48)
[2023-10-25] MEDS: GUAIFENESIN SUGAR FREE 100 MG/5 ML UDC PO PRN ×2 (09:14→16:56)
[2023-10-25] MEDS: ATORVASTATIN 20 MG TABLET PO SCH (18:43)
[2023-10-25] MEDS: CHOLECALCIFEROL 1,000 UNIT TABLET PO SCH (18:43)
[2023-10-25] MEDS: ASPIRIN 81 MG TAB.CHEW PO SCH (18:43)
[2023-10-25] MEDS: MULTIVIT, IRON, MIN NO. 8, FA TABLET PO SCH (18:43)
[2023-10-25] MEDS: OMEGA-3 FATTY ACIDS/FISH OIL CAPSULE PO SCH (18:43)
[2023-10-25] MEDS: MAGNESIUM OXIDE 400 MG TABLET PO SCH (18:43)
[2023-10-25] MEDS: LATANOPROST OPHT DROP 2.5 ML BOTTLE EACHEYE SCH (20:52)
[2023-10-26] VITALS (10 sets, daily range): TEMP 98.3–98.7; O2SAT 98–99
[2023-10-26] MEDS: IPRATROPIUM/ALBUTEROL SULFATE 3 ML AMPUL.NEB NEB SCH ×4 (02:01→19:21)
[2023-10-26] MEDS: LEVOTHYROXINE SODIUM 112 MCG TABLET PO SCH (05:45)
[2023-10-26] MEDS: BUDESONIDE 0.5 MG/2 ML NEBU NEB SCH ×2 (07:31→19:21)
[2023-10-26] MEDS: HYDROGEN PEROXIDE 3% 118 ML BOTTLE TP SCH ×2 (09:00→19:21)
[2023-10-26] MEDS: FOLIC ACID 1 MG TABLET PO SCH (09:33)
[2023-10-26] MEDS: FERROUS SULFATE 325 MG TABEC PO SCH (09:33)
[2023-10-26] MEDS: levETIRAcetam 500 MG/5 ML LIQUID UDC PO SCH ×2 (09:33→16:40)
[2023-10-26] MEDS: DORZOLAMIDE/TIMOLOL OPHT DROP 10 ML BOTTLE EACHEYE SCH ×2 (09:33→16:39)
[2023-10-26] MEDS: TOLTERODINE 1 MG TABLET PO SCH ×2 (09:33→16:39)
[2023-10-26] MEDS: VITAMINS A AND D 5 GM UD PKT TP SCH ×2 (09:34→20:00)
[2023-10-26] MEDS: MIRALAX 17 GM POWD.PACK PO SCH ×2 (09:34→16:40)
[2023-10-26] MEDS: BENZONATATE 100 MG CAPSULE PO PRN ×2 (09:34→16:43)
[2023-10-26] MEDS: GUAIFENESIN SUGAR FREE 100 MG/5 ML UDC PO PRN ×2 (09:34→16:43)
[2023-10-26] MEDS: REMEDY ESSENTIAL ZINC PASTE 113 GM TP SCH ×2 (09:34→20:00)
[2023-10-26] MEDS: OMEGA-3 FATTY ACIDS/FISH OIL CAPSULE PO SCH (17:30)
[2023-10-26] MEDS: MAGNESIUM OXIDE 400 MG TABLET PO SCH (17:30)
[2023-10-26] MEDS: CHOLECALCIFEROL 1,000 UNIT TABLET PO SCH (17:30)
[2023-10-26] MEDS: ATORVASTATIN 20 MG TABLET PO SCH (17:30)
[2023-10-26] MEDS: MULTIVIT, IRON, MIN NO. 8, FA TABLET PO SCH (17:30)
[2023-10-26] MEDS: ASPIRIN 81 MG TAB.CHEW PO SCH (17:30)
[2023-10-26] MEDS: LATANOPROST OPHT DROP 2.5 ML BOTTLE EACHEYE SCH (20:00)
[2023-10-27] VITALS (10 sets, daily range): TEMP 97.8–98.1; O2SAT 98–99
[2023-10-27] MEDS: IPRATROPIUM/ALBUTEROL SULFATE 3 ML AMPUL.NEB NEB SCH ×4 (01:21→19:06)
[2023-10-27] MEDS: LEVOTHYROXINE SODIUM 112 MCG TABLET PO SCH ×2 (06:30→07:30)
[2023-10-27] MEDS ORDERED: LEVOTHYROXINE SODIUM 112 MCG TABLET ONE (07:19)
[2023-10-27] MEDS: BUDESONIDE 0.5 MG/2 ML NEBU NEB SCH ×2 (07:39→19:06)
[2023-10-27] MEDS: HYDROGEN PEROXIDE 3% 118 ML BOTTLE TP SCH ×2 (09:32→19:06)
[2023-10-27] MEDS: DORZOLAMIDE/TIMOLOL OPHT DROP 10 ML BOTTLE EACHEYE SCH ×2 (09:41→17:48)
[2023-10-27] MEDS: TOLTERODINE 1 MG TABLET PO SCH ×2 (09:41→17:48)
[2023-10-27] MEDS: FERROUS SULFATE 325 MG TABEC PO SCH (09:41)
[2023-10-27] MEDS: FOLIC ACID 1 MG TABLET PO SCH (09:42)
[2023-10-27] MEDS: REMEDY ESSENTIAL ZINC PASTE 113 GM TP SCH ×2 (09:42→21:00)
[2023-10-27] MEDS: levETIRAcetam 500 MG/5 ML LIQUID UDC PO SCH ×2 (09:42→17:48)
[2023-10-27] MEDS: MIRALAX 17 GM POWD.PACK PO SCH ×2 (09:42→17:48)
[2023-10-27] MEDS: VITAMINS A AND D 5 GM UD PKT TP SCH ×2 (09:42→21:00)
[2023-10-27] MEDS: GUAIFENESIN SUGAR FREE 100 MG/5 ML UDC PO PRN (09:43)
[2023-10-27] MEDS: BENZONATATE 100 MG CAPSULE PO PRN (09:43)
[2023-10-27] MEDS: OMEGA-3 FATTY ACIDS/FISH OIL CAPSULE PO SCH (17:48)
[2023-10-27] MEDS: ATORVASTATIN 20 MG TABLET PO SCH (17:48)
[2023-10-27] MEDS: MAGNESIUM OXIDE 400 MG TABLET PO SCH (17:48)
[2023-10-27] MEDS: CHOLECALCIFEROL 1,000 UNIT TABLET PO SCH (17:48)
[2023-10-27] MEDS: MULTIVIT, IRON, MIN NO. 8, FA TABLET PO SCH (17:48)
[2023-10-27] MEDS: ASPIRIN 81 MG TAB.CHEW PO SCH (17:48)
[2023-10-27] MEDS: LATANOPROST OPHT DROP 2.5 ML BOTTLE EACHEYE SCH (21:00)
[2023-10-28] VITALS (10 sets, daily range): TEMP 98–98.3; O2SAT 97–99
[2023-10-28] MEDS: IPRATROPIUM/ALBUTEROL SULFATE 3 ML AMPUL.NEB NEB SCH ×4 (01:24→19:03)
[2023-10-28] MEDS: LEVOTHYROXINE SODIUM 112 MCG TABLET PO SCH (06:45)
[2023-10-28] MEDS: BUDESONIDE 0.5 MG/2 ML NEBU NEB SCH ×2 (07:30→19:03)
[2023-10-28] MEDS: HYDROGEN PEROXIDE 3% 118 ML BOTTLE TP SCH ×2 (09:35→19:03)
[2023-10-28] MEDS: DORZOLAMIDE/TIMOLOL OPHT DROP 10 ML BOTTLE EACHEYE SCH ×2 (09:38→17:00)
[2023-10-28] MEDS: FOLIC ACID 1 MG TABLET PO SCH (09:38)
[2023-10-28] MEDS: levETIRAcetam 500 MG/5 ML LIQUID UDC PO SCH ×2 (09:39→17:00)
[2023-10-28] MEDS: TOLTERODINE 1 MG TABLET PO SCH ×2 (09:39→17:00)
[2023-10-28] MEDS: FERROUS SULFATE 325 MG TABEC PO SCH (09:39)
[2023-10-28] MEDS: MIRALAX 17 GM POWD.PACK PO SCH ×2 (09:40→17:00)
[2023-10-28] MEDS: GUAIFENESIN SUGAR FREE 100 MG/5 ML UDC PO PRN ×2 (09:41→17:00)
[2023-10-28] MEDS: REMEDY ESSENTIAL ZINC PASTE 113 GM TP SCH ×2 (09:41→21:17)
[2023-10-28] MEDS: VITAMINS A AND D 5 GM UD PKT TP SCH ×2 (09:41→21:17)
[2023-10-28] MEDS: BENZONATATE 100 MG CAPSULE PO PRN ×2 (09:42→17:00)
[2023-10-28] MEDS: OMEGA-3 FATTY ACIDS/FISH OIL CAPSULE PO SCH (17:00)
[2023-10-28] MEDS: CHOLECALCIFEROL 1,000 UNIT TABLET PO SCH (17:00)
[2023-10-28] MEDS: ATORVASTATIN 20 MG TABLET PO SCH (17:00)
[2023-10-28] MEDS: MAGNESIUM OXIDE 400 MG TABLET PO SCH (17:00)
[2023-10-28] MEDS: ASPIRIN 81 MG TAB.CHEW PO SCH (17:00)
[2023-10-28] MEDS: MULTIVIT, IRON, MIN NO. 8, FA TABLET PO SCH (17:00)
[2023-10-28] MEDS: LATANOPROST OPHT DROP 2.5 ML BOTTLE EACHEYE SCH (21:16)
[2023-10-29] VITALS (10 sets, daily range): TEMP 97.9–98.2; O2SAT 97–99
[2023-10-29] MEDS: IPRATROPIUM/ALBUTEROL SULFATE 3 ML AMPUL.NEB NEB SCH ×4 (00:32→19:06)
[2023-10-29] MEDS: LEVOTHYROXINE SODIUM 112 MCG TABLET PO SCH (07:04)
[2023-10-29] MEDS: BUDESONIDE 0.5 MG/2 ML NEBU NEB SCH ×2 (07:14→19:06)
[2023-10-29] MEDS: HYDROGEN PEROXIDE 3% 118 ML BOTTLE TP SCH ×2 (07:14→19:06)
[2023-10-29] MEDS: DORZOLAMIDE/TIMOLOL OPHT DROP 10 ML BOTTLE EACHEYE SCH ×2 (09:10→17:46)
[2023-10-29] MEDS: TOLTERODINE 1 MG TABLET PO SCH ×2 (09:11→17:46)
[2023-10-29] MEDS: FERROUS SULFATE 325 MG TABEC PO SCH (09:12)
[2023-10-29] MEDS: FOLIC ACID 1 MG TABLET PO SCH (09:13)
[2023-10-29] MEDS: levETIRAcetam 500 MG/5 ML LIQUID UDC PO SCH ×2 (09:13→17:46)
[2023-10-29] MEDS: MIRALAX 17 GM POWD.PACK PO SCH ×2 (09:14→17:46)
[2023-10-29] MEDS: VITAMINS A AND D 5 GM UD PKT TP SCH ×2 (09:15→20:46)
[2023-10-29] MEDS: REMEDY ESSENTIAL ZINC PASTE 113 GM TP SCH ×2 (09:15→20:46)
[2023-10-29] MEDS: GUAIFENESIN SUGAR FREE 100 MG/5 ML UDC PO PRN ×2 (09:16→17:48)
[2023-10-29] MEDS: BENZONATATE 100 MG CAPSULE PO PRN ×2 (09:16→17:48)
[2023-10-29] MEDS: ATORVASTATIN 20 MG TABLET PO SCH (17:46)
[2023-10-29] MEDS: OMEGA-3 FATTY ACIDS/FISH OIL CAPSULE PO SCH (17:46)
[2023-10-29] MEDS: ASPIRIN 81 MG TAB.CHEW PO SCH (17:46)
[2023-10-29] MEDS: MAGNESIUM OXIDE 400 MG TABLET PO SCH (17:46)
[2023-10-29] MEDS: MULTIVIT, IRON, MIN NO. 8, FA TABLET PO SCH (17:46)
[2023-10-29] MEDS: CHOLECALCIFEROL 1,000 UNIT TABLET PO SCH (17:47)
[2023-10-29] MEDS: LATANOPROST OPHT DROP 2.5 ML BOTTLE EACHEYE SCH (20:46)
[2023-10-30] VITALS (13 sets, daily range): TEMP 97.4–97.6; O2SAT 97–99
[2023-10-30] MEDS: IPRATROPIUM/ALBUTEROL SULFATE 3 ML AMPUL.NEB NEB SCH ×4 (01:22→19:30)
[2023-10-30] MEDS: LEVOTHYROXINE SODIUM 112 MCG TABLET PO SCH (06:03)
[2023-10-30] MEDS: HYDROGEN PEROXIDE 3% 118 ML BOTTLE TP SCH ×2 (07:25→20:59)
[2023-10-30] MEDS: BUDESONIDE 0.5 MG/2 ML NEBU NEB SCH ×2 (07:25→19:30)
[2023-10-30] MEDS: levETIRAcetam 500 MG/5 ML LIQUID UDC PO SCH ×2 (09:00→16:55)
[2023-10-30] MEDS: VITAMINS A AND D 5 GM UD PKT TP SCH ×2 (09:00→20:41)
[2023-10-30] MEDS: DORZOLAMIDE/TIMOLOL OPHT DROP 10 ML BOTTLE EACHEYE SCH ×2 (09:00→16:55)
[2023-10-30] MEDS: FERROUS SULFATE 325 MG TABEC PO SCH (09:00)
[2023-10-30] MEDS: FOLIC ACID 1 MG TABLET PO SCH (09:00)
[2023-10-30] MEDS: TOLTERODINE 1 MG TABLET PO SCH ×2 (09:00→16:55)
[2023-10-30] MEDS: MIRALAX 17 GM POWD.PACK PO SCH ×2 (09:00→16:55)
[2023-10-30] MEDS: REMEDY ESSENTIAL ZINC PASTE 113 GM TP SCH ×2 (09:00→20:41)
[2023-10-30] MEDS: ASPIRIN 81 MG TAB.CHEW PO SCH (18:28)
[2023-10-30] MEDS: ATORVASTATIN 20 MG TABLET PO SCH (18:28)
[2023-10-30] MEDS: MAGNESIUM OXIDE 400 MG TABLET PO SCH (18:28)
[2023-10-30] MEDS: OMEGA-3 FATTY ACIDS/FISH OIL CAPSULE PO SCH (18:28)
[2023-10-30] MEDS: CHOLECALCIFEROL 1,000 UNIT TABLET PO SCH (18:28)
[2023-10-30] MEDS: MULTIVIT, IRON, MIN NO. 8, FA TABLET PO SCH (18:28)
[2023-10-30] MEDS: LATANOPROST OPHT DROP 2.5 ML BOTTLE EACHEYE SCH (20:41)
[2023-10-31] VITALS (9 sets, daily range): TEMP 97.6–97.9; O2SAT 97–99
[2023-10-31] MEDS: IPRATROPIUM/ALBUTEROL SULFATE 3 ML AMPUL.NEB NEB SCH ×4 (01:38→19:07)
[2023-10-31] MEDS: LEVOTHYROXINE SODIUM 112 MCG TABLET PO SCH (05:35)
[2023-10-31] MEDS: HYDROGEN PEROXIDE 3% 118 ML BOTTLE TP SCH ×2 (07:36→19:07)
[2023-10-31] MEDS: BUDESONIDE 0.5 MG/2 ML NEBU NEB SCH ×2 (07:36→19:07)
[2023-10-31] MEDS: DORZOLAMIDE/TIMOLOL OPHT DROP 10 ML BOTTLE EACHEYE SCH ×2 (09:08→16:36)
[2023-10-31] MEDS: TOLTERODINE 1 MG TABLET PO SCH ×2 (09:09→16:36)
[2023-10-31] MEDS: FOLIC ACID 1 MG TABLET PO SCH (09:09)
[2023-10-31] MEDS: FERROUS SULFATE 325 MG TABEC PO SCH (09:09)
[2023-10-31] MEDS: MIRALAX 17 GM POWD.PACK PO SCH ×2 (09:10→16:36)
[2023-10-31] MEDS: VITAMINS A AND D 5 GM UD PKT TP SCH ×2 (09:10→21:00)
[2023-10-31] MEDS: REMEDY ESSENTIAL ZINC PASTE 113 GM TP SCH ×2 (09:10→21:00)
[2023-10-31] MEDS: levETIRAcetam 500 MG/5 ML LIQUID UDC PO SCH ×2 (09:10→16:36)
[2023-10-31] MEDS: GUAIFENESIN SUGAR FREE 100 MG/5 ML UDC PO PRN (09:11)
[2023-10-31] MEDS: BENZONATATE 100 MG CAPSULE PO PRN (09:11)
[2023-10-31] MEDS: MAGNESIUM OXIDE 400 MG TABLET PO SCH (17:54)
[2023-10-31] MEDS: MULTIVIT, IRON, MIN NO. 8, FA TABLET PO SCH (17:54)
[2023-10-31] MEDS: OMEGA-3 FATTY ACIDS/FISH OIL CAPSULE PO SCH (17:54)
[2023-10-31] MEDS: ASPIRIN 81 MG TAB.CHEW PO SCH (17:54)
[2023-10-31] MEDS: CHOLECALCIFEROL 1,000 UNIT TABLET PO SCH (17:54)
[2023-10-31] MEDS: ATORVASTATIN 20 MG TABLET PO SCH (17:54)
[2023-10-31] MEDS: LATANOPROST OPHT DROP 2.5 ML BOTTLE EACHEYE SCH (20:30)
[2023-11-01] VITALS (10 sets, daily range): TEMP 98–98.7; O2SAT 97–99
[2023-11-01] MEDS: IPRATROPIUM/ALBUTEROL SULFATE 3 ML AMPUL.NEB NEB SCH ×4 (00:31→19:08)
[2023-11-01] MEDS: LEVOTHYROXINE SODIUM 112 MCG TABLET PO SCH (05:34)
[2023-11-01] MEDS: BUDESONIDE 0.5 MG/2 ML NEBU NEB SCH ×2 (08:28→19:08)
[2023-11-01] MEDS: HYDROGEN PEROXIDE 3% 118 ML BOTTLE TP SCH ×2 (08:28→19:08)
[2023-11-01] MEDS: FOLIC ACID 1 MG TABLET PO SCH (10:00)
[2023-11-01] MEDS: REMEDY ESSENTIAL ZINC PASTE 113 GM TP SCH ×2 (10:00→21:00)
[2023-11-01] MEDS: DORZOLAMIDE/TIMOLOL OPHT DROP 10 ML BOTTLE EACHEYE SCH ×2 (10:00→16:38)
[2023-11-01] MEDS: FERROUS SULFATE 325 MG TABEC PO SCH (10:00)
[2023-11-01] MEDS: levETIRAcetam 500 MG/5 ML LIQUID UDC PO SCH ×2 (10:00→16:38)
[2023-11-01] MEDS: MIRALAX 17 GM POWD.PACK PO SCH ×2 (10:00→16:38)
[2023-11-01] MEDS: TOLTERODINE 1 MG TABLET PO SCH ×2 (10:00→16:38)
[2023-11-01] MEDS: VITAMINS A AND D 5 GM UD PKT TP SCH ×2 (10:00→21:00)
[2023-11-01] MEDS: GUAIFENESIN SUGAR FREE 100 MG/5 ML UDC PO PRN ×2 (10:05→16:40)
[2023-11-01] MEDS: BENZONATATE 100 MG CAPSULE PO PRN ×2 (10:05→16:40)
[2023-11-01] MEDS: MAGNESIUM OXIDE 400 MG TABLET PO SCH (18:27)
[2023-11-01] MEDS: ATORVASTATIN 20 MG TABLET PO SCH (18:27)
[2023-11-01] MEDS: ASPIRIN 81 MG TAB.CHEW PO SCH (18:27)
[2023-11-01] MEDS: OMEGA-3 FATTY ACIDS/FISH OIL CAPSULE PO SCH (18:27)
[2023-11-01] MEDS: MULTIVIT, IRON, MIN NO. 8, FA TABLET PO SCH (18:27)
[2023-11-01] MEDS: CHOLECALCIFEROL 1,000 UNIT TABLET PO SCH (18:27)
[2023-11-01] MEDS: LATANOPROST OPHT DROP 2.5 ML BOTTLE EACHEYE SCH (21:00)
[2023-11-02] VITALS (7 sets, daily range): TEMP 98–98.7; O2SAT 98–99
[2023-11-02] MEDS: IPRATROPIUM/ALBUTEROL SULFATE 3 ML AMPUL.NEB NEB SCH ×4 (00:30→19:03)
[2023-11-02] MEDS: LEVOTHYROXINE SODIUM 112 MCG TABLET PO SCH (05:52)
[2023-11-02] MEDS: BUDESONIDE 0.5 MG/2 ML NEBU NEB SCH ×2 (07:06→19:03)
[2023-11-02] MEDS: HYDROGEN PEROXIDE 3% 118 ML BOTTLE TP SCH ×2 (07:06→19:04)
[2023-11-02] MEDS: FERROUS SULFATE 325 MG TABEC PO SCH (09:45)
[2023-11-02] MEDS: TOLTERODINE 1 MG TABLET PO SCH ×2 (09:45→17:36)
[2023-11-02] MEDS: DORZOLAMIDE/TIMOLOL OPHT DROP 10 ML BOTTLE EACHEYE SCH ×2 (09:45→17:36)
[2023-11-02] MEDS: FOLIC ACID 1 MG TABLET PO SCH (09:45)
[2023-11-02] MEDS: REMEDY ESSENTIAL ZINC PASTE 113 GM TP SCH ×2 (09:46→20:18)
[2023-11-02] MEDS: levETIRAcetam 500 MG/5 ML LIQUID UDC PO SCH ×2 (09:46→17:36)
[2023-11-02] MEDS: MIRALAX 17 GM POWD.PACK PO SCH ×2 (09:46→17:36)
[2023-11-02] MEDS: VITAMINS A AND D 5 GM UD PKT TP SCH ×2 (09:46→20:18)
[2023-11-02] MEDS: GUAIFENESIN SUGAR FREE 100 MG/5 ML UDC PO PRN (09:48)
[2023-11-02] MEDS: BENZONATATE 100 MG CAPSULE PO PRN (09:48)
[2023-11-02] MEDS: ASPIRIN 81 MG TAB.CHEW PO SCH (17:36)
[2023-11-02] MEDS: ATORVASTATIN 20 MG TABLET PO SCH (17:37)
[2023-11-02] MEDS: MULTIVIT, IRON, MIN NO. 8, FA TABLET PO SCH (17:37)
[2023-11-02] MEDS: MAGNESIUM OXIDE 400 MG TABLET PO SCH (17:37)
[2023-11-02] MEDS: OMEGA-3 FATTY ACIDS/FISH OIL CAPSULE PO SCH (17:37)
[2023-11-02] MEDS: CHOLECALCIFEROL 1,000 UNIT TABLET PO SCH (17:37)
[2023-11-02] MEDS: LATANOPROST OPHT DROP 2.5 ML BOTTLE EACHEYE SCH (20:18)
[2023-11-03] VITALS (10 sets, daily range): TEMP 97.8–98.6; O2SAT 97–99
[2023-11-03] MEDS: IPRATROPIUM/ALBUTEROL SULFATE 3 ML AMPUL.NEB NEB SCH ×4 (00:35→19:10)
[2023-11-03] MEDS: LEVOTHYROXINE SODIUM 112 MCG TABLET PO SCH (05:30)
[2023-11-03] MEDS: BUDESONIDE 0.5 MG/2 ML NEBU NEB SCH ×2 (07:16→19:10)
[2023-11-03] MEDS: HYDROGEN PEROXIDE 3% 118 ML BOTTLE TP SCH ×2 (07:16→19:10)
[2023-11-03] MEDS: TOLTERODINE 1 MG TABLET PO SCH ×2 (09:10→17:39)
[2023-11-03] MEDS: DORZOLAMIDE/TIMOLOL OPHT DROP 10 ML BOTTLE EACHEYE SCH ×2 (09:10→17:39)
[2023-11-03] MEDS: FOLIC ACID 1 MG TABLET PO SCH (09:11)
[2023-11-03] MEDS: FERROUS SULFATE 325 MG TABEC PO SCH (09:11)
[2023-11-03] MEDS: levETIRAcetam 500 MG/5 ML LIQUID UDC PO SCH ×2 (09:11→17:39)
[2023-11-03] MEDS: MIRALAX 17 GM POWD.PACK PO SCH ×2 (09:12→17:39)
[2023-11-03] MEDS: REMEDY ESSENTIAL ZINC PASTE 113 GM TP SCH ×2 (09:12→20:10)
[2023-11-03] MEDS: VITAMINS A AND D 5 GM UD PKT TP SCH ×2 (09:12→20:10)
[2023-11-03] MEDS: GUAIFENESIN SUGAR FREE 100 MG/5 ML UDC PO PRN ×2 (09:13→17:39)
[2023-11-03] MEDS: BENZONATATE 100 MG CAPSULE PO PRN ×2 (09:13→17:39)
[2023-11-03] MEDS: OMEGA-3 FATTY ACIDS/FISH OIL CAPSULE PO SCH (17:39)
[2023-11-03] MEDS: CHOLECALCIFEROL 1,000 UNIT TABLET PO SCH (17:39)
[2023-11-03] MEDS: ASPIRIN 81 MG TAB.CHEW PO SCH (17:39)
[2023-11-03] MEDS: ATORVASTATIN 20 MG TABLET PO SCH (17:39)
[2023-11-03] MEDS: MAGNESIUM OXIDE 400 MG TABLET PO SCH (17:39)
[2023-11-03] MEDS: MULTIVIT, IRON, MIN NO. 8, FA TABLET PO SCH (17:39)
[2023-11-03] MEDS: LATANOPROST OPHT DROP 2.5 ML BOTTLE EACHEYE SCH (20:10)
[2023-11-04] VITALS (10 sets, daily range): TEMP 97.7–97.8; O2SAT 97–99
[2023-11-04] MEDS: IPRATROPIUM/ALBUTEROL SULFATE 3 ML AMPUL.NEB NEB SCH ×4 (01:10→19:04)
[2023-11-04] MEDS: LEVOTHYROXINE SODIUM 112 MCG TABLET PO SCH (05:52)
[2023-11-04] MEDS: BUDESONIDE 0.5 MG/2 ML NEBU NEB SCH ×2 (07:20→19:04)
[2023-11-04] MEDS: HYDROGEN PEROXIDE 3% 118 ML BOTTLE TP SCH ×2 (07:20→19:05)
[2023-11-04] MEDS: FOLIC ACID 1 MG TABLET PO SCH (09:03)
[2023-11-04] MEDS: TOLTERODINE 1 MG TABLET PO SCH ×2 (09:03→17:00)
[2023-11-04] MEDS: FERROUS SULFATE 325 MG TABEC PO SCH (09:03)
[2023-11-04] MEDS: DORZOLAMIDE/TIMOLOL OPHT DROP 10 ML BOTTLE EACHEYE SCH ×2 (09:03→17:00)
[2023-11-04] MEDS: levETIRAcetam 500 MG/5 ML LIQUID UDC PO SCH ×2 (09:03→17:00)
[2023-11-04] MEDS: MIRALAX 17 GM POWD.PACK PO SCH ×2 (09:04→17:00)
[2023-11-04] MEDS: GUAIFENESIN SUGAR FREE 100 MG/5 ML UDC PO PRN ×2 (09:04→18:22)
[2023-11-04] MEDS: REMEDY ESSENTIAL ZINC PASTE 113 GM TP SCH ×2 (09:04→21:03)
[2023-11-04] MEDS: VITAMINS A AND D 5 GM UD PKT TP SCH ×2 (09:04→21:03)
[2023-11-04] MEDS: BENZONATATE 100 MG CAPSULE PO PRN ×2 (09:05→18:22)
[2023-11-04] MEDS: MAGNESIUM OXIDE 400 MG TABLET PO SCH (18:22)
[2023-11-04] MEDS: CHOLECALCIFEROL 1,000 UNIT TABLET PO SCH (18:22)
[2023-11-04] MEDS: ATORVASTATIN 20 MG TABLET PO SCH (18:22)
[2023-11-04] MEDS: OMEGA-3 FATTY ACIDS/FISH OIL CAPSULE PO SCH (18:22)
[2023-11-04] MEDS: MULTIVIT, IRON, MIN NO. 8, FA TABLET PO SCH (18:22)
[2023-11-04] MEDS: ASPIRIN 81 MG TAB.CHEW PO SCH (18:22)
[2023-11-04] MEDS: LATANOPROST OPHT DROP 2.5 ML BOTTLE EACHEYE SCH (21:03)
[2023-11-05] VITALS (10 sets, daily range): TEMP 98.4–98.6; O2SAT 97–99
[2023-11-05] MEDS: IPRATROPIUM/ALBUTEROL SULFATE 3 ML AMPUL.NEB NEB SCH ×4 (02:08→19:10)
[2023-11-05] MEDS: LEVOTHYROXINE SODIUM 112 MCG TABLET PO SCH (05:46)
[2023-11-05] MEDS: BUDESONIDE 0.5 MG/2 ML NEBU NEB SCH ×2 (07:24→19:10)
[2023-11-05] MEDS: HYDROGEN PEROXIDE 3% 118 ML BOTTLE TP SCH ×2 (09:00→19:10)
[2023-11-05] MEDS: DORZOLAMIDE/TIMOLOL OPHT DROP 10 ML BOTTLE EACHEYE SCH ×2 (09:26→16:29)
[2023-11-05] MEDS: TOLTERODINE 1 MG TABLET PO SCH ×2 (09:26→16:30)
[2023-11-05] MEDS: FERROUS SULFATE 325 MG TABEC PO SCH (09:26)
[2023-11-05] MEDS: FOLIC ACID 1 MG TABLET PO SCH (09:27)
[2023-11-05] MEDS: levETIRAcetam 500 MG/5 ML LIQUID UDC PO SCH ×2 (09:27→16:30)
[2023-11-05] MEDS: REMEDY ESSENTIAL ZINC PASTE 113 GM TP SCH ×2 (09:28→20:38)
[2023-11-05] MEDS: MIRALAX 17 GM POWD.PACK PO SCH ×2 (09:28→16:30)
[2023-11-05] MEDS: VITAMINS A AND D 5 GM UD PKT TP SCH ×2 (09:28→20:38)
[2023-11-05] MEDS: BENZONATATE 100 MG CAPSULE PO PRN (09:28)
[2023-11-05] MEDS: GUAIFENESIN SUGAR FREE 100 MG/5 ML UDC PO PRN (09:29)
[2023-11-05] MEDS: ASPIRIN 81 MG TAB.CHEW PO SCH (17:04)
[2023-11-05] MEDS: CHOLECALCIFEROL 1,000 UNIT TABLET PO SCH (17:04)
[2023-11-05] MEDS: MAGNESIUM OXIDE 400 MG TABLET PO SCH (17:04)
[2023-11-05] MEDS: OMEGA-3 FATTY ACIDS/FISH OIL CAPSULE PO SCH (17:04)
[2023-11-05] MEDS: MULTIVIT, IRON, MIN NO. 8, FA TABLET PO SCH (17:04)
[2023-11-05] MEDS: ATORVASTATIN 20 MG TABLET PO SCH (17:04)
[2023-11-05] MEDS: LATANOPROST OPHT DROP 2.5 ML BOTTLE EACHEYE SCH (20:38)
[2023-11-06] VITALS (10 sets, daily range): TEMP 97.6–98.6; O2SAT 98–99
[2023-11-06] MEDS: IPRATROPIUM/ALBUTEROL SULFATE 3 ML AMPUL.NEB NEB SCH ×4 (00:37→19:10)
[2023-11-06] MEDS: LEVOTHYROXINE SODIUM 112 MCG TABLET PO SCH (05:54)
[2023-11-06] MEDS: BUDESONIDE 0.5 MG/2 ML NEBU NEB SCH ×2 (08:09→19:10)
[2023-11-06] MEDS: HYDROGEN PEROXIDE 3% 118 ML BOTTLE TP SCH ×2 (08:09→19:10)
[2023-11-06] MEDS: FERROUS SULFATE 325 MG TABEC PO SCH (09:41)
[2023-11-06] MEDS: DORZOLAMIDE/TIMOLOL OPHT DROP 10 ML BOTTLE EACHEYE SCH ×2 (09:41→17:30)
[2023-11-06] MEDS: FOLIC ACID 1 MG TABLET PO SCH (09:41)
[2023-11-06] MEDS: levETIRAcetam 500 MG/5 ML LIQUID UDC PO SCH ×2 (09:41→17:30)
[2023-11-06] MEDS: TOLTERODINE 1 MG TABLET PO SCH ×2 (09:41→17:30)
[2023-11-06] MEDS: REMEDY ESSENTIAL ZINC PASTE 113 GM TP SCH ×2 (09:42→21:41)
[2023-11-06] MEDS: MIRALAX 17 GM POWD.PACK PO SCH ×2 (09:42→17:30)
[2023-11-06] MEDS: VITAMINS A AND D 5 GM UD PKT TP SCH ×2 (09:42→21:41)
[2023-11-06] MEDS: CHOLECALCIFEROL 1,000 UNIT TABLET PO SCH (17:30)
[2023-11-06] MEDS: ASPIRIN 81 MG TAB.CHEW PO SCH (17:30)
[2023-11-06] MEDS: ATORVASTATIN 20 MG TABLET PO SCH (17:30)
[2023-11-06] MEDS: OMEGA-3 FATTY ACIDS/FISH OIL CAPSULE PO SCH (17:30)
[2023-11-06] MEDS: MULTIVIT, IRON, MIN NO. 8, FA TABLET PO SCH (17:30)
[2023-11-06] MEDS: MAGNESIUM OXIDE 400 MG TABLET PO SCH (17:30)
[2023-11-06] MEDS: LATANOPROST OPHT DROP 2.5 ML BOTTLE EACHEYE SCH (21:41)
[2023-11-07] VITALS (9 sets, daily range): TEMP 96.8–97.6; O2SAT 98–99
[2023-11-07] MEDS: IPRATROPIUM/ALBUTEROL SULFATE 3 ML AMPUL.NEB NEB SCH ×4 (01:49→19:28)
[2023-11-07 06:07] LABS: BASOPHILS % (AUTO) 0.5 % (0.0-2.0); EOSINOPHILS # (AUTO) 0.1 K/uL (0.0-0.7); EOSINOPHILS % (AUTO) 2.6 % (0.0-7.0); HEMATOCRIT 33.4 % (31.2-41.9); HEMOGLOBIN 11.1 g/dL (10.9-14.3); LYMPHOCYTES # (AUTO) 1.4 K/uL (0.8-4.8); LYMPHOCYTES % (AUTO) 26.3 % (20.5-51.5); MEAN CORPUSCULAR HEMOGLOBIN 29.5 uug (24.7-32.8); MEAN CORPUSCULAR HGB CONC 33 g/dL (32.3-35.6); MEAN CORPUSCULAR VOLUME 89.2 fL (75.5-95.3); MONOCYTES # (AUTO) 0.6 K/uL (0.1-1.30); MONOCYTES % (AUTO) 12.1 % (0.0-11.0); NEUTROPHILS % (AUTO) 58.5 % (38.5-71.5); PLATELET COUNT (AUTO) 210 K/uL (179-408); RED BLOOD CELL COUNT(AUTO) 3.74 MIL/uL (3.63-4.92); RED CELL DISTRIBUTION WIDTH 15.3 % (12.3-17.7); WHITE BLOOD COUNT (AUTO) 5.2 K/uL (3.8-11.8)
[2023-11-07] MEDS: LEVOTHYROXINE SODIUM 112 MCG TABLET PO SCH (06:08)
[2023-11-07 07:09] LABS: CALCIUM 8.9 mg/dL (8.5-10.1); CARBON DIOXIDE 37 mmol/L (21-32); CHLORIDE 98 mmol/L (98-107); CREATININE 0.6 mg/dL (0.6-1.3); GLUCOSE 99 mg/dL (74-106); MAGNESIUM 2.1 mg/dL (1.8-2.4); PHOSPHOROUS 4.1 mg/dL (2.5-4.9); POTASSIUM 4.2 mmol/L (3.5-5.1); SODIUM SERUM 135 mmol/L (136-145); UREA NITROGEN, BLOOD 11 mg/dL (7-18)
[2023-11-07 07:22] LABS: DIFFERENTIAL COMMENT 1
[2023-11-07] MEDS: BUDESONIDE 0.5 MG/2 ML NEBU NEB SCH ×2 (07:28→19:28)
[2023-11-07] MEDS: HYDROGEN PEROXIDE 3% 118 ML BOTTLE TP SCH ×2 (07:28→19:28)
[2023-11-07] MEDS: TOLTERODINE 1 MG TABLET PO SCH ×2 (09:31→16:56)
[2023-11-07] MEDS: levETIRAcetam 500 MG/5 ML LIQUID UDC PO SCH ×2 (09:31→16:56)
[2023-11-07] MEDS: VITAMINS A AND D 5 GM UD PKT TP SCH ×2 (09:31→20:25)
[2023-11-07] MEDS: FOLIC ACID 1 MG TABLET PO SCH (09:31)
[2023-11-07] MEDS: REMEDY ESSENTIAL ZINC PASTE 113 GM TP SCH ×2 (09:31→20:25)
[2023-11-07] MEDS: MIRALAX 17 GM POWD.PACK PO SCH ×2 (09:31→16:56)
[2023-11-07] MEDS: DORZOLAMIDE/TIMOLOL OPHT DROP 10 ML BOTTLE EACHEYE SCH ×2 (09:31→16:56)
[2023-11-07] MEDS: FERROUS SULFATE 325 MG TABEC PO SCH (09:31)
[2023-11-07] MEDS: CHOLECALCIFEROL 1,000 UNIT TABLET PO SCH (17:32)
[2023-11-07] MEDS: ATORVASTATIN 20 MG TABLET PO SCH (17:32)
[2023-11-07] MEDS: ASPIRIN 81 MG TAB.CHEW PO SCH (17:32)
[2023-11-07] MEDS: OMEGA-3 FATTY ACIDS/FISH OIL CAPSULE PO SCH (17:32)
[2023-11-07] MEDS: MAGNESIUM OXIDE 400 MG TABLET PO SCH (17:32)
[2023-11-07] MEDS: MULTIVIT, IRON, MIN NO. 8, FA TABLET PO SCH (17:32)
[2023-11-07] MEDS: LATANOPROST OPHT DROP 2.5 ML BOTTLE EACHEYE SCH (20:25)
[2023-11-08] VITALS (11 sets, daily range): TEMP 97.7–98.2; O2SAT 98–99
[2023-11-08] MEDS: IPRATROPIUM/ALBUTEROL SULFATE 3 ML AMPUL.NEB NEB SCH ×4 (01:31→19:22)
[2023-11-08] MEDS: LEVOTHYROXINE SODIUM 112 MCG TABLET PO SCH (05:40)
[2023-11-08] MEDS: BUDESONIDE 0.5 MG/2 ML NEBU NEB SCH ×2 (07:30→19:22)
[2023-11-08] MEDS: HYDROGEN PEROXIDE 3% 118 ML BOTTLE TP SCH ×2 (07:30→19:22)
[2023-11-08] MEDS: FERROUS SULFATE 325 MG TABEC PO SCH (10:00)
[2023-11-08] MEDS: REMEDY ESSENTIAL ZINC PASTE 113 GM TP SCH ×2 (10:00→21:56)
[2023-11-08] MEDS: levETIRAcetam 500 MG/5 ML LIQUID UDC PO SCH ×2 (10:00→16:45)
[2023-11-08] MEDS: DORZOLAMIDE/TIMOLOL OPHT DROP 10 ML BOTTLE EACHEYE SCH ×2 (10:00→16:45)
[2023-11-08] MEDS: FOLIC ACID 1 MG TABLET PO SCH (10:00)
[2023-11-08] MEDS: VITAMINS A AND D 5 GM UD PKT TP SCH ×2 (10:00→21:56)
[2023-11-08] MEDS: TOLTERODINE 1 MG TABLET PO SCH ×2 (10:00→16:45)
[2023-11-08] MEDS: MIRALAX 17 GM POWD.PACK PO SCH ×2 (10:00→16:46)
[2023-11-08] MEDS: GUAIFENESIN SUGAR FREE 100 MG/5 ML UDC PO PRN ×2 (10:22→17:06)
[2023-11-08] MEDS: BENZONATATE 100 MG CAPSULE PO PRN ×2 (10:22→17:06)
[2023-11-08] MEDS: CHOLECALCIFEROL 1,000 UNIT TABLET PO SCH (17:06)
[2023-11-08] MEDS: ASPIRIN 81 MG TAB.CHEW PO SCH (17:06)
[2023-11-08] MEDS: ATORVASTATIN 20 MG TABLET PO SCH (17:06)
[2023-11-08] MEDS: MAGNESIUM OXIDE 400 MG TABLET PO SCH (17:06)
[2023-11-08] MEDS: MULTIVIT, IRON, MIN NO. 8, FA TABLET PO SCH (17:06)
[2023-11-08] MEDS: OMEGA-3 FATTY ACIDS/FISH OIL CAPSULE PO SCH (17:06)
[2023-11-08] MEDS: LATANOPROST OPHT DROP 2.5 ML BOTTLE EACHEYE SCH (21:56)
[2023-11-09] VITALS (10 sets, daily range): TEMP 97.3–97.8; O2SAT 98–99
[2023-11-09] MEDS: IPRATROPIUM/ALBUTEROL SULFATE 3 ML AMPUL.NEB NEB SCH ×4 (01:53→19:06)
[2023-11-09] MEDS: LEVOTHYROXINE SODIUM 112 MCG TABLET PO SCH (06:34)
[2023-11-09] MEDS: BUDESONIDE 0.5 MG/2 ML NEBU NEB SCH ×2 (07:30→19:06)
[2023-11-09] MEDS: TOLTERODINE 1 MG TABLET PO SCH ×2 (09:41→16:33)
[2023-11-09] MEDS: FERROUS SULFATE 325 MG TABEC PO SCH (09:41)
[2023-11-09] MEDS: DORZOLAMIDE/TIMOLOL OPHT DROP 10 ML BOTTLE EACHEYE SCH ×2 (09:41→16:33)
[2023-11-09] MEDS: FOLIC ACID 1 MG TABLET PO SCH (09:42)
[2023-11-09] MEDS: levETIRAcetam 500 MG/5 ML LIQUID UDC PO SCH ×2 (09:42→16:33)
[2023-11-09] MEDS: GUAIFENESIN SUGAR FREE 100 MG/5 ML UDC PO PRN (09:43)
[2023-11-09] MEDS: BENZONATATE 100 MG CAPSULE PO PRN (09:43)
[2023-11-09] MEDS: VITAMINS A AND D 5 GM UD PKT TP SCH ×2 (09:43→20:13)
[2023-11-09] MEDS: REMEDY ESSENTIAL ZINC PASTE 113 GM TP SCH ×2 (09:43→20:13)
[2023-11-09] MEDS: MIRALAX 17 GM POWD.PACK PO SCH ×2 (09:43→16:33)
[2023-11-09] MEDS: HYDROGEN PEROXIDE 3% 118 ML BOTTLE TP SCH ×2 (09:46→21:32)
[2023-11-09] MEDS ORDERED: TUBERCULIN,PURIF.PROT.DERIV. 5 TU/0.1 ML TEST ID SCH (12:00)
[2023-11-09] MEDS: ASPIRIN 81 MG TAB.CHEW PO SCH (17:21)
[2023-11-09] MEDS: OMEGA-3 FATTY ACIDS/FISH OIL CAPSULE PO SCH (17:21)
[2023-11-09] MEDS: MAGNESIUM OXIDE 400 MG TABLET PO SCH (17:21)
[2023-11-09] MEDS: MULTIVIT, IRON, MIN NO. 8, FA TABLET PO SCH (17:21)
[2023-11-09] MEDS: CHOLECALCIFEROL 1,000 UNIT TABLET PO SCH (17:21)
[2023-11-09] MEDS: ATORVASTATIN 20 MG TABLET PO SCH (17:21)
[2023-11-09] MEDS: HYDROGEN PEROXIDE 3% 118 ML BOTTLE TP PRN (19:06)
[2023-11-09] MEDS: LATANOPROST OPHT DROP 2.5 ML BOTTLE EACHEYE SCH (20:13)
[2023-11-10] VITALS (10 sets, daily range): TEMP 97.5–98.7; O2SAT 98–99
[2023-11-10] MEDS: IPRATROPIUM/ALBUTEROL SULFATE 3 ML AMPUL.NEB NEB SCH ×4 (00:32→19:16)
[2023-11-10] MEDS: LEVOTHYROXINE SODIUM 112 MCG TABLET PO SCH (05:58)
[2023-11-10] MEDS: HYDROGEN PEROXIDE 3% 118 ML BOTTLE TP SCH ×2 (07:40→19:16)
[2023-11-10] MEDS: BUDESONIDE 0.5 MG/2 ML NEBU NEB SCH ×2 (07:40→19:16)
[2023-11-10] MEDS: TOLTERODINE 1 MG TABLET PO SCH ×2 (08:44→16:12)
[2023-11-10] MEDS: DORZOLAMIDE/TIMOLOL OPHT DROP 10 ML BOTTLE EACHEYE SCH ×2 (08:44→16:12)
[2023-11-10] MEDS: FERROUS SULFATE 325 MG TABEC PO SCH (08:44)
[2023-11-10] MEDS: MIRALAX 17 GM POWD.PACK PO SCH ×2 (08:45→16:12)
[2023-11-10] MEDS: FOLIC ACID 1 MG TABLET PO SCH (08:45)
[2023-11-10] MEDS: levETIRAcetam 500 MG/5 ML LIQUID UDC PO SCH ×2 (08:45→16:12)
[2023-11-10] MEDS: VITAMINS A AND D 5 GM UD PKT TP SCH ×2 (08:46→21:00)
[2023-11-10] MEDS: REMEDY ESSENTIAL ZINC PASTE 113 GM TP SCH ×2 (08:46→21:00)
[2023-11-10] MEDS: GUAIFENESIN SUGAR FREE 100 MG/5 ML UDC PO PRN (08:46)
[2023-11-10] MEDS: BENZONATATE 100 MG CAPSULE PO PRN (08:46)
[2023-11-10] MEDS: MAGNESIUM OXIDE 400 MG TABLET PO SCH (17:13)
[2023-11-10] MEDS: CHOLECALCIFEROL 1,000 UNIT TABLET PO SCH (17:13)
[2023-11-10] MEDS: ASPIRIN 81 MG TAB.CHEW PO SCH (17:13)
[2023-11-10] MEDS: OMEGA-3 FATTY ACIDS/FISH OIL CAPSULE PO SCH (17:13)
[2023-11-10] MEDS: MULTIVIT, IRON, MIN NO. 8, FA TABLET PO SCH (17:13)
[2023-11-10] MEDS: ATORVASTATIN 20 MG TABLET PO SCH (17:13)
[2023-11-10] MEDS: LATANOPROST OPHT DROP 2.5 ML BOTTLE EACHEYE SCH (21:00)
[2023-11-11] VITALS (10 sets, daily range): TEMP 97.6–98.8; O2SAT 98–99
[2023-11-11] MEDS: IPRATROPIUM/ALBUTEROL SULFATE 3 ML AMPUL.NEB NEB SCH ×4 (01:14→19:03)
[2023-11-11] MEDS: LEVOTHYROXINE SODIUM 112 MCG TABLET PO SCH (05:34)
[2023-11-11] MEDS: HYDROGEN PEROXIDE 3% 118 ML BOTTLE TP SCH ×2 (07:21→19:03)
[2023-11-11] MEDS: BUDESONIDE 0.5 MG/2 ML NEBU NEB SCH ×2 (07:21→19:03)
[2023-11-11] MEDS: BENZONATATE 100 MG CAPSULE PO PRN ×2 (09:00→18:55)
[2023-11-11] MEDS: GUAIFENESIN SUGAR FREE 100 MG/5 ML UDC PO PRN ×2 (09:00→18:53)
[2023-11-11] MEDS: DORZOLAMIDE/TIMOLOL OPHT DROP 10 ML BOTTLE EACHEYE SCH ×2 (09:15→17:02)
[2023-11-11] MEDS: FERROUS SULFATE 325 MG TABEC PO SCH (09:15)
[2023-11-11] MEDS: TOLTERODINE 1 MG TABLET PO SCH ×2 (09:15→17:02)
[2023-11-11] MEDS: REMEDY ESSENTIAL ZINC PASTE 113 GM TP SCH ×2 (09:16→20:42)
[2023-11-11] MEDS: MIRALAX 17 GM POWD.PACK PO SCH ×2 (09:16→17:03)
[2023-11-11] MEDS: FOLIC ACID 1 MG TABLET PO SCH (09:16)
[2023-11-11] MEDS: VITAMINS A AND D 5 GM UD PKT TP SCH ×2 (09:16→20:35)
[2023-11-11] MEDS: levETIRAcetam 500 MG/5 ML LIQUID UDC PO SCH ×2 (09:16→17:02)
[2023-11-11] MEDS ORDERED: TUBERCULIN,PURIF.PROT.DERIV. 5 TU/0.1 ML TEST ID ONE (14:00)
[2023-11-11] MEDS: ATORVASTATIN 20 MG TABLET PO SCH (17:03)
[2023-11-11] MEDS: OMEGA-3 FATTY ACIDS/FISH OIL CAPSULE PO SCH (17:03)
[2023-11-11] MEDS: MAGNESIUM OXIDE 400 MG TABLET PO SCH (17:03)
[2023-11-11] MEDS: ASPIRIN 81 MG TAB.CHEW PO SCH (17:03)
[2023-11-11] MEDS: CHOLECALCIFEROL 1,000 UNIT TABLET PO SCH (17:04)
[2023-11-11] MEDS: MULTIVIT, IRON, MIN NO. 8, FA TABLET PO SCH (17:04)
[2023-11-11] MEDS: LATANOPROST OPHT DROP 2.5 ML BOTTLE EACHEYE SCH (20:35)
[2023-11-12] VITALS (10 sets, daily range): TEMP 97.9–98; O2SAT 98–99
[2023-11-12] MEDS: IPRATROPIUM/ALBUTEROL SULFATE 3 ML AMPUL.NEB NEB SCH ×4 (00:30→20:13)
[2023-11-12] MEDS: LEVOTHYROXINE SODIUM 112 MCG TABLET PO SCH (06:06)
[2023-11-12] MEDS: BUDESONIDE 0.5 MG/2 ML NEBU NEB SCH ×2 (07:30→20:13)
[2023-11-12] MEDS: HYDROGEN PEROXIDE 3% 118 ML BOTTLE TP SCH ×2 (09:00→20:13)
[2023-11-12] MEDS: TOLTERODINE 1 MG TABLET PO SCH ×2 (09:32→17:18)
[2023-11-12] MEDS: DORZOLAMIDE/TIMOLOL OPHT DROP 10 ML BOTTLE EACHEYE SCH ×2 (09:32→17:18)
[2023-11-12] MEDS: FERROUS SULFATE 325 MG TABEC PO SCH (09:32)
[2023-11-12] MEDS: FOLIC ACID 1 MG TABLET PO SCH (09:32)
[2023-11-12] MEDS: VITAMINS A AND D 5 GM UD PKT TP SCH ×2 (09:33→20:36)
[2023-11-12] MEDS: REMEDY ESSENTIAL ZINC PASTE 113 GM TP SCH ×2 (09:33→20:36)
[2023-11-12] MEDS: levETIRAcetam 500 MG/5 ML LIQUID UDC PO SCH ×2 (09:33→17:18)
[2023-11-12] MEDS: MIRALAX 17 GM POWD.PACK PO SCH ×2 (09:33→17:18)
[2023-11-12] MEDS: MAGNESIUM OXIDE 400 MG TABLET PO SCH (17:18)
[2023-11-12] MEDS: ATORVASTATIN 20 MG TABLET PO SCH (17:18)
[2023-11-12] MEDS: BENZONATATE 100 MG CAPSULE PO PRN (17:18)
[2023-11-12] MEDS: CHOLECALCIFEROL 1,000 UNIT TABLET PO SCH (17:18)
[2023-11-12] MEDS: ASPIRIN 81 MG TAB.CHEW PO SCH (17:18)
[2023-11-12] MEDS: OMEGA-3 FATTY ACIDS/FISH OIL CAPSULE PO SCH (17:18)
[2023-11-12] MEDS: MULTIVIT, IRON, MIN NO. 8, FA TABLET PO SCH (17:18)
[2023-11-12] MEDS: GUAIFENESIN SUGAR FREE 100 MG/5 ML UDC PO PRN (17:18)
[2023-11-12] MEDS: LATANOPROST OPHT DROP 2.5 ML BOTTLE EACHEYE SCH (20:36)
[2023-11-13] VITALS (10 sets, daily range): TEMP 97.8–98.8; O2SAT 96–99
[2023-11-13] MEDS: IPRATROPIUM/ALBUTEROL SULFATE 3 ML AMPUL.NEB NEB SCH ×4 (01:18→19:12)
[2023-11-13] MEDS: LEVOTHYROXINE SODIUM 112 MCG TABLET PO SCH (05:50)
[2023-11-13] MEDS: BUDESONIDE 0.5 MG/2 ML NEBU NEB SCH ×2 (07:30→19:12)
[2023-11-13] MEDS: DORZOLAMIDE/TIMOLOL OPHT DROP 10 ML BOTTLE EACHEYE SCH ×2 (09:11→17:17)
[2023-11-13] MEDS: FERROUS SULFATE 325 MG TABEC PO SCH (09:12)
[2023-11-13] MEDS: FOLIC ACID 1 MG TABLET PO SCH (09:12)
[2023-11-13] MEDS: TOLTERODINE 1 MG TABLET PO SCH ×2 (09:12→17:17)
[2023-11-13] MEDS: REMEDY ESSENTIAL ZINC PASTE 113 GM TP SCH ×2 (09:14→21:02)
[2023-11-13] MEDS: MIRALAX 17 GM POWD.PACK PO SCH ×2 (09:14→17:17)
[2023-11-13] MEDS: VITAMINS A AND D 5 GM UD PKT TP SCH ×2 (09:14→21:02)
[2023-11-13] MEDS: levETIRAcetam 500 MG/5 ML LIQUID UDC PO SCH ×2 (09:14→17:17)
[2023-11-13] MEDS: GUAIFENESIN SUGAR FREE 100 MG/5 ML UDC PO PRN ×2 (09:15→18:09)
[2023-11-13] MEDS: BENZONATATE 100 MG CAPSULE PO PRN ×2 (09:15→18:09)
[2023-11-13] MEDS: HYDROGEN PEROXIDE 3% 118 ML BOTTLE TP SCH ×2 (09:59→21:59)
[2023-11-13] MEDS: ASPIRIN 81 MG TAB.CHEW PO SCH (17:17)
[2023-11-13] MEDS: OMEGA-3 FATTY ACIDS/FISH OIL CAPSULE PO SCH (17:17)
[2023-11-13] MEDS: ATORVASTATIN 20 MG TABLET PO SCH (17:17)
[2023-11-13] MEDS: MAGNESIUM OXIDE 400 MG TABLET PO SCH (17:17)
[2023-11-13] MEDS: CHOLECALCIFEROL 1,000 UNIT TABLET PO SCH (17:17)
[2023-11-13] MEDS: MULTIVIT, IRON, MIN NO. 8, FA TABLET PO SCH (17:17)
[2023-11-13] MEDS: LATANOPROST OPHT DROP 2.5 ML BOTTLE EACHEYE SCH (21:02)
[2023-11-14] VITALS (9 sets, daily range): TEMP 97–97.7; O2SAT 97–99
[2023-11-14] MEDS: IPRATROPIUM/ALBUTEROL SULFATE 3 ML AMPUL.NEB NEB SCH ×4 (01:30→19:11)
[2023-11-14] MEDS: LEVOTHYROXINE SODIUM 112 MCG TABLET PO SCH (05:49)
[2023-11-14] MEDS: BUDESONIDE 0.5 MG/2 ML NEBU NEB SCH ×2 (07:17→19:11)
[2023-11-14] MEDS: HYDROGEN PEROXIDE 3% 118 ML BOTTLE TP SCH ×2 (07:17→19:11)
[2023-11-14] MEDS: DORZOLAMIDE/TIMOLOL OPHT DROP 10 ML BOTTLE EACHEYE SCH ×2 (09:00→17:07)
[2023-11-14] MEDS: TOLTERODINE 1 MG TABLET PO SCH ×2 (09:00→17:08)
[2023-11-14] MEDS: REMEDY ESSENTIAL ZINC PASTE 113 GM TP SCH ×2 (09:00→20:11)
[2023-11-14] MEDS: MIRALAX 17 GM POWD.PACK PO SCH ×2 (09:00→17:08)
[2023-11-14] MEDS: FOLIC ACID 1 MG TABLET PO SCH (09:00)
[2023-11-14] MEDS: VITAMINS A AND D 5 GM UD PKT TP SCH ×2 (09:00→20:11)
[2023-11-14] MEDS: FERROUS SULFATE 325 MG TABEC PO SCH (09:00)
[2023-11-14] MEDS: levETIRAcetam 500 MG/5 ML LIQUID UDC PO SCH ×2 (09:00→17:08)
[2023-11-14] MEDS: GUAIFENESIN SUGAR FREE 100 MG/5 ML UDC PO PRN ×2 (10:14→17:10)
[2023-11-14] MEDS: BENZONATATE 100 MG CAPSULE PO PRN ×2 (10:14→17:10)
[2023-11-14] MEDS: ATORVASTATIN 20 MG TABLET PO SCH (17:09)
[2023-11-14] MEDS: ASPIRIN 81 MG TAB.CHEW PO SCH (17:09)
[2023-11-14] MEDS: MAGNESIUM OXIDE 400 MG TABLET PO SCH (17:09)
[2023-11-14] MEDS: OMEGA-3 FATTY ACIDS/FISH OIL CAPSULE PO SCH (17:09)
[2023-11-14] MEDS: CHOLECALCIFEROL 1,000 UNIT TABLET PO SCH (17:10)
[2023-11-14] MEDS: MULTIVIT, IRON, MIN NO. 8, FA TABLET PO SCH (17:10)
[2023-11-14] MEDS: LATANOPROST OPHT DROP 2.5 ML BOTTLE EACHEYE SCH (20:11)
[2023-11-15] VITALS (10 sets, daily range): TEMP 97.6–97.8; O2SAT 98–99
[2023-11-15] MEDS: IPRATROPIUM/ALBUTEROL SULFATE 3 ML AMPUL.NEB NEB SCH ×4 (00:30→19:09)
[2023-11-15] MEDS: LEVOTHYROXINE SODIUM 112 MCG TABLET PO SCH (05:43)
[2023-11-15] MEDS: BUDESONIDE 0.5 MG/2 ML NEBU NEB SCH ×2 (07:30→19:09)
[2023-11-15] MEDS: levETIRAcetam 500 MG/5 ML LIQUID UDC PO SCH ×2 (09:00→17:44)
[2023-11-15] MEDS: FOLIC ACID 1 MG TABLET PO SCH (09:00)
[2023-11-15] MEDS: REMEDY ESSENTIAL ZINC PASTE 113 GM TP SCH ×2 (09:00→21:24)
[2023-11-15] MEDS: FERROUS SULFATE 325 MG TABEC PO SCH (09:00)
[2023-11-15] MEDS: DORZOLAMIDE/TIMOLOL OPHT DROP 10 ML BOTTLE EACHEYE SCH ×2 (09:00→17:37)
[2023-11-15] MEDS: TOLTERODINE 1 MG TABLET PO SCH ×2 (09:00→17:41)
[2023-11-15] MEDS: VITAMINS A AND D 5 GM UD PKT TP SCH ×2 (09:00→21:24)
[2023-11-15] MEDS: MIRALAX 17 GM POWD.PACK PO SCH ×2 (09:00→17:45)
[2023-11-15] MEDS: HYDROGEN PEROXIDE 3% 118 ML BOTTLE TP SCH ×2 (09:21→19:09)
[2023-11-15] MEDS: BENZONATATE 100 MG CAPSULE PO PRN ×2 (10:56→17:52)
[2023-11-15] MEDS: GUAIFENESIN SUGAR FREE 100 MG/5 ML UDC PO PRN ×2 (10:58→17:52)
[2023-11-15] MEDS: ASPIRIN 81 MG TAB.CHEW PO SCH (17:45)
[2023-11-15] MEDS: OMEGA-3 FATTY ACIDS/FISH OIL CAPSULE PO SCH (17:47)
[2023-11-15] MEDS: ATORVASTATIN 20 MG TABLET PO SCH (17:48)
[2023-11-15] MEDS: MAGNESIUM OXIDE 400 MG TABLET PO SCH (17:49)
[2023-11-15] MEDS: CHOLECALCIFEROL 1,000 UNIT TABLET PO SCH (17:51)
[2023-11-15] MEDS: MULTIVIT, IRON, MIN NO. 8, FA TABLET PO SCH (17:51)
[2023-11-15] MEDS: LATANOPROST OPHT DROP 2.5 ML BOTTLE EACHEYE SCH (21:23)
[2023-11-16] VITALS (10 sets, daily range): TEMP 97.6–98.5; O2SAT 98–99
[2023-11-16] MEDS: IPRATROPIUM/ALBUTEROL SULFATE 3 ML AMPUL.NEB NEB SCH ×4 (00:30→19:08)
[2023-11-16] MEDS: BUDESONIDE 0.5 MG/2 ML NEBU NEB SCH ×2 (06:06→19:08)
[2023-11-16] MEDS: LEVOTHYROXINE SODIUM 112 MCG TABLET PO SCH (06:11)
[2023-11-16] MEDS: HYDROGEN PEROXIDE 3% 118 ML BOTTLE TP SCH ×2 (07:28→19:08)
[2023-11-16] MEDS: FOLIC ACID 1 MG TABLET PO SCH (09:37)
[2023-11-16] MEDS: DORZOLAMIDE/TIMOLOL OPHT DROP 10 ML BOTTLE EACHEYE SCH ×2 (09:37→16:42)
[2023-11-16] MEDS: TOLTERODINE 1 MG TABLET PO SCH ×2 (09:39→16:43)
[2023-11-16] MEDS: levETIRAcetam 500 MG/5 ML LIQUID UDC PO SCH ×2 (09:39→16:43)
[2023-11-16] MEDS: FERROUS SULFATE 325 MG TABEC PO SCH (09:39)
[2023-11-16] MEDS: BENZONATATE 100 MG CAPSULE PO PRN ×2 (09:40→16:48)
[2023-11-16] MEDS: REMEDY ESSENTIAL ZINC PASTE 113 GM TP SCH ×2 (09:40→21:59)
[2023-11-16] MEDS: VITAMINS A AND D 5 GM UD PKT TP SCH ×2 (09:40→21:59)
[2023-11-16] MEDS: GUAIFENESIN SUGAR FREE 100 MG/5 ML UDC PO PRN ×2 (09:40→16:49)
[2023-11-16] MEDS: MIRALAX 17 GM POWD.PACK PO SCH ×2 (09:40→16:44)
[2023-11-16] MEDS: ATORVASTATIN 20 MG TABLET PO SCH (17:40)
[2023-11-16] MEDS: ASPIRIN 81 MG TAB.CHEW PO SCH (17:40)
[2023-11-16] MEDS: MULTIVIT, IRON, MIN NO. 8, FA TABLET PO SCH (17:40)
[2023-11-16] MEDS: CHOLECALCIFEROL 1,000 UNIT TABLET PO SCH (17:40)
[2023-11-16] MEDS: MAGNESIUM OXIDE 400 MG TABLET PO SCH (17:40)
[2023-11-16] MEDS: OMEGA-3 FATTY ACIDS/FISH OIL CAPSULE PO SCH (17:40)
[2023-11-16] MEDS: LATANOPROST OPHT DROP 2.5 ML BOTTLE EACHEYE SCH (21:59)
[2023-11-17] VITALS (10 sets, daily range): TEMP 97.9–98.4; O2SAT 98–99
[2023-11-17] MEDS: IPRATROPIUM/ALBUTEROL SULFATE 3 ML AMPUL.NEB NEB SCH ×4 (00:30→19:01)
[2023-11-17] MEDS: LEVOTHYROXINE SODIUM 112 MCG TABLET PO SCH (05:31)
[2023-11-17] MEDS: BUDESONIDE 0.5 MG/2 ML NEBU NEB SCH ×2 (07:29→19:01)
[2023-11-17] MEDS: HYDROGEN PEROXIDE 3% 118 ML BOTTLE TP SCH ×2 (08:03→21:19)
[2023-11-17] MEDS: DORZOLAMIDE/TIMOLOL OPHT DROP 10 ML BOTTLE EACHEYE SCH ×2 (09:30→16:42)
[2023-11-17] MEDS: TOLTERODINE 1 MG TABLET PO SCH ×2 (09:31→16:42)
[2023-11-17] MEDS: FOLIC ACID 1 MG TABLET PO SCH (09:33)
[2023-11-17] MEDS: FERROUS SULFATE 325 MG TABEC PO SCH (09:33)
[2023-11-17] MEDS: levETIRAcetam 500 MG/5 ML LIQUID UDC PO SCH ×2 (09:35→16:44)
[2023-11-17] MEDS: MIRALAX 17 GM POWD.PACK PO SCH ×2 (09:36→16:44)
[2023-11-17] MEDS: REMEDY ESSENTIAL ZINC PASTE 113 GM TP SCH ×2 (09:36→20:15)
[2023-11-17] MEDS: VITAMINS A AND D 5 GM UD PKT TP SCH ×2 (09:36→20:15)
[2023-11-17] MEDS: GUAIFENESIN SUGAR FREE 100 MG/5 ML UDC PO PRN ×2 (09:38→16:52)
[2023-11-17] MEDS: BENZONATATE 100 MG CAPSULE PO PRN ×2 (09:38→16:53)
[2023-11-17] MEDS: MULTIVIT, IRON, MIN NO. 8, FA TABLET PO SCH (17:06)
[2023-11-17] MEDS: ASPIRIN 81 MG TAB.CHEW PO SCH (17:06)
[2023-11-17] MEDS: MAGNESIUM OXIDE 400 MG TABLET PO SCH (17:06)
[2023-11-17] MEDS: ATORVASTATIN 20 MG TABLET PO SCH (17:06)
[2023-11-17] MEDS: OMEGA-3 FATTY ACIDS/FISH OIL CAPSULE PO SCH (17:06)
[2023-11-17] MEDS: CHOLECALCIFEROL 1,000 UNIT TABLET PO SCH (17:06)
[2023-11-17] MEDS: LATANOPROST OPHT DROP 2.5 ML BOTTLE EACHEYE SCH (20:15)
[2023-11-18] VITALS (10 sets, daily range): TEMP 97.7–98; O2SAT 98–99
[2023-11-18] MEDS: IPRATROPIUM/ALBUTEROL SULFATE 3 ML AMPUL.NEB NEB SCH ×4 (00:36→19:19)
[2023-11-18] MEDS: LEVOTHYROXINE SODIUM 112 MCG TABLET PO SCH (05:35)
[2023-11-18] MEDS: BUDESONIDE 0.5 MG/2 ML NEBU NEB SCH ×2 (07:30→19:19)
[2023-11-18] MEDS: HYDROGEN PEROXIDE 3% 118 ML BOTTLE TP SCH ×2 (09:00→19:19)
[2023-11-18] MEDS: REMEDY ESSENTIAL ZINC PASTE 113 GM TP SCH ×2 (09:18→20:43)
[2023-11-18] MEDS: TOLTERODINE 1 MG TABLET PO SCH ×2 (09:18→16:33)
[2023-11-18] MEDS: VITAMINS A AND D 5 GM UD PKT TP SCH ×2 (09:18→20:43)
[2023-11-18] MEDS: MIRALAX 17 GM POWD.PACK PO SCH ×2 (09:18→16:33)
[2023-11-18] MEDS: levETIRAcetam 500 MG/5 ML LIQUID UDC PO SCH ×2 (09:18→16:33)
[2023-11-18] MEDS: DORZOLAMIDE/TIMOLOL OPHT DROP 10 ML BOTTLE EACHEYE SCH ×2 (09:18→16:33)
[2023-11-18] MEDS: BENZONATATE 100 MG CAPSULE PO PRN (09:18)
[2023-11-18] MEDS: FOLIC ACID 1 MG TABLET PO SCH (09:18)
[2023-11-18] MEDS: FERROUS SULFATE 325 MG TABEC PO SCH (09:18)
[2023-11-18] MEDS: GUAIFENESIN SUGAR FREE 100 MG/5 ML UDC PO PRN (09:19)
[2023-11-18] MEDS: ATORVASTATIN 20 MG TABLET PO SCH (17:13)
[2023-11-18] MEDS: CHOLECALCIFEROL 1,000 UNIT TABLET PO SCH (17:13)
[2023-11-18] MEDS: MULTIVIT, IRON, MIN NO. 8, FA TABLET PO SCH (17:13)
[2023-11-18] MEDS: MAGNESIUM OXIDE 400 MG TABLET PO SCH (17:13)
[2023-11-18] MEDS: ASPIRIN 81 MG TAB.CHEW PO SCH (17:13)
[2023-11-18] MEDS: OMEGA-3 FATTY ACIDS/FISH OIL CAPSULE PO SCH (17:13)
[2023-11-18] MEDS ORDERED: REMEDY ESSENTIAL ZINC PASTE 113 GM TP PRN (17:30)
[2023-11-18] MEDS: LATANOPROST OPHT DROP 2.5 ML BOTTLE EACHEYE SCH (20:43)
[2023-11-19] VITALS (9 sets, daily range): TEMP 97.9; O2SAT 98–99
[2023-11-19] MEDS: IPRATROPIUM/ALBUTEROL SULFATE 3 ML AMPUL.NEB NEB SCH ×4 (01:42→19:09)
[2023-11-19] MEDS: LEVOTHYROXINE SODIUM 112 MCG TABLET PO SCH (06:17)
[2023-11-19] MEDS: BUDESONIDE 0.5 MG/2 ML NEBU NEB SCH ×2 (07:22→19:09)
[2023-11-19] MEDS: HYDROGEN PEROXIDE 3% 118 ML BOTTLE TP SCH ×2 (08:58→19:09)
[2023-11-19] MEDS: TOLTERODINE 1 MG TABLET PO SCH ×2 (09:36→16:41)
[2023-11-19] MEDS: DORZOLAMIDE/TIMOLOL OPHT DROP 10 ML BOTTLE EACHEYE SCH ×2 (09:36→16:40)
[2023-11-19] MEDS: FOLIC ACID 1 MG TABLET PO SCH (09:37)
[2023-11-19] MEDS: FERROUS SULFATE 325 MG TABEC PO SCH (09:37)
[2023-11-19] MEDS: levETIRAcetam 500 MG/5 ML LIQUID UDC PO SCH ×2 (09:38→16:59)
[2023-11-19] MEDS: REMEDY ESSENTIAL ZINC PASTE 113 GM TP SCH ×2 (09:39→21:07)
[2023-11-19] MEDS: MIRALAX 17 GM POWD.PACK PO SCH ×2 (09:39→16:59)
[2023-11-19] MEDS: VITAMINS A AND D 5 GM UD PKT TP SCH ×2 (09:39→21:07)
[2023-11-19] MEDS: GUAIFENESIN SUGAR FREE 100 MG/5 ML UDC PO PRN ×2 (09:42→16:50)
[2023-11-19] MEDS: BENZONATATE 100 MG CAPSULE PO PRN ×2 (09:42→16:59)
[2023-11-19] MEDS: MULTIVIT, IRON, MIN NO. 8, FA TABLET PO SCH (17:00)
[2023-11-19] MEDS: MAGNESIUM OXIDE 400 MG TABLET PO SCH (17:00)
[2023-11-19] MEDS: ASPIRIN 81 MG TAB.CHEW PO SCH (17:00)
[2023-11-19] MEDS: OMEGA-3 FATTY ACIDS/FISH OIL CAPSULE PO SCH (17:00)
[2023-11-19] MEDS: ATORVASTATIN 20 MG TABLET PO SCH (17:00)
[2023-11-19] MEDS: CHOLECALCIFEROL 1,000 UNIT TABLET PO SCH (17:00)
[2023-11-19] MEDS: LATANOPROST OPHT DROP 2.5 ML BOTTLE EACHEYE SCH (21:07)
[2023-11-20] VITALS (10 sets, daily range): TEMP 97.5–97.6; O2SAT 98–99
[2023-11-20] MEDS: IPRATROPIUM/ALBUTEROL SULFATE 3 ML AMPUL.NEB NEB SCH ×4 (00:31→19:08)
[2023-11-20] MEDS: LEVOTHYROXINE SODIUM 112 MCG TABLET PO SCH (06:09)
[2023-11-20] MEDS: BUDESONIDE 0.5 MG/2 ML NEBU NEB SCH ×2 (07:46→19:08)
[2023-11-20] MEDS: HYDROGEN PEROXIDE 3% 118 ML BOTTLE TP SCH ×2 (07:46→19:08)
[2023-11-20] MEDS: DORZOLAMIDE/TIMOLOL OPHT DROP 10 ML BOTTLE EACHEYE SCH ×2 (08:42→16:55)
[2023-11-20] MEDS: FOLIC ACID 1 MG TABLET PO SCH (09:50)
[2023-11-20] MEDS: levETIRAcetam 500 MG/5 ML LIQUID UDC PO SCH ×2 (09:50→16:56)
[2023-11-20] MEDS: TOLTERODINE 1 MG TABLET PO SCH ×2 (09:50→16:56)
[2023-11-20] MEDS: FERROUS SULFATE 325 MG TABEC PO SCH (09:50)
[2023-11-20] MEDS: MIRALAX 17 GM POWD.PACK PO SCH ×2 (09:51→16:57)
[2023-11-20] MEDS: GUAIFENESIN SUGAR FREE 100 MG/5 ML UDC PO PRN ×2 (09:51→17:13)
[2023-11-20] MEDS: VITAMINS A AND D 5 GM UD PKT TP SCH ×2 (09:51→21:51)
[2023-11-20] MEDS: REMEDY ESSENTIAL ZINC PASTE 113 GM TP SCH ×2 (09:51→21:51)
[2023-11-20] MEDS: BENZONATATE 100 MG CAPSULE PO PRN ×2 (09:52→17:13)
[2023-11-20] MEDS: ASPIRIN 81 MG TAB.CHEW PO SCH (16:57)
[2023-11-20] MEDS: OMEGA-3 FATTY ACIDS/FISH OIL CAPSULE PO SCH (16:58)
[2023-11-20] MEDS: MAGNESIUM OXIDE 400 MG TABLET PO SCH (17:08)
[2023-11-20] MEDS: ATORVASTATIN 20 MG TABLET PO SCH (17:08)
[2023-11-20] MEDS: MULTIVIT, IRON, MIN NO. 8, FA TABLET PO SCH (17:08)
[2023-11-20] MEDS: CHOLECALCIFEROL 1,000 UNIT TABLET PO SCH (17:12)
[2023-11-20] MEDS: LATANOPROST OPHT DROP 2.5 ML BOTTLE EACHEYE SCH (21:51)
[2023-11-21] VITALS (10 sets, daily range): BP systolic 117; BP diastolic 53; TEMP 96.4–97.4; O2SAT 98–100
[2023-11-21] MEDS: IPRATROPIUM/ALBUTEROL SULFATE 3 ML AMPUL.NEB NEB SCH ×4 (00:32→19:10)
[2023-11-21] MEDS: LEVOTHYROXINE SODIUM 112 MCG TABLET PO SCH (06:35)
[2023-11-21] MEDS: BUDESONIDE 0.5 MG/2 ML NEBU NEB SCH ×2 (07:30→19:10)
[2023-11-21] MEDS: FERROUS SULFATE 325 MG TABEC PO SCH (09:20)
[2023-11-21] MEDS: DORZOLAMIDE/TIMOLOL OPHT DROP 10 ML BOTTLE EACHEYE SCH ×2 (09:20→17:17)
[2023-11-21] MEDS: TOLTERODINE 1 MG TABLET PO SCH ×2 (09:20→17:17)
[2023-11-21] MEDS: FOLIC ACID 1 MG TABLET PO SCH (09:20)
[2023-11-21] MEDS: levETIRAcetam 500 MG/5 ML LIQUID UDC PO SCH ×2 (09:20→17:17)
[2023-11-21] MEDS: MIRALAX 17 GM POWD.PACK PO SCH ×2 (09:21→17:17)
[2023-11-21] MEDS: REMEDY ESSENTIAL ZINC PASTE 113 GM TP SCH ×2 (09:22→20:43)
[2023-11-21] MEDS: GUAIFENESIN SUGAR FREE 100 MG/5 ML UDC PO PRN (09:22)
[2023-11-21] MEDS: VITAMINS A AND D 5 GM UD PKT TP SCH ×2 (09:22→20:43)
[2023-11-21] MEDS: BENZONATATE 100 MG CAPSULE PO PRN (09:22)
[2023-11-21] MEDS: HYDROGEN PEROXIDE 3% 118 ML BOTTLE TP SCH ×2 (09:43→20:19)
[2023-11-21] MEDS: ATORVASTATIN 20 MG TABLET PO SCH (17:18)
[2023-11-21] MEDS: MULTIVIT, IRON, MIN NO. 8, FA TABLET PO SCH (17:18)
[2023-11-21] MEDS: MAGNESIUM OXIDE 400 MG TABLET PO SCH (17:18)
[2023-11-21] MEDS: OMEGA-3 FATTY ACIDS/FISH OIL CAPSULE PO SCH (17:18)
[2023-11-21] MEDS: ASPIRIN 81 MG TAB.CHEW PO SCH (17:18)
[2023-11-21] MEDS: CHOLECALCIFEROL 1,000 UNIT TABLET PO SCH (17:18)
[2023-11-21] MEDS: LATANOPROST OPHT DROP 2.5 ML BOTTLE EACHEYE SCH (20:42)
[2023-11-22] VITALS (10 sets, daily range): TEMP 97.5–97.6; O2SAT 97–99
[2023-11-22] MEDS: IPRATROPIUM/ALBUTEROL SULFATE 3 ML AMPUL.NEB NEB SCH ×4 (01:12→19:23)
[2023-11-22] MEDS: LEVOTHYROXINE SODIUM 112 MCG TABLET PO SCH (06:38)
[2023-11-22] MEDS: BUDESONIDE 0.5 MG/2 ML NEBU NEB SCH ×2 (07:24→19:23)
[2023-11-22] MEDS: HYDROGEN PEROXIDE 3% 118 ML BOTTLE TP SCH ×2 (07:25→19:23)
[2023-11-22] MEDS: DORZOLAMIDE/TIMOLOL OPHT DROP 10 ML BOTTLE EACHEYE SCH ×2 (09:48→17:03)
[2023-11-22] MEDS: TOLTERODINE 1 MG TABLET PO SCH ×2 (09:48→17:03)
[2023-11-22] MEDS: FOLIC ACID 1 MG TABLET PO SCH (09:48)
[2023-11-22] MEDS: FERROUS SULFATE 325 MG TABEC PO SCH (09:48)
[2023-11-22] MEDS: levETIRAcetam 500 MG/5 ML LIQUID UDC PO SCH ×2 (09:49→17:03)
[2023-11-22] MEDS: MIRALAX 17 GM POWD.PACK PO SCH ×2 (09:50→17:03)
[2023-11-22] MEDS: REMEDY ESSENTIAL ZINC PASTE 113 GM TP SCH ×2 (09:50→21:31)
[2023-11-22] MEDS: VITAMINS A AND D 5 GM UD PKT TP SCH ×2 (09:50→21:31)
[2023-11-22] MEDS: GUAIFENESIN SUGAR FREE 100 MG/5 ML UDC PO PRN ×2 (09:51→17:08)
[2023-11-22] MEDS: BENZONATATE 100 MG CAPSULE PO PRN ×2 (09:51→17:08)
[2023-11-22] MEDS: OMEGA-3 FATTY ACIDS/FISH OIL CAPSULE PO SCH (17:03)
[2023-11-22] MEDS: ASPIRIN 81 MG TAB.CHEW PO SCH (17:03)
[2023-11-22] MEDS: ATORVASTATIN 20 MG TABLET PO SCH (17:04)
[2023-11-22] MEDS: MAGNESIUM OXIDE 400 MG TABLET PO SCH (17:06)
[2023-11-22] MEDS: MULTIVIT, IRON, MIN NO. 8, FA TABLET PO SCH (17:06)
[2023-11-22] MEDS: CHOLECALCIFEROL 1,000 UNIT TABLET PO SCH (17:07)
[2023-11-22] MEDS: LATANOPROST OPHT DROP 2.5 ML BOTTLE EACHEYE SCH (21:31)
[2023-11-23] VITALS (10 sets, daily range): TEMP 97.6–98; O2SAT 98–99
[2023-11-23] MEDS: IPRATROPIUM/ALBUTEROL SULFATE 3 ML AMPUL.NEB NEB SCH ×4 (00:30→19:10)
[2023-11-23] MEDS: LEVOTHYROXINE SODIUM 112 MCG TABLET PO SCH (06:52)
[2023-11-23] MEDS: BUDESONIDE 0.5 MG/2 ML NEBU NEB SCH ×2 (07:31→19:10)
[2023-11-23] MEDS: VITAMINS A AND D 5 GM UD PKT TP SCH ×2 (09:00→21:00)
[2023-11-23] MEDS: DORZOLAMIDE/TIMOLOL OPHT DROP 10 ML BOTTLE EACHEYE SCH ×2 (09:00→16:18)
[2023-11-23] MEDS: REMEDY ESSENTIAL ZINC PASTE 113 GM TP SCH ×2 (09:00→21:00)
[2023-11-23] MEDS: MIRALAX 17 GM POWD.PACK PO SCH ×2 (09:00→16:19)
[2023-11-23] MEDS: FERROUS SULFATE 325 MG TABEC PO SCH (09:00)
[2023-11-23] MEDS: FOLIC ACID 1 MG TABLET PO SCH (09:00)
[2023-11-23] MEDS: levETIRAcetam 500 MG/5 ML LIQUID UDC PO SCH ×2 (09:00→16:18)
[2023-11-23] MEDS: TOLTERODINE 1 MG TABLET PO SCH ×2 (09:00→16:18)
[2023-11-23] MEDS: HYDROGEN PEROXIDE 3% 118 ML BOTTLE TP SCH ×2 (09:17→19:10)
[2023-11-23] MEDS: GUAIFENESIN SUGAR FREE 100 MG/5 ML UDC PO PRN ×2 (10:13→16:23)
[2023-11-23] MEDS: BENZONATATE 100 MG CAPSULE PO PRN ×2 (10:14→16:23)
[2023-11-23] MEDS: OMEGA-3 FATTY ACIDS/FISH OIL CAPSULE PO SCH (18:00)
[2023-11-23] MEDS: ATORVASTATIN 20 MG TABLET PO SCH (18:00)
[2023-11-23] MEDS: ASPIRIN 81 MG TAB.CHEW PO SCH (18:00)
[2023-11-23] MEDS: MULTIVIT, IRON, MIN NO. 8, FA TABLET PO SCH (18:00)
[2023-11-23] MEDS: CHOLECALCIFEROL 1,000 UNIT TABLET PO SCH (18:00)
[2023-11-23] MEDS: MAGNESIUM OXIDE 400 MG TABLET PO SCH (18:00)
[2023-11-23] MEDS: LATANOPROST OPHT DROP 2.5 ML BOTTLE EACHEYE SCH (21:00)
[2023-11-24] VITALS (10 sets, daily range): TEMP 97.1–97.7; O2SAT 97–99
[2023-11-24] MEDS: IPRATROPIUM/ALBUTEROL SULFATE 3 ML AMPUL.NEB NEB SCH ×4 (01:33→19:30)
[2023-11-24] MEDS: LEVOTHYROXINE SODIUM 112 MCG TABLET PO SCH (05:58)
[2023-11-24] MEDS: BUDESONIDE 0.5 MG/2 ML NEBU NEB SCH ×2 (07:08→19:30)
[2023-11-24] MEDS: HYDROGEN PEROXIDE 3% 118 ML BOTTLE TP SCH ×2 (07:08→20:52)
[2023-11-24] MEDS: FERROUS SULFATE 325 MG TABEC PO SCH (08:49)
[2023-11-24] MEDS: TOLTERODINE 1 MG TABLET PO SCH ×2 (08:49→16:34)
[2023-11-24] MEDS: levETIRAcetam 500 MG/5 ML LIQUID UDC PO SCH ×2 (08:50→16:34)
[2023-11-24] MEDS: FOLIC ACID 1 MG TABLET PO SCH (08:50)
[2023-11-24] MEDS: MIRALAX 17 GM POWD.PACK PO SCH ×2 (08:50→16:36)
[2023-11-24] MEDS: DORZOLAMIDE/TIMOLOL OPHT DROP 10 ML BOTTLE EACHEYE SCH ×2 (08:50→16:34)
[2023-11-24] MEDS: REMEDY ESSENTIAL ZINC PASTE 113 GM TP SCH ×2 (08:53→21:40)
[2023-11-24] MEDS: VITAMINS A AND D 5 GM UD PKT TP SCH ×2 (08:55→21:40)
[2023-11-24] MEDS: BENZONATATE 100 MG CAPSULE PO PRN (16:39)
[2023-11-24] MEDS: GUAIFENESIN SUGAR FREE 100 MG/5 ML UDC PO PRN (16:39)
[2023-11-24] MEDS: ASPIRIN 81 MG TAB.CHEW PO SCH (18:48)
[2023-11-24] MEDS: MAGNESIUM OXIDE 400 MG TABLET PO SCH (18:49)
[2023-11-24] MEDS: OMEGA-3 FATTY ACIDS/FISH OIL CAPSULE PO SCH (18:49)
[2023-11-24] MEDS: ATORVASTATIN 20 MG TABLET PO SCH (18:49)
[2023-11-24] MEDS: CHOLECALCIFEROL 1,000 UNIT TABLET PO SCH (18:49)
[2023-11-24] MEDS: MULTIVIT, IRON, MIN NO. 8, FA TABLET PO SCH (18:49)
[2023-11-24] MEDS: LATANOPROST OPHT DROP 2.5 ML BOTTLE EACHEYE SCH (21:40)
[2023-11-25] VITALS (10 sets, daily range): TEMP 97–98; O2SAT 97–99
[2023-11-25] MEDS: IPRATROPIUM/ALBUTEROL SULFATE 3 ML AMPUL.NEB NEB SCH ×4 (02:23→19:16)
[2023-11-25] MEDS: LEVOTHYROXINE SODIUM 112 MCG TABLET PO SCH (05:56)
[2023-11-25] MEDS: HYDROGEN PEROXIDE 3% 118 ML BOTTLE TP SCH ×2 (07:35→19:16)
[2023-11-25] MEDS: BUDESONIDE 0.5 MG/2 ML NEBU NEB SCH ×2 (07:35→19:16)
[2023-11-25] MEDS: DORZOLAMIDE/TIMOLOL OPHT DROP 10 ML BOTTLE EACHEYE SCH ×2 (09:44→16:18)
[2023-11-25] MEDS: FERROUS SULFATE 325 MG TABEC PO SCH (09:44)
[2023-11-25] MEDS: FOLIC ACID 1 MG TABLET PO SCH (09:44)
[2023-11-25] MEDS: TOLTERODINE 1 MG TABLET PO SCH ×2 (09:44→16:18)
[2023-11-25] MEDS: levETIRAcetam 500 MG/5 ML LIQUID UDC PO SCH ×2 (09:45→16:18)
[2023-11-25] MEDS: MIRALAX 17 GM POWD.PACK PO SCH ×2 (09:45→16:19)
[2023-11-25] MEDS: REMEDY ESSENTIAL ZINC PASTE 113 GM TP SCH ×2 (09:46→21:38)
[2023-11-25] MEDS: VITAMINS A AND D 5 GM UD PKT TP SCH ×2 (09:46→21:38)
[2023-11-25] MEDS: GUAIFENESIN SUGAR FREE 100 MG/5 ML UDC PO PRN (09:48)
[2023-11-25] MEDS: BENZONATATE 100 MG CAPSULE PO PRN (09:49)
[2023-11-25] MEDS: OMEGA-3 FATTY ACIDS/FISH OIL CAPSULE PO SCH (17:01)
[2023-11-25] MEDS: ATORVASTATIN 20 MG TABLET PO SCH (17:01)
[2023-11-25] MEDS: ASPIRIN 81 MG TAB.CHEW PO SCH (17:01)
[2023-11-25] MEDS: MULTIVIT, IRON, MIN NO. 8, FA TABLET PO SCH (17:02)
[2023-11-25] MEDS: CHOLECALCIFEROL 1,000 UNIT TABLET PO SCH (17:02)
[2023-11-25] MEDS: MAGNESIUM OXIDE 400 MG TABLET PO SCH (17:02)
[2023-11-25] MEDS: LATANOPROST OPHT DROP 2.5 ML BOTTLE EACHEYE SCH (21:38)
[2023-11-26] VITALS (10 sets, daily range): TEMP 97.4; O2SAT 97–99
[2023-11-26] MEDS: IPRATROPIUM/ALBUTEROL SULFATE 3 ML AMPUL.NEB NEB SCH ×4 (00:30→19:03)
[2023-11-26] MEDS: LEVOTHYROXINE SODIUM 112 MCG TABLET PO SCH (06:05)
[2023-11-26] MEDS: HYDROGEN PEROXIDE 3% 118 ML BOTTLE TP SCH ×2 (07:24→19:03)
[2023-11-26] MEDS: BUDESONIDE 0.5 MG/2 ML NEBU NEB SCH ×2 (07:24→19:03)
[2023-11-26] MEDS: FOLIC ACID 1 MG TABLET PO SCH (09:41)
[2023-11-26] MEDS: FERROUS SULFATE 325 MG TABEC PO SCH (09:41)
[2023-11-26] MEDS: REMEDY ESSENTIAL ZINC PASTE 113 GM TP SCH ×2 (09:41→20:49)
[2023-11-26] MEDS: TOLTERODINE 1 MG TABLET PO SCH ×2 (09:41→17:57)
[2023-11-26] MEDS: MIRALAX 17 GM POWD.PACK PO SCH ×2 (09:41→17:57)
[2023-11-26] MEDS: VITAMINS A AND D 5 GM UD PKT TP SCH ×2 (09:41→20:49)
[2023-11-26] MEDS: DORZOLAMIDE/TIMOLOL OPHT DROP 10 ML BOTTLE EACHEYE SCH ×2 (09:41→17:57)
[2023-11-26] MEDS: levETIRAcetam 500 MG/5 ML LIQUID UDC PO SCH ×2 (09:41→17:57)
[2023-11-26] MEDS: BENZONATATE 100 MG CAPSULE PO PRN ×2 (09:42→17:58)
[2023-11-26] MEDS: GUAIFENESIN SUGAR FREE 100 MG/5 ML UDC PO PRN ×2 (09:42→17:58)
[2023-11-26] MEDS: ATORVASTATIN 20 MG TABLET PO SCH (17:57)
[2023-11-26] MEDS: CHOLECALCIFEROL 1,000 UNIT TABLET PO SCH (17:57)
[2023-11-26] MEDS: OMEGA-3 FATTY ACIDS/FISH OIL CAPSULE PO SCH (17:57)
[2023-11-26] MEDS: MAGNESIUM OXIDE 400 MG TABLET PO SCH (17:57)
[2023-11-26] MEDS: ASPIRIN 81 MG TAB.CHEW PO SCH (17:57)
[2023-11-26] MEDS: MULTIVIT, IRON, MIN NO. 8, FA TABLET PO SCH (17:57)
[2023-11-26] MEDS: LATANOPROST OPHT DROP 2.5 ML BOTTLE EACHEYE SCH (20:49)
[2023-11-27] VITALS (10 sets, daily range): TEMP 98; O2SAT 97–99
[2023-11-27] MEDS: IPRATROPIUM/ALBUTEROL SULFATE 3 ML AMPUL.NEB NEB SCH ×4 (00:31→19:25)
[2023-11-27] MEDS: LEVOTHYROXINE SODIUM 112 MCG TABLET PO SCH (06:01)
[2023-11-27] MEDS: HYDROGEN PEROXIDE 3% 118 ML BOTTLE TP SCH ×2 (07:54→20:39)
[2023-11-27] MEDS: BUDESONIDE 0.5 MG/2 ML NEBU NEB SCH ×2 (07:54→19:25)
[2023-11-27] MEDS: FERROUS SULFATE 325 MG TABEC PO SCH (09:59)
[2023-11-27] MEDS: FOLIC ACID 1 MG TABLET PO SCH (09:59)
[2023-11-27] MEDS: MIRALAX 17 GM POWD.PACK PO SCH ×2 (09:59→17:00)
[2023-11-27] MEDS: GUAIFENESIN SUGAR FREE 100 MG/5 ML UDC PO PRN (09:59)
[2023-11-27] MEDS: VITAMINS A AND D 5 GM UD PKT TP SCH ×2 (09:59→21:02)
[2023-11-27] MEDS: BENZONATATE 100 MG CAPSULE PO PRN (09:59)
[2023-11-27] MEDS: levETIRAcetam 500 MG/5 ML LIQUID UDC PO SCH ×2 (09:59→17:00)
[2023-11-27] MEDS: REMEDY ESSENTIAL ZINC PASTE 113 GM TP SCH ×2 (09:59→21:02)
[2023-11-27] MEDS: TOLTERODINE 1 MG TABLET PO SCH ×2 (09:59→17:00)
[2023-11-27] MEDS: DORZOLAMIDE/TIMOLOL OPHT DROP 10 ML BOTTLE EACHEYE SCH ×2 (09:59→17:00)
[2023-11-27] MEDS: ASPIRIN 81 MG TAB.CHEW PO SCH (18:00)
[2023-11-27] MEDS: ATORVASTATIN 20 MG TABLET PO SCH (18:00)
[2023-11-27] MEDS: CHOLECALCIFEROL 1,000 UNIT TABLET PO SCH (18:00)
[2023-11-27] MEDS: MULTIVIT, IRON, MIN NO. 8, FA TABLET PO SCH (18:00)
[2023-11-27] MEDS: OMEGA-3 FATTY ACIDS/FISH OIL CAPSULE PO SCH (18:00)
[2023-11-27] MEDS: MAGNESIUM OXIDE 400 MG TABLET PO SCH (18:00)
[2023-11-27] MEDS: LATANOPROST OPHT DROP 2.5 ML BOTTLE EACHEYE SCH (21:02)
[2023-11-28] VITALS (10 sets, daily range): TEMP 98–98.2; O2SAT 97–99
[2023-11-28] MEDS: IPRATROPIUM/ALBUTEROL SULFATE 3 ML AMPUL.NEB NEB SCH ×4 (01:13→19:05)
[2023-11-28] MEDS: LEVOTHYROXINE SODIUM 112 MCG TABLET PO SCH (05:47)
[2023-11-28] MEDS: BUDESONIDE 0.5 MG/2 ML NEBU NEB SCH ×2 (07:16→19:05)
[2023-11-28] MEDS: HYDROGEN PEROXIDE 3% 118 ML BOTTLE TP SCH ×2 (07:16→19:05)
[2023-11-28] MEDS: DORZOLAMIDE/TIMOLOL OPHT DROP 10 ML BOTTLE EACHEYE SCH ×2 (08:38→17:00)
[2023-11-28] MEDS: TOLTERODINE 1 MG TABLET PO SCH ×2 (08:39→17:00)
[2023-11-28] MEDS: FERROUS SULFATE 325 MG TABEC PO SCH (08:39)
[2023-11-28] MEDS: FOLIC ACID 1 MG TABLET PO SCH (08:41)
[2023-11-28] MEDS: levETIRAcetam 500 MG/5 ML LIQUID UDC PO SCH ×2 (08:41→17:00)
[2023-11-28] MEDS: MIRALAX 17 GM POWD.PACK PO SCH ×2 (08:41→17:00)
[2023-11-28] MEDS: REMEDY ESSENTIAL ZINC PASTE 113 GM TP SCH ×2 (08:42→20:38)
[2023-11-28] MEDS: VITAMINS A AND D 5 GM UD PKT TP SCH ×2 (08:42→20:38)
[2023-11-28] MEDS: BENZONATATE 100 MG CAPSULE PO PRN ×2 (08:44→18:49)
[2023-11-28] MEDS: GUAIFENESIN SUGAR FREE 100 MG/5 ML UDC PO PRN ×2 (08:44→18:49)
[2023-11-28] MEDS: MULTIVIT, IRON, MIN NO. 8, FA TABLET PO SCH (18:49)
[2023-11-28] MEDS: CHOLECALCIFEROL 1,000 UNIT TABLET PO SCH (18:49)
[2023-11-28] MEDS: ASPIRIN 81 MG TAB.CHEW PO SCH (18:49)
[2023-11-28] MEDS: ATORVASTATIN 20 MG TABLET PO SCH (18:49)
[2023-11-28] MEDS: MAGNESIUM OXIDE 400 MG TABLET PO SCH (18:49)
[2023-11-28] MEDS: OMEGA-3 FATTY ACIDS/FISH OIL CAPSULE PO SCH (18:49)
[2023-11-28] MEDS: LATANOPROST OPHT DROP 2.5 ML BOTTLE EACHEYE SCH (20:38)
[2023-11-29] VITALS (9 sets, daily range): TEMP 97.8; O2SAT 97–99
[2023-11-29] MEDS: IPRATROPIUM/ALBUTEROL SULFATE 3 ML AMPUL.NEB NEB SCH ×4 (00:30→19:12)
[2023-11-29] MEDS: LEVOTHYROXINE SODIUM 112 MCG TABLET PO SCH (05:34)
[2023-11-29] MEDS: BUDESONIDE 0.5 MG/2 ML NEBU NEB SCH ×2 (08:15→19:12)
[2023-11-29] MEDS: HYDROGEN PEROXIDE 3% 118 ML BOTTLE TP SCH ×2 (08:15→19:12)
[2023-11-29] MEDS: TOLTERODINE 1 MG TABLET PO SCH ×2 (09:22→17:38)
[2023-11-29] MEDS: DORZOLAMIDE/TIMOLOL OPHT DROP 10 ML BOTTLE EACHEYE SCH ×2 (09:22→17:38)
[2023-11-29] MEDS: FERROUS SULFATE 325 MG TABEC PO SCH (09:22)
[2023-11-29] MEDS: MIRALAX 17 GM POWD.PACK PO SCH ×2 (09:23→17:38)
[2023-11-29] MEDS: FOLIC ACID 1 MG TABLET PO SCH (09:23)
[2023-11-29] MEDS: levETIRAcetam 500 MG/5 ML LIQUID UDC PO SCH ×2 (09:23→17:38)
[2023-11-29] MEDS: BENZONATATE 100 MG CAPSULE PO PRN (09:24)
[2023-11-29] MEDS: GUAIFENESIN SUGAR FREE 100 MG/5 ML UDC PO PRN (09:24)
[2023-11-29] MEDS: VITAMINS A AND D 5 GM UD PKT TP SCH ×2 (09:24→21:00)
[2023-11-29] MEDS: REMEDY ESSENTIAL ZINC PASTE 113 GM TP SCH ×2 (09:24→21:00)
[2023-11-29] MEDS: ASPIRIN 81 MG TAB.CHEW PO SCH (17:38)
[2023-11-29] MEDS: MAGNESIUM OXIDE 400 MG TABLET PO SCH (17:38)
[2023-11-29] MEDS: OMEGA-3 FATTY ACIDS/FISH OIL CAPSULE PO SCH (17:38)
[2023-11-29] MEDS: CHOLECALCIFEROL 1,000 UNIT TABLET PO SCH (17:39)
[2023-11-29] MEDS: MULTIVIT, IRON, MIN NO. 8, FA TABLET PO SCH (17:39)
[2023-11-29] MEDS: ATORVASTATIN 20 MG TABLET PO SCH (17:39)
[2023-11-29] MEDS: LATANOPROST OPHT DROP 2.5 ML BOTTLE EACHEYE SCH (21:00)
[2023-11-30] VITALS (10 sets, daily range): TEMP 98.2–98.3; O2SAT 97–99
[2023-11-30] MEDS: IPRATROPIUM/ALBUTEROL SULFATE 3 ML AMPUL.NEB NEB SCH ×4 (00:30→19:09)
[2023-11-30] MEDS: LEVOTHYROXINE SODIUM 112 MCG TABLET PO SCH (06:00)
[2023-11-30] MEDS: HYDROGEN PEROXIDE 3% 118 ML BOTTLE TP SCH ×2 (07:10→19:09)
[2023-11-30] MEDS: BUDESONIDE 0.5 MG/2 ML NEBU NEB SCH ×2 (07:10→19:09)
[2023-11-30] MEDS: FOLIC ACID 1 MG TABLET PO SCH (08:38)
[2023-11-30] MEDS: MIRALAX 17 GM POWD.PACK PO SCH ×2 (08:38→17:08)
[2023-11-30] MEDS: FERROUS SULFATE 325 MG TABEC PO SCH (08:38)
[2023-11-30] MEDS: TOLTERODINE 1 MG TABLET PO SCH ×2 (08:38→17:08)
[2023-11-30] MEDS: DORZOLAMIDE/TIMOLOL OPHT DROP 10 ML BOTTLE EACHEYE SCH ×2 (08:38→17:10)
[2023-11-30] MEDS: levETIRAcetam 500 MG/5 ML LIQUID UDC PO SCH ×2 (08:38→17:08)
[2023-11-30] MEDS: VITAMINS A AND D 5 GM UD PKT TP SCH ×2 (08:39→21:00)
[2023-11-30] MEDS: REMEDY ESSENTIAL ZINC PASTE 113 GM TP SCH ×2 (08:39→21:00)
[2023-11-30] MEDS: ASPIRIN 81 MG TAB.CHEW PO SCH (17:08)
[2023-11-30] MEDS: CHOLECALCIFEROL 1,000 UNIT TABLET PO SCH (17:08)
[2023-11-30] MEDS: ATORVASTATIN 20 MG TABLET PO SCH (17:08)
[2023-11-30] MEDS: MAGNESIUM OXIDE 400 MG TABLET PO SCH (17:08)
[2023-11-30] MEDS: MULTIVIT, IRON, MIN NO. 8, FA TABLET PO SCH (17:08)
[2023-11-30] MEDS: OMEGA-3 FATTY ACIDS/FISH OIL CAPSULE PO SCH (17:08)
[2023-11-30] MEDS: LATANOPROST OPHT DROP 2.5 ML BOTTLE EACHEYE SCH (21:00)
[2023-12-01] VITALS (10 sets, daily range): TEMP 98.6–98.7; O2SAT 97–99
[2023-12-01] MEDS: IPRATROPIUM/ALBUTEROL SULFATE 3 ML AMPUL.NEB NEB SCH ×4 (00:30→19:07)
[2023-12-01] MEDS: LEVOTHYROXINE SODIUM 112 MCG TABLET PO SCH (05:37)
[2023-12-01] MEDS: BUDESONIDE 0.5 MG/2 ML NEBU NEB SCH ×2 (07:33→19:07)
[2023-12-01] MEDS: HYDROGEN PEROXIDE 3% 118 ML BOTTLE TP SCH ×2 (07:33→19:07)
[2023-12-01] MEDS: DORZOLAMIDE/TIMOLOL OPHT DROP 10 ML BOTTLE EACHEYE SCH ×2 (09:07→17:03)
[2023-12-01] MEDS: GUAIFENESIN SUGAR FREE 100 MG/5 ML UDC PO PRN ×2 (09:10→17:03)
[2023-12-01] MEDS: levETIRAcetam 500 MG/5 ML LIQUID UDC PO SCH ×2 (09:10→17:03)
[2023-12-01] MEDS: TOLTERODINE 1 MG TABLET PO SCH ×2 (09:10→17:03)
[2023-12-01] MEDS: FOLIC ACID 1 MG TABLET PO SCH (09:10)
[2023-12-01] MEDS: MIRALAX 17 GM POWD.PACK PO SCH ×2 (09:10→17:03)
[2023-12-01] MEDS: REMEDY ESSENTIAL ZINC PASTE 113 GM TP SCH ×2 (09:10→20:32)
[2023-12-01] MEDS: FERROUS SULFATE 325 MG TABEC PO SCH (09:10)
[2023-12-01] MEDS: BENZONATATE 100 MG CAPSULE PO PRN ×2 (09:10→17:03)
[2023-12-01] MEDS: VITAMINS A AND D 5 GM UD PKT TP SCH ×2 (09:10→20:32)
[2023-12-01] MEDS: MULTIVIT, IRON, MIN NO. 8, FA TABLET PO SCH (17:03)
[2023-12-01] MEDS: MAGNESIUM OXIDE 400 MG TABLET PO SCH (17:03)
[2023-12-01] MEDS: CHOLECALCIFEROL 1,000 UNIT TABLET PO SCH (17:03)
[2023-12-01] MEDS: ASPIRIN 81 MG TAB.CHEW PO SCH (17:03)
[2023-12-01] MEDS: OMEGA-3 FATTY ACIDS/FISH OIL CAPSULE PO SCH (17:03)
[2023-12-01] MEDS: ATORVASTATIN 20 MG TABLET PO SCH (17:03)
[2023-12-01] MEDS: LATANOPROST OPHT DROP 2.5 ML BOTTLE EACHEYE SCH (20:32)
[2023-12-02 01:04] VITALS: O2SAT 97
[2023-12-02 01:14] VITALS: O2SAT 99
[2023-12-02] MEDS: IPRATROPIUM/ALBUTEROL SULFATE 3 ML AMPUL.NEB NEB SCH (01:18)
[2023-12-02] MEDS: LEVOTHYROXINE SODIUM 112 MCG TABLET PO SCH (05:41)
== END 2023-11-30 23:59 | disposition still patient (30) | DRG 189 ==
LOC: SA → UNDOADMIN 12-03 06:39 → SA 12-03 06:39 → ICU 06-26 21:06 → SA1 06-26 21:20 → SA 06-29 18:05
PROVIDERS: ADMIT Internal Medicine Nephrology; ATTEND Internal Medicine Nephrology
DX: J96.11 Chronic respiratory failure with hypoxia (principal); I50.42 Chronic combined systolic (congestive) and diastolic (congestive) heart failure; E87.1 Hypo-osmolality and hyponatremia; E46 Unspecified protein-calorie malnutrition; J98.11 Atelectasis; L02.214 Cutaneous abscess of groin; I11.0 Hypertensive heart disease with heart failure; E03.9 Hypothyroidism, unspecified; E78.5 Hyperlipidemia, unspecified; G40.909 Epilepsy, unspecified, not intractable, without status epilepticus; I25.10 Atherosclerotic heart disease of native coronary artery without angina pectoris; K21.9 Gastro-esophageal reflux disease without esophagitis; R13.10 Dysphagia, unspecified; Z87.01 Personal history of pneumonia (recurrent); Z93.0 Tracheostomy status; D64.9 Anemia, unspecified; E61.1 Iron deficiency; E66.01 Morbid (severe) obesity due to excess calories
CPT/HCPCS: 36415; 71045; 83550; 83735; 84100; 84443; 85025; 86580; 90686; 94640; 94664; 97535-GO-CO; A4663; A6209; U0003